=== PATIENT | female | born 1955 | race Caucasian/White ===

== ENCOUNTER 2022-04-02 06:54 | Inpatient (IN) | payer MEDICARE, SELFPAY ==
[2022-04-02] VITALS (10 sets, daily range): BP systolic 119–141; BP diastolic 56–73; PULSE 76–115; RESP 15–28; TEMP 36.6–37.1; O2SAT 92–100; BMI 25.0
--- NOTE | 2022-04-02 | ECG_ITS ---
Test Reason : HYPOXIC Blood Pressure : / mmHG Vent. Rate : 080 BPM Atrial Rate : 080 BPM P-R Int : 128 ms QRS Dur : 080 ms QT Int : 376 ms P-R-T Axes : 066 062 070 degrees QTc Int : 433 ms Normal sinus rhythm ST & T wave abnormality, consider anterior ischemia Abnormal ECG When compared with ECG of 02-APR-2022 07:54, Premature supraventricular complexes are no longer Present Nonspecific T wave abnormality no longer evident in Inferior leads Referred By: Eliza Hendricks Electronically Signed By:LAURA SANDERSON MD
--- NOTE | ~2022-04-02 | CT_ITS ---
EXAMINATION: CT HEAD WITHOUT CONTRAST CLINICAL INFORMATION: Seizures. Altered mental status. COMPARISON: Brain MRI 10/08/2016. CT head 09/15/2012. TECHNIQUE: Contiguous axial imaging was performed from the skull base to vertex without intravenous administration of contrast. This CT examination was performed using dose optimization techniques as appropriate, variously including the following: *Automated exposure control *Adjustment of mA and/or kV according to patient size (this includes techniques or standardized protocols for targeted exams where dose is matched to indication/reason for exam; i.e. extremities or head) *Use of iterative reconstruction technique DLP: 702 mGy-cm FINDINGS: There is no acute intracranial hemorrhage or abnormal extra axial question. No intracranial mass effect or midline shift. Lateral and third ventricles are normal. No hydrocephalus. Jennings-white matter differentiation is grossly preserved and there is no evidence of acute territorial infarct. The calvarium and skull base are intact. Mastoid air cells and middle ear cavities are well aerated. No active paranasal sinus disease. CT/CT head/brain wo IV con IMPRESSION: Unremarkable CT scan of the head. No evidence of acute territorial infarct or hemorrhage. No intracranial mass effect or hydrocephalus.
--- NOTE | ~2022-04-02 | XR_ITS ---
EXAMINATION: XR CHEST CLINICAL INFORMATION: Dyspnea. COMPARISON: 09/15/2012 chest radiographs. TECHNIQUE: Frontal view of the chest was obtained. FINDINGS: No significant abnormality is noted involving the heart, lungs, mediastinum, bony thorax or soft tissues. XR/XR chest 1V IMPRESSION: No acute cardiopulmonary process.
--- NOTE | ~2022-04-02 | US_ITS ---
EXAMINATION: US VENOUS ULTRASOUND WITH DOPPLER LOWER EXTREMITY, BILATERAL CLINICAL INFORMATION: Hypoxia, lower extremity pain. On Eliquis. COMPARISON: None TECHNIQUE: Ultrasound of the deep veins is performed from the hip to the calf with compression sonography and color and pulse Doppler assessment. Spectral analysis with color-flow imaging is performed. FINDINGS: RIGHT: There is normal venous compression and respiratory variation and augmented flow. The visualized common femoral vein, superficial femoral vein, profunda femoral vein, popliteal vein, and the trifurcation region shows no evidence of deep venous thrombosis. There is no significant popliteal fossa cyst. LEFT: There is normal venous compression and respiratory variation and augmented flow. The visualized common femoral vein, superficial femoral vein, profunda femoral vein, popliteal vein, and the trifurcation region shows no evidence of deep venous thrombosis. There is no significant popliteal fossa cyst. If the patient's symptoms persist, followup ultrasound in 5 days 7 days might be of value to exclude proximal propagation from a non-visualized calf vein. US/US venous duplex LE BI IMPRESSION: No evidence for deep venous thrombosis in the visualized veins of the bilateral lower extremities.
--- NOTE | ~2022-04-02 | CT_ITS ---
EXAMINATION: CT ANGIOGRAM OF THE CHEST WITH AND WITHOUT CONTRAST (CT PULMONARY ANGIOGRAM FOR PE) CLINICAL INFORMATION: hypoxia, tachycardia COMPARISON: 10/22/2013 surgery TECHNIQUE: Prior to contrast administration, noncontrast localization images were obtained. Subsequently, multidetector volumetric imaging was performed from the thoracic inlet to below the diaphragms following the administration of 80 mL Omnipaque 350 intravenous contrast. No contrast reaction reported Sagittal, coronal, and MIP oblique sagittal reformatted images were obtained on the CT workstation, uploaded to PACS, and reviewed. This CT examination was performed using dose optimization techniques as appropriate, variously including the following: *Automated exposure control *Adjustment of mA and/or kV according to patient size (this includes techniques or standardized protocols for targeted exams where dose is matched to indication/reason for exam; i.e. extremities or head) *Use of iterative reconstruction technique Total exam dose-length product 290 mGy-cm FINDINGS: QUALITY OF STUDY/CONTRAST BOLUS: Satisfactory. PULMONARY ARTERIES: No central or segmental pulmonary emboli. THORACIC AORTA: No aneurysm or dissection. LUNG: Since the prior study in 2013, there is marked volume loss of the right upper lobe with corresponding hyperinflation of the right lower lobe. There is some degree of volume loss of the right middle lobe though less than what is noted of the right upper lobe. Mild central bronchial wall thickening. PLEURA: No pleural effusion or pneumothorax. MEDIASTINUM: Normal heart size. No pericardial effusion. No hilar or mediastinal lymphadenopathy. No evidence of septal bowing or right heart strain. CHEST WALL/AXILLA: No axillary or internal mammary lymphadenopathy. OSSEOUS STRUCTURES: Multilevel degenerative disc disease of the thoracic spine. No acute or suspicious osseous abnormality. UPPER ABDOMEN: Small to moderate hiatal hernia. No adrenal mass. Prior cholecystectomy. No reflux of contrast into the hepatic veins to suggest elevated right heart pressures. CT/CT angio chest PE protocol IMPRESSION: No pulmonary embolus seen. Since the prior study in 2013, there is marked volume loss of the right upper lobe with corresponding hyperinflation of the right lower lobe. Recommend correlation with history of prior surgery. Consider nonemergent pulmonary consultation for further evaluation including bronchoscopy as clinically indicated to exclude a central obstructing abnormality although no mass or lymphadenopathy is seen. VTE: negative
--- NOTE | 2022-04-02 07:04 | ECG_ITS ---
Test Reason : HYPOXIA Blood Pressure : / mmHG Vent. Rate : 093 BPM Atrial Rate : 093 BPM P-R Int : 136 ms QRS Dur : 074 ms QT Int : 332 ms P-R-T Axes : 072 060 091 degrees QTc Int : 412 ms Sinus rhythm with Premature supraventricular complexes ST & T wave abnormality, consider anterolateral ischemia Abnormal ECG When compared with ECG of 15-SEP-2012 18:42, Premature supraventricular complexes are now Present Inverted T waves have replaced nonspecific T wave abnormality in Anterior leads ST more depressed Inferior leads Referred By: Tiny Loyola Electronically Signed By:LAURA SANDERSON MD
--- NOTE | 2022-04-02 07:09 | ED.SOB ---
HPI - SOB/Dyspnea General Chief Complaint: Upper Respiratory Symptoms Stated Complaint: AMS,4PT REST D/T COMBATIVE PER EMS Source: patient and EMS Mode of arrival: EMS Limitations: altered mental status History of Present Illness HPI Narrative: 66 yo female with hx of afib on verapamil and eliquis, emphysema on 2.5L of home O2, former smoker was recently treated for URI not COVID at [facility] unsure when. Per EMS patient's heard a noise in the room next door and the patient was found thrashing around and altered. EMS notes O2 levels were very low undetectable on their machine patient was agitated and combative. She was put on oxygen and 4P restrains for safety. Once given O2 en route she woke up and improved drastically. MD elicited complaint: shortness of breath (AMS, hypoxia) Pertinent past history: COPD Onset (ago): unknown Context: recent illness Timing: improved Severity: severe Exacerbating factors: coughing Relieving factors: oxygen Known history of: COPD Associated symptoms: cough, wheezing, sputum production, chest congestion and other (AMS) Treatment prior to arrival: oxygen Related Data Allergies Allergy/AdvReac Type Severity Reaction Status Date / Time No Known Allergies Allergy Unverified 02/27/20 15:55 Review of Systems Review of Systems: ROS unable to be obtained due to altered mental status [facility] Past Medical History Attestation statement: The following information was validated with the patient. Medical History Afib Emphysema/COPD HTN (hypertension) Social History Social History (Updated 04/02/22 @ 07:17 by Tiny Loyola DO) Patient Tobacco Use Status: Former Tobacco user Smoked in Last 30 Days: No Use of substances other than those prescribed or required for medical reasons: No Advance Directives: No Physical Exam Vital Signs: Vital Signs: Last Vital Signs Temp 98.7 F 04/02/22 08:56 Pulse 115 H 04/02/22 09:56 Resp 26 H 04/02/22 09:56 BP 140/61 H 04/02/22 08:54 Pulse Ox 94 04/02/22 08:54 O2 Del Method 04/02/22 08:54 O2 Flow Rate 2.5 04/02/22 08:54 Oxygen Flow Rate 2 04/02/22 07:15 BMI result Body Mass Index 25.0 Appearance: Somnolent Oriented X3 - slow to respond. Mild acute distress. Eyes: Pupils equal, round and reactive to light. ENT: Pharynx normal. Atraumatic Neck: Normal inspection. Neck supple. CVS: irregular heart rate and rhythm. Pulses normal. Respiratory: mild respiratory distress - tachypnea/retractions. Breath sounds diminished - coarse cough wheezes throughout Abdomen: Soft and nontender. Skin: Skin warm and dry. Normal skin color. Normal skin turgor. Extremities: No lower extremity edema. No calf ttp Neuro: Oriented X 3. No motor deficit. No sensory deficit. Course Course Course Narrative: improving on neb - alert and oriented x 3. states she felt okay prior to sleep still cannot give history of [place] visit. asking or records 718am Monday went to [facility] just in ED sent home with prednisone x 4 days - no antibiotics. in and out of afib low dose dilt ordered, repeat xopenex ordered [facility] notes from 2019 possible seizure was on lamictal EEG no overt seizure activity episode afib vs seizure has been taking off seizure medications since then. c/o hand pain in both hands - at sites of restraint has some bruising starting, full ROM of hands but is is painful to her, suspect contusions, brisk pulses in both hands any coughing throws patient into bronchospastic fit- tessalon ordered of note patient could have had seizure as well today cannot rule out - GCS 15, alert and oriented. no headaches doubt ICH started dilt gtt for rapid afib converted to NSR off dilt gtt MDM - SOB/Dyspnea MDM Narrative Medical decision making narrative: 66 yo female with hx of afib on verapamil and eliquis, emphysema on 2.5L of home O2, former smoker - at this time presents with agitation/hypoxia at home was combative off of her home o2. Had recent infection but unsure what that means. She is improving since O2 with EMS and neb treatment in ED. At this time suspect hypoxia as cause of her initial AMS given such improvement with supplementation. At this time doubt ICH given improvement with oxygen, lack of headache, no trauma reported. Will need labs, lactic acid, cultures, 7.5mg neb, IV steroids, IV antibiotics. Planned admit given recent treatment and failed outpatient therapy for presumed URI. Lab Data Result diagrams: 04/02/22 07:40 04/02/22 07:40 Labs: Lab Results 04/02/22 04/02/22 04/02/22 Range/Units 07:40 07:40 07:40 WBC 11.2 H (4.8-10.8) X10*3/uL RBC 4.58 (4.20-5.50) X10*6/uL Hgb 13.6 (12.0-16.0) g/dl Hct 41.1 (37.0-47.0) % MCV 89.7 (80.0-98.0) fL MCH 29.7 (27.0-33.0) pg MCHC 33.1 (31.0-35.0) g/dl RDW 13.2 (11.0-16.0) % Plt Count 235 (160-400) X10*3/uL MPV 9.3 L (9.4-12.3) fL Immature Gran % (Auto) 1.2 H (0.0-0.4) % Neut % (Auto) 81.4 H (45-73) % Lymph % (Auto) 12.5 L (20-40) % [place] % (Auto) 4.4 (2-11) % Eos % (Auto) 0.2 (0-4) % Baso % (Auto) 0.3 (0-2) % Lymph # (Auto) 1.4 (1.2-4.9) X10*3/uL [place] # (Auto) 0.5 (0.1-1.2) X10*3/uL Eos # (Auto) 0.0 (0.0-0.4) X10*3/uL Baso # (Auto) 0.0 (0.0-0.2) X10*3/uL Abs Immat Gran (auto) 0.13 H (0.00-0.03) X10*3/uL Absolute Neuts (auto) 9.2 H (2.0-8.3) x10*3/uL Absolute Nucleated RBC 0.000 (0.0-0.012) X10*3/uL Nucleated RBC % (auto) 0.0 (0.0-0.2) /100WBC PT (10.0-13.1) SEC INR (0.9-1.1) VBG pH (7.32-7.43) VBG pCO2 mmHg VBG pO2 mmHg VBG HCO3 (22-26) mmol/L VBG O2 Saturation % VBG Base Excess mmol/L Sodium 144 (135-145) mmol/L Potassium 3.0 L (3.3-5.1) mmol/L Chloride 101 (96-108) mmol/L Carbon Dioxide 29 (22-29) mmol/L Anion Gap 17 (12-20) BUN 14 (9-16) mg/dL Creatinine 0.75 (0.5-1.4) mg/dL Estim Creat Clear Calc 68.1 Estimated GFR > 60 Random Glucose 111 (60-115) mg/dL Lactic Acid (0.5-2.0) mmol/L Calcium 9.3 (8.4-10.2) mg/dL Magnesium 2.0 (1.6-2.6) mg/dL Total Bilirubin 0.4 (0.0-1.0) mg/dL Direct Bilirubin 0.2 (0.0-0.5) mg/dL AST 24 (5-31) U/L ALT 19 (0-31) U/L Alkaline Phosphatase 137 H (39-117) U/L Troponin I High Sens (<3.5-17.0) ng/L B-Natriuretic Peptide 87 (<100) pg/mL Total Protein 7.1 (6.5-8.0) g/dL Albumin 4.5 (3.5-5.0) g/dL Lipase 15 (8-78) U/L Procalcitonin ng/mL COVID-19 ([facility]) (Negative) COVID-19 Clin Com 04/02/22 04/02/22 04/02/22 Range/Units 07:40 07:40 07:40 WBC (4.8-10.8) X10*3/uL RBC (4.20-5.50) X10*6/uL Hgb (12.0-16.0) g/dl Hct (37.0-47.0) % MCV (80.0-98.0) fL MCH (27.0-33.0) pg MCHC (31.0-35.0) g/dl RDW (11.0-16.0) % Plt Count (160-400) X10*3/uL MPV (9.4-12.3) fL Immature Gran % (Auto) (0.0-0.4) % Neut % (Auto) (45-73) % Lymph % (Auto) (20-40) % [place] % (Auto) (2-11) % Eos % (Auto) (0-4) % Baso % (Auto) (0-2) % Lymph # (Auto) (1.2-4.9) X10*3/uL [place] # (Auto) (0.1-1.2) X10*3/uL Eos # (Auto) (0.0-0.4) X10*3/uL Baso # (Auto) (0.0-0.2) X10*3/uL Abs Immat Gran (auto) (0.00-0.03) X10*3/uL Absolute Neuts (auto) (2.0-8.3) x10*3/uL Absolute Nucleated RBC (0.0-0.012) X10*3/uL Nucleated RBC % (auto) (0.0-0.2) /100WBC PT 14.6 H (10.0-13.1) SEC INR 1.3 H (0.9-1.1) VBG pH (7.32-7.43) VBG pCO2 mmHg VBG pO2 mmHg VBG HCO3 (22-26) mmol/L VBG O2 Saturation % VBG Base Excess mmol/L Sodium (135-145) mmol/L Potassium (3.3-5.1) mmol/L Chloride (96-108) mmol/L Carbon Dioxide (22-29) mmol/L Anion Gap (12-20) BUN (9-16) mg/dL Creatinine (0.5-1.4) mg/dL Estim Creat Clear Calc Estimated GFR Random Glucose (60-115) mg/dL Lactic Acid 2.6 H* (0.5-2.0) mmol/L Calcium (8.4-10.2) mg/dL Magnesium (1.6-2.6) mg/dL Total Bilirubin (0.0-1.0) mg/dL Direct Bilirubin (0.0-0.5) mg/dL AST (5-31) U/L ALT (0-31) U/L Alkaline Phosphatase (39-117) U/L Troponin I High Sens (<3.5-17.0) ng/L B-Natriuretic Peptide (<100) pg/mL Total Protein (6.5-8.0) g/dL Albumin (3.5-5.0) g/dL Lipase (8-78) U/L Procalcitonin ng/mL COVID-19 ([facility]) Negative (Negative) COVID-19 Clin Com See Note 04/02/22 04/02/22 04/02/22 Range/Units 07:40 07:40 07:48 WBC (4.8-10.8) X10*3/uL RBC (4.20-5.50) X10*6/uL Hgb (12.0-16.0) g/dl Hct (37.0-47.0) % MCV (80.0-98.0) fL MCH (27.0-33.0) pg MCHC (31.0-35.0) g/dl RDW (11.0-16.0) % Plt Count (160-400) X10*3/uL MPV (9.4-12.3) fL Immature Gran % (Auto) (0.0-0.4) % Neut % (Auto) (45-73) % Lymph % (Auto) (20-40) % [place] % (Auto) (2-11) % Eos % (Auto) (0-4) % Baso % (Auto) (0-2) % Lymph # (Auto) (1.2-4.9) X10*3/uL [place] # (Auto) (0.1-1.2) X10*3/uL Eos # (Auto) (0.0-0.4) X10*3/uL Baso # (Auto) (0.0-0.2) X10*3/uL Abs Immat Gran (auto) (0.00-0.03) X10*3/uL Absolute Neuts (auto) (2.0-8.3) x10*3/uL Absolute Nucleated RBC (0.0-0.012) X10*3/uL Nucleated RBC % (auto) (0.0-0.2) /100WBC PT (10.0-13.1) SEC INR (0.9-1.1) VBG pH 7.35 (7.32-7.43) VBG pCO2 54 mmHg VBG pO2 41 mmHg VBG HCO3 30 H (22-26) mmol/L VBG O2 Saturation 65.0 % VBG Base Excess 4.0 mmol/L Sodium (135-145) mmol/L Potassium (3.3-5.1) mmol/L Chloride (96-108) mmol/L Carbon Dioxide (22-29) mmol/L Anion Gap (12-20) BUN (9-16) mg/dL Creatinine (0.5-1.4) mg/dL Estim Creat Clear Calc Estimated GFR Random Glucose (60-115) mg/dL Lactic Acid (0.5-2.0) mmol/L Calcium (8.4-10.2) mg/dL Magnesium (1.6-2.6) mg/dL Total Bilirubin (0.0-1.0) mg/dL Direct Bilirubin (0.0-0.5) mg/dL AST (5-31) U/L ALT (0-31) U/L Alkaline Phosphatase (39-117) U/L Troponin I High Sens 5.1 (<3.5-17.0) ng/L B-Natriuretic Peptide (<100) pg/mL Total Protein (6.5-8.0) g/dL Albumin (3.5-5.0) g/dL Lipase (8-78) U/L Procalcitonin 0.03 ng/mL COVID-19 ([facility]) (Negative) COVID-19 Clin Com 04/02/22 Range/Units 09:00 WBC (4.8-10.8) X10*3/uL RBC (4.20-5.50) X10*6/uL Hgb (12.0-16.0) g/dl Hct (37.0-47.0) % MCV (80.0-98.0) fL MCH (27.0-33.0) pg MCHC (31.0-35.0) g/dl RDW (11.0-16.0) % Plt Count (160-400) X10*3/uL MPV (9.4-12.3) fL Immature Gran % (Auto) (0.0-0.4) % Neut % (Auto) (45-73) % Lymph % (Auto) (20-40) % [place] % (Auto) (2-11) % Eos % (Auto) (0-4) % Baso % (Auto) (0-2) % Lymph # (Auto) (1.2-4.9) X10*3/uL [place] # (Auto) (0.1-1.2) X10*3/uL Eos # (Auto) (0.0-0.4) X10*3/uL Baso # (Auto) (0.0-0.2) X10*3/uL Abs Immat Gran (auto) (0.00-0.03) X10*3/uL Absolute Neuts (auto) (2.0-8.3) x10*3/uL Absolute Nucleated RBC (0.0-0.012) X10*3/uL Nucleated RBC % (auto) (0.0-0.2) /100WBC PT (10.0-13.1) SEC INR (0.9-1.1) VBG pH (7.32-7.43) VBG pCO2 mmHg VBG pO2 mmHg VBG HCO3 (22-26) mmol/L VBG O2 Saturation % VBG Base Excess mmol/L Sodium (135-145) mmol/L Potassium (3.3-5.1) mmol/L Chloride (96-108) mmol/L Carbon Dioxide (22-29) mmol/L Anion Gap (12-20) BUN (9-16) mg/dL Creatinine (0.5-1.4) mg/dL Estim Creat Clear Calc Estimated GFR Random Glucose (60-115) mg/dL Lactic Acid (0.5-2.0) mmol/L Calcium (8.4-10.2) mg/dL Magnesium (1.6-2.6) mg/dL Total Bilirubin (0.0-1.0) mg/dL Direct Bilirubin (0.0-0.5) mg/dL AST (5-31) U/L ALT (0-31) U/L Alkaline Phosphatase (39-117) U/L Troponin I High Sens 10.2 D (<3.5-17.0) ng/L B-Natriuretic Peptide (<100) pg/mL Total Protein (6.5-8.0) g/dL Albumin (3.5-5.0) g/dL Lipase (8-78) U/L Procalcitonin ng/mL COVID-19 ([facility]) (Negative) COVID-19 Clin Com ECG Data Attestation: I personally reviewed and interpreted this ECG as follows: ECG interpretation date: 04/02/22 ECG interpretation time: 08:03 Interpretation: Rate: 93 Rhythm: NSR with PACs [place]: normal Normal QRS complex. ST T wave : ST depressions slight depressions II, III, aVF, V1-V6 no YVETTE qTC: normal prior studies: none available INITIAL PART OF THE RHYTHM APPEARED AFIB THEN NSR The study has been interpreted contemporaneously by me. EKG#2 Rate: 80 Rhythm: NSR [place]: normal Normal P waves. Normal HEATHER. Normal QRS complex. ST T wave : inverted t waves aVL, V1-V3, nonspecific V4-V6 no YVETTE qTC: normal prior studies: converted to NSR The study has been interpreted contemporaneously by me. . Critical Care Time Critical Care Time Critical Care Time: Yes Total Critical Care Time: 60 Attestation: hour long neb, IV steroids, IV antibiotics, reassessments, dilt gtt, review of outside records I attest to this time spent taking care of the patient Discharge Plan Discharge Clinical Impression: Acute exacerbation of chronic obstructive pulmonary disease, Atrial fibrillation with rapid ventricular response, Acute hypokalemia, Acidosis, lactic Upper respiratory infection Qualifiers: URI type: unspecified URI Qualified Code(s): J06.9 - Acute upper respiratory infection, unspecified Patient Disposition: Admitted As Inpatient
[2022-04-02] MEDS: Albuterol Sulfate 5 MG, Albuterol/Iprat 2.5/0.5MG 3 ML 3 ML INHALE (07:12)
[2022-04-02 07:52] LABS: MANUAL DIFF FLAG NO; Venous Blood Gas Refer to POC result
[2022-04-02 07:53] LABS: Basophils Percent Auto 0.3 % (0-2); Eosinophils Percent Auto 0.2 % (0-4); Hematocrit 41.1 % (37.0-47.0); Hemoglobin 13.6 g/dl (12.0-16.0); Imm Gran Abs Auto 0.13 X10*3/uL (0.00-0.03); Imm Gran Pct Auto 1.2 % (0.0-0.4); Lymphocytes Absolute Auto 1.4 X10*3/uL (1.2-4.9); Lymphocytes Percent Auto 12.5 % (20-40); Mean Corpuscular HGB Conc 33.1 g/dl (31.0-35.0); Mean Corpuscular Hemoglobin 29.7 pg (27.0-33.0); Mean Corpuscular Volume 89.7 fL (80.0-98.0); Mean Platelet Volume 9.3 fL (9.4-12.3); Monocytes Absolute Auto 0.5 X10*3/uL (0.1-1.2); Monocytes Percent Auto 4.4 % (2-11); Neutrophils Absolute Auto 9.2 x10*3/uL (2.0-8.3); Neutrophils Percent Auto 81.4 % (45-73); Platelet Count 235 X10*3/uL (160-400); Red Blood Count 4.58 X10*6/uL (4.20-5.50); Red Cell Distribution Width 13.2 % (11.0-16.0); White Blood Count 11.2 X10*3/uL (4.8-10.8)
[2022-04-02 07:56] LABS: VBG HCO3 30 mmol/L (22-26); VBG pCO2 54 mmHg; VBG pH 7.35 (7.32-7.43); VBG pO2 41 mmHg
[2022-04-02] MEDS: cefTRIAXone sodium 1 GM in 0.9 % Sodium Chloride 50 ML IV (08:04)
[2022-04-02] MEDS: methylPREDNISolone Sod Succ 125 MG/2 ML VIAL IVPUSH (08:05)
[2022-04-02 08:07] LABS: INTERNATIONAL NORM RATIO 1.3 (0.9-1.1); Prothrombin Time 14.6 SEC (10.0-13.1)
[2022-04-02 08:24] LABS: Alanine Aminotransferase 19 U/L (0-31); Albumin Level 4.5 g/dL (3.5-5.0); Alkaline Phosphatase 137 U/L (39-117); Anion Gap 17 (12-20); Aspartate Amino Transferase 24 U/L (5-31); Bilirubin Direct 0.2 mg/dL (0.0-0.5); Bilirubin Total 0.4 mg/dL (0.0-1.0); Blood Urea Nitrogen 14 mg/dL (9-16); Calcium 9.3 mg/dL (8.4-10.2); Carbon Dioxide 29 mmol/L (22-29); Chloride 101 mmol/L (96-108); Creatinine Clr Calc Pharmacy 68.1; Estimated Glomerular Filt Rate > 60; Glucose Random 111 mg/dL (60-115); Lipase 15 U/L (8-78); Sodium 144 mmol/L (135-145); Total Protein 7.1 g/dL (6.5-8.0)
[2022-04-02 08:26] LABS: Troponin-I High Sensitivity 5.1 ng/L (<3.5-17.0)
[2022-04-02 08:30] LABS: B Type Natriuretic Peptide 87 pg/mL (<100)
[2022-04-02 08:31] LABS: COVID-19 Test Negative (Negative); IDNOW Serial# 16C4AD1C
[2022-04-02 08:44] LABS: Procalcitonin 0.03 ng/mL
[2022-04-02 08:45] LABS: Lactic Acid 2.6 mmol/L (0.5-2.0)
[2022-04-02] MEDS: dilTIAZem HCL 50 MG/10 ML VIAL IVPUSH (09:04)
[2022-04-02] MEDS: Azithromycin 500 MG in 0.9 % Sodium Chloride 250 ML 125 MG IV (09:06)
[2022-04-02] MEDS: Potassium Chloride Packet 20 MEQ PACKET 40 MEQ PO (09:06)
[2022-04-02] MEDS: 0.9 % Sodium Chloride 500 ML IV (09:17)
[2022-04-02 09:49] LABS: Reflex Lactate? Lactic Acid Added
[2022-04-02] MEDS: Albuterol Sulfate (0.083%) 2.5 MG/3 ML VIAL.NEB INHALE (09:55)
[2022-04-02] MEDS: Benzonatate 100 MG CAPSULE 200 MG PO (10:12)
--- NOTE | 2022-04-02 10:12 | PC.NURSE ---
pt had moderate amt of stool on bedpan. Feels better after updraft
[2022-04-02 10:45] LABS: Troponin-I High Sensitivity 10.2 ng/L (<3.5-17.0)
[2022-04-02] MEDS: dilTIAZem HCL 125 MG in 0.9 % Sodium Chloride 100 ML IVCONT (11:00)
[2022-04-02] MEDS: Acetaminophen 325 MG TABLET 975 MG PO (11:26)
[2022-04-02 12:21] LABS: ~Lactic Acid-LAB USE ONLY 1.7 mmol/L (0.5-2.0)
--- NOTE | 2022-04-02 12:59 | PHA.MEDREC ---
Pharmacy Consult ? Medication Reconciliation Pharmacy has completed the medication reconciliation. SPOKE WITH PATIENT IN ED WHO KNEW ALL MEDICATIONS. STATES SHE HAS WEANED HERSELF OFF OF LAMICTAL AND PAROXETINE AND HAS NOT TAKEN IN OVER A WEEK.
[2022-04-02 13:10] LABS: D Dimer High Sensitivity 302 NG/ML
--- NOTE | 2022-04-02 13:57 | PM.IMHP ---
History of Present Illness Date of Service: 04/02/22 Attending physician on admission: Ra Woodson Chief Complaint: seizure, hypoxia 66-year-old female with history of emphysema with chronic respiratory failure on 2 L home oxygen at baseline, atrial fibrillation anticoagulated with Eliquis, history of non-small cell lung cancer s/p right lobectomy, former smoker, and history of seizures previously on Lamictal which patient self discontinued presented to the ED this morning via EMS after her found her thrashing and altered. Upon arrival, EMS found the patient combative and placed her in 4 point restraints. She was hypoxic in the 60s and lost consciousness. She improved greatly with the administration of supplemental O2. On arrival patient was tachycardic to 115, tachypneic to 26 with oximetry of 92% on room air. She was replaced on 2 L O2. CXR was negative. EKG showed sinus tachycardia, rate [address]/T-wave abnormality and PVCs. Troponins negative. WBC 11.2. D-dimer 302. Venous duplex bilaterally negative. Initial lactic acid 2.6, repeat lactic acid 1.7. BNP 87. She was noted to be in AFib with RVR on monitoring tech given 5 mg diltiazem push without improvement and started on Cardizem drip. Patient to be admitted for seizure, COPD exacerbation, and AFib with RVR. Currently pt reports feeling fatigued. Does endorse productive cough and wheezing. Review of Systems Review of Systems: General: No fevers, malaise, unintentional weight loss Cardiovascular: No chest pain, palpitations, or leg edema Respiratory: +cough, wheezing. No shortness of breath GI: No abdominal pain, nausea, vomiting, diarrhea, constipation, melena, hematochezia : No dysuria, hematuria, increased urinary frequency Neuro: +seizure, +ams. No headaches, weakness, paresthesias Skin: No rashes or lesions [facility] Medical History (Updated 04/02/22 @ 14:29 by ALEXYS Solares) Afib Emphysema/COPD GERD (gastroesophageal reflux disease) HTN (hypertension) Seizure Family History (Updated 04/02/22 @ 14:13 by ALEXYS Solares) Mother Small cell lung cancer Father Stomach cancer Brother Diabetes Social History (Updated 04/02/22 @ 07:17 by Tiny Milla, DO) Patient Tobacco Use Status: Former Tobacco user Smoked in Last 30 Days: No Use of substances other than those prescribed or required for medical reasons: No Advance Directives: No Meds Allergies Allergy/AdvReac Type Severity Reaction Status Date / Time No Known Allergies Allergy Unverified 02/27/20 15:55 Active Medications: Current Medications Acetaminophen (Acetaminophen 325 Mg Tablet) 650 mg PO Q6H PRN PRN Reason: mild pain, headache Diltiazem HCl 125 mg/ Sodium (Chloride) 125 mls @ 0 mls/hr IVCONT .Q0M [facility]; Protocol Last Titration: 04/02/22 12:15 Dose: 0 mg/hr, 0 mls/hr Ondansetron HCl (Ondansetron Odt 4 Mg Tab.Rapdis) 4 mg TRANSLINGU Q8H PRN PRN Reason: Nausea and Vomiting Pharmacy Consult (Consult Rx Perform Med Rec) 1 each MISCELLANE ONCE PRN PRN Reason: Consult order Sodium Chloride (0.9 % Sodium Chloride Flush 3 Ml Syringe) [facility] Medications Medication Instructions Recorded Confirmed Last Taken Type albuterol sulfate 90 mcg/actuation 2 puff inhalation Q4H PRN 04/02/22 04/02/22 Unknown History aerosol inhaler Shortness Of Breath apixaban 5 mg tablet (Eliquis) 1 tab PO BID 04/02/22 04/02/22 04/01/22 History azithromycin 250 mg tablet 1 tab PO DAILY 04/02/22 04/02/22 04/01/22 History lorazepam 0.5 mg tablet 1 tab PO DAILY PRN anxiety 04/02/22 04/02/22 Unknown History omeprazole 40 mg capsule,delayed 1 cap PO BID@0630,1630 04/02/22 04/02/22 04/01/22 History release prednisone 20 mg tablet 1 tab PO BID 04/02/22 04/02/22 04/01/22 History verapamil 120 mg tablet,extended 1 tab PO BEDTIME 04/02/22 04/02/22 04/01/22 History release verapamil 240 mg tablet,extended 1 tab PO BEDTIME 04/02/22 04/02/22 04/01/22 History release Physical Exam Vital Signs and Narrative: Vital Signs: Last Vital Signs Temp 98.7 F 04/02/22 08:56 Pulse 78 04/02/22 12:16 Resp 15 04/02/22 12:16 BP 119/56 L 04/02/22 12:16 Pulse Ox 97 04/02/22 12:16 O2 Del Method 04/02/22 12:16 O2 Flow Rate 2.5 04/02/22 12:16 Oxygen Flow Rate 2 04/02/22 07:15 BMI result Body Mass Index 25.0 Constitutional - Awake and Alert, No apparent distress Eyes - PERRLA, EOMI Cardiovascular - S1S2, RRR, No edema Respiratory - Diffuse wheezing bilaterally/. Normal lung expansion, Normal respiratory effort, No respiratory distress Gastrointestinal - NT / ND; +BS; No rebound or guarding Extremities - no calf tenderness bilaterally, no swelling Skin - Warm/Dry Neurological - Alert & oriented x3, CN II -XII in tact, 5/5 strength bue and ble Psychological - Appropriate affect Results Labs CBC and Chem 7: 04/02/22 07:40 04/02/22 15:11 Labs: Laboratory Results - last 24 hr 04/02/22 04/02/22 04/02/22 07:40 07:40 07:40 MCV 89.7 MCH 29.7 MCHC 33.1 RDW 13.2 Plt Count 235 MPV 9.3 L Immature Gran % (Auto) 1.2 H Neut % (Auto) 81.4 H Lymph % (Auto) 12.5 L [place] % (Auto) 4.4 Eos % (Auto) 0.2 Baso % (Auto) 0.3 Lymph # (Auto) 1.4 [place] # (Auto) 0.5 Eos # (Auto) 0.0 Baso # (Auto) 0.0 Abs Immat Gran (auto) 0.13 H Absolute Neuts (auto) 9.2 H Absolute Nucleated RBC 0.000 Nucleated RBC % (auto) 0.0 PT INR D-Dimer High Sensitivty VBG pH VBG pCO2 VBG pO2 VBG HCO3 VBG O2 Saturation VBG Base Excess Anion Gap 17 Estim Creat Clear Calc 68.1 Estimated GFR > 60 Random Glucose 111 Lactic Acid Lactic Acid F/U @ 2Hr Calcium 9.3 Magnesium 2.0 Total Bilirubin 0.4 Direct Bilirubin 0.2 AST 24 ALT 19 Alkaline Phosphatase 137 H Troponin I High Sens B-Natriuretic Peptide 87 Total Protein 7.1 Albumin 4.5 Lipase 15 Procalcitonin COVID-19 ([facility]) COVID-19 Clin Com 04/02/22 04/02/22 04/02/22 07:40 07:40 07:40 MCV MCH MCHC RDW Plt Count MPV Immature Gran % (Auto) Neut % (Auto) Lymph % (Auto) [place] % (Auto) Eos % (Auto) Baso % (Auto) Lymph # (Auto) [place] # (Auto) Eos # (Auto) Baso # (Auto) Abs Immat Gran (auto) Absolute Neuts (auto) Absolute Nucleated RBC Nucleated RBC % (auto) PT 14.6 H INR 1.3 H D-Dimer High Sensitivty 302 VBG pH VBG pCO2 VBG pO2 VBG HCO3 VBG O2 Saturation VBG Base Excess Anion Gap Estim Creat Clear Calc Estimated GFR Random Glucose Lactic Acid 2.6 H* Lactic Acid F/U @ 2Hr Calcium Magnesium Total Bilirubin Direct Bilirubin AST ALT Alkaline Phosphatase Troponin I High Sens B-Natriuretic Peptide Total Protein Albumin Lipase Procalcitonin COVID-19 ([facility]) Negative COVID-19 Clin Com See Note 04/02/22 04/02/22 04/02/22 07:40 07:40 07:48 MCV MCH MCHC RDW Plt Count MPV Immature Gran % (Auto) Neut % (Auto) Lymph % (Auto) [place] % (Auto) Eos % (Auto) Baso % (Auto) Lymph # (Auto) [place] # (Auto) Eos # (Auto) Baso # (Auto) Abs Immat Gran (auto) Absolute Neuts (auto) Absolute Nucleated RBC Nucleated RBC % (auto) PT INR D-Dimer High Sensitivty VBG pH 7.35 VBG pCO2 54 VBG pO2 41 VBG HCO3 30 H VBG O2 Saturation 65.0 VBG Base Excess 4.0 Anion Gap Estim Creat Clear Calc Estimated GFR Random Glucose Lactic Acid Lactic Acid F/U @ 2Hr Calcium Magnesium Total Bilirubin Direct Bilirubin AST ALT Alkaline Phosphatase Troponin I High Sens 5.1 B-Natriuretic Peptide Total Protein Albumin Lipase Procalcitonin 0.03 COVID-19 ([facility]) COVID-19 Clin Com 04/02/22 04/02/22 09:00 11:48 MCV MCH MCHC RDW Plt Count MPV Immature Gran % (Auto) Neut % (Auto) Lymph % (Auto) [place] % (Auto) Eos % (Auto) Baso % (Auto) Lymph # (Auto) [place] # (Auto) Eos # (Auto) Baso # (Auto) Abs Immat Gran (auto) Absolute Neuts (auto) Absolute Nucleated RBC Nucleated RBC % (auto) PT INR D-Dimer High Sensitivty VBG pH VBG pCO2 VBG pO2 VBG HCO3 VBG O2 Saturation VBG Base Excess Anion Gap Estim Creat Clear Calc Estimated GFR Random Glucose Lactic Acid Lactic Acid F/U @ 2Hr 1.7 Calcium Magnesium Total Bilirubin Direct Bilirubin AST ALT Alkaline Phosphatase Troponin I High Sens 10.2 D B-Natriuretic Peptide Total Protein Albumin Lipase Procalcitonin COVID-19 ([facility]) COVID-19 Clin Com Imaging Radiologist's Impressions: Impressions Chest X-Ray 04/02/22 07:50 IMPRESSION: No acute cardiopulmonary process. Venous Duplex 04/02/22 13:21 IMPRESSION: No evidence for deep venous thrombosis in the visualized veins of the bilateral lower extremities. Assessment and Plan (1) Seizure: Status: Acute (2) Acute exacerbation of chronic obstructive pulmonary disease: Status: Acute (3) Acute and chronic respiratory failure with hypoxia: Status: Acute (4) Atrial fibrillation with rapid ventricular response: Status: Acute Plan 66-year-old female with history of emphysema with chronic respiratory failure on 2 L home oxygen at baseline, atrial fibrillation anticoagulated with Eliquis, history of non-small cell lung cancer s/p right lobectomy, former smoker, and history of seizures previously on Lamictal which patient self discontinued admitted for seizures with acute on chronic hypoxic respiratory failure and afib with rvr. #Possible seizure- unspecified type -History of seizures pt discontinued lamictal on her own. Found thrashing with AMS, hypoxia, elevated lactic acid 2.6 (repeat 1.7, not severe sepsis), leukocytosis 11 (likely reactive, not sepsis), and post ictal -neurology consulted -head CT ordered -initiate Lamictal 25 mg twice daily -seizure precautions -nursing bedside swallow evaluation -admit to telemetry # acute on chronic hypoxic respiratory failure likely secondary to seizure versus COPD exacerbation -on 2 L home O2. EMS found patient hypoxic with oximetry in the 60s. Currently 2 L O2 with oximetry 97% -continue supplemental O2 to maintain oxygen saturation greater than 92 % # atrial fibrillation with RVR -EKG showing sinus rhythm with AFib with RVR heart rate 115 noted on monitoring tech -given 5 mg diltiazem push with limited improvement in the ER and started on diltiazem drip -converted to sinus rhythm -Dilt drip discontinued. Initiate verapamil which she takes at home 90 mg q.i.d. resume home dose verapamil 360 mg at bedtime tomorrow -continue Eliquis -repeat EKG -cardiology consulted -admit to telemetry # abnormal EKG -sinus rhythm with ST/T-wave abnormalities including new T-wave inversions -denies any chest pain -troponins negative -cardiology consult # acute COPD exacerbation -CXR negative -patient with acute on chronic hypoxic respiratory failure -IV Solu-Medrol -Duonebs q4h while awake -continue supplemental O2. On 2 L O2 at home -azithromycin x3 days # elevated D-dimer 302 -bilaterally anus duplex negative -patient asymptomatic -D-dimer elevation likely secondary to seizure and is covered by Eliquis, PE unlikely -consider additional workup if worsening hypoxia #Hypokalemia -Given 40meq kcl in ed -repeat bmp at 1500 DVT prophylaxis-on Eliquis Full code Patient requires inpatient stay of at least 2 midnights due to acute on chronic hypoxic respiratory failure secondary to COPD exacerbation or seizure as well as atrial fibrillation with RVR requiring diltiazem drip and IV Solu-Medrol and supplemental oxygen support above baseline Quality Stroke Does the patient have a stroke diagnosis?: No VTE Prior VTE?: No VTE Risk Level:: Medical - moderate - high VTE Device Contraindication: Treatment Not Indicated VTE Drug Contraindication: N/A - Med Ordered
[2022-04-02 14:55] LABS: Appearance Urine Clear; Color Urine Yellow; Glucose Urine UA Negative (Negative); Leukocyte Esterase Urine Trace (Negative); Nitrite Urine Negative (Negative); Specific Gravity - Urine 1.015 (1.005-1.025); UMIC TRIGGER UACC YES; Urine Blood Negative (Negative); Urine Ketones Negative (Negative); Urine Protein Trace mg/dL (Neg-Trace)
[2022-04-02 15:04] LABS: Bacteria Urine Trace (None Seen); Hyaline Casts Urine 0-2 /LPF (0-2); RBC Urine 0-2 /HPF (0-2); UACC Culture Trigger YES
[2022-04-02 15:56] LABS: Anion Gap 16 (12-20); Blood Urea Nitrogen 14 mg/dL (9-16); Calcium 8.6 mg/dL (8.4-10.2); Carbon Dioxide 25 mmol/L (22-29); Chloride 106 mmol/L (96-108); Estimated Glomerular Filt Rate > 60; Glucose Random 153 mg/dL (60-115); Potassium 4.1 mmol/L (3.3-5.1); Sodium 143 mmol/L (135-145)
--- NOTE | 2022-04-02 15:56 | P.CNNE_ITS ---
History of Present Illness Data of Consult Service Date: 04/02/22 Primary Care Provider: Giovanna Garcia NP HPI Reason for consult: Seizure, COPD exacerbation This is a 66-year-old female with history of emphysema with chronic respiratory failure on 2 L home oxygen at baseline, atrial fibrillation anticoagulated with Eliquis, non-small cell lung cancer s/p right lobectomy, and history of seizures previously on Lamictal which patient self discontinued. She presented to the ED this morning via EMS after her found her thrashing and altered.? Upon arrival, EMS found the patient combative and placed her in 4 point restraints.? She was hypoxic in the 60s and lost consciousness.? She improved greatly with the administration of supplemental O2.? On arrival patient was tachycardic to 115, tachypneic to 26 with oximetry of 92% on room air.? She was replaced on 2 L O2.? CXR was negative.? EKG showed sinus tachycardia, rate [address]/T-wave abnormality and PVCs.? Troponins negative.? WBC 11.2.? D-dimer 302.? Venous duplex bilaterally negative.? Initial lactic acid 2.6, repeat lactic acid 1.7.? BNP 87.? She was noted to be in AFib with RVR on patient monitor given 5 mg diltiazem push without improvement and started on Cardizem drip.? Patient to be admitted for seizure, COPD exacerbation, and AFib with RVR. Currently pt reports feeling fatigued. CT brain was negative Review of Systems Review of Systems: General: No fevers, malaise, unintentional weight loss Cardiovascular: No chest pain, palpitations, or leg edema Respiratory: +cough, wheezing. No shortness of breath GI: No abdominal pain, nausea, vomiting, diarrhea, constipation, melena, hematochezia : No dysuria, hematuria, increased urinary frequency Neuro: +seizure, +ams. No headaches, weakness, paresthesias Skin: No rashes or lesions PMFSH Past Medical History Medical History (Updated 04/02/22 @ 14:29 by ALEXYS Solares) Afib Emphysema/COPD GERD (gastroesophageal reflux disease) HTN (hypertension) Seizure Family History Family History (Updated 04/02/22 @ 14:13 by ALEXYS Solares) Mother Small cell lung cancer Father Stomach cancer Brother Diabetes Social History Social History (Updated 04/02/22 @ 07:17 by Tiny Loyola DO) Patient Tobacco Use Status: Former Tobacco user Smoked in Last 30 Days: No Use of substances other than those prescribed or required for medical reasons: No Advance Directives: No Meds Allergies Allergy/AdvReac Type Severity Reaction Status Date / Time No Known Allergies Allergy Unverified 02/27/20 15:55 Active Medications: Current Medications Acetaminophen (Acetaminophen 325 Mg Tablet) 650 mg PO Q6H PRN PRN Reason: mild pain, headache Albuterol/Ipratropium (Albuterol/Iprat 2.5/0.5mg 3 Ml Ampul.Neb) 3 ml INHALE RQ4H WHILE AWAKE SHELBI Apixaban (Apixaban 5 Mg Tablet) 5 mg PO BID SHELBI Guaifenesin (Guaifenesin 200 Mg/10 Ml 10 Ml Liquid) 10 ml PO Q6H PRN PRN Reason: Cough Azithromycin 500 mg/ Sodium (Chloride) 250 mls @ 125 mls/hr IV Q24H SHELBI Lamotrigine (Lamotrigine 25 Mg Tablet) 25 mg PO BID SHELBI Lorazepam (Lorazepam 0.5 Mg Tablet) 0.5 mg PO DAILY PRN PRN Reason: anxiety Methylprednisolone Sodium Succinate (Methylprednisolone Sod Succ 40 Mg/Ml Vial) 40 mg IVPUSH Q12H SHELBI Omeprazole (Omeprazole 40 Mg Capsule.Dr) 40 mg PO BID@0630,1630 SHELBI Ondansetron HCl (Ondansetron Odt 4 Mg Tab.Rapdis) 4 mg TRANSLINGU Q8H PRN PRN Reason: Nausea and Vomiting Pharmacy Consult (Consult Rx Perform Med Rec) 1 each MISCELLANE ONCE PRN PRN Reason: Consult order Sodium Chloride (0.9 % Sodium Chloride Flush 3 Ml Syringe) 3 ml IVFLUSH QSHIFT SHELBI Verapamil HCl (Verapamil Hcl 40 Mg Tablet) 90 mg PO QID SHELBI; Protocol Last Admin: 04/02/22 15:19 Dose: Not Given Home Medications Medication Instructions Recorded Confirmed Last Taken Type albuterol sulfate 90 mcg/actuation 2 puff inhalation Q4H PRN 04/02/22 04/02/22 Unknown History aerosol inhaler Shortness Of Breath apixaban 5 mg tablet (Eliquis) 1 tab PO BID 04/02/22 04/02/22 04/01/22 History azithromycin 250 mg tablet 1 tab PO DAILY 04/02/22 04/02/22 04/01/22 History lorazepam 0.5 mg tablet 1 tab PO DAILY PRN anxiety 04/02/22 04/02/22 Unknown History omeprazole 40 mg capsule,delayed 1 cap PO BID@0630,1630 04/02/22 04/02/22 04/01/22 History release prednisone 20 mg tablet 1 tab PO BID 04/02/22 04/02/22 04/01/22 History verapamil 120 mg tablet,extended 1 tab PO BEDTIME 04/02/22 04/02/22 04/01/22 History release verapamil 240 mg tablet,extended 1 tab PO BEDTIME 04/02/22 04/02/22 04/01/22 History release Physical Exam Vital Signs: Vital Signs: Last Vital Signs Temp 98.7 F 04/02/22 08:56 Pulse 76 04/02/22 15:46 Resp 28 H 04/02/22 15:46 BP 125/66 04/02/22 15:46 Pulse Ox 98 04/02/22 15:46 O2 Del Method 04/02/22 15:46 O2 Flow Rate 2.5 04/02/22 15:46 Oxygen Flow Rate 2 04/02/22 07:15 BMI result Body Mass Index 25.0 Neuro: Other: Non focal exam Results Labs CBC & Chem 7: 04/02/22 07:40 04/02/22 07:40 Labs: Short CBC 04/02/22 Range/Units 07:40 WBC 11.2 H (4.8-10.8) X10*3/uL Hgb 13.6 (12.0-16.0) g/dl Hct 41.1 (37.0-47.0) % Plt Count 235 (160-400) X10*3/uL BMP 04/02/22 07:40 Sodium 144 Potassium 3.0 L Chloride 101 Carbon Dioxide 29 BUN 14 Creatinine 0.75 Calcium 9.3 Liver Function 04/02/22 Range/Units 07:40 Total Bilirubin 0.4 (0.0-1.0) mg/dL Direct Bilirubin 0.2 (0.0-0.5) mg/dL AST 24 (5-31) U/L ALT 19 (0-31) U/L Alkaline Phosphatase 137 H (39-117) U/L Albumin 4.5 (3.5-5.0) g/dL Urine 04/02/22 Range/Units 14:48 Urine Color Yellow Urine Appearance Clear Urine pH 6.0 (5.0-9.0) Ur Specific [place] 1.015 (1.005-1.025) Urine Protein Trace (Neg-Trace) mg/dL Urine Glucose (UA) Negative (Negative) mg/dL Assessment and Plan (1) Seizure: Status: Acute PH of seizures, having stopped Lamotrigine on her own with probable breakthrough seizure CT brain negative. Recom. EEG on Monday. Restart Lamotrigine 200mg bid. (2) Acute exacerbation of chronic obstructive pulmonary disease: Status: Acute (3) Acute and chronic respiratory failure with hypoxia: Status: Acute (4) Atrial fibrillation with rapid ventricular response: Status: Acute Contnue Eliquis fro stroke prevention. Plan 66-year-old female with history of emphysema with chronic respiratory failure on 2 L home oxygen at baseline, atrial fibrillation anticoagulated with Eliquis, history of non-small cell lung cancer s/p right lobectomy, former smoker, and history of seizures previously on Lamictal which patient self discontinued admitted for seizures with acute on chronic hypoxic respiratory failure and afib with rvr. #Possible seizure- unspecified type -History of seizures pt discontinued lamictal on her own. Found thrashing with AMS, hypoxia, elevated lactic acid 2.6 (repeat 1.7, not severe sepsis), l eukocytosis 11 (likely reactive, not sepsis), and post ictal -neurology consulted -head CT ordered -initiate Lamictal 25 mg twice daily -seizure precautions -nursing bedside swallow evaluation -admit to telemetry # acute on chronic hypoxic respiratory failure likely secondary to seizure versus COPD exacerbation -on 2 L home O2. EMS found patient hypoxic with oximetry in the 60s. Currently 2 L O2 with oximetry 97% -continue supplemental O2 to maintain oxygen saturation greater than 92 % # atrial fibrillation with RVR -EKG showing sinus rhythm with AFib with RVR heart rate 115 noted on patient monitor -given 5 mg diltiazem push with limited improvement in the ER and started on diltiazem drip -converted to sinus rhythm -Dilt drip discontinued. Initiate verapamil which she takes at home 90 mg q.i.d. resume home dose verapamil 360 mg at bedtime tomorrow -continue Eliquis -repeat EKG -cardiology consulted -admit to telemetry # abnormal EKG -sinus rhythm with ST/T-wave abnormalities including new T-wave inversions -denies any chest pain -troponins negative -cardiology consult # acute COPD exacerbation -CXR negative -patient with acute on chronic hypoxic respiratory failure -IV Solu-Medrol -Duonebs q4h while awake -continue supplemental O2. On 2 L O2 at home -azithromycin x3 days # elevated D-dimer 302 -bilaterally anus duplex negative -patient asymptomatic -D-dimer elevation likely secondary to seizure and is covered by Eliquis, PE unlikely -consider additional workup if worsening hypoxia #Hypokalemia -Given 40meq kcl in ed -repeat bmp at 1500 DVT prophylaxis-on Eliquis Full code Patient requires inpatient stay of at least 2 midnights due to acute on chronic hypoxic respiratory failure secondary to COPD exacerbation or seizure as well as atrial fibrillation with RVR requiring diltiazem drip and IV Solu-Medrol and supplemental oxygen support above baseline Procedures Date of Service Date of Service: 04/02/22
[2022-04-02 16:05] LABS: Thyroid Stimulating Hormone 0.28 uIU/mL (0.32-4.0)
[2022-04-02] MEDS: Albuterol/Iprat 2.5/0.5MG 3 ML AMPUL.NEB INHALE ×2 (16:14→20:43)
--- NOTE | 2022-04-02 17:04 | PM.EVENT ---
Event Note Date of Service: 04/02/22 Event Note: This patient is seen and examined with APC. Patient seen and examined patient seems like was on Lamictal for seizure medication and she said she stopped spontaneously on her own and this morning above found to be having thrashin movements she movements and altered mental status afterwards -as brought to the hospital because of that. Has shortness of breath She denies any chest pain or abdominal pain or fever chills Lab imaging, EKG reviewed. Mild leukocytosis, troponin x2 flat,? EKG -no previous EKG available, EKG here shows some T nonspecific-wave inversions in inferior leads. Venous duplex negative CT head negative Physical exam : As per H&P except chest: Air entry slightly diminished at bases, has bilateral wheezing. assessment and plan coordinated in APCs note, Agree with the plan in addition: Continue nebs, steroids, antibiotics for COPD exacerbation Tachycardia and tachypnea possibly related to COPD exacerbation and nebs. Not septic. Initially was a question of AFib also as per ED physician-as per the patient she is already on Eliquis ekg looks nsr Stop Cardizem drip, start her home verapamil.check tsh levels . Cardio evaluation ? Question of seizure: Stopped her medication on her own May need to add back her Lamictal which was says she taking at home Will add neurology evaluation
[2022-04-02] MEDS: Omeprazole 40 MG CAPSULE.DR PO (18:26)
[2022-04-02] MEDS: 0.9 % Sodium Chloride Flush 3 ML SYRINGE IVFLUSH ×2 (18:27→23:57)
[2022-04-02] MEDS: iohexoL 350 MG/ML 100 ML INFUS..BTL IV (19:39)
[2022-04-02] MEDS: VerapamiL HCL 40 MG TABLET 90 MG PO (19:47)
[2022-04-02] MEDS: guaiFENesin 200 MG/10 ML 10 ML LIQUID PO (22:12)
[2022-04-02] MEDS: Apixaban 5 MG TABLET PO (22:13)
--- NOTE | 2022-04-02 22:46 | PC.NURSE ---
Last dose of Verapamil administered late at 19:47-spoke to Hakan, pharmacist who recommended to skip 21:00 dose tonight.
[2022-04-02] MEDS: lamoTRIgine 25 MG TABLET PO (22:51)
[2022-04-03 01:21] VITALS: BP 138/66; PULSE 72; RESP 20; O2SAT 96
[2022-04-03] MEDS: guaiFENesin 200 MG/10 ML 10 ML LIQUID PO ×2 (04:08→11:02)
--- NOTE | 2022-04-03 04:45 | PC.NURSE ---
CARE ASSUMED 23:15..AWAKE..ALERT..ORIENTED X3...REMAINS NSR..NO ECTOPY..O2 2 L/M CANNULA..NO DISTRESS...COUGH SYRUP X1 OVERNIGHT FOR HARSH COUGH WITH EFFECT...OOB TO COMMODE STEADY GAIT TO VOID..DENIES/OFFERS NO COMPLAINTS
[2022-04-03] MEDS: Omeprazole 40 MG CAPSULE.DR PO ×2 (05:49→15:24)
[2022-04-03] MEDS: Acetaminophen 325 MG TABLET 650 MG PO ×2 (05:52→20:10)
[2022-04-03] MEDS: Albuterol/Iprat 2.5/0.5MG 3 ML AMPUL.NEB INHALE ×3 (08:11→15:37)
[2022-04-03 08:12] VITALS: PULSE 81; RESP 20; O2SAT 99
[2022-04-03] MEDS: lamoTRIgine 25 MG TABLET PO ×2 (08:59→20:10)
[2022-04-03] MEDS: Apixaban 5 MG TABLET PO ×2 (08:59→20:10)
[2022-04-03] MEDS: 0.9 % Sodium Chloride Flush 3 ML SYRINGE IVFLUSH ×2 (08:59→15:24)
[2022-04-03] MEDS: methylPREDNISolone Sod Succ 40 MG/ML VIAL IVPUSH ×2 (09:03→18:00)
[2022-04-03] MEDS: Azithromycin 500 MG in 0.9 % Sodium Chloride 250 ML 125 MG IV (09:05)
[2022-04-03 09:43] LABS: Adenovirus PCR Not Detected (Not Detect.); Bordetella pertussis PCR Not Detected (Not Detect.)
[2022-04-03 09:44] LABS: Bordetella parapertussis PCR Not Detected (Not Detect.); Chlamydia pneumoniae PCR Not Detected (Not Detect.); Coronavirus 229E PCR Not Detected (Not Detect.); Coronavirus HKU1 PCR Not Detected (Not Detect.); Coronavirus NL63 PCR Not Detected (Not Detect.); Coronavirus OC43 PCR Not Detected (Not Detect.); Human metapneumovirus PCR Not Detected (Not Detect.); Influenza A PCR Not Detected (Not Detect.); Influenza B PCR Not Detected (Not Detect.); Mycoplasma pneumoniae PCR Not Detected (Not Detect.); Parainfluenza 1 PCR Not Detected (Not Detect.); Parainfluenza 2 PCR Not Detected (Not Detect.); Parainfluenza 3 PCR Not Detected (Not Detect.); Parainfluenza 4 PCR Not Detected (Not Detect.); RSV PCR Not Detected (Not Detect.); Rhino/Enterovirus PCR Not Detected (Not Detect.); SARS-CoV-2 PCR Not Detected (Not Detect.)
[2022-04-03] MEDS: VerapamiL HCL 40 MG TABLET 90 MG PO (11:12)
[2022-04-03 11:34] VITALS: PULSE 78; RESP 20; O2SAT 100
--- NOTE | 2022-04-03 12:09 | PM.CNCAR ---
History of Present Illness History of Present Illness Date of Service: 04/03/22 Requesting physician: Sachin Dubois Chief complaint: Atrial fibrillation Narrative: 67-year-old female who has history of atrial fibrillation on anticoagulation, history of subtle loss of vision in the right eye with recovery, COPD/ emphysema, lung cancer with previous lobectomy and history of seizures. She previously was on lamotrigine for seizures. She was started on Paxil and apparently had a lot of fatigue and tiredness and decided to stop both the medications. It appears he has not taking her seizure medication for few months. she was laying with her and started having seizure-like activity and then became unresponsive. EMS was call and the patient was brought into the emergency department. There is some report that she had atrial fibrillation in the ER and received Cardizem which reverted to sinus rhythm. There is no tracings or EKGs showing atrial fibrillation. One EKG appears irregular but is actually sinus with premature atrial complexes. She has been short of breath and wheezy and is being treated for COPD exacerbation. She is denying any chest discomfort or any significant breathing issues currently. She follows with [facility]. [facility] Past Medical History Medical History (Updated 04/03/22 @ 12:16 by Sumeet Trevino MD) Afib Emphysema/COPD GERD (gastroesophageal reflux disease) HTN (hypertension) Seizure Family History Family History (Updated 04/02/22 @ 14:13 by ALEXYS Solares) Mother Small cell lung cancer Father Stomach cancer Brother Diabetes Social History Social History (Updated 04/02/22 @ 07:17 by Tiny Loyola DO) Patient Tobacco Use Status: Former Tobacco user Smoked in Last 30 Days: No Use of substances other than those prescribed or required for medical reasons: No Advance Directives: No Meds Allergies Allergy/AdvReac Type Severity Reaction Status Date / Time No Known Allergies Allergy Unverified 02/27/20 15:55 Active Medications: Current Medications Acetaminophen (Acetaminophen 325 Mg Tablet) 650 mg PO Q6H PRN PRN Reason: mild pain, headache Last Admin: 04/03/22 05:52 Dose: 650 mg Albuterol/Ipratropium (Albuterol/Iprat 2.5/0.5mg 3 Ml Ampul.Neb) 3 ml INHALE RQ4H WHILE AWAKE SHELBI Last Admin: 04/03/22 11:34 Dose: 3 ml Apixaban (Apixaban 5 Mg Tablet) 5 mg PO BID [facility] Last Admin: 04/03/22 08:59 Dose: 5 mg Guaifenesin (Guaifenesin 200 Mg/10 Ml 10 Ml Liquid) 10 ml PO Q6H PRN PRN Reason: Cough Last Admin: 04/03/22 11:02 Dose: 10 ml Azithromycin 500 mg/ Sodium (Chloride) 250 mls @ 125 mls/hr IV Q24H [facility] Last Infusion: 04/03/22 12:01 Dose: Infused Lamotrigine (Lamotrigine 25 Mg Tablet) 25 mg PO BID [facility] Last Admin: 04/03/22 08:59 Dose: 25 mg Lorazepam (Lorazepam 0.5 Mg Tablet) 0.5 mg PO DAILY PRN PRN Reason: anxiety Methylprednisolone Sodium Succinate (Methylprednisolone Sod Succ 40 Mg/Ml Vial) 40 mg IVPUSH Q12H [facility] Last Admin: 04/03/22 09:03 Dose: 40 mg Midazolam HCl (Midazolam Hcl/Pf 2 Mg/2 Ml Vial) 2 mg IVPUSH Q2H PRN PRN Reason: Seizures Omeprazole (Omeprazole 40 Mg Capsule.Dr) 40 mg PO BID@0630,1630 [facility] Last Admin: 04/03/22 05:49 Dose: 40 mg Ondansetron HCl (Ondansetron Odt 4 Mg Tab.Rapdis) 4 mg TRANSLINGU Q8H PRN PRN Reason: Nausea and Vomiting Pharmacy Consult (Consult Rx Perform Med Rec) 1 each MISCELLANE ONCE PRN PRN Reason: Consult order Sodium Chloride (0.9 % Sodium Chloride Flush 3 Ml Syringe) 3 ml IVFLUSH QSHIFT [facility] Last Admin: 04/03/22 08:59 Dose: 3 ml Verapamil HCl (Verapamil Hcl 40 Mg Tablet) 80 mg PO QID [facility]; Protocol Home Medications Medication Instructions Recorded Confirmed Last Taken Type albuterol sulfate 90 mcg/actuation 2 puff inhalation Q4H PRN 04/02/22 04/02/22 Unknown History aerosol inhaler Shortness Of Breath apixaban 5 mg tablet (Eliquis) 1 tab PO BID 04/02/22 04/02/22 04/01/22 History azithromycin 250 mg tablet 1 tab PO DAILY 04/02/22 04/02/22 04/01/22 History lorazepam 0.5 mg tablet 1 tab PO DAILY PRN anxiety 04/02/22 04/02/22 Unknown History omeprazole 40 mg capsule,delayed 1 cap PO BID@0630,1630 04/02/22 04/02/22 04/01/22 History release prednisone 20 mg tablet 1 tab PO BID 04/02/22 04/02/22 04/01/22 History verapamil 120 mg tablet,extended 1 tab PO BEDTIME 04/02/22 04/02/22 04/01/22 History release verapamil 240 mg tablet,extended 1 tab PO BEDTIME 04/02/22 04/02/22 04/01/22 History release Physical Exam Vital Signs: Vital Signs: Last Vital Signs Temp 97.8 F 04/02/22 19:40 Pulse 78 04/03/22 11:34 Resp 20 04/03/22 11:34 BP 138/66 04/03/22 01:21 Pulse Ox 96 04/03/22 01:21 O2 Del Method 04/02/22 19:40 O2 Flow Rate 2 04/03/22 01:21 Oxygen Flow Rate 2 04/02/22 07:15 BMI result Body Mass Index 25.0 GENERAL APPEARANCE: in no acute distress, pleasant. NECK: no carotid bruit, no jugular venous distention. SKIN: no suspicious lesions, warm and dry. HEART: no murmurs, regular rate and rhythm. LUNGS: Mild ex between wheezes. ABDOMEN: soft, nontender. EXTREMITIES: no edema. PERIPHERAL PULSES: equal. NEUROLOGIC: No gross deficits, AAO X 3 Objective Labs and Meds Result diagrams: 04/02/22 07:40 04/02/22 15:11 Lab results: Laboratory Results - last 24 hr 04/02/22 04/02/22 04/02/22 07:40 11:48 14:48 D-Dimer High Sensitivty 302 Sodium Potassium Chloride Carbon Dioxide Anion Gap BUN Creatinine Estim Creat Clear Calc Estimated GFR Random Glucose Lactic Acid F/U @ 2Hr 1.7 Calcium TSH Urine Color Yellow Urine Appearance Clear Urine pH 6.0 Ur Specific Kirvin 1.015 Urine Protein Trace Urine Glucose (UA) Negative Urine Ketones Negative Urine Blood Negative Urine Nitrite Negative Ur Leukocyte Esterase Trace H Urine RBC 0-2 Urine WBC 6-10 Ur Squamous Epith Cells 6-10 Urine Bacteria Trace Hyaline Casts 0-2 Respiratory Panel Brennan Adenovirus (Rapid PCR) B.pert (TEM-PCR) B.parapertussis DNA PCR C. pneumoniae DNA (PCR) Coronavirus OC43 (PCR) Coronavirus HKU1 (PCR) Coronavirus 229E (PCR) Coronavirus NL63 (PCR) Human Metapneumovir PCR Influenza A (RT-PCR) Influenza B (RT-PCR) M. pneumoniae (PCR) Parainfluenza 1 (PCR) Parainfluenza 2 (PCR) Parainfluenza 3 (PCR) Parainfluenza 4 (PCR) RSV (PCR) Entero/Rhino (PCR) SARS-CoV-2 RNA (RT-PCR) 04/02/22 04/02/22 15:11 16:40 D-Dimer High Sensitivty Sodium 143 Potassium 4.1 D Chloride 106 Carbon Dioxide 25 Anion Gap 16 BUN 14 Creatinine 0.73 Estim Creat Clear Calc 70.0 Estimated GFR > 60 Random Glucose 153 H Lactic Acid F/U @ 2Hr Calcium 8.6 D TSH 0.28 L Urine Color Urine Appearance Urine pH Ur Specific Kirvin Urine Protein Urine Glucose (UA) Urine Ketones Urine Blood Urine Nitrite Ur Leukocyte Esterase Urine RBC Urine WBC Ur Squamous Epith Cells Urine Bacteria Hyaline Casts Respiratory Panel Brennan See Note Adenovirus (Rapid PCR) Not Detected B.pert (TEM-PCR) Not Detected B.parapertussis DNA PCR Not Detected C. pneumoniae DNA (PCR) Not Detected Coronavirus OC43 (PCR) Not Detected Coronavirus HKU1 (PCR) Not Detected Coronavirus 229E (PCR) Not Detected Coronavirus NL63 (PCR) Not Detected Human Metapneumovir PCR Not Detected Influenza A (RT-PCR) Not Detected Influenza B (RT-PCR) Not Detected M. pneumoniae (PCR) Not Detected Parainfluenza 1 (PCR) Not Detected Parainfluenza 2 (PCR) Not Detected Parainfluenza 3 (PCR) Not Detected Parainfluenza 4 (PCR) Not Detected RSV (PCR) Not Detected Entero/Rhino (PCR) Not Detected SARS-CoV-2 RNA (RT-PCR) Not Detected Imaging Radiologist's impression: Impressions Venous Duplex 04/02/22 13:21 IMPRESSION: No evidence for deep venous thrombosis in the visualized veins of the bilateral lower extremities. Head CT 04/02/22 14:35 IMPRESSION: Unremarkable CT scan of the head. No evidence of acute territorial infarct or hemorrhage. No intracranial mass effect or hydrocephalus. Chest CTA 04/02/22 19:41 IMPRESSION: No pulmonary embolus seen. Since the prior study in 2013, there is marked volume loss of the right upper lobe with corresponding hyperinflation of the right lower lobe. Recommend correlation with history of prior surgery. Consider nonemergent pulmonary consultation for further evaluation including bronchoscopy as clinically indicated to exclude a central obstructing abnormality although no mass or lymphadenopathy is seen. VTE: negative Assessment and Plan (1) Acute and chronic respiratory failure with hypoxia: Status: Acute (2) Seizure: Status: Acute (3) Afib: Status: Acute Plan Pleasant 67-year-old female who is presenting with seizure. She was previously on Lamotrigine but stopped taking it few months ago. At the same time has COPD exacerbation is being treated for that. There is some report that she had atrial fibrillation in the ER. She has known history of AFib has been on Eliquis. On discussing with her she said that she was diagnosed with AFib after her 1st seizure and was started on anticoagulation. She also had a loop recorder placed and has been interrogated since then and has not shown any significant episodes of atrial fibrillation. So far I do not have any obvious evidence for AFib because there are no rhythm strips in the ER that were recorded. EKGs in the system are sinus rhythm with premature atrial complexes. I have explained to her that she should discuss this with her primary food porter and I feel stopping anticoagulation is not the best move right now. She also had sudden vision loss in her right eye which could be related to atrial fibrillation. She does not have any carotid bruits but foot benefit from having carotid ultrasound as outpatient. She has anterior T-wave inversions the EKG. These are not evolving. She does not have any chest pain or significant biomarker rise. Sometimes these changes are related to pulmonary hypertension and RV dysfunction. She does not have pulmonary embolism. Recommend doing echocardiography tomorrow. Thank you for allowing me to participate in the care of your patient. Please feel free to contact me if you have any questions. Procedures Date of Service Date of Service: 04/03/22
--- NOTE | 2022-04-03 12:20 | HO.PM.IMPN ---
Subjective Subjective Date of Service: 04/03/22 Interval History: No significant nursing events overnight. Patient with improvement in dyspnea but continues to have bilateral expiratory wheezes. Is currently normal sinus rhythm Review of Systems All 13 review of systems are negative except as noted in HPI Physical Exam Vital Signs: Vital Signs: Last Vital Signs Temp 97.8 F 04/02/22 19:40 Pulse 78 04/03/22 11:34 Resp 20 04/03/22 11:34 BP 138/66 04/03/22 01:21 Pulse Ox 96 04/03/22 01:21 O2 Del Method 04/02/22 19:40 O2 Flow Rate 2 04/03/22 01:21 Oxygen Flow Rate 2 04/02/22 07:15 BMI result Body Mass Index 25.0 Middle-aged male lying in bed in no distress Neck supple, no JVD Regular rate and rhythm, S1-S2 heard Bilateral expiratory wheezing Abdomen soft nontender, no guarding, no rigidity Patient is awake, alert and oriented to self, place, time and person ; no focal motor deficit Psych: Normal mood No pedal edema Objective Data Active Medications Acetaminophen (Acetaminophen 325 Mg Tablet) 650 mg PO Q6H PRN PRN Reason: mild pain, headache Last Admin: 04/03/22 05:52 Dose: 650 mg Documented By: NICOLE Albuterol/Ipratropium (Albuterol/Iprat 2.5/0.5mg 3 Ml Ampul.Neb) 3 ml INHALE RQ4H WHILE AWAKE [facility] Last Admin: 04/03/22 11:34 Dose: 3 ml Documented By: JAZMINE Apixaban (Apixaban 5 Mg Tablet) 5 mg PO BID [facility] Last Admin: 04/03/22 08:59 Dose: 5 mg Documented By: MARIE Guaifenesin (Guaifenesin 200 Mg/10 Ml 10 Ml Liquid) 10 ml PO Q6H PRN PRN Reason: Cough Last Admin: 04/03/22 11:02 Dose: 10 ml Documented By: NNAMDI-SOFFA Azithromycin 500 mg/ Sodium (Chloride) 250 mls @ 125 mls/hr IV Q24H [facility] Last Infusion: 04/03/22 12:01 Dose: 0 mls/hr Documented By: MARIE Lamotrigine (Lamotrigine 25 Mg Tablet) 25 mg PO BID [facility] Last Admin: 04/03/22 08:59 Dose: 25 mg Documented By: MARIE Lorazepam (Lorazepam 0.5 Mg Tablet) 0.5 mg PO DAILY PRN PRN Reason: anxiety Methylprednisolone Sodium Succinate (Methylprednisolone Sod Succ 40 Mg/Ml Vial) 40 mg IVPUSH Q12H [facility] Last Admin: 04/03/22 09:03 Dose: 40 mg Documented By: MARIE Midazolam HCl (Midazolam Hcl/Pf 2 Mg/2 Ml Vial) 2 mg IVPUSH Q2H PRN PRN Reason: Seizures Omeprazole (Omeprazole 40 Mg Capsule.Dr) 40 mg PO BID@0630,1630 [facility] Last Admin: 04/03/22 05:49 Dose: 40 mg Documented By: NICOLE Ondansetron HCl (Ondansetron Odt 4 Mg Tab.Rapdis) 4 mg TRANSLINGU Q8H PRN PRN Reason: Nausea and Vomiting Pharmacy Consult (Consult Rx Perform Med Rec) 1 each MISCELLANE ONCE PRN PRN Reason: Consult order Sodium Chloride (0.9 % Sodium Chloride Flush 3 Ml Syringe) 3 ml IVFLUSH QSHIFT [facility] Last Admin: 04/03/22 08:59 Dose: 3 ml Documented By: MARIE Verapamil HCl (Verapamil Hcl 40 Mg Tablet) 80 mg PO QID [facility]; Protocol Labs CBC & Chem 7: 04/02/22 07:40 04/02/22 15:11 Labs: Laboratory Results - last 24 hr 04/02/22 04/02/22 04/02/22 07:40 11:48 14:48 D-Dimer High Sensitivty 302 Anion Gap Estim Creat Clear Calc Estimated GFR Random Glucose Lactic Acid F/U @ 2Hr 1.7 Calcium TSH Urine Color Yellow Urine Appearance Clear Urine pH 6.0 Ur Specific [place]ascade 1.015 Urine Protein Trace Urine Glucose (UA) Negative Urine Ketones Negative Urine Blood Negative Urine Nitrite Negative Ur Leukocyte Esterase Trace H Urine RBC 0-2 Urine WBC 6-10 Ur Squamous Epith Cells 6-10 Urine Bacteria Trace Hyaline Casts 0-2 Respiratory Panel Brennan Adenovirus (Rapid PCR) B.pert (TEM-PCR) B.parapertussis DNA PCR C. pneumoniae DNA (PCR) Coronavirus OC43 (PCR) Coronavirus HKU1 (PCR) Coronavirus 229E (PCR) Coronavirus NL63 (PCR) Human Metapneumovir PCR Influenza A (RT-PCR) Influenza B (RT-PCR) M. pneumoniae (PCR) Parainfluenza 1 (PCR) Parainfluenza 2 (PCR) Parainfluenza 3 (PCR) Parainfluenza 4 (PCR) RSV (PCR) Entero/Rhino (PCR) SARS-CoV-2 RNA (RT-PCR) 04/02/22 04/02/22 15:11 16:40 D-Dimer High Sensitivty Anion Gap 16 Estim Creat Clear Calc 70.0 Estimated GFR > 60 Random Glucose 153 H Lactic Acid F/U @ 2Hr Calcium 8.6 D TSH 0.28 L Urine Color Urine Appearance Urine pH Ur Specific Cascade Urine Protein Urine Glucose (UA) Urine Ketones Urine Blood Urine Nitrite Ur Leukocyte Esterase Urine RBC Urine WBC Ur Squamous Epith Cells Urine Bacteria Hyaline Casts Respiratory Panel Brennan See Note Adenovirus (Rapid PCR) Not Detected B.pert (TEM-PCR) Not Detected B.parapertussis DNA PCR Not Detected C. pneumoniae DNA (PCR) Not Detected Coronavirus OC43 (PCR) Not Detected Coronavirus HKU1 (PCR) Not Detected Coronavirus 229E (PCR) Not Detected Coronavirus NL63 (PCR) Not Detected Human Metapneumovir PCR Not Detected Influenza A (RT-PCR) Not Detected Influenza B (RT-PCR) Not Detected M. pneumoniae (PCR) Not Detected Parainfluenza 1 (PCR) Not Detected Parainfluenza 2 (PCR) Not Detected Parainfluenza 3 (PCR) Not Detected Parainfluenza 4 (PCR) Not Detected RSV (PCR) Not Detected Entero/Rhino (PCR) Not Detected SARS-CoV-2 RNA (RT-PCR) Not Detected Microbiology Microbiology Results: Microbiology 04/02/22 07:40 Blood Culture - Preliminary Blood - Venous No growth after 24 hours. 04/02/22 07:40 Blood Culture - Preliminary Blood - Venous No growth after 24 hours. Assessment and Plan (1) Acute exacerbation of chronic obstructive pulmonary disease: Status: Acute (2) Atrial fibrillation with rapid ventricular response: Status: Acute (3) Seizure: Status: Acute Plan 66-year-old female with history of emphysema with chronic respiratory failure on 2 L home oxygen at baseline, atrial fibrillation anticoagulated with Eliquis, history of non-small cell lung cancer s/p right lobectomy, former smoker, and history of seizures previously on Lamictal which patient self discontinued admitted for seizures with acute on chronic hypoxic respiratory failure and afib with rvr. #Seizure, breakthrough -as patient self discontinued lamotrigine. Restarted. EEG pending -head CT without acute findings # Acute on chronic hypoxic respiratory failure secondary to COPD exacerbation -on 2 L home O2 prn.? EMS found patient hypoxic with oximetry in the 60s. -currently maintaining normal oxygen saturation on room air but continues to have wheezing -continue steroids and DuoNebs. Also on azithromycin # Atrial fibrillation with RVR -received IV diltiazem in the ER. Currently normal sinus rhythm -Low TSH. Obtain T4 -continue home verapamil and eliquis # abnormal EKG -sinus rhythm with ST/T-wave abnormalities including new T-wave inversions -denies any chest pain -troponins negative -cardiology consulted who recommends transthoracic echocardiogram for ?pulm HTN vs ?RV issues DVT prophylaxis-on Eliquis Full code Reason for continued hospitalization: Awaiting EEG and echocardiogram in this high-risk patient. Continue management of COPD exacerbation Quality Stroke Does the patient have a stroke diagnosis?: No VTE Prior VTE?: No VTE Risk Level:: Medical - moderate - high VTE Device Contraindication: Treatment Not Indicated VTE Drug Contraindication: N/A - Med Ordered
--- NOTE | 2022-04-03 12:27 | MHC.CM.PN ---
IMM 04/03/22 Female 66 DX SZ AFIB w RVR COPD exacerbation. She lives with family. She uses a cane; but states that she is independent with ADLS. She has been vaccinated 1x. DP home self care. Patients spouse will provide transportation home.
[2022-04-03 13:54] LABS: Free T4 (Free Thyroxine) 1.32 ng/dL (0.71-1.85)
[2022-04-03] MEDS: VerapamiL HCL 40 MG TABLET 80 MG PO ×3 (15:23→20:10)
[2022-04-03 15:31] VITALS: BP 152/74; PULSE 86; RESP 17; TEMP 36.6; O2SAT 98
[2022-04-03 15:37] VITALS: PULSE 86; RESP 18; O2SAT 98
--- NOTE | 2022-04-03 16:50 | PC.NURSE ---
Around 1500 pt experienced a blank stare seizure per daughter at bedside for approx 1min. During post-ictal phase, pt was confused, not able to recall event but was easily reoriented. MD and neurologist were informed. During this event pt desatted to low 80s, 2L n/c placed w/ + effect. Safety, fall and seizures precautions maintained, call paige within reach.
[2022-04-03 21:43] VITALS: BP 144/71; PULSE 79; RESP 18; O2SAT 97
[2022-04-04] VITALS (8 sets, daily range): BP systolic 112–177; BP diastolic 71–89; PULSE 64–93; RESP 12–25; TEMP 36.6–36.8; O2SAT 94–100
--- NOTE | 2022-04-04 | EEG_ITS ---
This is a 16-channel EEG with an EKG lead. The patient is reported awake during the tracing. Background EEG rhythm is 7 to 8 hertz low to medium amplitude with no obvious asymmetry or paroxysmal tendency. Photic stimulation does not produce any significant driving. Hyperventilation is not performed. Cardiac lead does not reveal any significant abnormality. No paroxysmal tendency asymmetry or focal activity is noted. IMPRESSION: Mild generalized slowing with no evidence of seizure disorder. MD JAMAICA Rosa/DAYN / [phone]
[2022-04-04] MEDS: 0.9 % Sodium Chloride Flush 3 ML SYRINGE IVFLUSH ×3 (02:20→17:05)
[2022-04-04] MEDS: traMADoL HCL 50 MG TABLET PO (03:12)
[2022-04-04] MEDS: Omeprazole 40 MG CAPSULE.DR PO ×2 (03:13→17:02)
[2022-04-04 04:47] LABS: Basophils Percent Auto 0.1 % (0-2); Hematocrit 36.3 % (37.0-47.0); Imm Gran Abs Auto 0.19 X10*3/uL (0.00-0.03); Imm Gran Pct Auto 1.3 % (0.0-0.4); Lymphocytes Absolute Auto 0.7 X10*3/uL (1.2-4.9); Lymphocytes Percent Auto 4.5 % (20-40); MANUAL DIFF FLAG SCAN; Mean Corpuscular HGB Conc 33.1 g/dl (31.0-35.0); Mean Corpuscular Hemoglobin 29.6 pg (27.0-33.0); Mean Corpuscular Volume 89.6 fL (80.0-98.0); Mean Platelet Volume 9.3 fL (9.4-12.3); Monocytes Absolute Auto 0.5 X10*3/uL (0.1-1.2); Monocytes Percent Auto 3.3 % (2-11); Neutrophils Absolute Auto 13.2 x10*3/uL (2.0-8.3); Neutrophils Percent Auto 90.8 % (45-73); Platelet Count 244 X10*3/uL (160-400); Red Blood Count 4.05 X10*6/uL (4.20-5.50); Red Cell Distribution Width 13.2 % (11.0-16.0); SCAN SMEAR FLAG 1; White Blood Count 14.6 X10*3/uL (4.8-10.8)
[2022-04-04 04:49] LABS: SLIDE REVIEW VERIFIED
[2022-04-04 05:05] LABS: Anion Gap 16 (12-20); Blood Urea Nitrogen 17 mg/dL (9-16); Calcium 9.2 mg/dL (8.4-10.2); Carbon Dioxide 27 mmol/L (22-29); Chloride 103 mmol/L (96-108); Creatinine Clr Calc Pharmacy 67.2; Estimated Glomerular Filt Rate > 60; Glucose Random 130 mg/dL (60-115); Potassium 4.1 mmol/L (3.3-5.1); Sodium 142 mmol/L (135-145)
--- NOTE | 2022-04-04 07:00 | CA_ITS ---
Transthoracic Echocardiogram Patient (Last, First, Middle): Zaynab Mistry E Gender: Female Date of : 1955 Age: 67 Procedure Date: 04/04/2022 Procedure Type: Transthoracic Echocardiogram Location: ER Height: 167.64 cm Weight: 70.31 kg BSA: 1.79 m2 Heart Rate: bpm BP: 112 / 76 mmHg Accounts Receivable Accountant: ESPERANZA Referring MD: Sachin Dubois MD Shovel Loader Operator: Masoud Kimball MD Symptoms: Pulm HTN? Study Quality: Technically Difficult/contrast ECG Rhythm: Sinus Conclusions: - 1. Normal LV systolic function with impaired relaxation filling pattern 2. Normal cardiac valvular Doppler 3. Normal RV systolic pressure 4. No gross pericardial effusion Findings Procedure Information Contrast agent, definity, is being given per protocol without apparent complications. Left Ventricle Normal left ventricular size, thickness, and systolic function. The visually estimated ejection fraction is between 65-70%. There is no evidence of regional wall motion abnormalities. Spectral Doppler is indicative of an impaired relaxation filling pattern. E/E prime ratio is between 8 and 15 consistent with indeterminate filling pressures. Right Ventricle Normal right ventricular cavity size and systolic function. Atria The left atrium is normal in size. Interatrial shunt cannot be excluded. The right atrium was not well visualized. Aortic Valve The aortic valve was not well visualized. There is no aortic valve stenosis. There is no aortic valve regurgitation. Mitral Valve Likely normal mitral valve structure and function. There is trace mitral valve regurgitation. There is no mitral valve stenosis. Pulmonic Valve The pulmonic valve was not well visualized. Tricuspid Valve Likely normal tricuspid valve structure and function. The right ventricular systolic pressure is 33 mmHg. Mildly elevated right atrial pressure. There is no evidence of pulmonary hypertension. Great Vessels All visible segments of the aorta are normal in size. The pulmonary artery was not well visualized. Venous The inferior vena cava is mildly dilated and collapses less than 50% with inspiration. Pericardium/Pleural There is no evidence of pericardial effusion. Prior Study Comparison No previous study in the last 5 years for comparison Measurements 2D Linear Measurements IVSd: 0.94 0.6-0.9/0.6-1.0 cm LVIDd: 3.79 3.9-5.3/4.2-5.9 cm LVIDd Index: 2.12 2.4-3.2/2.2-3.1 cm/m2 LVIDs: 2.57 2.0-3.6 cm LVPWd: 0.81 0.7-1.1 cm LA Diam: 3.10 2.7-3.8/3.0-4.0 cm LAIDs Index: 1.73 1.5-2.3 cm/m2 LV Mass: 119.64 67-162/88-224 g LV Mass Index: 66.84 43-95/49-115 g/m2 LVOT Diam: 1.80 3.0+(-)1.3 cm 2D Systolic Function EF 4C: 66.20 >55% EF 2C: 68.20 >55% EF BiP: 68.00 >55% Mitral Valve MV Pk E: 0.96 MV PK A: 0.87 MV Decel Time: 222.00 E/A: 1.10 E'Lateral: 9.68 E'Medial: 8.05 E/E' Med: 11.90 E/E' Lat: 9.90 PHT: 65.00 MVA PHT: 3.38 Decel [place]: 4.32 Aortic Valve AoV Pk Rivas: 1.34 AoV Mn Rivas: 1.01 AoV VTI: 0.34 AoV Pk Grad: 7.00 Aov Mn Grad: 4.00 HERMINIO Cont.VTI: 1.90 LVOT LVOT Pk Rivas: 1.10 LVOT Mn Rivas: 0.73 LVOT VTI: 0.25 LVOT Pk Grad: 5.00 LVOT Mn Grad: 2.00 LVOT Diam: 1.80 LVOT Area: 2.54 Diastolic Function MV Pk E: 0.96 MV Pk A: 0.87 E/A: 1.10 E'Medial: 8.05 E/E' Med: 11.90 E' Laterial: 9.68 E/E' Lat: 9.90 Right Ventricle TAPSE (mm): 23.00 TVS' Rivas: 14.80 Tricuspid Valve TR Pk Rivas: 2.49 TR Pk Grad: 25.00 RA Press: 8.00 RVSP: 33.00 Great Vessels Aorta Sinus of Valsalva: 3.19 2.0-3.5 cm Updated in Other Vendor System with Status of Final Masoud Kimball MD electronically signed on 04/04/2022 3:40:14 PM with status of Final
[2022-04-04] MEDS: Albuterol/Iprat 2.5/0.5MG 3 ML AMPUL.NEB INHALE ×3 (07:44→15:13)
[2022-04-04] MEDS: Azithromycin 500 MG in 0.9 % Sodium Chloride 250 ML 125 MG IV (09:15)
[2022-04-04] MEDS: methylPREDNISolone Sod Succ 40 MG/ML VIAL IVPUSH (09:15)
[2022-04-04] MEDS: VerapamiL HCL 40 MG TABLET 80 MG PO ×2 (09:16→13:23)
[2022-04-04] MEDS: lamoTRIgine 25 MG TABLET PO (09:16)
[2022-04-04] MEDS: Apixaban 5 MG TABLET PO (09:16)
--- NOTE | 2022-04-04 09:19 | PM.PNCARD ---
Subjective Subjective Date of Service: 04/04/22 Principal diagnosis: Paroxysmal atrial fibrillation Interval history: Patient overnight has remained in sinus rhythm. Monitor shows occasional PACs. No cardiac symptoms. Complains of chest pain with deep breathing and he has wheezing extensively in the right lung. EKG shows some T-wave inversion in anterior leads. Troponins are flat. Review of Systems Constitutional: Reports no additional constitutional complaints Cardiovascular: Reports no additional cardiovascular complaints Respiratory: Reports pain on inspiration and Reports wheezing Gastrointestinal: Reports no additional gastrointestinal complaints Musculoskeletal: Reports no additional musculoskeletal complaints Reports system reviewed and no additional complaints, except as documented Endocrine: Reports no additional endocrine complaints Allergic/Immunologic: Reports wheezing Physical Exam Vital Signs: Last Vital Signs Temp 98.2 F 04/04/22 08:35 Pulse 93 04/04/22 08:35 Resp 24 H 04/04/22 08:35 BP 158/89 H 04/04/22 08:35 Pulse Ox 96 04/04/22 08:35 O2 Del Method 04/04/22 08:35 O2 Flow Rate 2 04/03/22 21:43 Oxygen Flow Rate 2 04/02/22 07:15 BMI result Body Mass Index 25.0 Const General: cooperative, comfortable, no acute distress, alert and awake Nutritional Appearance: average body habitus Orientation/consciousness: patient oriented x3 Neck Neck: Yes trachea midline, Yes supple and Yes no JVD Resp Effort & Inspection: normal respiratory effort Auscultation: wheezes expiratory wheezes, right lower and right upper Cardio Jugular venous distension: no JVD Palpation: normal PMI Rate: regular rate Rhythm: regular rhythm Heart sounds: S1 normal heart sound present, S2 normal heart sound present, no click, no gallops, no murmurs and no rubs Neuro General: patient oriented x3 and no focal motor deficits Extrem General: Yes no clubbing, cyanosis or edema Objective Labs and Meds Result diagrams: 04/04/22 04:24 04/04/22 04:24 Lab results: Laboratory Results - last 24 hr 04/02/22 04/03/22 04/04/22 16:40 12:54 04:24 WBC 14.6 H RBC 4.05 L Hgb 12.0 Hct 36.3 L MCV 89.6 MCH 29.6 MCHC 33.1 RDW 13.2 Plt Count 244 MPV 9.3 L Immature Gran % (Auto) 1.3 H Neut % (Auto) 90.8 H Lymph % (Auto) 4.5 L [place] % (Auto) 3.3 Eos % (Auto) 0.0 Baso % (Auto) 0.1 Lymph # (Auto) 0.7 L [place] # (Auto) 0.5 Eos # (Auto) 0.0 Baso # (Auto) 0.0 Abs Immat Gran (auto) 0.19 H Absolute Neuts (auto) 13.2 H Absolute Nucleated RBC 0.000 Nucleated RBC % (auto) 0.0 Smear Tech's Comments VERIFIED Sodium Potassium Chloride Carbon Dioxide Anion Gap BUN Creatinine Estim Creat Clear Calc Estimated GFR Random Glucose Calcium Free T4 1.32 Respiratory Panel Brennan See Note Adenovirus (Rapid PCR) Not Detected B.pert (TEM-PCR) Not Detected B.parapertussis DNA PCR Not Detected C. pneumoniae DNA (PCR) Not Detected Coronavirus OC43 (PCR) Not Detected Coronavirus HKU1 (PCR) Not Detected Coronavirus 229E (PCR) Not Detected Coronavirus NL63 (PCR) Not Detected Human Metapneumovir PCR Not Detected Influenza A (RT-PCR) Not Detected Influenza B (RT-PCR) Not Detected M. pneumoniae (PCR) Not Detected Parainfluenza 1 (PCR) Not Detected Parainfluenza 2 (PCR) Not Detected Parainfluenza 3 (PCR) Not Detected Parainfluenza 4 (PCR) Not Detected RSV (PCR) Not Detected Entero/Rhino (PCR) Not Detected SARS-CoV-2 RNA (RT-PCR) Not Detected 04/04/22 04:24 WBC RBC Hgb Hct MCV MCH MCHC RDW Plt Count MPV Immature Gran % (Auto) Neut % (Auto) Lymph % (Auto) [place] % (Auto) Eos % (Auto) Baso % (Auto) Lymph # (Auto) Gilliam # (Auto) Eos # (Auto) Baso # (Auto) Abs Immat Gran (auto) Absolute Neuts (auto) Absolute Nucleated RBC Nucleated RBC % (auto) Smear Tech's Comments Sodium 142 Potassium 4.1 Chloride 103 Carbon Dioxide 27 Anion Gap 16 BUN 17 H Creatinine 0.75 Estim Creat Clear Calc 67.2 Estimated GFR > 60 Random Glucose 130 H Calcium 9.2 D Free T4 Respiratory Panel Brennan Adenovirus (Rapid PCR) B.pert (TEM-PCR) B.parapertussis DNA PCR C. pneumoniae DNA (PCR) Coronavirus OC43 (PCR) Coronavirus HKU1 (PCR) Coronavirus 229E (PCR) Coronavirus NL63 (PCR) Human Metapneumovir PCR Influenza A (RT-PCR) Influenza B (RT-PCR) M. pneumoniae (PCR) Parainfluenza 1 (PCR) Parainfluenza 2 (PCR) Parainfluenza 3 (PCR) Parainfluenza 4 (PCR) RSV (PCR) Entero/Rhino (PCR) SARS-CoV-2 RNA (RT-PCR) Progress Note: A&P Assessment and plan (1) Paroxysmal atrial fibrillation: Status: Acute Assessment and Plan: Paroxysmal atrial fibrillation most likely triggered by acute medical event with seizures with stress hormone release. Currently remaining sinus rhythm with PACs. Continue verapamil therapy. Continue full oral anticoagulation with Eliquis. 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 Consider addition of angiotensin receptor anna/BLAIR inhibitors. (2) Abnormal EKG: Status: Acute Assessment and Plan: Mildly abnormal EKG with anterior T-wave changes could be stress-induced. Could be due to RV strain as well. Will obtain echocardiogram to assess for the same. If there are no significant RV strain and or pulmonary hypertension or suggestion of stress-induced cardiomyopathy outpatient stress testing should be performed to evaluate for coronary artery disease. There is no evidence of acute coronary syndrome at this point in time. If echocardiogram shows is reasonable within normal limits, can be discharged home from cardiac perspective. Continue to manage her acute bronchospastic airway disease. Will sign of the case at this point in time. Thank you for allowing me to partake in the care Time Spent With Patient Time: Total time spent is greater than 50% in coordination of care (as documented) at patient's floor/unit and/or counseling patient: Progress Note: Quality Stroke Does the patient have a stroke diagnosis?: No Procedures Date of Service Date of Service: 04/04/22
[2022-04-04] MEDS: hydroCHLOROthiazide 12.5 MG TABLET PO (10:48)
[2022-04-04] MEDS: traMADoL HCL 50 MG TABLET 25 MG PO (10:48)
[2022-04-04] MEDS: lamoTRIgine 100 MG TABLET PO (13:23)
[2022-04-04] MEDS: VerapamiL HCL 80 MG TABLET PO (17:02)
--- NOTE | 2022-04-04 17:18 | PM.DS ---
DS: Providers Provider Date of Service: 04/04/22 Date of admission: 04/02/22 13:45 Primary care physician: iGovanna Garcia NP Consults: 04/02/22 14:02 Consult to Cardiology Routine Consulting Provider: Sumeet Trevino Reason for consultation: afib with rvr, st abnormality on ekg normal trop 04/02/22 14:16 Consult to Neurology Routine Consulting Provider: [facility] Reason for consultation: seizure DS: Diagnosis Discharge Diagnosis (1) Paroxysmal atrial fibrillation: Status: Acute (2) Abnormal EKG: Status: Acute (3) Seizure: Status: Acute (4) Atrial fibrillation with rapid ventricular response: Status: Acute (5) Acute hypokalemia: Status: Acute (6) Acute and chronic respiratory failure with hypoxia: Status: Acute (7) Upper respiratory infection: Status: Acute (8) Acute exacerbation of chronic obstructive pulmonary disease: Status: Acute (9) Acidosis, lactic: Status: Acute DS: Summary Hospital Course Hospital Course: 66-year-old female with history of emphysema with chronic respiratory failure on 2 L home oxygen at baseline, atrial fibrillation anticoagulated with Eliquis, history of non-small cell lung cancer s/p right lobectomy, former smoker, and history of seizures previously on Lamictal which patient self discontinued presented to the ED this morning via EMS after her found her thrashing and altered.? Upon arrival, EMS found the patient combative and placed her in 4 point restraints.? She was hypoxic in the 60s and lost consciousness.? She improved greatly with the administration of supplemental O2.? On arrival patient was tachycardic to 115, tachypneic to 26 with oximetry of 92% on room air.? She was replaced on 2 L O2.? CXR was negative.? EKG showed sinus tachycardia, rate [address]/T-wave abnormality and PVCs.? Troponins negative.? WBC 11.2.? D-dimer 302.? Venous duplex bilaterally negative.? Initial lactic acid 2.6, repeat lactic acid 1.7.? BNP 87.? She was noted to be in AFib with RVR on teletypesetter monitor given 5 mg diltiazem push without improvement and started on Cardizem drip.? Patient to be admitted for seizure, COPD exacerbation, and AFib with RVR. Currently pt reports feeling fatigued. Does endorse productive cough and wheezing. Hospital course: Patient came to the hospital because of possible breakthrough seizure, also found to have acute hypoxemic respiratory failure secondary to COPD exacerbation started on steroids, nebs, antibiotics seems to be improving, patient was seen by Neurology for seizure: Recommended to start lamotrigine 100 b.i.d. echo seems fine and EEG-will update the EEg results to patient when comes back. Patient is currently asymptomatic,in addition started on lamotrigine discussed with Neurology EEG can be followed outpatient. History of art. fibrillation possible PAF: Seen by cardio EKG changes was thought to be stress related, echo was done seems fine patient is to follow up outpatient with her bacteriology professor for further management. Hypertension: Blood pressure is slightly suboptimal , added hydrochlorothiazide to current blood pressure medication regimen. Monitor blood pressure at home further management outpatient . Above management discussed with the patient in detail length she understand and in agreement with the above plan, time spent 50 minutes and 50% time spent on counseling. Significant findings: As above. Procedures performed: None. Treatment and response: As above. Complications: None. Time Spent with Patient Time attestation: Total time spent providing and/or coordinating discharge services: Discharge coordination time: Greater than 30 minutes Quality: Safe Use of Opioids Does Pt have an Active Cancer Diagnosis on the Problem List?: No Quality: Stroke Does the patient have a stroke diagnosis?: No Physical Exam Vital Signs: Vital Signs: Last Vital Signs Temp 97.9 F 04/04/22 15:40 Pulse 88 04/04/22 15:40 Resp 12 04/04/22 15:40 BP 165/71 H 04/04/22 15:40 Pulse Ox 96 04/04/22 15:40 O2 Del Method 04/04/22 15:40 O2 Flow Rate 2 04/03/22 21:43 Oxygen Flow Rate 2 04/02/22 07:15 BMI result Body Mass Index 25.0 Appearance: Alert.? Oriented X3.? not in distress.? Eyes: Pupils equal, round and reactive to light.? Sclera nonicteric.? ENT: Pharynx normal.? Moist mucous membranes. cvs: rrr, [id number] . res: clear to auscultation ,no rhonchii or wheezing abd: no rebound or guarding ,nt, bs present. ext pulses present , no cyanosis . neuro: axo3 , nonfocal. DS: Data Data Completed and Pending Labs on day of discharge: Laboratory Results - last 24 hr 04/04/22 04/04/22 04:24 04:24 WBC 14.6 H RBC 4.05 L Hgb 12.0 Hct 36.3 L MCV 89.6 MCH 29.6 MCHC 33.1 RDW 13.2 Plt Count 244 MPV 9.3 L Immature Gran % (Auto) 1.3 H Neut % (Auto) 90.8 H Lymph % (Auto) 4.5 L [place] % (Auto) 3.3 Eos % (Auto) 0.0 Baso % (Auto) 0.1 Lymph # (Auto) 0.7 L [place] # (Auto) 0.5 Eos # (Auto) 0.0 Baso # (Auto) 0.0 Abs Immat Gran (auto) 0.19 H Absolute Neuts (auto) 13.2 H Absolute Nucleated RBC 0.000 Nucleated RBC % (auto) 0.0 Smear Tech's Comments VERIFIED Sodium 142 Potassium 4.1 Chloride 103 Carbon Dioxide 27 Anion Gap 16 BUN 17 H Creatinine 0.75 Estim Creat Clear Calc 67.2 Estimated GFR > 60 Random Glucose 130 H Calcium 9.2 D Preliminary micro results at discharge 04/02/22 07:40 Blood Culture - Preliminary Blood - Venous No growth after 48 hours. 04/02/22 07:40 Blood Culture - Preliminary Blood - Venous No growth after [address] scan - chest: Radiologist's impression: ITS Impressions Chest X-Ray 04/02/22 07:50 IMPRESSION: No acute cardiopulmonary process. Venous Duplex 04/02/22 13:21 IMPRESSION: No evidence for deep venous thrombosis in the visualized veins of the bilateral lower extremities. Head CT 04/02/22 14:35 IMPRESSION: Unremarkable CT scan of the head. No evidence of acute territorial infarct or hemorrhage. No intracranial mass effect or hydrocephalus. Chest CTA 04/02/22 19:41 IMPRESSION: No pulmonary embolus seen. Since the prior study in 2013, there is marked volume loss of the right upper lobe with corresponding hyperinflation of the right lower lobe. Recommend correlation with history of prior surgery. Consider nonemergent pulmonary consultation for further evaluation including bronchoscopy as clinically indicated to exclude a central obstructing abnormality although no mass or lymphadenopathy is seen. VTE: negative echo: Conclusions: - 1. Normal LV systolic function with impaired relaxation filling pattern? 2. Normal cardiac valvular Doppler ? 3. Normal RV systolic pressure ? 4. No gross pericardial effusion ? Discharge Plan Discharge Anticipated Discharge Date/Time: 04/04/22 12:53 Patient Disposition: Home, Self-Care Discharge Diagnosis: Acute hypoxemic respiratory failure secondary to COPD exacerbation, AFib, seizure breakthrough. Referrals: Giovanna Garcia NP [Primary Care Provider] - 1 Week Discharge Medications: New lamotrigine 100 mg Tablet 100 mg PO BID Qty: 60 0RF hydrochlorothiazide 12.5 mg Tablet 12.5 mg PO DAILY Qty: 30 0RF Protocol: Hold for SBP< HOLD for SBP < : 90 prednisone 20 mg tablet 40 mg PO DAILY Qty: 6 0RF Continued verapamil 120 mg tablet extended release 1 tab PO BEDTIME Rx Instructions: TDD = 360 MG azithromycin 250 mg tablet 1 tab PO DAILY prednisone 20 mg tablet 1 tab PO BID Rx Instructions: last day of course on 04/02/22 omeprazole 40 mg capsule,delayed release(DR/EC) 1 cap PO BID@0630,1630 lorazepam 0.5 mg tablet 1 tab PO DAILY PRN (Reason: anxiety) verapamil 240 mg tablet extended release 1 tab PO BEDTIME Rx Instructions: TDD = 360 MG albuterol sulfate 90 mcg/actuation HFA aerosol inhaler 2 puff inhalation Q4H PRN (Reason: Shortness Of Breath) Eliquis 5 mg tablet 1 tab PO BID Discharge Orders: Discharge Order (Routine); Ordered 04/04/22 Ordered By: Ra Woodson Diet: Advance to usual diet Activity on Discharge: As tolerated Stand Alone Forms: Patient Portal Discharge page Care Plan Goals: Patient came to the hospital because of possible breakthrough seizure, also found to have acute hypoxemic respiratory failure secondary to COPD exacerbation started on steroids, nebs, antibiotics seems to be improving, patient was seen by Neurology for seizure: Recommended to start lamotrigine 100 b.i.d.. echo seems fine and EEG-will update the EEg results to patient when comes back. Health Concerns: As above. Strongly advised to continue her seizure medications. Follow-up with Cardiology out patiently own bacteriology professor.. Plan of Treatment: As above. Assessment: As above.
[2022-04-05 06:13] LABS: Triiodothyronine T3 Free 2.5 pg/mL (2.3-4.2)
== END 2022-04-04 18:08 | disposition home or self-care (01) | DRG 100 ==
LOC: HO.ED 08:23 → HO.EDOVER 13:50 → HO.IMC 04-04 14:19 → HO.EDOVER 04-04 14:24
PROVIDERS: Student in an Organized Health Care Education/Training Program; Admitting Provider Physician Assistant; Emergency Provider Emergency Medicine; PCP Nurse Practitioner Family; Visit Provider Internal Medicine
DX: G40.909 Epilepsy, unspecified, not intractable, without status epilepticus (principal); J96.21 Acute and chronic respiratory failure with hypoxia; E87.20 Acidosis, unspecified; T42.6X6A Underdosing of other antiepileptic and sedative-hypnotic drugs, initial encounter; J43.9 Emphysema, unspecified; E87.6 Hypokalemia; I49.1 Atrial premature depolarization; I48.0 Paroxysmal atrial fibrillation; K21.9 Gastro-esophageal reflux disease without esophagitis; I10 Essential (primary) hypertension; Z20.822 Contact with and (suspected) exposure to COVID-19; Z90.2 Acquired absence of lung [part of]; Z85.118 Personal history of other malignant neoplasm of bronchus and lung; Z99.81 Dependence on supplemental oxygen; Z87.891 Personal history of nicotine dependence; Z79.01 Long term (current) use of anticoagulants; Z79.899 Other long term (current) drug therapy
CPT/HCPCS: 36415; 70450; 71045; 71275; 80048; 80076; 81001; 82803; 83605; 83690; 83735; 83880; 84145; 84439; 84443; 84481; 84484; 85025; 85379; 85610; 87040; 87086; 87633; 87635; 93005; 93306; 93970; 94640; 95816; 99285; J0456; J0696; J2920; J2930; Q9957; Q9967

== ENCOUNTER 2022-04-20 23:38 | Observation (INO) | payer MEDICARE, SELFPAY ==
--- NOTE | ~2022-04-20 | XR_ITS ---
EXAMINATION: XR CHEST CLINICAL INFORMATION: Shortness of breath COMPARISON: Chest radiograph 04/02/[address] angiogram chest 04/02/2022 TECHNIQUE: Frontal view of the chest was obtained. FINDINGS: Heart and pulmonary vessels appear normal. No CHF. No infiltrates, pleural effusions or lung masses are seen. Right basilar scarring is present. XR/XR chest 1V IMPRESSION: No acute intrathoracic disease.
[2022-04-20 23:48] VITALS: BP 140/70; PULSE 160; O2SAT 99
--- NOTE | 2022-04-20 23:59 | ECG_ITS ---
Test Reason : CHEST PAIN Blood Pressure : / mmHG Vent. Rate : 117 BPM Atrial Rate : 000 BPM P-R Int : 000 ms QRS Dur : 084 ms QT Int : 346 ms P-R-T Axes : 000 058 097 degrees QTc Int : 482 ms Atrial fibrillation with rapid ventricular response ST & T wave abnormality, consider anterolateral ischemia Abnormal ECG When compared with ECG of 02-APR-2022 12:12, Atrial fibrillation has replaced Sinus rhythm ST more depressed Inferior leads Lateral leads Referred By: Noah Carrero Electronically Signed By:LAURA SANDERSON MD
[2022-04-21] VITALS (10 sets, daily range): BP systolic 101–133; BP diastolic 51–84; PULSE 66–92; RESP 16–32; TEMP 36.3–36.9; O2SAT 93–98; BMI 27.2; BMI 25.0
--- NOTE | 2022-04-21 | ECG_ITS ---
Test Reason : CHEST PAIN Blood Pressure : / mmHG Vent. Rate : 097 BPM Atrial Rate : 000 BPM P-R Int : 000 ms QRS Dur : 080 ms QT Int : 352 ms P-R-T Axes : 000 059 047 degrees QTc Int : [address] & T wave abnormality, consider anterior ischemia Abnormal ECG When compared with ECG of 21-APR-2022 00:03, No significant change was found Referred By: Noah Carrero Electronically Signed By:LAURA SANDERSON MD
[2022-04-21] MEDS: dilTIAZem HCL 50 MG/10 ML VIAL 15 MG IVPUSH (00:23)
--- NOTE | 2022-04-21 00:40 | ED_ITS ---
HPI - Chest Pain General Chief Complaint: Chest Pain Stated Complaint: SOB, 99% 2L(2L BASELINE AT NIGHT) Time Seen by Provider: 04/20/22 23:46 Source: patient, EMS and old records reviewed Mode of arrival: EMS Limitations: no limitations History of Present Illness HPI narrative: 67-year-old female with a past medical history of atrial fibrillation, COPD, lung cancer presents to the emergency department today by EMS with palpitations and mild shortness of breath. Patient states started earlier today, noted her heart rate to be in the 170s when checked with her home pulse oximeter. EMS found her rate to be between 90 and 140 enroute to the hospital. The patient did not receive medications pre-hospital. The patient denies any exacerbating or relieving factors. She states she did have something similar in the past, and was hospitalized for several days here. Pertinent past history: other (See above) Onset: during rest Severity: moderate Relieving factors: nothing Exacerbating factors: nothing Risk Factors Thoracic aortic dissection risk factors: none Related Data On Oral Contraceptives: No Home Medications Medication Instructions Recorded Confirmed albuterol sulfate 90 mcg/actuation 2 puff inhalation Q4H PRN 04/02/22 04/02/22 aerosol inhaler Shortness Of Breath apixaban 5 mg tablet (Eliquis) 1 tab PO BID 04/02/22 04/02/22 azithromycin 250 mg tablet 1 tab PO DAILY 04/02/22 04/02/22 lorazepam 0.5 mg tablet 1 tab PO DAILY PRN anxiety 04/02/22 04/02/22 omeprazole 40 mg capsule,delayed 1 cap PO BID@0630,1630 04/02/22 04/02/22 release prednisone 20 mg tablet 1 tab PO BID 04/02/22 04/02/22 verapamil 120 mg tablet,extended 1 tab PO BEDTIME 04/02/22 04/02/22 release verapamil 240 mg tablet,extended 1 tab PO BEDTIME 04/02/22 04/02/22 release Previous Rx's Medication Instructions Recorded hydrochlorothiazide 12.5 mg tablet 12.5 mg PO DAILY #30 tabs 04/04/22 lamotrigine 100 mg tablet 100 mg PO BID #60 tabs 04/04/22 prednisone 20 mg tablet 40 mg PO DAILY #6 tabs 04/04/22 Allergies Allergy/AdvReac Type Severity Reaction Status Date / Time bupropion [From Wellbutrin] Allergy Chest Pain Verified 04/20/22 23:59 ciprofloxacin Allergy Chest Pain Verified 04/20/22 23:59 prednisone Allergy Seizure Verified 04/20/22 23:59 Review of Systems Review of Systems: Yes all other systems are reviewed and are negative Constitutional: Constitutional: Denies chills, Denies fatigue, Denies fever(s) and Denies weakness Eyes: Eyes: Reports no additional eye complaints ENT: Reports system reviewed and no additional complaints, except as documented Cardiovascular: Cardiovascular: Denies syncope, Reports rapid heart rate, Reports irregular heart rhythm, Denies lightheadedness, Denies Loss of Consciousness, Reports palpitations and Denies dyspnea Respiratory: Respiratory: Denies cough and Denies dyspnea Gastrointestinal: Gastrointestinal: Reports no additional gastrointestinal complaints Genitourinary: Genitourinary: Reports no additional female genitourinary complaints Musculoskeletal: Musculoskeletal: Reports no additional musculoskeletal comp laints and Denies tingling Neurologic: Reports Abnormal speech present, Denies syncope, Denies seizure- like activity, Denies Sensory deficit (Neuro), Denies tingling and Denies weakness Endocrine: Endocrine: Denies cold intolerance, Denies fatigue and Reports palpitations [facility] Past Medical History [facility] Narrative: Old records reviewed. The patient was here approximately 2 half to 3 weeks ago with rapid atrial fibrillation, and apparent seizure. Source: old records reviewed and nursing notes reviewed Medical History Afib Emphysema/COPD GERD (gastroesophageal reflux disease) HTN (hypertension) Seizure Upper respiratory infection Family History Family History Mother Small cell lung cancer Father Stomach cancer Brother Diabetes Social History Social History Patient Tobacco Use Status: Former Tobacco user Advance Directives: No service: No Current occupational status: employed Physical Exam Vital Signs: Vital Signs: Last Vital Signs Temp 98.3 F 04/21/22 00:49 Pulse 80 04/21/22 00:49 Resp 16 04/21/22 00:49 BP 122/60 04/21/22 00:49 Pulse Ox 98 04/21/22 00:49 O2 Del Method 04/21/22 00:49 O2 Flow Rate 2 04/21/22 00:49 Oxygen Flow Rate 2 04/21/22 00:04 BMI result Body Mass Index 27.2 Vital signs as recorded normal except respirations 32. Const: General: cooperative, comfortable, alert and awake Nutritional Appearance: average body habitus Orientation/consciousness: patient oriented x3 HEENT: Head: Yes normal to inspection, Yes normocephalic and Yes atraumatic Ears: hearing grossly normal bilaterally and external ears normal General nose exam: Normal external nose present Mouth: Normal oral and palatal mucosa present Eyes: Eyelids: Yes eyelids normal Conjunctivae: conjunctivae normal Sclerae: sclerae normal Pupils: Equal, round and reactive pupils present EOM: EOMs intact bilaterally Neck: Neck: Yes normal visual inspection and Yes full ROM Chest: Chest palpation & inspection: normal inspection of the chest Resp: Effort & Inspection: no cough and respiratory effort not decreased Auscultation: crackles (Scattered mild) Cardio: Rate: tachycardic Rhythm: abnormal rhythm irregularly irregular Heart sounds: no murmurs GI: Inspection: Yes normal to inspection and No Abdominal wall edema Back/Spine/Pelvis: Cervical Spine: normal cervical lordosis and cervical ROM normal Thoracic/Lumbar Spine: thoracic and lumbar spine normal to inspection Skin: General skin exam: no erythema and no jaundice Neuro: General: patient oriented x3 and CN's II-XI intact bilaterally Cranial nerves: Yes CN's II-XII intact bilaterally and Yes Equal, round and reactive pupils present Speech: Abnormal speech present Sensory Exam: No Sensory deficit (Neuro) Extrem: General: No edema and No pedal edema Medications Administered Discontinued Medications Generic Name Dose Route Start Last Admin Trade Name Freq PRN Reason Stop Dose Admin Diltiazem HCl 15 mg 04/20/22 23:58 04/21/22 00:23 Diltiazem Hcl 50 Mg/10 Ml Vial IVPUSH 04/20/22 23:59 15 mg STAT STA Administration MDM - Chest Pain MDM Narrative Medical decision making narrative: 59-year-old female with a past medical history of paroxysmal AFib and COPD presents to the hospital tonight with palpitations. Found to have a elevated heart rate in 130's EN route to the hospital. While in the emergency department. The patient did go as high as 145-150, atrial fibrillation. Laboratory studies were reviewed which revealed a normal troponin, normal CBC and normal electrolytes with the exception of a slightly decreased potassium. The patient did receive a single dose of IV Cardizem, with resultant heart rate in the 70s. The patient is on Eliquis, so does not need anticoagulation. However, because of the nature of the patient's tachycardia with variable rates and requiring IV Cardizem, the patient will be admitted to the hospital for additional management. Repeat troponin and EKG in the morning. Medical Records Data Attestation: I reviewed the patient's medical records. Lab Data Attestation: I reviewed the patient's lab results. Result diagrams: 04/21/22 00:41 04/21/22 00:41 Labs: Lab Results 04/21/22 04/21/22 04/21/22 Range/Units 00:41 00:41 00:41 WBC 7.2 (4.8-10.8) X10*3/uL RBC 4.35 (4.20-5.50) X10*6/uL Hgb 13.0 (12.0-16.0) g/dl Hct 38.8 (37.0-47.0) % MCV 89.2 (80.0-98.0) fL MCH 29.9 (27.0-33.0) pg MCHC 33.5 (31.0-35.0) g/dl RDW 13.2 (11.0-16.0) % Plt Count 276 (160-400) X10*3/uL MPV 9.0 L (9.4-12.3) fL Immature Gran % (Auto) 0.1 (0.0-0.4) % Neut % (Auto) 71.0 (45-73) % Lymph % (Auto) 17.6 L (20-40) % [place] % (Auto) 7.6 (2-11) % Eos % (Auto) 2.9 (0-4) % Baso % (Auto) 0.8 (0-2) % Lymph # (Auto) 1.3 (1.2-4.9) X10*3/uL [place] # (Auto) 0.6 (0.1-1.2) X10*3/uL Eos # (Auto) 0.2 (0.0-0.4) X10*3/uL Baso # (Auto) 0.1 (0.0-0.2) X10*3/uL Abs Immat Gran (auto) 0.01 (0.00-0.03) X10*3/uL Absolute Neuts (auto) 5.1 (2.0-8.3) x10*3/uL Absolute Nucleated RBC 0.000 (0.0-0.012) X10*3/uL Nucleated RBC % (auto) 0.0 (0.0-0.2) /100WBC Sodium 140 (135-145) mmol/L Potassium 3.7 (3.3-5.1) mmol/L Chloride 98 (96-108) mmol/L Carbon Dioxide 29 (22-29) mmol/L Anion Gap 17 (12-20) BUN 17 H (9-16) mg/dL Creatinine 1.00 (0.5-1.4) mg/dL Estim Creat Clear Calc 56.3 Estimated GFR 55 Random Glucose 107 (60-115) mg/dL Calcium 9.0 (8.4-10.2) mg/dL Troponin I High Sens 4.0 D (<3.5-17.0) ng/L CBC and chemistry normal Imaging Data Chest x-ray: Radiologist's impression: Heart and pulmonary vessels appear normal. No CHF. No infiltrates, pleural effusions or lung masses are seen. Right basilar scarring is present. ECG Data ECG #1: ECG interpretation date: 04/21/22 ECG interpretation time: 00:10 Ischemic changes: non-specific ST-T wave changes Interpretation: Atrial fibrillation at a rate of 97. Subtle ST and T-wave changes in V3 V4 and V5, possible ischemic. May be rate related. Comparison to previous EKG from 6 minutes previous shows no significant interval change with the exception of the previous EKG having a ventricular rate of 117.. Critical Care Time Critical Care Time Critical Care Time: Yes Total Critical Care Time: 40 Attestation: The patient arrived to the ED with a critical illness, or critical findings necessitating immediate assessment. Cardiopulmonary monitoring was initiated due to the potential for rapid decompensation of the patient's clinical condition. During the course of the patient?s stay, significant time was spent at the bedside performing serial re-evaluations of the patient's hemodynamic and clinical status because of the recognized potential threat to life or limb in this condition. The patient received IV Cardizem with good effect, HR 75-80. All of the available current laboratory and radiographic studies obtained were reviewed. Any available old records were reviewed, including records from primary care physicians and outside institutions. Additionally, ancillary information available including EMS records were reviewed. The case was discussed with the patient and the hospitalist. Sequential vital signs were obtained. Critical Care time of 40 minutes was performed exclusive of billable procedures Discharge Plan Discharge Clinical Impression: Paroxysmal atrial fibrillation, Abnormal EKG Patient Disposition: Admitted As Inpatient
--- NOTE | 2022-04-21 00:40 | PC.NURSE ---
pt a&ox3, sinus tach/rapid afib on monitor, medicated per provider order w HR reduced to 70-100. XR at bedside.
[2022-04-21 00:45] LABS: MANUAL DIFF FLAG NO
[2022-04-21 00:46] LABS: Basophils Absolute Auto 0.1 X10*3/uL (0.0-0.2); Basophils Percent Auto 0.8 % (0-2); Eosinophils Absolute Auto 0.2 X10*3/uL (0.0-0.4); Eosinophils Percent Auto 2.9 % (0-4); Hematocrit 38.8 % (37.0-47.0); Imm Gran Abs Auto 0.01 X10*3/uL (0.00-0.03); Imm Gran Pct Auto 0.1 % (0.0-0.4); Lymphocytes Absolute Auto 1.3 X10*3/uL (1.2-4.9); Lymphocytes Percent Auto 17.6 % (20-40); Mean Corpuscular HGB Conc 33.5 g/dl (31.0-35.0); Mean Corpuscular Hemoglobin 29.9 pg (27.0-33.0); Mean Corpuscular Volume 89.2 fL (80.0-98.0); Monocytes Absolute Auto 0.6 X10*3/uL (0.1-1.2); Monocytes Percent Auto 7.6 % (2-11); Neutrophils Absolute Auto 5.1 x10*3/uL (2.0-8.3); Platelet Count 276 X10*3/uL (160-400); Red Blood Count 4.35 X10*6/uL (4.20-5.50); Red Cell Distribution Width 13.2 % (11.0-16.0); White Blood Count 7.2 X10*3/uL (4.8-10.8)
[2022-04-21 01:04] LABS: Anion Gap 17 (12-20); Blood Urea Nitrogen 17 mg/dL (9-16); Carbon Dioxide 29 mmol/L (22-29); Chloride 98 mmol/L (96-108); Creatinine Clr Calc Pharmacy 56.3; Estimated Glomerular Filt Rate 55; Glucose Random 107 mg/dL (60-115); Potassium 3.7 mmol/L (3.3-5.1); Sodium 140 mmol/L (135-145)
--- NOTE | 2022-04-21 01:34 | PM.IMHP ---
History of Present Illness Date of Service: 04/21/22 Chief Complaint: Palpitations This is a 67-year-old female with pertinent history of seizure disorder, paroxysmal atrial fibrillation on Eliquis, chronic hypoxemic respiratory failure secondary to COPD, generalized anxiety disorder, essential hypertension presents to the emergency department for evaluation of palpitations and chest discomfort. Patient states she had sudden-onset palpitations at home. She checked her pulse ox meter which showed her heart rate in the 170s. Patient took an Ativan but it did not slow down her heart rate and hence decided to call EMS and present to the ER. Patient states she had associated midsternal chest discomfort, nonradiating, did not relieve with rest and resolved with lowering of heart rate in the ER. Patient denies fever, chills, shortness of breath, abdominal discomfort, changes in urinary or bowel habits. States he is compliant with home medications and took her night dose of prescription medications. In the emergency department, patient was found to be in AFib with RVR. Heart rate was in the 150s and required IV diltiazem push. [facility] Medical History Afib Emphysema/COPD GERD (gastroesophageal reflux disease) HTN (hypertension) Seizure Upper respiratory infection Family History Mother Small cell lung cancer Father Stomach cancer Brother Diabetes Social History Patient Tobacco Use Status: Former Tobacco user Advance Directives: No service: No Current occupational status: employed Meds Allergies Allergy/AdvReac Type Severity Reaction Status Date / Time bupropion [From Wellbutrin] Allergy Chest Pain Verified 04/20/22 23:59 ciprofloxacin Allergy Chest Pain Verified 04/20/22 23:59 prednisone Allergy Seizure Verified 04/20/22 23:59 Active Medications: Current Medications Pharmacy Consult (Consult Rx Perform Med Rec) 1 each MISCELLANE ONCE PRN PRN Reason: Consult order Home Medications Medication Instructions Recorded Confirmed Last Taken Type albuterol sulfate 90 mcg/actuation 2 puff inhalation Q4H PRN 04/02/22 04/02/22 Unknown History aerosol inhaler Shortness Of Breath apixaban 5 mg tablet (Eliquis) 1 tab PO BID 04/02/22 04/02/22 04/01/22 History azithromycin 250 mg tablet 1 tab PO DAILY 04/02/22 04/02/22 04/01/22 History lorazepam 0.5 mg tablet 1 tab PO DAILY PRN anxiety 04/02/22 04/02/22 Unknown History omeprazole 40 mg capsule,delayed 1 cap PO BID@0630,1630 04/02/22 04/02/22 04/01/22 History release prednisone 20 mg tablet 1 tab PO BID 04/02/22 04/02/22 04/01/22 History verapamil 120 mg tablet,extended 1 tab PO BEDTIME 04/02/22 04/02/22 04/01/22 History release verapamil 240 mg tablet,extended 1 tab PO BEDTIME 04/02/22 04/02/22 04/01/22 History release Physical Exam Vital Signs and Narrative: Vital Signs: Last Vital Signs Temp 98.3 F 04/21/22 00:49 Pulse 80 04/21/22 00:49 Resp 16 04/21/22 00:49 BP 122/60 04/21/22 00:49 Pulse Ox 98 04/21/22 00:49 O2 Del Method 04/21/22 00:49 O2 Flow Rate 2 04/21/22 00:49 Oxygen Flow Rate 2 04/21/22 00:04 BMI result Body Mass Index 27.2 Middle-aged female lying in bed in no distress Neck supple, no JVD, no chest wall tenderness Irregularly irregular, S1-S2 heard Regular breath sounds bilaterally, no wheezing or crackles appreciated Abdomen soft nontender, no guarding, no rigidity Patient is awake, alert and oriented to self, place, time and person ; no focal motor deficit Psych: Normal mood No pedal edema Results Labs CBC and Chem 7: 04/21/22 00:41 04/21/22 00:41 Labs: Laboratory Results - last 24 hr 04/21/22 04/21/22 04/21/22 00:41 00:41 00:41 MCV 89.2 MCH 29.9 MCHC 33.5 RDW 13.2 Plt Count 276 MPV 9.0 L Immature Gran % (Auto) 0.1 Neut % (Auto) 71.0 Lymph % (Auto) 17.6 L [place] % (Auto) 7.6 Eos % (Auto) 2.9 Baso % (Auto) 0.8 Lymph # (Auto) 1.3 [place] # (Auto) 0.6 Eos # (Auto) 0.2 Baso # (Auto) 0.1 Abs Immat Gran (auto) 0.01 Absolute Neuts (auto) 5.1 Absolute Nucleated RBC 0.000 Nucleated RBC % (auto) 0.0 Anion Gap 17 Estim Creat Clear Calc 56.3 Estimated GFR 55 Random Glucose 107 Calcium 9.0 Troponin I High Sens 4.0 D Imaging Radiologist's Impressions: Impressions Chest X-Ray 04/21/22 00:30 IMPRESSION: No acute intrathoracic disease. Assessment and Plan (1) Paroxysmal atrial fibrillation: Status: Acute (2) Seizure: Status: Acute (3) HTN (hypertension): Status: Acute (4) Emphysema/COPD: Status: Acute Plan This is a 67-year-old female with pertinent history of seizure disorder, paroxysmal atrial fibrillation on Eliquis, chronic hypoxemic respiratory failure secondary to COPD, generalized anxiety disorder, essential hypertension presents to the emergency department for evaluation of palpitations and chest discomfort. #. Paroxysmal Afib with RVR -received diltiazem IV push in the ER with HR now controlled. Will admit with satellite project site monitor for observation. Consult cardiology for recommendation, may need home medication adjustment. TSH pending. Had an echo during previous admission #. Atypical chest pain -likely due to above. Trend troponins #. Chronic hypoxemic respiratory failure secondary to COPD - on 2 L supplemental oxygen at home at baseline. No concern for exacerbation at admission. #. Essential hypertension Continue home medications #. Seizure disorder -continue lamotrigine #. Anxiey -lorazepam prn Patient took all her night time meds. Med rec pending DVT prophyalxis: Eliquis Cardiac diet Full code Quality Stroke Does the patient have a stroke diagnosis?: No VTE Prior VTE?: No VTE Risk Level:: Medical - moderate - high VTE Device Contraindication: Treatment Not Indicated VTE Drug Contraindication: N/A - Med Ordered
--- NOTE | 2022-04-21 02:31 | PC.NURSE ---
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
[2022-04-21 02:46] LABS: COVID-19 Test Negative (Negative)
--- NOTE | 2022-04-21 03:50 | PC.NURSE ---
assumed care of patient. patient rounding complete. patient is sleeping, chest rise and fall equal and unlabored. will continue to round hourly...
--- NOTE | 2022-04-21 04:06 | PC.NURSE ---
0400 rounding done vs taken pt is awake watching television ,call paige within reach .
--- NOTE | 2022-04-21 06:38 | PC.NURSE ---
patient ambulated to the bathroom with strong steady gait.
[2022-04-21 07:04] LABS: Anion Gap 14 (12-20); Blood Urea Nitrogen 19 mg/dL (9-16); Carbon Dioxide 30 mmol/L (22-29); Chloride 99 mmol/L (96-108); Creatinine Clr Calc Pharmacy 65.5; Estimated Glomerular Filt Rate > 60; Glucose Random 111 mg/dL (60-115); Potassium 3.7 mmol/L (3.3-5.1); Sodium 139 mmol/L (135-145)
[2022-04-21 07:06] LABS: Troponin-I High Sensitivity 5.4 ng/L (<3.5-17.0)
--- NOTE | 2022-04-21 07:08 | PC.NURSE ---
pt asleep, nad noted. hr 74 nsr at this time.
[2022-04-21 07:15] LABS: Thyroid Stimulating Hormone 2.18 uIU/mL (0.32-4.0)
--- NOTE | 2022-04-21 08:07 | PHA.MEDREC ---
Pharmacy Consult ? Medication Reconciliation Pharmacy has completed the medication reconciliation. Patient confirmed all medications. Reported that her lamotrigine was recent increased to 100 mg BID. She reports still actively taking Eliquis. Lucy Sweet, JennyferD
[2022-04-21] MEDS: lamoTRIgine 100 MG TABLET PO ×2 (08:38→20:10)
[2022-04-21] MEDS: Apixaban 5 MG TABLET PO ×2 (08:39→20:10)
--- NOTE | 2022-04-21 12:44 | PM.CNCAR ---
History of Present Illness History of Present Illness Date of Service: 04/21/22 Requesting physician: Tamela Garnica Chief complaint: Palpitations, PAF Narrative: 67-year-old female was seen in March a seizure and paroxysmal atrial fibrillation. She broke out of AFib at that stage. She was on verapamil and Eliquis at home. She is not returning with rapid palpitations and noticed to be in atrial fibrillation with rapid ventricular response. She was given Cardizem in the ER and it appears she broke out of AFib again into sinus rhythm. She has no symptoms now. She said she had some discomfort in her chest when she was going fast at 170 beats per minute. Otherwise does not get any chest discomfort with activities. No bleeding issues with Eliquis. [facility] Past Medical History Medical History Afib Emphysema/COPD GERD (gastroesophageal reflux disease) HTN (hypertension) Seizure Upper respiratory infection Family History Family History Mother Small cell lung cancer Father Stomach cancer Brother Diabetes Social History Social History Patient Tobacco Use Status: Former Tobacco user Advance Directives: Yes Advance Directives on File: Yes Advance Directives Date on File: 04/21/22 service: No Current occupational status: employed Meds Allergies Allergy/AdvReac Type Severity Reaction Status Date / Time bupropion [From Wellbutrin] Allergy Chest Pain Verified 04/20/22 23:59 ciprofloxacin Allergy Chest Pain Verified 04/20/22 23:59 prednisone Allergy Seizure Verified 04/20/22 23:59 Active Medications: Current Medications Acetaminophen (Acetaminophen 325 Mg Tablet) 650 mg PO Q6H PRN PRN Reason: Pain, Mild (Pain Scale 1-3) Albuterol Sulfate (Albuterol Sulfate 90 Mcg 8 Gm Inhaler) 2 puff INHALE Q4H PRN PRN Reason: Shortness Of Breath Albuterol/Ipratropium (Albuterol/Iprat 2.5/0.5mg 3 Ml Ampul.Neb) 3 ml INHALE Q6H PRN PRN Reason: Wheezing Apixaban (Apixaban 5 Mg Tablet) 5 mg PO BID SHELBI Last Admin: 04/21/22 08:39 Dose: 5 mg Fluticasone Propionate (Fluticasone Propionate Nasal 16 Gm Distant) 1 spray NOSTRIL-B BEDTIME [facility] Lamotrigine (Lamotrigine 100 Mg Tablet) 100 mg PO BID [facility] Last Admin: 04/21/22 08:38 Dose: 100 mg Lorazepam (Lorazepam 0.5 Mg Tablet) 0.5 mg PO DAILY PRN PRN Reason: anxiety Melatonin (Melatonin 3 Mg Tablet) 6 mg PO BEDTIME PRN PRN Reason: Insomnia Nitroglycerin (Nitroglycerin 0.4 Mg Tab.Subl) 0.4 mg SUBLINGUAL Q5MX3 PRN PRN Reason: Chest Pain Non-Formulary Medication (Umeclidinium-Vilanterol [Anoro Ellipta]) 1 puff INHALE DAILY [facility] Omeprazole (Omeprazole 40 Mg Capsule.Dr) 40 mg PO BID@0630,1630 [facility] Ondansetron HCl (Ondansetron Hcl 4 Mg/2 Ml Vial) 4 mg IVPUSH Q8H PRN PRN Reason: Nausea and Vomiting Pharmacy Consult (Consult Rx Perform Med Rec) 1 each MISCELLANE ONCE PRN PRN Reason: Consult order Sodium Chloride (0.9 % Sodium Chloride Flush 3 Ml Syringe) 3 ml IVFLUSH QSHIFT [facility] Last Admin: 04/21/22 07:14 Dose: Not Given Home Medications Medication Instructions Recorded Confirmed Last Taken Type albuterol sulfate 90 mcg/actuation 2 puff inhalation Q4H PRN 04/02/22 04/21/22 Unknown History aerosol inhaler Shortness Of Breath apixaban 5 mg tablet (Eliquis) 1 tab PO BID 04/02/22 04/21/22 04/20/22 History azithromycin 250 mg tablet 1 tab PO DAILY 04/02/22 04/21/22 04/20/22 History lorazepam 0.5 mg tablet 1 tab PO DAILY PRN anxiety 04/02/22 04/21/22 Unknown History omeprazole 40 mg capsule,delayed 1 cap PO BID@0630,1630 04/02/22 04/21/22 04/20/22 History release verapamil 120 mg tablet,extended 1 tab PO BEDTIME 04/02/22 04/21/22 04/20/22 History release verapamil 240 mg tablet,extended 1 tab PO BEDTIME 04/02/22 04/21/22 04/20/22 History release fluticasone propionate 50 1 spray intranasal BEDTIME 04/21/22 04/21/22 04/20/22 History mcg/actuation nasal spray,suspension hydrochlorothiazide 12.5 mg tablet 12.5 mg PO BEDTIME 04/21/22 04/21/22 04/20/22 History ipratropium 0.5 mg-albuterol 3 mg 3 ml inhalation Q6H PRN Wheezing 04/21/22 04/21/22 Unknown History (2.5 mg base)/3 mL nebulization soln umeclidinium 62.5 mcg-vilanterol 1 puff inhalation DAILY 04/21/22 04/21/22 04/20/22 History 25 mcg/actuation powdr for inhalation (Anoro Ellipta) Physical Exam Vital Signs: Vital Signs: Last Vital Signs Temp 98.2 F 04/21/22 07:24 Pulse 72 04/21/22 07:24 Resp 18 04/21/22 07:24 BP 133/67 04/21/22 07:24 Pulse Ox 93 04/21/22 07:24 O2 Del Method 04/21/22 07:24 O2 Flow Rate 1 04/21/22 04:00 Oxygen Flow Rate 2 04/21/22 00:04 BMI result Body Mass Index 27.2 GENERAL APPEARANCE: in no acute distress, pleasant. NECK: no carotid bruit, no jugular venous distention. SKIN: no suspicious lesions, warm and dry. HEART: no murmurs, regular rate and rhythm. LUNGS: Clear to auscultation bilateral ABDOMEN: soft, nontender. EXTREMITIES: no edema. PERIPHERAL PULSES: equal. NEUROLOGIC: No gross deficits, AAO X 3 Objective Labs and Meds Result diagrams: 04/21/22 00:41 04/21/22 06:21 Lab results: Laboratory Results - last 24 hr 04/21/22 04/21/22 04/21/22 00:41 00:41 00:41 WBC 7.2 RBC 4.35 Hgb 13.0 Hct 38.8 MCV 89.2 MCH 29.9 MCHC 33.5 RDW 13.2 Plt Count 276 MPV 9.0 L Immature Gran % (Auto) 0.1 Neut % (Auto) 71.0 Lymph % (Auto) 17.6 L Clinch % (Auto) 7.6 Eos % (Auto) 2.9 Baso % (Auto) 0.8 Lymph # (Auto) 1.3 Clinch # (Auto) 0.6 Eos # (Auto) 0.2 Baso # (Auto) 0.1 Abs Immat Gran (auto) 0.01 Absolute Neuts (auto) 5.1 Absolute Nucleated RBC 0.000 Nucleated RBC % (auto) 0.0 Sodium 140 Potassium 3.7 Chloride 98 Carbon Dioxide 29 Anion Gap 17 BUN 17 H Creatinine 1.00 Estim Creat Clear Calc 56.3 Estimated GFR 55 Random Glucose 107 Calcium 9.0 Troponin I High Sens 4.0 D TSH COVID-19 ([facility]) COVID-19 Clin Com 04/21/22 04/21/22 04/21/22 02:27 06:21 06:21 WBC RBC Hgb Hct MCV MCH MCHC RDW Plt Count MPV Immature Gran % (Auto) Neut % (Auto) Lymph % (Auto) Clinch % (Auto) Eos % (Auto) Baso % (Auto) Lymph # (Auto) Clinch # (Auto) Eos # (Auto) Baso # (Auto) Abs Immat Gran (auto) Absolute Neuts (auto) Absolute Nucleated RBC Nucleated RBC % (auto) Sodium 139 Potassium 3.7 Chloride 99 Carbon Dioxide 30 H Anion Gap 14 BUN 19 H Creatinine 0.86 Estim Creat Clear Calc 65.5 Estimated GFR > 60 Random Glucose 111 Calcium 9.0 Troponin I High Sens TSH 2.18 COVID-19 ([facility]) Negative COVID-19 Clin Com See Note 04/21/22 06:21 WBC RBC Hgb Hct MCV MCH MCHC RDW Plt Count MPV Immature Gran % (Auto) Neut % (Auto) Lymph % (Auto) Clinch % (Auto) Eos % (Auto) Baso % (Auto) Lymph # (Auto) Clinch # (Auto) Eos # (Auto) Baso # (Auto) Abs Immat Gran (auto) Absolute Neuts (auto) Absolute Nucleated RBC Nucleated RBC % (auto) Sodium Potassium Chloride Carbon Dioxide Anion Gap BUN Creatinine Estim Creat Clear Calc Estimated GFR Random Glucose Calcium Troponin I High Sens 5.4 TSH COVID-19 ([facility]) COVID-19 Clin Com Imaging Radiologist's impression: Impressions Chest X-Ray 04/21/22 00:30 IMPRESSION: No acute intrathoracic disease. Assessment and Plan (1) Emphysema/COPD: Status: Acute (2) HTN (hypertension): Status: Acute (3) Paroxysmal atrial fibrillation: Status: Acute Plan 67-year-old female who is here for paroxysmal atrial fibrillation. She has symptomatic AFib and gets palpitations and chest discomfort. Previously EKG was abnormal with recorded T-wave inversions. She did not have ACS on last admission and echocardiography did not show any wall motion abnormalities. She is complaining of chest discomfort with atrial fibrillation. I think the likely cause is AFib but given her history of smoking and risk factors for coronary disease I think she should undergo stress testing as outpatient. Currently she is back in sinus rhythm. Adding Multaq 400 mg twice a day. Increase the verapamil to 240 mg once a day. Continue Eliquis as before. If stable tomorrow then can be discharged home. Thank you for allowing me to participate in the care of your patient. Please feel free to contact me if you have any questions. Procedures Date of Service Date of Service: 04/21/22
--- NOTE | 2022-04-21 13:12 | PM.EVENT ---
Event Note Date of Service: 04/21/22 Event Note: Patient admitted this morning due to sudden onset of palpitations at home, patient took Ativan but since her heart rate remained elevated she came to the emergency room where she was noted to be in atrial fibrillation with RVR heart rate was in 150s and was treated with IV diltiazem push Patient with known history of paroxysmal atrial fibrillation on Eliquis and verapamil On examination patient awake alert offers no acute complaints 67-year-old female with pertinent history of seizure disorder,? paroxysmal atrial fibrillation on Eliquis, chronic hypoxemic respiratory failure secondary to COPD, generalized anxiety disorder, essential hypertension presents to the emergency department for evaluation of palpitations and chest discomfort. #. Paroxysmal Afib with RVR Ventricular rate improved case discussed with Dr. Trevino he started patient on Multaq 400 mg by mouth b.i.d. Will reduce dose of verapamil to 240 mg daily Echo from April 04 showed EF 65-70% no wall motion abnormality TSH 5.4 #. Atypical chest pain -likely due to above, troponin flat #. Chronic hypoxemic respiratory failure secondary to COPD no acute exacerbation on 2 L of home O2 #.? Essential hypertension will lower dose of verapamil since started on Multaq continue hydrochlorothiazide #. Seizure disorder -continue lamotrigine #. Anxiey -lorazepam prn DVT prophyalxis: Eliquis
--- NOTE | 2022-04-21 13:24 | PC.NURSE ---
Dromedaron not loaded in ED pyxis, pharmacy called at 1320
[2022-04-21] MEDS: Dronedarone HCl 400 MG TABLET PO ×2 (13:43→20:10)
--- NOTE | 2022-04-21 14:13 | PC.NURSE ---
Pt resting comfortably on bed at this time with family at bedside. HR stable in the 70s, pt is reporting no pain at this time
[2022-04-21] MEDS: Omeprazole 40 MG CAPSULE.DR PO (16:36)
[2022-04-21] MEDS: 0.9 % Sodium Chloride Flush 3 ML SYRINGE IVFLUSH ×2 (16:37→20:11)
[2022-04-21] MEDS: VerapamiL HCL SR 240 MG TABLET.ER PO (20:10)
[2022-04-21] MEDS: Fluticasone Propionate Nasal 16 GM SPRAY 1 SPRAY NOSTRIL-B (21:20)
[2022-04-21] MEDS: Benzonatate 100 MG CAPSULE 200 MG PO (22:35)
[2022-04-22 03:51] VITALS: BP 115/60; PULSE 63; RESP 17; TEMP 36.8; O2SAT 99
[2022-04-22] MEDS: Omeprazole 40 MG CAPSULE.DR PO (05:29)
--- NOTE | 2022-04-22 05:41 | PC.NURSE ---
Pt's admission inquiry was done, pt stated willingness to take the flu shot, As I was completing the admission flu shot checklist, comment says component series completed conflict , pharmacy and Dr. Dubois was notified, Dr. Dubois said to defer med to the morning team, pt was updated. Pt had bouts of persistent coughing later and requested for cough med, Dr. Dubois made aware, Tessalon po given. good effect noted.
[2022-04-22 07:46] VITALS: BP 155/70; PULSE 83; RESP 18; TEMP 36.6; O2SAT 95
[2022-04-22] MEDS: Dronedarone HCl 400 MG TABLET PO (08:50)
[2022-04-22] MEDS: 0.9 % Sodium Chloride Flush 3 ML SYRINGE IVFLUSH (08:50)
[2022-04-22] MEDS: Apixaban 5 MG TABLET PO (08:50)
[2022-04-22] MEDS: lamoTRIgine 100 MG TABLET PO (08:50)
[2022-04-22] MEDS: Benzonatate 100 MG CAPSULE 200 MG PO (08:53)
--- NOTE | 2022-04-22 09:15 | MHC.CM.PN ---
PATIENT LIVES WITH SPOUSE/HCP COPY REQUESTED. SPOUSE IS ON HIS WAY IN TO VISIT AND PATIENT IS HOPING TO DC HOME TODAY SHE RELIES ON HOME O2 @ NIGHT (2-2.5 L) AND HER INHALERS. BOOGIE 04/22 DISCUSSED, SIGNED, AND COPY IN CHART.
--- NOTE | 2022-04-22 11:09 | PM.PNCARD ---
Subjective Subjective Date of Service: 04/22/22 Interval history: Seen and examined at bedside. On Multaq. No further palpitations. Physical Exam Vital Signs: Last Vital Signs Temp 97.9 F 04/22/22 07:46 Pulse 83 04/22/22 07:46 Resp 18 04/22/22 07:46 BP 155/70 H 04/22/22 07:46 Pulse Ox 95 04/22/22 07:46 O2 Del Method 04/22/22 07:46 O2 Flow Rate 2 04/22/22 03:51 Oxygen Flow Rate 2 04/21/22 00:04 BMI result Body Mass Index 25.0 GENERAL APPEARANCE: in no acute distress, pleasant. NECK: no carotid bruit, no jugular venous distention. SKIN: no suspicious lesions, warm and dry. HEART: no murmurs, regular rate and rhythm. LUNGS: clear to auscultation bilaterally. ABDOMEN: soft, nontender. EXTREMITIES: no edema. PERIPHERAL PULSES: equal. NEUROLOGIC: No gross deficits, AAO X 3 Objective Labs and Meds Result diagrams: 04/21/22 00:41 04/21/22 06:21 Progress Note: A&P Assessment and plan (1) Paroxysmal atrial fibrillation: Status: Acute (2) Chest pain: Status: Acute Plan 67-year-old female presenting with paroxysmal atrial fibrillation. She has reverted back to sinus rhythm and has been started on Multaq 40 mg twice a day. She is supposed to be on azithromycin for chronic suppression of lung infections. There is an interaction between Multaq and azithromycin. 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 If this is not a possibility then will stop the Multaq and look for alternative agent. For chest pains we will arrange a stress test for her as outpatient. Thank you for allowing me to participate in the care of your patient. Please feel free to contact me if you have any questions. Time Spent With Patient Time: Total time spent is greater than 50% in coordination of care (as documented) at patient's floor/unit and/or counseling patient: Progress Note: Quality Stroke Does the patient have a stroke diagnosis?: No Procedures Date of Service Date of Service: 04/22/22
[2022-04-22 11:17] VITALS: BP 142/77; PULSE 76; RESP 18; TEMP 36.9; O2SAT 99
--- NOTE | 2022-04-22 12:59 | MHC.CM.PN ---
HOME - SELF CARE RN AWARE OF PLAN.
--- NOTE | 2022-04-22 14:39 | PM.DS ---
DS: Providers Provider Date of Service: 04/22/22 Date of admission: 04/21/22 01:32 Primary care physician: Giovanna Garcia NP Consults: 04/21/22 01:43 Consult to Cardiology Routine Consulting Provider: Sumeet Trevino Reason for consultation: afib with rvr Has provider been notified: No DS: Diagnosis Discharge Diagnosis (1) Paroxysmal atrial fibrillation: Status: Acute (2) Chest pain: Status: Acute DS: Summary Hospital Course Hospital Course: History of presenting illness Date of Service: 04/21/22 Chief Complaint: Palpitations This is a 67-year-old female with pertinent history of seizure disorder,? paroxysmal atrial fibrillation on Eliquis, chronic hypoxemic respiratory failure secondary to COPD, generalized anxiety disorder, essential hypertension presents to the emergency department for evaluation of palpitations and chest discomfort.? Patient states she had sudden-onset palpitations at home. She checked her pulse ox meter which showed her heart rate in the 170s.? Patient took an Ativan but it did not slow down her heart rate and hence decided to call EMS and present to the ER.? Patient states she had associated midsternal chest discomfort, nonradiating, did not relieve with rest and resolved with lowering of heart rate in the ER.? Patient denies fever, chills, shortness of breath, abdominal discomfort, changes in urinary or bowel habits.? States he is compliant with home medications and took her night dose of prescription medications. In the emergency department, patient was found to be in AFib with RVR.? Heart rate was in the 150s and required IV diltiazem push. Hospital course 67-year-old female with pertinent history of seizure disorder,? paroxysmal atrial fibrillation on Eliquis, chronic hypoxemic respiratory failure secondary to COPD, generalized anxiety disorder, essential hypertension presents to the emergency department for evaluation of palpitations and chest discomfort. #. Paroxysmal Afib with RVR patient admitted with rapid ventricular rate treated with 1 dose of IV Cardizem patient heart rate improved subsequently patient seen by Dr. Trevino then started on Multaq 400 mg by mouth Patient converted to normal sinus rhythm heart rate stayed stable she was supposed to be discharged home on Multaq but it is not covered by her insurance therefore Dr. Trevino recommend to discharge patient on home dose of verapamil 360 mg daily and he will follow-up as an outpatient and will consider a flecainide after a stress test ? ? Echo from April 04 showed EF 65-70% no wall motion abnormality, TSH 5.4 #. Atypical chest pain -likely due to above, troponin flat #. Chronic hypoxemic respiratory failure secondary to COPD no acute exacerbation continue 2 L of home oxygen #.? Essential hypertension is stable BP continue verapamil and hydrochlorothiazide #. Seizure disorder no seizure-like activity noted,continue lamotrigine Time Spent with Patient Time attestation: Total time spent providing and/or coordinating discharge services: Discharge coordination time: Greater than 30 minutes Quality: Safe Use of Opioids Does Pt have an Active Cancer Diagnosis on the Problem List?: No Quality: Stroke Does the patient have a stroke diagnosis?: No Physical Exam Vital Signs: Vital Signs: Last Vital Signs Temp 98.4 F 04/22/22 11:17 Pulse 76 04/22/22 11:17 Resp 18 04/22/22 11:17 BP 142/77 H 04/22/22 11:17 Pulse Ox 99 04/22/22 11:17 O2 Del Method 04/22/22 11:17 O2 Flow Rate 2 04/22/22 11:17 Oxygen Flow Rate 2 04/21/22 00:04 BMI result Body Mass Index 25.0 Const: Other: General patient resting comfortably in no acute distress. Neck no JVD. CVS regular rate rhythm, Respiratory lungs clear to auscultation, no respiratory distress, no wheeze, no rhonchi. Gastrointestinal abdomen soft, nontender, bowel sounds audible, no guarding , no rigidity. Extremities no clubbing cyanosis or edema. Neuro nonfocal patient moving all 4 extremity speech clear. Skin no rash Discharge Plan Discharge Anticipated Discharge Date/Time: 04/22/22 10:29 Patient Disposition: Home, Self-Care Discharge Diagnosis: Paroxysmal atrial fibrillation with RVR Atypical chest pain Referrals: Giovanna Garcia NP [Primary Care Provider] - 1 Week Discharge Medications: Continued omeprazole 40 mg capsule,delayed release(DR/EC) 1 cap PO BID@0630,1630 lorazepam 0.5 mg tablet 1 tab PO DAILY PRN (Reason: anxiety) verapamil 240 mg tablet extended release 1 tab PO BEDTIME Rx Instructions: TDD = 360 MG albuterol sulfate 90 mcg/actuation HFA aerosol inhaler 2 puff inhalation Q4H PRN (Reason: Shortness Of Breath) Eliquis 5 mg tablet 1 tab PO BID lamotrigine 100 mg Tablet 100 mg PO BID Qty: 60 0RF ipratropium-albuterol 0.5 mg-3 mg(2.5 mg base)/3 mL solution for nebulization 3 ml inhalation Q6H PRN (Reason: Wheezing) Anoro Ellipta 62.5-25 mcg/actuation blister with device 1 puff INHALATION DAILY fluticasone propionate 50 mcg/actuation [place],Suspension 1 spray INTRANASAL BEDTIME Rx Instructions: administer into each nostril hydrochlorothiazide 12.5 mg tablet 12.5 mg PO BEDTIME Protocol: Hold for SBP< HOLD for SBP < : 90 Discontinued verapamil 120 mg tablet extended release 1 tab PO BEDTIME Rx Instructions: TDD = 360 MG azithromycin 250 mg tablet 1 tab PO DAILY Discharge Orders: Discharge Order (Routine); Ordered 04/22/22 Ordered By: Tamela Garnica Diet: Advance to usual diet Activity on Discharge: As tolerated Stand Alone Forms: Patient Portal Discharge page Care Plan Goals: Please resume home dose of verapamil 360 mg daily, resume azithromycin You are not being discharged on Multaq since not covered by insurance Continue home oxygen as before [address] change in no be Health Concerns: Take all home medications as before Dr. Trevino the office will call you in next 1 week for follow-up Plan of Treatment: Outpatient follow-up with Cardiology call to make an appointment in 1 week Assessment: As above Patient Instructions: Angina (DC)
== END 2022-04-22 14:43 | disposition home or self-care (01) ==
LOC: HO.ED 04-21 01:22 → HO.EDOVER 04-21 01:37 → HO.S3 04-21 15:27
PROVIDERS: Admitting Provider Student in an Organized Health Care Education/Training Program; Emergency Provider Emergency Medicine; PCP Nurse Practitioner Family; Visit Provider Hospitalist
DX: I48.0 Paroxysmal atrial fibrillation (principal); R07.89 Other chest pain; R00.0 Tachycardia, unspecified; J44.9 Chronic obstructive pulmonary disease, unspecified; J96.21 Acute and chronic respiratory failure with hypoxia; Z20.822 Contact with and (suspected) exposure to COVID-19; I10 Essential (primary) hypertension; F41.1 Generalized anxiety disorder; C34.90 Malignant neoplasm of unspecified part of unspecified bronchus or lung; Z87.891 Personal history of nicotine dependence; Z79.01 Long term (current) use of anticoagulants; Z79.899 Other long term (current) drug therapy
CPT/HCPCS: 36415; 71045; 80048; 84443; 84484; 85025; 87635; 93005; 96374; 99218; 99285

== ENCOUNTER → 2022-05-10 10:40 | Outpatient (REF) | payer MEDICARE, SELFPAY ==
--- NOTE | 2022-05-10 10:48 | CA_ITS ---
Acquisition Time: 2022-05-10 11:06:54 Total Exercise Time: 00:02:43 Test Indications: CHEST PAIN Medications: Protocol: JACOB Max HR: 113 BPM 74% of Pred: 152 BPM Max BP: 160/070 mmHG Max Work Load: 4.6 METS Exercise stress test with exercise 2 min 43 Sec of Jacob protocol, with patient report that she can feel her body is going to collapse and she is going down , treadmill stopped, she had gait belt on as precaution and was immediately assisted to a sitting position in recliner. EKGs showed SR, without arrythmia, rate up to 98b/min. BP obtained once sitting was 160/70, sat 97%. She reported feeling sob and was given O2 3 liters. Color remained normal, skin dry. Pt reported feeling better after brief rest period. Echo images had been obtained prior to the start of exercise however not completed post exercise due to the above circumstances. Definity contrast used on rest images. Her condition was stable and back to baseline at test end. Test reviewed with Dr Trevino Referred By: Sumeet Trevino Overread By: JHONATAN DUMONT
== END ==
LOC: HO.CARD 10:40
PROVIDERS: Visit Provider Internal Medicine Cardiovascular Disease
DX: R07.9 Chest pain, unspecified (principal)
CPT/HCPCS: 93350; Q9957

== ENCOUNTER 2022-05-11 14:15 | Outpatient (REF) | payer MEDICARE, SELFPAY ==
--- NOTE | ~2022-05-11 | MR_ITS ---
EXAMINATION: MRI OF THE BRAIN WITHOUT CONTRAST CLINICAL INFORMATION: Seizure disorder. COMPARISON: CT scan of the head 04/02/2022. MRI scan of the brain [facility] 08/23/2021. MRI scan of the brain [facility] 10/08/2016. TECHNIQUE: MRI of the brain was obtained using routine sequences without contrast. FINDINGS: No diffusion abnormalities are identified to suggest an acute or subacute infarct. The study redemonstrates a T2/FLAIR hyperintense area ventral to the medulla on the left with minimal mass effect which measures 1.2 x 0.6 cm, and may demonstrate mild restricted diffusion. It appears smaller compared to prior imaging. No midline shift is seen. There is mild commensurate prominence of the ventricles and sulci consistent with diffuse volume loss. There are scattered areas of hyperintense T2 and FLAIR signal in the periventricular and subcortical white matter, which are most consistent with chronic microvascular ischemic changes. The hippocampi are symmetric in size and signal. No other extra-axial fluid collections or masses are seen. The brainstem and cerebellum are normal. No pathologic magnetic susceptibility artifact is identified on the gradient refocused acquisition. The craniovertebral junction, marrow signal, and midline structures are normal. The major intracranial flow-voids at the level of the [place] are preserved. The dural venous sinus flow-voids are maintained. The mastoid air cells are well-aerated. There are aerosolized secretions in the left sphenoid sinus and there is mucoperiosteal thickening in the bilateral ethmoid sinuses. MR/MR head/brain wo con IMPRESSION: 1. There are no acute bleeds or territorial infarcts. 2. The study redemonstrates an area of hyperintense T2/FLAIR signal ventral to the medulla to the left midline, which appears smaller compared to prior imaging. As previously described, this is nonspecific and may be consistent with a small arachnoid or epidermoid cyst. 3. There are chronic microvascular ischemic changes and there is diffuse volume loss.
== END 2022-05-11 14:16 | disposition home or self-care (01) ==
LOC: HO.MRI 14:15
PROVIDERS: Visit Provider Psychiatry & Neurology Neurology
DX: G40.909 Epilepsy, unspecified, not intractable, without status epilepticus (principal)
CPT/HCPCS: 70551

== ENCOUNTER 2022-05-23 11:05 | Outpatient (REF) | payer MEDICARE, SELFPAY ==
[2022-05-23 11:24] LABS: MANUAL DIFF FLAG NO
[2022-05-23 11:45] LABS: Basophils Absolute Auto 0.1 X10*3/uL (0.0-0.2); Basophils Percent Auto 1.1 % (0-2); Eosinophils Absolute Auto 0.3 X10*3/uL (0.0-0.4); Eosinophils Percent Auto 3.9 % (0-4); Hematocrit 42.8 % (37.0-47.0); Hemoglobin 14.3 g/dl (12.0-16.0); Imm Gran Abs Auto 0.01 X10*3/uL (0.00-0.03); Imm Gran Pct Auto 0.1 % (0.0-0.4); Lymphocytes Percent Auto 13.9 % (20-40); Mean Corpuscular HGB Conc 33.4 g/dl (31.0-35.0); Mean Corpuscular Hemoglobin 29.4 pg (27.0-33.0); Mean Corpuscular Volume 88.1 fL (80.0-98.0); Mean Platelet Volume 9.2 fL (9.4-12.3); Monocytes Absolute Auto 0.5 X10*3/uL (0.1-1.2); Neutrophils Absolute Auto 5.5 x10*3/uL (2.0-8.3); Platelet Count 304 X10*3/uL (160-400); Red Blood Count 4.86 X10*6/uL (4.20-5.50); Red Cell Distribution Width 12.5 % (11.0-16.0); White Blood Count 7.4 X10*3/uL (4.8-10.8)
[2022-05-23 11:48] LABS: INTERNATIONAL NORM RATIO 1.3 (0.9-1.1); Prothrombin Time 15.1 SEC (10.0-13.1)
[2022-05-23 12:09] LABS: Anion Gap 14 (12-20); Blood Urea Nitrogen 17 mg/dL (9-16); Calcium 9.9 mg/dL (8.4-10.2); Carbon Dioxide 31 mmol/L (22-29); Chloride 97 mmol/L (96-108); Estimated Glomerular Filt Rate > 60; Glucose Random 108 mg/dL (60-115); Potassium 4.1 mmol/L (3.3-5.1); Sodium 138 mmol/L (135-145)
== END 2022-05-23 11:06 | disposition home or self-care (01) ==
LOC: HO.LAB 11:05
PROVIDERS: PCP Nurse Practitioner Family; Visit Provider Internal Medicine Cardiovascular Disease
DX: R07.9 Chest pain, unspecified (principal); I48.0 Paroxysmal atrial fibrillation; R94.39 Abnormal result of other cardiovascular function study
CPT/HCPCS: 36415; 80048; 85025; 85610; 99212

== ENCOUNTER → 2022-06-22 15:40 | Outpatient (BNVA) | payer MEDICARE, SELFPAY | PROVIDERS: PCP Nurse Practitioner Family; Visit Provider Internal Medicine Cardiovascular Disease | DX: I48.0 Paroxysmal atrial fibrillation (principal); R07.9 Chest pain, unspecified | CPT/HCPCS: 99212 ==

== ENCOUNTER 2022-08-18 11:52 | Outpatient (REF) | payer MEDICARE, SELFPAY ==
[2022-08-18 15:47] LABS: Alanine Aminotransferase 9 U/L (0-31); Albumin Level 4.2 g/dL (3.5-5.0); Alkaline Phosphatase 106 U/L (39-117); Anion Gap 15 (12-20); Aspartate Amino Transferase 14 U/L (5-31); Bilirubin Direct 0.2 mg/dL (0.0-0.5); Bilirubin Total 0.4 mg/dL (0.0-1.0); Blood Urea Nitrogen 19 mg/dL (9-16); Calcium 9.1 mg/dL (8.4-10.2); Carbon Dioxide 32 mmol/L (22-29); Chloride 98 mmol/L (96-108); Estimated Glomerular Filt Rate > 60; Glucose Fasting 110 mg/dL (60-99); Potassium 3.9 mmol/L (3.3-5.1); Sodium 141 mmol/L (135-145); Total Protein 6.2 g/dL (6.5-8.0)
[2022-08-18 16:05] LABS: TSH reflex Free T4 1.59 uIU/mL (0.32-4.0)
== END 2022-08-18 11:53 | disposition home or self-care (01) ==
LOC: HO.WFDLDS 11:52
PROVIDERS: Visit Provider Hospitalist
DX: Z00.00 Encounter for general adult medical examination without abnormal findings (principal); R53.83 Other fatigue
CPT/HCPCS: 36415; 80053; 80076; 82248; 84443

== ENCOUNTER → 2022-10-20 14:43 | Outpatient (BNVA) | payer MEDICARE, SELFPAY | PROVIDERS: PCP Hospitalist; Referring Provider Hospitalist; Visit Provider Nurse Practitioner Family | DX: I48.0 Paroxysmal atrial fibrillation (principal); I10 Essential (primary) hypertension; R07.9 Chest pain, unspecified; J43.9 Emphysema, unspecified; Z98.890 Other specified postprocedural states; Z90.2 Acquired absence of lung [part of] | CPT/HCPCS: 93005; 99212 ==

== ENCOUNTER 2022-11-10 14:00 | Outpatient (RCR) | payer MEDICARE, SELFPAY | END 2022-12-14 11:57 | disposition home or self-care (01) | LOC: HO.PT 14:00 | PROVIDERS: Visit Provider Surgery | DX: R15.9 Full incontinence of feces (principal) | CPT/HCPCS: 97112; 97140; 97162 ==

== ENCOUNTER 2022-11-14 23:37 | Emergency (ER) | payer MEDICARE, SELFPAY ==
[2022-11-14 23:42] VITALS: BP 141/84; BP 152/48; PULSE 125; PULSE 130; RESP 24; TEMP 36.6; O2SAT 94; O2SAT 98; BMI 25.0
[2022-11-14 23:50] VITALS: BP 141/84; PULSE 131; RESP 23; TEMP 36.6; O2SAT 98
--- NOTE | 2022-11-15 00:09 | ECG_ITS ---
Test Reason : at fib Blood Pressure : / mmHG Vent. Rate : 091 BPM Atrial Rate : 091 BPM P-R Int : 164 ms QRS Dur : 080 ms QT Int : 356 ms P-R-T Axes : 074 072 093 degrees QTc Int : 437 ms Normal sinus rhythm ST & T wave abnormality, consider inferior ischemia ST & T wave abnormality, consider anterolateral ischemia Abnormal ECG When compared with ECG of 15-NOV-2022 00:01, Sinus rhythm has replaced Atrial fibrillation QT has shortened Referred By: Mason Jaime Electronically Signed By:Sumeet Trevino
[2022-11-15 00:10] VITALS: BP 142/76; PULSE 90; RESP 24; O2SAT 98
--- NOTE | 2022-11-15 00:13 | ED_ITS ---
HPI - Arrhythmia/Palpitations General Chief Complaint: Arrhythmia/Palpitations Stated Complaint: Dizziness with Palpitations Time Seen by Provider: 11/14/22 23:42 Source: patient Mode of arrival: ambulatory Limitations: no limitations History of Present Illness HPI narrative: Patient's history of paroxysmal AFib on Eliquis verapamil 240 mg and flecainide 50 mg twice daily had an episode of AFib in 05/03 when she was admitted today at 09:00 she had a episode AFib lasted for 20 minutes and then again at 22:00 today having AFib patient took her regular flecainide at 21:00 and took extra dose of 50 mg of flecainide at 22:15 without any response she feels weak and slightly dizzy heart rate fluctuating between 110-120 no chest pain no fever no chills no shortness of breath Related Data Home Medications Medication Instructions Recorded Confirmed albuterol sulfate 90 mcg/actuation 2 puff inhalation Q4H PRN 04/02/22 10/21/22 aerosol inhaler Shortness Of Breath fluticasone propionate 50 1 spray intranasal BEDTIME 04/21/22 10/21/22 mcg/actuation nasal spray,suspension ipratropium 0.5 mg-albuterol 3 mg 3 ml inhalation Q6H PRN Wheezing 04/21/22 10/21/22 (2.5 mg base)/3 mL nebulization soln umeclidinium 62.5 mcg-vilanterol 1 puff inhalation DAILY 04/21/22 10/21/22 25 mcg/actuation powdr for inhalation (Anoro Ellipta) omeprazole 40 mg capsule,delayed 40 mg PO BID@0630,1630 05/23/22 10/21/22 release flecainide 50 mg tablet 50 mg PO Q12H 06/22/22 10/21/22 tizanidine 4 mg tablet 4 mg PO BID PRN 08/18/22 10/21/22 Previous Rx's Medication Instructions Recorded lamotrigine 100 mg tablet 100 mg PO BID #60 tabs 04/04/22 montelukast 10 mg tablet 10 mg PO BEDTIME #30 tabs 09/12/22 (Singulair) diltiazem HCl 240 mg 240 mg PO DAILY #90 caps 10/21/22 capsule,extended release 24 hr hydrochlorothiazide 12.5 mg tablet 12.5 mg PO BEDTIME #90 tabs 10/27/22 rivaroxaban 20 mg tablet (Xarelto) 20 mg PO DAILY #30 tabs 10/27/22 doxycycline hyclate 100 mg capsule 100 mg PO BID 10 days #20 caps 11/14/22 prednisone 20 mg tablet 20 mg PO DAILY 8 days #12 tabs 11/14/22 Allergies Allergy/AdvReac Type Severity Reaction Status Date / Time bupropion [From Wellbutrin] Allergy Chest Pain Verified 11/14/22 11:43 ciprofloxacin Allergy Chest Pain Verified 11/14/22 11:43 prednisone Allergy Seizure Verified 11/14/22 13:10 Review of Systems Review of Systems: Yes all other systems are reviewed and are negative [facility] Past Medical History Medical History Abnormal EKG Afib Emphysema/COPD GERD (gastroesophageal reflux disease) HTN (hypertension) Seizure Upper respiratory infection Surgical History H/O wrist surgery History of cholecystectomy S/P partial lobectomy of lung Family History Family History Mother Small cell lung cancer Father Stomach cancer Brother Diabetes Social History Social History Household Members: Spouse, Family and None Housing: House Do you presently have visiting nurse or other home services: No Alcohol intake: current Alcohol intake frequency: does not drink Patient Tobacco Use Status: Former Tobacco user Quit Date: 2015 Years Smoked: 30 +/- Smoked in Last 30 Days: No Advance Directives: Yes Advance Directives on File: Yes Advance Directives Date on File: 04/21/22 service: No Current occupational status: retired Cognitive needs: No Hearing needs: No Vision needs: Yes Physical Exam Vital Signs: Vital Signs: Last Vital Signs Temp 97.9 F 11/14/22 23:50 Pulse 90 11/15/22 00:10 Resp 24 H 11/15/22 00:10 BP 142/76 H 11/15/22 00:10 Pulse Ox 98 11/15/22 00:10 O2 Del Method Room Air 11/15/22 00:10 O2 Flow Rate 2 11/15/22 00:10 Oxygen Flow Rate 2.5 11/14/22 23:42 BMI result Body Mass Index 25.0 Appearance: Alert. Oriented X3. No acute distress. Eyes: No pallor or icterus ENT: Pharynx normal. Oral Mucosa moist Neck: Normal inspection. Neck supple. CVS: Irregularly irregular heart rate tachycardic no murmur/rub Pulses normal. Respiratory: No respiratory distress. Equal air entry bilateral, no wheezin g/rales/rhonchi Abdomen: Soft and nontender. Bowel sounds are present, Skin: Skin warm and dry. Normal skin color. Normal skin turgor. Extremities: No lower extremity edema. No calf tenderness Neuro: Oriented X 3. No motor deficit. Medical Decision Making Medical Decision Making [facility] Narrative: Patient paroxysmal AFib on flecainide and verapamil had continues AFib since 22:00 patient took extra flecainide after arrival patient broke into normal sinus rhythm after 2 hours of flecainide. Case discussed with Dr. 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 11/15/22 00:23 11/15/22 00:23 Labs: Lab Results 11/15/22 11/15/22 11/15/22 Range/Units 00:23 00:23 00:23 WBC 6.9 (4.8-10.8) X10*3/uL RBC 4.77 (4.20-5.50) X10*6/uL Hgb 14.0 (12.0-16.0) g/dl Hct 42.4 (37.0-47.0) % MCV 88.9 (80.0-98.0) fL MCH 29.4 (27.0-33.0) pg MCHC 33.0 (31.0-35.0) g/dl RDW 13.4 (11.0-16.0) % Plt Count 236 (160-400) X10*3/uL MPV 9.4 (9.4-12.3) fL Immature Gran % (Auto) 0.4 (0.0-0.4) % Neut % (Auto) 80.6 H (45-73) % Lymph % (Auto) 10.7 L (20-40) % [place] % (Auto) 5.0 (2-11) % Eos % (Auto) 2.6 (0-4) % Baso % (Auto) 0.7 (0-2) % Lymph # (Auto) 0.7 L (1.2-4.9) X10*3/uL [place] # (Auto) 0.3 (0.1-1.2) X10*3/uL Eos # (Auto) 0.2 (0.0-0.4) X10*3/uL Baso # (Auto) 0.1 (0.0-0.2) X10*3/uL Abs Immat Gran (auto) 0.03 (0.00-0.03) X10*3/uL Absolute Neuts (auto) 5.5 (2.0-8.3) x10*3/uL Absolute Nucleated RBC 0.000 (0.0-0.012) X10*3/uL Nucleated RBC % (auto) 0.0 (0.0-0.2) /100WBC PT 12.6 (10.0-13.1) SEC INR 1.1 (0.9-1.1) Sodium 141 (135-145) mmol/L Potassium 3.4 (3.3-5.1) mmol/L Chloride 100 (96-108) mmol/L Carbon Dioxide 28 (22-29) mmol/L Anion Gap 16 (12-20) BUN 19 H (9-16) mg/dL Creatinine 0.87 (0.5-1.4) mg/dL Estim Creat Clear Calc 57.9 Estimated GFR > 60 Random Glucose 142 H (60-115) mg/dL Calcium 9.5 (8.4-10.2) mg/dL Magnesium 2.1 (1.6-2.6) mg/dL Troponin I High Sens (<3.5-17.0) ng/L 11/15/22 Range/Units 00:23 WBC (4.8-10.8) X10*3/uL RBC (4.20-5.50) X10*6/uL Hgb (12.0-16.0) g/dl Hct (37.0-47.0) % MCV (80.0-98.0) fL MCH (27.0-33.0) pg MCHC (31.0-35.0) g/dl RDW (11.0-16.0) % Plt Count (160-400) X10*3/uL MPV (9.4-12.3) fL Immature Gran % (Auto) (0.0-0.4) % Neut % (Auto) (45-73) % Lymph % (Auto) (20-40) % [place] % (Auto) (2-11) % Eos % (Auto) (0-4) % Baso % (Auto) (0-2) % Lymph # (Auto) (1.2-4.9) X10*3/uL [place] # (Auto) (0.1-1.2) X10*3/uL Eos # (Auto) (0.0-0.4) X10*3/uL Baso # (Auto) (0.0-0.2) X10*3/uL Abs Immat Gran (auto) (0.00-0.03) X10*3/uL Absolute Neuts (auto) (2.0-8.3) x10*3/uL Absolute Nucleated RBC (0.0-0.012) X10*3/uL Nucleated RBC % (auto) (0.0-0.2) /100WBC PT (10.0-13.1) SEC INR (0.9-1.1) Sodium (135-145) mmol/L Potassium (3.3-5.1) mmol/L Chloride (96-108) mmol/L Carbon Dioxide (22-29) mmol/L Anion Gap (12-20) BUN (9-16) mg/dL Creatinine (0.5-1.4) mg/dL Estim Creat Clear Calc Estimated GFR Random Glucose (60-115) mg/dL Calcium (8.4-10.2) mg/dL Magnesium (1.6-2.6) mg/dL Troponin I High Sens < 2.7 D (<3.5-17.0) ng/L Independent Interpretation I performed an independent interpretation of an: EKG Interpretation: Atrial fibrillation with ventricular rate of 108 beats per minute nonspecific ST T-wave changes no acute ischemia Discharge Plan Discharge Clinical Impression: PAF (paroxysmal atrial fibrillation) Patient Disposition: Home, Self-Care Instructions: A-fib (Atrial Fibrillation) (ED) Additional Instructions: Increase the dose of flecainide 100 mg twice daily Continue rest of her medication Follow-up with cylinder block hole reliner next week Report to the ER if recurrence of palpitation Prescriptions: No Action diltiazem HCl 240 mg capsule,extended release 24hr 240 mg PO DAILY Qty: 90 3RF hydrochlorothiazide 12.5 mg tablet 12.5 mg PO BEDTIME Qty: 90 3RF Xarelto 20 mg tablet 20 mg PO DAILY Qty: 30 5RF Rx Instructions: must administer with evening meal albuterol sulfate 90 mcg/actuation HFA aerosol inhaler 2 puff inhalation Q4H PRN (Reason: Shortness Of Breath) lamotrigine 100 mg Tablet 100 mg PO BID Qty: 60 0RF omeprazole 40 mg capsule,delayed release(DR/EC) 40 mg PO BID@0630,1630 ipratropium-albuterol 0.5 mg-3 mg(2.5 mg base)/3 mL solution for nebulization 3 ml inhalation Q6H PRN (Reason: Wheezing) Anoro Ellipta 62.5-25 mcg/actuation blister with device 1 puff INHALATION DAILY fluticasone propionate 50 mcg/actuation [place],Suspension 1 spray INTRANASAL BEDTIME Rx Instructions: administer into each nostril tizanidine 4 mg tablet 4 mg PO BID PRN montelukast [Singulair] 10 mg tablet 10 mg PO BEDTIME Qty: 30 2RF prednisone 20 mg tablet 20 mg PO DAILY 8 Days Qty: 12 0RF Rx Instructions: 2 tabs daily x 4 days, then 1 tab daily days 5-8 doxycycline hyclate 100 mg capsule 100 mg PO BID 10 Days Qty: 20 0RF flecainide 50 mg tablet 50 mg PO Q12H Interventions: ED Discharge Assessment Last Done: 11/15/22 01:09 Discharge Date/Time: 11/15/22 01:09
[2022-11-15 00:29] LABS: Basophils Absolute Auto 0.1 X10*3/uL (0.0-0.2); Basophils Percent Auto 0.7 % (0-2); Eosinophils Absolute Auto 0.2 X10*3/uL (0.0-0.4); Eosinophils Percent Auto 2.6 % (0-4); Hematocrit 42.4 % (37.0-47.0); Imm Gran Abs Auto 0.03 X10*3/uL (0.00-0.03); Imm Gran Pct Auto 0.4 % (0.0-0.4); Lymphocytes Absolute Auto 0.7 X10*3/uL (1.2-4.9); Lymphocytes Percent Auto 10.7 % (20-40); MANUAL DIFF FLAG NO; Mean Corpuscular Hemoglobin 29.4 pg (27.0-33.0); Mean Corpuscular Volume 88.9 fL (80.0-98.0); Mean Platelet Volume 9.4 fL (9.4-12.3); Monocytes Absolute Auto 0.3 X10*3/uL (0.1-1.2); Neutrophils Absolute Auto 5.5 x10*3/uL (2.0-8.3); Neutrophils Percent Auto 80.6 % (45-73); Platelet Count 236 X10*3/uL (160-400); Red Blood Count 4.77 X10*6/uL (4.20-5.50); Red Cell Distribution Width 13.4 % (11.0-16.0); White Blood Count 6.9 X10*3/uL (4.8-10.8)
[2022-11-15 00:35] LABS: INTERNATIONAL NORM RATIO 1.1 (0.9-1.1); Prothrombin Time 12.6 SEC (10.0-13.1)
[2022-11-15 00:46] LABS: Anion Gap 16 (12-20); Blood Urea Nitrogen 19 mg/dL (9-16); Calcium 9.5 mg/dL (8.4-10.2); Carbon Dioxide 28 mmol/L (22-29); Chloride 100 mmol/L (96-108); Creatinine Clr Calc Pharmacy 57.9; Estimated Glomerular Filt Rate > 60; Glucose Random 142 mg/dL (60-115); Magnesium 2.1 mg/dL (1.6-2.6); Potassium 3.4 mmol/L (3.3-5.1); Sodium 141 mmol/L (135-145)
[2022-11-15 00:51] LABS: Troponin-I High Sensitivity < 2.7 ng/L (<3.5-17.0)
--- NOTE | 2022-11-15 09:32 | ECG_ITS ---
Test Reason : PALPATATIONS Blood Pressure : / mmHG Vent. Rate : 108 BPM Atrial Rate : 000 BPM P-R Int : 000 ms QRS Dur : 074 ms QT Int : 370 ms P-R-T Axes : 000 062 133 degrees QTc Int : 495 ms Atrial fibrillation with rapid ventricular response ST & T wave abnormality, consider inferior ischemia ST & T wave abnormality, consider anterolateral ischemia Abnormal ECG When compared with ECG of 22-APR-2022 11:56, Significant changes have occurred Referred By: Mason Jaime Electronically Signed By:Sumeet Trevino
== END 2022-11-15 01:09 | disposition home or self-care (01) ==
PROVIDERS: Emergency Provider Internal Medicine; PCP Hospitalist
DX: I48.0 Paroxysmal atrial fibrillation (principal); Z87.891 Personal history of nicotine dependence; Z79.01 Long term (current) use of anticoagulants; Z79.899 Other long term (current) drug therapy
CPT/HCPCS: 36415; 80048; 83735; 84484; 85025; 85610; 93005; 99212; 99283; 99285

== ENCOUNTER 2022-12-19 10:17 | Outpatient (AMB) | payer MEDICARE, SELFPAY ==
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
[2022-12-19 11:29] VITALS: BP 120/76; PULSE 74; TEMP 36.7; O2SAT 97
== END 2022-12-19 12:48 | disposition home or self-care (01) ==
PROVIDERS: PCP Hospitalist; Visit Provider Physician Assistant
DX: R05.1 Acute cough (principal)
CPT/HCPCS: 99214

== ENCOUNTER 2022-12-19 11:56 | Outpatient (REF) | payer MEDICARE, SELFPAY | END 2022-12-19 11:57 | disposition home or self-care (01) | LOC: HO.HMGCX 11:56 | PROVIDERS: PCP Hospitalist; Visit Provider Physician Assistant | DX: R05.9 Cough, unspecified (principal) | CPT/HCPCS: 71046 ==

== ENCOUNTER 2023-02-02 09:13 | Outpatient (REF) | payer MEDICARE, SELFPAY ==
--- NOTE | ~2023-02-02 | CT_ITS ---
EXAMINATION: CT SOFT TISSUE NECK WITH CONTRAST CLINICAL INFORMATION: Left neck mass and dysphagia. COMPARISON: CT scan of the neck 09/27/2013. TECHNIQUE: Following the intravenous administration of 60 mL of Omnipaque 350 intravenous contrast, helical imaging was performed in the axial plane with generation of coronal and sagittal reformatted images. This CT examination was performed using dose optimization techniques as appropriate, variously including the following: *Automated exposure control *Adjustment of mA and/or kV according to patient size (this includes techniques or standardized protocols for targeted exams where dose is matched to indication/reason for exam; i.e. extremities or head) *Use of iterative reconstruction technique DLP: 239 mGy-cm FINDINGS: Noncontrast images with a BB marker in place were also obtained. There is no cervical lymphadenopathy. The parotid glands are homogeneous in attenuation. The submandibular glands are normal. There is effacement of the left piriform sinus without a discrete mass. The laryngeal structures are normal. The parapharyngeal fat is preserved. The carotid sheath vasculature opacifies normally. No extra mucosal soft tissue mass or fluid collection is seen. No retropharyngeal fluid collection is seen. The thyroid gland is normal in size; there are 4-5 mm low-density nodules bilaterally, which are not clinically significant. The superior mediastinum is unremarkable. The lung apices are clear. The mastoid air cells and visualized portions of the paranasal sinuses are well-aerated. The temporomandibular joints are normal. There is a torus palatinus. No periapical disease is identified. There are no acute osseous findings. There is minimal spondylosis and facet arthropathy in the cervical spine. The imaged portions of the brain parenchyma are unremarkable. CT/CT soft tissue neck w IV con IMPRESSION: 1. There is no cervical lymphadenopathy and no masses are demonstrated in the neck. 2. There is effacement of the left piriform sinus without a discrete mass. Correlate clinically.
[2023-02-02] MEDS: iohexoL 350 MG/ML 100 ML INFUS..BTL 60 ML IV (10:32)
[2023-02-02 13:03] LABS: Blood Urea Nitrogen 13 mg/dL (9-16); Estimated Glomerular Filt Rate > 60
[2023-02-03 07:16] LABS: Creatinine POC 0.8 mg/dL (0.5-1.4); GFR POC > 60
== END 2023-02-02 09:14 | disposition home or self-care (01) ==
LOC: HO.CT 09:13
PROVIDERS: PCP Hospitalist; Visit Provider Otolaryngology
DX: R13.10 Dysphagia, unspecified (principal); R22.1 Localized swelling, mass and lump, neck
CPT/HCPCS: 36415; 70491; 82565; 84520; Q9967

== ENCOUNTER 2023-02-09 07:19 | Outpatient (REF) | payer MEDICARE, SELFPAY ==
--- NOTE | ~2023-02-09 | FL_ITS ---
EXAMINATION: XR FLUOROSCOPY BARIUM SWALLOW WITH AIR CLINICAL INFORMATION: Episodic dysphasia hypopharyngeal phase. COMPARISON: 11/26/2015. CT soft tissue neck also reviewed dated 02/02/2023. TECHNIQUE: Standard technique fluoroscopic air contrast barium swallow was performed utilizing thick and thin barium with effervescent granules. Numerous fluoroscopic spot images were obtained. FINDINGS: Lateral cine views during patient's swallowing demonstrates normal oral pharyngeal, and hypopharyngeal phases, with normal epiglottic inversion, and soft palate elevation. No evidence of nasopharyngeal reflux, or laryngeal aspiration. Mild to moderate cricopharyngeal achalasia was evident. The hypopharyngeal structures otherwise appear normal. Minor pooling in the vallecula was noted which cleared upon subsequent swallow. On the second and third swallow, minor laryngeal penetration was evident extending to the false cords, which did not progress to the level of the true cords or subglottic region. Esophagus is mildly patulous. It is otherwise normal in contour. No evidence of stricture, mass, or mucosal lesion. The primary peristaltic wave was mildly attenuated, and followed by multiple and extensive tertiary contractions which were nonpropulsive, consistent with presbyesophagus. A small to moderate-sized type I hiatus hernia is present at the GE junction. Episodic gastroesophageal reflux was identified to the level of the aortic arch. Images of the stomach were somewhat suboptimal as the patient was unable to retain the effervescent granule gas for adequate gastric distention. The gastric folds appear prominent, which could be secondary to underdistention, or conversely represent gastritis. No definite ulceration or mass. There was no delay of contrast passage into the duodenal bulb and sweep. Stomach otherwise appeared normal. Images of the duodenal bulb, duodenal sweep, and proximal jejunum demonstrate no abnormalities. Cholecystectomy clips incidentally noted. FLUOROSCOPY TIME: 4.5 minutes 50 spot images obtained. DOSE AREA PRODUCT: 34.950 uGy-m2 (microgray-meter squared) FL/FL barium swallow with air IMPRESSION: 1. Mild laryngeal penetration on thick barium identified, without extension to the true cords. No subglottic aspiration. 2. Mild to moderate cricopharyngeal achalasia. 3. Episodic gastroesophageal reflux to the level of the aortic arch. 4. Small to moderate sized type I hiatus hernia. 5. Somewhat patulous appearing esophagus without mucosal abnormality, stricture, or mass. Disordered esophageal motility consistent with moderate presbyesophagus. 6. Perceived gastric fold thickening, possibly artifactual due to inability of the patient to retain the effervescent granule gas, or possibly representing gastritis. No ulceration or mass evident. 7. Normal duodenal bulb and sweep.
== END 2023-02-09 07:20 | disposition home or self-care (01) ==
LOC: HO.XRAY 07:19
PROVIDERS: PCP Internal Medicine; Visit Provider Otolaryngology
DX: R13.10 Dysphagia, unspecified (principal)
CPT/HCPCS: 74221

== ENCOUNTER → 2023-02-09 08:00 | Outpatient (BNV) | payer MEDICARE, SELFPAY | PROVIDERS: PCP Internal Medicine; Visit Provider Radiology Diagnostic Radiology | DX: R13.10 Dysphagia, unspecified (principal) | CPT/HCPCS: 74221 ==

== ENCOUNTER 2023-02-21 14:38 | Outpatient (AMB) | payer MEDICARE, SELFPAY ==
[2023-02-21 14:46] VITALS: BP 124/60; PULSE 73; O2SAT 96; BMI 24.9
--- NOTE | 2023-02-21 14:46 | A.OFFVIS_ITS ---
Intake Vital Signs 02/21/23 14:46 Height 5 ft 6 in Weight 154 lb 5.177 oz BMI 24.9 BP 124/60 Blood Pressure Location Rt brachial Position Sitting Pulse 73 Pulse Source Pulse Oximeter Pulse Oximetry (%) 96 Oxygen Delivery Method Room Air Intake Visit Reasons: COPD Allergies bupropion [From Wellbutrin] Allergy (Verified 02/21/23 14:49) Chest Pain ciprofloxacin Allergy (Verified 02/21/23 14:49) Chest Pain prednisone Allergy (Verified 02/21/23 14:49) Seizure HPI HPI Comments History of Present Illness Details The patient is here for pulmonary evaluation the patient is a 67 year woman with a known history of COPD in addition to lung cancer. Apparently she underwent a screening imaging study demonstrating a right upper lobe pulmonary malignant process. She referred to thoracic surgery where she underwent a right upper lobe lobectomy with curative intent. The patient was indeed confirmed to have cancer and she did not need any chemo or radiation. She did have her serial CT scans every 6 months and now moved over to every year. Back in March 2022 she was admitted to the hospital with palpitations cardiac arrhythmia and atrial fibrillation. During the hospitalization she did have a CTA which was personally by me demonstrating the postsurgical changes in addition to all other subcentimeter pulmonary nodules. in addition to this her CT scan demonstrates evidence of mosaic pattern suggesting of air trapping from her obstructive airway disease. Regards of her COPD the patient was placed on azithromycin which she is has been taking. Although, she is also been taking flecainide which is a concern as far as QT prolongation and severe cardiac arrhythmias. Therefore, the patient is okay stopping the medication at this time. She is using Breztri inhaler which has been affecting beneficial. Does not appear to be activating her atrial fibrillation. In addition to this the patient does have a hiatal hernia. She does sleep elevated and does take a PPI. Currently she is asymptomatic. [facility] Medical History (Updated 02/21/23 @ 23:25 by Samuel Redman MD) KRISTEN on CPAP Lung cancer Asthma-COPD overlap syndrome Abnormal EKG Seizure GERD (gastroesophageal reflux disease) Upper respiratory infection Afib Emphysema/COPD HTN (hypertension) Surgical History S/P partial lobectomy of lung H/O wrist surgery History of cholecystectomy Family History Mother Small cell lung cancer Father Stomach cancer Brother Diabetes Social History Household Members: Spouse, Family and None Housing: House Do you presently have visiting nurse or other home services: No Alcohol intake: current Alcohol intake frequency: does not drink Patient Tobacco Use Status: Former Tobacco user Quit Date: 2015 Years Smoked: 30 +/- Advance Directives Date on File: 04/21/22 service: No Current occupational status: retired Cognitive needs: No Hearing needs: No Vision needs: Yes Review of Systems Const Denies chills, Denies fatigue, Denies fever(s), Denies frequent falls, Denies weakness, Denies weight gain and Denies weight loss Eyes Denies change in vision ENT Denies dizziness and Denies throat swelling Card Denies chest pain, Denies leg edema, Denies lightheadedness, Denies palpitations, Denies dyspnea, Denies dyspnea on exertion, Denies orthopnea and Denies other (loss of consciousness) Resp Denies cough, Denies dyspnea and Denies dyspnea on exertion GI Denies hematochezia and Denies change in stool character Musc Denies abnormal gait, Denies muscle weakness, Denies numbness, Denies radiating pain into limb and Denies tingling Neuro Denies abnormal gait, Denies dizziness, Denies frequent falls, Denies numbness, Denies tingling and Denies weakness Endo Denies fatigue and Denies palpitations Aller/Immun Denies seasonal rhinorrhea and Denies throat swelling Physical Exam Vital Signs: Last Vital Signs Pulse 73 02/21/23 14:46 BP 124/60 02/21/23 14:46 Pulse Ox 96 02/21/23 14:46 Oxygen Delivery Method Room Air 02/21/23 14:46 BMI result Body Mass Index 24.9 Const General: cooperative, comfortable and no acute distress Orientation/consciousness: patient oriented x3 Chest Chest palpation & inspection: normal inspection of the chest Resp Effort & Inspection: normal respiratory effort Auscultation: diminished lung sounds Cardio Rate: regular rate Rhythm: regular rhythm Heart sounds: S1 normal heart sound present and S2 normal heart sound present Neuro General: patient oriented x3 Extrem General: Yes no pedal edema Assessment & Plan Assessment & Plan (1) Asthma-COPD overlap syndrome: Code(s): J44.9 - Chronic obstructive pulmonary disease, unspecified (2) Lung cancer: Code(s): C34.90 - Malignant neoplasm of unspecified part of unspecified bronchus or lung (3) KRISTEN on CPAP: Code(s): G47.33 - Obstructive sleep apnea (adult) (pediatric) Plan prednisone for poison ingrid decrease Breztri 1 puff BID GÓMEZ as needed Will request Xopenex for nebulizer medicine PFTs Serial CT chest as per Thoracic surgery sleep elevated discontinue Azithromycin while on Flecanaide reflux diet F/U 2-3 months Orders: Orders PFT pulmonary function test Today J44.9 - Chronic obstructive pulmonary disease, unspecified Medications: New prednisone PO daily; Take 2 tabs daily x 7 days, then 1 tabs daily x 7 days 14 days 21 tabs 0RF levalbuterol HCl 1.25 mg (3 mL) inhalation BID 30 days 180 mL 5RF J44.9 - Chronic obstructive pulmonary disease, unspecified Coding Level of Care Code New Pt Level 4 (60111) Diagnoses Asthma-COPD overlap syndrome J44.9 Lung cancer C34.90 KRISTEN on CPAP G47.33 Time Spent (min) 45
== END 2023-02-21 15:36 | disposition home or self-care (01) ==
PROVIDERS: PCP Hospitalist; Visit Provider Hospitalist
DX: J44.9 Chronic obstructive pulmonary disease, unspecified (principal); C34.90 Malignant neoplasm of unspecified part of unspecified bronchus or lung; G47.33 Obstructive sleep apnea (adult) (pediatric)
CPT/HCPCS: 99204

== ENCOUNTER → 2023-02-21 14:38 | Outpatient (BNVA) | payer MEDICARE, SELFPAY | PROVIDERS: PCP Hospitalist; Visit Provider Hospitalist | DX: J44.9 Chronic obstructive pulmonary disease, unspecified (principal); C34.11 Malignant neoplasm of upper lobe, right bronchus or lung; G47.33 Obstructive sleep apnea (adult) (pediatric); Z99.89 Dependence on other enabling machines and devices | CPT/HCPCS: 99202 ==

== ENCOUNTER 2023-02-22 09:16 | Outpatient (REF) | payer MEDICARE, SELFPAY ==
[2023-02-22 11:07] LABS: Anion Gap 12 (12-20); Blood Urea Nitrogen 14 mg/dL (9-16); Calcium 9.6 mg/dL (8.4-10.2); Carbon Dioxide 34 mmol/L (22-29); Chloride 99 mmol/L (96-108); Estimated Glomerular Filt Rate > 60; Glucose Random 116 mg/dL (60-115); Magnesium 2.3 mg/dL (1.6-2.6); Potassium 3.7 mmol/L (3.3-5.1); Sodium 141 mmol/L (135-145)
== END 2023-02-22 09:17 | disposition home or self-care (01) ==
LOC: HO.LAB 09:16
PROVIDERS: PCP Hospitalist; Referring Provider Hospitalist; Visit Provider Internal Medicine Cardiovascular Disease
DX: R94.31 Abnormal electrocardiogram [ECG] [EKG] (principal); I48.0 Paroxysmal atrial fibrillation
CPT/HCPCS: 36415; 80048; 83735; 93005; 99212

== ENCOUNTER 2023-02-22 09:16 | Outpatient (AMB) | payer MEDICARE, SELFPAY ==
--- NOTE | 2023-02-22 09:44 | A.OFFVIS_ITS ---
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: No Allergies bupropion [From Wellbutrin] Allergy (Verified 02/22/23 09:56) Chest Pain ciprofloxacin Allergy (Verified 02/22/23 09:56) Chest Pain prednisone Allergy (Verified 02/22/23 09:56) Seizure Medication List - Last Reconciled 02/22/23 by Sumeet Trevino MD albuterol sulfate 90 mcg/actuation 2 puffs inhalation Q4H PRN whezohexfb-ukponetl-iyordsttqt 160-9-4.8 mcg/actuation (Breztri Aerosphere) inhalations inhalation diltiazem HCl ER 240 mg PO DAILY flecainide 100 mg PO Q12H fluticasone propionate 50 mcg/actuation 1 spray intranasal BEDTIME hydrochlorothiazide 12.5 mg PO BEDTIME ipratropium-albuterol 0.5 mg-3 mg(2.5 mg base)/3 mL 3 mL inhalation Q6H PRN lamotrigine 100 mg PO BID levalbuterol HCl 1.25 mg (3 mL) inhalation BID 30 days montelukast (Singulair) 10 mg PO BEDTIME nebulizers As directed omeprazole 40 mg PO BID@0630,1630 Oxygen Home Use As directed prednisone PO daily; Take 2 tabs daily x 7 days, then 1 tabs daily x 7 days 14 days rivaroxaban (Xarelto) 20 mg PO DAILY HPI HPI Comments History of Present Illness Details 67-[facility] She has background history of paroxysmal atrial fibrillation. She had chest pains when she had atrial fibrillation. She had precordial T-wave inversions. We tried to a stress test but she collapsed while exercising without any ECG changes and etiology was unclear. After discussion she was taken cardiac catheterization. Cardiac catheterization showed normal filling pressures without any significant coronary disease. After discussion she was started on flecainide. She is returning and denying any palpitations. She is saying she is short of breath and will be seeing her manager call in a week. No fevers or chills. Otherwise stable clinically. 02/22/2023: She returns for follow-up. She is denying any chest discomfort. She has bronchitis and has been coughing. It appears she was receiving azithromycin for suppression of chronic bronchitis. Her recent QT interval was prolonged. She was taken off the azithromycin yesterday. EKG in the office is showing prolonged QT interval of 504 milliseconds. No dizziness or syncope. Otherwise taking medications regularly. [facility] Medical History (Updated 02/22/23 @ 10:11 by Sumeet Trevino MD) KRISTEN on CPAP Lung cancer Asthma-COPD overlap syndrome Abnormal EKG Seizure GERD (gastroesophageal reflux disease) Upper respiratory infection Afib Emphysema/COPD HTN (hypertension) Surgical History S/P partial lobectomy of lung H/O wrist surgery History of cholecystectomy Family History Mother Small cell lung cancer Father Stomach cancer Brother Diabetes Social History Household Members: Spouse, Family and None Housing: House Do you presently have visiting nurse or other home services: No Alcohol intake: current Alcohol intake frequency: does not drink Patient Tobacco Use Status: Former Tobacco user Quit Date: 2015 Years Smoked: 30 +/- Advance Directives Date on File: 04/21/22 service: No Current occupational status: retired Cognitive needs: No Hearing needs: No Vision needs: Yes Review of Systems ENT Reports dizziness Card Denies chest pain, Denies chest pain at rest, Denies chest pain with activity, Denies rapid heart rate, Denies pedal edema, Denies edema, Denies leg edema, Denies lightheadedness, Denies palpitations, Denies dyspnea, Denies dyspnea on exertion and Denies orthopnea Resp Denies cough, Denies dyspnea and Denies dyspnea on exertion GI Denies hematochezia and Denies change in stool character Musc Denies abnormal gait, Reports limited range of motion, Reports muscle cramps, Denies muscle weakness, Denies numbness, Denies radiating pain into limb, Denies stiffness and Denies tingling Neuro Denies abnormal gait, Reports dizziness, Denies numbness and Denies tingling Endo Denies palpitations Physical Exam Vital Signs: Last Vital Signs Pulse 73 02/22/23 09:45 BP 120/60 02/22/23 09:45 BMI result Body Mass Index 24.8 GENERAL APPEARANCE: in no acute distress, pleasant. NECK: no carotid bruit, no jugular venous distention. SKIN: Poison ingrid over the arms and legs. HEART: no murmurs, regular rate and rhythm. LUNGS: clear to auscultation bilaterally. ABDOMEN: soft, nontender. EXTREMITIES: no edema. PERIPHERAL PULSES: equal. NEUROLOGIC: No gross deficits, AAO X 3 Office Procedures EKG Details: Sinus rhythm 73 beats per minute, normal axis, nonspecific T-wave changes, QTC prolonged at 504 milliseconds. [id number], Complete Assessment & Plan Assessment & Plan (1) Prolonged QT interval: Code(s): R94.31 - Abnormal electrocardiogram [ECG] [EKG] (2) PAF (paroxysmal atrial fibrillation): Code(s): I48.0 - Paroxysmal atrial fibrillation (3) Abnormal EKG: Code(s): R94.31 - Abnormal electrocardiogram [ECG] [EKG] Plan Pleasant 67 year female who is here for follow-up. She has background history of paroxysmal atrial fibrillation. She has been on flecainide, diltiazem and rivaroxaban. She apparently was receiving the thrombi seen and probably due to interaction between flecainide and azithromycin she has prolonged QT interval. This should be avoided in the future. She is also should not take any levofloxacin or ciprofloxacin. All medication interaction should be checked before prescribing any medications for her. I think the safest drug for her is doxycycline in case she has bronchitis. Will check labs to rule out any hypokalemia and hypomagnesemia. Overall clinically stable. Thank you for allowing me to participate in the care of your patient. Please f eel free to contact me if you have any questions. Orders: Orders Magnesium Today R94.31 - Abnormal electrocardiogram [ECG] [EKG] Basic Metabolic Panel Today R94.31 - Abnormal electrocardiogram [ECG] [EKG] Coding Level of Care Code Est Pt Level 4 (40684) Diagnoses Prolonged QT interval R94.31 PAF (paroxysmal atrial fibrillation) I48.0 Abnormal EKG R94.31 CPT Codes EKG - CPT: 99161-[id number], Complete ([id number])
[2023-02-22 09:45] VITALS: BP 120/60; PULSE 73; BMI 24.8
== END 2023-02-22 10:10 | disposition home or self-care (01) ==
PROVIDERS: PCP Hospitalist; Referring Provider Hospitalist; Visit Provider Internal Medicine Cardiovascular Disease
DX: R94.31 Abnormal electrocardiogram [ECG] [EKG] (principal); I48.0 Paroxysmal atrial fibrillation
CPT/HCPCS: 93010; 99214

== ENCOUNTER 2023-03-15 09:38 | Outpatient (AMB) | payer MEDICARE, SELFPAY ==
--- NOTE | 2023-03-15 11:03 | MHC.OFFWIV ---
Intake Vital Signs 03/15/23 11:10 Weight 69.853 kg BP 132/72 Blood Pressure Location Rt brachial Position Sitting Pulse 78 Pulse Source Pulse Oximeter Pulse Oximetry (%) 93 Oxygen Delivery Method Room Air Intake Visit Reasons: EP-Shortness of breath Intake Note: Patient here for upper resp issues, SOB and cough which has been present for a couple days now. Patient Tobacco Use Status: Former Tobacco user Quit Date: 2015 Allergies bupropion [From Wellbutrin] Allergy (Verified 03/15/23 11:11) Chest Pain ciprofloxacin Allergy (Verified 03/15/23 11:11) Chest Pain prednisone Allergy (Verified 03/15/23 11:11) Seizure Do you need a note to return to daycare/school/sports/work: No HPI HPI Comments History of Present Illness Details 1129 67 year old female hx of lobectomy, copd, lung ca presents w/ sob, fatigue, malaise, myalgia X few days worsening. Patient reports at home her oxygen saturation is usually in mid 90s, she wears 2 L of nasal cannula at night, she has been saturating in the mid to high 80s particularly with ambulation. Also complaining of productive cough. Patient reports her breathing has been very labored and has left-sided chest pain. Physical exam with significant crackles to bilateral lower lobes, diminished breath sounds, patient is ambulatory saturation at rest 93%, with ambulation she has 86% with labored breathing, patient had to sit down and put on her nasal cannula. Concerns for possible pneumonia versus viral illness versus CHF versus chronic lung disease. [place] [facility] Medical History KRISTEN on CPAP Lung cancer Asthma-COPD overlap syndrome Abnormal EKG Seizure GERD (gastroesophageal reflux disease) Upper respiratory infection Afib Emphysema/COPD HTN (hypertension) Surgical History S/P partial lobectomy of lung H/O wrist surgery History of cholecystectomy Family History Mother Small cell lung cancer Father Stomach cancer Brother Diabetes Social History Household Members: Spouse, Family and None Housing: House Do you presently have visiting nurse or other home services: No Alcohol intake: current Alcohol intake frequency: does not drink Patient Tobacco Use Status: Former Tobacco user Quit Date: 2015 Years Smoked: 30 +/- Advance Directives Date on File: 04/21/22 service: No Current occupational status: retired Cognitive needs: No Hearing needs: No Vision needs: Yes Review of Systems Const Details: Constitutional : No Weight loss, No Fever, No Chills, + Fatigue, + Malaise ENT/Mouth : No sore throat, No Rhinorrhea Eyes: No Eye Pain, No Swelling, No Redness Cardiovascular : + Chest Pain, + SOB, + Dyspnea on Exertion, No Orthopnea, No Edema, No Palpitations Respiratory : No Cough, No Sputum, No Wheezing Gastrointestinal : No Nausea, No Vomiting, No Diarrhea, No Constipation, No abdominal Pain, No Hematochezia, No Melena Genitourinary : No Dysuria, No Urinary Frequency, No Hematuria, Musculoskeletal : No joint pain, No Myalgias, No Joint Swelling Skin : No Skin Lesions, No rash Neuro : No Weakness, No Numbness, No Dizziness, No Headache Psych : No Anxiety/Panic, No Depression All other systems reviewed and are negative All systems reviewed & are unremarkable except as noted in HPI and below Physical Exam Vital Signs: Last Vital Signs Pulse 78 03/15/23 11:10 BP 132/72 03/15/23 11:10 Pulse Ox 93 03/15/23 11:10 Oxygen Delivery Method Room Air 03/15/23 11:10 vss Became hypoxic with ambulation with labored breathing Appearance: Alert.? Oriented X3.? Moderate acute distress.? Head: Normocephalic, atraumatic, no step-offs or deformities Eyes: Pupils equal, round and reactive to light.? ENT: Pharynx normal.? Neck: Normal inspection.? Neck supple.? CVS: Normal heart rate and rhythm.? Pulses normal.? Respiratory: Moderate respiratory distress.? Breath sounds significant crackles to bilateral lower lobes, diminished breath sounds, patient is ambulatory saturation at rest 93%, with ambulation she has 86% with labored breathing, patient had to sit down and put on her nasal cannula..? Abdomen: Soft and nontender.? Skin: Skin warm and dry.? Normal skin color.? Normal skin turgor.? Extremities: No lower extremity edema.? No calf ttp. 5/5 strength to bilateral upper and lower extremities Neuro: Oriented X 3.? No motor deficit.? No sensory deficit. CN 2-12 intact Assessment & Plan Assessment & Plan (1) Hypoxia: Code(s): R09.02 - Hypoxemia (2) Shortness of breath: Code(s): R06.02 - Shortness of breath Plan patient to go via ambulance [place] [facility] Coding Level of Care Code Est Pt Level 3 (66016) Diagnoses Hypoxia R09.02 Shortness of breath R06.02
[2023-03-15 11:10] VITALS: BP 132/72; PULSE 78; O2SAT 93
== END 2023-03-15 12:22 | disposition home or self-care (01) ==
PROVIDERS: PCP Internal Medicine; Visit Provider Physician Assistant
DX: R09.02 Hypoxemia (principal); R06.02 Shortness of breath
CPT/HCPCS: 99213

== ENCOUNTER 2023-03-15 11:58 | Emergency (ER) | payer MEDICARE, SELFPAY ==
--- NOTE | 2023-03-15 | ECG_ITS ---
Test Reason : SOB Blood Pressure : / mmHG Vent. Rate : 076 BPM Atrial Rate : 076 BPM P-R Int : 174 ms QRS Dur : 084 ms QT Int : 394 ms P-R-T Axes : 074 078 075 degrees QTc Int : 443 ms Normal sinus rhythm Nonspecific ST and T wave abnormality Abnormal ECG When compared with ECG of 15-NOV-2022 00:32, T wave inversion no longer evident in Inferior leads T wave inversion less evident in Anterolateral leads Referred By: Generic ED Physician Electronically Signed By:TOÑO JIMENEZ
--- NOTE | ~2023-03-15 | XR_ITS ---
EXAMINATION: XR CHEST CLINICAL INFORMATION: Reason for Exam cough COMPARISON: Chest radiograph 12/19/2022 TECHNIQUE: One view of the chest FINDINGS: Lines and tubes: EKG leads overlie the patient. Clear lungs. No pleural effusion. No pneumothorax. Unchanged cardiomediastinal silhouette. XR/XR chest 1V IMPRESSION: * Clear lungs.
[2023-03-15 12:07] VITALS: BP 148/85; BP 150/69; PULSE 77; PULSE 80; RESP 23; TEMP 36.8; O2SAT 95; O2SAT 99; BMI 26.7
[2023-03-15 12:10] VITALS: RESP 23
[2023-03-15 12:51] LABS: MANUAL DIFF FLAG NO
[2023-03-15 12:55] VITALS: BP 146/70; PULSE 75; RESP 27; O2SAT 96
[2023-03-15 12:58] LABS: Basophils Percent Auto 0.3 % (0-2); Eosinophils Absolute Auto 0.3 X10*3/uL (0.0-0.4); Eosinophils Percent Auto 2.6 % (0-4); Hematocrit 38.8 % (37.0-47.0); Hemoglobin 12.9 g/dl (12.0-16.0); Imm Gran Abs Auto 0.04 X10*3/uL (0.00-0.03); Imm Gran Pct Auto 0.3 % (0.0-0.4); Lymphocytes Percent Auto 8.5 % (20-40); Mean Corpuscular HGB Conc 33.2 g/dl (31.0-35.0); Mean Corpuscular Volume 90.2 fL (80.0-98.0); Mean Platelet Volume 9.1 fL (9.4-12.3); Monocytes Absolute Auto 0.6 X10*3/uL (0.1-1.2); Monocytes Percent Auto 4.9 % (2-11); Neutrophils Absolute Auto 9.6 x10*3/uL (2.0-8.3); Neutrophils Percent Auto 83.4 % (45-73); Platelet Count 282 X10*3/uL (160-400); White Blood Count 11.5 X10*3/uL (4.8-10.8)
[2023-03-15 13:07] LABS: Alanine Aminotransferase 6 U/L (0-31); Albumin Level 4.2 g/dL (3.5-5.0); Alkaline Phosphatase 128 U/L (39-117); Anion Gap 15 (12-20); Aspartate Amino Transferase 12 U/L (5-31); Bilirubin Total 0.6 mg/dL (0.0-1.0); Blood Urea Nitrogen 14 mg/dL (9-16); Calcium 9.9 mg/dL (8.4-10.2); Carbon Dioxide 31 mmol/L (22-29); Chloride 102 mmol/L (96-108); Creatinine Clr Calc Pharmacy 71.4; Estimated Glomerular Filt Rate > 60; Glucose Random 97 mg/dL (60-115); Magnesium 2.2 mg/dL (1.6-2.6); Potassium 3.5 mmol/L (3.3-5.1); Sodium 144 mmol/L (135-145); Total Protein 7.1 g/dL (6.5-8.0)
[2023-03-15 13:10] LABS: INTERNATIONAL NORM RATIO 1.5 (0.9-1.1); Prothrombin Time 18.8 SEC (11.1-13.3)
--- NOTE | 2023-03-15 13:11 | ED_ITS ---
HPI - SOB/Dyspnea General Chief Complaint: Dyspnea Stated Complaint: SOB Time Seen by Provider: 03/15/23 13:06 Source: patient Limitations: no limitations History of Present Illness HPI Narrative: This is a 67 years old female with history of COPD O2 dependent presented emergency department with a chief complaint of shortness of breath cough congestion for about 3 days. Denies any fever chills vomiting and diarrhea.She was referred to [facility] by Urgent Care MD elicited complaint: shortness of breath and cough Pertinent past history: COPD Onset (ago): day(s) (3) Timing: constant Severity: moderate Exacerbating factors: nothing Known history of: COPD Associated symptoms: denies other symptoms Related Data Home oxygen amount: 2 liters Home Medications Medication Instructions Recorded Confirmed albuterol sulfate 90 mcg/actuation 2 puff inhalation Q4H PRN 04/02/22 02/22/23 aerosol inhaler Shortness Of Breath fluticasone propionate 50 1 spray intranasal BEDTIME 04/21/22 02/22/23 mcg/actuation nasal spray,suspension ipratropium 0.5 mg-albuterol 3 mg 3 ml inhalation Q6H PRN Wheezing 04/21/22 02/22/23 (2.5 mg base)/3 mL nebulization soln omeprazole 40 mg capsule,delayed 40 mg PO BID@0630,1630 05/23/22 02/22/23 release Oxygen Home Use 02/21/23 02/22/23 budesonide 160 mcg-glycopyr 9 inh inhalation 02/21/23 02/22/23 mcg-formot 4.8 mcg/actuation HFA inhaler (Breztri Aerosphere) diltiazem HCl 240 mg capsule,24 240 mg PO DAILY 02/21/23 02/22/23 hr,extended release flecainide 100 mg tablet 100 mg PO Q12H 02/21/23 02/22/23 nebulizers 02/21/23 02/22/23 Previous Rx's Medication Instructions Recorded lamotrigine 100 mg tablet 100 mg PO BID #60 tabs 04/04/22 hydrochlorothiazide 12.5 mg tablet 12.5 mg PO BEDTIME #90 tabs 10/27/22 rivaroxaban 20 mg tablet (Xarelto) 20 mg PO DAILY #30 tabs 10/27/22 levalbuterol HCl 1.25 mg/3 mL 1.25 mg (3 mL) inhalation BID 30 02/21/23 solution for nebulization days #180 mL doxycycline monohydrate 100 mg 100 mg PO BID #14 caps 03/15/23 capsule prednisone 20 mg tablet 60 mg (3 x 20 mg) PO DAILY #12 tabs 03/15/23 Allergies Allergy/AdvReac Type Severity Reaction Status Date / Time bupropion [From Wellbutrin] Allergy Chest Pain Verified 03/15/23 12:10 ciprofloxacin Allergy Chest Pain Verified 03/15/23 12:10 prednisone Allergy Seizure Verified 03/15/23 12:10 Review of Systems 2 Constitutional: Constitutional: Reports no additional constitutional complaints ENT: Reports system reviewed and no additional complaints, except as documented Cardiovascular: Cardiovascular: Reports no additional cardiovascular complaints Respiratory: Respiratory: Reports chest congestion [facility] Past Medical History Medical History KRISTEN on CPAP Lung cancer Asthma-COPD overlap syndrome Abnormal EKG Seizure GERD (gastroesophageal reflux disease) Upper respiratory infection Afib Emphysema/COPD HTN (hypertension) Surgical History S/P partial lobectomy of lung H/O wrist surgery History of cholecystectomy Family History Family History Mother Small cell lung cancer Father Stomach cancer Brother Diabetes Social History Social History Household Members: Spouse, Family and None Housing: House Do you presently have visiting nurse or other home services: No Alcohol intake: current Alcohol intake frequency: does not drink Patient Tobacco Use Status: Former Tobacco user Quit Date: 2015 Years Smoked: 30 +/- Smoked in Last 30 Days: No Use of substances other than those prescribed or required for medical reasons: No Advance Directives: Yes Advance Directives on File: Yes Advance Directives Date on File: 04/21/22 service: No Current occupational status: retired Cognitive needs: No Hearing needs: No Vision needs: Yes Physical Exam 2 Vital Signs: Vital Signs: Last Vital Signs Temp 98.2 F 03/15/23 12:07 Pulse 78 03/15/23 13:28 Resp 20 03/15/23 13:28 BP 146/70 H 03/15/23 12:55 Pulse Ox 96 03/15/23 12:55 O2 Del Method Nasal Cannula 03/15/23 12:55 O2 Flow Rate 1 03/15/23 12:55 BMI result Body Mass Index 26.7 Const: General: cooperative Nutritional Appearance: well nourished O rientation/consciousness: patient oriented x3 Limitations: no limitations HEENT: Head: Yes normal to inspection General nose exam: Normal nares present Mouth: Normal oral and palatal mucosa present Teeth and gingiva: d entition normal Throat: Yes posterior oropharynx normal Neck: Neck: Yes normal visual inspection and Yes full ROM Chest: Chest palpation & inspection: normal inspection of the chest Resp: Other: decrease breath sounds Effort & Inspection: able to speak in complete sentences Auscultation: r honchi Cardio: Jugular venous distension: no JVD Rate: regular rate Rhythm: r egular rhythm GI: Inspection: Yes normal to inspection Palpation (GI): Soft to palpation, not firm and nontender Skin: General skin exam: no rashes or lesions noted and elasticity normal L esions: no lesions Rashes: no rashes Neuro: General: patient oriented x3 Extrem: General: Yes full ROM and Yes capillary refill normal Course Reevaluation(s) Reevaluation #1: I re-examined the patient at this time she is doing better chest x-ray was negative she received the albuterol in the emergency department prednisone I think it is reasonable to discharge her home on prednisone and doxycycline she is very comfortable with the plan of care Time: 15:34 Medications Administered Discontinued Medications Generic Name Dose Route Start Last Admin Trade Name Freq PRN Reason Stop Dose Admin Albuterol Sulfate 2.5 mg/ 5 mg 03/15/23 13:24 03/15/23 13:27 Albuterol Sulfate 2.5 mg INHALE 03/15/23 13:25 5 mg ONCE ONE Administration Prednisone 60 mg 03/15/23 13:15 03/15/23 13:23 Prednisone 20 Mg Tablet PO 03/15/23 13:16 60 mg ONCE ONE Administration Medical Decision Making Medical Decision Making [facility] Narrative: presented with SOb will get CXR/labs Differential Diagnosis Differential Diagnoses: The differential diagnosis associated with the presentation includes pneumonia/COPD EX?Bronchitis Admission/Observation Consideration of admission/observation: Escalation of care including admission/observation considered Lab Data [facility] Lab Attestation statement: I reviewed the patient's lab results. 03/15/23 12:45 03/15/23 12:45 Labs: Lab Results 03/15/23 03/15/23 Range/Units 12:45 12:56 WBC 11.5 H (4.8-10.8) X10*3/uL RBC 4.30 (4.20-5.50) X10*6/uL Hgb 12.9 (12.0-16.0) g/dl Hct 38.8 (37.0-47.0) % MCV 90.2 (80.0-98.0) fL MCH 30.0 (27.0-33.0) pg MCHC 33.2 (31.0-35.0) g/dl RDW 13.0 (11.0-16.0) % Plt Count 282 (160-400) X10*3/uL MPV 9.1 L (9.4-12.3) fL Immature Gran % (Auto) 0.3 (0.0-0.4) % Neut % (Auto) 83.4 H (45-73) % Lymph % (Auto) 8.5 L (20-40) % Sunflower % (Auto) 4.9 (2-11) % Eos % (Auto) 2.6 (0-4) % Baso % (Auto) 0.3 (0-2) % Lymph # (Auto) 1.0 L (1.2-4.9) X10*3/uL Sunflower # (Auto) 0.6 (0.1-1.2) X10*3/uL Eos # (Auto) 0.3 (0.0-0.4) X10*3/uL Baso # (Auto) 0.0 (0.0-0.2) X10*3/uL Abs Immat Gran (auto) 0.04 H (0.00-0.03) X10*3/uL Absolute Neuts (auto) 9.6 H (2.0-8.3) x10*3/uL Absolute Nucleated RBC 0.000 (0.0-0.012) X10*3/uL Nucleated RBC % (auto) 0.0 (0.0-0.2) /100WBC PT 18.8 H (11.1-13.3) SEC INR 1.5 H (0.9-1.1) APTT 46.4 H (26.0-36.4) SEC Sodium 144 (135-145) mmol/L Potassium 3.5 (3.3-5.1) mmol/L Chloride 102 (96-108) mmol/L Carbon Dioxide 31 H (22-29) mmol/L Anion Gap 15 (12-20) BUN 14 (9-16) mg/dL Creatinine 0.78 (0.5-1.4) mg/dL Estim Creat Clear Calc 71.4 Estimated GFR > 60 Random Glucose 97 (60-115) mg/dL Calcium 9.9 (8.4-10.2) mg/dL Magnesium 2.2 (1.6-2.6) mg/dL Total Bilirubin 0.6 (0.0-1.0) mg/dL AST 12 (5-31) U/L ALT 6 (0-31) U/L Alkaline Phosphatase 128 H (39-117) U/L Troponin I High Sens < 2.7 (<3.5-17.0) ng/L Total Protein 7.1 (6.5-8.0) g/dL Albumin 4.2 (3.5-5.0) g/dL Urine Color Dark Yellow Urine Appearance Clear Urine pH 5.5 (5.0-9.0) Ur Specific [place] 1.025 (1.005-1.025) Urine Protein Trace (Neg-Trace) mg/dL Urine Glucose (UA) Negative (Negative) mg/dL Urine Ketones Negative (Negative) mg/dL Urine Blood Trace H (Negative) Urine Nitrite Negative (Negative) Ur Leukocyte Esterase Trace H (Negative) Urine RBC 6-10 H (0-2) /HPF Urine WBC 0-5 (0-5) /HPF Ur Squamous Epith Cells 11-20 (0-2) /HPF Urine Bacteria None Seen (None Seen) Hyaline Casts 0-2 (0-2) /LPF Influenza Type A (PCR) NEGATIVE (Negative) Influenza Type B (PCR) NEGATIVE (Negative) RSV RNA Qual (PCR) NEGATIVE (Negative) SARS-CoV-2 RNA (RT-PCR) NEGATIVE (Negative) Independent Interpretation I performed an independent interpretation of an: Plain X-Ray Interpretation: normal Independent Historian Clinical information obtained from an independent historian. History obtained from or confirmed by: Spouse External Record Review External record reviewed: Outpatient record Urgent care visit Today Chronic Conditions Patient?s care impacted by: Other (COPD) Discharge Plan Discharge Clinical Impression: COPD exacerbation Patient Disposition: Home, Self-Care Instructions: COPD (Chronic Obstructive Pulmonary Disease) (DC) Prescriptions: New prednisone 20 mg tablet 60 mg PO DAILY Qty: 12 0RF doxycycline monohydrate 100 mg capsule 100 mg PO BID Qty: 14 0RF No Action hydrochlorothiazide 12.5 mg tablet 12.5 mg PO BEDTIME Qty: 90 3RF Xarelto 20 mg tablet 20 mg PO DAILY Qty: 30 5RF Rx Instructions: must administer with evening meal albuterol sulfate 90 mcg/actuation HFA aerosol inhaler 2 puff inhalation Q4H PRN (Reason: Shortness Of Breath) lamotrigine 100 mg Tablet 100 mg PO BID Qty: 60 0RF omeprazole 40 mg capsule,delayed release(DR/EC) 40 mg PO BID@0630,1630 ipratropium-albuterol 0.5 mg-3 mg(2.5 mg base)/3 mL solution for nebulization 3 ml inhalation Q6H PRN (Reason: Wheezing) fluticasone propionate 50 mcg/actuation Frost,Suspension 1 spray INTRANASAL BEDTIME Rx Instructions: administer into each nostril diltiazem HCl 240 mg capsule,extended release 24 hr 240 mg PO DAILY flecainide 100 mg tablet 100 mg PO Q12H Rx Instructions: New dose. (DME) [place]izers [facility] [place] .Route Rx Instructions: As directed Breztri Aerosphere 160-9-4.8 mcg/actuation HFA aerosol inhaler inhalation (DME) Oxygen Home Use Kit See Rx Instructions .Route Rx Instructions: As directed levalbuterol HCl 1.25 mg/3 mL solution for nebulization 1.25 mg inhalation BID 30 Days Qty: 180 5RF
[2023-03-15 13:12] LABS: Partial Thromboplastin Time 46.4 SEC (26.0-36.4)
[2023-03-15 13:14] LABS: Troponin-I High Sensitivity < 2.7 ng/L (<3.5-17.0)
[2023-03-15 13:17] LABS: Appearance Urine Clear; Color Urine Dark Yellow; Glucose Urine UA Negative (Negative); Leukocyte Esterase Urine Trace (Negative); Nitrite Urine Negative (Negative); PH 5.5 (5.0-9.0); Specific Gravity - Urine 1.025 (1.005-1.025); UMIC TRIGGER UACC YES; Urine Blood Trace (Negative); Urine Ketones Negative (Negative); Urine Protein Trace mg/dL (Neg-Trace)
[2023-03-15 13:23] LABS: Bacteria Urine None Seen (None Seen); Hyaline Casts Urine 0-2 /LPF (0-2); WBC Urine 0-5 /HPF (0-5)
[2023-03-15] MEDS: predniSONE 20 MG TABLET 60 MG PO (13:23)
[2023-03-15] MEDS: Albuterol Sulfate 2.5 MG, Albuterol Sulfate (0.083%) 2.5 MG 5 MG INHALE (13:27)
[2023-03-15 13:28] VITALS: PULSE 78; RESP 20; O2SAT 97
[2023-03-15 13:29] LABS: Influenza A PCR NEGATIVE (Negative); Influenza B PCR NEGATIVE (Negative); Resp Syncy Virus RNA Qual PCR NEGATIVE (Negative); SARS COV2 PCR INHOUSE NEGATIVE (Negative)
== END 2023-03-15 16:45 | disposition home or self-care (01) ==
PROVIDERS: Physician Assistant Medical; Emergency Provider Emergency Medicine
DX: R06.02 Shortness of breath (principal); J44.9 Chronic obstructive pulmonary disease, unspecified; J45.20 Mild intermittent asthma, uncomplicated; R94.31 Abnormal electrocardiogram [ECG] [EKG]; Z20.822 Contact with and (suspected) exposure to COVID-19; Z20.828 Contact with and (suspected) exposure to other viral communicable diseases; Z99.81 Dependence on supplemental oxygen; Z87.891 Personal history of nicotine dependence; Z79.899 Other long term (current) drug therapy
CPT/HCPCS: 0241U; 71045; 80053; 81001; 83735; 84484; 85025; 85610; 85730; 93005; 94640; 99284; 99285

== ENCOUNTER 2023-03-20 09:49 | Outpatient (AMB) | payer MEDICARE, SELFPAY ==
--- NOTE | 2023-03-20 09:52 | A.OFFPC_ITS ---
Vital Signs 03/20/23 09:53 Height 5 ft 6 in Weight 156 lb BMI 25.2 BP 148/60 H Blood Pressure Location Lt brachial Position Sitting Pulse 70 Pulse Source Pulse Oximeter Pulse Oximetry (%) 95 Oxygen Delivery Method Room Air Intake Visit Reasons: Est. Care/ AFIB, Seizures, Lung Cancer/transfer Intake Note: Pt is here today as a New Patient to est care Allergies bupropion [From Wellbutrin] Allergy (Verified 10/26/23 11:20) Chest Pain ciprofloxacin Allergy (Verified 10/26/23 11:20) Chest Pain prednisone Allergy (Verified 10/26/23 11:20) Seizure Medication List - Last Reconciled 03/20/23 by Hayley Ni MD albuterol sulfate 90 mcg/actuation 2 puffs inhalation Q4H PRN [id number] 160-9-4.8 mcg/actuation (Breztri Aerosphere) inhalations inhalation diltiazem HCl ER 240 mg PO DAILY doxycycline monohydrate 100 mg PO BID flecainide 100 mg PO Q12H fluticasone propionate 50 mcg/actuation 1 spray intranasal BEDTIME hydrochlorothiazide 12.5 mg PO BEDTIME ipratropium-albuterol 0.5 mg-3 mg(2.5 mg base)/3 mL 3 mL inhalation Q6H PRN lamotrigine 100 mg PO BID levalbuterol HCl 1.25 mg (3 mL) inhalation BID 30 days magnesium 500 mg PO DAILY nebulizers As directed omeprazole 40 mg PO BID@0630,1630 Oxygen Home Use As directed rivaroxaban (Xarelto) 20 mg PO DAILY Tobacco use date assessed: 03/20/23 Fall risk assessment: No Falls in past year Last assessed Fall Risk: 03/20/23 Dental Screening Dental Screen Date: 03/20/23 Did you have a dental visit in the last 12 months?: Yes Did you have a dental problem in the last 6 months where you did not have access to dental care?: No Was dental information given to patient?: Patient has dentist HPI Est. Care/ AFIB, Seizures, Lung Cancer/transfer HPI Details ?67 year lady, here today to establish care with a new PCP . She has history of COPD, on home O2, on Bretztri, and DuoNeb 4 times a day. She has history of lung cancer s/p right upper lobe lobectomy with curative intent, did not need any chemo or radiation, gets yearly CT scans. She was diagnosed to have atrial fibrillation March 2022, currently on Xarelto and flecainide, followed by cardiology . She also has a hiatal hernia currently on omeprazole 40 mg twice a day. Denies any chest pain, no lightheadedness or shortness of breath ? [facility] Medical History (Updated 10/30/23 @ 02:10 by Hayley Ni MD) History of seizure disorder History of lung cancer Achalasia of esophagus Osteoporosis HTN (hypertension) KRISTEN on CPAP Lung cancer Asthma-COPD overlap syndrome GERD (gastroesophageal reflux disease) Emphysema/COPD Surgical History S/P partial lobectomy of lung H/O wrist surgery History of cholecystectomy Family History Mother Small cell lung cancer Father Stomach cancer Brother Diabetes Social History Household Members: Spouse, Family and None Housing: House Do you presently have visiting nurse or other home services: No Alcohol intake: current Alcohol intake frequency: does not drink Patient Tobacco Use Status: Former Tobacco user Quit Date: 2015 Years Smoked: 30 +/- e-Cigarette/Vaping Use: Never Used Advance Directives Date on File: 04/21/22 service: No Current occupational status: retired Cognitive needs: No Hearing needs: No Vision needs: Yes Questionnaire PHQ-9 Over the last 2 weeks, how often have you been bothered by any of the following problems? 1. Little interest or pleasure in doing things: not at all 2. Feeling down, depressed, or hopeless: not at all 3. Trouble falling or staying asleep, or sleeping too much: not at all 4. Feeling tired or having little energy: more than half the days 5. Poor appetite or overeating: not at all 6. Feeling bad about yourself - or that you are a failure or have let yourself or your family down: not at all 7. Trouble concentrating on things, such as reading the newspaper or watching television: several days 8. Moving or speaking so slowly that other people could have noticed. Or the opposite - being so fidgety or restless that you have been moving around a lot more than usual: nearly every day 9. Thoughts that you would be better off or of hurting yourself in some way: not at all Total score: 6 Depression Screening Interpretation: Negative Depression Screening Done: Yes 29100 - PHQ-9 Billing: Yes Source: Developed by Drs. Noah Elizabeth, Samia Herzog, Salbador Donovan and colleagues, with an educational sonal from [employer]. Thrive Questionnaire Date Thrive assessed: 03/20/23 What is your living situation today?: I have a steady place to live Within the past 12 months, did the food you bought not last and you didn't have the money to get more?: Never true Within the past 12 months, did you worry whether your food would run out before you got money to buy more?: Never true Do you have trouble paying for medicines?: Yes Do you have trouble getting transportation to medical appointments?: No Do you have trouble paying your heating and electricity bill?: No Do you have trouble taking care of your child, family member or friend?: No Do you have trouble with day-to-day activities such as bathing, preparing meals, shopping, managing finances, etc.?: No Are you currently unemployed and looking for a job?: No Are you interested in more education?: No Currently or been in a relationship where the following occur: no concerns reported AUDIT C Alcohol Use Questionnaire (AUDIT-C) 1. How often do you have a drink containing alcohol?: Never 3. How often do you have six or more drinks on one occasion?: Never Total Score: 0 KT-7 AMB Questionnaire KT-7 Date KT - 7 assessed: 03/20/23 Feeling nervous, anxious, or on edge: 1 = Several days Not being able to stop or control worryin = Several days Worrying too much about different things: 1 = Several days Trouble relaxin = Several days Being so restless that it is hard to sit still: 1 = Several days Becoming easily annoyed or irritable: 1 = Several days Feeling afraid as if something awful might happen: 1 = Several days Total KT-7 score (0-4 normal; 5-9 mild; 10-14 moderate; 15-21 severe): 7 Source: Developed by Drs. Noah Elizabeth, Samia Herzog, Salbador Donovan and colleagues, with an educational sonal from [employer]. KT-7 Assessment Billing KT-7 Assessment Tool: KT-7 Assessment 86247 Review of Systems Const Denies chills, Denies fatigue, Denies fever(s) and Denies weakness Eyes Denies change in vision ENT Denies dizziness Card Denies chest pain, Denies leg edema, Denies lightheadedness, Denies palpitations and Denies dyspnea on exertion Resp Denies cough and Denies dyspnea on exertion GI Reports no additional complaints Reports no additional complaints Musc Denies abnormal gait, Denies muscle weakness, Denies numbness and Denies tingling Neuro Denies abnormal gait, Denies dizziness, Denies numbness, Denies tingling and Denies weakness Psych Reports no additional complaints Endo Denies fatigue and Denies palpitations Ga/Lymph Reports no additional complaints Aller/Immun Reports no additional complaints Physical exam (Primary Care) Vital Signs: Last Vital Signs Pulse 70 03/20/23 09:53 BP 148/60 H 03/20/23 09:53 Pulse Ox 95 03/20/23 09:53 Oxygen Delivery Method Room Air 03/20/23 09:53 Care Plan Goal for BP management: bp at targetb BMI result Body Mass Index 25.2 Bmi at target and wieght has been stablep Tobacco/Smoking Status: Tobacco use Status Tobacco use date assessed 03/20/23 03/20/23 09:59 Patient Tobacco Use Status Former Tobacco user 03/20/23 09:59 Tobacco use type 11/16/22 13:35 Praised for not smoking now PHQ-9: PHQ-9 Score PHQ-9: Total score 6 10/30/23 02:06 Depression Screening Interpretation: Negative Thrive Assessment: Date of Thrive Assessment Date Thrive assessed 03/20/23 03/20/23 11:17 Currently or been in a relationship where the following occur: no concerns reported Const General: no acute distress and alert Orientation/consciousness: patient oriented x3 HENMT Ears: external ears normal General nose exam: Normal external nose present and No nasal discharge present Mouth: Normal oral and palatal mucosa present, oropharynx normal and moist mucous membranes Eyes General: appearance normal, both eyes and all related structures Conjunctivae: conjunctivae normal Sclerae: sclerae normal Pupils: Equal, round and reactive pupils present EOM: EOMs intact bilaterally Neck Neck: Yes full ROM, Yes no lymphadenopathy and Yes supple Resp Effort & Inspection: normal respiratory effort and able to speak in complete sentences Auscultation: clear to auscultation bilaterally Cardio Rate: regular rate Rhythm: regular rhythm Heart sounds: S1 normal heart sound present and S2 normal heart sound present GI Palpation (GI): Soft to palpation, nontender and no masses Auscultation: normal bowel sounds Back/Spine/Pelvis Back: No back tenderness Skin General skin exam: no rashes or lesions noted Neuro General: patient oriented x3, gait normal, tone normal, moves all extremities, Normal light touch and pain sensation and no focal motor deficits Cranial nerves: Yes CN's II-XII intact bilaterally and Yes Equal, round and reactive pupils present Cognition (Neuro): normal cognition Extrem General: Yes full ROM, Yes no joint enlargement, Yes no clubbing, cyanosis or edema and Yes no calf tenderness Psych Appearance: grossly normal and well kempt Mental Status: mental status grossly normal Speech and movement: Normal speech and movement present Affect: normal affect Assessment and Plan Assessment & Plan (1) Vitamin D deficiency: Code(s): E55.9 - Vitamin D deficiency, unspecified Plan: Will check vitamin-D level, in the meantime continue taking odzf-dna-dnhejcg vitamin-D 3 at least 2000 units daily (2) PAF (paroxysmal atrial fibrillation): Code(s): I48.0 - Paroxysmal atrial fibrillation Plan: Currently followed by cardiology on flecainide and rivaroxaban (3) Screening for lipid disorders: Code(s): Z13.220 - Encounter for screening for lipoid disorders Plan: Fasting lipid panel (4) Breast cancer screening: Code(s): Z12.39 - Encounter for other screening for malignant neoplasm of breast Qualifiers: Breast cancer screening modality: mammogram Qualified Code(s): Z12.31 - Encounter for screening mammogram for malignant neoplasm of breast Plan: Ordered screening mammogram (5) Screening for osteoporosis: Code(s): Z13.820 - Encounter for screening for osteoporosis Plan: Bone density scan will (6) History of lung cancer: Code(s): Z85.118 - Personal history of other malignant neoplasm of bronchus and lung Plan: Gets yearly CT of lung per thoracic surgery (7) HTN (hypertension): Code(s): I10 - Essential (primary) hypertension Plan: Blood pressure at goal of less than 130/80. Continue with current medication. Reinforced importance of following a low sodium diet, getting regular exercise, and lowering stress levels. (8) Asthma-COPD overlap syndrome: Code(s): J44.9 - Chronic obstructive pulmonary disease, unspecified Plan: Followed by Pulmonary currently on Bretzri and as needed albuterol inhaler (9) History of seizure disorder: Code(s): Z86.69 - Personal history of other diseases of the nervous system and sense organs Plan: Currently on lamotrigine Orders: Orders Lipid Panel 03/20/23 Z13.220 - Encounter for screening for lipoid disorders, E87.6 - Hypokalemia, Z78.0 - Asymptomatic menopausal state, E55.9 - Vitamin D deficiency, unspecified, I48.0 - Paroxysmal atrial fibrillation Vitamin D 25-OH Total 03/20/23 Z13.220 - Encounter for screening for lipoid disorders, E87.6 - Hypokalemia, Z78.0 - Asymptomatic menopausal state, E55.9 - Vitamin D deficiency, unspecified, I48.0 - Paroxysmal atrial fibrillation Vitamin B12 and Folate 03/20/23 Z13.220 - Encounter for screening for lipoid disorders, E87.6 - Hypokalemia, Z78.0 - Asymptomatic menopausal state, E55.9 - Vitamin D deficiency, unspecified, I48.0 - Paroxysmal atrial fibrillation Magnesium 03/20/23 Z13.220 - Encounter for screening for lipoid disorders, E87.6 - Hypokalemia, Z78.0 - Asymptomatic menopausal state, E55.9 - Vitamin D deficiency, unspecified, I48.0 - Paroxysmal atrial fibrillation MM screening mammo BI 03/20/23 Z12.31 - Encounter for screening mammogram for malignant neoplasm of breast, Z13.820 - Encounter for screening for osteoporosis, Z78.0 - Asymptomatic menopausal state XR DEXA axial skeleton 03/20/23 Z12.31 - Encounter for screening mammogram for malignant neoplasm of breast, Z13.820 - Encounter for screening for osteoporosis, Z78.0 - Asymptomatic menopausal state Medications: New magnesium 500 mg PO DAILY Coding Level of Care Code Est Pt Level 4 (97638) Diagnoses Vitamin D deficiency E55.9 PAF (paroxysmal atrial fibrillation) I48.0 Screening for lipid disorders Z13.220 Encounter for screening mammogram for malignant neoplasm of breast Z12.31 Breast cancer screening modality: mammogram Screening for osteoporosis Z13.820 History of lung cancer Z85.118 HTN (hypertension) I10 Asthma-COPD overlap syndrome J44.9 History of seizure disorder Z86.69 Additional Codes KT-7 Assessment Billing - KT-7 Assessment Tool: KT-7 Assessment [id number] ([id number])
[2023-03-20 09:53] VITALS: BP 148/60; PULSE 70; O2SAT 95; BMI 25.2
== END 2023-03-20 11:11 | disposition home or self-care (01) ==
PROVIDERS: PCP Hospitalist; Visit Provider Internal Medicine
DX: E55.9 Vitamin D deficiency, unspecified (principal); I48.0 Paroxysmal atrial fibrillation; Z13.220 Encounter for screening for lipoid disorders; Z12.31 Encounter for screening mammogram for malignant neoplasm of breast; Z13.820 Encounter for screening for osteoporosis; Z85.118 Personal history of other malignant neoplasm of bronchus and lung; I10 Essential (primary) hypertension; J44.9 Chronic obstructive pulmonary disease, unspecified; Z86.69 Personal history of other diseases of the nervous system and sense organs
CPT/HCPCS: 99214

== ENCOUNTER 2023-03-20 11:13 | Outpatient (REF) | payer MEDICARE, SELFPAY | END 2023-03-20 11:14 | disposition home or self-care (01) | LOC: HO.HMGCLDS 11:13 | PROVIDERS: PCP Internal Medicine; Visit Provider Internal Medicine | DX: E87.6 Hypokalemia (principal); E55.9 Vitamin D deficiency, unspecified; I48.0 Paroxysmal atrial fibrillation; Z13.220 Encounter for screening for lipoid disorders; Z78.0 Asymptomatic menopausal state | CPT/HCPCS: 36415; 80061; 82306; 82607; 82746; 83735 ==

== ENCOUNTER 2023-04-11 07:13 | Outpatient (REF) | payer MEDICARE, SELFPAY | END 2023-04-11 07:14 | disposition home or self-care (01) | LOC: HO.RESP 07:13 | PROVIDERS: PCP Internal Medicine; Visit Provider Hospitalist | DX: J44.9 Chronic obstructive pulmonary disease, unspecified (principal) | CPT/HCPCS: 94010; 94727; 94729 ==

== ENCOUNTER → 2023-04-13 07:23 | Outpatient (BNV) | payer MEDICARE, SELFPAY | PROVIDERS: PCP Hospitalist; Visit Provider Internal Medicine Pulmonary Disease | DX: J44.9 Chronic obstructive pulmonary disease, unspecified (principal) | CPT/HCPCS: 94060; 94727; 94729 ==

== ENCOUNTER 2023-04-13 12:57 | Outpatient (REF) | payer MEDICARE, SELFPAY ==
--- NOTE | ~2023-04-13 | MM_ITS ---
EXAMINATION: BONE DENSITOMETRY CLINICAL INDICATION: Asymptomatic menopausal state. COMPARISON: This is the patient's baseline examination. TECHNIQUE: Using a [employer] DXA System (software version: 13.1) manufactured by [employer], dual-energy x-ray absorptiometry was performed of the lumbar spine and left hip. The images are of good technical quality. Summary results are attached. FINDINGS: LEFT FEMUR, NECK: BMD 0.690 g/cm2, Z-score -1.0, T-score -2.5, osteoporosis. LEFT FEMUR, TOTAL: BMD 0.808 g/cm2, Z-score -0.3, T-score -1.6, osteopenia. AP SPINE L1-L4: BMD 1.026 g/cm2, Z-score 0.2, T-score -1.3, osteopenia. IDENTIFIED RISK FACTORS: Early menopause, secondary osteoporosis, history of fracture (adult), low calcium intake, thiazide. HISTORY OF FRACTURE: Spine. MEDICATIONS: None listed. MM/XR DEXA axial skeleton IMPRESSION: 1. DIAGNOSIS: Severe osteoporosis based on the lowest T-score value of -2.5 in the femoral neck and history of fracture applying World Health Organization criteria. 2. 10-YEAR FRACTURE RISK PREDICTION, FRAX: According to the guidelines, FRAX calculation should only be performed on patients in the osteopenia bone density category. Therefore, FRAX was not performed on this patient. 3. Treatment Recommendations: NOF guidelines recommend consideration for treatment in postmenopausal women and men age 50 and older presenting with the following: -A hip or vertebral (clinical or morphometric) fracture. -T-score less than or equal to -2.5 at the femoral neck or spine after appropriate evaluation to exclude secondary causes. -Low bone mass at the hip or spine and a 10-year fracture probability by FRAX of greater than or equal to 3% for hip fracture or greater than or equal to 20% for major osteoporotic fracture based on the [place] adapted WHO algorithm. 4. Other Recommendations: All treatment decisions require clinical judgment and consideration of individual patient factors, including patient preferences, comorbidities, previous drug use, risk factors not captured in the FRAX model (e.g. frailty, falls, vitamin D deficiency, increased bone turnover, interval significant decline in bone density) and possible under or overestimation of fracture risk by FRAX. Additional medical evaluation for secondary cause of low bone mineral density may be appropriate. FUTURE SCAN RECOMMENDATION: People with diagnosed cases of osteoporosis or at high risk for fracture should have regular bone mineral density tests. For patients eligible for Medicare, routine testing is allowed once every 2 years. The testing frequency can be increased to one year for patients who have rapidly progressing disease, those who are receiving or discontinuing medical therapy to restore bone mass, or have additional risk factors.
== END 2023-04-13 12:58 | disposition home or self-care (01) ==
LOC: HO.MAMMO 12:57
PROVIDERS: PCP Internal Medicine; Visit Provider Internal Medicine
DX: Z12.31 Encounter for screening mammogram for malignant neoplasm of breast (principal); Z13.820 Encounter for screening for osteoporosis; Z78.0 Asymptomatic menopausal state
CPT/HCPCS: 77063; 77067; 77080

== ENCOUNTER → 2023-04-13 13:15 | Outpatient (BNV) | payer MEDICARE, SELFPAY | PROVIDERS: PCP Internal Medicine; Visit Provider Radiology Diagnostic Radiology | DX: Z12.31 Encounter for screening mammogram for malignant neoplasm of breast (principal) | CPT/HCPCS: 77063; 77067 ==

== ENCOUNTER 2023-05-25 14:44 | Outpatient (AMB) | payer MEDICARE, SELFPAY ==
[2023-05-25 14:49] VITALS: PULSE 90; O2SAT 92; BMI 24.9
--- NOTE | 2023-05-25 14:49 | A.OFFVIS_ITS ---
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 Apparently she underwent a screening imaging study demonstrating a right upper lobe pulmonary malignant process. She referred to thoracic surgery where she underwent a right upper lobe lobectomy with curative intent. The patient was indeed confirmed to have cancer and she did not need any chemo or radiation. She did have her serial CT scans every 6 months and now moved over to every year. Back in March 2022 she was admitted to the hospital with palpitations cardiac arrhythmia and atrial fibrillation. During the hosp italization she did have a CTA which was personally by me demonstrating the postsurgical changes in addition to all other subcentimeter pulmonary nodules. in addition to this her CT scan demonstrates evidence of mosaic pattern suggesting of air trapping from her obstructive airway disease. Regards of her COPD the patient was placed on azithromycin which she is has been taking. Although, she is also been taking flecainide which is a concern as far as QT prolongation and severe cardiac arrhythmias. Therefore, the patient is okay stopping the medication at this time. She is using Breztri inhaler which has been affecting beneficial. Does not appear to be activating her atrial fibrillation. In addition to this the patient does have a hiatal hernia. She does sleep elevated and does take a PPI. Currently she is asymptomatic. 05/25/2023 the patient is here for a pul monary follow-up visit. The patient now is recovering from COVID-19. She does fairly sick. She yet is 2 weeks out. The patient still having some shortness of breath chest tightness and chest congestion. She also feels fatigued. She did not take packs [place]. She had not taken any medications. She has been using her nebulizer and also her respiratory medicines. She does have a history atrial fibrillation. I will switch her DuoNeb over to Xopenex to minimize in the irritability to the heart. The patient also she underwent pulmonary function studies. It was very hard for her to go them. Consistent with her COPD in addition to diffusion impairment. She does have oxygen available. She will benefit from pulmonary rehabilitation. Will consider this when she improves after having COVID. We did review her CT scan of the chest that she had back in 2021. She does appear to have some irregular airways likely just kinking of the airways postoperatively. Although would not be unreasonable to consider bronchoscopy. We will reassess her in the springtime. If she continues to be symptomatic will consider bronchoscopy otherwise will wait for CT scan that will be done sometime in October. FORMERLY [facility], [facility] Medical History KRISTEN on CPAP Lung cancer Asthma-COPD overlap syndrome Abnormal EKG Seizure GERD (gastroesophageal reflux disease) Upper respiratory infection Afib Emphysema/COPD HTN (hypertension) Surgical History S/P partial lobectomy of lung H/O wrist surgery History of cholecystectomy Family History (Updated 03/20/23 @ 09:57 by Gregoria Amaro MEDICAL OFFICE ASSISTANT) Mother Small cell lung cancer Father Stomach cancer Brother Diabetes Social History Household Members: Spouse, Family and None Housing: House Do you presently have visiting nurse or other home services: No Alcohol intake: current Alcohol intake frequency: does not drink Patient Tobacco Use Status: Former Tobacco user Quit Date: 2015 Years Smoked: 30 +/- Advance Directives Date on File: 04/21/22 service: No Current occupational status: retired Cognitive needs: No Hearing needs: No Vision needs: Yes Review of Systems Const Denies chills, Reports fatigue, Denies fever(s), Denies frequent falls, Denies weakness, Denies weight gain and Denies weight loss Eyes Denies change in vision ENT Denies dizziness and Denies throat swelling Card Denies chest pain, Denies leg edema, Denies lightheadedness, Denies palpitations, Denies dyspnea, Reports dyspnea on exertion, Denies orthopnea and Denies other (loss of consciousness) Resp Reports change in phlegm color, Reports chest congestion, Reports cough, Denies dyspnea, Reports dyspnea on exertion and Reports wheezing GI Denies hematochezia and Denies change in stool character Musc Denies abnormal gait, Denies muscle weakness, Denies numbness, Denies radiating pain into limb and Denies tingling Neuro Denies abnormal gait, Denies dizziness, Denies frequent falls, Denies numbness, Denies tingling and Denies weakness Endo Reports fatigue and Denies palpitations Aller/Immun Denies seasonal rhinorrhea, Denies throat swelling and Reports wheezing Physical Exam Vital Signs: Last Vital Signs Pulse 90 05/25/23 14:49 Pulse Ox 92 05/25/23 14:49 Oxygen Delivery Method Room Air 05/25/23 14:49 BMI result Body Mass Index 24.9 Const General: cooperative, comfortable and no acute distress Orientation/consciousness: patient oriented x3 Chest Chest palpation & inspection: normal inspection of the chest Resp Effort & Inspection: normal respiratory effort and prolonged expiratory phase Auscultation: wheezes and diminished lung sounds Cardio Rate: regular rate Rhythm: regular rhythm Heart sounds: S1 normal heart sound present and S2 normal heart sound present Neuro General: patient oriented x3 Extrem General: Yes no pedal edema Assessment & Plan Assessment & Plan (1) Asthma-COPD overlap syndrome: Code(s): J44.9 - Chronic obstructive pulmonary disease, unspecified (2) Lung cancer: Code(s): C34.90 - Malignant neoplasm of unspecified part of unspecified bronchus or lung Qualifiers: Laterality: unspecified laterality Lung location: unspecified part of lung Qualified Code(s): C34.90 - Malignant neoplasm of unspecified part of unspecified bronchus or lung (3) KRISTEN on CPAP: Code(s): G47.33 - Obstructive sleep apnea (adult) (pediatric) Plan start prednisone taper start Doxycycline sputum cx continue Breztri GÓMEZ as needed Will request Xopenex for nebulizer medicine Serial CT chest as per Thoracic surgery, October 2023 sleep elevated Consider bronchsocopy if no better or if her CT chest is abnormal F/U 3-4 months Orders: Orders Sputum Cult + Gram stain Today J44.9 - Chronic obstructive pulmonary disease, unspecified Medications: New doxycycline hyclate 100 mg PO BID 20 caps 0RF 10 days prednisone PO daily; Take 2 tabs daily x 5 days, then 1 tablet daily x 5 days 15 tabs 0RF 10 days levalbuterol HCl 1.25 mg (3 mL) inhalation BID 180 mL 5RF 30 days J44.9 - Chronic obstructive pulmonary disease, unspecified Coding Level of Care Code Est Pt Level 4 (35600) Diagnoses Asthma-COPD overlap syndrome J44.9 Malignant neoplasm of lung, unspecified laterality, unspecified part of lung C34.90 Laterality: unspecified laterality Lung location: unspecified part of lung KRISTEN on CPAP G47.33 Time Spent (min) 18
== END 2023-05-25 15:17 | disposition home or self-care (01) ==
PROVIDERS: PCP Hospitalist; Visit Provider Hospitalist
DX: J44.9 Chronic obstructive pulmonary disease, unspecified (principal); C34.90 Malignant neoplasm of unspecified part of unspecified bronchus or lung; G47.33 Obstructive sleep apnea (adult) (pediatric)
CPT/HCPCS: 99214

== ENCOUNTER → 2023-05-25 14:44 | Outpatient (BNVA) | payer MEDICARE, SELFPAY | PROVIDERS: PCP Hospitalist; Visit Provider Hospitalist | DX: J44.9 Chronic obstructive pulmonary disease, unspecified (principal); C34.90 Malignant neoplasm of unspecified part of unspecified bronchus or lung; G47.33 Obstructive sleep apnea (adult) (pediatric) | CPT/HCPCS: 99212 ==

== ENCOUNTER 2023-06-27 12:25 | Outpatient (REF) | payer MEDICARE, SELFPAY ==
[2023-06-30 11:33] LABS: Lamotrigine Lamictal 4.7 mcg/mL (2.5-15.0)
== END 2023-06-27 12:26 | disposition home or self-care (01) ==
LOC: HO.LAB 12:25
PROVIDERS: PCP Internal Medicine; Visit Provider Registered Nurse
DX: G40.909 Epilepsy, unspecified, not intractable, without status epilepticus (principal)
CPT/HCPCS: 36415; 80175

== ENCOUNTER 2023-08-30 13:47 | Outpatient (AMB) | payer MEDICARE, SELFPAY ==
--- NOTE | 2023-08-30 14:00 | A.OFFVIS_ITS ---
Intake Vital Signs 08/30/23 14:01 Height 5 ft 6 in Weight 154 lb 5.177 oz BMI 24.9 BP 110/64 Blood Pressure Location Lt brachial Position Sitting Pulse 75 Intake Visit Reasons: 6 month follow up Intake Note: pt states that she its doing fine with some shortness of breath. Device Engineer Required: No Accompanied by: Significant Other Allergies bupropion [From Wellbutrin] Allergy (Verified 05/25/23 14:50) Chest Pain ciprofloxacin Allergy (Verified 05/25/23 14:50) Chest Pain prednisone Allergy (Verified 05/25/23 14:50) Seizure Medication List - Last Reconciled 08/30/23 by Sumeet Trevino MD albuterol sulfate 90 mcg/actuation 2 puffs inhalation Q4H PRN [id number] 160-9-4.8 mcg/actuation (Breztri Aerosphere) inhalations inhalation diltiazem HCl ER 240 mg PO DAILY flecainide 100 mg PO Q12H fluticasone propionate 50 mcg/actuation 1 spray intranasal BEDTIME hydrochlorothiazide 12.5 mg PO BEDTIME lamotrigine 100 mg PO BID levalbuterol HCl 1.25 mg (3 mL) inhalation BID 30 days magnesium 500 mg PO DAILY nebulizers As directed omeprazole 40 mg PO BID@0630,1630 Oxygen Home Use As directed rivaroxaban (Xarelto) 20 mg PO QPM HPI HPI Comments History of Present Illness Details 68-year-old [facility] She has background history of paroxysmal atrial fibrillation. She had chest pains when she had atrial fibrillation. She had precordial T-wave inversions. We tried to a stress test but she collapsed while exercising without any ECG changes and etiology was unclear. After discussion she was taken cardiac catheterization. Cardiac catheterization showed normal filling pressures without any significant coronary disease. After discussion she was started on flecainide. She is returning and denying any palpitations. She is saying she is short of breath and will be seeing her kaiako kura ka[place] maori in a week. No fevers or chills. Otherwise stable clinically. 02/22/2023: She returns for follow-up. She is denying any chest discomfort. She has bronchitis and has been coughing. It appears she was receiving azithromycin for suppression of chronic bronchitis. Her recent QT interval was prolonged. She was taken off the azithromycin yesterday. EKG in the office is showing prolonged QT interval of 504 milliseconds. No dizziness or syncope. Otherwise taking medications regularly. 08/30/2023: She returns for follow-up. She has been doing well. No chest pain or shortness of breath. Her is undergoing aortic valve replacement at . Taking medications regularly and tolerating them well. FORMERLY [facility] Medical History KRISTEN on CPAP Lung cancer Asthma-COPD overlap syndrome Abnormal EKG Seizure GERD (gastroesophageal reflux disease) Upper respiratory infection Afib Emphysema/COPD HTN (hypertension) Surgical History S/P partial lobectomy of lung H/O wrist surgery History of cholecystectomy Family History Mother Small cell lung cancer Father Stomach cancer Brother Diabetes Social History Household Members: Spouse, Family and None Housing: House Do you presently have visiting nurse or other home services: No Alcohol intake: current Alcohol intake frequency: does not drink Patient Tobacco Use Status: Former Tobacco user Quit Date: 2015 Years Smoked: 30 +/- Advance Directives Date on File: 04/21/22 service: No Current occupational status: retired Cognitive needs: No Hearing needs: No Vision needs: Yes Review of Systems Const Denies chills, Denies fatigue, Denies fever(s), Denies frequent falls, Denies weakness, Denies weight gain and Denies weight loss ENT Denies dizziness Card Denies chest pain, Denies leg edema, Denies lightheadedness, Denies palpitations, Denies dyspnea and Denies dyspnea on exertion Resp Denies cough, Denies dyspnea and Denies dyspnea on exertion GI Denies hematochezia Musc Denies abnormal gait, Denies muscle weakness, Denies numbness, Denies radiating pain into limb and Denies tingling Neuro Denies abnormal gait, Denies dizziness, Denies frequent falls, Denies numbness, Denies tingling and Denies weakness Endo Denies fatigue and Denies palpitations Physical Exam Vital Signs: Last Vital Signs Pulse 75 03/20/24 14:01 BP 110/64 08/30/23 14:01 BMI result Body Mass Index 24.9 GENERAL APPEARANCE: in no acute distress, pleasant. NECK: no carotid bruit, no jugular venous distention. SKIN: Poison ingrid over the arms and legs. HEART: no murmurs, regular rate and rhythm. LUNGS: clear to auscultation bilaterally. ABDOMEN: soft, nontender. EXTREMITIES: no edema. PERIPHERAL PULSES: equal. NEUROLOGIC: No gross deficits, AAO X 3 Office Procedures EKG Details: Sinus rhythm 75 beats per minute, normal axis, precordial T-wave changes- nonspecific, QTC 455 milliseconds. [id number], Complete Assessment & Plan Assessment & Plan (1) PAF (paroxysmal atrial fibrillation): Code(s): I48.0 - Paroxysmal atrial fibrillation Plan Pleasant 68 year female who is here for follow-up. She had paroxysmal atrial fibrillation in setting of seizures. She has recurrent episode and eventually was started on flecainide. She has done well with flecainide and diltiazem. Blood pressure is well controlled. No chest pain or shortness of breath. O verall clinically stable. She will see us back in 4 months. Thank you for allowing me to participate in the care of your patient. Please feel free to contact me if you have any questions. Coding Level of Care Code Est Pt Level 4 (27223) Diagnoses PAF (paroxysmal atrial fibrillation) I48.0 CPT Codes EKG - CPT: 91198-[id number], Complete ([id number])
[2023-08-30 14:01] VITALS: BP 110/64; PULSE 75; BMI 24.9
== END 2023-08-30 14:33 | disposition home or self-care (01) ==
PROVIDERS: PCP Hospitalist; Visit Provider Internal Medicine Cardiovascular Disease
DX: I48.0 Paroxysmal atrial fibrillation (principal)
CPT/HCPCS: 93010; 99214

== ENCOUNTER → 2023-08-30 13:47 | Outpatient (BNVA) | payer MEDICARE, SELFPAY | PROVIDERS: PCP Hospitalist; Visit Provider Internal Medicine Cardiovascular Disease | DX: I48.0 Paroxysmal atrial fibrillation (principal); G47.33 Obstructive sleep apnea (adult) (pediatric); Z98.890 Other specified postprocedural states; Z99.81 Dependence on supplemental oxygen; Z99.89 Dependence on other enabling machines and devices | CPT/HCPCS: 93005; 99212 ==

== ENCOUNTER 2023-10-26 10:06 | Outpatient (AMB) | payer MEDICARE, SELFPAY ==
[2023-10-26 10:57] VITALS: BP 138/62; PULSE 76; O2SAT 96; BMI 25.2
--- NOTE | 2023-10-26 10:57 | MHC.PC.OV ---
Vital Signs 10/26/23 10:57 Height 5 ft 6 in Weight 156 lb BMI 25.2 BP 138/62 Blood Pressure Location Lt brachial Position Sitting Pulse 76 Pulse Source Pulse Oximeter Pulse Oximetry (%) 96 Oxygen Delivery Method Room Air Intake Visit Reasons: 6mo. f/u Intake Note: Pt is here today for her 6mo. f/u Allergies bupropion [From Wellbutrin] Allergy (Verified 10/30/23 02:11) Chest Pain ciprofloxacin Allergy (Verified 10/30/23 02:11) Chest Pain prednisone Allergy (Verified 10/30/23 02:11) Seizure Medication List - Last Reconciled 10/26/23 by Hayley Ni MD albuterol sulfate 90 mcg/actuation 2 puffs inhalation Q4H PRN iabqbsmiri-xlwqesta-iwdnudcgao 160-9-4.8 mcg/actuation (Breztri Aerosphere) inhalations inhalation diltiazem HCl ER 240 mg PO DAILY flecainide 100 mg PO Q12H fluticasone propionate 50 mcg/actuation 1 spray intranasal BEDTIME hydrochlorothiazide 12.5 mg PO BEDTIME lamotrigine 100 mg PO BID levalbuterol HCl 1.25 mg (3 mL) inhalation BID 30 days magnesium 500 mg PO DAILY nebulizers As directed omeprazole 40 mg PO BID@0630,1630 Oxygen Home Use As directed rivaroxaban (Xarelto) 20 mg PO QPM Tobacco use date assessed: 10/26/23 Fall risk assessment: 2 + Falls in past year Last assessed Fall Risk: 10/26/23 Dental Screening Dental Screen Date: 10/26/23 Did you have a dental visit in the last 12 months?: Yes Did you have a dental problem in the last 6 months where you did not have access to dental care?: Yes Was dental information given to patient?: Patient has dentist HPI 6mo. f/u HPI Details 68-year-old lady with history of paroxysmal atrial fibrillation currently on Xarelto, has COPD-asthma overlap syndrome, and history of lung cancer, currently followed by Pulmonary and thoracic surgery respectively, gets yearly CT of the lung with recent CT showing negative findings. She has his history of seizure disorder currently on lamotrigine has been seizure-free now for several years. Last bone density scan done April 2023 showed presence of severe osteoporosis in her left femoral neck, no history of fractures. Reviewed swallow ordered by her ENT last year showing presence of glucose pharyngeal achalasia and ssdx-er-pabylixv hiatal hernia. Patient still having difficulty swallowing solids. Blood pressure stable controlled on present treatment. Has been feeling well, with no new complaints at present time. [facility] Medical History History of seizure disorder History of lung cancer Achalasia of esophagus Osteoporosis HTN (hypertension) KRISTEN on CPAP Lung cancer Asthma-COPD overlap syndrome GERD (gastroesophageal reflux disease) Emphysema/COPD Surgical History S/P partial lobectomy of lung H/O wrist surgery History of cholecystectomy Family History Mother Small cell lung cancer Father Stomach cancer Brother Diabetes Social History Household Members: Spouse, Family and None Housing: House Do you presently have visiting nurse or other home services: No Alcohol intake: current Alcohol intake frequency: does not drink Patient Tobacco Use Status: Former Tobacco user Quit Date: 2016 Years Smoked: 30 +/- e-Cigarette/Vaping Use: Never Used Advance Directives Date on File: 04/21/22 service: No Current occupational status: retired Cognitive needs: No Hearing needs: No Vision needs: Yes Questionnaire PHQ-9 Over the last 2 weeks, how often have you been bothered by any of the following problems? 1. Little interest or pleasure in doing things: not at all 2. Feeling down, depressed, or hopeless: not at all 3. Trouble falling or staying asleep, or sleeping too much: not at all 4. Feeling tired or having little energy: not at all 5. Poor appetite or overeating: not at all 6. Feeling bad about yourself - or that you are a failure or have let yourself or your family down: not at all 7. Trouble concentrating on things, such as reading the newspaper or watching television: not at all 8. Moving or speaking so slowly that other people could have noticed. Or the opposite - being so fidgety or restless that you have been moving around a lot more than usual: not at all 9. Thoughts that you would be better off or of hurting yourself in some way: not at all Total score: 0 Depression Screening Interpretation: Negative Depression Screening Done: Yes 32552 - PHQ-9 Billing: Yes Source: Developed by Drs. Noah Elizabeth, Salbador Marquez and colleagues, with an educational sonal from [employer]. Thrive Questionnaire Date Thrive assessed: 10/26/23 I am a: Patient What is your living situation today?: I have a steady place to live Within the past 12 months, did the food you bought not last and you didn't have the money to get more?: Never true Within the past 12 months, did you worry whether your food would run out before you got money to buy more?: Never true Do you have trouble paying for medicines?: No Do you have trouble getting transportation to medical appointments?: No Do you have trouble paying your heating and electricity bill?: No Do you have trouble taking care of your child, family member or friend?: No Do you have trouble with day-to-day activities such as bathing, preparing meals, shopping, managing finances, etc.?: No Are you currently unemployed and looking for a job?: No Are you interested in more education?: No THRIVE Score: 0 AUDIT C Alcohol Use Questionnaire (AUDIT-C) 1. How often do you have a drink containing alcohol?: Never Total Score: 0 KT-7 AMB Questionnaire KT-7 Date KT - 7 assessed: 10/26/23 Feeling nervous, anxious, or on edge: 0 = Not at all Not being able to stop or control worryin = Several days Worrying too much about different things: 1 = Several days Trouble relaxin = Not at all Being so restless that it is hard to sit still: 0 = Not at all Becoming easily annoyed or irritable: 1 = Several days Feeling afraid as if something awful might happen: 1 = Several days Total KT-7 score (0-4 normal; 5-9 mild; 10-14 moderate; 15-21 severe): 4 Source: Developed by Drs. Noah Elizabeth, Samia Herzog, Salbador Donovan and colleagues, with an educational sonal from [employer]. KT-7 Assessment Billing KT-7 Assessment Tool: KT-7 Assessment 54040 Review of Systems Const Reports as per HPI, Denies chills, Denies fatigue, Denies fever(s), Denies frequent falls, Denies weakness, Denies weight gain and Denies weight loss ENT Denies dizziness Card Denies chest pain, Denies leg edema, Denies lightheadedness, Denies palpitations, Denies dyspnea and Denies dyspnea on exertion Resp Denies cough, Denies dyspnea and Denies dyspnea on exertion GI Reports as per HPI and Denies hematochezia Reports no additional complaints Musc Denies abnormal gait, Denies muscle weakness, Denies numbness, Denies radiating pain into limb and Denies tingling Neuro Denies abnormal gait, Denies dizziness, Denies frequent falls, Denies numbness, Denies tingling and Denies weakness Endo Denies fatigue and Denies palpitations Ga/Lymph Denies easy bleeding and Denies easy bruising Aller/Immun Reports no additional complaints Physical exam (Primary Care) Vital Signs: Last Vital Signs Pulse 76 10/26/23 10:57 BP 138/62 10/26/23 10:57 Pulse Ox 96 10/26/23 10:57 Oxygen Delivery Method Room Air 10/26/23 10:57 BMI result Body Mass Index 25.2 Tobacco/Smoking Status: Tobacco use Status Tobacco use date assessed 10/26/23 10/26/23 11:01 Patient Tobacco Use Status Former Tobacco user 10/26/23 11:01 Tobacco use type 11/16/22 13:35 e-Cigarette/Vaping Use Never Used 10/26/23 11:06 PHQ-9: PHQ-9 Score PHQ-9: Total score 0 10/30/23 02:23 Depression Screening Interpretation: Negative Thrive Assessment: Date of Thrive Assessment Date Thrive assessed 10/26/23 10/26/23 11:01 Const General: no acute distress and alert Orientation/consciousness: patient oriented x3 HENMT Ears: external ears normal General nose exam: Normal external nose present and No nasal discharge present Mouth: Normal oral and palatal mucosa present, oropharynx normal and moist mucous membranes Eyes General: appearance normal, both eyes and all related structures Neck Neck: Yes full ROM, Yes no lymphadenopathy and Yes supple Resp Effort & Inspection: normal respiratory effort and able to speak in complete sentences Auscultation: clear to auscultation bilaterally Cardio Rate: regular rate Rhythm: regular rhythm Heart sounds: S1 normal heart sound present and S2 normal heart sound present GI Palpation (GI): Soft to palpation, nontender and no masses Auscultation: normal bowel sounds Back/Spine/Pelvis Back: No back tenderness Skin General skin exam: no rashes or lesions noted Neuro General: patient oriented x3, gait normal, tone normal, moves all extremities, Normal light touch and pain sensation and no focal motor deficits Cranial nerves: Yes CN's II-XII intact bilaterally Cognition (Neuro): normal cognition Extrem General: Yes full ROM, Yes no joint enlargement, Yes no clubbing, cyanosis or edema and Yes no calf tenderness Psych Appearance: grossly normal and well kempt Mental Status: mental status grossly normal Speech and movement: Normal speech and movement present Affect: normal affect Immunizations pneumoc 20-ricardo conj-dip cr(PF) 0.5 mL IM syringe Performing Provider: Hayley Ni MD Performing Location: [facility] Administered by: Gregoria Amaro CMA on 10/26/23 12:24 Dose Route Admin Location Dispensed Lot Number Expiration Date NDC Manager Service Desk 0.5 mL IM Left Deltoid 0.5 mL [id number] 02/09/25 3734-1581-59 [employer] VIS Given Date VIS Provided VIS Publication Date 10/26/23 Single Vaccine 21 Eligibility Eligibility Date Funding Source Not VFC Eligible 10/26/23 Private Assessment and Plan Assessment & Plan (1) PAF (paroxysmal atrial fibrillation): Code(s): I48.0 - Paroxysmal atrial fibrillation Plan: Followed by cardiology currently on Xarelto and flecainide (2) Vitamin D deficiency: Code(s): E55.9 - Vitamin D deficiency, unspecified Plan: Will check vitamin-D level, lab ordered (3) HTN (hypertension): Code(s): I10 - Essential (primary) hypertension Plan: Continue with diltiazem, reinforced importance of following healthy diet and getting regular exercise (4) Asthma-COPD overlap syndrome: Code(s): J44.9 - Chronic obstructive pulmonary disease, unspecified Plan: Followed by pulmonary clinic at [place], currently on home O2, doing well, continue with current treatment (5) Osteoporosis: Comment: Left hip Code(s): M81.0 - Age-related osteoporosis without current pathological fracture Qualifiers: Osteoporosis type: age-related Presence of current pathological fracture: without current pathological fracture Qualified Code(s): M81.0 - Age-related osteoporosis without current pathological fracture Plan: Patient unable to tolerate alendronate as she has difficulty swallowing, still hesitant to start medications for treatment, will refer to endocrine clinic patient prefers female provider, referred to Dr. Orr to discuss other treatment options for her osteoporosis (6) Need for pneumococcal 20-valent conjugate vaccination: Code(s): Z23 - Encounter for immunization Plan: Prevnar 20 given today (7) Achalasia of esophagus: Code(s): K22.0 - Achalasia of cardia Plan: Gastric consult ordered Orders: Orders Aspartate Amino Transferase 10/26/23 E55.9 - Vitamin D deficiency, unspecified, I10 - Essential (primary) hypertension, I48.0 - Paroxysmal atrial fibrillation, J44.9 - Chronic obstructive pulmonary disease, unspecified, R35.0 - Frequency of micturition, Z13.220 - Encounter for screening for lipoid disorders Vitamin D 25-OH Total 10/26/23 E55.9 - Vitamin D deficiency, unspecified, I10 - Essential (primary) hypertension, I48.0 - Paroxysmal atrial fibrillation, J44.9 - Chronic obstructive pulmonary disease, unspecified, R35.0 - Frequency of micturition, Z13.220 - Encounter for screening for lipoid disorders Pneumococcal 20 Immunization 10/26/23 Z23 - Encounter for immunization Lipid Panel 10/26/23 E55.9 - Vitamin D deficiency, unspecified, I10 - Essential (primary) hypertension, I48.0 - Paroxysmal atrial fibrillation, J44.9 - Chronic obstructive pulmonary disease, unspecified, R35.0 - Frequency of micturition, Z13.220 - Encounter for screening for lipoid disorders Alanine Aminotransferase 10/26/23 E55.9 - Vitamin D deficiency, unspecified, I10 - Essential (primary) hypertension, I48.0 - Paroxysmal atrial fibrillation, J44.9 - Chronic obstructive pulmonary disease, unspecified, R35.0 - Frequency of micturition, Z13.220 - Encounter for screening for lipoid disorders Basic Metabolic Panel Fasting 10/26/23 E55.9 - Vitamin D deficiency, unspecified, I10 - Essential (primary) hypertension, I48.0 - Paroxysmal atrial fibrillation, J44.9 - Chronic obstructive pulmonary disease, unspecified, R35.0 - Frequency of micturition, Z13.220 - Encounter for screening for lipoid disorders Complete Blood Count Auto Diff 10/26/23 E55.9 - Vitamin D deficiency, unspecified, I10 - Essential (primary) hypertension, I48.0 - Paroxysmal atrial fibrillation, J44.9 - Chronic obstructive pulmonary disease, unspecified, R35.0 - Frequency of micturition, Z13.220 - Encounter for screening for lipoid disorders UA CC w/rflx Micro + Cult 10/26/23 E55.9 - Vitamin D deficiency, unspecified, I10 - Essential (primary) hypertension, J44.9 - Chronic obstructive pulmonary disease, unspecified, Z13.220 - Encounter for screening for lipoid disorders Referrals Endocrinology Referral M81.0 - Age-related osteoporosis without current pathological fracture Coding Level of Care Code Est Pt Level 4 (32597) Diagnoses PAF (paroxysmal atrial fibrillation) I48.0 Vitamin D deficiency E55.9 HTN (hypertension) I10 Asthma-COPD overlap syndrome J44.9 Age-related osteoporosis without current pathological fracture M81.0 Osteoporosis type: age-related Presence of current pathological fracture: without current pathological fracture Need for pneumococcal 20-valent conjugate vaccination Z23 Achalasia of esophagus K22.0 Additional Codes KT-7 Assessment Billing - KT-7 Assessment Tool: KT-7 Assessment 72985 ([id number])
== END 2023-10-26 12:03 | disposition home or self-care (01) ==
PROVIDERS: PCP Hospitalist; Visit Provider Internal Medicine
DX: Z23 Encounter for immunization (principal)
CPT/HCPCS: 90471; 90677; 99214

== ENCOUNTER 2023-10-26 12:04 | Outpatient (REF) | payer MEDICARE, SELFPAY ==
[2023-10-26 13:05] LABS: MANUAL DIFF FLAG NO
[2023-10-26 13:10] LABS: Basophils Absolute Auto 0.1 X10*3/uL (0.0-0.2); Basophils Percent Auto 0.8 % (0-2); Eosinophils Absolute Auto 0.2 X10*3/uL (0.0-0.4); Eosinophils Percent Auto 2.1 % (0-4); Hemoglobin 14.1 g/dl (12.0-16.0); Imm Gran Abs Auto 0.03 X10*3/uL (0.00-0.03); Imm Gran Pct Auto 0.4 % (0.0-0.4); Lymphocytes Absolute Auto 1.3 X10*3/uL (1.2-4.9); Lymphocytes Percent Auto 17.2 % (20-40); Mean Corpuscular HGB Conc 33.6 g/dl (31.0-35.0); Mean Corpuscular Hemoglobin 29.9 pg (27.0-33.0); Mean Platelet Volume 9.4 fL (9.4-12.3); Monocytes Absolute Auto 0.4 X10*3/uL (0.1-1.2); Monocytes Percent Auto 5.6 % (2-11); Neutrophils Absolute Auto 5.4 x10*3/uL (2.0-8.3); Neutrophils Percent Auto 73.9 % (45-73); Platelet Count 317 X10*3/uL (160-400); Red Blood Count 4.72 X10*6/uL (4.20-5.50); Red Cell Distribution Width 13.2 % (11.0-16.0); White Blood Count 7.3 X10*3/uL (4.8-10.8)
[2023-10-26 13:17] LABS: Appearance Urine Clear; Color Urine Yellow; Glucose Urine UA Negative (Negative); Leukocyte Esterase Urine Small (1+) (Negative); Nitrite Urine Negative (Negative); PH 5.5 (5.0-9.0); Specific Gravity - Urine 1.015 (1.005-1.025); UMIC TRIGGER UACC YES; Urine Blood Negative (Negative); Urine Ketones Negative (Negative); Urine Protein Negative (Neg-Trace)
[2023-10-26 13:22] LABS: Bacteria Urine None Seen (None Seen); Hyaline Casts Urine 0-2 /LPF (0-2); RBC Urine 0-2 /HPF (0-2); UACC Culture Trigger YES
[2023-10-26 14:02] LABS: Alanine Aminotransferase 11 U/L (0-31); Anion Gap 13 (12-20); Aspartate Amino Transferase 15 U/L (5-31); Blood Urea Nitrogen 12 mg/dL (9-16); Calcium 9.8 mg/dL (8.4-10.2); Carbon Dioxide 31 mmol/L (22-29); Chloride 100 mmol/L (96-108); Cholesterol 230 mg/dL (<200); Estimated Glomerular Filt Rate > 60; Glucose Fasting 97 mg/dL (60-99); HDL Cholesterol 64 mg/dL (>40); LDL Cholesterol Calculated 140 mg/dL (<100); Potassium 3.9 mmol/L (3.3-5.1); Sodium 140 mmol/L (135-145); Triglycerides 130 mg/dL (<150); Vitamin D 25-OH Total 23.8 ng/mL (>30)
== END 2023-10-26 12:05 | disposition home or self-care (01) ==
LOC: HO.HMGCLDS 12:04
PROVIDERS: PCP Internal Medicine; Visit Provider Internal Medicine
DX: E55.9 Vitamin D deficiency, unspecified (principal); I48.0 Paroxysmal atrial fibrillation; R35.0 Frequency of micturition; J44.9 Chronic obstructive pulmonary disease, unspecified; Z13.220 Encounter for screening for lipoid disorders; I10 Essential (primary) hypertension
CPT/HCPCS: 36415; 80048; 80061; 81001; 82306; 84450; 84460; 85025; 87086

== ENCOUNTER 2023-11-09 14:10 | Outpatient (AMB) | payer MEDICARE, SELFPAY ==
--- NOTE | 2023-11-09 14:14 | A.OFFVIS_ITS ---
Vital Signs 11/09/23 14:15 Height 5 ft 6 in Weight 155 lb BMI 25.0 Pulse 83 Pulse Source Pulse Oximeter Pulse Oximetry (%) 92 Oxygen Delivery Method Room Air Intake Visit Reasons: COPD Storage Center Manager Required: No Allergies bupropion [From Wellbutrin] Allergy (Verified 11/09/23 14:17) Chest Pain ciprofloxacin Allergy (Verified 11/09/23 14:17) Chest Pain prednisone Allergy (Verified 11/09/23 14:17) Seizure HPI Comments Details: The patient is a 68 year woman with a known history of COPD in addition to lung cancer. Apparently she underwent a screening imaging study demonstrating a right upper lobe pulmonary malignant process. She referred to thoracic surgery where she underwent a right upper lobe lobectomy with curative intent. The patient was indeed confirmed to have cancer and she did not need any chemo or radiation. She did have her serial CT scans every 6 months and now moved over to every year. Back in March 2022 she was admitted to the hospital with palpitations cardiac arrhythmia and atrial fibrillation. During the hospitalization she did have a CTA which was personally by me demonstrating the postsurgical changes in addition to all other subcentimeter pulmonary nodules. in addition to this her CT scan demonstrates evidence of mosaic pattern suggesting of air trapping from her obstructive airway disease. Regards of her COPD the patient was placed on azithromycin which she is has been taking. Although, she is also been taking flecainide which is a concern as far as QT prolongation and severe cardiac arrhythmias. Therefore, the patient is okay stopping the medication at this time. She is using Breztri inhaler which has been affecting beneficial. Does not appear to be activating her atrial fibrillation. In addition to this the patient does have a hiatal hernia. She does sleep elevated and does take a PPI. Currently she is asymptomatic. 05/25/2023 the patient is here for a pulmonary follow-up visit. The patient now is recovering from COVID-19. She does fairly sick. She yet is 2 weeks out. The patient still having some shortness of breath chest tightness and chest congestion. She also feels fatigued. She did not take packs Murphy. She had not taken any medications. She has been using her nebulizer and also her respiratory medicines. She does have a history atrial fibrillation. I will switch her DuoNeb over to Xopenex to minimize in the irritability to the heart. The patient also she underwent pulmonary function studies. It was very hard for her to go them. Consistent with her COPD in addition to diffusion impairment. She does have oxygen available. She will benefit from pulmonary rehabilitation. Will consider this when she improves after having COVID. We did review her CT scan of the chest that she had back in 2021. She does appear to have some irregular airways likely just kinking of the airways postoperatively. Although would not be unreasonable to consider bronchoscopy. We will reassess her in the springtime. If she continues to be symptomatic will consider bronchoscopy otherwise will wait for CT scan that will be done sometime in October. [id number] the patient is here for a pulmonary follow-up visit. The patient overall has been doing okay. She does have a follow-up with thoracic surgery this week to follow-up with her CT scan of the chest. Her CT scan did get the report and is reassuring with postoperative changes and stable pulmonary nodules. She continues to have shortness of breath. Does not seem to respond as well to the respiratory inhaler, Breztri. She would like to try Trelegy instead. I will send to the pharmacy and see flu prior approval. The patient also has a rescue medicine that she can use as needed. She complains of the shortness of breath with activity. Moderate severity even with minimal activity. The patient is likely deconditioned. She needs to start pulmonary rehabilitation. She is agreeable at this time start here. Her last PFTs did demonstrate significant COPD. [facility] Medical History History of seizure disorder History of lung cancer Achalasia of esophagus Osteoporosis HTN (hypertension) KRISTEN on CPAP Lung cancer Asthma-COPD overlap syndrome GERD (gastroesophageal reflux disease) Emphysema/COPD Surgical History S/P partial lobectomy of lung H/O wrist surgery History of cholecystectomy Family History Mother Small cell lung cancer Father Stomach cancer Brother Diabetes Social History Household Members: Spouse, Family and None Housing: House Do you presently have visiting nurse or other home services: No Alcohol intake: current Alcohol intake frequency: does not drink Patient Tobacco Use Status: Former Tobacco user Years Smoked: 30 +/- e-Cigarette/Vaping Use: Never Used Advance Directives Date on File: 04/21/22 service: No Current occupational status: retired Cognitive needs: No Hearing needs: No Vision needs: Yes Review of Systems Const Denies chills, Reports fatigue, Denies fever(s), Denies frequent falls, Denies weakness, Denies weight gain and Denies weight loss Eyes Denies change in vision ENT Denies dizziness and Denies throat swelling Card Denies chest pain, Denies leg edema, Denies lightheadedness, Denies palpitations, Denies dyspnea, Reports dyspnea on exertion, Denies orthopnea and Denies other (loss of consciousness) Resp Reports change in phlegm color, Reports chest congestion, Reports cough, Denies dyspnea, Reports dyspnea on exertion and Reports wheezing GI Denies hematochezia and Denies change in stool character Musc Denies abnormal gait, Denies muscle weakness, Denies numbness, Denies radiating pain into limb and Denies tingling Neuro Denies abnormal gait, Denies dizziness, Denies frequent falls, Denies numbness, Denies tingling and Denies weakness Endo Reports fatigue and Denies palpitations Aller/Immun Denies seasonal rhinorrhea, Denies throat swelling and Reports wheezing Physical Exam Vital Signs: Last Vital Signs Pulse 83 11/09/23 14:15 Pulse Ox 92 11/09/23 14:15 Oxygen Delivery Method Room Air 11/09/23 14:15 BMI result Body Mass Index 25.0 Const General: cooperative, comfortable and no acute distress Orientation/consciousness: patient oriented x3 Chest Chest palpation & inspection: normal inspection of the chest Resp Effort & Inspection: normal respiratory effort and prolonged expiratory phase Auscultation: no wheezes and diminished lung sounds Cardio Rate: regular rate Rhythm: regular rhythm Heart sounds: S1 normal heart sound present and S2 normal heart sound present Neuro General: patient oriented x3 Extrem General: Yes no pedal edema Assessment & Plan Assessment & Plan (1) Asthma-COPD overlap syndrome: Code(s): J44.9 - Chronic obstructive pulmonary disease, unspecified Category: Medical (2) Lung cancer: Code(s): C34.90 - Malignant neoplasm of unspecified part of unspecified bronchus or lung Category: Medical Qualifiers: Laterality: unspecified laterality Lung location: unspecified part of lung Qualified Code(s): C34.90 - Malignant neoplasm of unspecified part of unspecified bronchus or lung (3) KRISTEN on CPAP: Code(s): G47.33 - Obstructive sleep apnea (adult) (pediatric) Category: Medical Plan stop Breztri start Trelegy GÓMEZ as needed continue Xopenex for nebulizer medicine Serial CT chest as per Thoracic surgery, October 2023 was good sleep elevated start pulmonary rehab F/U 6-8 months Orders: Orders Pulmonary Rehab 11/09/23 J44.9 - Chronic obstructive pulmonary disease, unspecified Medications: New vmmmbvaeynv-lpeahuedx-pgkfmipc 200-62.5-25 mcg (Trelegy Ellipta) 1 inh inhalation DAILY 60 ea 12RF 30 days Coding Level of Care Code Est Pt Level 4 (25190) Diagnoses Asthma-COPD overlap syndrome J44.9 Malignant neoplasm of lung, unspecified laterality, unspecified part of lung C34.90 Laterality: unspecified laterality Lung location: unspecified part of lung KRISTEN on CPAP G47.33 Time Spent (min) 17
[2023-11-09 14:15] VITALS: PULSE 83; O2SAT 92; BMI 25.0
== END 2023-11-09 14:41 | disposition home or self-care (01) ==
PROVIDERS: PCP Internal Medicine; Visit Provider Hospitalist
DX: J44.9 Chronic obstructive pulmonary disease, unspecified (principal); C34.90 Malignant neoplasm of unspecified part of unspecified bronchus or lung; G47.33 Obstructive sleep apnea (adult) (pediatric)
CPT/HCPCS: 99214

== ENCOUNTER → 2023-11-09 14:10 | Outpatient (BNVA) | payer MEDICARE, SELFPAY | PROVIDERS: PCP Hospitalist; Visit Provider Hospitalist | DX: J44.9 Chronic obstructive pulmonary disease, unspecified (principal); C34.11 Malignant neoplasm of upper lobe, right bronchus or lung; G47.33 Obstructive sleep apnea (adult) (pediatric); Z90.2 Acquired absence of lung [part of]; Z99.89 Dependence on other enabling machines and devices | CPT/HCPCS: 99212 ==

== ENCOUNTER 2023-11-10 13:47 | Outpatient (REF) | payer MEDICARE, SELFPAY ==
[2023-11-10 16:02] LABS: Urine Cytology See Pathology rpt
[2023-11-10 16:33] LABS: Appearance Urine Clear; Color Urine Yellow; Glucose Urine UA Negative (Negative); Leukocyte Esterase Urine Trace (Negative); Nitrite Urine Negative (Negative); PH 6.5 (5.0-9.0); Specific Gravity - Urine 1.025 (1.005-1.025); UMIC TRIGGER UACC YES; Urine Blood Negative (Negative); Urine Ketones Negative (Negative); Urine Protein Negative (Neg-Trace)
[2023-11-10 17:36] LABS: Bacteria Urine None Seen (None Seen); Hyaline Casts Urine 0-2 /LPF (0-2); WBC Urine 0-5 /HPF (0-5)
== END 2023-11-10 13:48 | disposition home or self-care (01) ==
LOC: HO.HMGCLDS 13:47
PROVIDERS: PCP Internal Medicine; Visit Provider Internal Medicine
DX: R31.29 Other microscopic hematuria (principal)
CPT/HCPCS: 81001; 88112

== ENCOUNTER → 2023-11-13 08:04 | Outpatient (BNVA) | payer MEDICARE, SELFPAY | PROVIDERS: PCP Internal Medicine; Visit Provider Physician Assistant | DX: K22.0 Achalasia of cardia (principal); E55.9 Vitamin D deficiency, unspecified; D12.6 Benign neoplasm of colon, unspecified | CPT/HCPCS: 99202 ==

== ENCOUNTER 2023-11-13 14:51 | Outpatient (AMB) | payer MEDICARE, SELFPAY ==
--- NOTE | 2023-11-13 14:54 | A.OFFVIS_ITS ---
Vital Signs 11/13/23 15:01 BP 138/68 Blood Pressure Location Lt brachial Position Sitting Pulse 81 Intake Visit Reasons: 2nd opinion Intake Note: New consult for Achalasia of cardia/ 2nd opinion Patient cc: N/V on and off, abdominal pain/bloating come and go, acid reflex with some burning sensation, swallowing problem and between diarrhea and constipation, dizziness, tiredness and some fatigue. Relationship Executive Required: No Accompanied by: Family/Other Allergies bupropion [From Wellbutrin] Allergy (Verified 11/13/23 08:25) Chest Pain ciprofloxacin Allergy (Verified 11/13/23 08:25) Chest Pain prednisone Allergy (Verified 11/13/23 08:25) Seizure Medication List - Last Reconciled 11/13/23 by Nayely Lyn MD albuterol sulfate 90 mcg/actuation 2 puffs inhalation Q4H PRN cyslcbbsvj-inlvngje-gqkefznear 160-9-4.8 mcg/actuation (Breztri Aerosphere) inhalations inhalation diltiazem HCl ER 240 mg PO DAILY flecainide 100 mg PO Q12H fluticasone propionate 50 mcg/actuation 1 spray intranasal BEDTIME adbuvtojycz-yervztzfx-tirjdkvf 200-62.5-25 mcg (Trelegy Ellipta) 1 inh inhalation DAILY 30 days hydrochlorothiazide 12.5 mg PO BEDTIME lamotrigine 100 mg PO BID levalbuterol HCl 1.25 mg (3 mL) inhalation BID 30 days magnesium 500 mg PO DAILY nebulizers As directed omeprazole 40 mg PO BID@0630,1630 Oxygen Home Use As directed rivaroxaban (Xarelto) 20 mg PO QPM HPI HPI 2nd opinion: Details: GI clinic visit for this [address] Cook for evaluation of dysphagia and abnormal barium swallow LABS IN [facility] : 10/26/23 Reviewed IMAGING STUDIES: 01/2023 BARIUM SWALLOW SHOWED: 1. Mild laryngeal penetration on thick barium identified, without extension to the true cords. No subglottic aspiration. 2. Mild to moderate cricopharyngeal achalasia. 3. Episodic gastroesophageal reflux to the level of the aortic arch. 4. Small to moderate sized type I hiatus hernia. 5. Somewhat patulous appearing esophagus without mucosal abnormality, stricture, or mass. Disordered esophageal motility consistent with moderate presbyesophagus. 6. Perceived gastric fold thickening, possibly artifactual due to inability of the patient to retain the effervescent granule gas, or possibly representing gastritis. No ulceration or mass evident. 7. Normal duodenal bulb and sweep. ENDOSCOPIC STUDIES: 2014 Colonoscopy was performed by Dr. Hargrove and a small tubular adenoma was removed from the transverse colon TODAY'S VISIT: New consult for a 2nd opinion for dysphagia due to cricopharyngeal achalasia and esophageal motility disorder Patient cc: N/V on and off, abdominal pain/bloating come and go, acid reflex with some burning sensation, swallowing problem and between diarrhea and constipation, dizziness, tiredness and some fatigue. Intermittent dysphagia to solids and liquids for the past year Seen by Dr Maldonado - had a barium study and advised to fu with Dr Hargrove. Hx of heartburn x 30 years and takes Omeprazole 40 mg twice daily Patient denies recent change in appetite or weight. Notes constipation alternating with diarrhea. Has 3-4 episodes of uncontrolled diarrhea every 6 weeks and unable to leave the house - lasts for 3-4 days. Treated with Pelvic floor exercises without improvement in symptoms. Can be constipated with no BM for 3-5 days. Tried taking different medications without relief. Drinks a lot of water and gatorade Patient has asthma, emphysema and is status post removal of for Stage 1 lung cancer in 2020 She is on Home O2 at night and prn during the day On Xarelto for AF Pt denies a hx of sleep apnea - had a sleep study Denies problems with anesthesia in the past. Patient denies known family history of colon polyps, colon cancer. Family hx is positive for esophageal and stomach cancer (Dad, two paternal uncles, Pat GM). Mat Gm had thyroid cancer. Pt worked in a [employer] and has 2 children PAST GI HISTORY BY REVIEW OF MEDICAL RECORDS: Note by ALEXYS Page: 68-year-old female multiple comorbid illness- O2- dependent-SOB referred with achalasia Established with Dr. Hargrove-for many years-seen a couple months ago- referring to Barium- no further recommendations don't worry about it Spoke further with Dr. Hargrove- he declined procedure due to anesthesia risk- She is hypoxic-shewas told unless life threatening no procedures or anesthesia- Barium swallow 01/2023- Follows with ENT- Saw pcp-Dr. Ni-referred for 2nd opinion She has difficulty swallowing- 2020-lung [place]-surgical- Dr. Farooq Espinosa-3 yr scan-no recurrence She was seen previously @ [facility]- pulmonary-Sz- DX-disorder- 2019- Appetite is good- no wt loss Colonoscopy- Dr. Beena Tran-[facility] Sz. disorder- [facility] Medical History History of seizure disorder History of lung cancer Achalasia of esophagus Osteoporosis HTN (hypertension) KRISTEN on CPAP Lung cancer Asthma-COPD overlap syndrome GERD (gastroesophageal reflux disease) Emphysema/COPD Surgical History S/P partial lobectomy of lung H/O wrist surgery History of cholecystectomy Family History Mother Small cell lung cancer Father Stomach cancer Brother Diabetes Throat cancer Social History Household Members: Spouse, Family and None Housing: House Do you presently have visiting nurse or other home services: No Alcohol intake: current Alcohol intake frequency: does not drink Patient Tobacco Use Status: Former Tobacco user Years Smoked: 30 +/- e-Cigarette/Vaping Use: Never Used Advance Directives Date on File: 04/21/22 service: No Current occupational status: retired Cognitive needs: No Hearing needs: No Vision needs: Yes Review of Systems Const Denies chills, Reports fatigue, Denies fever(s), Denies frequent falls, Denies weakness, Denies weight gain and Denies weight loss Eyes Denies change in vision ENT Denies dizziness and Denies throat swelling Card Denies chest pain, Denies leg edema, Denies lightheadedness, Denies palpitations, Denies dyspnea, Reports dyspnea on exertion, Denies orthopnea and Denies other (loss of consciousness) Resp Reports change in phlegm color, Reports chest congestion, Reports cough, Denies dyspnea, Reports dyspnea on exertion and Reports wheezing GI Denies hematochezia and Denies change in stool character Musc Denies abnormal gait, Denies muscle weakness, Denies numbness, Denies radiating pain into limb and Denies tingling Neuro Denies abnormal gait, Denies dizziness, Denies frequent falls, Denies numbness, Denies tingling and Denies weakness Endo Reports fatigue and Denies palpitations Aller/Immun Denies seasonal rhinorrhea, Denies throat swelling and Reports wheezing Physical Exam Vital Signs: Last Vital Signs Pulse 81 11/13/23 15:01 BP 138/68 11/13/23 15:01 Const General: cooperative, comfortable and no acute distress Orientation/consciousness: patient oriented x3 Chest Chest palpation & inspection: normal inspection of the chest and other (scar in right lower chest of past lung surgery) Resp Effort & Inspection: normal respiratory effort and prolonged expiratory phase Auscultation: no wheezes and diminished lung sounds Cardio Rate: regular rate Rhythm: regular rhythm Heart sounds: S1 normal heart sound present and S2 normal heart sound present Neuro General: patient oriented x3 Extrem General: Yes no pedal edema Assessment & Plan Assessment & Plan (1) Tubular adenoma of colon: Comment: 2015- Adenoma- Dr. Hargrove Code(s): D12.6 - Benign neoplasm of colon, unspecified Category: Medical (2) Vitamin D deficiency: Code(s): E55.9 - Vitamin D deficiency, unspecified Category: Medical (3) Cricopharyngeal achalasia: Code(s): K22.0 - Achalasia of cardia Category: Medical Plan 68 YF with intermittent dysphagia to solids and liquids for the past year Dysphagia is likely a combination of esophageal motility disorder and cricopharyngeal achalasia as seen on barium swallow Pt complains of constipated with no BM for 3-5 days and episodes of uncontrolled diarrhea every 6 weeks - she likely has chronic constipation followed by paradoxical diarrhea. Barium swallow results reviewed with the patient. She was advised that further evaluation with EGD can be high risk and not likely to provide prison relief of dysphagia Pt was advised to: 1. Schedule a modified barium swallow with speech pathologist. 2. To take a soft diet, chew her food well and take it with sips of fluids 3. Take Senna 1 tablet or capsule at bedtime for a week and increase to 2 tab/capsules if needed FU in 3 months after modified barium swallow Orders: Orders FL barium swallow modified Today K22.0 - Achalasia of cardia Medications: New sennosides-docusate sodium 8.6-50 mg (Senna Plus) 2 tab-caps (2 x 8.6-50 mg) PO BEDTIME 60 days 120 caps 1RF Coding Level of Care Code New Pt Level 4 (58969) Diagnoses Tubular adenoma of colon D12.6 Vitamin D deficiency E55.9 Cricopharyngeal achalasia K22.0 Time Spent (min) 28
[2023-11-13 15:01] VITALS: BP 138/68; PULSE 81
== END 2023-11-13 16:03 | disposition home or self-care (01) ==
LOC: HO.HGI 14:51
PROVIDERS: PCP Internal Medicine; Visit Provider Internal Medicine Gastroenterology
DX: D12.6 Benign neoplasm of colon, unspecified (principal); E55.9 Vitamin D deficiency, unspecified; K22.0 Achalasia of cardia
CPT/HCPCS: 99204

== ENCOUNTER 2024-01-03 13:29 | Outpatient (AMB) | payer MEDICARE, SELFPAY ==
--- NOTE | 2024-01-03 13:43 | A.OFFVIS_ITS ---
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 Accompanied by: Self / Same As Patient Allergies bupropion [From Wellbutrin] Allergy (Verified 11/13/23 08:25) Chest Pain ciprofloxacin Allergy (Verified 11/13/23 08:25) Chest Pain prednisone Allergy (Verified 11/13/23 08:25) Seizure Medication List - Last Reconciled 01/03/24 by Sumeet Trevino MD albuterol sulfate 90 mcg/actuation 2 puffs inhalation Q4H PRN perhswtedc-wbmgssme-ewwlewaecv 160-9-4.8 mcg/actuation (Breztri Aerosphere) inhalations inhalation diltiazem HCl ER 240 mg PO DAILY flecainide 100 mg PO Q12H fluticasone propionate 50 mcg/actuation 1 spray intranasal BEDTIME hydrochlorothiazide 12.5 mg PO BEDTIME lamotrigine 100 mg PO BID levalbuterol HCl 1.25 mg (3 mL) inhalation BID 30 days magnesium 500 mg PO DAILY nebulizers As directed omeprazole 40 mg PO BID@0630,1630 60 days Oxygen Home Use As directed rivaroxaban (Xarelto) 20 mg PO QPM sennosides-docusate sodium 8.6-50 mg (Senna Plus) 2 tab-caps (2 x 8.6-50 mg) PO BEDTIME 60 days HPI Comments Details: 68-year-old female who is here for follow-up. She has background history of paroxysmal atrial fibrillation. She had chest pains when she had atrial fibrillation. She had precordial T-wave inversions. We tried to a stress test but she collapsed while exercising without any ECG changes and etiology was unclear. After discussion she was taken cardiac catheterization. Cardiac catheterization showed normal filling pressures without any significant coronary disease. After discussion she was started on flecainide. She is returning and denying any palpitations. She is saying she is short of breath and will be seeing her motor driver in a week. No fevers or chills. Otherwise stable clinically. 02/22/2023: She returns for follow-up. She is denying any chest discomfort. She has bronchitis and has been coughing. It appears she was receiving a zithromycin for suppression of chronic bronchitis. Her recent QT interval was prolonged. She was taken off the azithromycin yesterday. EKG in the office is showing prolonged QT interval of 504 milliseconds. No dizziness or syncope. Otherwise taking medications regularly. 08/30/2023: She returns for follow-up. She has been doing well. No chest pain or shortness of breath. Her is undergoing aortic valve replacement at [facility]. Taking medications regularly and tolerating them well. 01/03/24: She is here for f/u. She has been doing good. She has occasional palpitations and overall has been stable. Taking meds regularly. [facility] Medical History History of seizure disorder History of lung cancer Achalasia of esophagus Osteoporosis HTN (hypertension) KRISTEN on CPAP Lung cancer Asthma-COPD overlap syndrome GERD (gastroesophageal reflux disease) Emphysema/COPD Surgical History S/P partial lobectomy of lung H/O wrist surgery History of cholecystectomy Family History Mother Small cell lung cancer Father Stomach cancer Brother Diabetes Throat cancer Social History Household Members: Spouse, Family and None Housing: House Do you presently have visiting nurse or other home services: No Alcohol intake: current Alcohol intake frequency: does not drink Patient Tobacco Use Status: Former Tobacco user Years Smoked: 30 +/- e-Cigarette/Vaping Use: Never Used Advance Directives Date on File: 04/21/22 service: No Current occupational status: retired Cognitive needs: No Hearing needs: No Vision needs: Yes Review of Systems Const Denies chills, Denies fatigue, Denies fever(s), Denies frequent falls, Denies weakness, Denies weight gain and Denies weight loss ENT Denies dizziness Card Denies chest pain, Denies leg edema, Denies lightheadedness, Denies palpitations, Denies dyspnea and Denies dyspnea on exertion Resp Denies cough, Denies dyspnea and Denies dyspnea on exertion GI Denies hematochezia Musc Denies abnormal gait, Denies muscle weakness, Denies numbness, Denies radiating pain into limb and Denies tingling Neuro Denies abnormal gait, Denies dizziness, Denies frequent falls, Denies numbness, Denies tingling and Denies weakness Endo Denies fatigue and Denies palpitations Physical Exam Vital Signs: Last Vital Signs Pulse 74 01/03/24 13:44 BP 130/60 01/03/24 13:44 BMI result Body Mass Index 24.6 GENERAL APPEARANCE: in no acute distress, pleasant. NECK: no carotid bruit, no jugular venous distention. SKIN: Poison ingrid over the arms and legs. HEART: no murmurs, regular rate and rhythm. LUNGS: clear to auscultation bilaterally. ABDOMEN: soft, nontender. EXTREMITIES: no edema. PERIPHERAL PULSES: equal. NEUROLOGIC: No gross deficits, AAO X 3 Office Procedures EKG Details: Sinus rhythm 74 beats per minute, normal axis, nonspecific ST T-wave changes, QTC 445 milliseconds. [id number], Complete Assessment & Plan Assessment & Plan (1) PAF (paroxysmal atrial fibrillation): Code(s): I48.0 - Paroxysmal atrial fibrillation Category: Medical (2) HTN (hypertension): Code(s): I10 - Essential (primary) hypertension Category: Medical Plan Pleasant 68 year female who is here for follow-up. She had paroxysmal atrial fibrillation in setting of seizures. She has recurrent episode and eventually was started on flecainide. She has done well with flecainide and diltiazem. Blood pressure is well controlled. No chest pain or shortness of breath. Overall clinically stable. She will see us back in 6 months. Thank you for allowing me to participate in the care of your patient. Please feel free to contact me if you have any questions. Coding Level of Care Code Est Pt Level 4 (48174) Diagnoses PAF (paroxysmal atrial fibrillation) I48.0 HTN (hypertension) I10 CPT Codes EKG - CPT: 10184-[id number], Complete ([id number])
[2024-01-03 13:44] VITALS: BP 130/60; PULSE 74; BMI 24.6
== END 2024-01-03 14:12 | disposition home or self-care (01) ==
PROVIDERS: PCP Hospitalist; Visit Provider Internal Medicine Cardiovascular Disease
DX: I48.0 Paroxysmal atrial fibrillation (principal); I10 Essential (primary) hypertension
CPT/HCPCS: 93010; 99214

== ENCOUNTER → 2024-01-03 13:29 | Outpatient (BNVA) | payer MEDICARE, SELFPAY | PROVIDERS: PCP Hospitalist; Visit Provider Internal Medicine Cardiovascular Disease | DX: I48.0 Paroxysmal atrial fibrillation (principal); I10 Essential (primary) hypertension | CPT/HCPCS: 93005; 99212 ==

== ENCOUNTER 2024-01-04 08:02 | Outpatient (AMB) | payer MEDICARE, SELFPAY ==
[2024-01-04 08:17] VITALS: BP 122/66; PULSE 78; TEMP 36.6; O2SAT 91; BMI 24.5
--- NOTE | 2024-01-04 08:17 | AM.OFFWIN_ITS ---
Intake Vital Signs 01/04/24 08:17 Height 5 ft 6 in Weight 152 lb BMI 24.5 BP 122/66 Blood Pressure Location Rt brachial Position Sitting Pulse 78 Pulse Source Pulse Oximeter Temp 97.8 F Temp Source Temporal Artery Scan Pulse Oximetry (%) 91 L Oxygen Delivery Method Room Air Intake Visit Reasons: Possible UTI Intake Note: pt is here for possible uti Patient Tobacco Use Status: Former Tobacco user Allergies bupropion [From Wellbutrin] Allergy (Verified 01/04/24 08:17) Chest Pain ciprofloxacin Allergy (Verified 01/04/24 08:17) Chest Pain prednisone Allergy (Verified 01/04/24 08:17) Seizure Do you need a note to return to daycare/school/sports/work: Yes HPI HPI Comments History of Present Illness Details Patient is a 68-year-old female complaining of 2 days of pain with urination, pain in the suprapubic area and low back pain. She denies any blood in her urine or history of kidney stones or fevers. She states she is on a couple of cardiac medications so she needs to run any antibiotics by her machine tester before she takes them but she was here before and got a medication for UTI that worked well that was compatible with her cardiac meds. [facility] Medical History History of seizure disorder History of lung cancer Achalasia of esophagus Osteoporosis HTN (hypertension) KRISTEN on CPAP Lung cancer Asthma-COPD overlap syndrome GERD (gastroesophageal reflux disease) Emphysema/COPD Surgical History S/P partial lobectomy of lung H/O wrist surgery History of cholecystectomy Family History Mother Small cell lung cancer Father Stomach cancer Brother Diabetes Throat cancer Social History Household Members: Spouse, Family and None Housing: House Do you presently have visiting nurse or other home services: No Alcohol intake: current Alcohol intake frequency: does not drink Patient Tobacco Use Status: Former Tobacco user Years Smoked: 30 +/- e-Cigarette/Vaping Use: Never Used Advance Directives Date on File: 04/21/22 service: No Current occupational status: retired Cognitive needs: No Hearing needs: No Vision needs: Yes Review of Systems Const All systems reviewed & are unremarkable except as noted in HPI and below Physical Exam Vital Signs: Last Vital Signs Temp 97.8 F 01/04/24 08:17 Pulse 78 01/04/24 08:17 BP 122/66 01/04/24 08:17 Pulse Ox 91 L 01/04/24 08:17 Oxygen Delivery Method Room Air 01/04/24 08:17 BMI result Body Mass Index 24.5 Const General: cooperative, healthy appearing, comfortable, no acute distress and well developed Orientation/consciousness: patient oriented x3 Limitations: no limitations HEENT Head: Yes normal to inspection Eyes General: appearance normal, both eyes and all related structures Neck Neck: Yes normal visual inspection and Yes full ROM Resp Effort & Inspection: normal respiratory effort and able to speak in complete sentences Skin General skin exam: no rashes or lesions noted Neuro General: patient oriented x3 Extrem General: Yes normal to inspection Results AMB Urinalysis, Automated UA Leukoctes 70 Tonya/uL Last Edit by En Gomes CMA on 01/04/24 08:50 UA Nitrite Positive Last Edit by En Gomes CMA on 01/04/24 08:50 UA Urobilinogen 0.2 mg/dL Last Edit by En Gomes CMA on 01/04/24 08 :50 UA Protein 15 mg/dL Last Edit by En Gomes CMA on 01/04/24 08:50 UA pH 5.5 Last Edit by En Gomes CMA on 01/04/24 08:50 UA Blood 80 Juan Francisco/uL Last Edit by En Gomes CMA on 01/04/24 08:50 UA Specific [place] 1.025 Last Edit by En Gomes CMA on 01/04/24 08:50 UA Ketone Negative Last Edit by En Gomes CMA on 01/04/24 08:50 UA Bilirubin 0 mg/dL Last Edit by En Gomes CMA on 01/04/24 08:50 UA Glucose 0 mg/dL Last Edit by En Gomes CMA on 01/04/24 08:50 Results Reviewed Results Reviewed: Laboratory Last Values Urine pH (Auto) 5.5 01/04/24 08:49 Specific [place] (Auto) 1.025 01/04/24 08:49 Urine Protein (Auto) 15 mg/dL 01/04/24 08:49 Glucose (UA)(Auto) 0 mg/dL 01/04/24 08:49 Urine Ketones (Auto) Negative 01/04/24 08:49 Urine Blood (Auto) 80 Juan Francisco/uL 01/04/24 08:49 Urine Nitrite (Auto) Positive 01/04/24 08:49 Urine Bilirubin (Auto) 0 mg/dL 01/04/24 08:49 Urine Urobilinogen (Auto) 0.2 mg/dL 01/04/24 08:49 Leukocyte Esterase (Auto) 70 Tonya/uL 01/04/24 08:49 Assessment & Plan Assessment & Plan (1) UTI (urinary tract infection): Code(s): N39.0 - Urinary tract infection, site not specified Qualifiers: Hematuria presence: with hematuria Urinary tract infection type: acute cystitis Qualified Code(s): N30.01 - Acute cystitis with hematuria Plan: Send prescription to pharmacy for the same medication that worked well for her and was compatible with her cardiac meds for her last UTI. I recommended if she develops a fever or blood in her urine or increasing low back pain that she go to the emergency department to rule out pyelonephritis or kidney stones. Plan See above Orders: Orders AMB Urinalysis Automated Today Z13.9 - Encounter for screening, unspecified Medications: New cefuroxime axetil 500 mg PO Q12H 10 tabs 0RF Coding Level of Care Code Est Pt Level 3 (20522) Diagnoses Acute cystitis with hematuria N30.01 Hematuria presence: with hematuria Urinary tract infection type: acute cystitis
== END 2024-01-04 09:13 | disposition home or self-care (01) ==
PROVIDERS: PCP Hospitalist; Visit Provider Physician Assistant
DX: N30.01 Acute cystitis with hematuria (principal)
CPT/HCPCS: 81003; 99213

== ENCOUNTER 2024-01-17 13:10 | Outpatient (AMB) | payer MEDICARE, SELFPAY ==
--- NOTE | 2024-01-17 13:23 | MHC.OFFWIV ---
Intake Vital Signs 01/17/24 13:24 Height 5 ft 6 in Weight 153 lb BMI 24.7 BP 132/76 Blood Pressure Location Rt brachial Position Sitting Pulse 70 Pulse Source Pulse Oximeter Temp 98.2 F Temp Source Oral Pulse Oximetry (%) 98 Oxygen Delivery Method Room Air Intake Visit Reasons: EP ?UTI Intake Note: pt c/o urinary frequency, urgency and discomfort, no burning. Started a week ago Patient Tobacco Use Status: Former Tobacco user Allergies bupropion [From Wellbutrin] Allergy (Verified 01/17/24 13:23) Chest Pain ciprofloxacin Allergy (Verified 01/17/24 13:23) Chest Pain prednisone Allergy (Verified 01/17/24 13:23) Seizure Do you need a note to return to daycare/school/sports/work: No HPI HPI Comments History of Present Illness Details Patient is a 68-year-old female complaining of a recurrent urinary tract infection. She states she was here at this clinic on January 03, she was given a prescription for her UTI which she completed in fall and then 2 days after she finished her prescription, the symptoms came back of increase urination, increased frequency and burning with urination. She denies any low back pain or fevers. [facility] Medical History History of seizure disorder History of lung cancer Achalasia of esophagus Osteoporosis HTN (hypertension) KRISTEN on CPAP Lung cancer Asthma-COPD overlap syndrome GERD (gastroesophageal reflux disease) Emphysema/COPD Surgical History S/P partial lobectomy of lung H/O wrist surgery History of cholecystectomy Family History Mother Small cell lung cancer Father Stomach cancer Brother Diabetes Throat cancer Social History Household Members: Spouse, Family and None Housing: House Do you presently have visiting nurse or other home services: No Alcohol intake: current Alcohol intake frequency: does not drink Patient Tobacco Use Status: Former Tobacco user Years Smoked: 30 +/- e-Cigarette/Vaping Use: Never Used Advance Directives Date on File: 04/21/22 service: No Current occupational status: retired Cognitive needs: No Hearing needs: No Vision needs: Yes Review of Systems Const All systems reviewed & are unremarkable except as noted in HPI and below Physical Exam Vital Signs: Last Vital Signs Temp 98.2 F 01/17/24 13:24 Pulse 70 01/17/24 13:24 BP 132/76 01/17/24 13:24 Pulse Ox 98 01/17/24 13:24 Oxygen Delivery Method Room Air 01/17/24 13:24 BMI result Body Mass Index 24.7 Const General: cooperative, healthy appearing, comfortable, no acute distress and well developed Orientation/consciousness: patient oriented x3 Limitations: no limitations HEENT Head: Yes normal to inspection Eyes General: appearance normal, both eyes and all related structures Neck Neck: Yes normal visual inspection and Yes full ROM Resp Effort & Inspection: normal respiratory effort and able to speak in complete sentences Skin General skin exam: no rashes or lesions noted Neuro General: patient oriented x3 Extrem General: Yes normal to inspection Results AMB Urinalysis, Automated UA Leukoctes 0 Tonya/uL Last Edit by Abelardo Love CMA on 01/17/24 13:37 UA Nitrite Negative Last Edit by Abelardo Love CMA on 01/17/24 13:37 UA Urobilinogen 0.2 mg/dL Last Edit by Abelardo Love CMA on 01/17/24 13:37 UA Protein 0 mg/dL Last Edit by Abelardo Love CMA on 01/17/24 13:37 UA pH 6.0 Last Edit by Abelardo Love CMA on 01/17/24 13:37 UA Blood 10 Juan Francisco/uL Last Edit by Abelardo Love CMA on 01/17/24 13:37 UA Specific [place] 1.010 Last Edit by Abelardo Love CMA on 01/17/24 13:37 UA Ketone Negative Last Edit by Abelardo Love CMA on 01/17/24 13:37 UA Bilirubin 0 mg/dL Last Edit by Abelardo Love CMA on 01/17/24 13:37 UA Glucose 0 mg/dL Last Edit by Abelardo Love CMA on 01/17/24 13:37 Assessment & Plan Assessment & Plan (1) Recurrent UTI: Code(s): N39.0 - Urinary tract infection, site not specified Plan: UA negative for infection, positive for blood. As this is a recurrent infection, we will send Bactrim. Did recommend if this does not resolve her symptoms it is imperative she follow-up with her primary care doctor for further workup as she has a hx of adenocarcinoma. Plan see above Orders: Orders AMB Urinalysis Automated Today Merle Delgado NP Z13.9 - Encounter for screening, unspecified Medications: New sulfamethoxazole-trimethoprim 800-160 mg (Bactrim DS) 1 tab PO Q12H 14 tabs 0RF Cecy Renner PA-C Coding Level of Care Code Est Pt Level 3 (53423) Diagnoses Recurrent UTI N39.0
[2024-01-17 13:24] VITALS: BP 132/76; PULSE 70; TEMP 36.8; O2SAT 98; BMI 24.7
== END 2024-01-17 14:16 | disposition home or self-care (01) ==
PROVIDERS: PCP Internal Medicine; Visit Provider Physician Assistant
DX: N39.0 Urinary tract infection, site not specified (principal); R35.0 Frequency of micturition
CPT/HCPCS: 81003; 99213

== ENCOUNTER 2024-01-17 14:50 | Outpatient (REF) | payer MEDICARE, SELFPAY | END 2024-01-17 14:51 | disposition home or self-care (01) | LOC: HO.LAB 14:50 | PROVIDERS: Visit Provider Physician Assistant | DX: N39.0 Urinary tract infection, site not specified (principal) | CPT/HCPCS: 87086 ==

== ENCOUNTER 2024-02-20 09:02 | Outpatient (AMB) | payer MEDICARE, SELFPAY ==
[2024-02-20 09:09] VITALS: BP 124/62; PULSE 80; O2SAT 91; BMI 24.7
--- NOTE | 2024-02-20 09:09 | MHC.OFFWIV ---
Intake Vital Signs 02/20/24 09:09 Height 5 ft 6 in Weight 153 lb BMI 24.7 BP 124/62 Blood Pressure Location Lt brachial Position Sitting Pulse 80 Pulse Source Pulse Oximeter Pulse Oximetry (%) 91 L Oxygen Delivery Method Room Air Intake Visit Reasons: EP ?UTI Patient Tobacco Use Status: Former Tobacco user Allergies bupropion [From Wellbutrin] Allergy (Verified 01/17/24 13:23) Chest Pain ciprofloxacin Allergy (Verified 01/17/24 13:23) Chest Pain prednisone Allergy (Verified 01/17/24 13:23) Seizure Medication List - Last Reconciled 02/20/24 by Mirta Romero MD albuterol sulfate 90 mcg/actuation 2 puffs inhalation Q4H PRN sxmxigtwdq-yhvjfnvl-exxefqocrl 160-9-4.8 mcg/actuation (Breztri Aerosphere) inhalations inhalation diltiazem HCl ER 240 mg PO DAILY flecainide 100 mg PO Q12H fluticasone propionate 50 mcg/actuation 1 spray intranasal BEDTIME hydrochlorothiazide 12.5 mg PO BEDTIME lamotrigine 100 mg PO BID levalbuterol HCl 1.25 mg (3 mL) inhalation BID 30 days magnesium 500 mg PO DAILY nebulizers As directed omeprazole 40 mg PO BID@0630,1630 60 days Oxygen Home Use As directed rivaroxaban (Xarelto) 20 mg PO QPM sennosides-docusate sodium 8.6-50 mg (Senna Plus) 2 tab-caps (2 x 8.6-50 mg) PO BEDTIME 60 days Do you need a note to return to daycare/school/sports/work: No HPI EP ?UTI HPI Details Patient is 68-year-old female came in today to be evaluated for possible urinary tract infection Patient says that she knows when she has 1 Symptoms started last night she could not sleep, was going to bathroom frequently And this morning started having dysuria There is no fever no chills there is no nausea vomiting slight discomfort suprapubic No new back pain UA shows signs of infection along with blood 2+ Macrobid sent to be taken 2 times a day for 5 days Urine will be sent for culture [facility] Medical History History of seizure disorder History of lung cancer Achalasia of esophagus Osteoporosis HTN (hypertension) KRISTEN on CPAP Lung cancer Asthma-COPD overlap syndrome GERD (gastroesophageal reflux disease) Emphysema/COPD Surgical History S/P partial lobectomy of lung H/O wrist surgery History of cholecystectomy Family History Mother Small cell lung cancer Father Stomach cancer Brother Diabetes Throat cancer Social History Household Members: Spouse, Family and None Housing: House Do you presently have visiting nurse or other home services: No Alcohol intake: current Alcohol intake frequency: does not drink Patient Tobacco Use Status: Former Tobacco user Years Smoked: 30 +/- e-Cigarette/Vaping Use: Never Used Advance Directives Date on File: 04/21/22 service: No Current occupational status: retired Cognitive needs: No Hearing needs: No Vision needs: Yes Review of Systems Const All systems reviewed & are unremarkable except as noted in HPI and below Physical Exam Vital Signs: Last Vital Signs Pulse 80 02/20/24 09:09 BP 124/62 02/20/24 09:09 Pulse Ox 91 L 02/20/24 09:09 Oxygen Delivery Method Room Air 02/20/24 09:09 BMI result Body Mass Index 24.7 Const General: no acute distress Orientation/consciousness: patient oriented x3 Eyes General: appearance normal, both eyes and all related structures Resp Effort & Inspection: normal respiratory effort and able to speak in complete sentences GI Other: Mild suprapubic discomfort General: Yes no CVA tenderness Back/Spine/Pelvis Back: no CVA tenderness Neuro General: patient oriented x3 Psych Mental Status: mental status grossly normal Assessment & Plan Assessment & Plan (1) Acute cystitis: Code(s): N30.00 - Acute cystitis without hematuria Qualifiers: Hematuria presence: with hematuria Qualified Code(s): N30.01 - Acute cystitis with hematuria Plan Patient is 68-year-old female came in today to be evaluated for possible urinary tract infection Patient says that she knows when she has 1 Symptoms started last night she could not sleep, was going to bathroom frequently And this morning started having dysuria There is no fever no chills there is no nausea vomiting slight discomfort suprapubic No new back pain UA shows signs of infection along with blood 2+ Macrobid sent to be taken 2 times a day for 5 days Urine will be sent for culture Orders: Orders Urine Culture Today N30.01 - Acute cystitis with hematuria Medications: New nitrofurantoin monohyd/m-cryst 100 mg must administer with a meal/food 100 mg PO Q12H 5 days 10 caps 0RF Urinary infection Coding Level of Care Code Est Pt Level 3 (85615) Diagnoses Acute cystitis with hematuria N30.01 Hematuria presence: with hematuria
== END 2024-02-20 09:36 | disposition home or self-care (01) ==
PROVIDERS: PCP Internal Medicine; Visit Provider Internal Medicine
DX: N30.01 Acute cystitis with hematuria (principal)
CPT/HCPCS: 99213

== ENCOUNTER 2024-02-20 12:54 | Outpatient (REF) | payer MEDICARE, SELFPAY | END 2024-02-20 12:55 | disposition home or self-care (01) | LOC: HO.LNP 12:54 | PROVIDERS: Visit Provider Internal Medicine | DX: N30.00 Acute cystitis without hematuria (principal) | CPT/HCPCS: 87086; 87088; 87186 ==

== ENCOUNTER 2024-03-05 12:24 | Observation (INO) | payer MEDICARE, SELFPAY ==
[2024-03-05] VITALS (11 sets, daily range): BP systolic 124–148; BP diastolic 64–83; PULSE 67–85; RESP 16–18; TEMP 36.4–36.9; O2SAT 89–96; BMI 25.0; BMI 24.0
--- NOTE | ~2024-03-05 | MR_ITS ---
EXAMINATION: MR BRAIN WITHOUT CONTRAST CLINICAL INFORMATION: Left facial numbness. Expressive aphasia. COMPARISON: CT head from 03/05/2024. Brain MRI from 05/11/2022. TECHNIQUE: MRI of the brain was obtained using routine sequences without contrast. FINDINGS: No focal restricted diffusion is demonstrated to suggest acute or subacute cerebral ischemia. No evidence of acute or chronic hemorrhagic products on heme-sensitive imaging. Scattered periventricular and deep white matter T2 FLAIR hyperintensities consistent with mild underlying microangiopathy. The ventricles are normal in morphology and size. Stable lobulated T2 FLAIR hyperintense structure ventral to the medulla potentially representing a small arachnoid cyst. No abnormal mass effect. No midline shift. Normal appearance of the pituitary gland. Normal positioning of the cerebellar tonsils. Normal arterial and venous vascular flow voids are present. Normal, homogeneous marrow signal. Mild mucosal thickening of the paranasal sinuses. Moderate left and mild right mastoid effusions. MR/MR head/brain wo con IMPRESSION: 1. No acute intracranial abnormalities. 2. Mild underlying microangiopathy. Electronically signed by: Jas Prasad DO 03/05/2024 06:25 PM EDT
--- NOTE | ~2024-03-05 | CT_ITS ---
EXAMINATION: CT HEAD WITHOUT CONTRAST CLINICAL INFORMATION: Left facial numbness. COMPARISON: Head CT dated 04/02/2022. TECHNIQUE: Contiguous axial imaging was performed from the skullbase to vertex without intravenous administration of contrast. This CT examination was performed using dose optimization techniques as appropriate, variously including the following: *Automated exposure control *Adjustment of mA and/or kV according to patient size (this includes techniques or standardized protocols for targeted exams where dose is matched to indication/reason for exam; i.e. extremities or head) *Use of iterative reconstruction technique DLP: 637 mGy-cm. FINDINGS: There is no evidence of acute intracranial hemorrhage or territorial infarction. No abnormal mass effect or midline shift is seen. No extra-axial fluid collections are identified. The ventricles are normal in size. Mild generalized brain parenchymal volume loss evident. There is no abnormal attenuation within the brain parenchyma. The osseous structures and soft tissues are normal. The mastoid air cells are well aerated. There are aerosolized mucosal secretions in the left sphenoid sinus and very mild ethmoid sinus mucosal thickening. CT/CT head/brain wo IV con IMPRESSION: No acute intracranial pathology. Nonspecific mild to moderate aerosolized secretions in the left sphenoid sinus. Electronically signed by: Shai To MD 03/05/2024 03:30 PM EDT
--- NOTE | ~2024-03-05 | XR_ITS ---
EXAMINATION: XR CHEST CLINICAL INFORMATION: Shortness of breath COMPARISON: 03/15/23 TECHNIQUE: 2 views of the chest were obtained. FINDINGS: Devices project over the patient. The cardiac silhouette is not enlarged. There is no hilar mass. The central vessels taper promptly. There are large lung volumes. Linear opacity in the medial right upper lung. There are a few prominent markings in the lower lung zones similar to previous. There is some blunting of the right lateral costophrenic sulcus and there is some increased density at the right base posteriorly. No pneumothorax. There are surgical clips in the right upper quadrant XR/XR chest 2V IMPRESSION: No dense focal pneumonia. Hyperinflation. There is some reaction around the right hemidiaphragm which could be chronic. Previous study better demonstrated metallic suture around the right hilum. Electronically signed by: Jaun Linton MD 03/05/2024 04:29 PM EDT
--- NOTE | 2024-03-05 12:34 | ECG_ITS ---
Test Reason : SYNCOPE Blood Pressure : / mmHG Vent. Rate : 074 BPM Atrial Rate : 074 BPM P-R Int : 160 ms QRS Dur : 084 ms QT Int : 394 ms P-R-T Axes : 058 070 071 degrees QTc Int : 437 ms Normal sinus rhythm Nonspecific ST and T wave abnormality Abnormal ECG When compared with ECG of 15-MAR-2023 12:24, Nonspecific T wave abnormality now evident in Inferior leads T wave inversion now evident in Lateral leads Referred By: Generic ED Physician Electronically Signed By:TOÑO JIMENEZ
--- NOTE | 2024-03-05 14:15 | ED_ITS ---
HPI - Syncope General Chief Complaint: Syncope Stated Complaint: confusion Time Seen by Provider: 03/05/24 14:14 Source: patient Mode of arrival: wheelchair Limitations: no limitations History of Present Illness ED Provider: Seth Puckett PA-C HPI narrative: 68-year-old female with history of HTN, asthma/COPD, osteoporosis, paroxysmal AFib on Xarelto, TIA, achalasia, lung cancer s/p resection 10/2020, seizures, KRISTEN on CPAP who presents to the ER from pulmonary rehab for evaluation of dizziness, lightheadedness, shortness of breath and nausea that started when she was exercising today with an arm bike. She states this is her 3rd visit at pulmonary rehab. She was able to perform the leg bike today without issue. While using the arm bike she developed acute onset of worsening shortness of breath, followed by significant nausea where she thought she was going to vomit, dizziness and lightheadedness where she thought she was going to pass out. She reports having word-finding difficulty and not being able to speak well at the time. She states she could not get the words out. She also developed left- sided facial numbness and tingling at the time. She reports history of a TIA in the past with right-sided numbness on her face. She is not on aspirin or Plavix. She denies any weakness or numbness in her arms or hands, legs or feet. No difficulty walking. MD complaint: felt faint Onset (ago): minute(s) Duration of episode: 5 -: minutes(s) Prodromal symptoms: lightheaded, heart racing, shortness of breath and nausea/vomiting Witnessed: Yes - by Bystander Context: during exertion Injuries sustained associated with event: none Current symptoms: other (resolving left sided facial numbness/tightness) History: seizure disorder and other (hx TIA) Treatments prior to arrival: none Related Data Home Medications ?Medication ?Instructions ?Recorded ?Confirmed albuterol sulfate 90 mcg/actuation 2 puff inhalation Q4H PRN 04/02/22 02/20/24 aerosol inhaler Shortness Of Breath fluticasone propionate 50 1 spray intranasal BEDTIME 04/21/22 02/20/24 mcg/actuation nasal spray,suspension Oxygen Home Use 02/21/23 02/20/24 budesonide 160 mcg-glycopyr 9 inh inhalation 02/21/23 02/20/24 mcg-formot 4.8 mcg/actuation HFA inhaler (Breztri Aerosphere) nebulizers 02/21/23 02/20/24 magnesium 250 mg tablet 500 mg PO DAILY 03/20/23 02/20/24 Previous Rx's ?Medication ?Instructions ?Recorded lamotrigine 100 mg tablet 100 mg PO BID #60 tabs 04/04/22 levalbuterol HCl 1.25 mg/3 mL 1.25 mg (3 mL) inhalation BID 30 02/21/23 solution for nebulization days #180 mL rivaroxaban 20 mg tablet (Xarelto) 20 mg PO QPM #30 tabs 06/19/23 flecainide 100 mg tablet 100 mg PO Q12H #180 tabs 09/14/23 sennosides 8.6 mg-docusate sodium 2 tab-cap (2 x 8.6-50 mg) PO 11/13/23 50 mg capsule (Senna Plus) BEDTIME 60 days #120 caps diltiazem HCl 240 mg capsule,24 240 mg PO DAILY #90 caps 12/25/23 hr,extended release hydrochlorothiazide 12.5 mg tablet 12.5 mg PO BEDTIME #90 tabs 12/25/23 omeprazole 40 mg capsule,delayed 40 mg PO BID@0630,1630 60 days 12/25/23 release #120 caps nitrofurantoin 100 mg PO Q12H Urinary infection 5 02/20/24 monohydrate/macrocrystals 100 mg days #10 caps capsule Allergies Allergy/AdvReac Type Severity Reaction Status Date / Time bupropion [From Wellbutrin] Allergy Chest Pain Verified 03/05/24 12:41 ciprofloxacin Allergy Chest Pain Verified 03/05/24 12:41 prednisone Allergy Seizure Verified 03/05/24 12:41 Review of Systems 2 Review of Systems: Yes all other systems are reviewed and are negative PMFSH Past Medical History Medical History History of seizure disorder History of lung cancer Achalasia of esophagus Osteoporosis HTN (hypertension) KRISTEN on CPAP Lung cancer Asthma-COPD overlap syndrome GERD (gastroesophageal reflux disease) Emphysema/COPD Surgical History S/P partial lobectomy of lung H/O wrist surgery History of cholecystectomy Family History Family History Mother Small cell lung cancer Father Stomach cancer Brother Diabetes Throat cancer Social History Social History Household Members: Spouse, Family and None Housing: House Do you presently have visiting nurse or other home services: No Alcohol intake: current Alcohol intake frequency: does not drink Patient Tobacco Use Status: Former Tobacco user Years Smoked: 30 +/- Smoked in Last 30 Days: No e-Cigarette/Vaping Use: Never Used Use of substances other than those prescribed or required for medical reasons: No Advance Directives: Yes Advance Directives on File: Yes Advance Directives Date on File: 04/21/22 Do you have a plan to hurt others: No Plan service: No Current occupational status: retired Cognitive needs: No Hearing needs: No Vision needs: Yes Physical Exam 2 Vital Signs: Vital Signs: Last Vital Signs Temp 98.1 F 03/05/24 14:00 Pulse 78 03/05/24 16:16 Resp 17 03/05/24 14:00 BP 134/65 03/05/24 16:16 Pulse Ox 93 03/05/24 14:00 O2 Del Method Room Air 03/05/24 14:00 BMI result Body Mass Index 25.0 Appearance: Alert. Oriented X3. No acute distress. Head: normocephalic, atraumatic. Eyes: Pupils equal, round and reactive to light. ENT: Pharynx normal. No tonsillar swelling or exudate. Neck: Normal inspection. Neck supple. CVS: Normal heart rate and rhythm. Pulses normal. Respiratory: No respiratory distress. Breath sounds diminished at the bases bilaterally Abdomen: Soft and nontender. +BS x4 Skin: Skin warm and dry. Normal skin color. Normal skin turgor. No rashes. Extremities: No lower extremity edema. No joint swelling. Neuro/psych: Oriented X 3. No motor deficit. Mild sensory deficit involving the left side of the face only. CN II-XII intact. Normal speech and cognition. Steady gait NIH Stroke Scale Internal: Initial- Upon Arrival Level of Consciousness: Alert Level of Consciousness Questions: Answers both questions correctly Level of Consciousness Commands: Performs both tasks correctly Best Gaze: Normal Visual: No visual loss Facial Palsy: Normal Motor Arm (Right): No drift Motor Arm (Left): No drift Motor Leg (Right): No drift Motor Leg (Left): No drift Limb Ataxia: Absent Sensory: Mild to moderate sensory loss Best Language: No aphasia Dysarthia: Normal Extinction and Inattention: No abnormality Score: 1 Medical Decision Making Medical Decision Making MDM Narrative: 68-year-old female with history of HTN, asthma/COPD, osteoporosis, paroxysmal AFib on Xarelto, TIA, achalasia, lung cancer s/p resection 10/2020, seizures, KRISTEN on CPAP who presents to the ER from pulmonary rehab for evaluation of dizziness, lightheadedness, shortness of breath and nausea that started when she was exercising today with an arm bike. Symptoms returned to baseline with rest aside from some mild left-sided facial numbness, tingling/tightness. Her NIH is 1. On re-evaluation the ER this had resolved completely. Her orthostatic vital signs are negative. Troponin is negative. She states she had a TIA 10 years ago and was admitted here. Will plan for admission for further evaluation treatment. She is updated on plan of care and is in agreement Differential Diagnosis Differential Diagnoses: The differential diagnosis associated with the presentation includes TIA, CVA, dissection, anxiety, cardiac arrythmia, hypoxic event, trigeminal neuralgia Admission/Observation Consideration of admission/observation: Escalation of care including admission/observation considered Consult Healthcare Provider Management of the patient was discussed with: Hospitalist Lab Data MDM Lab Attestation statement: I reviewed the patient's lab results. No major metabolic derangement, negative troponin, no anemia 03/05/24 14:16 03/05/24 14:16 Labs: Lab Results 03/05/24 03/05/24 Range/Units 14:16 14:24 WBC 7.5 (4.8-10.8) X10*3/uL RBC 4.47 (4.20-5.50) X10*6/uL Hgb 13.4 (12.0-16.0) g/dl Hct 39.4 (37.0-47.0) % MCV 88.1 (80.0-98.0) fL MCH 30.0 (27.0-33.0) pg MCHC 34.0 (31.0-35.0) g/dl RDW 13.2 (11.0-16.0) % Plt Count 253 (160-400) X10*3/uL MPV 9.3 L (9.4-12.3) fL Immature Gran % (Auto) 0.4 (0.0-0.4) % Neut % (Auto) 78.7 H (45-73) % Lymph % (Auto) 12.7 L (20-40) % Garrett % (Auto) 5.2 (2-11) % Eos % (Auto) 2.3 (0-4) % Baso % (Auto) 0.7 (0-2) % Lymph # (Auto) 1.0 L (1.2-4.9) X10*3/uL Garrett # (Auto) 0.4 (0.1-1.2) X10*3/uL Eos # (Auto) 0.2 (0.0-0.4) X10*3/uL Baso # (Auto) 0.1 (0.0-0.2) X10*3/uL Abs Immat Gran (auto) 0.03 (0.00-0.03) X10*3/uL Absolute Neuts (auto) 5.9 (2.0-8.3) x10*3/uL Absolute Nucleated RBC 0.000 (0.0-0.012) X10*3/uL Nucleated RBC % (auto) 0.0 (0.0-0.2) /100WBC Sodium 141 (135-145) mmol/L Potassium 3.6 (3.3-5.1) mmol/L Chloride 99 (96-108) mmol/L Carbon Dioxide 33 H (22-29) mmol/L Anion Gap 13 (12-20) BUN 19 H (9-16) mg/dL Creatinine 0.78 (0.5-1.4) mg/dL Estim Creat Clear Calc 63.7 Estimated GFR > 60 Random Glucose 94 (60-115) mg/dL Calcium 9.4 (8.4-10.2) mg/dL Magnesium 2.1 (1.6-2.6) mg/dL Troponin I High Sens < 2.7 (<3.5-17.0) ng/L Urine Color Yellow Urine Appearance Cloudy Urine pH 5.5 (5.0-9.0) Ur Specific [place] 1.025 (1.005-1.025) Urine Protein 30 (1+) H (Neg-Trace) mg/dL Urine Glucose (UA) Negative (Negative) mg/dL Urine Ketones Negative (Negative) mg/dL Urine Blood Large (3+) H (Negative) Urine Nitrite Negative (Negative) Ur Leukocyte Esterase Small (1+) H (Negative) Urine RBC >20 H (0-2) /HPF Urine WBC 11-20 H (0-5) /HPF Ur Squamous Epith Cells 6-10 (0-2) /HPF Urine Bacteria None Seen (None Seen) Hyaline Casts 3-5 (0-2) /LPF Independent Interpretation I performed an independent interpretation of an: EKG and CT Scan Interpretation: CT head without acute bleed or edema EKG with normal sinus rhythm, ventricular rate 74 beats per minute, T-wave inversions in the V3 to V6. Radiology Impression Discussion of test interpretation with radiology: I have reviewed the radiologist's reading. Independent Historian Clinical information obtained from an independent historian. History obtained from or confirmed by: Spouse External Record Review External record reviewed: Office record, Outpatient record, Prior outpatient labs and Prior outpatient radiology Prescription Management I considered prescription management with: Pain Medication Chronic Conditions Patient?s care impacted by: Other (Asthma/COPD) Critical Care Time Critical Care Time Critical Care Time: No Discharge Plan Discharge Clinical Impression: Facial numbness, Pre-syncope Patient Disposition: Admitted As Inpatient Interventions: Admission Worksheet (ED) Last Done: 03/05/24 16:36 Print Language: Citizen Of [place]
[2024-03-05 14:20] LABS: MANUAL DIFF FLAG NO
[2024-03-05 14:21] LABS: Basophils Absolute Auto 0.1 X10*3/uL (0.0-0.2); Basophils Percent Auto 0.7 % (0-2); Eosinophils Absolute Auto 0.2 X10*3/uL (0.0-0.4); Eosinophils Percent Auto 2.3 % (0-4); Hematocrit 39.4 % (37.0-47.0); Hemoglobin 13.4 g/dl (12.0-16.0); Imm Gran Abs Auto 0.03 X10*3/uL (0.00-0.03); Imm Gran Pct Auto 0.4 % (0.0-0.4); Lymphocytes Percent Auto 12.7 % (20-40); Mean Corpuscular Volume 88.1 fL (80.0-98.0); Mean Platelet Volume 9.3 fL (9.4-12.3); Monocytes Absolute Auto 0.4 X10*3/uL (0.1-1.2); Monocytes Percent Auto 5.2 % (2-11); Neutrophils Absolute Auto 5.9 x10*3/uL (2.0-8.3); Neutrophils Percent Auto 78.7 % (45-73); Platelet Count 253 X10*3/uL (160-400); Red Blood Count 4.47 X10*6/uL (4.20-5.50); Red Cell Distribution Width 13.2 % (11.0-16.0); White Blood Count 7.5 X10*3/uL (4.8-10.8)
[2024-03-05 14:37] LABS: Appearance Urine Cloudy; Color Urine Yellow; Glucose Urine UA Negative (Negative); Leukocyte Esterase Urine Small (1+) (Negative); Nitrite Urine Negative (Negative); PH 5.5 (5.0-9.0); Specific Gravity - Urine 1.025 (1.005-1.025); UMIC TRIGGER UACC YES; Urine Blood Large (3+) (Negative); Urine Ketones Negative (Negative); Urine Protein 30 (1+) mg/dL (Neg-Trace)
[2024-03-05 14:40] LABS: Bacteria Urine None Seen (None Seen); RBC Urine >20 /HPF (0-2); UACC Culture Trigger YES
[2024-03-05 14:46] LABS: Anion Gap 13 (12-20); Blood Urea Nitrogen 19 mg/dL (9-16); Calcium 9.4 mg/dL (8.4-10.2); Carbon Dioxide 33 mmol/L (22-29); Chloride 99 mmol/L (96-108); Creatinine Clr Calc Pharmacy 63.7; Estimated Glomerular Filt Rate > 60; Glucose Random 94 mg/dL (60-115); Magnesium 2.1 mg/dL (1.6-2.6); Potassium 3.6 mmol/L (3.3-5.1); Sodium 141 mmol/L (135-145)
[2024-03-05 14:49] LABS: Troponin-I High Sensitivity < 2.7 ng/L (<3.5-17.0)
--- NOTE | 2024-03-05 16:44 | PM.IMHP ---
History of Present Illness Date of Service: 03/05/24 Chief Complaint: facial numbness 68F PMH chronic hypoxic respiratory failure due to COPD/moderate persistent asthma, hypertension, history of lung cancer, achalasia, KRISTEN on CPAP, paroxysmal atrial fibrillation, seizure disorder, presented with left facial numbness and expressive aphasia. Patient was at outpatient pulmonary rehab when she suddenly felt lightheaded nauseous sweaty, was having trouble finding words, was sent to the ED. In the ED patient noted left facial numbness. Denies any specific weakness. Symptoms lasted less than [address] head was negative. Review of Systems Review of Systems: Yes all other systems are reviewed and are negative FORMERLY [facility], [facility] Medical History History of seizure disorder History of lung cancer Achalasia of esophagus Osteoporosis HTN (hypertension) KRISTEN on CPAP Lung cancer Asthma-COPD overlap syndrome GERD (gastroesophageal reflux disease) Emphysema/COPD Family History Mother Small cell lung cancer Father Stomach cancer Brother Diabetes Throat cancer Surgical History S/P partial lobectomy of lung H/O wrist surgery History of cholecystectomy Social History Household Members: Spouse, Family and None Housing: House Do you presently have visiting nurse or other home services: No Alcohol intake: current Alcohol intake frequency: does not drink Patient Tobacco Use Status: Former Tobacco user Years Smoked: 30 +/- Smoked in Last 30 Days: No e-Cigarette/Vaping Use: Never Used Use of substances other than those prescribed or required for medical reasons: No Advance Directives: Yes Advance Directives on File: Yes Advance Directives Date on File: 04/21/22 Do you have a plan to hurt others: No Plan service: No Current occupational status: retired Cognitive needs: No Hearing needs: No Vision needs: Yes Meds Allergies Allergy/AdvReac Type Severity Reaction Status Date / Time bupropion [From Wellbutrin] Allergy Chest Pain Verified 03/05/24 12:41 ciprofloxacin Allergy Chest Pain Verified 03/05/24 12:41 prednisone Allergy Seizure Verified 03/05/24 12:41 Home Medications ?Medication ?Instructions ?Recorded ?Confirmed ?Last Taken ?Type albuterol sulfate 90 mcg/actuation 2 puff inhalation Q4H PRN 04/02/22 02/20/24 Unknown History aerosol inhaler Shortness Of Breath fluticasone propionate 50 1 spray intranasal BEDTIME 04/21/22 02/20/24 04/20/22 History mcg/actuation nasal spray,suspension Oxygen Home Use 02/21/23 02/20/24 Unknown History budesonide 160 mcg-glycopyr 9 inh inhalation 02/21/23 02/20/24 Unknown History mcg-formot 4.8 mcg/actuation HFA inhaler (Breztri Aerosphere) nebulizers 02/21/23 02/20/24 Unknown History magnesium 250 mg tablet 500 mg PO DAILY 03/20/23 02/20/24 Unknown History Physical Exam Vital Signs and Narrative: Vital Signs: Last Vital Signs Temp 98.1 F 03/05/24 14:00 Pulse 78 03/05/24 16:16 Resp 17 03/05/24 14:00 BP 134/65 03/05/24 16:16 Pulse Ox 93 03/05/24 14:00 O2 Del Method Room Air 03/05/24 14:00 BMI result Body Mass Index 25.0 General: AO X 3, no acute distress Resp: CTA bilateral, no accessory muscles used CVS: S1,S2,RRR GI: soft, non tender, non distended Neuro: motor grossly intact, alert Psych: appropriate affect, appropriate insight Results Labs 03/05/24 14:16 03/05/24 14:16 Labs: Laboratory Results - last 24 hr 03/05/24 03/05/24 14:16 14:24 MCV 88.1 MCH 30.0 MCHC 34.0 RDW 13.2 Plt Count 253 MPV 9.3 L Immature Gran % (Auto) 0.4 Neut % (Auto) 78.7 H Lymph % (Auto) 12.7 L [place] % (Auto) 5.2 Eos % (Auto) 2.3 Baso % (Auto) 0.7 Lymph # (Auto) 1.0 L [place] # (Auto) 0.4 Eos # (Auto) 0.2 Baso # (Auto) 0.1 Abs Immat Gran (auto) 0.03 Absolute Neuts (auto) 5.9 Absolute Nucleated RBC 0.000 Nucleated RBC % (auto) 0.0 Anion Gap 13 Estim Creat Clear Calc 63.7 Estimated GFR > 60 Random Glucose 94 Calcium 9.4 Magnesium 2.1 Troponin I High Sens < 2.7 Urine Color Yellow Urine Appearance Cloudy Urine pH 5.5 Ur Specific [place] 1.025 Urine Protein 30 (1+) H Urine Glucose (UA) Negative Urine Ketones Negative Urine Blood Large (3+) H Urine Nitrite Negative Ur Leukocyte Esterase Small (1+) H Urine RBC >20 H Urine WBC 11-20 H Ur Squamous Epith Cells 6-10 Urine Bacteria None Seen Hyaline Casts 3-5 Imaging Radiologist's Impressions: Impressions Chest X-Ray 03/05/24 14:25 IMPRESSION: No dense focal pneumonia. Hyperinflation. There is some reaction around the right hemidiaphragm which could be chronic. Previous study better demonstrated metallic suture around the right hilum. Electronically signed by: Jaun Linton MD 03/05/2024 04:29 PM EDT RP Head CT 03/05/24 15:02 IMPRESSION: No acute intracranial pathology. Nonspecific mild to moderate aerosolized secretions in the left sphenoid sinus. Electronically signed by: Shai To MD 03/05/2024 03:30 PM EDT RP Assessment and Plan (1) Pre-syncope: Status: Acute Plan 68F PMH chronic hypoxic respiratory failure due to COPD/moderate persistent asthma, hypertension, history of lung cancer, achalasia, KRISTEN on CPAP, paroxysmal atrial fibrillation, seizure disorder, presented with left facial numbness and expressive aphasia Left facial numbness and expressive aphasia Rule out TIA versus vasovagal Monitor on tele, MRI brain, neuro eval, check lipids Starting atorvastatin, continue Xarelto Patient's symptoms completely resolved, no need for PT or OT or speech Paroxysmal atrial fibrillation Continue diltiazem, flecainide, Xarelto COPD/moderate persistent asthma with chronic hypoxic respiratory failure Stable, continue inhalers Hypertension Continue diltiazem, hydrochlorothiazide Seizure disorder Continue lamotrigine DVT prophylaxis-on Xarelto Full code Quality Stroke Does the patient have a stroke diagnosis?: No VTE Prior VTE?: No VTE Risk Level:: Medical - moderate - high VTE Device Contraindication: Treatment Not Indicated VTE Drug Contraindication: N/A - Med Ordered
--- NOTE | 2024-03-05 17:45 | PC.NURSE ---
patient taken to MRI
--- NOTE | 2024-03-05 19:02 | PHA.MEDREC ---
Pharmacy Consult ? Medication Reconciliation Pharmacy has completed the medication reconciliation. Spoke to patient and confirmed medication list. Patient said she is using Breztri 1 puff daily, levalbuterol 1.25 mg once a day in the morning. Last dose of medications was yesterday 03/04/24.
--- NOTE | 2024-03-05 20:40 | MHC.EDTECH ---
at this time this tech checked on the pt due to her o2 monitor showing a pleth of 88-89% on RA. Upon entering the room the pt was sitting up in bed, I asked if she was feeling short of breath in whioch she stated that she was and that she, 'Usually go on 2.5 Liters of oxygen at this time at home . I placed the pt on a nasal cannula and started her on 1L of o2 and she is now currently stating at 95%. RN made aware.
[2024-03-05] MEDS: Rivaroxaban 20 MG TABLET PO (22:11)
[2024-03-05] MEDS: lamoTRIgine 100 MG TABLET PO (22:11)
[2024-03-05] MEDS: Flecainide Acetate 50 MG TABLET 100 MG PO (23:04)
[2024-03-05] MEDS: ondansetron HCL 4 MG/2 ML VIAL IVPUSH (23:04)
[2024-03-06 03:54] VITALS: BP 134/68; PULSE 70; RESP 18; TEMP 36.3; O2SAT 98
[2024-03-06 07:21] LABS: Hematocrit 37.8 % (37.0-47.0); Hemoglobin 12.8 g/dl (12.0-16.0); Mean Corpuscular HGB Conc 33.9 g/dl (31.0-35.0); Mean Corpuscular Volume 88.7 fL (80.0-98.0); Mean Platelet Volume 9.3 fL (9.4-12.3); Platelet Count 250 X10*3/uL (160-400); Red Blood Count 4.26 X10*6/uL (4.20-5.50); Red Cell Distribution Width 13.3 % (11.0-16.0); White Blood Count 5.8 X10*3/uL (4.8-10.8)
[2024-03-06 07:33] LABS: Anion Gap 13 (12-20); Blood Urea Nitrogen 17 mg/dL (9-16); Calcium 9.7 mg/dL (8.4-10.2); Carbon Dioxide 35 mmol/L (22-29); Chloride 99 mmol/L (96-108); Cholesterol 225 mg/dL (<200); Creatinine Clr Calc Pharmacy 57.1; Estimated Glomerular Filt Rate > 60; Glucose Fasting 99 mg/dL (60-99); HDL Cholesterol 50 mg/dL (>40); LDL Cholesterol Calculated 150 mg/dL (<100); Magnesium 2.1 mg/dL (1.6-2.6); Potassium 3.8 mmol/L (3.3-5.1); Sodium 143 mmol/L (135-145); Triglycerides 127 mg/dL (<150)
[2024-03-06 07:47] VITALS: BP 125/66; PULSE 63; RESP 17; TEMP 36.7; O2SAT 99
[2024-03-06] MEDS: Acetaminophen 325 MG TABLET 650 MG PO (08:38)
[2024-03-06] MEDS: lamoTRIgine 100 MG TABLET PO (08:39)
[2024-03-06] MEDS: Flecainide Acetate 50 MG TABLET 100 MG PO (08:39)
[2024-03-06] MEDS: 0.9 % Sodium Chloride Flush 3 ML SYRINGE IVFLUSH (09:10)
--- NOTE | 2024-03-06 09:13 | MHC.CM.PN ---
KE[place] 03/06/24, PT W/TIA, CM MET W/PT WHO REPORTS SHE LIVES W/, DTR, SU AND 3 GKIDS, PT IS INDEPENDENT W/CARE, HAS A NEBULIZER AND HOME O2 W/[place] AND NO HOME SERVICES, PT'S GOAL FOR DC IS HOME NO SERVICES. PCP/HCP ON FILE VERIFIED.
--- NOTE | 2024-03-06 09:26 | P.PNIM_ITS ---
Subjective Subjective Date of Service: 03/06/24 Interval History: back to normal Physical Exam 2 Vital Signs: Vital Signs: Last Vital Signs Temp 98.0 F 03/06/24 07:47 Pulse 63 03/06/24 07:47 Resp 17 03/06/24 07:47 BP 125/66 03/06/24 07:47 Pulse Ox 99 03/06/24 07:47 O2 Del Method Nasal Cannula 03/06/24 07:47 O2 Flow Rate 1 03/06/24 07:47 BMI result Body Mass Index 24.0 General: AO X 3, no acute distress Resp: CTA bilateral, no accessory muscles used CVS: S1,S2,RRR GI: soft, non tender, non distended Neuro: motor grossly intact, alert Psych: appropriate affect, appropriate insight Objective Data Active Medications Acetaminophen (Acetaminophen 325 Mg Tablet) 650 mg PO Q6H PRN PRN Reason: Pain, Mild (Pain Scale 1-3), fever or headache Last Admin: 03/06/24 08:38 Dose: 650 mg Documented By: IZZY Atorvastatin Calcium (Atorvastatin Calcium 40 Mg Tablet) 40 mg PO BEDTIME [facility] Last Admin: 03/05/24 22:12 Dose: Not Given Documented By: CHIVO Non-Admin Reason: pt reports doesn't take at home; refused Calcium Carbonate (Calcium Carbonate 750 Mg Tab.Chew) 750 mg PO Q4H PRN PRN Reason: Heartburn Flecainide Acetate (Flecainide Acetate 50 Mg Tablet) 100 mg PO BID [facility] Last Admin: 03/06/24 08:39 Dose: 100 mg Documented By: IZZY Lamotrigine (Lamotrigine 100 Mg Tablet) 100 mg PO BID [facility] Last Admin: 03/06/24 08:39 Dose: 100 mg Documented By: IZZY Magnesium Hydroxide (Milk Of Magnesia 30 Ml Oral.Susp) 30 ml PO DAILY PRN PRN Reason: Constipation Melatonin (Melatonin 3 Mg Tablet) 6 mg PO BEDTIME PRN PRN Reason: Insomnia Ondansetron HCl (Ondansetron Hcl 4 Mg/2 Ml Vial) 4 mg IVPUSH Q8H PRN PRN Reason: Nausea and Vomiting Last Admin: 03/05/24 23:04 Dose: 4 mg Documented By: LAFLAMGregory Rivaroxaban (Rivaroxaban 20 Mg Tablet) 20 mg PO DAILY@1700 [facility] Last Admin: 03/05/24 22:11 Dose: 20 mg Documented By: CHIVO Sodium Chloride (0.9 % Sodium Chloride Flush 3 Ml Syringe) 3 ml IVFLUSH QSHIFT [facility] Last Admin: 03/06/24 09:10 Dose: 3 ml Documented By: SISAC Labs 03/06/24 06:54 03/06/24 06:54 Labs: Laboratory Results - last 24 hr 03/05/24 03/05/24 03/06/24 14:16 14:24 06:54 MCV 88.1 88.7 MCH 30.0 30.0 MCHC 34.0 33.9 RDW 13.2 13.3 Plt Count 253 250 MPV 9.3 L 9.3 L Immature Gran % (Auto) 0.4 Neut % (Auto) 78.7 H Lymph % (Auto) 12.7 L [place] % (Auto) 5.2 Eos % (Auto) 2.3 Baso % (Auto) 0.7 Lymph # (Auto) 1.0 L [place] # (Auto) 0.4 Eos # (Auto) 0.2 Baso # (Auto) 0.1 Abs Immat Gran (auto) 0.03 Absolute Neuts (auto) 5.9 Absolute Nucleated RBC 0.000 0.000 Nucleated RBC % (auto) 0.0 0.0 Anion Gap 13 13 Estim Creat Clear Calc 63.7 57.1 Estimated GFR > 60 > 60 Random Glucose 94 Fasting Glucose 99 Calcium 9.4 9.7 Magnesium 2.1 2.1 Troponin I High Sens < 2.7 Triglycerides 127 Cholesterol 225 H LDL Cholesterol, Calc 150 H HDL Cholesterol 50 Urine Color Yellow Urine Appearance Cloudy Urine pH 5.5 Ur Specific [place] 1.025 Urine Protein 30 (1+) H Urine Glucose (UA) Negative Urine Ketones Negative Urine Blood Large (3+) H Urine Nitrite Negative Ur Leukocyte Esterase Small (1+) H Urine RBC >20 H Urine WBC 11-20 H Ur Squamous Epith Cells 6-10 Urine Bacteria None Seen Hyaline Casts 3-5 Assessment and Plan (1) Facial numbness: Status: Acute Plan 68F PMH chronic hypoxic respiratory failure due to COPD/moderate persistent asthma, hypertension, history of lung cancer, achalasia, KRISTEN on CPAP, paroxysmal atrial fibrillation, seizure disorder, presented with left facial numbness and expressive aphasia Left facial numbness and expressive aphasia resolved mri negative TIA vs vasavagal follow up neuro continue xarelto, lipitor Patient's symptoms completely resolved, no need for PT or OT or speech Paroxysmal atrial fibrillation Continue diltiazem, flecainide, Xarelto COPD/moderate persistent asthma with chronic hypoxic respiratory failure Stable, continue inhalers Hypertension Continue diltiazem, hydrochlorothiazide Seizure disorder Continue lamotrigine DVT prophylaxis-on Xarelto Full code reason for continued hospitalization:neuro eval Quality Stroke Does the patient have a stroke diagnosis?: No VTE Prior VTE?: No VTE Risk Level:: Medical - moderate - high VTE Device Contraindication: Treatment Not Indicated VTE Drug Contraindication: N/A - Med Ordered
--- NOTE | 2024-03-06 09:32 | PM.DS ---
DS: Providers Provider Date of Service: 03/06/24 Date of admission: 03/05/24 16:42 Date of discharge: 03/06/24 Primary care physician: Hayley Ni MD Consults: 03/05/24 16:42 Consult to Neurology Routine Consulting Provider: [facility] Reason for consultation: left facial numbness, expressive aphasia DS: Diagnosis Discharge Diagnosis (1) Facial numbness: Status: Acute DS: Summary Hospital Course Hospital Course: from initial hpi: 68F PMH chronic hypoxic respiratory failure due to COPD/moderate persistent asthma, hypertension, history of lung cancer, achalasia, KRISTEN on CPAP, paroxysmal atrial fibrillation, seizure disorder, presented with left facial numbness and expressive aphasia. Patient was at outpatient pulmonary rehab when she suddenly felt lightheaded nauseous sweaty, was having trouble finding words, was sent to the ED. In the ED patient noted left facial numbness. Denies any specific weakness. Symptoms lasted less than [address] head was negative. hospital course: Patient was monitored for left facial numbness expressive aphasia. MRI was negative for CVA. was seen by neuro who felt this was likely TIA, was started on statin. For paroxysmal atrial fibrillation Patient was continued on Xarelto, flecainide, diltiazem. For COPD with moderate persistent asthma with chronic hypoxic respiratory failure she remained stable. For hypertension was continued on diltiazem and hydrochlorothiazide. For seizure disorder was continued on lamotrigine. Patient's symptoms have completely resolved and will be discharged home. Time Attestation Discharge Coordination Time (in mins): 32 Quality: Safe Use of Opioids Does Pt have an Active Cancer Diagnosis on the Problem List?: No Quality: Stroke Does the patient have a stroke diagnosis?: Yes Reason for No Anti-thrombotic at DC: Drug treatment not indicated Reason for No Anticoagulant at DC: N/A - Med Ordered Reason Not Initiating IV-Tpa: Drug treatment not indicated Reason for No Anti-thrombotic by Day Two: Drug treatment not indicated Reason for No Statin at DC: N/A - Med Ordered Physical Exam Vital Signs: Vital Signs: Last Vital Signs Temp 98.0 F 03/06/24 07:47 Pulse 63 03/06/24 07:47 Resp 17 03/06/24 07:47 BP 125/66 03/06/24 07:47 Pulse Ox 99 03/06/24 07:47 O2 Del Method Nasal Cannula 03/06/24 07:47 O2 Flow Rate 1 03/06/24 07:47 BMI result Body Mass Index 24.0 General: AO X 3, no acute distress Resp: CTA bilateral, no accessory muscles used CVS: S1,S2,RRR GI: soft, non tender, non distended Neuro: motor grossly intact, alert Psych: appropriate affect, appropriate insight DS: Data Data Completed and Pending Labs on day of discharge: Laboratory Results - last 24 hr 03/05/24 03/05/24 03/06/24 14:16 14:24 06:54 WBC 7.5 5.8 RBC 4.47 4.26 Hgb 13.4 12.8 Hct 39.4 37.8 MCV 88.1 88.7 MCH 30.0 30.0 MCHC 34.0 33.9 RDW 13.2 13.3 Plt Count 253 250 MPV 9.3 L 9.3 L Immature Gran % (Auto) 0.4 Neut % (Auto) 78.7 H Lymph % (Auto) 12.7 L [place] % (Auto) 5.2 Eos % (Auto) 2.3 Baso % (Auto) 0.7 Lymph # (Auto) 1.0 L [place] # (Auto) 0.4 Eos # (Auto) 0.2 Baso # (Auto) 0.1 Abs Immat Gran (auto) 0.03 Absolute Neuts (auto) 5.9 Absolute Nucleated RBC 0.000 0.000 Nucleated RBC % (auto) 0.0 0.0 Sodium 141 143 Potassium 3.6 3.8 Chloride 99 99 Carbon Dioxide 33 H 35 H Anion Gap 13 13 BUN 19 H 17 H Creatinine 0.78 0.87 Estim Creat Clear Calc 63.7 57.1 Estimated GFR > 60 > 60 Random Glucose 94 Fasting Glucose 99 Calcium 9.4 9.7 Magnesium 2.1 2.1 Troponin I High Sens < 2.7 Triglycerides 127 Cholesterol 225 H LDL Cholesterol, Calc 150 H HDL Cholesterol 50 Urine Color Yellow Urine Appearance Cloudy Urine pH 5.5 Ur Specific [place] 1.025 Urine Protein 30 (1+) H Urine Glucose (UA) Negative Urine Ketones Negative Urine Blood Large (3+) H Urine Nitrite Negative Ur Leukocyte Esterase Small (1+) H Urine RBC >20 H Urine WBC 11-20 H Ur Squamous Epith Cells 6-10 Urine Bacteria None Seen Hyaline Casts 3-5 Discharge Plan Discharge Anticipated Discharge Date/Time: 03/06/24 09:30 Patient Disposition: Home, Self-Care Discharge Diagnosis: tia Referrals: Hayley Ni MD [Primary Care Provider] - 1 Week Discharge Medications: New atorvastatin 40 mg Tablet 40 mg PO BEDTIME Qty: 90 0RF Continued Xarelto 20 mg tablet 20 mg PO QPM Qty: 30 10RF flecainide 100 mg tablet 100 mg PO Q12H Qty: 180 3RF hydrochlorothiazide 12.5 mg tablet 12.5 mg PO BEDTIME Qty: 90 3RF omeprazole 40 mg capsule,delayed release(DR/EC) 40 mg PO BID@0630,1630 60 Days Qty: 120 3RF diltiazem HCl 240 mg capsule,extended release 24 hr 240 mg PO DAILY Qty: 90 3RF albuterol sulfate 90 mcg/actuation HFA aerosol inhaler 2 puff inhalation Q4H PRN (Reason: Shortness Of Breath) lamotrigine 100 mg Tablet 100 mg PO BID Qty: 60 0RF levalbuterol HCl 1.25 mg/3 mL solution for nebulization 1.25 mg inhalation DAILY magnesium 250 mg tablet 250 mg PO DAILY (DME) nebulizers Misc See Rx Instructions .Route Rx Instructions: As directed Breztri Aerosphere 160-9-4.8 mcg/actuation HFA aerosol inhaler 1 inh inhalation DAILY (DME) Oxygen Home Use Kit See Rx Instructions .Route Rx Instructions: As directed Discharge Orders: Discharge Order (Routine); Ordered 03/06/24 Ordered By: Rio Chu Diet: Advance to usual diet Activity on Discharge: As tolerated Stand Alone Forms: Patient Portal Discharge page, Work/School Release Print Language: Dutch Care Plan Goals: prevent further tia/cva Health Concerns: tia Plan of Treatment: continue pulm rehab, continue xarelto, starting lipitor Assessment: see above
--- NOTE | 2024-03-06 09:55 | P.CNNE_ITS ---
History of Present Illness Data of Consult Service Date: 03/06/24 Primary Care Provider: Hayley Ni MD HPI Reason for consult: ?TIA This is a 68yr female with h/o chronic hypoxic respiratory failure due to COPD/moderate persistent asthma, hypertension, history of lung cancer, achalasia, KRISTEN on CPAP, paroxysmal atrial fibrillation, seizure disorder, presented with left facial numbness and expressive aphasia that lasted <1 hour . Patient was at outpatient pulmonary rehab when she suddenly felt lightheaded nauseous sweaty, was having trouble finding words, was sent to the ED. She is on Xarelto 20mg . Denies any specific weakness. CT head was negative. MRI shows no acute infarct. Mild chronic white matter microvacsular changes PMFSH Past Medical History Medical History History of seizure disorder History of lung cancer Achalasia of esophagus Osteoporosis HTN (hypertension) KRISTEN on CPAP Lung cancer Asthma-COPD overlap syndrome GERD (gastroesophageal reflux disease) Emphysema/COPD Family History Family History Mother Small cell lung cancer Father Stomach cancer Brother Diabetes Throat cancer Surgical History Surgical History S/P partial lobectomy of lung H/O wrist surgery History of cholecystectomy Social History Social History Household Members: Spouse and Children Housing: House Do you presently have visiting nurse or other home services: No Alcohol intake: current Alcohol intake frequency: does not drink Patient Tobacco Use Status: Former Tobacco user Years Smoked: 30 +/- e-Cigarette/Vaping Use: Never Used Advance Directives Date on File: 04/21/22 service: No Current occupational status: retired Cognitive needs: No Hearing needs: No Vision needs: Yes Meds Allergies Allergy/AdvReac Type Severity Reaction Status Date / Time bupropion [From Wellbutrin] Allergy Chest Pain Verified 03/05/24 12:41 ciprofloxacin Allergy Chest Pain Verified 03/05/24 12:41 prednisone Allergy Seizure Verified 03/05/24 12:41 Active Medications: Current Medications Acetaminophen (Acetaminophen 325 Mg Tablet) 650 mg PO Q6H PRN PRN Reason: Pain, Mild (Pain Scale 1-3), fever or headache Last Admin: 03/06/24 08:38 Dose: 650 mg Albuterol Sulfate (Albuterol Sulfate 90 Mcg 8 Gm Inhaler) 2 puff INHALE Q4H PRN PRN Reason: Shortness Of Breath Atorvastatin Calcium (Atorvastatin Calcium 40 Mg Tablet) 40 mg PO BEDTIME [facility] Last Admin: 03/05/24 22:12 Dose: Not Given Calcium Carbonate (Calcium Carbonate 750 Mg Tab.Chew) 750 mg PO Q4H PRN PRN Reason: Heartburn Diltiazem HCl (Diltiazem Hcl Cd 240 Mg Cap.Er.Deg) 240 mg PO DAILY [facility]; Protocol Flecainide Acetate (Flecainide Acetate 50 Mg Tablet) 100 mg PO BID [facility] Last Admin: 03/06/24 08:39 Dose: 100 mg Hydrochlorothiazide (Hydrochlorothiazide 12.5 Mg Tablet) 12.5 mg PO BEDTIME [facility]; Protocol Lamotrigine (Lamotrigine 100 Mg Tablet) 100 mg PO BID [facility] Last Admin: 03/06/24 08:39 Dose: 100 mg Levalbuterol HCl (Levalbuterol Hcl 1.25 Mg/3 Ml Vial.Neb) 1.25 mg INHALE RDAILY [facility] Magnesium Hydroxide (Milk Of Magnesia 30 Ml Oral.Susp) 30 ml PO DAILY PRN PRN Reason: Constipation Melatonin (Melatonin 3 Mg Tablet) 6 mg PO BEDTIME PRN PRN Reason: Insomnia Non-Formulary Medication (Tcrjhdbgyf-Spnlbewr-Bpeiurweit [Breztri Aerosphere]) 1 inhalation INHALE DAILY [facility] Omeprazole (Omeprazole 40 Mg Capsule.Dr) 40 mg PO BID@0630,1630 [facility] Ondansetron HCl (Ondansetron Hcl 4 Mg/2 Ml Vial) 4 mg IVPUSH Q8H PRN PRN Reason: Nausea and Vomiting Last Admin: 03/05/24 23:04 Dose: 4 mg Rivaroxaban (Rivaroxaban 20 Mg Tablet) 20 mg PO DAILY@1700 [facility] Last Admin: 03/05/24 22:11 Dose: 20 mg Sodium Chloride (0.9 % Sodium Chloride Flush 3 Ml Syringe) 3 ml IVFLUSH QSHIFT [facility] Last Admin: 03/06/24 09:10 Dose: 3 ml Home Medications ?Medication ?Instructions ?Recorded ?Confirmed ?Last Taken ?Type albuterol sulfate 90 mcg/actuation 2 puff inhalation Q4H PRN 04/02/22 03/05/24 Unknown History aerosol inhaler Shortness Of Breath Oxygen Home Use 02/21/23 02/20/24 Unknown History budesonide 160 mcg-glycopyr 9 1 inh inhalation DAILY 02/21/23 03/05/24 03/04/24 History mcg-formot 4.8 mcg/actuation HFA inhaler (Breztri Aerosphere) nebulizers 02/21/23 02/20/24 Unknown History magnesium 250 mg tablet 250 mg PO DAILY 03/20/23 03/05/24 03/04/24 History levalbuterol HCl 1.25 mg/3 mL 1.25 mg inhalation DAILY 03/05/24 03/05/24 03/04/24 History solution for nebulization Physical Exam 2 Vital Signs: Vital Signs: Last Vital Signs Temp 98.0 F 03/06/24 07:47 Pulse 63 03/06/24 07:47 Resp 17 03/06/24 07:47 BP 125/66 03/06/24 07:47 Pulse Ox 99 03/06/24 07:47 O2 Del Method Nasal Cannula 03/06/24 07:47 O2 Flow Rate 1 03/06/24 07:47 BMI result Body Mass Index 24.0 Neuro: Other: Normal nonfocal neurological examination Results Labs 03/06/24 06:54 03/06/24 06:54 Labs: Short CBC 03/05/24 03/06/24 Range/Units 14:16 06:54 WBC 7.5 5.8 (4.8-10.8) X10*3/uL Hgb 13.4 12.8 (12.0-16.0) g/dl Hct 39.4 37.8 (37.0-47.0) % Plt Count 253 250 (160-400) X10*3/uL BMP 03/05/24 03/06/24 14:16 06:54 Sodium 141 143 Potassium 3.6 3.8 Chloride 99 99 Carbon Dioxide 33 H 35 H BUN 19 H 17 H Creatinine 0.78 0.87 Calcium 9.4 9.7 Urine 03/05/24 Range/Units 14:24 Urine Color Yellow Urine Appearance Cloudy Urine pH 5.5 (5.0-9.0) Ur Specific [place] 1.025 (1.005-1.025) Urine Protein 30 (1+) H (Neg-Trace) mg/dL Urine Glucose (UA) Negative (Negative) mg/dL Assessment and Plan (1) Facial numbness: Status: Acute Left facial numbness with transient speech disturbance with getting the wrong words out, lasting a few minutes consistent with a TIA. Workup was negative. No evidence of acute stroke Recommendation: Continue Xarelto, aspirin 81 mg a day Procedures Date of Service Date of Service: 03/06/24
[2024-03-06] MEDS: dilTIAZem HCL CD 240 MG CAP.ER.DEG PO (10:18)
[2024-03-06 11:36] VITALS: BP 149/70; PULSE 69; RESP 17; TEMP 36.6; O2SAT 94
== END 2024-03-06 13:56 | disposition home or self-care (01) ==
LOC: HO.ED 16:36 → HO.EDOVER 16:48 → HO.IMC 19:32
PROVIDERS: Admitting Provider Internal Medicine; Emergency Provider Emergency Medicine; PCP Internal Medicine; Visit Provider Internal Medicine
DX: G45.9 Transient cerebral ischemic attack, unspecified (principal); R47.01 Aphasia; R20.0 Anesthesia of skin; K22.0 Achalasia of cardia; I10 Essential (primary) hypertension; J44.89 Other specified chronic obstructive pulmonary disease; R55 Syncope and collapse; J45.40 Moderate persistent asthma, uncomplicated; J96.11 Chronic respiratory failure with hypoxia; K21.9 Gastro-esophageal reflux disease without esophagitis; I48.0 Paroxysmal atrial fibrillation; R61 Generalized hyperhidrosis; G40.909 Epilepsy, unspecified, not intractable, without status epilepticus; G47.33 Obstructive sleep apnea (adult) (pediatric); Z99.89 Dependence on other enabling machines and devices; Z85.118 Personal history of other malignant neoplasm of bronchus and lung; Z79.01 Long term (current) use of anticoagulants
CPT/HCPCS: 36415; 70450; 70551; 71046; 80048; 80061; 81001; 83735; 84484; 85025; 85027; 87086; 93005; 96374; 99222; 99285; J2405

== ENCOUNTER → 2024-03-05 16:42 | Outpatient (BNV) | payer MEDICARE, SELFPAY | PROVIDERS: Admitting Provider Internal Medicine; Emergency Provider Emergency Medicine; PCP Internal Medicine; Visit Provider Internal Medicine | DX: R20.0 Anesthesia of skin (principal) | CPT/HCPCS: 99223; 99239; 99499 ==

== ENCOUNTER → 2024-03-05 16:42 | Outpatient (BNV) | payer MEDICARE, SELFPAY | PROVIDERS: Admitting Provider Internal Medicine; Emergency Provider Emergency Medicine; PCP Internal Medicine; Visit Provider Psychiatry & Neurology Neurology | DX: R20.0 Anesthesia of skin (principal) | CPT/HCPCS: 99222 ==

== ENCOUNTER 2024-03-11 14:19 | Outpatient (REF) | payer MEDICARE, SELFPAY ==
--- NOTE | ~2024-03-11 | FL_ITS ---
EXAMINATION: MODIFIED BARIUM SWALLOW CLINICAL INFORMATION: Dysphagia COMPARISON: None TECHNIQUE: Modified barium swallow was performed under lateral fluoroscopy with patient in standing position. Barium mixed with solids and liquids of different consistencies was administered by the speech pathologist. Examination was recorded in the fluoroscopy suite. FINDINGS: There is trace laryngeal penetration with thin barium. No subglottic aspiration was observed. There is moderate cricopharyngeal achalasia present. FLUOROSCOPY TIME: 50 seconds Number of Spot Images: DOSE AREA PRODUCT: 179.4 uGy-m2 (microgray-meter squared) FL/FL Modified Barium Swallow IMPRESSION: 1. Trace laryngeal penetration with thin barium. No subglottic aspiration was observed. 2. Moderate cricopharyngeal achalasia. Refer to the speech therapy report for further clarification This procedure was performed by Anson Goodman PA-C, and supervised by Dr. White Electronically signed by: Red White MD 03/13/2024 02:38 PM EDT
--- NOTE | 2024-03-12 14:15 | MHC.SL.IMP ---
Date of Plan of Treatment: 03/11/24 Onset of Symptoms/Illness: 03/11/23 Date Treatment Started: 03/11/24 Admitting Diagnosis: K22.0 Achalasia of cardia Primary Speech & Language Diagnosis: R13.12 Oropharyngeal Phase Dysphagia Reason for Today's Visit: 04407 Modified Barium Swallow Study Pre-evaluation Dietary Consistencies: Regular Pre-evaluation Liquid Consistency: Thin Pre-evaluation Medication Administration: Whole with Liquid Medical History: Modified Barium Swallow Study Fluoroscopic Evaluation of Swallowing Function CPT Code 91164 Evaluation Year: 2023 Reason for Study: Difficulty swallowing Referring Physician: Nayely Lyn MD Evaluating Clinician: Lakeisha Lopes MA, CCC-BRIM GREASER OPERATOR Study Number: 1 Patient Name: Zaynab Mistry Status: Outpatient, Ambulatory Age: 68 Gender: Female Medical History Medical History History of seizure disorder History of lung cancer Achalasia of esophagus Osteoporosis HTN (hypertension) KRISTEN on CPAP Lung cancer Asthma-COPD overlap syndrome GERD (gastroesophageal reflux disease) Emphysema/COPD Surgical History S/P partial lobectomy of lung H/O wrist surgery History of cholecystectomy Current (pre-evaluation) Intake/Diet: Route: PO Diet Grade: Regular Liquid Consistencies: Thin Pre-Study Functional Oral Intake Scale (FOIS): 7- Total oral intake with no restrictions Pain: None reported at time of study SUBJECTIVE: Patient is a 68 year old female referred for a modified barium swallow study by Nayely Lyn MD of [place] [facility]. Patient?s history includes seizure disorder, history of lung cancer, achalasia of the esophagus, osteoporosis, hypertension, KRISTEN on CPAP, asthma-COPD overlap syndrome, GERD, and emphysema/COPD. Patient reports difficulty swallowing for the past year with complaints of globus sensation and nausea. Patient denies odynophagia, states she ?just feels like something is in the way.? When asked to locate this sensation she indicated the general area of the larynx. She also denies choking, but says that the sensation of something sticking in her throat makes her cough. Patient says some days it is worse than others, but it is rare that she would not feel it. She has history of GERD and takes omeprazole twice daily. She did have a Barium Swallow X-ray done on 02/09/23 which showed, ?Mild laryngeal penetration on thick barium identified, without extension to the true cords. No subglottic aspiration; Mild to moderate cricopharyngeal achalasia; Episodic gastroesophageal reflux to the level of the aortic arch; Small to moderate sized type I hiatus hernia; Disordered esophageal motility consistent with moderate presbyesophagus.? She also had a Soft Tissue Neck CT on 02/02/23 showing, ?Effacement of the left piriform sinus without a discrete mass.? Patient was recently hospitalized 03/05/24-03/06/24 with left facial numbness and expressive aphasia. Her symptoms resolved completely with negative head CT and brain MRI showing no acute infarct. Mild chronic white matter microvascular changes were noted. Her neuro workup was essentially negative with no evidence of acute stroke and she was discharged from the hospital with instructions to follow up with her primary care provider. Oral Motor Exam Facial Symmetry: Symmetrical Mouth Occlusion: Normal Oral-Facial Teeth Characteristics: Intact/Normal Oral-Facial Lip Pucker Description: Normal Oral-Facial Smile (Lips) Description: Normal Oral-Facial Puff Cheeks Description: Normal Tongue Size: Normal Tongue Excursion Description: Normal Tongue Range of Movement Description: Normal Tongue Speed of Movement Description: Normal Tongue Strength of Movement (against opposing pressure): Normal Tongue Movement Characteristics: Normal/Absent Food and Liquid Trials: Oral Impairment: Lip Closure: Did not test Oral Impairment: Tongue Control During Bolus Hold: 0=Cohesive bolus between tongue to palatal seal Oral Impairment: Bolus Preparation/Mastication: 0=Timely and efficient chewing and mashing Oral Impairment: Bolus Transport/Lingual Motion: 2=Slowed tongue motion Oral Impairment: Oral Residue: 1=Trace residue lining oral structures Oral Impairment:Initiation of Pharyngeal Swallow: 1=Bolus head in valleculae Pharyngeal Impairment: Soft Palate Elevation: 0=No bolus between soft palate (SP)/pharyngeal wall (PW) Pharyngeal Impairment: Laryngeal Elevation: 1=Partial thyroid cartilage/arytenoids to epiglottic petiole movement Pharyngeal Impairment: Anterior Hyoid Excursion: 1=Partial anterior movement Pharyngeal Impairment: Epiglottic Movement: 1=Partial inversion Pharyngeal Impairment: Laryngeal Vestibular Closure:: 0=Complete: no air/contrast in laryngeal vestibule Pharyngeal Impairment: Pharyngeal Stripping Wave: 0=Present: complete Pharyngeal Impairment: Pharyngeal Contraction: Did not test Pharyngeal Impairment: Pharyngoesophageal Segment Openin=Partial distention/partial duration: partial obstruction of flow Pharyngeal Impairment: Tongue Base (TB) Retraction: 1=Trace column of contrast/air between TB and posterior PW Pharyngeal Impairment: Pharyngeal Residue: 1=Trace residue within or on pharyngeal structures Pharyngeal Impairment: Esophageal Clearance Upright Position: Did not test Impressions and Recommendations Clinical Observations: OBJECTIVE: Time-out: performed at 14:45 Evaluation Start: 14:30; Stop: 14:35 Patient Positioning: Standing Viewing Planes: LATERAL ONLY Contrast: MBSImP? Standardized Protocol using commercially prepared, standardized Barium viscosities, including: Varibar? THIN LIQUID (40% w/v, <15 cps) , 1/2 Shortbread Cookie (1 x1 x.25 ) MBSImP ID: [id number] MBSImP Results: Lip closure for intraoral bolus containment could not be assessed due to logistical reasons not related to physiologic impairment. Tongue control during bolus hold maintained a cohesive bolus held between tongue to palate seal. Bolus preparation and mastication resulted in timely and efficient chewing and mashing. Bolus transport/lingual motion was with slowed tongue motion. Oral residue was a trace, lining oral structures. Initiation of the pharyngeal swallow occurred when the bolus head was in the valleculae. Soft palate elevation resulted in no bolus between the soft palate and the pharyngeal wall. Laryngeal elevation was decreased, with partial superior movement of the thyroid cartilage/partial approximation of the arytenoids to the epiglottic petiole. Anterior hyoid excursion demonstrated partial anterior movement. Epiglottic movement resulted in partial inversion. Laryngeal vestibular closure was complete, as indicated by no air or contrast within the laryngeal vestibule at the height of the swallow. Pharyngeal stripping wave was present and complete. Pharyngeal contraction could not be determined due to logistical reasons not related to physiologic impairment. Pharyngoesophageal segment opening demonstrated partial distension/partial duration, with partial obstruction of bolus flow. Tongue base retraction allowed a trace column of contrast or air between the retracted tongue base and the posterior pharyngeal wall. Pharyngeal residue was a trace within or on pharyngeal structures. Esophageal clearance in the upright position could not be assessed due to logistical reasons not related to physiologic impairment. Oral Impairment Score: 3 (absence of score, component 1) Pharyngeal Impairment Score: 4 (absence of score, component 13) Esophageal Impairment Score: --- (absence of score, component 17) Laryngeal Penetration and Aspiration: Neither penetration nor aspiration was observed in today's study with Cookie, Puree, Thin. ASSESSMENT: This exam was conducted by the radiologist and the speech pathologist. Patient was standing for lateral view and was able to self-feed without difficulty. She trialed thin (via individual and rapid straw sips), puree, and regular solid consistencies. Note good tongue control with no premature posterior spilling. Mastication was timely and efficient. Mildly slowed posterior lingual motion. Trace lingual residue cleared with a dry swallow. Pharyngeal swallow trigger initiated as the bolus head reached the valleculae. No evidence of nasopharyngeal reflux. Partial laryngeal elevation with partial epiglottic inversion. Complete laryngeal vestibular closure with no evidence of aspiration or penetration during this exam. Partial distention and partial obstruction of flow through the pharyngoesophageal segment (PES) opening with some retrograde flow in the pharynx. Observed cricopharyngeal bar. Trace residue on the tongue base and the posterior pharyngeal wall cleared with dry swallows. Liquid Intake Recommendation: Thin Liquid Intake Strategies: Small Sips Dietary Recommendations: Regular Medication Administration: Whole with Liquid Please contact the pharmacy regarding appropriate crushable or liquid drug formulations that are available whenever modified delivery is recommended. Compensatory Strategies Recommended: Sitting Upright (90 deg), Double Swallow, Small Bites and Sips, Alternate Liquids/Solids, Rate of Ingestion Change Supervision during eating and or drinking: None Needed Recommendation for Speech Therapy: NA:Typical Evaluation Text Comment: Intake Recommendations: Route: PO Diet Grade: Regular Liquid Consistencies: Thin Post-Study Functional Oral Intake Scale (FOIS): 7- Total oral intake with no restrictions Oral phase was overall unremarkable, with good lingual control, intact rotary chew, and adequate oral clearance. Noted cricopharyngeal achalasia and partial distention through the PES which may be contributing to patient?s symptoms of globus sensation. No evidence of aspiration or penetration during this exam. Patient was able to clear trace residue in the pharynx with dry swallows. Suggested Referrals: The patient might benefit from a referral to: Gastroenterology Indication for Referral: cricopharyngeal achalasia Therapy Recommendations: Speech therapy is not indicated at this time. Recommend patient continue on a regular texture diet with thin liquids. Discussed behavioral strategies with patient to promote clearance: Take small bites, chew food well, alternate with sips of liquid, dry swallows between bites, maintain upright position while eating/drinking and for at least 30 minutes afterwards. Patient verbalized understanding and denied having any questions at this time. Advised patient to continue monitoring her dysphagia. If there are any changes or worsening of symptoms, she may benefit from a repeat-assessment. Prognosis for Improvement: The prognosis for the patient to meet nutritional needs by mouth is good based on degree of impairment. Clinician - Supplemental, Miscellaneous Communication: It is important to note MBSS objective studies are snapshots in time and Patient function might vary with factors such as time of day or concomitant medical conditions. For this reason, the final treatment plan for this patient should rest with their medical care team. Additional recommendations should be considered with the totality of the Patient in mind. Thank for the opportunity to participate in the care of this patient. If you have any questions about the content of this report, please contact the [facility] at [facility]. Education: Education regarding findings from today's study and plans for therapy were provided to Patient only through Verbal Instruction. Understanding was expressed by the Patient only. Yacht Hand Clinician/Clinical Fellow: No Supervisory Statement: N/A Speech Language Pathologist: Lakeisha Lopes M.A., CCC-BRIM GREASER OPERATOR
== END 2024-03-11 14:20 | disposition home or self-care (01) ==
LOC: HO.XRAY 14:19
PROVIDERS: PCP Internal Medicine; Visit Provider Internal Medicine Gastroenterology
DX: N39.0 Urinary tract infection, site not specified (principal); K22.0 Achalasia of cardia
CPT/HCPCS: 74230; 81003; 92611; 99212

== ENCOUNTER → 2024-03-11 14:30 | Outpatient (BNV) | payer MEDICARE, SELFPAY | PROVIDERS: PCP Internal Medicine; Visit Provider Radiology Diagnostic Radiology | DX: R13.10 Dysphagia, unspecified (principal) | CPT/HCPCS: 74230 ==

== ENCOUNTER 2024-03-11 15:07 | Outpatient (AMB) | payer MEDICARE, SELFPAY ==
--- NOTE | 2024-03-11 15:42 | AM.OFFWIN_ITS ---
Intake Vital Signs 03/11/24 15:43 Height 5 ft 6 in BP 130/76 Blood Pressure Location Rt brachial Position Sitting Pulse 78 Pulse Source Pulse Oximeter Temp 98.1 F Temp Source Oral Pulse Oximetry (%) 97 Oxygen Delivery Method Room Air Intake Visit Reasons: EP UTI? Intake Note: Patient is today for sick visit complaint of possible uti. 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 She states this is this 3rd UTI she has had in the past 3 months. She states that she does feel better in between the UTIs. She tells me that she never had UTIs her entire life. She states she feels the increased urgency and burning with urination but denies fevers or low back pain. She was last treated for a UTI on 02/19 with macrobid. On 03/05, she was in the ED for another issue and a UA was positive for leukocyte esterase only, she did not receive any treatment for it. She also tells me she had an adenocarcinoma of the lung which she had removed in October 2020. [facility] Medical History History of seizure disorder History of lung cancer Achalasia of esophagus Osteoporosis HTN (hypertension) KRISTEN on CPAP Lung cancer Asthma-COPD overlap syndrome GERD (gastroesophageal reflux disease) Emphysema/COPD Surgical History S/P partial lobectomy of lung H/O wrist surgery History of cholecystectomy Family History Mother Small cell lung cancer Father Stomach cancer Brother Diabetes Throat cancer Social History Household Members: Spouse and Children Housing: House Do you presently have visiting nurse or other home services: No Alcohol intake: current Alcohol intake frequency: does not drink Patient Tobacco Use Status: Former Tobacco user Years Smoked: 30 +/- e-Cigarette/Vaping Use: Never Used Advance Directives Date on File: 04/21/22 service: No Current occupational status: retired Cognitive needs: No Hearing needs: No Vision needs: Yes Review of Systems Const All systems reviewed & are unremarkable except as noted in HPI and below Physical Exam Vital Signs: Last Vital Signs Temp 98.1 F 03/11/24 15:43 Pulse 78 03/11/24 15:43 BP 130/76 03/11/24 15:43 Pulse Ox 97 03/11/24 15:43 Oxygen Delivery Method Room Air 03/11/24 15:43 Const General: cooperative, healthy appearing, comfortable and no acute distress Orientation/consciousness: patient oriented x3 HEENT Head: Yes normal to inspection Ears: hearing grossly normal bilaterally General nose exam: Normal external nose present Face and sinus: Yes normal facial exam Neck Neck: Yes normal visual inspection, Yes trachea midline and Yes supple Resp Effort & Inspection: normal respiratory effort and able to speak in complete sentences Skin General skin exam: no rashes or lesions noted Neuro General: patient oriented x3 Psych Appearance: grossly normal Speech and movement: Normal speech and movement present Attitude: cooperative Thought process: Normal thought process present Insight: Good insight present (Psych) Judgement: Good judgement present (Psych) Results AMB Urinalysis, Automated UA Leukoctes 500 Tonya/uL Last Edit by En Gomes CMA on 03/11/24 15:5 3 UA Nitrite Positive Last Edit by En Gomes CMA on 03/11/24 15:53 UA Urobilinogen 8 mg/dL Last Edit by En Gomes CMA on 03/11/24 15:5 3 UA Protein 30 mg/dL Last Edit by En Gomes CMA on 03/11/24 15:53 UA pH 5.0 Last Edit by En Gomes CMA on 03/11/24 15:53 UA Blood 25 Juan Francisco/uL Last Edit by En Gomes CMA on 03/11/24 15:53 UA Specific [place] 1.020 Last Edit by En Gomes CMA on 03/11/24 1 5 :53 UA Ketone Positive Last Edit by En Gomes CMA on 03/11/24 15:53 UA Bilirubin 4 mg/dL Last Edit by En Gomes CMA on 03/11/24 15:53 UA Glucose 100 mg/dL Last Edit by En Gomes CMA on 03/11/24 15:53 Results Reviewed Results Reviewed: Laboratory Last Values Urine pH (Auto) 5.0 03/11/24 15:52 Specific [place] (Auto) 1.020 03/11/24 15:52 Urine Protein (Auto) 30 mg/dL 03/11/24 15:52 Glucose (UA)(Auto) 100 mg/dL 03/11/24 15:52 Urine Ketones (Auto) Positive 03/11/24 15:52 Urine Blood (Auto) 25 Juan Francisco/uL 03/11/24 15:52 Urine Nitrite (Auto) Positive 03/11/24 15:52 Urine Bilirubin (Auto) 4 mg/dL 03/11/24 15:52 Urine Urobilinogen (Auto) 8 mg/dL 03/11/24 15:52 Leukocyte Esterase (Auto) 500 Tonya/uL 03/11/24 15:52 Assessment & Plan Assessment & Plan (1) Recurrent UTI: Code(s): N39.0 - Urinary tract infection, site not specified Plan: Vital signs are stable and patient is well-appearing, she has had persistent hematuria in her UA's so we did discuss this with her adenocarcinoma of the lung in October of 2020, advised patient speak with her PCP he at her next appointment on March for further workup. I will also send her PCP a note in case she want to start ordering anything before that March 25 appointment. Sent antibiotic to pharmacy Plan see above Orders: Orders Urine Culture Today N39.0 - Urinary tract infection, site not specified AMB Urinalysis Automated Today Z13.9 - Encounter for screening, unspecified Medications: New cefuroxime axetil 500 mg PO Q12H 14 tabs 0RF Coding Level of Care Code Est Pt Level 4 (29389) Diagnoses Recurrent UTI N39.0
[2024-03-11 15:43] VITALS: BP 130/76; PULSE 78; TEMP 36.7; O2SAT 97
== END 2024-03-11 16:16 | disposition home or self-care (01) ==
PROVIDERS: PCP Internal Medicine; Visit Provider Physician Assistant
DX: N39.0 Urinary tract infection, site not specified (principal); Z13.9 Encounter for screening, unspecified

== ENCOUNTER 2024-03-11 16:10 | Outpatient (REF) | payer MEDICARE, SELFPAY | END 2024-03-11 16:11 | disposition home or self-care (01) | LOC: HO.LAB 16:10 | PROVIDERS: Visit Provider Physician Assistant | DX: Z13.89 Encounter for screening for other disorder (principal) ==

== ENCOUNTER 2024-03-18 09:59 | Outpatient (REF) | payer MEDICARE, SELFPAY ==
[2024-03-18 13:18] LABS: Urine Cytology See Pathology rpt
== END 2024-03-18 10:00 | disposition home or self-care (01) ==
LOC: HO.HMGCLDS 09:59
PROVIDERS: PCP Internal Medicine; Visit Provider Internal Medicine
DX: N39.0 Urinary tract infection, site not specified (principal); R31.29 Other microscopic hematuria; R39.0 Extravasation of urine
CPT/HCPCS: 87086; 88112

== ENCOUNTER 2024-03-20 10:19 | Outpatient (REF) | payer MEDICARE, SELFPAY ==
--- NOTE | ~2024-03-20 | US_ITS ---
EXAMINATION: US RETROPERITONEAL LIMITED (RENAL ONLY) CLINICAL INFORMATION: Urinary tract infection, site not specified. Microscopic hematuria. COMPARISON: None available. TECHNIQUE: Real-time imaging of the kidneys. FINDINGS: RIGHT KIDNEY: 12.2 x 4.4 x 5.7 cm (SAG x AP x TRV). The kidney is normal in size, contour, and echogenicity. Renal cortical thickness is normal. No calculi or focal parenchymal lesions. No hydronephrosis. LEFT KIDNEY: 12.0 x 4.6 x 4.8 cm (SAG x AP x TRV). The kidney is normal in size, contour, and echogenicity. Renal cortical thickness is normal. No calculi or focal parenchymal lesions. No hydronephrosis. US/US renal BI IMPRESSION: Normal-appearing kidneys Electronically signed by: Rickey Gonsalez MD 03/31/2024 09:26 AM EDT
== END 2024-03-20 10:20 | disposition home or self-care (01) ==
LOC: HO.HMGCX 10:19
PROVIDERS: PCP Internal Medicine; Visit Provider Internal Medicine
DX: N39.0 Urinary tract infection, site not specified (principal); R31.29 Other microscopic hematuria
CPT/HCPCS: 76775

== ENCOUNTER 2024-03-25 09:24 | Outpatient (AMB) | payer MEDICARE, SELFPAY ==
[2024-03-25 10:04] VITALS: BP 132/80; PULSE 69; O2SAT 94; BMI 23.7
--- NOTE | 2024-03-25 10:04 | A.OFFPC_ITS ---
Vital Signs 03/25/24 10:04 Height 5 ft 6 in Weight 147 lb BMI 23.7 BP 132/80 Blood Pressure Location Lt brachial Position Sitting Pulse 69 Pulse Source Pulse Oximeter Pulse Oximetry (%) 94 Oxygen Delivery Method Room Air Intake Visit Reasons: [facility] [place] Intake Note: Pt is here today for her HDF [facility] [place] Allergies bupropion [From Wellbutrin] Allergy (Verified 03/25/24 10:23) Chest Pain ciprofloxacin Allergy (Verified 03/25/24 10:23) Chest Pain prednisone Allergy (Verified 03/25/24 10:23) Seizure Medication List - Last Reconciled 03/25/24 by Hayley Ni MD albuterol sulfate 90 mcg/actuation 2 puffs inhalation Q4H PRN atorvastatin 40 mg PO BEDTIME ipmlfrastt-zrkukjue-bnzipddqaj 160-9-4.8 mcg/actuation (Breztri Aerosphere) 1 inh inhalation DAILY diltiazem HCl ER 240 mg PO DAILY flecainide 100 mg PO Q12H hydrochlorothiazide 12.5 mg PO BEDTIME lamotrigine 100 mg PO BID levalbuterol HCl 1.25 mg inhalation DAILY nebulizers As directed omeprazole 40 mg PO BID@0630,1630 60 days Oxygen Home Use As directed rivaroxaban (Xarelto) 20 mg PO QPM Tobacco use date assessed: 03/25/24 Fall risk assessment: 2 + Falls in past year Last assessed Fall Risk: 03/25/24 Dental Screening Dental Screen Date: 03/25/24 Did you have a dental visit in the last 12 months?: Yes Did you have a dental problem in the last 6 months where you did not have access to dental care?: Yes Was dental information given to patient?: Patient has dentist HPI [facility] [place] HPI Details 68 year old lady with PMH of chronic hyp oxic respiratory failure due to COPD/moderate persistent asthma, hypertension, history of lung cancer, achalasia, KRISTEN on CPAP, paroxysmal atrial fibrillation, seizure disorder, presented with left facial numbness and expressive aphasia, here today for a hospital discharhe follow-up . She was at outpatient pulmonary rehab when she suddenly felt lightheaded nauseous sweaty, was having trouble finding words, was sent to the ED. In the ED patient noted left facial numbness. Denies any specific weakness. Symptoms lasted less than [address] head was negative. MRI was negative for CVA. She was evaluated by neurology who felt this was likely TIA, was started on atorvastatin at 40 mg QD. She was continued on Xarelto, flecainide, diltiazem for her Paroxysmal atrial fibrillation , and on HCTZ and diltiazem for Hypertension . She also was continued on Lamotrigine for her seizure disorder, and on Bretztri, albuterol inhaler, and has Home O2 for control of her asthma-COPD overlap syndrome . Patient's symptoms have completely resolved upon her discharge , and has been feeling well, with no complaints at present time . [facility], [facility] Medical History (Updated 03/28/24 @ 03:28 by Hayley Ni MD) Dyslipidemia History of adenomatous polyp of colon Hx of TIA (transient ischemic attack) and stroke History of seizure disorder History of lung cancer Achalasia of esophagus Osteoporosis HTN (hypertension) KRISTEN on CPAP Asthma-COPD overlap syndrome GERD (gastroesophageal reflux disease) Surgical History S/P cardiac catheterization S/P partial lobectomy of lung H/O wrist surgery History of cholecystectomy Family History Mother Small cell lung cancer Father Stomach cancer Brother Diabetes Throat cancer Social History Household Members: Spouse and Children Housing: House Do you presently have visiting nurse or other home services: No Alcohol intake: current Alcohol intake frequency: does not drink Patient Tobacco Use Status: Former Tobacco user Years Smoked: 30 +/- e-Cigarette/Vaping Use: Never Used Advance Directives Date on File: 04/21/22 service: No Current occupational status: retired Cognitive needs: No Hearing needs: No Vision needs: Yes Questionnaire PHQ-9 Over the last 2 weeks, how often have you been bothered by any of the following problems? Depression Screening Interpretation: Negative Depression Screening Done: Yes Source: Developed by Drs. Noah Elizabeth, Samia Herzog, Salbador Donovan and colleagues, with an educational sonal from [employer]. Thrive Questionnaire Date Thrive assessed: 03/06/24 AUDIT C Alcohol Use Questionnaire (AUDIT-C) 2. How many drinks containing alcohol do you have on a typical day when you are drinking?: 1 or 2 3. How often do you have six or more drinks on one occasion?: Never Total Score: 0 KT-7 AMB Questionnaire KT-7 Date KT - 7 assessed: 10/26/23 Source: Developed by Drs. Noah Elizabeth, Samia Herzog, Salbador Donovan and colleagues, with an educational sonal from [employer]. Review of Systems Const Denies chills, Denies fatigue, Denies fever(s), Denies frequent falls and Denies weakness Eyes Denies change in vision ENT Reports no additional complaints Card Denies chest pain, Denies leg edema, Denies lightheadedness, Denies palpitations and Denies dyspnea on exertion Resp Denies cough and Denies dyspnea on exertion GI Reports no additional complaints and Denies hematochezia Reports no additional complaints Musc Denies abnormal gait, Denies muscle weakness, Denies numbness and Denies tingling Skin/Breast Denies lesions, Denies rash and Denies unusual bruising Neuro Denies abnormal gait, Denies frequent falls, Denies numbness, Denies tingling and Denies weakness Psych Reports no additional complaints Endo Denies fatigue and Denies palpitations Ga/Lymph Reports no additional complaints Aller/Immun Reports no additional complaints Physical exam (Primary Care) Vital Signs: Last Vital Signs Pulse 69 03/25/24 10:04 BP 132/80 03/25/24 10:04 Pulse Ox 94 03/25/24 10:04 Oxygen Delivery Method Room Air 03/25/24 10:04 BMI result Body Mass Index 23.7 Tobacco/Smoking Status: Tobacco use Status Tobacco use date assessed 03/25/24 03/25/24 10:07 Patient Tobacco Use Status Former Tobacco user 03/25/24 10:07 Tobacco use type 02/19/24 10:39 e-Cigarette/Vaping Use Never Used 03/25/24 10:07 Depression Screening Interpretation: Negative Thrive Assessment: Date of Thrive Assessment Date Thrive assessed 03/06/24 03/25/24 10:07 Const General: no acute distress and alert Orientation/consciousness: patient oriented x3 HENMT Ears: external ears normal General nose exam: Normal external nose present and No nasal discharge present Mouth: Normal oral and palatal mucosa present, oropharynx normal and moist mucous membranes Eyes General: appearance normal, both eyes and all related structures Neck Neck: Yes full ROM, Yes no lymphadenopathy and Yes supple Resp Effort & Inspection: normal respiratory effort and able to speak in complete sentences Auscultation: clear to auscultation bilaterally Cardio Rate: regular rate Rhythm: regular rhythm Heart sounds: S1 normal heart sound present and S2 normal heart sound present GI Palpation (GI): Soft to palpation, nontender and no masses Auscultation: normal bowel sounds Back/Spine/Pelvis Back: No back tenderness Skin General skin exam: no rashes or lesions noted Neuro General: patient oriented x3, gait normal, tone normal, moves all extremities, Normal light touch and pain sensation and no focal motor deficits Cranial nerves: Yes CN's II-XII intact bilaterally Cognition (Neuro): normal cognition Extrem General: Yes full ROM, Yes no joint enlargement, Yes no clubbing, cyanosis or edema and Yes no calf tenderness Psych Appearance: grossly normal and well kempt Mental Status: mental status grossly normal Speech and movement: Normal speech and movement present Affect: normal affect Results Reviewed Results Reviewed: Name: Zaynab Mistry Age/Sex: 68/F : 1955 Unit#: [id number] Attend Dr: Rio Chu MD Re03/05/24 Status: DIS PATRICIO Location: [facility] 4761 Disch: 03/06/24 SPEC : [id number] VIRY: 03/06/24 STATUS: COMP REQ : [id number] RECD: 03/06/[address]: Rio Chu MD COMP: 03/06/24 ENTERED: 03/06/[address]: Hayley Ni MD ORDERED: CBC No Diff Test Result Flag Reference WBC 5.8 4.8-10.8 X10*3/uL RBC 4.26 4.20-5.50 X10*6/uL HGB 12.8 12.0-16.0 g/dl HCT 37.8 37.0-47.0 % MCV 88.7 80.0-98.0 fL MCH 30.0 27.0-33.0 pg MCHC 33.9 31.0-35.0 g/dl RDW 13.3 11.0-16.0 % PLT 250 160-400 X10*3/uL MPV 9.3 L 9.4-12.3 fL NRBC Pct Auto 0.0 0.0-0.2 /100WBC NRBC Abs Auto 0.000 0.0-0.012 X10*3/uL Name: Zaynab Mistry Age/Sex: 68/F : 1955 Unit#: [id number] Attend Dr: Rio Chu MD Re03/05/24 Status: DIS PATRICIO Location: [facility] 471 Disch: 03/06/24 SPEC : [id number] VIRY: 03/06/24 STATUS: COMP REQ : [id number] RECD: 03/06/[address]: Rio Chu MD COMP: 03/06/24 ENTERED: 03/06/[address]: Hayley Ni MD ORDERED: Met Prof Fast, MG, Lipid Panel Test Result Flag Reference Sodium 143 135-145 mmol/L Potassium 3.8 3.3-5.1 mmol/L CL 99 96-108 mmol/L CO2 35 H 22-29 mmol/L Gap 13 12-20 BUN 17 H 9-16 mg/dL Creat 0.87 0.5-1.4 mg/dL Estimated CrCl 57.1 Provided height and weight: 167.64 cm, 67.5 kg. eGFR (calculated from the MDRD study equation) and eCrCl (calculated from the Cockcroft-Gault equation) are based on different parameters and may not yield comparable results. If eCrCl result is absurd, please check patient's height/weight. EGFR > 60 NOTE: For -[place] individuals, multiply the result by 1.210. Chronic Kidney Disease: Estimated GFR < 60 mL/min/1.73m2 Severe Kidney Disease: Estimated GFR < 15 mL/min/1.73m2 FBS 99 60-99 mg/dL CA 9.7 8.4-10.2 mg/dL Magnesium 2.1 1.6-2.6 mg/dL Triglyceride 127 <150 mg/dL Desirable Triglyceride: less than 150 mg/dL Borderline High Triglyceride 150-199 mg/dL High Triglyceride: 200-499 mg/dL Very High Triglyceride: greater than or equal to 5OO mg/dL Cholesterol 225 H <200 mg/dL Desirable Cholesterol: less than 200 mg/dL Borderline High Cholesterol: 200-239 mg/dL High Cholesterol: greater than 239 mg/dL LDL Calculated 150 H <100 mg/dL Desirable LDL: less than 100 mg/dL Near Optimal/Above Optimal LDL: 110-129 mg/dL Borderline High LDL: 130-159 mg/dL High LDL: 160-189 mg/dL Very High LDL: greater than or equal to 190 mg/dL HDL 50 >40 mg/dL Desirable HDL: greater than 40 mg/dL Note: This HDL assay may give artificially low results in patients with liver disease. Coding Level of Care Code Est Pt Level 4 (95879) Complex EM visit Add On G2211 Diagnoses Hx of TIA (transient ischemic attack) and stroke Z86.73 Primary hypertension I10 Hypertension type: primary hypertension History of seizure disorder Z86.69 Achalasia of esophagus K22.0 Asthma-COPD overlap syndrome J44.9 PAF (paroxysmal atrial fibrillation) I48.0 Dyslipidemia E78.5 Age-related osteoporosis without current pathological fracture M81.0 Osteoporosis type: age-related Presence of current pathological fracture: without current pathological fracture Assessment & Plan Assessment & Plan (1) Hx of TIA (transient ischemic attack) and stroke: Code(s): Z86.73 - Personal history of transient ischemic attack (TIA), and cerebral infarction without residual deficits Category: Medical Plan: Continue on Xarelto, reinforced importance of getting blood pressure, cholesterol levels, stress levels, glucose levels controlled. lifestyle changes needs to be implemented to include eating a healthier diet, exercising regularly (2) HTN (hypertension): Code(s): I10 - Essential (primary) hypertension Category: Medical Qualifiers: Hypertension type: primary hypertension Qualified Code(s): I10 - Essential (primary) hypertension Plan: Goal blood pressure less than 130/80, will continue on diltiazem, hydrochlorothiazide and reinforced importance of following a low-salt diet, getting regular exercise,and managing stress levels (3) History of seizure disorder: Code(s): Z86.69 - Personal history of other diseases of the nervous system and sense organs Category: Medical Plan: Currently seizure-free, on lamotrigine (4) Achalasia of esophagus: Comment: Established Dr. Hargrove- Code(s): K22.0 - Achalasia of cardia Category: Medical Plan: Followed by GI clinic, currently on omeprazole 40 mg 1 capsule twice a day (5) Asthma-COPD overlap syndrome: Code(s): J44.9 - Chronic obstructive pulmonary disease, unspecified Category: Medical Plan: On Breztri aerosphere and albuterol inhaler as well as levalbuterol via nebulizer. Recommended to get updated COVID booster and yearly flu shot, but patient declined, she is up-to-date however on her pneumococcal vaccination (6) PAF (paroxysmal atrial fibrillation): Code(s): I48.0 - Paroxysmal atrial fibrillation Category: Medical Plan: Currently on Xarelto, diltiazem and flecainide, followed by cardiology (7) Dyslipidemia: Code(s): E78.5 - Hyperlipidemia, unspecified Category: Medical Plan: Latest fasting lipids showed elevated total cholesterol and LDL cholesterol refilled prescription for atorvastatin 40 mg daily, will repeat another fasting lipid panel , liver enzymes in 05/2024 (8) Osteoporosis: Comment: Left hip Code(s): M81.0 - Age-related osteoporosis without current pathological fracture Category: Medical Qualifiers: Osteoporosis type: age-related Presence of current pathological fracture: without current pathological fracture Qualified Code(s): M81.0 - Age- related osteoporosis without current pathological fracture Plan: Baseline bone density scan done 05/01/2023 showed presence of osteoporosis in left femoral neck and osteopenia in left femur and AP spine. A referral was ordered for her to see Dr. Emily ambriz for further evaluation management last 10/2023, no consult report received yet, will follow-up. Advised to start taking ziom-wio-hodkrvx vitamin-D 3 supplements at least 2000 units daily, regular weight-bearing exercise take adequate calcium from dietary sources. Orders: Orders Lipid Panel 05/12/24 E55.9 - Vitamin D deficiency, unspecified, I10 - Essential (primary) hypertension, M81.0 - Age-related osteoporosis without current pathological fracture, Z86.73 - Personal history of transient ischemic attack (TIA), and cerebral infarction without residual deficits Alanine Aminotransferase 05/12/24 E55.9 - Vitamin D deficiency, unspecified, I10 - Essential (primary) hypertension, M81.0 - Age-related osteoporosis without current pathological fracture, Z86.73 - Personal history of transient ischemic attack (TIA), and cerebral infarction without residual deficits Vitamin D 25-OH Total 05/12/24 E55.9 - Vitamin D deficiency, unspecified, M81.0 - Age-related osteoporosis without current pathological fracture Aspartate Amino Transferase 05/12/24 E55.9 - Vitamin D deficiency, unspecified, I10 - Essential (primary) hypertension, M81.0 - Age-related osteoporosis without current pathological fracture, Z86.73 - Personal history of transient ischemic attack (TIA), and cerebral infarction without residual deficits Medications: Refilled atorvastatin 40 mg PO BEDTIME 90 tabs 0RF
== END 2024-03-25 10:46 | disposition home or self-care (01) ==
PROVIDERS: PCP Internal Medicine; Visit Provider Internal Medicine
DX: J44.9 Chronic obstructive pulmonary disease, unspecified (principal); I48.0 Paroxysmal atrial fibrillation; Z86.73 Personal history of transient ischemic attack (TIA), and cerebral infarction without residual deficits; I10 Essential (primary) hypertension; Z86.69 Personal history of other diseases of the nervous system and sense organs; K22.0 Achalasia of cardia; E78.5 Hyperlipidemia, unspecified; M81.0 Age-related osteoporosis without current pathological fracture

== ENCOUNTER → 2024-03-25 09:24 | Outpatient (BNVA) | payer MEDICARE, SELFPAY | PROVIDERS: PCP Internal Medicine; Visit Provider Internal Medicine | DX: I10 Essential (primary) hypertension (principal); K22.0 Achalasia of cardia; J44.9 Chronic obstructive pulmonary disease, unspecified; I48.0 Paroxysmal atrial fibrillation; E78.5 Hyperlipidemia, unspecified; M81.0 Age-related osteoporosis without current pathological fracture; Z86.69 Personal history of other diseases of the nervous system and sense organs; Z86.73 Personal history of transient ischemic attack (TIA), and cerebral infarction without residual deficits | CPT/HCPCS: 99212 ==

== ENCOUNTER 2024-03-28 12:52 | Outpatient (AMB) | payer MEDICARE, SELFPAY ==
--- NOTE | 2024-03-28 12:59 | A.OFFVIS_ITS ---
Vital Signs 03/28/24 13:16 Pulse 74 Intake Visit Reasons: BS results Intake Note: Patient follow up for Cricopharyngeal achalasia and Barium swallow results. Patient cc: Nauseas, abdominal discomfort, between diarrhea and constipation. Denies any other G issues. 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 Accompanied by: Self / Same As Patient Allergies bupropion [From Wellbutrin] Allergy (Verified 03/28/24 13:15) Chest Pain ciprofloxacin Allergy (Verified 03/28/24 13:15) Chest Pain prednisone Allergy (Verified 03/28/24 13:15) Seizure Medication List - Last Reconciled 03/28/24 by Nayely Lyn MD albuterol sulfate 90 mcg/actuation 2 puffs inhalation Q4H PRN atorvastatin 40 mg PO BEDTIME [id number] 160-9-4.8 mcg/actuation (Breztri Aerosphere) 1 inh inhalation DAILY diltiazem HCl ER 240 mg PO DAILY flecainide 100 mg PO Q12H hydrochlorothiazide 12.5 mg PO BEDTIME lamotrigine 100 mg PO BID levalbuterol HCl 1.25 mg inhalation DAILY nebulizers As directed omeprazole 40 mg PO BID@0630,1630 60 days Oxygen Home Use As directed rivaroxaban (Xarelto) 20 mg PO QPM HPI HPI BS results: Details: GI clinic visit for this 68 YF for FU of dysphagia and abnormal barium swallow TODAY'S VISIT: Patient cc: Nauseas, abdominal discomfort, between diarrhea and constipation. MBS results and speech pathologist recommendations were reviewed with the patient and her Denies any change in dysphagia Notes post nasal drip which aggravates her symptoms at night, Having trouble with the lower stomach. Nausea all day long - not keeping her from eating Constant lower abdominal pressure Denies improvement in abd pressure after she has a BM Has a BM daily and then no BM x 2 days. Takes Senna 1 pill every night and has a BM the following day. PAST VISITS New consult for a 2nd opinion for dysphagia due to cricopharyngeal achalasia and esophageal motility disorder Patient cc: N/V on and off, abdominal pain/bloating come and go, acid reflex with some burning sensation, swallowing problem and between diarrhea and constipation, dizziness, tiredness and some fatigue. Intermittent dysphagia to solids and liquids for the past year Seen by Dr Maldonado - had a barium study and advised to fu with Dr Hargrove. Hx of heartburn x 30 years and takes Omeprazole 40 mg twice daily Patient denies recent change in appetite or weight. Notes constipation alternating with diarrhea. Has 3-4 episodes of uncontrolled diarrhea every 6 weeks and unable to leave the house - lasts for 3-4 days. Treated with Pelvic floor exercises without improvement in symptoms. Can be constipated with no BM for 3-5 days. Tried taking different medications without relief. Drinks a lot of water and gatorade Patient has asthma, emphysema and is status post removal of for Stage 1 lung cancer in 2020 She is on Home O2 at night and prn during the day On Xarelto for AF Pt denies a hx of sleep apnea - had a sleep study Denies problems with anesthesia in the past. Patient denies known family history of colon polyps, colon cancer. Family hx is positive for esophageal and stomach cancer (Dad, two paternal uncles, Pat GM). Mat Gm had thyroid cancer. Pt worked in a [employer] and has 2 children LABS IN Framed Data : 10/26/23 Reviewed IMAGING STUDIES: 03/11/24 MODIFIED BARIUM SWALLOW SHOWED: 1. Trace laryngeal penetration with thin barium. No subglottic aspiration was observed. 2. Moderate cricopharyngeal achalasia. SPEECH THERAPY ASSESSMENT: This exam was conducted by the radiologist and the speech pathologist. Patient was standing for lateral view and was able to self-feed without difficulty. She trialed thin (via individual and rapid straw sips), puree, and regular solid consistencies. Note good tongue control with no premature posterior spilling. Mastication was timely and efficient. Mildly slowed posterior lingual motion. Trace lingual residue cleared with a dry swallow. Pharyngeal swallow trigger initiated as the bolus head reached the valleculae. No evidence of nasopharyngeal reflux. Partial laryngeal elevation with partial epiglottic inversion. Complete laryngeal vestibular closure with no evidence of aspiration or penetration during this exam. Partial distention and partial obstruction of flow through the pharyngoesophageal segment (PES) opening with some retrograde flow in the pharynx. Observed cricopharyngeal bar. Trace residue on the tongue base and the posterior pharyngeal wall cleared with dry swallows. Liquid Intake Recommendation: Thin Liquid Intake Strategies: Small Sips Dietary Recommendations: Regular Medication Administration: Whole with Liquid Please contact the pharmacy regarding appropriate crushable or liquid drug formulations that are available whenever modified delivery is recommended. Compensatory Strategies Recommended: Sitting Upright (90 deg), Double Swallow, Small Bites and Sips, Alternate Liquids/Solids, Rate of Ingestion Change Supervision during eating and or drinking: None Needed Recommendation for Speech Therapy: NA:Typical EvaluationText Comment: Intake Recommendations: Route: PO Diet Grade: Regular Liquid Consistencies: Thin Post-Study Functional Oral Intake Scale (FOIS): 7- Total oral intake with no restrictions Oral phase was overall unremarkable, with good lingual control, intact rotary chew, and adequate oral clearance. Noted cricopharyngeal achalasia and partial distention through the PES which may be contributing to patient?s symptoms of globus sensation. No evidence of aspiration or penetration during this exam. Patient was able to clear trace residue in the pharynx with dry swallows. Suggested Referrals: The patient might benefit from a referral to: Gastroenterology Indication for Referral: cricopharyngeal achalasia Therapy Recommendations: Speech therapy is not indicated at this time. Recommend patient continue on a regular texture diet with thin liquids. Discussed behavioral strategies with patient to promote clearance: Take small bites, chew food well, alternate with sips of liquid, dry swallows between bites, maintain upright position while eating/drinking and for at least 30 minutes afterwards. Patient verbalized understanding and denied having any questions at this time. Advised patient to continue monitoring her dysphagia. If there are any changes or worsening of symptoms, she may benefit from a repeat-assessment. Prognosis for Improvement: The prognosis for the patient to meet nutritional n eeds by mouth is good based on degree of impairment. Clinician - Supplemental, Miscellaneous Communication: It is important to note MBSS objective studies are snapshots in time and Patient function might vary with factors such as time of day or concomitant medical conditions. For this reason, the final treatment plan for this patient should rest with their medical care team. Additional recommendations should be considered with the totality of the Patient in mind. 01/2023 BARIUM SWALLOW SHOWED: 1. Mild laryngeal penetration on thick barium identified, without extension to the true cords. No subglottic aspiration. 2. Mild to moderate cricopharyngeal achalasia. 3. Episodic gastroesophageal reflux to the level of the aortic arch. 4. Small to moderate sized type I hiatus hernia. 5. Somewhat patulous appearing esophagus without mucosal abnormality, stricture, or mass. Disordered esophageal motility consistent with moderate presbyesophagus. 6. Perceived gastric fold thickening, possibly artifactual due to inability of the patient to retain the effervescent granule gas, or possibly representing gastritis. No ulceration or mass evident. 7. Normal duodenal bulb and sweep. ENDOSCOPIC STUDIES: 2014 Colonoscopy was performed by Dr. Hargrove and a small tubular adenoma was removed from the transverse colon Had a stool Cologuard within the past 3 year - negative per patient. PAST GI HISTORY BY REVIEW OF MEDICAL RECORDS: Note by ALEXYS Page: 68-year-old female multiple comorbid illness- O2- dependent-SOB referred with achalasia Established with Dr. Hargrove-for many years-seen a couple months ago- referring to Barium- no further recommendations don't worry about it Spoke further with Dr. Hargrove- he declined procedure due to anesthesia risk- She is hypoxic-shewas told unless life threatening no procedures or anesthesia- Barium swallow 01/2023- Follows with ENT- Saw pcp-Dr. Ni-referred for 2nd opinion She has difficulty swallowing- 2020-lung CA-surgical- Dr. Farooq Espinosa-3 yr scan-no recurrence She was seen previously @ [facility]- pulmonary-Sz- DX-disorder- 2019- Appetite is good- no wt loss Colonoscopy- Dr. Hargrove Xarelto-AFIB Sz. disorder [facility] Medical History (Updated 03/29/24 @ 16:59 by Nayely yLn MD) Dyslipidemia History of adenomatous polyp of colon Hx of TIA (transient ischemic attack) and stroke History of seizure disorder History of lung cancer Achalasia of esophagus Osteoporosis HTN (hypertension) KRISTEN on CPAP Asthma-COPD overlap syndrome GERD (gastroesophageal reflux disease) Surgical History S/P cardiac catheterization S/P partial lobectomy of lung H/O wrist surgery History of cholecystectomy Family History Mother Small cell lung cancer Father Stomach cancer Brother Diabetes Throat cancer Social History Household Members: Spouse and Children Housing: House Do you presently have visiting nurse or other home services: No Alcohol intake: current Alcohol intake frequency: does not drink Patient Tobacco Use Status: Former Tobacco user Years Smoked: 30 +/- e-Cigarette/Vaping Use: Never Used Advance Directives Date on File: 04/21/22 service: No Current occupational status: retired Cognitive needs: No Hearing needs: No Vision needs: Yes Review of Systems Const All systems reviewed & are unremarkable except as noted in HPI and below Physical Exam Vital Signs: Last Vital Signs Pulse 74 03/28/24 13:16 Const General: no acute distress Nutritional Appearance: average body habitus Orientation/consciousness: patient oriented x3 Limitations: no limitations HEENT Head: Yes normal to inspection Ears: hearing grossly normal bilaterally Eyes Sclerae: sclerae normal Pupils: Equal, round and reactive pupils present Neck Neck: Yes normal visual inspection Chest Chest palpation & inspection: normal inspection of the chest Resp Effort & Inspection: normal respiratory effort Auscultation: clear to auscultation bilaterally Cardio Palpation: normal PMI Rate: regular rate Rhythm: regular rhythm Heart sounds: S1 normal heart sound present, S2 normal heart sound present and no murmurs GI Palpation (GI): Soft to palpation, Tenderness to palpation present (GI) (mild diffuse abdominal tenderness) and No hepatosplenomegaly present Auscultation: normal bowel sounds Rectal Exam - Female: deferred Skin General skin exam: no rashes or lesions noted Neuro General: patient oriented x3, gait normal and moves all extremities Cranial nerves: Yes Equal, round and reactive pupils present Psych Appearance: grossly normal Mental Status: mental status grossly normal Assessment & Plan Assessment & Plan (1) Vitamin D deficiency: Code(s): E55.9 - Vitamin D deficiency, unspecified Category: Medical (2) Achalasia of esophagus: Comment: Established Dr. Hargrove- Code(s): K22.0 - Achalasia of cardia Category: Medical (3) Hiatal hernia: Code(s): K44.9 - Diaphragmatic hernia without obstruction or gangrene Category: Medical (4) Cricopharyngeal achalasia: Code(s): K22.0 - Achalasia of cardia Category: Medical (5) Diffuse abdominal pain: Code(s): R10.84 - Generalized abdominal pain Category: Medical (6) History of colon polyps: Comment: 2014 Colonoscopy was performed by Dr. Hargrove and a small tubular adenoma was removed from the transverse colon Had a stool Cologuard within the past 3 year - negative per patient. Pt considered high risk for anesthesia due to asthma-COPD overlap syndrome Code(s): Z86.0100 - Personal history of colon polyps, unspecified Category: Medical Plan 68 YF with intermittent dysphagia to solids and liquids for the past year Dysphagia is likely a combination of esophageal motility disorder and cricopharyngeal achalasia as seen on barium swallow Pt complains of constipation with no BM for 3-5 days and episodes of uncontrolled diarrhea every 6 weeks - she likely has chronic constipation followed by paradoxical diarrhea. Barium swallow results reviewed with the patient. 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 Schedule a modified barium swallow with speech pathologist. 2. To take a soft diet, chew her food well and take it with sips of fluids 3. Take Senna 1 tablet or capsule at bedtime for a week and increase to 2 tab/capsules if needed 03/28/24 Having trouble with the lower stomach. Nausea all day long - not keeping her from eating Constant lower abdominal pressure Denies improvement in abd pressure after she has a BM Has a BM daily and then no BM x 2 days. Takes Senna 1 pill every night and has a BM the following day. ADDENDUM: KUB SHOWED: Nonobstructive bowel gas pattern. Moderate stool burden. Possible trace right pleural effusion. Pt called and KUB results reviewed. Advised to increase Senna to two tab at bedtime Take Miralax once a day every morning. Advised to call if no improvement in symptoms in 1-2 weeks. FU in 4 - 6 weeks Orders: Orders XR KUB 03/28/24 R10.84 - Generalized abdominal pain Medications: New polyethylene glycol 3350 (Miralax) 17 grams PO DAILY 30 days 510 grams 1RF K59.09 - Other constipation Coding Level of Care Code Est Pt Level 4 (71036) Diagnoses Vitamin D deficiency E55.9 Achalasia of esophagus K22.0 Hiatal hernia K44.9 Cricopharyngeal achalasia K22.0 Diffuse abdominal pain R10.84 History of colon polyps Z86.0100 Time Spent (min) 23
[2024-03-28 13:16] VITALS: PULSE 74
== END 2024-03-28 14:03 | disposition home or self-care (01) ==
PROVIDERS: PCP Internal Medicine; Visit Provider Internal Medicine Gastroenterology
DX: E55.9 Vitamin D deficiency, unspecified (principal); K22.0 Achalasia of cardia; K44.9 Diaphragmatic hernia without obstruction or gangrene; R10.84 Generalized abdominal pain; Z86.0100 Personal history of colon polyps, unspecified
CPT/HCPCS: 99214

== ENCOUNTER 2024-03-28 12:52 | Outpatient (REF) | payer MEDICARE, SELFPAY ==
--- NOTE | ~2024-03-28 | XR_ITS ---
EXAMINATION: XR ABDOMEN KUB CLINICAL INDICATION: Generalized abdominal pain. COMPARISON: None available. TECHNIQUE: 2 views of the abdomen. FINDINGS: Possible trace right pleural effusion. Surgical clips project over the right upper quadrant. No abnormally dilated loops of small and large bowel are appreciated. There is moderate gas and stool throughout the colon. XR/XR KUB IMPRESSION: Nonobstructive bowel gas pattern. Moderate stool burden. Possible trace right pleural effusion. Electronically signed by: Haroon Lizama MD 03/28/2024 04:34 PM EDT
== END 2024-03-28 12:53 | disposition home or self-care (01) ==
LOC: HO.XRAY 12:52
PROVIDERS: PCP Internal Medicine; Visit Provider Internal Medicine Gastroenterology
DX: R10.84 Generalized abdominal pain (principal); E55.9 Vitamin D deficiency, unspecified; K22.0 Achalasia of cardia; K44.9 Diaphragmatic hernia without obstruction or gangrene; Z86.0100 Personal history of colon polyps, unspecified
CPT/HCPCS: 74018; 99212

== ENCOUNTER 2024-05-02 07:44 | Outpatient (AMB) | payer MEDICARE, SELFPAY ==
--- NOTE | 2024-05-02 07:53 | MHC.OFFVIS ---
Vital Signs 05/02/24 08:06 Height 5 ft 6 in Weight 143 lb BMI 23.1 BP 141/64 H Blood Pressure Location Lt brachial Position Sitting Pulse 79 Intake Visit Reasons: follow up Intake Note: Patient follow up for Achalasia of esophagus and KUB results Patient cc: abdominal discomfort, difficulty swallowing pill, between diarrhea and constipation. 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: No Accompanied by: Self / Same As Patient Allergies bupropion [From Wellbutrin] Allergy (Verified 05/02/24 07:52) Chest Pain ciprofloxacin Allergy (Verified 05/02/24 07:52) Chest Pain prednisone Allergy (Verified 05/02/24 07:52) Seizure Medication List - Last Reconciled 05/02/24 by Nayely Lyn MD albuterol sulfate 90 mcg/actuation 2 puffs inhalation Q4H PRN atorvastatin 40 mg PO BEDTIME zbzkeommqm-xxehfsct-wnsfdjwhgk 160-9-4.8 mcg/actuation (Breztri Aerosphere) 1 inh inhalation DAILY diltiazem HCl ER 240 mg PO DAILY flecainide 100 mg PO Q12H hydrochlorothiazide 12.5 mg PO BEDTIME lamotrigine 100 mg PO BID levalbuterol HCl 1.25 mg inhalation DAILY linaclotide (Linzess) 145 mcg PO DAILY 30 days nebulizers As directed omeprazole 40 mg PO BID@0630,1630 60 days Oxygen Home Use As directed polyethylene glycol 3350 (Miralax) 17 grams PO DAILY 30 days rivaroxaban (Xarelto) 20 mg PO QPM sodium chloride 0.65% ([place] Saline) 2 drps intranasal QID PRN 30 days HPI HPI follow up: Details: GI clinic visit for this 69 YF for FU of dysphagia and abnormal barium swallow TODAY'S VISIT: Pt is accompanied by her Patient cc: abdominal discomfort, difficulty swallowing pill, between diarrhea and constipation. Notes more trouble with swallowing pills than food and advised to take the pills with apple sauce. She was taking Zyrtec for PND at night and nothing during the day - advised to take non-drowsy formula during the day. She has no BM x 5 days, 6th day has 4-6 PAST VISITS MBS results and speech pathologist recommendations were reviewed with the patient and her Denies any change in dysphagia Notes post nasal drip which aggravates her symptoms at night, Having trouble with the lower stomach. Nausea all day long - not keeping her from eating Constant lower abdominal pressure Denies improvement in abd pressure after she has a BM Has a BM daily and then no BM x 2 days. Takes Senna 1 pill every night and has a BM the following day. 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 Intermittent dysphagia to solids and liquids for the past year Seen by Dr Maldonado - had a barium study and advised to fu with Dr Hargrove. Hx of heartburn x 30 years and takes Omeprazole 40 mg twice daily Patient denies recent change in appetite or weight. Notes constipation alternating with diarrhea. Has 3-4 episodes of uncontrolled diarrhea every 6 weeks and unable to leave the house - lasts for 3-4 days. Treated with Pelvic floor exercises without improvement in symptoms. Can be constipated with no BM for 3-5 days. Tried taking different medications without relief. Drinks a lot of water and gatorade Patient has asthma, emphysema and is status post removal of for Stage 1 lung cancer in 2020 She is on Home O2 at night and prn during the day On Xarelto for AF Pt denies a hx of sleep apnea - had a sleep study Denies problems with anesthesia in the past. Patient denies known family history of colon polyps, colon cancer. Family hx is positive for esophageal and stomach cancer (Dad, two paternal uncles, Pat GM). Mat Gm had thyroid cancer. 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 Trace laryngeal penetration with thin barium. No subglottic aspiration was observed. 2. Moderate cricopharyngeal achalasia. SPEECH THERAPY ASSESSMENT: This exam was conducted by the radiologist and the speech pathologist. Patient was standing for lateral view and was able to self-feed without difficulty. She trialed thin (via individual and rapid straw sips), puree, and regular solid consistencies. Note good tongue control with no premature posterior spilling. Mastication was timely and efficient. Mildly slowed posterior lingual motion. Trace lingual residue cleared with a dry swallow. Pharyngeal swallow trigger initiated as the bolus head reached the valleculae. No evidence of nasopharyngeal reflux. Partial laryngeal elevation with partial epiglottic inversion. Complete laryngeal vestibular closure with no evidence of aspiration or penetration during this exam. Partial distention and partial obstruction of flow through the pharyngoesophageal segment (PES) opening with some retrograde flow in the pharynx. Observed cricopharyngeal bar. Trace residue on the tongue base and the posterior pharyngeal wall cleared with dry swallows. Liquid Intake Recommendation: Thin Liquid Intake Strategies: Small Sips Dietary Recommendations: Regular Medication Administration: Whole with Liquid Please contact the pharmacy regarding appropriate crushable or liquid drug formulations that are available whenever modified delivery is recommended. Compensatory Strategies Recommended: Sitting Upright (90 deg), Double Swallow, Small Bites and Sips, Alternate Liquids/Solids, Rate of Ingestion Change Supervision during eating and or drinking: None Needed Recommendation for Speech Therapy: NA:Typical EvaluationText Comment: Intake Recommendations: Route: PO Diet Grade: Regular Liquid Consistencies: Thin Post-Study Functional Oral Intake Scale (FOIS): 7- Total oral intake with no restrictions Oral phase was overall unremarkable, with good lingual control, intact rotary chew, and adequate oral clearance. Noted cricopharyngeal achalasia and partial distention through the PES which may be contributing to patient?s symptoms of globus sensation. No evidence of aspiration or penetration during this exam. Patient was able to clear trace residue in the pharynx with dry swallows. Suggested Referrals: The patient might benefit from a referral to: Gastroenterology Indication for Referral: cricopharyngeal achalasia Therapy Recommendations: Speech therapy is not indicated at this time. Recommend patient continue on a regular texture diet with thin liquids. Discussed behavioral strategies with patient to promote clearance: Take small bites, chew food well, alternate with sips of liquid, dry swallows between bites, maintain upright position while eating/drinking and for at least 30 minutes afterwards. Patient verbalized understanding and denied having any questions at this time. Advised patient to continue monitoring her dysphagia. If there are any changes or worsening of symptoms, she may benefit from a repeat-assessment. Prognosis for Improvement: The prognosis for the patient to meet nutritional needs by mouth is good based on degree of impairment. Clinician - Supplemental, Miscellaneous Communication: It is important to note MBSS objective studies are snapshots in time and Patient function might vary with factors such as time of day or concomitant medical conditions. For this reason, the final treatment plan for this patient should rest with their medical care team. Additional recommendations should be considered with the totality of the Patient in mind. 01/2023 BARIUM SWALLOW SHOWED: 1. Mild laryngeal penetration on thick barium identified, without extension to the true cords. No subglottic aspiration. 2. Mild to moderate cricopharyngeal achalasia. 3. Episodic gastroesophageal reflux to the level of the aortic arch. 4. Small to moderate sized type I hiatus hernia. 5. Somewhat patulous appearing esophagus without mucosal abnormality, stricture, or mass. Disordered esophageal motility consistent with moderate presbyesophagus. 6. Perceived gastric fold thickening, possibly artifactual due to inability of the patient to retain the effervescent granule gas, or possibly representing gastritis. No ulceration or mass evident. 7. Normal duodenal bulb and sweep. ENDOSCOPIC STUDIES: 2014 Colonoscopy was performed by Dr. Hargrove and a small tubular adenoma was removed from the transverse colon Had a stool Cologuard within the past 3 year - negative per patient. PAST GI HISTORY BY REVIEW OF MEDICAL RECORDS: Note by ALEXYS Page: 68-year-old female multiple comorbid illness- O2- dependent-SOB referred with achalasia Established with Dr. Hargrove-for many years-seen a couple months ago- referring to Barium- no further recommendations don't worry about it Spoke further with Dr. Hargrove- he declined procedure due to anesthesia risk- She is hypoxic-shewas told unless life threatening no procedures or anesthesia- Barium swallow 01/2023- Follows with ENT- Saw pcp-Dr. Ni-referred for 2nd opinion She has difficulty swallowing- 2020-lung CA-surgical- Dr. Farooq Espinosa-3 yr scan-no recurrence She was seen previously @ [facility]- pulmonary-Sz- DX-disorder- 2019- Appetite is good- no wt loss Colonoscopy- Dr. Hargrove [facility] Sz. disorder [facility] Medical History (Updated 05/02/24 @ 08:35 by Nayely Lyn MD) Dyslipidemia History of adenomatous polyp of colon Hx of TIA (transient ischemic attack) and stroke History of seizure disorder History of lung cancer Achalasia of esophagus Osteoporosis HTN (hypertension) KRISTEN on CPAP Asthma-COPD overlap syndrome GERD (gastroesophageal reflux disease) Surgical History S/P cardiac catheterization S/P partial lobectomy of lung H/O wrist surgery History of cholecystectomy Family History Mother Small cell lung cancer Father Stomach cancer Brother Diabetes Throat cancer Social History Household Members: Spouse and Children Housing: House Do you presently have visiting nurse or other home services: No Alcohol intake: current Alcohol intake frequency: does not drink Patient Tobacco Use Status: Former Tobacco user Years Smoked: 30 +/- e-Cigarette/Vaping Use: Never Used Advance Directives Date on File: 04/21/22 service: No Current occupational status: retired Cognitive needs: No Hearing needs: No Vision needs: Yes Review of Systems Const All systems reviewed & are unremarkable except as noted in HPI and below Physical Exam Vital Signs: Last Vital Signs Pulse 79 05/02/24 08:06 BP 141/64 H 05/02/24 08:06 BMI result Body Mass Index 23.1 Const General: no acute distress Nutritional Appearance: average body habitus Orientation/consciousness: patient oriented x3 Limitations: no limitations HEENT Head: Yes normal to inspection Ears: hearing grossly normal bilaterally Eyes Sclerae: sclerae normal Pupils: Equal, round and reactive pupils present Neck Neck: Yes normal visual inspection Chest Chest palpation & inspection: normal inspection of the chest Resp Effort & Inspection: normal respiratory effort Auscultation: clear to auscultation bilaterally Cardio Palpation: normal PMI Rate: regular rate Rhythm: regular rhythm Heart sounds: S1 normal heart sound present, S2 normal heart sound present and no murmurs GI Palpation (GI): Soft to palpation, Tenderness to palpation present (GI) (mild diffuse abdominal tenderness) and No hepatosplenomegaly present Auscultation: normal bowel sounds Rectal Exam - Female: deferred Skin General skin exam: no rashes or lesions noted Neuro General: patient oriented x3, gait normal and moves all extremities Cranial nerves: Yes Equal, round and reactive pupils present Psych Appearance: grossly normal Mental Status: mental status grossly normal Assessment & Plan Assessment & Plan (1) Hiatal hernia: Code(s): K44.9 - Diaphragmatic hernia without obstruction or gangrene Category: Medical (2) Cricopharyngeal achalasia: Code(s): K22.0 - Achalasia of cardia Category: Medical (3) Diffuse abdominal pain: Code(s): R10.84 - Generalized abdominal pain Category: Medical (4) History of colon polyps: Comment: 2014 Colonoscopy was performed by Dr. Hargrove and a small tubular adenoma was removed from the transverse colon Had a stool Cologuard within the past 3 year - negative per patient. Pt considered high risk for anesthesia due to asthma-COPD overlap syndrome Code(s): Z86.0100 - Personal history of colon polyps, unspecified Category: Medical (5) Post-nasal drip: Code(s): R09.82 - Postnasal drip Category: Medical Plan 69 YF with intermittent dysphagia to solids and liquids for the past year Dysphagia is likely a combination of esophageal motility disorder and crico-pharyngeal achalasia as seen on barium swallow Pt complains of constipation with no BM for 3-5 days and episodes of uncontrolled diarrhea every 6 weeks - she likely has chronic constipation followed by paradoxical diarrhea. Barium swallow results reviewed with the patient. She was advised that further evaluation with EGD can be high risk and not likely to provide residential relief of dysphagia Pt was advised to: 1. Schedule a modified barium swallow with speech pathologist. 2. To take a soft diet, chew her food well and take it with sips of fluids 3. Take Senna 1 tablet or capsule at bedtime for a week and increase to 2 tab/capsules if needed 03/28/24 Having trouble with the lower stomach. Nausea all day long - not keeping her from eating Constant lower abdominal pressure Denies improvement in abd pressure after she has a BM Has a BM daily and then no BM x 2 days. Takes Senna 1 pill every night and has a BM the following day. ADDENDUM: KUB SHOWED: Nonobstructive bowel gas pattern. Moderate stool burden. Possible trace right pleural effusion. Pt called and KUB results reviewed. Advised to increase Senna to two tab at bedtime Take Miralax once a day every morning. Advised to call if no improvement in symptoms in 1-2 weeks. 05/02/24 Notes more trouble with swallowing pills than food and advised to take the pills with apple sauce. She was taking Zyrtec for PND at night and nothing during the day - advised to take non-drowsy formula during the day and nasal saline drops prn. Pt advised to increase senna to 2 pills twice a day. If she continues to have constipation she can start taking Linzess 145 mcg daily and discontinue the senna FU in 3 weeks Medications: New sodium chloride 0.65% ([place] Saline) 2 drps intranasal QID PRN 50 mL 3RF dry nasal passages 30 days R09.82 - Postnasal drip linaclotide (Linzess) 145 mcg PO DAILY 30 caps 0RF 30 days Coding Level of Care Code Est Pt Level 4 (96364) Diagnoses Hiatal hernia K44.9 Cricopharyngeal achalasia K22.0 Diffuse abdominal pain R10.84 History of colon polyps Z86.0100 Post-nasal drip R09.82 Time Spent (min) 23
[2024-05-02 08:06] VITALS: BP 141/64; PULSE 79; BMI 23.1
== END 2024-05-02 08:51 | disposition home or self-care (01) ==
PROVIDERS: PCP Internal Medicine; Visit Provider Internal Medicine Gastroenterology
DX: K44.9 Diaphragmatic hernia without obstruction or gangrene (principal); K22.0 Achalasia of cardia; R10.84 Generalized abdominal pain; Z86.0100 Personal history of colon polyps, unspecified; R09.82 Postnasal drip
CPT/HCPCS: 99214

== ENCOUNTER → 2024-05-02 07:44 | Outpatient (BNVA) | payer MEDICARE, SELFPAY | PROVIDERS: PCP Internal Medicine; Visit Provider Internal Medicine Gastroenterology | DX: K44.9 Diaphragmatic hernia without obstruction or gangrene (principal); K22.0 Achalasia of cardia; R10.84 Generalized abdominal pain; R09.82 Postnasal drip; Z86.0100 Personal history of colon polyps, unspecified | CPT/HCPCS: 99212 ==

== ENCOUNTER 2024-05-03 09:13 | Outpatient (REF) | payer MEDICARE, SELFPAY | END 2024-05-03 09:14 | disposition home or self-care (01) | LOC: HO.LAB 09:13 | PROVIDERS: PCP Internal Medicine; Visit Provider Internal Medicine | DX: N30.01 Acute cystitis with hematuria (principal); B96.20 Unspecified Escherichia coli [E. coli] as the cause of diseases classified elsewhere | CPT/HCPCS: 81003; 87086; 87088; 87186; 99212 ==

== ENCOUNTER 2024-05-03 09:13 | Outpatient (AMB) | payer MEDICARE, SELFPAY ==
[2024-05-03 09:40] VITALS: BP 128/64; PULSE 73; O2SAT 92; BMI 23.2
--- NOTE | 2024-05-03 09:40 | MHC.OFFWIV ---
Intake Vital Signs 05/03/24 09:40 Height 5 ft 6 in Weight 144 lb BMI 23.2 BP 128/64 Blood Pressure Location Rt brachial Position Sitting Pulse 73 Pulse Source Pulse Oximeter Pulse Oximetry (%) 92 Oxygen Delivery Method Room Air Intake Visit Reasons: EP ? UTI Patient Tobacco Use Status: Former Tobacco user Allergies bupropion [From Wellbutrin] Allergy (Verified 05/03/24 09:41) Chest Pain ciprofloxacin Allergy (Verified 05/03/24 09:41) Chest Pain prednisone Allergy (Verified 05/03/24 09:41) Seizure Medication List - Last Reconciled 05/03/24 by Mirta Romero MD albuterol sulfate 90 mcg/actuation 2 puffs inhalation Q4H PRN atorvastatin 40 mg PO BEDTIME cicfteunil-uxpwniyk-ncaltyowvo 160-9-4.8 mcg/actuation (Breztri Aerosphere) 1 inh inhalation DAILY diltiazem HCl ER 240 mg PO DAILY flecainide 100 mg PO Q12H hydrochlorothiazide 12.5 mg PO BEDTIME lamotrigine 100 mg PO BID levalbuterol HCl 1.25 mg inhalation DAILY linaclotide (Linzess) 145 mcg PO DAILY 30 days nebulizers As directed omeprazole 40 mg PO BID@0630,1630 60 days Oxygen Home Use As directed polyethylene glycol 3350 (Miralax) 17 grams PO DAILY 30 days rivaroxaban (Xarelto) 20 mg PO QPM sodium chloride 0.65% ([place] Saline) 2 drps intranasal QID PRN 30 days Do you need a note to return to daycare/school/sports/work: No HPI EP ? UTI HPI Details Patient is 69-year-old female came in today to be evaluated for possible UTI Symptoms started last night She is having dysuria and frequency and has noticed some blood in the urine There is no fever no chills She has COPD and have chronic cough as well UA shows signs of infection with 3+ leuk esterase and 3+ blood I am treating her with Macrobid b.i.d. for 5 days We will send urine for culture as well. Review system are negative for any fever chills headache there is mild nausea but no vomiting no diarrhea No new back pains PFSH Medical History Dyslipidemia History of adenomatous polyp of colon Hx of TIA (transient ischemic attack) and stroke History of seizure disorder History of lung cancer Achalasia of esophagus Osteoporosis HTN (hypertension) KRISTEN on CPAP Asthma-COPD overlap syndrome GERD (gastroesophageal reflux disease) Surgical History S/P cardiac catheterization S/P partial lobectomy of lung H/O wrist surgery History of cholecystectomy Family History Mother Small cell lung cancer Father Stomach cancer Brother Diabetes Throat cancer Social History Household Members: Spouse and Children Housing: House Do you presently have visiting nurse or other home services: No Alcohol intake: current Alcohol intake frequency: does not drink Patient Tobacco Use Status: Former Tobacco user Years Smoked: 30 +/- e-Cigarette/Vaping Use: Never Used Advance Directives Date on File: 04/21/22 service: No Current occupational status: retired Cognitive needs: No Hearing needs: No Vision needs: Yes Review of Systems Const All systems reviewed & are unremarkable except as noted in HPI and below Physical Exam Vital Signs: Last Vital Signs Pulse 73 05/03/24 09:40 BP 128/64 05/03/24 09:40 Pulse Ox 92 05/03/24 09:40 Oxygen Delivery Method Room Air 05/03/24 09:40 BMI result Body Mass Index 23.2 Const General: no acute distress Orientation/consciousness: patient oriented x3 Eyes General: appearance normal, both eyes and all related structures Resp Effort & Inspection: normal respiratory effort and able to speak in complete sentences GI Other: Mild suprapubic discomfort with pressure General: Yes no CVA tenderness Back/Spine/Pelvis Back: no CVA tenderness Neuro General: patient oriented x3 Psych Mental Status: mental status grossly normal Results AMB Urinalysis, Automated UA Leukoctes 500 Tonya/uL Last Edit by En Gomes CMA on 05/03/24 09:43 UA Nitrite Positive Last Edit by En Gomes CMA on 05/03/24 09:43 UA Urobilinogen 0.2 mg/dL Last Edit by En Gomes CMA on 05/03/24 09:43 UA Protein 30 mg/dL Last Edit by En Gomes CMA on 05/03/24 09:43 UA pH 6.0 Last Edit by En Gomes CMA on 05/03/24 09:43 UA Blood 200 [place]/uL Last Edit by En Gomes CMA on 05/03/24 09:43 UA Specific [place] 1.030 Last Edit by En Gomes CMA on 05/03/24 09:43 UA Ketone Negative Last Edit by En Gomes CMA on 05/03/24 09:43 UA Bilirubin 0 mg/dL Last Edit by En Gomes CMA on 05/03/24 09:43 UA Glucose 0 mg/dL Last Edit by En Gomes CMA on 05/03/24 09:43 Results Reviewed Results Reviewed: Laboratory Last Values Urine pH (Auto) 6.0 05/03/24 09:42 Specific [place] (Auto) 1.030 05/03/24 09:42 Urine Protein (Auto) 30 mg/dL 05/03/24 09:42 Glucose (UA)(Auto) 0 mg/dL 05/03/24 09:42 Urine Ketones (Auto) Negative 05/03/24 09:42 Urine Blood (Auto) 200 [place]/uL 05/03/24 09:42 Urine Nitrite (Auto) Positive 05/03/24 09:42 Urine Bilirubin (Auto) 0 mg/dL 05/03/24 09:42 Urine Urobilinogen (Auto) 0.2 mg/dL 05/03/24 09:42 Leukocyte Esterase (Auto) 500 Tonya/uL 05/03/24 09:42 Assessment & Plan Assessment & Plan (1) Acute cystitis with hematuria: Code(s): N30.01 - Acute cystitis with hematuria Plan Patient is 69-year-old female came in today to be evaluated for possible UTI Symptoms started last night She is having dysuria and frequency and has noticed some blood in the urine There is no fever no chills She has COPD and have chronic cough as well UA shows signs of infection with 3+ leuk esterase and 3+ blood I am treating her with Macrobid b.i.d. for 5 days We will send urine for culture as well. Review system are negative for any fever chills headache there is mild nausea but no vomiting no diarrhea No new back pains Orders: Orders Urine Culture Today N30.01 - Acute cystitis with hematuria AMB Urinalysis Automated Today Z13.9 - Encounter for screening, unspecified Medications: New nitrofurantoin monohyd/m-cryst 100 mg (Macrobid) must administer with a meal/food 100 mg PO Q12H 5 days 10 caps 0RF Coding Level of Care Code Est Pt Level 3 (88226) Diagnoses Acute cystitis with hematuria N30.01
== END 2024-05-03 09:48 | disposition home or self-care (01) ==
PROVIDERS: PCP Internal Medicine; Visit Provider Internal Medicine
DX: Z13.9 Encounter for screening, unspecified (principal); N30.01 Acute cystitis with hematuria

== ENCOUNTER 2024-05-06 14:00 | Outpatient (AMB) | payer MEDICARE, SELFPAY ==
[2024-05-06 14:03] VITALS: BP 142/60; PULSE 90; O2SAT 90; BMI 22.9
--- NOTE | 2024-05-06 14:03 | A.OFFVIS_ITS ---
Vital Signs 05/06/24 14:03 Height 5 ft 6 in Weight 142 lb 3.17 oz BMI 22.9 BP 142/60 H Blood Pressure Location Lt brachial Position Sitting Pulse 90 Pulse Source Pulse Oximeter Pulse Oximetry (%) 90 L Oxygen Delivery Method Room Air Intake Visit Reasons: COPD [employer] Required: No Allergies bupropion [From Wellbutrin] Allergy (Verified 05/06/24 14:08) Chest Pain ciprofloxacin Allergy (Verified 05/06/24 14:08) Chest Pain prednisone Allergy (Verified 05/06/24 14:08) Seizure HPI Comments Details: The patient is a 69 year woman with a known history of COPD in addition to lung cancer. Apparently she underwent a screening imaging study demonstrating a right upper lobe pulmonary malignant process. She referred to thoracic surgery where she underwent a right upper lobe lobectomy with curative intent. The patient was indeed confirmed to have cancer and she did not need any chemo or ra diation. She did have her serial CT scans every 6 months and now moved over to every year. Back in March 2022 she was admitted to the hospital with palpitations cardiac arrhythmia and atrial fibrillation. During the hospitalization she did have a CTA which was personally by me demonstrating the postsurgical changes in addition to all other subcentimeter pulmonary nodules. in addition to this her CT scan demonstrates evidence of mosaic pattern suggesting of air trapping from her obstructive airway disease. Regards of her COPD the patient was placed on azithromycin which she is has been taking. Although, she is also been taking flecainide which is a concern as far as QT prolongation and severe cardiac arrhythmias. Therefore, the patient is okay stopping the medication at this time. She is using Breztri inhaler which has been affecting beneficial. Does not appear to be activating her atrial fibrillation. In addition to this the patient does have a hiatal hernia. She does sleep elevated and does take a PPI. Currently she is asymptomatic. 05/25/2023 the patient is here for a pulmonary follow-up visit. The patient now is recovering from COVID-19. She does fairly sick. She yet is 2 weeks out. The patient still having some shortness of breath chest tightness and chest congestion. She also feels fatigued. She did not take packs [place]. She had not taken any medications. She has been using her nebulizer and also her respiratory medicines. She does have a history atrial fibrillation. I will switch her DuoNeb over to Xopenex to minimize in the irritability to the heart. The patient also she underwent pulmonary function studies. It was very hard for her to go them. Consistent with her COPD in addition to diffusion impairment. She does have oxygen available. She will benefit from pulmonary rehabilitation. Will consider this when she improves after having COVID. We did review her CT scan of the chest that she had back in 2021. She does appear to have some irregular airways likely just kinking of the airways postoperatively. Although would not be unreasonable to consider bronchoscopy. We will reassess her in the springtime. If she continues to be symptomatic will consider bronchoscopy otherwise will wait for CT scan that will be done sometime in October. [id number] the patient is here for a pulmonary follow-up visit. The patient overall has been doing okay. She does have a follow-up with thoracic surgery this week to follow-up with her CT scan of the chest. Her CT scan did get the report and is reassuring with postoperative changes and stable pulmonary nodules. She continues to have shortness of breath. Does not seem to respond as well to the respiratory inhaler, Breztri. She would like to try Trelegy instead. I will send to the pharmacy and see flu prior approval. The patient also has a rescue medicine that she can use as needed. She complains of the shortness of breath with activity. Moderate severity even with minimal activity. The patient is likely deconditioned. She needs to start pulmonary rehabilitation. She is agreeable at this time start here. Her last PFTs did demonstrate significant COPD. 01/04/2024 the patient is here for a pulmonary follow-up visit. She is having hard time with the breathing. Having chest congestion cough shortness of breath. She has been using her nebulizer with partial improvement. She has been noticing increasing breathlessness moderate severity. The patient denies any fevers or chills. She did recently was placed on Macrobid for UTI and she is also dealing with dental issues. Feels that she has not dental infection. She started to cough more as well and has been having more chest congestion. Her CT scans at now yearly based on her stability of her lung cancer history this is followed by thoracic surgery at [facility]. In addition to that the patient needs additional respiratory medications. Inhalers have not effective. Therefore which is switch over to nebulized therapy. She continues on the Xopenex that she continue continue twice a day. Will go ahead and add a long- acting muscarinic antagonist and also add a inhaled corticosteroid via nebulizer. The patient follow-up in 3 4 months. If the patient is no better she will call for further evaluation. [facility] [place] Medical History (Updated 05/06/24 @ 20:28 by Samuel Redman MD) COPD (chronic obstructive pulmonary disease) Dyslipidemia History of adenomatous polyp of colon Hx of TIA (transient ischemic attack) and stroke History of seizure disorder History of lung cancer Achalasia of esophagus Osteoporosis HTN (hypertension) KRISTEN on CPAP Asthma-COPD overlap syndrome GERD (gastroesophageal reflux disease) Surgical History S/P cardiac catheterization S/P partial lobectomy of lung H/O wrist surgery History of cholecystectomy Family History Mother Small cell lung cancer Father Stomach cancer Brother Diabetes Throat cancer Social History Household Members: Spouse and Children Housing: House Do you presently have visiting nurse or other home services: No Alcohol intake: current Alcohol intake frequency: does not drink Patient Tobacco Use Status: Former Tobacco user Years Smoked: 30 +/- e-Cigarette/Vaping Use: Never Used Advance Directives Date on File: 04/21/22 service: No Current occupational status: retired Cognitive needs: No Hearing needs: No Vision needs: Yes Review of Systems Const Denies chills, Reports fatigue, Denies fever(s), Denies frequent falls, Denies weakness, Denies weight gain and Denies weight loss Eyes Denies change in vision ENT Denies dizziness and Denies throat swelling Card Denies chest pain, Denies leg edema, Denies lightheadedness, Denies palpitations, Denies dyspnea, Reports dyspnea on exertion, Denies orthopnea and Denies other (loss of consciousness) Resp Reports change in phlegm color, Reports chest congestion, Reports cough, Denies dyspnea, Reports dyspnea on exertion and Reports wheezing GI Denies hematochezia and Denies change in stool character Musc Denies abnormal gait, Denies muscle weakness, Denies numbness, Denies radiating pain into limb and Denies tingling Neuro Denies abnormal gait, Denies dizziness, Denies frequent falls, Denies numbness, Denies tingling and Denies weakness Endo Reports fatigue and Denies palpitations Aller/Immun Denies seasonal rhinorrhea, Denies throat swelling and Reports wheezing Physical Exam Vital Signs: Last Vital Signs Pulse 90 05/06/24 14:03 BP 142/60 H 05/06/24 14:03 Pulse Ox 90 L 05/06/24 14:03 Oxygen Delivery Method Room Air 05/06/24 14:03 BMI result Body Mass Index 22.9 Const General: cooperative, comfortable and no acute distress Orientation/consciousness: patient oriented x3 Chest Chest palpation & inspection: normal inspection of the chest Resp Effort & Inspection: normal respiratory effort and prolonged expiratory phase Auscultation: no wheezes and diminished lung sounds Cardio Rate: regular rate Rhythm: regular rhythm Heart sounds: S1 normal heart sound present and S2 normal heart sound present Neuro General: patient oriented x3 Extrem General: Yes no pedal edema Assessment & Plan Assessment & Plan (1) Asthma-COPD overlap syndrome: Code(s): J44.9 - Chronic obstructive pulmonary disease, unspecified Category: Medical (2) Lung cancer: Code(s): C34.90 - Malignant neoplasm of unspecified part of unspecified bronchus or lung Category: Medical Qualifiers: Laterality: unspecified laterality Lung location: unspecified part of lung Qualified Code(s): C34.90 - Malignant neoplasm of unspecified part of unspecified bronchus or lung (3) KRISTEN on CPAP: Code(s): G47.33 - Obstructive sleep apnea (adult) (pediatric) Category: Medical (4) COPD (chronic obstructive pulmonary disease): Code(s): J44.9 - Chronic obstructive pulmonary disease, unspecified Category: Medical Qualifiers: COPD type: COPD with acute exacerbation Qualified Code(s): J44.1 - Chronic obstructive pulmonary disease with (acute) exacerbation Plan start Augmentin start Prednisone if no better stop Breztri start BUdesonide daily start Yupelri daily GÓMEZ as needed continue Xopenex for nebulizer medicine Serial CT chest as per Thoracic surgery, October 2023 was good, yearly 2024 sleep elevated pulmonary rehab F/U 6-8 months Medications: New budesonide 0.5 mg (2 mL) inhalation DAILY 60 mL 11RF 30 days J44.9 - Chronic obstructive pulmonary disease, unspecified revefenacin (Yupelri) 175 mcg (3 mL) inhalation DAILY 90 mL 11RF J44.9 - Chronic obstructive pulmonary disease, unspecified amoxicillin-pot clavulanate 875-125 mg 1 tab PO BID 20 tabs 0RF 10 days prednisone PO daily; Take 2 tabs daily x 5 days, then 1 tablet daily x 5 days 15 tabs 0RF 10 days levalbuterol HCl 1.25 mg (3 mL) inhalation BID 180 mL 0RF 30 days J44.9 - Chronic obstructive pulmonary disease, unspecified Coding Level of Care Code Est Pt Level 4 (86257) Complex EM visit Add On G2211 Diagnoses Asthma-COPD overlap syndrome J44.9 Malignant neoplasm of lung, unspecified laterality, unspecified part of lung C34.90 Laterality: unspecified laterality Lung location: unspecified part of lung KRISTEN on CPAP G47.33 Chronic obstructive pulmonary disease with acute exacerbation J44.1 COPD type: COPD with acute exacerbation Time Spent (min) 17
== END 2024-05-06 14:30 | disposition home or self-care (01) ==
PROVIDERS: PCP Internal Medicine; Visit Provider Hospitalist
DX: J44.9 Chronic obstructive pulmonary disease, unspecified (principal); C34.90 Malignant neoplasm of unspecified part of unspecified bronchus or lung; G47.33 Obstructive sleep apnea (adult) (pediatric); J44.1 Chronic obstructive pulmonary disease with (acute) exacerbation
CPT/HCPCS: 99214; G2211

== ENCOUNTER → 2024-05-06 14:00 | Outpatient (BNVA) | payer MEDICARE, SELFPAY | PROVIDERS: PCP Internal Medicine; Visit Provider Hospitalist | DX: J44.1 Chronic obstructive pulmonary disease with (acute) exacerbation (principal); C34.90 Malignant neoplasm of unspecified part of unspecified bronchus or lung; G47.33 Obstructive sleep apnea (adult) (pediatric); Z87.891 Personal history of nicotine dependence | CPT/HCPCS: 99212 ==

== ENCOUNTER 2024-05-21 09:33 | Outpatient (AMB) | payer MEDICARE, SELFPAY ==
[2024-05-21 10:46] VITALS: BP 130/66; PULSE 68; O2SAT 94; BMI 23.2
--- NOTE | 2024-05-21 10:46 | MHC.PC.OV ---
Vital Signs 05/21/24 10:46 Height 5 ft 6 in Weight 144 lb BMI 23.2 BP 130/66 Blood Pressure Location Lt brachial Position Sitting Pulse 68 Pulse Source Pulse Oximeter Pulse Oximetry (%) 94 Oxygen Delivery Method Room Air Intake Visit Reasons: Rt breast nodule Intake Note: Pt is here today c/o nodule Rt breast Allergies bupropion [From Wellbutrin] Allergy (Verified 05/21/24 10:52) Chest Pain ciprofloxacin Allergy (Verified 05/21/24 10:52) Chest Pain prednisone Allergy (Verified 05/21/24 10:52) Seizure Medication List - Last Reconciled 05/21/24 by Hayley Ni MD albuterol sulfate 90 mcg/actuation 2 puffs inhalation Q4H PRN atorvastatin 40 mg PO BEDTIME budesonide 0.5 mg (2 mL) inhalation DAILY 30 days diltiazem HCl ER 240 mg PO DAILY flecainide 100 mg PO Q12H hydrochlorothiazide 12.5 mg PO BEDTIME lamotrigine 100 mg PO BID levalbuterol HCl 1.25 mg (3 mL) inhalation BID 30 days nebulizers As directed omeprazole 40 mg PO BID@0630,1630 60 days Oxygen Home Use As directed polyethylene glycol 3350 (Miralax) 17 grams PO DAILY 30 days revefenacin (Yupelri) 175 mcg (3 mL) inhalation DAILY rivaroxaban (Xarelto) 20 mg PO QPM sodium chloride 0.65% ([place] Saline) 2 drps intranasal QID PRN 30 days Tobacco use date assessed: 05/21/24 Fall risk assessment: 2 + Falls in past year Last assessed Fall Risk: 05/21/24 Dental Screening Dental Screen Date: 05/21/24 Did you have a dental visit in the last 12 months?: Yes Did you have a dental problem in the last 6 months where you did not have access to dental care?: No Was dental information given to patient?: Patient has dentist HPI Rt breast nodule HPI Details - The patient is a 69-year-old female presenting with a palpable nodule in the right breast. - The patient noted the nodule within the last week while in bed. - The nodule is located at the 10-11 o'clock position in the right breast, just below the armpit, and is described as mobile. - There is no associated nipple discharge or significant discomfort. - No significant family history of breast cancer is reported. - The patient underwent a mammogram last year, which was normal. - The patient has a history of lung cancer, treated with a right upper and partial middle lobectomy without chemotherapy, approximately two years ago in 2020. - No breast implants present, no known history of breast issues, and the patient is scheduled for a diagnostic mammogram. [facility] Medical History (Updated 05/27/24 @ 00:17 by Hayley Ni MD) History of lung cancer Breast mass, right COPD (chronic obstructive pulmonary disease) Dyslipidemia History of adenomatous polyp of colon Hx of TIA (transient ischemic attack) and stroke History of seizure disorder Achalasia of esophagus Osteoporosis HTN (hypertension) KRISTEN on CPAP Asthma-COPD overlap syndrome GERD (gastroesophageal reflux disease) Surgical History S/P cardiac catheterization S/P partial lobectomy of lung H/O wrist surgery History of cholecystectomy Family History Mother Small cell lung cancer Father Stomach cancer Brother Diabetes Throat cancer Social History Household Members: Spouse and Children Housing: House Do you presently have visiting nurse or other home services: No Alcohol intake: current Alcohol intake frequency: does not drink Patient Tobacco Use Status: Former Tobacco user Years Smoked: 30 +/- e-Cigarette/Vaping Use: Never Used Advance Directives Date on File: 04/21/22 service: No Current occupational status: retired Cognitive needs: No Hearing needs: No Vision needs: Yes Questionnaire PHQ-9 Over the last 2 weeks, how often have you been bothered by any of the following problems? 54320 - PHQ-9 Billing: Yes Source: Developed by Drs. Noah Elizabeth, Samia Herzog, Salbador Donovan and colleagues, with an educational sonal from [employer]. Thrive Questionnaire Date Thrive assessed: 05/18/24 I am a: Patient What is your living situation today?: I have a steady place to live Within the past 12 months, did the food you bought not last and you didn't have the money to get more?: Never true Within the past 12 months, did you worry whether your food would run out before you got money to buy more?: Never true Do you have trouble paying for medicines?: No Do you have trouble getting transportation to medical appointments?: No Do you have trouble paying your heating and electricity bill?: No Do you have trouble taking care of your child, family member or friend?: No Do you have trouble with day-to-day activities such as bathing, preparing meals, shopping, managing finances, etc.?: No Are you currently unemployed and looking for a job?: No Are you interested in more education?: No Please select the resources that you would like help with: None Currently or been in a relationship where the following occur: No concerns reported THRIVE Score: 0 AUDIT C Alcohol Use Questionnaire (AUDIT-C) 1. How often do you have a drink containing alcohol?: Never Total Score: 0 KT-7 AMB Questionnaire KT-7 Date KT - 7 assessed: 10/26/23 Feeling nervous, anxious, or on edge: 0 = Not at all Not being able to stop or control worryin = Not at all Worrying too much about different things: 0 = Not at all Trouble relaxin = Not at all Being so restless that it is hard to sit still: 0 = Not at all Becoming easily annoyed or irritable: 0 = Not at all Feeling afraid as if something awful might happen: 0 = Not at all Total KT-7 score (0-4 normal; 5-9 mild; 10-14 moderate; 15-21 severe): 0 Source: Developed by Drs. Noah Elizabeth, Samia Herzog, Salbador Donovan and colleagues, with an educational sonal from [employer]. Review of Systems Const All systems reviewed & are unremarkable except as noted in HPI and below Physical exam (Primary Care) Vital Signs: Last Vital Signs Pulse 68 05/21/24 10:46 BP 130/66 05/21/24 10:46 Pulse Ox 94 05/21/24 10:46 Oxygen Delivery Method Room Air 05/21/24 10:46 BMI result Body Mass Index 23.2 Tobacco/Smoking Status: Tobacco use Status Tobacco use date assessed 05/21/24 05/21/24 10:51 Patient Tobacco Use Status Former Tobacco user 05/21/24 10:51 Tobacco use type 04/01/24 14:36 e-Cigarette/Vaping Use Never Used 05/21/24 10:51 PHQ-9: PHQ-9 Score PHQ-9: Total score 0 05/21/24 10:52 Thrive Assessment: Date of Thrive Assessment Date Thrive assessed 05/18/24 05/21/24 10:51 Currently or been in a relationship where the following occur: No concerns reported Const General: comfortable, no acute distress and alert Orientation/consciousness: patient oriented x3 Neck Neck: Yes full ROM, Yes no lymphadenopathy and Yes supple Chest Other: nontender nodule at 10:30 position right breast Resp Auscultation: clear to auscultation bilaterally Cardio Rate: regular rate Rhythm: regular rhythm Heart sounds: S2 normal heart sound present Skin General skin exam: no rashes or lesions noted Neuro General: patient oriented x3 Coding Level of Care Code Est Pt Level 3 (85465) Diagnoses Mass of upper outer quadrant of right breast N63.11 Breast mass location: upper outer quadrant History of lung cancer Z85.118 Additional Codes PHQ-9 - 62434 - PHQ-9 Billing: Yes ([id number]) Assessment & Plan Assessment & Plan (1) Breast mass, right: Code(s): N63.10 - Unspecified lump in the right breast, unspecified quadrant Category: Medical Qualifiers: Breast mass location: upper outer quadrant Qualified Code(s): N63.11 - Unspecified lump in the right breast, upper outer quadrant (2) History of lung cancer: Code(s): Z85.118 - Personal history of other malignant neoplasm of bronchus and lung Category: Medical Plan Patient was informed and verbally consented to the use of an ambient scribe for clinic note documentation during this visit. I discussed the presence of a non-tender, mobile nodule in the patient's right breast. I have ordered a STAT bilateral diagnostic mammogram and reviewed the possibility of requiring an ultrasound based on mammogram findings. I explained the importance of early detection and the need for a thorough evaluation to the patient. I assured the patient that a detailed assessment is crucial and encouraged prompt follow-up upon completion of the diagnostic imaging. I also noted that the nodules' mobility is a reassuring sign, though it must still be carefully examined. I relayed that results or further instructions would be quickly communicated once available. Patient was informed and verbally consented to the use of an ambient scribe for clinic note documentation during this visit. Orders: Orders MM tomosynthesis diagnostic BI 05/24/24 N63.10 - Unspecified lump in the right breast, unspecified quadrant, Z85.118 - Personal history of other malignant neoplasm of bronchus and lung
== END 2024-05-21 13:00 | disposition home or self-care (01) ==
PROVIDERS: PCP Internal Medicine; Visit Provider Internal Medicine
DX: N63.11 Unspecified lump in the right breast, upper outer quadrant (principal); Z85.118 Personal history of other malignant neoplasm of bronchus and lung

== ENCOUNTER → 2024-05-21 09:33 | Outpatient (BNVA) | payer MEDICARE, SELFPAY | PROVIDERS: PCP Internal Medicine; Visit Provider Internal Medicine | DX: N63.11 Unspecified lump in the right breast, upper outer quadrant (principal); Z85.118 Personal history of other malignant neoplasm of bronchus and lung | CPT/HCPCS: 96127; 99212 ==

== ENCOUNTER 2024-05-24 11:42 | Outpatient (REF) | payer MEDICARE, SELFPAY ==
--- NOTE | ~2024-05-24 | MM_ITS ---
EXAMINATION: MM DIAGNOSTIC DIGITAL BREAST TOMOSYNTHESIS, BILATERAL Limited right breast ultrasound. CLINICAL INFORMATION: Right upper outer quadrant palpable lump. COMPARISON: Mammography: Comparison is made with relevant prior exams. TECHNIQUE: Digital breast mammography with tomosynthesis is performed in both the craniocaudal and mediolateral oblique views along with computer-aided detection (CAD). Limited right breast ultrasound. FINDINGS: There are scattered areas of fibroglandular density (ACR BI-RADS breast composition Category b). Left: There are no significant masses, abnormal calcifications, or other abnormalities. Right: Palpable BB marker in the upper outer quadrant other underlying abnormality. No suspicious calcifications masses or other abnormal findings. Targeted color Doppler ultrasound scanning in the upper outer quadrant in the area the patient's palpable lump demonstrates normal fibroglandular breast tissue. There is no sonographic abnormality. Results are provided to the patient at time of visit by the technologist. MM/MM tomosynthesis diagnostic BI IMPRESSION: Left: Negative. Right: No mammographic or sonographic abnormality to account for the patient's right palpable lump in the upper outer quadrant. Recommend clinical evaluation and follow-up. Patient was advised that if the palpable area increased in size or changed at all to return to her doctor who could then schedule a diagnostic examination. ASSESSMENT: BI-RADS BI-RADS 1 - Negative RECOMMENDATION: 1 year F/U This patient's information was entered into a reminder system with a target due date for their next mammogram. Electronically signed by: Merly Shaw DO 05/24/2024 12:32 PM DAMIAN
== END 2024-05-24 11:43 | disposition home or self-care (01) ==
LOC: HO.MAMMO 11:42
PROVIDERS: PCP Internal Medicine; Visit Provider Internal Medicine
DX: N63.11 Unspecified lump in the right breast, upper outer quadrant (principal); Z85.118 Personal history of other malignant neoplasm of bronchus and lung
CPT/HCPCS: 76642; 77062; 77066

== ENCOUNTER → 2024-05-24 11:45 | Outpatient (BNV) | payer MEDICARE, SELFPAY | PROVIDERS: PCP Internal Medicine; Visit Provider Internal Medicine | DX: N63.11 Unspecified lump in the right breast, upper outer quadrant (principal); R92.323 Mammographic fibroglandular density, bilateral breasts | CPT/HCPCS: 76642; 77066; G0279 ==

== ENCOUNTER 2024-06-03 08:07 | Outpatient (AMB) | payer MEDICARE, SELFPAY ==
--- NOTE | 2024-06-03 08:51 | AM.OFFWIN_ITS ---
Intake Vital Signs 06/03/24 08:58 Weight 142 lb BP 120/78 Blood Pressure Location Rt brachial Position Sitting Pulse 60 Pulse Source Pulse Oximeter Temp 97.4 F Temp Source Oral Pulse Oximetry (%) 94 Oxygen Delivery Method Room Air Intake Visit Reasons: EP UTI? Intake Note: Patient here for lower back ache, burning when urinating, frequent urination which started last night. Patient Tobacco Use Status: Former Tobacco user Allergies bupropion [From Wellbutrin] Allergy (Verified 06/03/24 08:59) Chest Pain ciprofloxacin Allergy (Verified 06/03/24 08:59) Chest Pain prednisone Allergy (Verified 06/03/24 08:59) Seizure Do you need a note to return to daycare/school/sports/work: No HPI EP UTI? HPI Details This note is constructed using voice recognition software. While every effort has been made to ensure accuracy, sharepoint net developer errors may have been included. The patient is a 69 year old female who presents to the clinic today with urinary frequency, urgency, and burning, with low back pain for the past couple of days. She notes that she has had multiple urinary tract infections over the past several months. She denies fever, chills. FORMERLY [facility], [facility] Medical History (Updated 05/27/24 @ 00:17 by Hayley Ni MD) History of lung cancer Breast mass, right COPD (chronic obstructive pulmonary disease) Dyslipidemia History of adenomatous polyp of colon Hx of TIA (transient ischemic attack) and stroke History of seizure disorder Achalasia of esophagus Osteoporosis HTN (hypertension) KRISTEN on CPAP Asthma-COPD overlap syndrome GERD (gastroesophageal reflux disease) Surgical History S/P cardiac catheterization S/P partial lobectomy of lung H/O wrist surgery History of cholecystectomy Family History Mother Small cell lung cancer Father Stomach cancer Brother Diabetes Throat cancer Social History Household Members: Spouse and Children Housing: House Do you presently have visiting nurse or other home services: No Alcohol intake: current Alcohol intake frequency: does not drink Patient Tobacco Use Status: Former Tobacco user Years Smoked: 30 +/- e-Cigarette/Vaping Use: Never Used Advance Directives Date on File: 04/21/22 service: No Current occupational status: retired Cognitive needs: No Hearing needs: No Vision needs: Yes Review of Systems Const All systems reviewed & are unremarkable except as noted in HPI and below Physical Exam Vital Signs: Last Vital Signs Temp 97.4 F 06/03/24 08:58 Pulse 60 06/03/24 08:58 BP 120/78 06/03/24 08:58 Pulse Ox 94 06/03/24 08:58 Oxygen Delivery Method Room Air 06/03/24 08:58 Const General: cooperative, healthy appearing, comfortable, no acute distress and alert Orientation/consciousness: patient oriented x3 Limitations: no limitations Resp Effort & Inspection: normal respiratory effort and able to speak in complete sentences Other: Deferred General: Yes no CVA tenderness Back/Spine/Pelvis Back: no CVA tenderness Skin General skin exam: no rashes or lesions noted, elasticity normal and turgor normal Neuro General: patient oriented x3 Psych Appearance: grossly normal Mental Status: mental status grossly normal Speech and movement: Normal speech and movement present Affect: normal affect Assessment & Plan Assessment & Plan (1) UTI (urinary tract infection): Code(s): N39.0 - Urinary tract infection, site not specified Qualifiers: Urinary tract infection type: acute cystitis Hematuria presence: with out hematuria Qualified Code(s): N30.00 - Acute cystitis without hematuria Plan: Supportive measures encouraged and reviewed. Antibiotic sent to requested pharmacy, advised patient to take antibiotics until completed and not to stop if feeling better, unless the patient has side effects. Urine culture sent to confirm, we will adjust antimicrobials based on results. Advised patient to follow up with primary care provider with worsening or failure to resolve. Plan See above for full details and plan. Orders: Orders Urine Culture Today R30.0 - Dysuria Medications: New nitrofurantoin monohyd/m-cryst 100 mg (Macrobid) must administer with a meal/food 100 mg PO Q12H 5 days 10 caps 0RF Coding Level of Care Code Est Pt Level 3 (48000) Diagnoses Acute cystitis without hematuria N30.00 Urinary tract infection type: acute cystitis Hematuria presence: without hematuria
[2024-06-03 08:58] VITALS: BP 120/78; PULSE 60; TEMP 36.3; O2SAT 94
== END 2024-06-03 09:24 | disposition home or self-care (01) ==
PROVIDERS: PCP Internal Medicine; Visit Provider Registered Nurse
DX: N30.00 Acute cystitis without hematuria (principal); Z13.9 Encounter for screening, unspecified

== ENCOUNTER 2024-06-03 08:07 | Outpatient (REF) | payer MEDICARE, SELFPAY | END 2024-06-03 08:08 | disposition home or self-care (01) | LOC: HO.LAB 08:07 | PROVIDERS: PCP Internal Medicine | DX: N30.00 Acute cystitis without hematuria (principal); R30.0 Dysuria | CPT/HCPCS: 81003; 87086; 87088; 87186; 99212 ==

== ENCOUNTER 2024-06-17 12:50 | Outpatient (AMB) | payer MEDICARE, SELFPAY ==
[2024-06-17 13:06] VITALS: BP 110/60; PULSE 73; BMI 22.8
--- NOTE | 2024-06-17 13:06 | MHC.OFFVIS ---
Vital Signs 06/17/24 13:06 Height 5 ft 6 in Weight 141 lb 1.533 oz BMI 22.8 BP 110/60 Blood Pressure Location Lt brachial Position Sitting Pulse 73 Pulse Source Monitor Intake Visit Reasons: 6 mth f/up Intake Note: 6 mth f/up/ pt state that a few nights ago she had some palpitation with chest pain and tingling of the right arm, and pt is having chest pain today. Information Security Engineer Required: No Accompanied by: Significant Other Allergies bupropion [From Wellbutrin] Allergy (Verified 06/03/24 08:59) Chest Pain ciprofloxacin Allergy (Verified 06/03/24 08:59) Chest Pain prednisone Allergy (Verified 06/03/24 08:59) Seizure Medication List - Last Reconciled 06/17/24 by Sumeet Trevino MD albuterol sulfate 90 mcg/actuation 2 puffs inhalation Q4H PRN atorvastatin 40 mg PO BEDTIME budesonide 0.5 mg (2 mL) inhalation DAILY 30 days diltiazem HCl ER 240 mg PO DAILY flecainide 100 mg PO Q12H hydrochlorothiazide 12.5 mg PO BEDTIME lamotrigine 100 mg PO BID levalbuterol HCl 1.25 mg (3 mL) inhalation BID 30 days nebulizers As directed nitrofurantoin monohyd/m-cryst 100 mg (Macrobid) 100 mg PO Q12H 5 days omeprazole 40 mg PO BID@0630,1630 60 days Oxygen Home Use As directed polyethylene glycol 3350 (Miralax) 17 grams PO DAILY 30 days revefenacin (Yupelri) 175 mcg (3 mL) inhalation DAILY rivaroxaban (Xarelto) 20 mg PO QPM sodium chloride 0.65% (Shields Saline) 2 drps intranasal QID PRN 30 days HPI Comments Details: 69-year-old female who is here for follow-up. She has background history of paroxysmal atrial fibrillation. She had chest pains when she had atrial fibrillation. She had precordial T-wave inversions. We tried to a stress test but she collapsed while exercising without any ECG changes and etiology was unclear. After discussion she was taken cardiac catheterization. Cardiac catheterization showed normal filling pressures without any significant coronary disease. After discussion she was started on flecainide. She is returning and denying any palpitations. She is saying she is short of breath and will be seeing her slackman in a week. No fevers or chills. Otherwise stable clinically. 02/22/2023: She returns for follow-up. She is denying any chest discomfort. She has bronchitis and has been coughing. It appears she was receiving azithromycin for suppression of chronic bronchitis. Her recent QT interval was prolonged. She was taken off the azithromycin yesterday. EKG in the office is showing prolonged QT interval of 504 milliseconds. No dizziness or syncope. Otherwise taking medications regularly. 08/30/2023: She returns for follow-up. She has been doing well. No chest pain or shortness of breath. Her is undergoing aortic valve replacement at [facility]. Taking medications regularly and tolerating them well. 01/03/24: She is here for f/u. She has been doing good. She has occasional palpitations and overall has been stable. Taking meds regularly. 06/17/2024: She returns for follow-up. No palpitations and continues to be in sinus rhythm. She has been experiencing some dizziness and lightheadedness. Blood pressure is borderline and I have advised her to stop the hydrochlorothiazide. She experienced central chest pain lasting for 35 minutes few days ago at nighttime. This was self-limiting. Today she had similar central pain on a small area just behind the xiphoid. She said this was at rest. She did not have any exertional symptoms. Her ECG has been abnormal previously and continues to show nonspecific ST-T changes. [facility] Medical History (Updated 06/17/24 @ 13:36 by Sumeet Trevino MD) History of lung cancer Breast mass, right COPD (chronic obstructive pulmonary disease) Dyslipidemia History of adenomatous polyp of colon Hx of TIA (transient ischemic attack) and stroke History of seizure disorder Achalasia of esophagus Osteoporosis HTN (hypertension) KRISTEN on CPAP Asthma-COPD overlap syndrome GERD (gastroesophageal reflux disease) Surgical History S/P cardiac catheterization S/P partial lobectomy of lung H/O wrist surgery History of cholecystectomy Family History Mother Small cell lung cancer Father Stomach cancer Brother Diabetes Throat cancer Social History (Reviewed 01/06/25 @ 13:10 by Abi Amaro [facility] [address]) Household Members: Spouse and Children Housing: House Do you presently have visiting nurse or other home services: No Alcohol intake: current Alcohol intake frequency: does not drink Patient Tobacco Use Status: Former Tobacco user Years Smoked: 30 +/- e-Cigarette/Vaping Use: Never Used Advance Directives Date on File: 04/21/22 service: No Current occupational status: retired Cognitive needs: No Hearing needs: No Vision needs: Yes Review of Systems Const Denies chills, Denies fatigue, Denies fever(s), Denies frequent falls, Denies weakness, Denies weight gain and Denies weight loss ENT Denies dizziness Card Reports chest pain, Reports chest pain at rest, Denies leg edema, Denies lightheadedness, Denies palpitations, Denies dyspnea and Denies dyspnea on exertion Resp Denies cough, Denies dyspnea and Denies dyspnea on exertion GI Denies hematochezia Musc Denies abnormal gait, Denies muscle weakness, Denies numbness, Denies radiating pain into limb and Reports tingling Neuro Denies abnormal gait, Denies dizziness, Denies frequent falls, Denies numbness, Reports tingling and Denies weakness Endo Denies fatigue and Denies palpitations Physical Exam Vital Signs: Last Vital Signs Pulse 73 06/17/24 13:06 BP 110/60 06/17/24 13:06 BMI result Body Mass Index 22.8 GENERAL APPEARANCE: in no acute distress, pleasant. NECK: no carotid bruit, no jugular venous distention. SKIN: Poison ingrid over the arms and legs. HEART: no murmurs, regular rate and rhythm. LUNGS: clear to auscultation bilaterally. ABDOMEN: soft, nontender. EXTREMITIES: no edema. PERIPHERAL PULSES: equal. NEUROLOGIC: No gross deficits, AAO X 3 Office Procedures EKG Details: Sinus rhythm 73 beats per minute, normal axis, ST-T wave changes consider inferior lateral ischemia, QTC 407 milliseconds. [id number], Complete Assessment & Plan Assessment & Plan (1) Chest pain: Code(s): R07.9 - Chest pain, unspecified Category: Medical (2) Chest pain: Code(s): R07.9 - Chest pain, unspecified Category: Medical (3) PAF (paroxysmal atrial fibrillation): Code(s): I48.0 - Paroxysmal atrial fibrillation Category: Medical (4) HTN (hypertension): Code(s): I10 - Essential (primary) hypertension Category: Medical Qualifiers: Hypertension type: primary hypertension Qualified Code(s): I10 - Essential (primary) hypertension Plan Pleasant 69 year female who is here for follow-up. She has background of paroxysmal atrial fibrillation. She is in sinus rhythm and is currently on diltiazem flecainide and Xarelto. She previously had cardiac catheterization which did not show any significant coronary disease. She is complaining of chest pain starting couple of days ago which lasted for 35 minutes in happened again today. I will arrange stress echo for her. She has background of lung cancer and I have advised her to discuss with her cancer specialist also. Thank you for allowing me to participate in the care of your patient. Please feel free to contact me if you have any questions. Orders: Orders CA echo stress exercise Today R07.9 - Chest pain, unspecified Medications: Refilled rivaroxaban (Xarelto) 20 mg PO QPM 90 tabs 4RF R07.9 - Chest pain, unspecified Discontinued hydrochlorothiazide Discontinued Reason: Doctor's Order 12.5 mg PO BEDTIME 90 tabs 3RF Coding Level of Care Code Est Pt Level 4 (02742) Diagnoses Chest pain R07.9 PAF (paroxysmal atrial fibrillation) I48.0 Primary hypertension I10 Hypertension type: primary hypertension CPT Codes EKG - CPT: [id number], Complete ([id number])
== END 2024-06-17 13:39 | disposition home or self-care (01) ==
PROVIDERS: PCP Hospitalist; Visit Provider Internal Medicine Cardiovascular Disease
DX: R07.9 Chest pain, unspecified (principal); I48.0 Paroxysmal atrial fibrillation; I10 Essential (primary) hypertension
CPT/HCPCS: 93010; 99214

== ENCOUNTER → 2024-06-17 12:50 | Outpatient (BNVA) | payer MEDICARE, SELFPAY | PROVIDERS: PCP Hospitalist; Visit Provider Internal Medicine Cardiovascular Disease | DX: I48.0 Paroxysmal atrial fibrillation (principal); I10 Essential (primary) hypertension; R07.9 Chest pain, unspecified; R94.31 Abnormal electrocardiogram [ECG] [EKG] | CPT/HCPCS: 93005; 99212 ==

== ENCOUNTER → 2024-07-08 10:42 | Outpatient (REF) | payer MEDICARE, SELFPAY ==
--- NOTE | 2024-07-08 10:45 | CA_ITS ---
Acquisition Time: 2024-07-08 11:08:21 Total Exercise Time: 00:06:00 Test Indications: CP AFIB Medications: SEE H&P Protocol: MOD JACOB Max HR: 131 BPM 87% of Pred: 150 BPM Max BP: 158/68 mmHG Max Work Load: 3.4 METS Exercise Stress Test with exercise 6 mins of Modified Jacob Protocol, achieving 64% MPHR, with reports of 3/10 mid chest dullache at baseline, resolved during exercise, reports moderate SOB and fatigue requesting to stop, without any arrythmias, with normotensive response to exercise. Without EKG changes at the achieved workload meeting criteria for ischemia. In recovery, breathing returned to baseline. Echo images obtained by tech at rest and post peak exercise. Definity contrast utilized. Test reviewed with Dr. Girard. Referred By: Sumeet Trevino Electronically Signed By: Ryan Albright
--- OUTSIDE RECORDS SUMMARY | 2024-07-08 15:27 | XMS_ITS | Clinical Summary ---
Author Organization [facility] it Address [address] [place] [address] Care Team Providers Care Painter Foreman Name Role Phone Hayley Ni MD Primary Care Provider [phone] Surgical History Surgery Date Site/Laterality Comments OTHER SURGICAL HISTORY PROCEDURE: ME THORACOSCOPY W/LOBECTOMY SINGLE LOBE; COMMENT: right upper lobectomy October 2020 Medical History Medical History Date Comments Tobacco abuse 07/05/2012 DX:Tobacco abuse Unspecified transient cerebr al ischemia 07/05/2012 DX:Unspecified transient cer ebral ischemia Cancer of upper lobe of righ t lung (CMS/HCC) DX:Cancer of upper lobe of r ight lung (HCC) A-fib (CMS/HCC) DX:A-fib (HCC) Respiratory failure (CMS/HCC) 04/02/2022 DX :Respiratory failure (HCC); COMMENT: back to back grand mals Family History Medical History Relation Name Comments Other: throat and neck cancer Brother Parkinson's Disease Father Other: small cell lung Mother Relation Name Status Comments Brother Father Mother Social History Tobacco Use Types Packs/Day Years Used Date Smoking Tobacco: Former Cigarettes Q uit: 06/12/2015 Sex and Gender Information Value Date Recorded Sex Assigned at Not on file Gender Identity Not on file Sexual Orientation Not on file Obstetrics History Last Filed Vital Signs Vital Sign Reading Time Taken Comments Blood Pressure 155/81 11/10/2023 1:01 PM EDT Sit ting L Arm Pulse 72 11/10/2023 1:01 PM EDT Temperature - - Respiratory Rate - - Oxygen Saturation - - Inhaled Oxygen Concentration - - Weight 69.4 kg (153 lb) 11/10/2023 1:01 PM EDT Height 165.1 cm (5' 5 ) 11/10/2023 1:01 PM EDT Body Mass Index 25.46 11/10/2023 1:01 PM EDT Plan of Treatment Health Maintenance Due Date Last Done Comments Breast Cancer Screening 1954 DTaP,Tdap,and Td Vaccines (1 - Tdap) 1973 Zoster Vaccines (1 of 2) 2004 RSV Immunization Patients 60 + Years Old (1 - Risk 60-74 years 1-dose series) 2014 Pneumococcal Vaccine: 65+ Ye ars (1 of 1 - PCV) 2019 Cholesterol Screening (Lipid Panel) 05/15/2022 Colorectal Cancer Screening: Colonoscopy 05/15/2022 Depression Screening 05/15/2022 Falls Risk Assessment 05/15/2022 Hepatitis C Screening 05/15/2022 Osteoporosis Screening (Bone Density Screening) 05/15/2022 Social Influencers of Health Screening 05/15/2022 Hypertension/CHF/CAD Annual BMP Blood Test 05/19/2022 COVID-19 Vaccine (1 - 2023-2 5 season) 2024 Influenza Vaccine (#1) 2024 HIB Vaccines Aged Out No longer eligi ble based on patient's age to complete this topic HPV Vaccines Aged Out No longer eligi ble based on patient's age to complete this topic Hepatitis A Vaccines Aged Out No long er eligible based on patient's age to complete this topic Hepatitis B Vaccines Aged Out No long er eligible based on patient's age to complete this topic IPV Vaccines Aged Out No longer eligi ble based on patient's age to complete this topic MMR Vaccines Aged Out No longer eligi ble based on patient's age to complete this topic Meningococcal ACWY Vaccine Aged Out N o longer eligible based on patient's age to complete this topic RSV Immunization Patients Un phu 20 months Aged Out No longer eligible b ased on patient's age to complete this topic Varicella Vaccines Aged Out No longer eligible based on patient's age to complete this topic Care Teams Painter Foreman Relationship Specialty Start Date End Date Hayley Ni MD [address] [place] [address] PCP - General 11/10/23
--- OUTSIDE RECORDS SUMMARY | 2024-07-08 15:27 | XMS_ITS | Patient Health Record ---
Author Organization [facility] Address [address] [place] [id number] Care Team Providers Care Cabin Service Agent Name Role Phone Abigail Em MD Primary Care Provider Noah Hummel [phone] ALLERGIES Allergen (clinical drug ingredient) Drug/Non Drug Allergy documented on EMR Reaction Allergy Type Onset Date Status Wellbutrin Unknown Drug Allergy Active Ciprofloxacin Unknown Drug Allergy Act ashley seasonal (uncoded) Unknown Allergy A ctive REASON FOR REFERRAL No Information MEDICATIONS Medication SIG (Take, Route, Frequency, Duration) Notes Start Date End Date Status ProAir HFA Active nexium Unknown lamoTRIgine 100 MG 1 tablet Orally twic e a day Active hydroCHLOROthiazide 12.5 MG TAKE 1 TABLE T BY MOUTH DAILY AT BEDTIME Oral for 90 Active Breztri Aerosphere 160-9-4.8 MCG/ACT Inhalation for 30 Active Flecainide Acetate 100 MG Oral for 90 Active Xarelto 20 MG Oral for 30 Acti ve Nebulizer - as directed 12/15/2022 Activ e Montelukast Sodium 10 MG TAKE 1 TABLET B Y MOUTH EVERY DAY AT BEDTIME Oral for 30 Active Omeprazole 40 MG 1 Oral BID Ac tive IMMUNIZATIONS Vaccine Route Administration Date Status Comme nts Influenza Unknown 03/12/2019 Administered Influenza Unknown 03/12/2021 Administered Influenza Unknown 03/01/2022 Administered SOCIAL HISTORY Tobacco Use: Social History Observation Description Date Details (start date - stop date) Former Smoker NA - NA Sex Assigned At : Social History Observation Description Sex Assigned At Unknown Tobacco Use/Smoking Question Answer Notes Patient is a former smoker When did you stop smoking? 4 years ago How long has it been since you last smoked? 1-5 years Alcohol Screen Question Answer Notes Did you have a drink containing alcohol in the p ast year? No Points 0 Interpretation Negative PROBLEMS Problem Type ICD Code Onset Dates Problem Status W/U Status Risk SNOMED Code Notes Problem Encounter for screening for malignant neoplasm of colon (Z12.11) Active confirmed 982259681 Problem History of adenomatous polyp of colon (Z86.010) Active confirmed 442334222 Problem Nausea with vomiting, unspecified (R11.2) Active confirmed Nausea a nd vomiting (09903899) Problem Gastroesophageal reflux disease without esophagitis (K21.9) Active confirmed 273257695 Problem Dysphagia, unspecified type (R13.10) Active confirmed 91184768 Problem Acute diarrhea (R19.7) Active confirmed Acute diarrhea (095032079) PLAN OF TREATMENT Pending Test Test Name Order Date CELIAC PANEL #10 04/20/2012 ENDOMYSIAL IGA 04/20/2012 TRANSGLUTAMINASE AB IGA 04/20/2012 TRANSGLUTAMINASE AB IGG 04/20/2012 XR BARIUM SWALLOW-ESOPHAGUS 11/19/2015 US ABD 04/20/2012 Future Test Test Name Order Date COLONOSCOPY 10/01/2014 Insurance Providers Payer Name Payer Address Payer Phone Subscriber Number Group Number Insured Name Patient Relationship to Insured Coverage Start Date Coverage End Date MEDICARE OF [place] [address] [place] [address] [phone] [id number] Self - patient is the insured MEDEX ATTN CLAIMS [address] [place] [address] [id number] Self - patient is the insured MEDICAL (GENERAL) HISTORY Medical History History ICD Code GERD-EGD in 2011 was neg for sig. esophagitis nor Uribe's--small to moderate-sized HH Right sided weakness tempora ry-in 08/2011-JOSEPHINE was negative by her report, and the remainder of her neurologic workup was also negative by her description.-recently had more sx. raising a ? of MS or migraines Screening colonoscopy 005 was negative; tubular adenoma removed in 12/2014--noted to have some sigmoid diverticulosis and internal hemorrhoids Denies DE,CVA,DM,renal disease Hyperlipidemia Anxiety since 08/2011 IBS-EGD with normal duodenal biopsies in 2012 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 during the day; going for a sleep study as of the 11/2019 OV to check for sleep apnea Pneumonia in 09/2015--at [facility] Hypertension Grand mal seizure 02/2020 at [facility] Atrial fibrillation with a l oop recorder since 2019--still in as of the 11/2021 OV Right Lung cancer with surgery as below- Adenocarcinoma--no XRT/chemo Surgical History Surgery Date(Month/Year) Cosmetic surgery- neck lift Ganglion cyst removed from left wrist [facility] 2017 Resection of upper 1/2 of right lung for cancer-Dr. Correia 10/21/2020 Hospitalization History Reason Date(Month/Year) COPD 07/2019
--- OUTSIDE RECORDS SUMMARY | 2024-07-08 15:28 | XMS_ITS ---
Author Organization [facility] Address [address] [place] [address] Care Team Providers Care Instructor Pilot Name Role Phone Abigail Em MD Primary Care Provider Noah Hummel [phone] ALLERGIES Allergen (clinical drug ingredient) Drug/Non Drug Allergy documented on EMR Reaction Allergy Type Onset Date Status Wellbutrin Unknown Drug Allergy Active Ciprofloxacin Unknown Drug Allergy Act ashley seasonal (uncoded) Unknown Allergy A ctive REASON FOR VISIT Patient presents today for dysphagia MEDICATIONS Medication SIG (Take, Route, Frequency, Duration) Notes Start Date End Date Status hydroCHLOROthiazide 12.5 MG TAKE 1 TABLE T BY MOUTH DAILY AT BEDTIME Oral for 90 Active Flecainide Acetate 100 MG Oral for 90 Active Xarelto 20 MG Oral for 30 Acti ve Nebulizer - as directed 12/15/2022 Activ e Montelukast Sodium 10 MG TAKE 1 TABLET B Y MOUTH EVERY DAY AT BEDTIME Oral for 30 Active ProAir HFA Active nexium Unknown lamoTRIgine 100 MG 1 tablet Orally twic e a day Active Breztri Aerosphere 160-9-4.8 MCG/ACT Inhalation for 30 Active Omeprazole 40 MG 1 Oral BID Ac tive SOCIAL HISTORY Tobacco Use: Social History Observation [...] ast year? No Points 0 Interpretation Negative VITAL SIGNS BMI 25.34 kg/m2 03/07/2023 Blood pressure systolic 000 mm Hg 03/07/20 23 Blood pressure diastolic 00 mm Hg 023 Height 66 in 03/07/2023 Temperature 97.1 degrees Fahrenheit 03/07/20 23 Weight 157 lbs 03/07/2023 Encounters Encounter Location Date Provider Diagnosis [facility] [address] [place] [address] 03/07/2023 Noah Hargrove Dysphagia, unspecifi ed type R13.10 and Gastroesophageal reflux disease without esophagitis K21.9 ASSESSMENTS Encounter Date Diagnosis Assessment Notes Treatment Notes Treatment Clinical Notes 03/07/2023 Dysphagia, unspecifi ed type (ICD-10 - R13.10) Continue the omeprazole and eat slowly. 03/07/2023 Gastroesophageal ref lux disease without esophagitis (ICD-10 - K21.9) PLAN OF TREATMENT Treatment Notes Assessment Notes Dysphagia, unspecified type Continue the omeprazole and eat slowly. Next Appt Details Follow Up: prn, Reason: Progress Notes * Examination Category Sub-Category Detail Notes General Examination GENERAL APPEARANCE: pleasant , well nourished, well developed, in no acute distress EYES: sclera non-icteric NECK/THYROID: no cervical lymphade nopathy, neck supple HEART: S1, S2 normal LUNGS: clear to auscultatio n bilaterally ABDOMEN: normal bowel sounds, no guarding or rigidity, no hepatosplenomegaly, no masses palpable, soft, nontender, nondistended. NEUROLOGIC: alert and oriented SKIN: nonjaundiced, no spi phu angiomata. EXTREMITIES: no edema ORAL CAVITY: mucosa moist
== END ==
LOC: HO.CARD 10:42
PROVIDERS: PCP Internal Medicine; Visit Provider Internal Medicine Cardiovascular Disease
DX: R07.9 Chest pain, unspecified (principal)
CPT/HCPCS: 93350; Q9957

== ENCOUNTER 2024-07-22 14:32 | Outpatient (REF) | payer MEDICARE, SELFPAY ==
--- OUTSIDE RECORDS SUMMARY | 2024-07-22 16:32 | XMS_ITS | Clinical Summary ---
Author Organization [facility] it Address [address] [place] [address] Care Team Providers Care Housing Counselor Name Role Phone Hayley Ni MD Primary Care Provider Surgical History Surgery Date Site/Laterality Comments OTHER SURGICAL HISTORY PROCEDURE: [place] THORACOSCOPY W/LOBECTOMY SINGLE LOBE; COMMENT: right upper lobectomy October 2020 Medical History Medical History Date Comments Tobacco abuse 07/05/2012 DX:Tobacco abuse Unspecified transient cerebr al ischemia 07/05/2012 DX:Unspecified transient cer ebral ischemia Cancer of upper lobe of righ t lung (CMS/HCC) DX:Cancer of upper lobe of r ight lung ([facility]) A-fib (CMS/HCC) DX:A-fib (HCC) Respiratory failure (CMS/HCC) 04/02/2022 DX :Respiratory failure ([facility]); COMMENT: back to back grand mals Family History Medical History Relation Name Comments Other: throat and neck cancer Brother Parkinson's Disease Father Other: small cell lung Mother Relation Name Status Comments Brother Father Mother Social History Tobacco Use Types Packs/Day Years Used Date Smoking Tobacco: Former Cigarettes Q uit: 06/12/2015 Comments Unknown Sex and Gender Information Value Date Recorded Sex Assigned at Not on file Legal Sex Female 3:06 AM EST Gender Identity Not on file Sexual Orientation [...] 1954 DTaP,Tdap,and Td Vaccines (1 - Tdap) 1961 Pneumococcal Vaccine: 50+ Ye ars (1 of 1 - PCV) 2004 Zoster Vaccines (1 of 2) 2004 RSV Immunization Patients 60 + Years Old (1 - Risk 60-74 years 1-dose series) 2014 Cholesterol Screening (Lipid Panel) 05/15/2022 Colorectal Cancer [...] patient's age to complete this topic Meningococcal B Vacine Aged Out No lo nger eligible based on patient's age to complete this topic RSV Immunization Patients Un phu 20 months Aged Out No longer eligible b ased on patient's age to complete this topic Varicella Vaccines Aged Out No longer eligible based on patient's age to complete this topic Care Teams Housing Counselor Relationship Specialty Start Date End Date Hayley Ni MD [address] [place] [address] PCP - General 11/10/23
[2024-07-23 13:07] LABS: Adenovirus PCR Not Detected (Not Detect.); Bordetella parapertussis PCR Not Detected (Not Detect.); Bordetella pertussis PCR Not Detected (Not Detect.); Chlamydia pneumoniae PCR Not Detected (Not Detect.); Coronavirus 229E PCR Not Detected (Not Detect.); Coronavirus HKU1 PCR Not Detected (Not Detect.); Coronavirus NL63 PCR Not Detected (Not Detect.); Coronavirus OC43 PCR Not Detected (Not Detect.); Human metapneumovirus PCR Not Detected (Not Detect.); Influenza A PCR Not Detected (Not Detect.); Influenza B PCR Not Detected (Not Detect.); Mycoplasma pneumoniae PCR Not Detected (Not Detect.); Parainfluenza 1 PCR Detected (Not Detect.); Parainfluenza 2 PCR Not Detected (Not Detect.); Parainfluenza 3 PCR Not Detected (Not Detect.); Parainfluenza 4 PCR Not Detected (Not Detect.); RSV PCR Not Detected (Not Detect.); Rhino/Enterovirus PCR Not Detected (Not Detect.)
[2024-07-23 13:32] LABS: SARS-CoV-2 PCR Not Detected (Not Detect.)
== END 2024-07-22 14:33 | disposition home or self-care (01) ==
LOC: HO.LAB 14:32
PROVIDERS: PCP Internal Medicine; Visit Provider Physician Assistant
DX: J06.9 Acute upper respiratory infection, unspecified (principal)
CPT/HCPCS: 87633; 99212

== ENCOUNTER 2024-07-22 14:32 | Outpatient (AMB) | payer MEDICARE, SELFPAY ==
--- NOTE | 2024-07-22 15:29 | MHC.OFFWIV ---
Intake Vital Signs 07/22/24 15:39 Weight 143 lb BP 130/80 Blood Pressure Location Lt brachial Pulse 88 Pulse Source Pulse Oximeter Temp 98.1 F Temp Source Oral Pulse Oximetry (%) 98 Oxygen Delivery Method Nasal Cannula Oxygen Flow Rate 2.5 Intake Visit Reasons: EP Upper respiratory [phone] (car) Intake Note: Patient here for difficulty breathing and cought that has been present for about 4-5 days she usually uses Oxygen at night but has been having to use it 24/ Patient Tobacco Use Status: Former Tobacco user Allergies bupropion [From Wellbutrin] Allergy (Verified 07/22/24 15:30) Chest Pain ciprofloxacin Allergy (Verified 07/22/24 15:30) Chest Pain prednisone Allergy (Verified 07/22/24 15:30) Seizure Do you need a note to return to daycare/school/sports/work: No HPI HPI Comments History of Present Illness Details History - The patient is a 69-year-old female with pmhx of COPD on 2.5L oxygen at night presenting with recent respiratory symptoms and increased reliance on supplemental oxygen, now using it 02/01. - She has a history of emphysema and requires oxygen continuously now, whereas previously, it was used only at night. - The patient complains of wheezing and has been using her nebulizer and albuterol inhaler more than usual. - Her daughter, recently treated for pneumonia, had negative tests for COVID-19 and RSV, though the patient had potential exposure. - Despite no reported fever, she has been experiencing wheezing, worse at night. She recently used a steroid taper as advised during a previous consultation. - Her tub tender gave her a steroid taper to have on hand at home, she started taking it 2 days ago. Physical Exam General: Cooperative, healthy appearing, comfortable and no acute distress Orientation/consciousness: Patient oriented x3 Limitations: No limitations Head: Normal to inspection Ears: Hearing grossly normal bilaterally, external ears normal and TM's normal bilaterally Nose: Normal external nose present, Normal nares present and No nasal discharge present Face and sinus: NC in place. Normal facial exam and Yes sinuses nontender Mouth: Normal oral and palatal mucosa present and moist mucous membranes Throat: Yes tonsils normal, Yes uvula midline. Posterior oropharynx erythema Eyes: Appearance normal, both eyes and all related structures Neck: Normal visual inspection Respiratory: Clear but dim to auscultation bilaterally. Normal respiratory effort, able to speak in complete sentences, Actively coughing, no respiratory distress, not tachypneic, no tripod positioning and no use of accessory muscles. Cardiovascular: Regular rate and rhythm. Normal S1 and S2 Skin: No rashes or lesions noted Neuro: Patient oriented x3 Extremities: Normal to inspection and Yes no clubbing, cyanosis or edema PFSH Medical History (Updated 07/22/24 @ 15:52 by Cecy Renner PA-C) History of lung cancer Breast mass, right COPD (chronic obstructive pulmonary disease) Dyslipidemia History of adenomatous polyp of colon Hx of TIA (transient ischemic attack) and stroke History of seizure disorder Achalasia of esophagus Osteoporosis HTN (hypertension) KRISTEN on CPAP Asthma-COPD overlap syndrome GERD (gastroesophageal reflux disease) Surgical History S/P cardiac catheterization S/P partial lobectomy of lung H/O wrist surgery History of cholecystectomy Family History Mother Small cell lung cancer Father Stomach cancer Brother Diabetes Throat cancer Social History Household Members: Spouse and Children Housing: House Do you presently have visiting nurse or other home services: No Alcohol intake: current Alcohol intake frequency: does not drink Patient Tobacco Use Status: Former Tobacco user Years Smoked: 30 +/- e-Cigarette/Vaping Use: Never Used Advance Directives Date on File: 04/21/22 service: No Current occupational status: retired Cognitive needs: No Hearing needs: No Vision needs: Yes Review of Systems Const All systems reviewed & are unremarkable except as noted in HPI and below Physical Exam Vital Signs: Last Vital Signs Temp 98.1 F 07/22/24 15:39 Pulse 88 07/22/24 15:39 BP 130/80 07/22/24 15:39 Pulse Ox 98 07/22/24 15:39 Oxygen Delivery Method Nasal Cannula 07/22/24 15:39 Assessment & Plan Assessment & Plan (1) Lower respiratory infection (e.g., bronchitis, pneumonia, pneumonitis, pulmonitis): Code(s): J22 - Unspecified acute lower respiratory infection Plan: Expanded viral testing, including panel for COVID-19, influenza, RSV, and Mycoplasma pneumonia, is being conducted to assess the current respiratory symptoms. The patient is instructed to continue the nebulizer treatments and increase the usage to include proactive nebulizer sessions TID. She is to maintain the use of an albuterol inhaler for symptom management. A round of oral steroids was commenced by the patient as recommended by her tub tender, and Tessalon Perles with Benadryl is prescribed to alleviate nighttime coughing/mucus. Continuous monitoring of oxygen saturation is important, and adjustments to treatment will follow based on further testing results. Patient was informed and verbally consented to the use of an ambient scribe for clinic note documentation during this visit Orders: Orders Resp Pathogen Panel - [facility] Today J06.9 - Acute upper respiratory infection, unspecified Medications: New benzonatate 200 mg PO TID PRN 14 caps 0RF cough Coding Level of Care Code Est Pt Level 3 (22343) Diagnoses Lower respiratory infection (e.g., bronchitis, pneumonia, pneumonitis, pulmonitis) J22
[2024-07-22 15:39] VITALS: BP 130/80; PULSE 88; TEMP 36.7; O2SAT 98
== END 2024-07-22 16:09 | disposition home or self-care (01) ==
PROVIDERS: PCP Internal Medicine; Visit Provider Physician Assistant
DX: J22 Unspecified acute lower respiratory infection (principal)

== ENCOUNTER 2024-07-27 09:44 | Emergency (ER) | payer MEDICARE, SELFPAY ==
--- NOTE | ~2024-07-27 | XR_ITS ---
CLINICAL HISTORY: cough 2 view chest x-ray. Comparison: 03/05/2024 Findings: The lungs are adequately expanded. Chronic scarring and/or atelectasis of the left base. No focal consolidation. No effusion or pneumothorax. Chronic blunting of the right costophrenic margin. Cardiac and mediastinal contours are within normal limits. No acute osseous abnormality Impression: No acute process. Chronic changes as detailed. This document has been electronically signed by: Armin Tinsley MD on 07/27/2024 11:38:46
[2024-07-27 10:03] VITALS: BP 135/88; PULSE 82; RESP 18; TEMP 36.6; O2SAT 98; BMI 23.1
[2024-07-27 10:29] LABS: MANUAL DIFF FLAG NO
[2024-07-27 10:32] LABS: Basophils Percent Auto 0.1 % (0-2); Eosinophils Percent Auto 0.2 % (0-4); Hematocrit 39.1 % (37.0-47.0); Hemoglobin 13.1 g/dl (12.0-16.0); Imm Gran Abs Auto 0.04 X10*3/uL (0.00-0.03); Imm Gran Pct Auto 0.4 % (0.0-0.4); Lymphocytes Absolute Auto 1.1 X10*3/uL (1.2-4.9); Lymphocytes Percent Auto 12.4 % (20-40); Mean Corpuscular HGB Conc 33.5 g/dl (31.0-35.0); Mean Corpuscular Volume 89.7 fL (80.0-98.0); Mean Platelet Volume 9.5 fL (9.4-12.3); Monocytes Absolute Auto 0.6 X10*3/uL (0.1-1.2); Monocytes Percent Auto 6.2 % (2-11); Neutrophils Absolute Auto 7.3 x10*3/uL (2.0-8.3); Neutrophils Percent Auto 80.7 % (45-73); Platelet Count 246 X10*3/uL (160-400); Red Blood Count 4.36 X10*6/uL (4.20-5.50); Red Cell Distribution Width 12.8 % (11.0-16.0)
[2024-07-27 10:33] LABS: Venous Blood Gas Refer to POC result
[2024-07-27 10:33] LABS: VBG Base Excess 13.6 mmol/L; VBG HCO3 40 mmol/L (22-26); VBG pCO2 58 mmHg; VBG pH 7.44 (7.32-7.43); VBG pO2 40 mmHg
[2024-07-27 10:36] LABS: Appearance Urine Clear; Color Urine Dark Yellow; Glucose Urine UA Negative (Negative); Leukocyte Esterase Urine Trace (Negative); Nitrite Urine Negative (Negative); Specific Gravity - Urine 1.025 (1.005-1.025); UMIC TRIGGER UACC YES; Urine Blood Negative (Negative); Urine Ketones Trace mg/dL (Negative); Urine Protein 30 (1+) mg/dL (Neg-Trace)
[2024-07-27 10:43] LABS: Alanine Aminotransferase 12 U/L (0-31); Albumin Level 3.8 g/dL (3.5-5.0); Alkaline Phosphatase 141 U/L (39-117); Anion Gap 14 (12-20); Aspartate Amino Transferase 15 U/L (5-31); Bilirubin Total 0.5 mg/dL (0.0-1.0); Blood Urea Nitrogen 13 mg/dL (9-16); Calcium 9.5 mg/dL (8.4-10.2); Carbon Dioxide 32 mmol/L (22-29); Chloride 101 mmol/L (96-108); Creatinine Clr Calc Pharmacy 76.5; Estimated Glomerular Filt Rate > 60; Glucose Random 92 mg/dL (60-115); Magnesium 1.9 mg/dL (1.6-2.6); Potassium 3.6 mmol/L (3.3-5.1); Sodium 143 mmol/L (135-145); Total Protein 7.3 g/dL (6.5-8.0)
[2024-07-27 10:51] LABS: Bacteria Urine None Seen (None Seen); Hyaline Casts Urine 0-2 /LPF (0-2); RBC Urine 0-2 /HPF (0-2); WBC Urine 0-5 /HPF (0-5)
[2024-07-27 11:21] LABS: Influenza A PCR NEGATIVE (Negative); Influenza B PCR NEGATIVE (Negative); Resp Syncy Virus RNA Qual PCR NEGATIVE (Negative); SARS COV2 PCR INHOUSE NEGATIVE (Negative)
[2024-07-27 11:24] VITALS: O2SAT 98
--- NOTE | 2024-07-27 11:24 | PC.NURSE ---
PT 98 % on 2.5 NC as needed and night pt's baseline.
[2024-07-27 11:26] VITALS: BP 143/91; PULSE 88; RESP 16; TEMP 36.4; O2SAT 99
--- NOTE | 2024-07-27 11:34 | ECG_ITS ---
Test Reason : DYSPNEA Blood Pressure : */* mmHG Vent. Rate : 77 BPM Atrial Rate : 77 BPM P-R Int : 142 ms QRS Dur : 80 ms QT Int : 356 ms P-R-T Axes : 80 72 64 degrees QTcB Int : 402 ms Normal sinus rhythm ST & T wave abnormality, consider inferior ischemia ST & T wave abnormality, consider anterolateral ischemia Abnormal ECG When compared with ECG of 05-Mar-2024 12:40, No significant change was found Referred By: Tiny Loyola Electronically Signed By: FREDERIC SPRINGER MD
--- OUTSIDE RECORDS SUMMARY | 2024-07-27 11:41 | XMS_ITS ---
Author Organization [facility] Address [address] [place] [address] Care Team Providers Care Joss House Keeper Name Role Phone Abigail Em MD Primary Care Provider Noah Hummel [phone] ALLERGIES Allergen (clinical drug ingredient) Drug/Non Drug [...] 03/07/2023 Encounters Encounter Location Date Provider Diagnosis [facility] [address] [place] [address] 03/07/2023 Noah Hargrove Dysphagia, unspecifi ed type [...]
--- OUTSIDE RECORDS SUMMARY | 2024-07-27 11:41 | XMS_ITS | Clinical Summary ---
Author Organization [facility] it Address [address] [place] [address] Care Team Providers Care Senior Business Intelligence Analyst Name Role Phone Hayley Ni MD Primary Care Provider Surgical History Surgery Date Site/Laterality Comments OTHER SURGICAL HISTORY PROCEDURE: [place] THORACOSCOPY W/LOBECTOMY SINGLE LOBE; COMMENT: right upper lobectomy October 2020 Medical History Medical History Date Comments Tobacco abuse 07/05/2012 DX:Tobacco abuse Unspecified transient cerebr al ischemia 07/05/2012 DX:Unspecified transient cer ebral ischemia Cancer of upper lobe of righ t lung (CMS/HCC) DX:Cancer of upper lobe of r ight lung ([facility]) A-fib (CMS/HCC) DX:A-fib (HCC) Respiratory failure (CMS/HCC) 04/02/2022 DX :Respiratory failure ([facility]); COMMENT: back to back grand mals Family [...] DTaP,Tdap,and Td Vaccines (1 - Tdap) 1973 Pneumococcal Vaccine: 50+ Ye ars (1 of [...] age to complete this topic Care Teams Senior Business Intelligence Analyst Relationship Specialty Start Date End Date Hayley Ni MD [address] [place] [address] PCP - General 11/10/23
--- OUTSIDE RECORDS SUMMARY | 2024-07-27 11:41 | XMS_ITS | Patient Health Record ---
Author Organization [facility] Address [address] [place] [address] Care Team Providers Care Saw Filer Name Role Phone Abigail Em MD Primary Care Provider Noah Hummel [phone] ALLERGIES Allergen (clinical drug ingredient) Drug/Non Drug [...] malignant neoplasm of colon (Z12.11) Active confirmed 905029323 Problem History of adenomatous polyp of colon (Z86.010) Active confirmed 374985477 Problem Nausea with vomiting, unspecified (R11.2) Active confirmed Nausea a nd vomiting (03673859) Problem Gastroesophageal reflux disease without esophagitis (K21.9) Active confirmed [id number] Problem Dysphagia, unspecified type (R13.10) Active confirmed 27132245 Problem Acute diarrhea (R19.7) Active confirmed Acute diarrhea (281310311) PLAN OF TREATMENT Pending Test Test Name [...] Date MEDICARE OF [place] [address] [place] [address] [phone] [id number] VJ MCGUIRE Self - patient is the insured [employer] CLAIMS [address] [place] [address] [id number] VJ MCGUIRE Self - patient is [...] some sigmoid diverticulosis and internal hemorrhoids Denies [place],CVA,DM,renal disease Hyperlipidemia Anxiety since 08/2011 IBS-EGD with normal duodenal biopsies in 2012 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 during the day; going for a sleep study as of the 11/2019 OV to check for sleep apnea Pneumonia in 09/2015--at [facility] Hypertension Grand mal seizure 02/2020 at [facility] Atrial fibrillation with a l oop recorder [...]
--- NOTE | 2024-07-27 11:45 | ED.URI ---
HPI - URI/Sore Throat General Chief Complaint: Upper Respiratory Symptoms Stated Complaint: +Flu Time Seen by Provider: 07/27/24 11:21 Source: patient, family and old records reviewed Mode of arrival: ambulatory Limitations: no limitations History of Present Illness ED Provider: MILTON MAI Narrative: 69 yo female with PMH of COPD O2 at night only 2.5L, asthma, HTN, lung cancer, KRISTEN on CPAP, PAF on xarelto, seizure disorder compliant with her medicationsm, HLD here with c/o being sick since Monday then was diagnosed with Flu A on Monday. She was out of the window for tamiflu. She comes in as she is now needing her O2 all the time. She has only been taking tessalon. She notes she is now running 85% on RA during the day and has to use her O2 all the time. She has been able to keep her sats to 95% with the O2. She doesn't feel well. She has significant sputum. She is taking nebs without relief. MD elicited complaint: other (viral syndrome, dyspnea) Pertinent past history: COPD and asthma Onset (ago): week(s) (1) Consistency: progressively worsening Severity: moderate Description of mucous: yellow Able to tolerate fluids by mouth: Yes Exacerbating factors: exertion Relieving factors: nothing Context: sick contacts Associated symptoms: chills, myalgias, cough and shortness of breath Treatments prior to arrival: other Related Data Home Medications ?Medication ?Instructions ?Recorded ?Confirmed albuterol sulfate 90 mcg/actuation 2 puff inhalation Q4H PRN 04/02/22 06/17/24 aerosol inhaler Shortness Of Breath Oxygen Home Use 02/21/23 06/17/24 nebulizers 02/21/23 06/17/24 Previous Rx's ?Medication ?Instructions ?Recorded lamotrigine 100 mg tablet 100 mg PO BID #60 tabs 04/04/22 flecainide 100 mg tablet 100 mg PO Q12H #180 tabs 09/14/23 diltiazem HCl 240 mg capsule,24 240 mg PO DAILY #90 caps 12/25/23 hr,extended release atorvastatin 40 mg tablet 40 mg PO BEDTIME #90 tabs 03/25/24 budesonide 0.5 mg/2 mL suspension 0.5 mg (2 mL) inhalation DAILY 30 11/25/24 for nebulization days #60 mL levalbuterol HCl 1.25 mg/3 mL 1.25 mg (3 mL) inhalation BID 30 05/06/24 solution for nebulization days #180 mL omeprazole 40 mg capsule,delayed 40 mg PO BID@0630,1630 60 days 06/24/24 release #120 caps rivaroxaban 20 mg tablet (Xarelto) 20 mg PO QPM #90 tabs 06/27/24 benzonatate 200 mg capsule 200 mg PO TID PRN cough #14 caps 07/22/24 doxycycline hyclate 100 mg capsule 100 mg PO BID 7 days #14 caps 07/27/24 prednisone 20 mg tablet 40 mg (2 x 20 mg) PO DAILY 5 days 07/27/24 #10 tabs Allergies Allergy/AdvReac Type Severity Reaction Status Date / Time bupropion [From Wellbutrin] Allergy Chest Pain Verified 07/27/24 10:09 ciprofloxacin Allergy Chest Pain Verified 07/27/24 10:09 IV/IM prednisone Allergy Seizure Uncoded 07/27/24 10:10 Review of Systems Review of Systems: Constitutional : No Fever, pos Chills ENT/Mouth : No Hoarseness, No sore throat, No Rhinorrhea Eyes: No Redness, No Discharge, No Vision Changes Cardiovascular : No Chest Pain, positive SOB, positive Dyspnea on Exertion, No Edema Respiratory : positive Cough, pos Sputum, positive Wheezing, Gastrointestinal : No Nausea, No Vomiting, No Diarrhea, No abdominal Pain Genitourinary : No Dysuria, No Hematuria Musculoskeletal : No joint pain, No Myalgias Skin : No rash Neuro : No Weakness, No Numbness, No Headache All other systems reviewed and are negative PMFSH Past Medical History Attestation statement: The following information was validated with the patient. Source: old records reviewed Medical History History of lung cancer Breast mass, right COPD (chronic obstructive pulmonary disease) Dyslipidemia History of adenomatous polyp of colon Hx of TIA (transient ischemic attack) and stroke History of seizure disorder Achalasia of esophagus Osteoporosis HTN (hypertension) KRISTEN on CPAP Asthma-COPD overlap syndrome GERD (gastroesophageal reflux disease) Surgical History S/P cardiac catheterization S/P partial lobectomy of lung H/O wrist surgery History of cholecystectomy Family History Family History Mother Small cell lung cancer Father Stomach cancer Brother Diabetes Throat cancer Social History Social History Household Members: Spouse and Children Housing: House Do you presently have visiting nurse or other home services: No Alcohol intake: current Alcohol intake frequency: does not drink Patient Tobacco Use Status: Former Tobacco user Years Smoked: 30 +/- Smoked in Last 30 Days: No e-Cigarette/Vaping Use: Never Used Use of substances other than those prescribed or required for medical reasons: Yes Substance Use Type: Marijuana Substance Use Type Other:: Prescribed Advance Directives: Yes Advance Directives on File: Yes Advance Directives Date on File: 04/21/22 Do you have a plan to hurt others: No Plan service: No Current occupational status: retired Cognitive needs: No Hearing needs: No Vision needs: Yes Physical Exam Vital Signs: Vital Signs: Last Vital Signs Temp 97.5 F 07/27/24 11:26 Pulse 83 07/27/24 12:06 Resp 24 H 07/27/24 12:06 BP 143/91 H 07/27/24 11:26 Pulse Ox 99 07/27/24 11:26 O2 Del Method Room Air 07/27/24 11:26 O2 Flow Rate 2.5 07/27/24 11:26 Oxygen Flow Rate 2 07/27/24 11:24 BMI result Body Mass Index 23.1 Appearance: Alert. Oriented X3. No acute distress. Eyes: Pupils equal, round and reactive to light. ENT: Pharynx normal. Neck: Normal inspection. Neck supple. CVS: Normal heart rate and rhythm. Pulses normal. Respiratory: No respiratory distress. Breath sounds coarse and diminished with mild exp wheezes Abdomen: Soft and non-tender. Skin: Skin warm and dry. Normal skin color. Extremities: No lower extremity edema. Neuro: Oriented X 3. No motor deficit. No sensory deficit. CN2-12 intact Medications Administered Discontinued Medications Generic Name Dose Route Start Last Admin Trade Name Freq PRN Reason Stop Dose Admin Ceftriaxone Sodium 1 gm 07/27/24 11:34 07/27/24 12:26 Ceftriaxone Sodium 1 Gm Vial IVPUSH 07/27/24 11:35 1 gm ONCE ONE Administration Albuterol Sulfate 2.5 mg/ 0 mg 07/27/24 12:06 07/27/24 12:10 Albuterol/Ipratropium 3 ml INHALE 07/27/24 12:07 5 dose ONCE ONE Administration Methylprednisolone Sodium Succinate 60 mg 07/27/24 11:34 07/27/24 12:05 Methylprednisolone Sod Succ 125 Mg/2 Ml Vial IVPUSH 07/27/24 11:35 60 mg ONCE ONE Administration Medical Decision Making Medical Decision Making MDM Narrative: 69 yo female with PMH of COPD O2 at night only 2.5L, asthma, HTN, lung cancer, KRISTEN on CPAP, PAF on xarelto, seizure disorder here with c/o URI, cough, wheezing, sputum production increased O2 from baseline - at this time will obtain labs, start on ceftriaxone/solumedrol, neb therapy. She is not labored or in resp distress. Possible COPD exacerbation after viral illness Differential Diagnosis Differential Diagnoses: The differential diagnosis associated with the presentation includes COPD exacerbation, FLU, viral pneumonia, hypoxia Admission/Observation Consideration of admission/observation: Escalation of care including admission/observation considered looks better and feels better, tolerating PO, 100% on 2L she is suitable for outpatient management and she has O2 at home she is able to take prednisone at home I will start her on steroids and doxycylcine for COPD Lab Data [facility] Lab Attestation statement: I reviewed the patient's lab results. 07/27/24 10:25 07/27/24 10:25 Labs: Lab Results 07/27/24 07/27/24 07/27/24 Range/Units 10:25 10:27 10:30 WBC 9.0 (4.8-10.8) X10*3/uL RBC 4.36 (4.20-5.50) X10*6/uL Hgb 13.1 (12.0-16.0) g/dl Hct 39.1 (37.0-47.0) % MCV 89.7 (80.0-98.0) fL MCH 30.0 (27.0-33.0) pg MCHC 33.5 (31.0-35.0) g/dl RDW 12.8 (11.0-16.0) % Plt Count 246 (160-400) X10*3/uL MPV 9.5 (9.4-12.3) fL Immature Gran % (Auto) 0.4 (0.0-0.4) % Neut % (Auto) 80.7 H (45-73) % Lymph % (Auto) 12.4 L (20-40) % [place] % (Auto) 6.2 (2-11) % Eos % (Auto) 0.2 (0-4) % Baso % (Auto) 0.1 (0-2) % Lymph # (Auto) 1.1 L (1.2-4.9) X10*3/uL [place] # (Auto) 0.6 (0.1-1.2) X10*3/uL Eos # (Auto) 0.0 (0.0-0.4) X10*3/uL Baso # (Auto) 0.0 (0.0-0.2) X10*3/uL Abs Immat Gran (auto) 0.04 H (0.00-0.03) X10*3/uL Absolute Neuts (auto) 7.3 (2.0-8.3) x10*3/uL Absolute Nucleated RBC 0.000 (0.0-0.012) X10*3/uL Nucleated RBC % (auto) 0.0 (0.0-0.2) /100WBC VBG pH 7.44 H (7.32-7.43) VBG pCO2 58 mmHg VBG pO2 40 mmHg VBG HCO3 40 H (22-26) mmol/L VBG O2 Saturation 66.0 % VBG Base Excess 13.6 mmol/L Sodium 143 (135-145) mmol/L Potassium 3.6 (3.3-5.1) mmol/L Chloride 101 (96-108) mmol/L Carbon Dioxide 32 H (22-29) mmol/L Anion Gap 14 (12-20) BUN 13 (9-16) mg/dL Creatinine 0.64 (0.5-1.4) mg/dL Estim Creat Clear Calc 76.5 Estimated GFR > 60 Random Glucose 92 (60-115) mg/dL Lactic Acid (0.5-2.0) mmol/L Calcium 9.5 (8.4-10.2) mg/dL Magnesium 1.9 (1.6-2.6) mg/dL Total Bilirubin 0.5 (0.0-1.0) mg/dL AST 15 (5-31) U/L ALT 12 (0-31) U/L Alkaline Phosphatase 141 H (39-117) U/L Troponin I High Sens 2.7 (<3.5-17.0) ng/L B-Natriuretic Peptide 22 (<100) pg/mL Total Protein 7.3 (6.5-8.0) g/dL Albumin 3.8 (3.5-5.0) g/dL Urine Color Dark Yellow Urine Appearance Clear Urine pH 6.0 (5.0-9.0) Ur Specific [place] 1.025 (1.005-1.025) Urine Protein 30 (1+) H (Neg-Trace) mg/dL Urine Glucose (UA) Negative (Negative) mg/dL Urine Ketones Trace (Negative) mg/dL Urine Blood Negative (Negative) Urine Nitrite Negative (Negative) Ur Leukocyte Esterase Trace H (Negative) Urine RBC 0-2 (0-2) /HPF Urine WBC 0-5 (0-5) /HPF Ur Squamous Epith Cells 3-5 (0-2) /HPF Urine Bacteria None Seen (None Seen) Hyaline Casts 0-2 (0-2) /LPF Influenza Type A (PCR) NEGATIVE (Negative) Influenza Type B (PCR) NEGATIVE (Negative) RSV RNA Qual (PCR) NEGATIVE (Negative) SARS-CoV-2 RNA (RT-PCR) NEGATIVE (Negative) 07/27/24 Range/Units 11:58 WBC (4.8-10.8) X10*3/uL RBC (4.20-5.50) X10*6/uL Hgb (12.0-16.0) g/dl Hct (37.0-47.0) % MCV (80.0-98.0) fL MCH (27.0-33.0) pg MCHC (31.0-35.0) g/dl RDW (11.0-16.0) % Plt Count (160-400) X10*3/uL MPV (9.4-12.3) fL Immature Gran % (Auto) (0.0-0.4) % Neut % (Auto) (45-73) % Lymph % (Auto) (20-40) % [place] % (Auto) (2-11) % Eos % (Auto) (0-4) % Baso % (Auto) (0-2) % Lymph # (Auto) (1.2-4.9) X10*3/uL [place] # (Auto) (0.1-1.2) X10*3/uL Eos # (Auto) (0.0-0.4) X10*3/uL Baso # (Auto) (0.0-0.2) X10*3/uL Abs Immat Gran (auto) (0.00-0.03) X10*3/uL Absolute Neuts (auto) (2.0-8.3) x10*3/uL Absolute Nucleated RBC (0.0-0.012) X10*3/uL Nucleated RBC % (auto) (0.0-0.2) /100WBC VBG pH (7.32-7.43) VBG pCO2 mmHg VBG pO2 mmHg VBG HCO3 (22-26) mmol/L VBG O2 Saturation % VBG Base Excess mmol/L Sodium (135-145) mmol/L Potassium (3.3-5.1) mmol/L Chloride (96-108) mmol/L Carbon Dioxide (22-29) mmol/L Anion Gap (12-20) BUN (9-16) mg/dL Creatinine (0.5-1.4) mg/dL Estim Creat Clear Calc Estimated GFR Random Glucose (60-115) mg/dL Lactic Acid 0.7 (0.5-2.0) mmol/L Calcium (8.4-10.2) mg/dL Magnesium (1.6-2.6) mg/dL Total Bilirubin (0.0-1.0) mg/dL AST (5-31) U/L ALT (0-31) U/L Alkaline Phosphatase (39-117) U/L Troponin I High Sens (<3.5-17.0) ng/L B-Natriuretic Peptide (<100) pg/mL Total Protein (6.5-8.0) g/dL Albumin (3.5-5.0) g/dL Urine Color Urine Appearance Urine pH (5.0-9.0) Ur Specific [place] (1.005-1.025) Urine Protein (Neg-Trace) mg/dL Urine Glucose (UA) (Negative) mg/dL Urine Ketones (Negative) mg/dL Urine Blood (Negative) Urine Nitrite (Negative) Ur Leukocyte Esterase (Negative) Urine RBC (0-2) /HPF Urine WBC (0-5) /HPF Ur Squamous Epith Cells (0-2) /HPF Urine Bacteria (None Seen) Hyaline Casts (0-2) /LPF Influenza Type A (PCR) (Negative) Influenza Type B (PCR) (Negative) RSV RNA Qual (PCR) (Negative) SARS-CoV-2 RNA (RT-PCR) (Negative) Independent Interpretation I performed an independent interpretation of an: EKG and Plain X-Ray (no consolidation) Interpretation: Rate: 77 Rhythm: NSR [place]: normal Normal P waves. Normal HEATHER. Normal QRS complex. ST T wave : no YVETTE, nonspecific ST T wave changes and depressions/inversions V3-V6, nonspecific ST T wave changes inf leads qTC: 402 prior studies: no change from 2022 The study has been interpreted contemporaneously by me. . Radiology Impression Discussion of test interpretation with radiology: I have reviewed the radiologist's reading. Independent Historian Clinical information obtained from an independent historian. History obtained from or confirmed by: Spouse External Record Review External record reviewed: Inpatient record and Outpatient record Prescription Management I considered prescription management with: Antibiotic and Other Discharge Plan Discharge Clinical Impression: Acute exacerbation of chronic obstructive pulmonary disease Patient Disposition: Home, Self-Care Instructions: COPD (Chronic Obstructive Pulmonary Disease) (ED) Additional Instructions: labs negative viral panel for FLU, RSV, COVID normal chest xray no acute findings will start you on prednisone and doxycylcine please take with food do not take on empty stomach - separate the dose by 1 hour (prednisone/doxycycline) NEXT DOSE OF PREDNISONE IS TOMORROW MORNING On doxycycline, do not take pills immediately before going to bed and swallow pills with plenty of water. Avoid direct sunlight, iron, antacids, and Pepto Bismol. Call your provider if you develop new ringing in your ears, new problems hearing, dizziness, difficulty swallowing, rash, abdominal discomfort, nausea, or diarrhea.? CLINICAL HISTORY: cough 2 view chest x-ray. Comparison: 03/05/2024 Findings: The lungs are adequately expanded. Chronic scarring and/or atelectasis of the left base. No focal consolidation. No effusion or pneumothorax. Chronic blunting of the right costophrenic margin. Cardiac and mediastinal contours are within normal limits. No acute osseous abnormality Impression: No acute process. Chronic changes as detailed. This document has been electronically signed by: Armin Tinsley MD on 07/27/2024 11:38:46 Prescriptions: New doxycycline hyclate 100 mg capsule 100 mg PO BID 7 Days Qty: 14 0RF prednisone 20 mg tablet 40 mg PO DAILY 5 Days Qty: 10 0RF No Action flecainide 100 mg tablet 100 mg PO Q12H Qty: 180 3RF diltiazem HCl 240 mg capsule,extended release 24 hr 240 mg PO DAILY Qty: 90 3RF omeprazole 40 mg capsule,delayed release(DR/EC) 40 mg PO BID@0630,1630 60 Days Qty: 120 3RF Xarelto 20 mg tablet 20 mg PO QPM Qty: 90 4RF albuterol sulfate 90 mcg/actuation HFA aerosol inhaler 2 puff inhalation Q4H PRN (Reason: Shortness Of Breath) lamotrigine 100 mg Tablet 100 mg PO BID Qty: 60 0RF (DME) nebulizers Misc See Rx Instructions .Route Rx Instructions: As directed (DME) Oxygen Home Use Kit See Rx Instructions .Route Rx Instructions: As directed budesonide 0.5 mg/2 mL suspension for nebulization 0.5 mg inhalation DAILY 30 Days Qty: 60 11RF levalbuterol HCl 1.25 mg/3 mL solution for nebulization 1.25 mg inhalation BID 30 Days Qty: 180 0RF atorvastatin 40 mg tablet 40 mg PO BEDTIME Qty: 90 0RF benzonatate 200 mg capsule 200 mg PO TID PRN (Reason: cough) Qty: 14 0RF Print Language: Italian
[2024-07-27] MEDS: methylPREDNISolone Sod Succ 125 MG/2 ML VIAL 60 MG IVPUSH (12:05)
[2024-07-27 12:06] VITALS: PULSE 83; RESP 24; O2SAT 99
[2024-07-27] MEDS: Albuterol Sulfate 2.5 MG, Albuterol/Iprat 2.5/0.5MG 3 ML 3 ML INHALE (12:10)
[2024-07-27 12:11] LABS: Troponin-I High Sensitivity 2.7 ng/L (<3.5-17.0)
[2024-07-27 12:17] LABS: B Type Natriuretic Peptide 22 pg/mL (<100)
[2024-07-27 12:17] LABS: Lactic Acid 0.7 mmol/L (0.5-2.0)
[2024-07-27] MEDS: cefTRIAXone sodium 1 GM VIAL IVPUSH (12:26)
[2024-07-27 14:32] VITALS: BP 149/58; PULSE 83; RESP 16; TEMP 37.1; O2SAT 95
[2024-07-27 14:36] VITALS: BP 149/58; PULSE 83; RESP 16; TEMP 37.1; O2SAT 95
== END 2024-07-27 14:36 | disposition home or self-care (01) ==
PROVIDERS: Emergency Provider Emergency Medicine; PCP Internal Medicine
DX: J44.1 Chronic obstructive pulmonary disease with (acute) exacerbation (principal); R94.31 Abnormal electrocardiogram [ECG] [EKG]; R06.02 Shortness of breath; Z03.818 Encounter for observation for suspected exposure to other biological agents ruled out; Z79.899 Other long term (current) drug therapy; Z87.891 Personal history of nicotine dependence
CPT/HCPCS: 0241U; 36415; 71046; 80053; 81001; 82803; 83605; 83735; 83880; 84484; 85025; 87040; 93005; 94640; 96374; 96375; 99284; 99285; J0696; J2919

== ENCOUNTER → 2024-07-27 10:11 | Outpatient (BNV) | payer MEDICARE, SELFPAY | PROVIDERS: Emergency Provider Emergency Medicine; PCP Internal Medicine; Visit Provider Radiology Vascular & Interventional Radiology | DX: J94.8 Other specified pleural conditions (principal) | CPT/HCPCS: 71046 ==

== ENCOUNTER → 2024-07-27 11:34 | Outpatient (BNV) | payer MEDICARE, SELFPAY | PROVIDERS: Emergency Provider Emergency Medicine; PCP Internal Medicine; Visit Provider Internal Medicine Cardiovascular Disease | DX: R94.31 Abnormal electrocardiogram [ECG] [EKG] (principal); R06.00 Dyspnea, unspecified | CPT/HCPCS: 93010 ==

== ENCOUNTER 2024-08-15 10:48 | Outpatient (AMB) | payer MEDICARE, SELFPAY ==
--- NOTE | 2024-08-15 10:54 | A.OFFVIS_ITS ---
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 Director Home Required: No Accompanied by: Spouse Allergies bupropion (From Wellbutrin) Allergy (Verified 10/16/25 12:50) Chest Pain ciprofloxacin Allergy (Verified 10/16/25 12:50) Chest Pain IV/IM prednisone Allergy (Uncoded 10/16/25 12:50) Seizure Medication List - Last Reconciled 08/15/24 by Nayely Lyn MD albuterol sulfate 90 mcg/actuation 2 puffs inhalation Q4H PRN benzonatate 200 mg PO TID PRN benzonatate 200 mg PO TID PRN budesonide 0.5 mg (2 mL) inhalation DAILY 30 days diltiazem HCl ER 240 mg PO DAILY flecainide 100 mg PO Q12H lamotrigine 100 mg PO BID levalbuterol HCl 1.25 mg (3 mL) inhalation BID 30 days nebulizers As directed omeprazole 40 mg PO BID@0630,1630 60 days Oxygen Home Use As directed rivaroxaban (Xarelto) 20 mg PO QPM HPI HPI 3 mnth follow up: Details: GI clinic visit for this 69 YF for FU of dysphagia and abnormal barium swallow TODAY'S VISIT: Patient reports nauseas, abdominal pain with bloating, Pt is accompanied by her Having a bad day today Lower abdominal and lower back is bothering her - feels like menstrual cramps x 3 days. Took prednisone and antibiotics (doxycycline) 2 weeks ago for a lung infection Denies any vaginal discharge. Has had multiple UTIs recently - does not think she has a UTI Denies fever or chills and getting episodes of sweating Has been careful with chewing. Had an episode of choking when she woke up Then she was able to clear her throat. Notes more trouble with swallowing pills than food and advised to take the pills with apple sauce. She was taking Zyrtec for PND at night and nothing during the day - advised to take non-drowsy formula during the day. She has no BM x 5 days, 6th day has 4-6 PAST VISITS Patient cc: abdominal discomfort, difficulty swallowing pill, between diarrhea and constipation. MBS results and speech pathologist recommendations were reviewed with the patient and her Denies any change in dysphagia Notes post nasal drip which aggravates her symptoms at night, Having trouble with the lower stomach. Nausea all day long - not keeping her from eating Constant lower abdominal pressure Denies improvement in abd pressure after she has a BM Has a BM daily and then no BM x 2 days. Takes Senna 1 pill every night and has a BM the following day. 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 Intermittent dysphagia to solids and liquids for the past year Seen by Dr Maldonado - had a barium study and advised to fu with Dr Hargrove. Hx of heartburn x 30 years and takes Omeprazole 40 mg twice daily Patient denies recent change in appetite or weight. Notes constipation alternating with diarrhea. Has 3-4 episodes of uncontrolled diarrhea every 6 weeks and unable to leave the house - lasts for 3-4 days. Treated with Pelvic floor exercises without improvement in symptoms. Can be constipated with no BM for 3-5 days. Tried taking different medications without relief. Drinks a lot of water and gatorade Patient has asthma, emphysema and is status post removal of for Stage 1 lung cancer in 2020 She is on Home O2 at night and prn during the day On Xarelto for AF Pt denies a hx of sleep apnea - had a sleep study Denies problems with anesthesia in the past. Patient denies known family history of colon polyps, colon cancer. Family hx is positive for esophageal and stomach cancer (Dad, two paternal uncles, Pat GM). Mat Gm had thyroid cancer. Pt worked in a [employer] and has 2 children LABS IN [facility] : 10/26/23 Reviewed IMAGING STUDIES: 03/11/24 MODIFIED BARIUM SWALLOW SHOWED: 1. Trace laryngeal penetration with thin barium. No subglottic aspiration was observed. 2. Moderate cricopharyngeal achalasia. SPEECH THERAPY ASSESSMENT: This exam was conducted by the radiologist and the speech pathologist. Patient was standing for lateral view and was able to self-feed without difficulty. She trialed thin (via individual and rapid straw sips), puree, and regular solid consistencies. Note good tongue control with no premature posterior spilling. Mastication was timely and efficient. Mildly slowed posterior lingual motion. Trace lingual residue cleared with a dry swallow. Pharyngeal swallow trigger initiated as the bolus head reached the valleculae. No evidence of nasopharyngeal reflux. Partial laryngeal elevation with partial epiglottic inversion. Complete laryngeal vestibular closure with no evidence of aspiration or penetration during this exam. Partial distention and partial obstruction of flow through the pharyngoesophageal segment (PES) opening with some retrograde flow in the pharynx. Observed cricopharyngeal bar. Trace residue on the tongue base and the posterior pharyngeal wall cleared with dry swallows. Liquid Intake Recommendation: Thin Liquid Intake Strategies: Small Sips Dietary Recommendations: Regular Medication Administration: Whole with Liquid Please contact the pharmacy regarding appropriate crushable or liquid drug formulations that are available whenever modified delivery is recommended. Compensatory Strategies Recommended: Sitting Upright (90 deg), Double Swallow, Small Bites and Sips, Alternate Liquids/Solids, Rate of Ingestion Change Supervision during eating and or drinking: None Needed Recommendation for Speech Therapy: NA:Typical EvaluationText Comment: Intake Recommendations: Route: PO Diet Grade: Regular Liquid Consistencies: Thin Post-Study Functional Oral Intake Scale (FOIS): 7- Total oral intake with no restrictions Oral phase was overall unremarkable, with good lingual control, intact rotary chew, and adequate oral clearance. Noted cricopharyngeal achalasia and partial distention through the PES which may be contributing to patient?s symptoms of globus sensation. No evidence of aspiration or penetration during this exam. Patient was able to clear trace residue in the pharynx with dry swallows. Suggested Referrals: The patient might benefit from a referral to: Gastroenterology Indication for Referral: cricopharyngeal achalasia Therapy Recommendations: Speech therapy is not indicated at this time. Recommend patient continue on a regular texture diet with thin liquids. Discussed behavioral strategies with patient to promote clearance: Take small bites, chew food well, alternate with sips of liquid, dry swallows between bites, maintain upright position while eating/drinking and for at least 30 minutes afterwards. Patient verbalized understanding and denied having any questions at this time. Advised patient to continue monitoring her dysphagia. If there are any changes or worsening of symptoms, she may benefit from a repeat-assessment. Prognosis for Improvement: The prognosis for the patient to meet nutritional needs by mouth is good based on degree of impairment. Clinician - Supplemental, Miscellaneous Communication: It is important to note MBSS objective studies are snapshots in time and Patient function might vary with factors such as time of day or concomitant medical conditions. For this reason, the final treatment plan for this patient should rest with their medical care team. Additional recommendations should be considered with the totality of the Patient in mind. 01/2023 BARIUM SWALLOW SHOWED: 1. Mild laryngeal penetration on thick barium identified, without extension to the true cords. No subglottic aspiration. 2. Mild to moderate cricopharyngeal achalasia. 3. Episodic gastroesophageal reflux to the level of the aortic arch. 4. Small to moderate sized type I hiatus hernia. 5. Somewhat patulous appearing esophagus without mucosal abnormality, stricture, or mass. Disordered esophageal motility consistent with moderate presbyesophagus. 6. Perceived gastric fold thickening, possibly artifactual due to inability of the patient to retain the effervescent granule gas, or possibly representing gastritis. No ulceration or mass evident. 7. Normal duodenal bulb and sweep. ENDOSCOPIC STUDIES: 2014 Colonoscopy was performed by Dr. Hargrove and a small tubular adenoma was removed from the transverse colon Had a stool Cologuard within the past 3 year - negative per patient. PAST GI HISTORY BY REVIEW OF MEDICAL RECORDS: Note by ALEXYS Pgae: 68-year-old female multiple comorbid illness- O2- dependent-SOB referred with ac halasia Established with Dr. Hargrove-for many years-seen a couple months ago- referring to Barium- no further recommendations don't worry about it Spoke further with Dr. Hargrove- he declined procedure due to anesthesia risk- She is hypoxic-shewas told unless life threatening no procedures or anesthesia- Barium swallow 01/2023- Follows with ENT- Saw pcp-Dr. Ni-referred for 2nd opinion She has difficulty swallowing- 2020-lung CA-surgical- Dr. Farooq Espinosa-3 yr scan-no recurrence She was seen previously @ [facility]- pulmonary-Sz- DX-disorder- 2019- Appetite is good- no wt loss Colonoscopy- Dr. Beena Tran-JAS Sz. disorder PFSH Medical History Recurrent urinary tract infection History of adenomatous polyp of colon GERD (gastroesophageal reflux disease) Surgical History S/P cardiac catheterization S/P partial lobectomy of lung H/O wrist surgery History of cholecystectomy Family History Mother Small cell lung cancer Father Stomach cancer Brother Diabetes Throat cancer Social History Household Members: Spouse and Children Housing: House Do you presently have visiting nurse or other home services: No Alcohol intake: current Alcohol intake frequency: does not drink Patient Tobacco Use Status: Former Tobacco user Years Smoked: 30 +/- e-Cigarette/Vaping Use: Never Used Substance Use Type: Marijuana Advance Directives Date on File: 04/21/22 service: No Current occupational status: retired Cognitive needs: No Hearing needs: No Vision needs: Yes Review of Systems Const All systems reviewed & are unremarkable except as noted in HPI and below Physical Exam Vital Signs: Last Vital Signs Pulse 83 08/15/24 11:06 BP 132/63 08/15/24 11:06 Pulse Ox 95 08/15/24 11:06 Oxygen Delivery Method Room Air 08/15/24 11:06 BMI result Body Mass Index 21.9 Const General: no acute distress and ill appearing chronically Nutritional Appearance: average body habitus Orientation/consciousness: patient oriented x3 Limitations: no limitations HEENT Head: Yes normal to inspection Ears: hearing grossly normal bilaterally Eyes Sclerae: sclerae normal Pupils: Equal, round and reactive pupils present Neck Neck: Yes normal visual inspection Chest Chest palpation & inspection: normal inspection of the chest Resp Effort & Inspection: normal respiratory effort Auscultation: clear to auscultation bilaterally Cardio Palpation: normal PMI Rate: regular rate Rhythm: regular rhythm Heart sounds: S1 normal heart sound present, S2 normal heart sound present and no murmurs GI Palpation (GI): Soft to palpation, nontender and No hepatosplenomegaly present Auscultation: normal bowel sounds Rectal Exam - Female: deferred Skin General skin exam: no rashes or lesions noted Neuro General: patient oriented x3, gait normal and moves all extremities Cranial nerves: Yes Equal, round and reactive pupils present Psych Appearance: grossly normal Mental Status: mental status grossly normal Assessment & Plan Assessment & Plan (1) Achalasia of esophagus: Comment: Established Dr. Hargrove- Code(s): K22.0 - Achalasia of cardia Category: Medical (2) Hiatal hernia: Code(s): K44.9 - Diaphragmatic hernia without obstruction or gangrene Category: Medical (3) Cricopharyngeal achalasia: Code(s): K22.0 - Achalasia of cardia Category: Medical (4) Diffuse abdominal pain: Code(s): R10.84 - Generalized abdominal pain Category: Medical (5) History of colon polyps: Comment: 2014 Colonoscopy was performed by Dr. Hargrove and a small tubular adenoma was removed from the transverse colon Had a stool Cologuard within the past 3 year - negative per patient. Pt considered high risk for anesthesia due to asthma-COPD overlap syndrome Code(s): Z86.0100 - Personal history of colon polyps, unspecified Category: Medical (6) Acute abdominal pain in left lower quadrant: Code(s): R10.32 - Left lower quadrant pain Category: Medical (7) Rectal bleeding: Code(s): K62.5 - Hemorrhage of anus and rectum Category: Medical Plan 69 YF with intermittent dysphagia to solids and liquids for the past year Dysphagia is likely a combination of esophageal motility disorder and crico- pharyngeal achalasia as seen on barium swallow Pt complains of constipation with no BM for 3-5 days and episodes of uncontrolled diarrhea every 6 weeks - she likely has chronic constipation followed by paradoxical diarrhea. Barium swallow results reviewed with the patient. She was advised that further evaluation with EGD can be high risk and not likely to provide [facility] relief of dysphagia Pt was advised to: 1. Schedule a modified barium swallow with speech pathologist. 2. To take a soft diet, chew her food well and take it with sips of fluids 3. Take Senna 1 tablet or capsule at bedtime for a week and increase to 2 tab/capsules if needed 10/17/24 Having trouble with the lower stomach. Nausea all day long - not keeping her from eating Constant lower abdominal pressure Denies improvement in abd pressure after she has a BM Has a BM daily and then no BM x 2 days. Takes Senna 1 pill every night and has a BM the following day. ADDENDUM: KUB SHOWED: Nonobstructive bowel gas pattern. Moderate stool burden. Possible trace right pleural effusion. Pt called and KUB results reviewed. Advised to increase Senna to two tab at bedtime Take Miralax once a day every morning. Advised to call if no improvement in symptoms in 1-2 weeks. 05/02/24 Notes more trouble with swallowing pills than food and advised to take the pills with apple sauce. She was taking Zyrtec for PND at night and nothing during the day - advised to take non-drowsy formula during the day and nasal saline drops prn. Pt advised to increase senna to 2 pills twice a day. If she continues to have constipation she can start taking Linzess 145 mcg daily and discontinue the senna 08/15/24 Has been careful with chewing. Had an episode of choking when she woke up Then she was able to clear her throat. Notes more trouble with swallowing pills than food and advised to take the pills with apple sauce. She was taking Zyrtec for PND at night and nothing during the day - advised to take non-drowsy formula during the day. Patient was advised to use hydrocortisone cream for hemorrhoids and schedule an abdominal CT scan. ABD CT SCAN SHOWED: 1. Large amount of stool throughout the colon. Sigmoid diverticulosis without evidence of diverticulitis. 2. Small hiatal hernia. FU in 4 weeks Orders: Orders CT abdomen pelvis w IV con 08/15/24 R10.32 - Left lower quadrant pain Medications: New hydrocortisone 2.5% 1 appl [place] BID-QID PRN 30 grams 3RF hemorrhoids 10 days K62.5 - Hemorrhage of anus and rectum Refilled benzonatate 200 mg PO TID PRN 14 caps 0RF cough Coding Level of Care Code Est Pt Level 4 (43516) Diagnoses Achalasia of esophagus K22.0 Hiatal hernia K44.9 Cricopharyngeal achalasia K22.0 Diffuse abdominal pain R10.84 History of colon polyps Z86.0100 Acute abdominal pain in left lower quadrant R10.32 Rectal bleeding K62.5 Time Spent (min) 21
[2024-08-15 11:05] VITALS: BP 132/63; PULSE 83; O2SAT 95; BMI 21.9
[2024-08-15 11:06] VITALS: BP 132/63; PULSE 83; O2SAT 95; BMI 21.9
--- OUTSIDE RECORDS SUMMARY | 2024-08-15 13:04 | XMS_ITS | Clinical Summary ---
Author Organization [facility] Address [address] [place] [address] Phone Care Team Providers Care Intelligence Senior Sergeant Name Role Phone Hayley Ni MD Primary Care Provider Surgical History Surgery Date Site/Laterality Comments OTHER SURGICAL HISTORY PROCEDURE: [place] THORACOSCOPY W/LOBECTOMY SINGLE LOBE; COMMENT: right upper lobectomy October 2020 Medical History Medical History Date Comments Tobacco abuse 07/05/2012 DX:Tobacco abuse Unspecified transient cerebr al ischemia 07/05/2012 DX:Unspecified transient cer ebral ischemia Cancer of upper lobe of righ t lung ([facility]/HCC) DX:Cancer of upper lobe of r ight lung ([facility]) A-fib ([facility]/HCC) DX:A-fib (HCC) Respiratory failure ([facility]/HCC) 04/02/2022 DX :Respiratory failure ([facility]); COMMENT: back to back grand mals Family [...] 11/10/2023 1:01 PM EDT Plan of Treatment Upcoming Encounters Date Type Department Care Team (Late st Contact Info) Description 10/10/2024 3:00 PM EDT Appointment [facility] CT Scan [address] [place] [address] Health Maintenance Due Date Last Done Comments Breast Cancer Screening 1955 COVID-19 Vaccine (#1) 1959 DTaP,Tdap,and Td Vaccines (1 - Tdap) 1973 [...] 05/15/2022 Hypertension/CHF/CAD Annual BMP Blood Test 05/19/2022 Influenza Vaccine (#1) 2024 HIB Vaccines Aged [...] on patient's age to complete this topic Insurance MEDICARE [facility] Care Teams Intelligence Senior Sergeant Relationship Specialty Start Date End Date Hayley Ni MD [address] [place] [address] PCP - General 11/10/23
--- OUTSIDE RECORDS SUMMARY | 2024-08-15 13:04 | XMS_ITS | Patient Health Record ---
Author Organization [facility] Address [address] [place] [id number] Care Team Providers Care Shift Supervisor Film Processing Name Role Phone Abigail Em MD Primary Care Provider Noah Hummel [phone] Allergies Allergen (clinical drug ingredient) Drug/Non Drug Allergy documented on EMR Reaction Allergy Type Onset Date Status Wellbutrin Unknown Drug Allergy Active Ciprofloxacin Unknown Drug Allergy Act ashley seasonal (uncoded) Unknown Allergy A ctive Reason For Referral No Information Medications Medication SIG (Take, Route, Frequency, Duration) Notes [...] 40 MG 1 Oral BID Ac tive Immunizations Vaccine Route Administration Date Status Comme nts Influenza Unknown 03/12/2019 Administered Influenza Unknown 03/12/2021 Administered Influenza Unknown 03/01/2022 Administered Social History Tobacco Use: Social History Observation Description Date Details (start date - stop date) Former Smoker NA - NA Tobacco Use/Smoking Question Answer Notes Patient is a former smoker When did you stop smoking? 4 years ago How long has it been since you last smoked? 1-5 years Alcohol Screen Question Answer Notes Did you have a drink containing alcohol in the p ast year? No Points 0 Interpretation Negative Section Notes: Smoker; no alcohol Smoker; no alcohol Smoker- 6 cigarettes/day; no alcohol Smoker- 6 cigarettes/day; no alcohol Nonsmoker since 08/2015; no a lcohol Nonsmoker since 08/2015; no a lcohol Nonsmoker since 08/2015; no a lcohol Nonsmoker since 08/2015; no a lcohol Nonsmoker since 08/2015; no a lcohol Problems Problem Type SNOMED Code ICD Code Onset Dates Problem Status W/U Status Risk Notes Problem [id number] Encounter for screening for malignant neoplasm of colon (Z12.11) Active confirmed Problem 911536207 History of adenomatous polyp of colon (Z86.010) Active confirmed Problem Nausea and vomiting (91887488) Nausea with vomiting, unspecified (R11.2) Active confirmed Problem 555263527 Gastroesophageal reflux disease without esophagitis (K21.9) Active confirmed Problem 71959651 Dysphagia, unspecified type (R13.10) Active confirmed Problem Acute diarrhea (360350634) Acute diarrhea (R19.7) Active confirmed Plan Of Treatment Pending Test Test Name Order Date CELIAC [...] Date MEDICARE OF [place] [address] [facility] [address] [phone] [id number] VJ MCGUIRE Self - patient is the insured [employer] ATT[employer] CLAIMS [address] [place] [address] [id number] VJ MCGUIRE Self - patient is the insured Medical (General) History Medical History History ICD Code GERD-EGD in [...] some sigmoid diverticulosis and internal hemorrhoids Denies TN,CVA,DM,renal disease Hyperlipidemia Anxiety since 08/2011 IBS-EGD with normal duodenal biopsies in 2012 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 during the day; going for a sleep study as of the 11/2019 OV to check for sleep apnea Pneumonia in 09/2015--at [facility] Hypertension Grand mal seizure 02/2020 at [facility] Atrial fibrillation with a l oop [...]
--- OUTSIDE RECORDS SUMMARY | 2024-08-15 13:05 | XMS_ITS ---
Author Organization [facility] Address [address] [place] [address] Care Team Providers Care Genetic Technologist Name Role Phone Abigail Em MD Primary Care Provider Noah Hummel Unavailable [phone] Allergies Allergen (clinical drug ingredient) Drug/Non Drug Allergy documented on EMR Reaction Allergy Type Onset Date Status Wellbutrin Unknown Drug Allergy Active Ciprofloxacin Unknown Drug Allergy Act ashley seasonal (uncoded) Unknown Allergy A ctive REASON FOR VISIT Patient presents today for dysphagia Medications Medication SIG (Take, Route, Frequency, Duration) [...] 40 MG 1 Oral BID Ac tive Social History Tobacco Use: Social History Observation [...] No Points 0 Interpretation Negative Section Notes: Nonsmoker since 08/2015; no a lcohol Vital Signs Temperature 97.1 degrees Fahrenheit 03/07/20 23 Blood pressure systolic 000 mm Hg 03/07/20 23 Blood pressure diastolic 00 mm Hg 023 Height 66 in 03/07/2023 Weight 157 lbs 03/07/2023 BMI 25.34 kg/m2 03/07/2023 Encounters Encounter Location Date Provider Diagnosis [facility] [address] [place] [address] 03/07/2023 Noah Hargrove Dysphagia, unspecifi ed type R13.10 and Gastroesophageal reflux disease without esophagitis K21.9 Assessments Encounter Date Diagnosis (ICD Code) Assessment Notes Treatment Notes Treatment Clinical Notes Section Notes 03/07/2023 Dysphagia, unspecified type (ICD-10 - R13.10) Continue the omeprazole and eat slowly. Overall, Zaynab appears well both from a GI standpoint and in general, particularly given her underlying lung disease. We did review her current symptomatology of the dysphagia and the completely negative workup in regard to any significant findings, including the ENT exam, barium swallow, and CT scan. Her symptoms do not seem to be clinically problematic nor worrisome at this time. Given her clinical appearance and negative workup, as well as her significant pulmonary disease with some oxygen dependence, I recommended that we hold off on an upper endoscopy at this time since I think the yield on that would be low and the risk with anesthesia could be relatively high. I advised her that she may very well have a component of esophageal dysmotility contributing to her symptoms, as well as some component of oropharyngeal dysphagia with some pooling of contents in the oropharynx before swallowing as described on the barium swallow. I did advise her to continue the omeprazole b.i.d. for maximal control of her reflux and to hopefully diminish any esophageal spasm. I did advise her to eat slowly and carefully as well. If things remain well I will see her in about one year for a followup office visit. I advised her to contact me sooner should she have any problems or questions I can be of assistance with. Zaynab and her were comfortable with this plan. Thank you again for allowing me to participate in Zaynab's care. I shall continue to keep you advised of her progress as needed. 03/07/2023 Gastroesophageal reflux disease without esophagitis (ICD-10 - K21.9) Overall, Zaynab appears well both from a GI standpoint and in general, particularly given her underlying lung disease. We did review her current symptomatology of the dysphagia and the completely negative workup in regard to any significant findings, including the ENT exam, barium swallow, and CT scan. Her symptoms do not seem to be clinically problematic nor worrisome at this time. Given her clinical appearance and negative workup, as well as her significant pulmonary disease with some oxygen dependence, I recommended that we hold off on an upper endoscopy at this time since I think the yield on that would be low and the risk with anesthesia could be relatively high. I advised her that she may very well have a component of esophageal dysmotility contributing to her symptoms, as well as some component of oropharyngeal dysphagia with some pooling of contents in the oropharynx before swallowing as described on the barium swallow. I did advise her to continue the omeprazole b.i.d. for maximal control of her reflux and to hopefully diminish any esophageal spasm. I did advise her to eat slowly and carefully as well. If things remain well I will see her in about one year for a followup office visit. I advised her to contact me sooner should she have any problems or questions I can be of assistance with. Zaynab and her were comfortable with this plan. Thank you again for allowing me to participate in Zaynab's care. I shall continue to keep you advised of her progress as needed. Plan Of Treatment Treatment Notes Assessment Notes Dysphagia, unspecified type Continue the omeprazole and eat slowly. Next Appt Details Follow Up: prn, Reason: Progress Notes * ZAYNAB MCGUIRE EDOB:[birth year] (68 yo F)Acc No.[id number]:03/07/2023 Progress Notes Patient:?ZAYNAB MCGUIRE Provider:?Noah Hargrove MD :1955???Age:67 Y???Sex:Female D ate:03/07/2023 Address:[address] [place], [place] [id number] Pcp:Abigail Em MD Subjective: * Chief Complaints: * ???Patient presents today fo r dysphagia * HPI: ???incontinence:? I saw Zaynab in the office today for evaluation of some sense of dysphagia and her chronic reflux. She was accompanied by her . ?I last saw Zaynab in December when she had come in for an office visit for followup. At that time she was having no particular GI issues. She has remained on omeprazole b.i.d. with good relief of her reflux symptoms other than occasional heartburn. Her bowel movements have remained fairly regular and without any signs of bleeding. Since I saw her in December she describes the onset of some sense of dysphagia with an occasional sense of food sticking along the left side of her neck, as well as some coughing with her meals. She is able to eat her food fairly normally and has not lost any weight since she was here in December. She denies any symptoms of esophageal obstruction. ?She was evaluated by Dr. Maldonado with an office exam, barium swallow, and CT scan of the neck. All her workup was basically nonrevealing. The barium swallow does describe some general esophageal dysmotility and some laryngeal penetration of barium but without any aspiration. The report also describes some component of cricopharyngeal achalasia, hiatal hernia, and her known reflux. The CT scan describes no sign of any lymphadenopathy nor masses. ?In general she feels fairly well. She still uses oxygen at night when she is sleeping. She is now seeing Dr. Redman for pulmonary as her previous solutions consultant has apparently retired. * ROS:?General/Constitutional:?Change in appetite?denies.?Chills?denies.?Fatigue?denies.?Ophthalmologic:?Patient denies? Negative..?ENT:?Patient denies?Negative..?Respiratory:?Patient denies?No coughing/hemoptysis..?Cardiovascular:?Patient denies? No chest pain/orthopnea..?Gastrointestinal:?Comments?See HPI for details.?Genitourinary:?Patient denies? No dysuria/hematuria..?Musculoskeletal:?Patient denies? No specific arthralgias/myalgias..?Comments?Neck pain.?Skin:?Patient denies?No rash/pruritus..?Neurologic:?Patient denies? No headaches/seizures..?Psychiatric:?Patient denies?Negative..? * Medical History:? * Surgical History:?Cosmetic s urgery- neck lift Ganglion cyst removed from left wrist [facility] 2018Resection of upper 1/2 of right lung for cancer-Dr. Correia 10/21/2020 * Hospitalization/Major Diagno stic Procedure:? * Family History:?Father: dece ased, stomach.?Mother: .? Patient reports gastric cancer in her father, and paternal grandmother and uncle. No colorectal cancer. * Social History:?Tobacco Use:?Tobacco Use/Smoking?Patient is a?former smoker,?When did you stop smoking??4 years ago,?How long has it been since you last smoked??1-5 years.?Drugs/Alcohol:?Alcohol Screen?Did you have a drink containing alcohol in the past year??No,?Points?0,?Interpretation?Negative.?Miscellaneous:?Caffeine: 1-2 cups per day. Marital status: . Occupation: retired. ???Nonsmoker since 08/2015; no alcohol. * Medications:?TakingProAir HF A lamoTRIgine 100 MG Tablet 1 tablet Orally twice a dayBreztri Aerosphere 160-9-4.8 MCG/ACT Aerosol Inhalation hydroCHLOROthiazide 12.5 MG Tablet TAKE 1 TABLET BY MOUTH DAILY AT BEDTIME Oral Xarelto 20 MG Tablet Oral Flecainide Acetate 100 MG Tablet Oral Montelukast Sodium 10 MG Tablet TAKE 1 TABLET BY MOUTH EVERY DAY AT BEDTIME Oral Nebulizer - Miscellaneous as directed Omeprazole 40 MG Capsule Delayed Release 1 Oral BIDTaking ProAir HFA Taking lamoTRIgine 100 MG Tablet 1 tablet Orally twice a dayTaking Breztri Aerosphere 160-9-4.8 MCG/ACT Aerosol Inhalation Taking hydroCHLOROthiazide 12.5 MG Tablet TAKE 1 TABLET BY MOUTH DAILY AT BEDTIME Oral Taking Xarelto 20 MG Tablet Oral Taking Flecainide Acetate 100 MG Tablet Oral Taking Montelukast Sodium 10 MG Tablet TAKE 1 TABLET BY MOUTH EVERY DAY AT BEDTIME Oral Taking Nebulizer - Miscellaneous as directed Taking Omeprazole 40 MG Capsule Delayed Release 1 Oral BIDDiscontinuedAzithromycin 250 MG Tablet Oral Discontinued Azithromycin 250 MG Tablet Oral Unknownnexium Medication List reviewed and reconciled with the patientUnknown nexium Medication List reviewed and reconciled with the patient * Allergies:?seasonalWellbutri nCiprofloxacinyes[Allergies Verified] Objective: * Vitals:?Wt: 157 lbs, Ht: 66 in, BMI:25.34 Index, BP: 000/00 mm Hg, Temp: 97.1. * Examination: ???General Examination: ?GENERAL APPEARANCE:?pleasant, well nourished, well developed, in no acute distress.?EYES:?sclera non-icteric.?ORAL CAVITY:?mucosa moist.?NECK/THYROID:?no cervical lymphadenopathy, neck supple.?SKIN:?nonjaundiced, no spider angiomata..?HEART:?S1, S2 normal.?LUNGS:?clear to auscultation bilaterally.?ABDOMEN:?normal bowel sounds, no guarding or rigidity, no hepatosplenomegaly, no masses palpable, soft, nontender, nondistended..?EXTREMITIES:?no edema.?NEUROLOGIC:?alert and oriented.? Assessment: * Assessment: 1.?Gastroesophageal reflux d isease without esophagitis - K21.9 (Primary)?2.?Dysphagia, unspecified type - R13.10? Overall, Zaynab appears w ell both from a GI standpoint and in general, particularly given her underlying lung disease. We did review her current symptomatology of the dysphagia and the completely negative workup in regard to any significant findings, including the ENT exam, barium swallow, and CT scan. Her symptoms do not seem to be clinically problematic nor worrisome at this time. Given her clinical appearance and negative workup, as well as her significant pulmonary disease with some oxygen dependence, I recommended that we hold off on an upper endoscopy at this time since I think the yield on that would be low and the risk with anesthesia could be relatively high. I advised her that she may very well have a component of esophageal dysmotility contributing to her symptoms, as well as some component of oropharyngeal dysphagia with some pooling of contents in the oropharynx before swallowing as described on the barium swallow. I did advise her to continue the omeprazole b.i.d. for maximal control of her reflux and to hopefully diminish any esophageal spasm. I did advise her to eat slowly and carefully as well. If things remain well I will see her in about one year for a followup office visit. I advised her to contact me sooner should she have any problems or questions I can be of assistance with. Zaynab and her were comfortable with this plan. Thank you again for allowing me to participate in Zaynab's care. I shall continue to keep you advised of her progress as needed. Plan: * Treatment: * Procedure Codes:?3017F COLOR ECTAL CA SCREEN DOC [id number] TOBACCO [id number] BP SCR NOT PRFRM REC REASON NOS * Preventive Medicine:? ??Counseling:?Care goal follow-up plan:?Above Normal BMI Follow-up?Giving encouragement to exercise,?BMI management provided?Yes.? ??Urinary Incontinence:?Urinary Incontinence?Assessment:?Absent,?Plan of care documented:?No, reason not specified.? * Follow Up:?prn * * Sign off status: Completed true * Provider:?Noah Hargrove MD Date:? 023 Generated for Constantino collier/Lia/[place] on:?08/15/2024 01:04 PM EST History and Physical Notes * HPI (History of Present Illness) Category Sub-Category Detail Notes Category Not es incontinence I saw Zaynab in the office today for evaluation of some sense of dysphagia and her chronic reflux. She was accompanied by her . I last saw Zaynab in December when she had come in for an office visit for followup. At that time she was having no particular GI issues. She has remained on omeprazole b.i.d. with good relief of her reflux symptoms other than occasional heartburn. Her bowel movements have remained fairly regular and without any signs of bleeding. Since I saw her in December she describes the onset of some sense of dysphagia with an occasional sense of food sticking along the left side of her neck, as well as some coughing with her meals. She is able to eat her food fairly normally and has not lost any weight since she was here in December. She denies any symptoms of esophageal obstruction. She was evaluated by Dr. Maldonado with an office exam, barium swallow, and CT scan of the neck. All her workup was basically nonrevealing. The barium swallow does describe some general esophageal dysmotility and some laryngeal penetration of barium but without any aspiration. The report also describes some component of cricopharyngeal achalasia, hiatal hernia, and her known reflux. The CT scan describes no sign of any lymphadenopathy nor masses. In general she feels fairly well. She still uses oxygen at night when she is sleeping. She is now seeing Dr. Redman for pulmonary as her previous solutions consultant has apparently retired. Examination Category Sub-Category Detail Notes Category Not es General Examination GENERAL APPEARANCE: pleasant , well [...]
== END 2024-08-15 12:27 | disposition home or self-care (01) ==
PROVIDERS: PCP Internal Medicine; Visit Provider Internal Medicine Gastroenterology
DX: K22.0 Achalasia of cardia (principal); K44.9 Diaphragmatic hernia without obstruction or gangrene; R10.84 Generalized abdominal pain; Z86.0100 Personal history of colon polyps, unspecified; R10.32 Left lower quadrant pain; K62.5 Hemorrhage of anus and rectum
CPT/HCPCS: 99214

== ENCOUNTER 2024-08-28 11:12 | Outpatient (REF) | payer MEDICARE, SELFPAY ==
--- NOTE | ~2024-08-28 | CT_ITS ---
EXAMINATION: CT ABDOMEN PELVIS WITH IV CONTRAST HISTORY: R10.32 - Left lower quadrant pain COMPARISON: There are no prior studies for comparison. TECHNIQUE: CT scan of the abdomen and pelvis was performed following administration of 85 mL Omnipaque 350 using standard departmental protocol. Coronal and sagittal reformatted images were generated and reviewed. The patient received oral contrast material. This CT exam was performed with one or more of the following dose reduction techniques: automated exposure control, adjustment of the mA and/or kV according to patient size, use of iterative reconstruction technique. DLP: 422 mGy-cm FINDINGS: LOWER CHEST: The visualized lung bases are clear. There is no pleural effusion. CARDIOVASCULATURE: The heart is normal in size. There is no pericardial effusion. LIVER: The liver is normal in size and contour. No liver mass is identified. The hepatic and portal veins are patent. GALLBLADDER / BILE DUCTS: The gallbladder is surgically absent. There is no intra or extrahepatic biliary ductal dilatation. SPLEEN: The spleen is normal in size. No focal splenic lesion is identified. PANCREAS: The pancreas is unremarkable in appearance. ADRENAL GLANDS: Within normal limits. KIDNEYS/RETROPERITONEUM: The kidneys are mildly lobulated which may represent scarring. No renal calculi are identified. There is no hydronephrosis. No renal masses are identified. LYMPH NODES: No abdominal or pelvic lymphadenopathy. VASCULATURE: The abdominal aorta demonstrates atherosclerotic calcification, but is normal in caliber. MESENTERY/PERITONEUM: No free fluid. No masses. There is no free intraperitoneal gas. STOMACH: There is a small hiatal hernia. The remainder of the stomach is collapsed. SMALL BOWEL: The small bowel is normal in caliber. COLON: There is a large amount of stool throughout the colon. There is diverticulosis of the sigmoid colon, without evidence of diverticulitis. APPENDIX: Normal. URINARY BLADDER/PELVIC ORGANS: The urinary bladder is unremarkable. The uterus and ovaries are unremarkable. BONES / SOFT TISSUES: There is degenerative disc disease of the spine. CT/CT abdomen pelvis w IV con IMPRESSION: 1. Large amount of stool throughout the colon. Sigmoid diverticulosis without evidence of diverticulitis. 2. Small hiatal hernia. Electronically signed by: Noah Uribe MD 08/28/2024 02:45 PM EDT RP
--- OUTSIDE RECORDS SUMMARY | 2024-08-28 13:38 | XMS_ITS | Clinical Summary ---
Author Organization [facility] Address [address] [place] [address] Phone Care Team Providers Care Print Buyer Name Role Phone Hayley Ni MD Primary Care Provider [phone] Surgical History Surgery Date Site/Laterality Comments OTHER SURGICAL HISTORY PROCEDURE: ME THORACOSCOPY W/LOBECTOMY SINGLE LOBE; COMMENT: right upper lobectomy October 2020 Medical History Medical History Date Comments Tobacco abuse 07/05/2012 DX:Tobacco abuse Unspecified transient cerebr al ischemia 07/05/2012 DX:Unspecified transient cer ebral ischemia Cancer of upper lobe of righ t lung ([facility]/HCC) DX:Cancer of upper lobe of r ight lung ([facility]) A-fib ([facility]/HCC) DX:A-fib (HCC) Respiratory failure ([facility]/HCC) 04/02/2022 DX :Respiratory failure (HCC); COMMENT: back [...] Upcoming Encounters Date Type Department Care Team ([facility] st Contact Info) Description 10/10/2024 3:00 PM EDT Appointment [facility] CT Scan [address] [place] [id number] 10/17/2024 11:00 AM EDT Office Visit Thoracic Surgery - [place] [address] [place] [address] Rebekah Herman PA [address] [place] [address] Health Maintenance Due Date Last Done Comments [...] Risk Assessment 05/15/2022 Hepatitis C Screening 05/15/2022 Medicare Annual Wellness Visit 05/15/2022 Osteoporosis Screening (Bone Density Screening) 05/15/2022 [...] age to complete this topic Insurance MEDICARE [facility] Care Teams Print Buyer Relationship Specialty Start Date End Date Hayley Ni MD [address] [place] [address] PCP - General 11/10/23
--- OUTSIDE RECORDS SUMMARY | 2024-08-28 13:39 | XMS_ITS | Patient Health Record ---
Author Organization [facility] Address [address] [place] [address] Care Team Providers Care Academic Director Name Role Phone Abigail Em MD Primary Care Provider Noah Hummel [phone] Allergies Allergen (clinical drug ingredient) Drug/Non Drug [...] Problem Status W/U Status Risk Notes Problem 077460711 Encounter for screening for malignant neoplasm of colon (Z12.11) Active confirmed Problem 135560072 History of adenomatous polyp of colon (Z86.010) Active confirmed Problem Nausea and vomiting (77088623) Nausea with vomiting, unspecified (R11.2) Active confirmed Problem 407152214 Gastroesophageal reflux disease without esophagitis (K21.9) Active confirmed Problem 32665056 Dysphagia, unspecified type (R13.10) Active confirmed Problem Acute diarrhea (055807504) Acute diarrhea (R19.7) Active confirmed Plan Of [...] Date MEDICARE OF [place] [address] [facility] [id number] [id number] VJ MCGUIRE Self - patient is the insured [employer] ATT[employer] CLAIMS [address] [place] [address] [phone] [id number] 2 VJ MCGUIRE Self - patient is [...] some sigmoid diverticulosis and internal hemorrhoids Denies WI,CVA,DM,renal disease Hyperlipidemia Anxiety since 08/2011 IBS-EGD with normal duodenal biopsies in 2012 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 during the day; going for a sleep study as of the 11/2019 OV to check for sleep apnea Pneumonia in 09/2015--at [facility] Hypertension Grand mal seizure 02/2020 at [facility] Atrial fibrillation with a l oop recorder [...]
--- OUTSIDE RECORDS SUMMARY | 2024-08-28 13:39 | XMS_ITS ---
Author Organization [facility] Address [address] [place] [address] Care Team Providers Care Mask Former Name Role Phone Abigail Em MD Primary Care Provider Noah Hummel Unavailable [phone] Allergies Allergen (clinical drug ingredient) Drug/Non Drug [...] 03/07/2023 Encounters Encounter Location Date Provider Diagnosis [facility] [address] [place] [address] 03/07/2023 Noah Hargrove Dysphagia, unspecifi ed type [...] * ZAYNAB MCGUIRE EDOB:[birth year] (68 yo F)Acc No.[id number]:03/07/2023 Progress Notes Patient:?ZAYNAB MCGUIRE Provider:?Noah Hargrove MD :1955???Age:67 Y???Sex:Female D ate:03/07/2023 Address:[address] [place], [place] [id number] Pcp:Abigail Em MD Subjective: * Chief Complaints: [...] Dr. Redman for pulmonary as her previous lofter has apparently retired. * ROS:?General/Constitutional:?Change in appetite?denies.?Chills?denies.?Fatigue?denies.?Ophthalmologic:?Patient [...] Procedure Codes:?3017F COLOR ECTAL CA SCREEN DOC [id number] TOBACCO NON-[id number] BP SCR NOT PRFRM REC REASON NOS * Preventive Medicine:? ??Counseling:?Care goal follow-up plan:?Above Normal BMI Follow-up?Giving encouragement to exercise,?BMI management provided?Yes.? ??Urinary Incontinence:?Urinary Incontinence?Assessment:?Absent,?Plan of care documented:?No, reason not specified.? * Follow Up:?prn * * Sign off status: Completed true * Provider:?Noah Hargrove MD Date:? 023 Generated for Constantino collier/Lia/[place] on:?08/28/2024 01:38 PM EDT History and Physical Notes * HPI (History [...] Dr. Redman for pulmonary as her previous lofter has apparently retired. Examination Category Sub-Category Detail [...]
[2024-08-28] MEDS: Barium Sulfate Oral (Berry) 450 ML ORAL.SUSP 900 ML PO (14:10)
[2024-08-28] MEDS: iohexoL 350 MG/ML 100 ML INFUS..BTL IV (14:10)
[2024-08-29 14:00] LABS: Creatinine POC 1.1 mg/dL (0.5-1.4); GFR POC 55
== END 2024-08-28 11:13 | disposition home or self-care (01) ==
LOC: HO.CT 11:12
PROVIDERS: PCP Internal Medicine; Visit Provider Internal Medicine Gastroenterology
DX: R10.32 Left lower quadrant pain (principal)
CPT/HCPCS: 74177; 82565; Q9967

== ENCOUNTER → 2024-08-28 11:14 | Outpatient (BNV) | payer MEDICARE, SELFPAY | PROVIDERS: PCP Internal Medicine; Visit Provider Radiology Diagnostic Radiology | DX: K57.30 Diverticulosis of large intestine without perforation or abscess without bleeding (principal); K44.9 Diaphragmatic hernia without obstruction or gangrene | CPT/HCPCS: 74177 ==

== ENCOUNTER 2024-09-03 13:58 | Outpatient (AMB) | payer MEDICARE, SELFPAY ==
[2024-09-03 14:11] VITALS: BP 138/70; PULSE 77; O2SAT 95; BMI 22.2
--- NOTE | 2024-09-03 14:11 | A.OFFVIS_ITS ---
Vital Signs 09/03/24 14:11 Height 5 ft 6 in Weight 137 lb 12.623 oz BMI 22.2 BP 138/70 Blood Pressure Location Rt brachial Position Sitting Pulse 77 Pulse Source Pulse Oximeter Pulse Oximetry (%) 95 Oxygen Delivery Method Room Air Intake Visit Reasons: COPD Allergies bupropion [From Wellbutrin] Allergy (Verified 09/03/24 14:14) Chest Pain ciprofloxacin Allergy (Verified 09/03/24 14:14) Chest Pain IV/IM prednisone Allergy (Uncoded 09/03/24 14:14) Seizure HPI Comments Details: The patient is a 69 year woman with a known history of COPD in addition to lung cancer. Apparently she underwent a screening imaging study demonstrating a right upper lobe pulmonary malignant process. She referred to thoracic surgery where she underwent a right upper lobe lobectomy with curative intent. The patient was indeed confirmed to have cancer and she did not need any chemo or radiation. She did have her serial CT scans every 6 months and now moved over to every year. Back in March 2022 she was admitted to the hospital with palpitations cardiac arrhythmia and atrial fibrillation. During the hospitalization she did have a CTA which was personally by me demonstrating the postsurgical changes in addition to all other subcentimeter pulmonary nodules. in addition to this her CT scan demonstrates evidence of mosaic pattern suggesting of air trapping from her obstructive airway disease. Regards of her COPD the patient was placed on azithromycin which she is has been taking. Although, she is also been taking flecainide which is a concern as far as QT prolongation and severe cardiac arrhythmias. Therefore, the patient is okay stopping the medication at this time. She is using Breztri inhaler which has been affecting beneficial. Does not appear to be activating her atrial fibrillation. In addition to this the patient does have a hiatal hernia. She does sleep elevated and does take a PPI. Currently she is asymptomatic. 05/25/2023 the patient is here for a pulmonary follow-up visit. The patient now is recovering from COVID-19. She does fairly sick. She yet is 2 weeks out. The patient still having some shortness of breath chest tightness and chest congestion. She also feels fatigued. She did not take packs [place]. She had not taken any medications. She has been using her nebulizer and also her respiratory medicines. She does have a history atrial fibrillation. I will switch her DuoNeb over to Xopenex to minimize in the irritability to the heart. The patient also she underwent pulmonary function studies. It was very hard for her to go them. Consistent with her COPD in addition to diffusion impairment. She does have oxygen available. She will benefit from pulmonary rehabilitation. Will consider this when she improves after having COVID. We did review her CT scan of the chest that she had back in 2021. She does appear to have some irregular airways likely just kinking of the airways postoperatively. Although would not be unreasonable to consider bronchoscopy. We will reassess her in the springtime. If she continues to be symptomatic will consider bronchoscopy o therwise will wait for CT scan that will be done sometime in October. [id number] the patient is here for a pulmonary follow-up visit. The patient overall has been doing okay. She does have a follow-up with thoracic surgery this week to follow-up with her CT scan of the chest. Her CT scan did get the report and is reassuring with postoperative changes and stable pulmonary nodules. She continues to have shortness of breath. Does not seem to respond as well to the respiratory inhaler, Breztri. She would like to try Trelegy instead. I will send to the pharmacy and see flu prior approval. The patient also has a rescue medicine that she can use as needed. She complains of the shortness of breath with activity. Moderate severity even with minimal activity. The patient is likely deconditioned. She needs to start pulmonary rehabilitation. She is agreeable at this time start here. Her last PFTs did demonstrate significant COPD. 01/04/2024 the patient is here for a pulmonary follow-up visit. She is having hard time with the breathing. Having chest congestion cough shortness of breath. She has been using her nebulizer with partial improvement. She has been noticing increasing breathlessness moderate severity. The patient denies any fevers or chills. She did recently was placed on Macrobid for UTI and she is also dealing with dental issues. Feels that she has not dental infection. She started to cough more as well and has been having more chest congestion. Her CT scans at now yearly based on her stability of her lung cancer history this is followed by thoracic surgery at [facility]. In addition to that the patient needs additional respiratory medications. Inhalers have not effective. Therefore which is switch over to nebulized therapy. She continues on the Xopenex that she continue continue twice a day. Will go ahead and add a long- acting muscarinic antagonist and also add a inhaled corticosteroid via nebulizer. The patient follow-up in 3 4 months. If the patient is no better she will call for further evaluation. 09/03/2024 the patient is here for pulmonary follow-up visit. Overall the patient has been doing okay now. She did have significant bout of bronchitis in the COPD exacerbation. She did go to the ER where she was diagnosed with parainfluenza. She also developed a COPD exacerbation. The patient was given antibiotics and prednisone. She is slowly recovering. She has been using the nebulized therapy. Her insurance now change in therefore she rather take inhalers. I will go ahead and send her Trelegy instead. She can use the Xopenex as needed. The patient also does have chronic bronchitis. She responded well to the azithromycin in the past. She can try for 2-3 months. In the meantime she did have a CT scan of the abdomen because of abdominal discomfort. She does have some underlying pulmonary nodules subcentimeter in size in the right lower lobe. She is scheduled to have a repeat CT scan of the chest in the coming months [place]. [facility] Medical History History of lung cancer Breast mass, right COPD (chronic obstructive pulmonary disease) Dyslipidemia History of adenomatous polyp of colon Hx of TIA (transient ischemic attack) and stroke History of seizure disorder Achalasia of esophagus Osteoporosis HTN (hypertension) KRISTEN on CPAP Asthma-COPD overlap syndrome GERD (gastroesophageal reflux disease) Surgical History S/P cardiac catheterization S/P partial lobectomy of lung H/O wrist surgery History of cholecystectomy Family History Mother Small cell lung cancer Father Stomach cancer Brother Diabetes Throat cancer Social History Household Members: Spouse and Children Housing: House Do you presently have visiting nurse or other home services: No Alcohol intake: current Alcohol intake frequency: does not drink Patient Tobacco Use Status: Former Tobacco user Years Smoked: 30 +/- e-Cigarette/Vaping Use: Never Used Substance Use Type: Marijuana Advance Directives Date on File: 04/21/22 service: No Current occupational status: retired Cognitive needs: No Hearing needs: No Vision needs: Yes Review of Systems Const Denies chills, Reports fatigue, Denies fever(s), Denies frequent falls, Denies weakness, Denies weight gain and Denies weight loss Eyes Denies change in vision ENT Denies dizziness and Denies throat swelling Card Denies chest pain, Denies leg edema, Denies lightheadedness, Denies palpitations, Denies dyspnea, Reports dyspnea on exertion, Denies orthopnea and Denies other (loss of consciousness) Resp Reports change in phlegm color, Reports chest congestion, Reports cough, Denies dyspnea, Reports dyspnea on exertion and Reports wheezing GI Denies hematochezia and Denies change in stool character Musc Denies abnormal gait, Denies muscle weakness, Denies numbness, Denies radiating pain into limb and Denies tingling Neuro Denies abnormal gait, Denies dizziness, Denies frequent falls, Denies numbness, Denies tingling and Denies weakness Endo Reports fatigue and Denies palpitations Aller/Immun Denies seasonal rhinorrhea, Denies throat swelling and Reports wheezing Physical Exam Vital Signs: Last Vital Signs Pulse 77 09/03/24 14:11 BP 138/70 09/03/24 14:11 Pulse Ox 95 09/03/24 14:11 Oxygen Delivery Method Room Air 09/03/24 14:11 BMI result Body Mass Index 22.2 Const General: cooperative, comfortable and no acute distress Orientation/consciousness: patient oriented x3 Chest Chest palpation & inspection: normal inspection of the chest Resp Effort & Inspection: normal respiratory effort and prolonged expiratory phase Auscultation: no wheezes and diminished lung sounds Cardio Rate: regular rate Rhythm: regular rhythm Heart sounds: S1 normal heart sound present and S2 normal heart sound present Neuro General: patient oriented x3 Extrem General: Yes no pedal edema Assessment & Plan Assessment & Plan (1) Asthma-COPD overlap syndrome: Code(s): J44.9 - Chronic obstructive pulmonary disease, unspecified Category: Medical (2) Lung cancer: Code(s): C34.90 - Malignant neoplasm of unspecified part of unspecified bronchus or lung Category: Medical Qualifiers: Laterality: unspecified laterality Lung location: unspecified part of lung Qualified Code(s): C34.90 - Malignant neoplasm of unspecified part of unspecified bronchus or lung (3) KRISTEN on CPAP: Code(s): G47.33 - Obstructive sleep apnea (adult) (pediatric) Category: Medical (4) COPD (chronic obstructive pulmonary disease): Code(s): J44.9 - Chronic obstructive pulmonary disease, unspecified Category: Medical Qualifiers: COPD type: COPD with acute exacerbation Qualified Code(s): J44.1 - Chronic obstructive pulmonary disease with (acute) exacerbation (5) Lower respiratory infection (e.g., bronchitis, pneumonia, pneumonitis, pulmonitis): Code(s): J22 - Unspecified acute lower respiratory infection Category: Medical Plan stop BUdesonide daily start Trelegy GÓMEZ as needed continue Xopenex for nebulizer medicine Serial CT chest as per Thoracic surgery, October 2023 was good, Awaiting October 2024 at [facility] sleep elevated pulmonary rehab completed Bloodwork F/U 6-8 months Orders: Orders Erythrocyte Sedimentation Rate Today J22 - Unspecified acute lower respiratory infection CRP High Sensitivity Today J22 - Unspecified acute lower respiratory infection Immunoglobulin E Today J22 - Unspecified acute lower respiratory infection Immunoglobulins,IgG IgA IgM Today J22 - Unspecified acute lower respiratory infection Complete Blood Count Auto Diff Today J22 - Unspecified acute lower respiratory infection Medications: New tmkosltvcnt-vmhjvabxq-maqwydsz 200-62.5-25 mcg (Trelegy Ellipta) 1 inh inhalation DAILY 60 ea 12RF 30 days Coding Level of Care Code Est Pt Level 4 (65762) Complex EM visit Add On G2211 Diagnoses Asthma-COPD overlap syndrome J44.9 Malignant neoplasm of lung, unspecified laterality, unspecified part of lung C34.90 Laterality: unspecified laterality Lung location: unspecified part of lung KRISTEN on CPAP G47.33 Chronic obstructive pulmonary disease with acute exacerbation J44.1 COPD type: COPD with acute exacerbation Lower respiratory infection (e.g., bronchitis, pneumonia, pneumonitis, pulmonitis) J22 Time Spent (min) 17
--- OUTSIDE RECORDS SUMMARY | 2024-09-03 17:27 | XMS_ITS ---
Author Organization [facility] Address [address] [place] [address] Care Team Providers Care Drawbridge Tender Name Role Phone Abigail Em MD Primary Care Provider Noah Hummel Unavailable [phone] Allergies Allergen (clinical drug ingredient) Drug/Non Drug [...] 03/07/2023 Encounters Encounter Location Date Provider Diagnosis [facility] [address] [place] [address] 03/07/2023 Noah Hargrove Dysphagia, unspecifi ed type [...] * ZAYNAB MCGUIRE EDOB:[birth year] (68 yo F)Acc No.[id number]:03/07/2023 Progress Notes Patient:?ZAYNAB MCGUIRE Provider:?Noah Hargrove MD :[id number]???Age:67 Y???Sex:Female D ate:03/07/2023 Address:[address] [place], [place] [id number] Pcp:Abigail Em MD Subjective: * Chief Complaints: [...] 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 * ROS:?General/Constitutional:?Change in appetite?denies.?Chills?denies.?Fatigue?denies.?Ophthalmologic:?Patient [...] Procedure Codes:?3017F COLOR ECTAL CA SCREEN DOC [id number] TOBACCO [id number] BP SCR NOT PRFRM REC REASON NOS * Preventive Medicine:? ??Counseling:?Care goal follow-up plan:?Above Normal BMI Follow-up?Giving encouragement to exercise,?BMI management provided?Yes.? ??Urinary Incontinence:?Urinary Incontinence?Assessment:?Absent,?Plan of care documented:?No, reason not specified.? * Follow Up:?prn * * Sign off status: Completed true * Provider:?Noah Hargrove MD Date:? 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 Examination Category Sub-Category Detail [...]
--- OUTSIDE RECORDS SUMMARY | 2024-09-03 17:27 | XMS_ITS | Patient Health Record ---
Author Organization [facility] Address [address] [place] [address] Care Team Providers Care Brusher Machine Name Role Phone Abigail Em MD Primary Care Provider Noah Hummel [phone] Allergies Allergen (clinical drug ingredient) Drug/Non Drug [...] Problem Status W/U Status Risk Notes Problem [id number] Encounter for screening for malignant neoplasm of colon (Z12.11) Active confirmed Problem 346262627 History of adenomatous polyp of colon (Z86.010) Active confirmed Problem Nausea and vomiting (21658702) Nausea with vomiting, unspecified (R11.2) Active confirmed Problem 872268767 Gastroesophageal reflux disease without esophagitis (K21.9) Active confirmed Problem 93176681 Dysphagia, unspecified type (R13.10) Active confirmed Problem Acute diarrhea (428385932) Acute diarrhea (R19.7) Active confirmed Plan Of [...] Date MEDICARE OF [place] [address] [facility] [id number] VJ MCGUIRE Self - patient is the insured [employer] ATT[employer] CLAIMS [address] [place] [address] [id number] 2 VJ MCGUIRE Self - patient is [...] some sigmoid diverticulosis and internal hemorrhoids Denies [place],CVA,DM,renal disease Hyperlipidemia Anxiety since 08/2011 IBS-EGD with normal duodenal biopsies in 2012 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 during the day; going for a sleep study as of the 11/2019 OV to check for sleep apnea Pneumonia in 09/2015--at [facility] Hypertension Grand mal seizure 02/2020 at [facility] Atrial fibrillation with a l oop recorder [...]
--- OUTSIDE RECORDS SUMMARY | 2024-09-03 17:27 | XMS_ITS | Clinical Summary ---
Author Organization [facility] Address [address] [place] [address] Phone Care Team Providers Care Esl Instructional Assistant Name Role Phone Hayley Ni MD Primary Care Provider Surgical History Surgery Date Site/Laterality Comments OTHER SURGICAL HISTORY PROCEDURE: [place] THORACOSCOPY W/LOBECTOMY SINGLE LOBE; COMMENT: right upper lobectomy October 2020 Medical History Medical History Date Comments Tobacco abuse 07/05/2012 DX:Tobacco abuse Unspecified transient cerebr al ischemia 07/05/2012 DX:Unspecified transient cer ebral ischemia Cancer of upper lobe of righ t lung (CMS/HCC) DX:Cancer of upper lobe of r ight lung (HCC) A-fib ([facility]/HCC) DX:A-fib (HCC) Respiratory failure 04/02/2022 DX:Respirato ry failure ([facility]); COMMENT: back to [...] Upcoming Encounters Date Type Department Care Team ([facility] st Contact Info) Description 10/10/2024 3:00 PM EDT Appointment [facility] CT Scan [address] [place] [phone] 10/17/2024 11:00 AM EDT Office Visit Thoracic Surgery - [place] [address] [place] [address] Rebekah Herman PA [address] [facility] [address] [place] [address] Health Maintenance Due Date Last Done Comments [...] age to complete this topic Insurance MEDICARE [facility] Care Teams Esl Instructional Assistant Relationship Specialty Start Date End Date Hayley Ni MD [address] [place] [address] PCP - General 11/10/23
== END 2024-09-03 14:48 | disposition home or self-care (01) ==
LOC: HO.HPS 13:59
PROVIDERS: PCP Internal Medicine; Visit Provider Hospitalist
DX: J44.9 Chronic obstructive pulmonary disease, unspecified (principal); C34.90 Malignant neoplasm of unspecified part of unspecified bronchus or lung; G47.33 Obstructive sleep apnea (adult) (pediatric); J44.1 Chronic obstructive pulmonary disease with (acute) exacerbation; J22 Unspecified acute lower respiratory infection
CPT/HCPCS: 99214; G2211

== ENCOUNTER → 2024-09-03 13:58 | Outpatient (BNVA) | payer MEDICARE, SELFPAY | PROVIDERS: PCP Internal Medicine; Visit Provider Hospitalist | DX: J44.1 Chronic obstructive pulmonary disease with (acute) exacerbation (principal); J22 Unspecified acute lower respiratory infection; C34.90 Malignant neoplasm of unspecified part of unspecified bronchus or lung; Z87.891 Personal history of nicotine dependence | CPT/HCPCS: 99212 ==

== ENCOUNTER 2024-09-09 12:11 | Outpatient (REF) | payer MEDICARE, SELFPAY ==
[2024-09-09 13:51] LABS: MANUAL DIFF FLAG NO
--- OUTSIDE RECORDS SUMMARY | 2024-09-09 13:52 | XMS_ITS | Clinical Summary ---
Author Organization [facility] Address [address] [place] [address] Phone Care Team Providers Care Cutting Table Operator Name Role Phone Hayley Ni MD Primary Care Provider Surgical History Surgery Date Site/Laterality Comments OTHER SURGICAL HISTORY PROCEDURE: [place] THORACOSCOPY W/LOBECTOMY SINGLE LOBE; COMMENT: right upper lobectomy October 2020 Medical History Medical History Date Comments Tobacco abuse 07/05/2012 DX:Tobacco abuse Unspecified transient cerebr al ischemia 07/05/2012 DX:Unspecified transient cer ebral ischemia Cancer of upper lobe of righ t lung (CMS/HCC) DX:Cancer of upper lobe of r ight lung (HCC) A-fib ([facility]/HCC) DX:A-fib (HCC) Respiratory failure 04/02/2022 DX:Respirato ry failure ([facility]); COMMENT: back to back grand mals [...] Upcoming Encounters Date Type Department Care Team ([facility] st Contact Info) Description 10/10/2024 3:[address] [facility] CT Scan [address] [place] [phone] 10/17/2024 11:00 AM EDT Office Visit Thoracic Surgery - [place] [address] [facility] [address] [place] [address] Rebekah Herman PA [address] [facility], [address] [place] [address] Health Maintenance Due Date Last Done Comments [...] age to complete this topic Insurance MEDICARE [facility] Care Teams Cutting Table Operator Relationship Specialty Start Date End Date Hayley Ni MD [address] [place] [address] PCP - General 11/10/23
--- OUTSIDE RECORDS SUMMARY | 2024-09-09 13:53 | XMS_ITS | Patient Health Record ---
Author Organization [facility] Address [address] [place] [address] Care Team Providers Care Sheet Metal Technician Name Role Phone Abigail Em MD Primary Care Provider Noah Hummel [phone] Allergies Allergen (clinical drug ingredient) Drug/Non Drug [...] Problem Status W/U Status Risk Notes Problem [id number] Encounter for screening for malignant neoplasm of colon (Z12.11) Active confirmed Problem 948465489 History of adenomatous polyp of colon (Z86.010) Active confirmed Problem Nausea and vomiting (36841050) Nausea with vomiting, unspecified (R11.2) Active confirmed Problem 165348513 Gastroesophageal reflux disease without esophagitis (K21.9) Active confirmed Problem 27090605 Dysphagia, unspecified type (R13.10) Active confirmed Problem Acute diarrhea (074656897) Acute diarrhea (R19.7) Active confirmed Plan Of [...] Date MEDICARE OF [place] [address] [facility] [id number] [id number] VJ MCGUIRE Self - patient is the insured [employer] ATTN CLAIMS [address] [place] [address] [phone] [id number] VJ MCGUIRE Self - patient is [...] some sigmoid diverticulosis and internal hemorrhoids Denies [place],CVA,DM,renal disease Hyperlipidemia Anxiety since 08/2011 IBS-EGD with normal duodenal biopsies in 2012 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 during the day; going for a sleep study as of the 11/2019 OV to check for sleep apnea Pneumonia in 09/2015--at [facility] Hypertension Grand mal seizure 02/2020 at [facility] Atrial fibrillation with a l oop [...]
[2024-09-09 13:54] LABS: Basophils Percent Auto 0.6 % (0-2); Eosinophils Absolute Auto 0.2 X10*3/uL (0.0-0.4); Eosinophils Percent Auto 2.2 % (0-4); Hematocrit 37.1 % (37.0-47.0); Hemoglobin 12.1 g/dl (12.0-16.0); Imm Gran Abs Auto 0.03 X10*3/uL (0.00-0.03); Imm Gran Pct Auto 0.4 % (0.0-0.4); Lymphocytes Absolute Auto 0.7 X10*3/uL (1.2-4.9); Lymphocytes Percent Auto 10.9 % (20-40); Mean Corpuscular HGB Conc 32.6 g/dl (31.0-35.0); Mean Corpuscular Hemoglobin 29.5 pg (27.0-33.0); Mean Corpuscular Volume 90.5 fL (80.0-98.0); Mean Platelet Volume 9.7 fL (9.4-12.3); Monocytes Absolute Auto 0.5 X10*3/uL (0.1-1.2); Monocytes Percent Auto 6.9 % (2-11); Neutrophils Absolute Auto 5.4 x10*3/uL (2.0-8.3); Platelet Count 259 X10*3/uL (160-400); Red Cell Distribution Width 13.6 % (11.0-16.0); White Blood Count 6.8 X10*3/uL (4.8-10.8)
[2024-09-09 14:31] LABS: Erythrocyte Sedimentation Rate 19 MM/HR (0-20)
[2024-09-10 19:13] LABS: IgA 239 mg/dL (70-320); IgG 788 mg/dL (600-1540); IgM 75 mg/dL (50-300)
[2024-09-10 20:59] LABS: CRP High Sensitivity 6.7 mg/L
[2024-09-23 12:03] LABS: Immunoglobulin E 10 kU/L (<OR=114)
== END 2024-09-09 12:12 | disposition home or self-care (01) ==
LOC: HO.HMGCLDS 12:11
PROVIDERS: PCP Internal Medicine; Visit Provider Hospitalist
DX: J22 Unspecified acute lower respiratory infection (principal)
CPT/HCPCS: 36415; 82784; 82785; 85025; 85652; 86141

== ENCOUNTER 2024-09-11 13:51 | Outpatient (REF) | payer MEDICARE, SELFPAY ==
--- OUTSIDE RECORDS SUMMARY | 2024-09-11 17:32 | XMS_ITS | Clinical Summary ---
Author Organization [facility] Address [address] [place] [address] Phone Care Team Providers Care Campground Caretaker Name Role Phone Hayley Ni MD Primary Care Provider Surgical History Surgery Date Site/Laterality Comments OTHER SURGICAL HISTORY PROCEDURE: [place] THORACOSCOPY W/LOBECTOMY SINGLE LOBE; COMMENT: right upper lobectomy October 2020 Medical History Medical History Date Comments Tobacco abuse 07/05/2012 DX:Tobacco abuse Unspecified transient cerebr al ischemia 07/05/2012 DX:Unspecified transient cer ebral ischemia Cancer of upper lobe of righ t lung (CMS/HCC) DX:Cancer of upper lobe of r ight lung (HCC) A-fib ([facility]/HCC) DX:A-fib (HCC) Respiratory failure 04/02/2022 DX:Respirato ry failure ([facility]); COMMENT: back to back grand [...] Upcoming Encounters Date Type Department Care Team ([facility] st Contact Info) Description 10/10/2024 3:00 PM EDT Appointment [facility] CT Scan [address] [place] [phone] 10/17/2024 11:00 AM EDT Office Visit Thoracic Surgery - [place] [address] [facility] [address] [place] [address] Rebekah Herman PA [address] [facility], [address] [place] [address] Health Maintenance Due Date Last Done Comments [...] to complete this topic Insurance MEDICARE [facility] Care Teams Campground Caretaker Relationship Specialty Start Date End Date Hayley Ni MD [address] [place] [address] PCP - General 11/10/23
[2024-09-11 21:22] LABS: Influenza A PCR NEGATIVE (Negative); Influenza B PCR NEGATIVE (Negative); Resp Syncy Virus RNA Qual PCR NEGATIVE (Negative); SARS COV2 PCR INHOUSE NEGATIVE (Negative)
== END 2024-09-11 13:52 | disposition home or self-care (01) ==
LOC: HO.LAB 13:51
PROVIDERS: Physician Assistant; PCP Internal Medicine
DX: J22 Unspecified acute lower respiratory infection (principal); R09.89 Other specified symptoms and signs involving the circulatory and respiratory systems
CPT/HCPCS: 0241U; 99212

== ENCOUNTER 2024-09-11 13:51 | Outpatient (AMB) | payer MEDICARE, SELFPAY ==
--- NOTE | 2024-09-11 14:18 | AM.OFFWIN_ITS ---
Intake Vital Signs 09/11/24 14:28 Weight 142 lb BP 136/80 Blood Pressure Location Lt brachial Position Sitting Pulse 66 Pulse Source Pulse Oximeter Temp 97.9 F Temp Source Oral Pulse Oximetry (%) 93 Oxygen Delivery Method Room Air Intake Visit Reasons: EP upper respiratory Intake Note: Patient here for cough and chest pain that has been present since over the weekend. Patient Tobacco Use Status: Former Tobacco user Allergies bupropion [From Wellbutrin] Allergy (Verified 09/11/24 14:29) Chest Pain ciprofloxacin Allergy (Verified 09/11/24 14:29) Chest Pain IV/IM prednisone Allergy (Uncoded 09/11/24 14:29) Seizure Do you need a note to return to daycare/school/sports/work: No HPI HPI Comments History of Present Illness Details History - The patient is a 69-year-old female wi th past med hx of COPD on 2.5L at home presenting with shortness of breath and a significant history of respiratory issues. - The onset of cough and shortness of br eath began approximately four days ago and is possibly associated with a new respiratory infection, considering the multiple family history of atypical pneumonia. - She experienced a significant drop in oxygen saturation despite utilizing supplemental oxygen at home, which improved slowly with bronchodilator use but it took 40mins for pt's oxygen sat to go from 80% to 90%. - The patient reports intermittent blood tinged sputum, headaches and some neck pain but no fevers. - Sees [facility] Physical Exam General: Cooperative, healthy appearing, comfortable and no acute distress Orientation/consciousness: Patient oriented x3 Limitations: No limitations Head: Normal to inspection Ears: Hearing grossly normal bilaterally, external ears normal and TM's normal bilaterally Nose: Normal external nose present, Normal nares present and No nasal discharge present Face and sinus: Normal facial exam and Yes sinuses nontender Mouth: Normal oral and palatal mucosa present and moist mucous membranes Throat: Yes tonsils normal, Yes uvula midline. Posterior oropharynx erythema Eyes: Appearance normal, both eyes and all related structures Neck: Sore neck, possibly due to glands Respiratory: Clear but dim to auscultation bilaterally, very slight exp wheeze. Normal respiratory effort, able to speak in complete sentences, Actively coughing, no respiratory distress, not tachypneic, no tripod positioning and no use of accessory muscles. Cardiovascular: Regular rate and rhythm. Normal S1 and S2 Skin: No rashes or lesions noted Neuro: Patient oriented x3 Extremities: Normal to inspection and Yes no clubbing, cyanosis or edema PFSH Medical History History of lung cancer Breast mass, right COPD (chronic obstructive pulmonary disease) Dyslipidemia History of adenomatous polyp of colon Hx of TIA (transient ischemic attack) and stroke History of seizure disorder Achalasia of esophagus Osteoporosis HTN (hypertension) KRISTEN on CPAP Asthma-COPD overlap syndrome GERD (gastroesophageal reflux disease) Surgical History S/P cardiac catheterization S/P partial lobectomy of lung H/O wrist surgery History of cholecystectomy Family History Mother Small cell lung cancer Father Stomach cancer Brother Diabetes Throat cancer Social History Household Members: Spouse and Children Housing: House Do you presently have visiting nurse or other home services: No Alcohol intake: current Alcohol intake frequency: does not drink Patient Tobacco Use Status: Former Tobacco user Years Smoked: 30 +/- e-Cigarette/Vaping Use: Never Used Substance Use Type: Marijuana Advance Directives Date on File: 04/21/22 service: No Current occupational status: retired Cognitive needs: No Hearing needs: No Vision needs: Yes Review of Systems Const All systems reviewed & are unremarkable except as noted in HPI and below Physical Exam Vital Signs: Last Vital Signs Temp 97.9 F 09/11/24 14:28 Pulse 66 09/11/24 14:28 BP 136/80 09/11/24 14:28 Pulse Ox 93 09/11/24 14:28 Oxygen Delivery Method Room Air 09/11/24 14:28 Assessment & Plan Assessment & Plan (1) Lower respiratory infection (e.g., bronchitis, pneumonia, pneumonitis, pulmonitis): Code(s): J22 - Unspecified acute lower respiratory infection Plan: O2 sat 93% on RA, pt well appearing and lungs dim on exam. The management plan for today's visit focuses on addressing the acute respiratory exacerbation of the patient's COPD and the suspected pneumonia-like symptoms. Prednisone 50 mg x 5d has been prescribed due to its potent anti-inflammatory effects to aid in symptomatic improvement of the airflow. Doxy was prescribed however pt was educated that if viral testing comes back positive, to hold off on taking it. Additionally, Tessalon Perles are recommended to suppress the severe cough she has been experiencing. The nebulizer is to be utilized two or three times a day to enhance airway patency and stabilize oxygenation levels, reducing further exacerbation findings. Follow-up instructions were discussed based on potential diagnostic confirmation and monitoring if symptoms worsen or fail to resolve with the treatment administered. Patient was informed and verbally consented to the use of an ambient scribe for clinic note documentation during this visit Orders: Orders SARS-CoV2/FLU/RSV Today R09.89 - Other specified symptoms and signs involving the circulatory and respiratory systems Medications: New prednisone 50 mg PO QAM 5 tabs 0RF benzonatate 200 mg PO BEDTIME PRN 10 caps 0RF cough doxycycline hyclate 100 mg PO BID 14 tabs 0RF Coding Level of Care Code Est Pt Level 3 (47521) Diagnoses Lower respiratory infection (e.g., bronchitis, pneumonia, pneumonitis, pulmonitis) J22
[2024-09-11 14:28] VITALS: BP 136/80; PULSE 66; TEMP 36.6; O2SAT 93
--- OUTSIDE RECORDS SUMMARY | 2024-09-11 16:34 | XMS_ITS | Clinical Summary ---
Author Organization [facility] Address [address] [place] [address] Phone Care Team Providers Care Entry Level Account Manager Name Role Phone Hayley Ni MD Primary Care Provider Surgical History Surgery Date Site/Laterality Comments OTHER SURGICAL HISTORY PROCEDURE: IN THORACOSCOPY W/LOBECTOMY SINGLE LOBE; COMMENT: right upper lobectomy October 2020 Medical History Medical History Date Comments Tobacco abuse 07/05/2012 DX:Tobacco abuse Unspecified transient cerebr al ischemia 07/05/2012 DX:Unspecified transient cer ebral ischemia Cancer of upper lobe of righ t lung (CMS/HCC) DX:Cancer of upper lobe of r ight lung (HCC) A-fib ([facility]/HCC) DX:A-fib (HCC) Respiratory failure 04/02/2022 DX:Respirato ry failure ([facility]); COMMENT: back to back grand mals Family [...] Upcoming Encounters Date Type Department Care Team ([facility] st Contact Info) Description 10/10/2024 3:00 PM EDT Appointment [facility] CT Scan [address] [place] [id number] 10/17/2024 11:00 AM EDT Office Visit Thoracic Surgery - [place] [address] [facility] [address] [place] [address] Rebekah Herman PA [address] [facility], [address] [place] [address] Health Maintenance Due Date Last Done Comments Breast Cancer Screening 1955 COVID-19 Vaccine (#1) 1959 DTaP,Tdap,and Td Vaccines (1 - Tdap) 1973 Pneumococcal Vaccine: 50+ Ye ars (1 of 1 - PCV) 2004 Zoster Vaccines (1 of 2) 2004 RSV Immunization Adult Patie nts (1 - Risk 60-74 years 1-dose series) [...] to complete this topic Insurance MEDICARE [facility] Care Teams Entry Level Account Manager Relationship Specialty Start Date End Date Hayley Ni MD [address] [place] [address] PCP - General 11/10/23
--- OUTSIDE RECORDS SUMMARY | 2024-09-11 16:34 | XMS_ITS | Patient Health Record ---
Author Organization [facility] Address [address] [place] [address] Care Team Providers Care Executive Chairman Name Role Phone Abigail Em MD Primary Care Provider Noah Hummel [phone] Allergies Allergen (clinical drug ingredient) Drug/Non Drug [...] Problem Status W/U Status Risk Notes Problem 846705402 Encounter for screening for malignant neoplasm of colon (Z12.11) Active confirmed Problem 946466427 History of adenomatous polyp of colon (Z86.010) Active confirmed Problem Nausea and vomiting (58463207) Nausea with vomiting, unspecified (R11.2) Active confirmed Problem 514313162 Gastroesophageal reflux disease without esophagitis (K21.9) Active confirmed Problem 13488090 Dysphagia, unspecified type (R13.10) Active confirmed Problem Acute diarrhea (465190096) Acute diarrhea (R19.7) Active confirmed Plan Of [...] Date MEDICARE OF [place] [address] [facility] [id number] MCGUIRE Self - patient is the insured [employer] ATT[employer] CLAIMS [address] [place] [address] [id number] VJ MCGUIRE Self - patient is [...] some sigmoid diverticulosis and internal hemorrhoids Denies [place],CVA,DM,renal disease Hyperlipidemia Anxiety since 08/2011 IBS-EGD with normal duodenal biopsies in 2012 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 during the day; going for a sleep study as of the 11/2019 OV to check for sleep apnea Pneumonia in 09/2015--at [facility] Hypertension Grand mal seizure 02/2020 at [facility] Atrial fibrillation with a l [...]
== END 2024-09-11 15:34 | disposition home or self-care (01) ==
PROVIDERS: PCP Internal Medicine; Visit Provider Physician Assistant
DX: J22 Unspecified acute lower respiratory infection (principal)

== ENCOUNTER 2024-09-19 08:46 | Outpatient (AMB) | payer MEDICARE, SELFPAY ==
--- NOTE | 2024-09-19 08:50 | MHC.OFFVIS ---
Vital Signs 09/19/24 08:52 Height 5 ft 6 in Weight 139 lb BMI 22.4 BP 135/57 L Blood Pressure Location Lt brachial Position Sitting Pulse 77 Pulse Oximetry (%) 97 Oxygen Delivery Method Room Air Intake Visit Reasons: follow up Cricopharyngeal achalasia Intake Note: Patient follow up for Achalasia of esophagus and CT scan result. Patient cc: nauseas, abdominal bloating, swallowing discomfort and constipation. 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 Accompanied by: Self / Same As Patient Allergies bupropion [From Wellbutrin] Allergy (Verified 09/19/24 08:50) Chest Pain ciprofloxacin Allergy (Verified 09/19/24 08:50) Chest Pain IV/IM prednisone Allergy (Uncoded 09/11/24 14:29) Seizure Medication List - Last Reconciled 09/19/24 by Nayely Lyn MD albuterol sulfate 90 mcg/actuation 2 puffs inhalation Q4H PRN benzonatate 200 mg PO BEDTIME PRN budesonide 0.5 mg (2 mL) inhalation DAILY 30 days diltiazem HCl ER 240 mg PO DAILY flecainide 100 mg PO Q12H smfwjsuzsok-fbfvlfrsr-xlbudmfs 200-62.5-25 mcg (Trelegy Ellipta) 1 inh inhalation DAILY 30 days hydrocortisone 2.5% 1 appl VT BID-QID PRN 10 days lamotrigine 100 mg PO BID levalbuterol HCl 1.25 mg (3 mL) inhalation BID 30 days nebulizers As directed omeprazole 40 mg PO BID@0630,1630 60 days Oxygen Home Use As directed prednisone 50 mg PO QAM rivaroxaban (Xarelto) 20 mg PO QPM HPI HPI follow up Cricopharyngeal achalasia: Details: GI clinic visit for this 69 YF for FU of dysphagia and abnormal barium swallow TODAY'S VISIT: Patient follow up for Achalasia of esophagus and CT scan result. Patient cc: nauseas, abdominal bloating, swallowing discomfort and constipation. Pt is accompanied by her Feels everything is pressing on her neck when she lays on her side. Managing dysphagia symptoms with chewing her food Taking pills slowly and drinks a lot of water in between. When she took the contrast for CT scan it flushed her out. Had a BM after [address] scan Cris was not working and has been Dulcolax 2 chewable tablet every day. Has a BM after a few days. Having a bad day today Lower abdominal and lower back is bothering her - feels like menstrual cramps x 3 days. Took prednisone and antibiotics (doxycycline) 2 weeks ago for a lung infection Denies any vaginal discharge. Has had multiple UTIs recently - does not think she has a UTI Denies fever or chills and getting episodes of sweating Has been careful with chewing. Had an episode of choking when she woke up Then she was able to clear her throat. Notes more trouble with swallowing pills than food and advised to take the pills with apple sauce. She was taking Zyrtec for PND at night and nothing during the day - advised to take non-drowsy formula during the day. She has no BM x 5 days, 6th day has 4-6 PAST VISITS Patient cc: abdominal discomfort, difficulty swallowing pill, between diarrhea and constipation. MBS results and speech pathologist recommendations were reviewed with the patient and her Denies any change in dysphagia Notes post nasal drip which aggravates her symptoms at night, Having trouble with the lower stomach. Nausea all day long - not keeping her from eating Constant lower abdominal pressure Denies improvement in abd pressure after she has a BM Has a BM daily and then no BM x 2 days. Takes Senna 1 pill every night and has a BM the following day. 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 Intermittent dysphagia to solids and liquids for the past year Seen by Dr Maldonado - had a barium study and advised to fu with Dr Hargrove. Hx of heartburn x 30 years and takes Omeprazole 40 mg twice daily Patient denies recent change in appetite or weight. Notes constipation alternating with diarrhea. Has 3-4 episodes of uncontrolled diarrhea every 6 weeks and unable to leave the house - lasts for 3-4 days. Treated with Pelvic floor exercises without improvement in symptoms. Can be constipated with no BM for 3-5 days. Tried taking different medications without relief. Drinks a lot of water and gatorade Patient has asthma, emphysema and is status post removal of for Stage 1 lung cancer in 2020 She is on Home O2 at night and prn during the day On Xarelto for AF Pt denies a hx of sleep apnea - had a sleep study Denies problems with anesthesia in the past. Patient denies known family history of colon polyps, colon cancer. Family hx is positive for esophageal and stomach cancer (Dad, two paternal uncles, Pat LIU). Mat Liu had thyroid cancer. 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 Trace laryngeal penetration with thin barium. No subglottic aspiration was observed. 2. Moderate cricopharyngeal achalasia. SPEECH THERAPY ASSESSMENT: This exam was conducted by the radiologist and the speech pathologist. Patient was standing for lateral view and was able to self-feed without difficulty. She trialed thin (via individual and rapid straw sips), puree, and regular solid consistencies. Note good tongue control with no premature posterior spilling. Mastication was timely and efficient. Mildly slowed posterior lingual motion. Trace lingual residue cleared with a dry swallow. Pharyngeal swallow trigger initiated as the bolus head reached the valleculae. No evidence of nasopharyngeal reflux. Partial laryngeal elevation with partial epiglottic inversion. Complete laryngeal vestibular closure with no evidence of aspiration or penetration during this exam. Partial distention and partial obstruction of flow through the pharyngoesophageal segment (PES) opening with some retrograde flow in the pharynx. Observed cricopharyngeal bar. Trace residue on the tongue base and the posterior pharyngeal wall cleared with dry swallows. Liquid Intake Recommendation: Thin Liquid Intake Strategies: Small Sips Dietary Recommendations: Regular Medication Administration: Whole with Liquid Please contact the pharmacy regarding appropriate crushable or liquid drug formulations that are available whenever modified delivery is recommended. Compensatory Strategies Recommended: Sitting Upright (90 deg), Double Swallow, Small Bites and Sips, Alternate Liquids/Solids, Rate of Ingestion Change Supervision during eating and or drinking: None Needed Recommendation for Speech Therapy: NA:Typical EvaluationText Comment: Intake Recommendations: Route: PO Diet Grade: Regular Liquid Consistencies: Thin Post-Study Functional Oral Intake Scale (FOIS): 7- Total oral intake with no restrictions Oral phase was overall unremarkable, with good lingual control, intact rotary chew, and adequate oral clearance. Noted cricopharyngeal achalasia and partial distention through the PES which may be contributing to patient?s symptoms of globus sensation. No evidence of aspiration or penetration during this exam. Patient was able to clear trace residue in the pharynx with dry swallows. Suggested Referrals: The patient might benefit from a referral to: Gastroenterology Indication for Referral: cricopharyngeal achalasia Therapy Recommendations: Speech therapy is not indicated at this time. Recommend patient continue on a regular texture diet with thin liquids. Discussed behavioral strategies with patient to promote clearance: Take small bites, chew food well, alternate with sips of liquid, dry swallows between bites, maintain upright position while eating/drinking and for at least 30 minutes afterwards. Patient verbalized understanding and denied having any questions at this time. Advised patient to continue monitoring her dysphagia. If there are any changes or worsening of symptoms, she may benefit from a repeat-assessment. Prognosis for Improvement: The prognosis for the patient to meet nutritional needs by mouth is good based on degree of impairment. Clinician - Supplemental, Miscellaneous Communication: It is important to note MBSS objective studies are snapshots in time and Patient function might vary with factors such as time of day or concomitant medical conditions. For this reason, the final treatment plan for this patient should rest with their medical care team. Additional recommendations should be considered with the totality of the Patient in mind. 01/2023 BARIUM SWALLOW SHOWED: 1. Mild laryngeal penetration on thick barium identified, without extension to the true cords. No subglottic aspiration. 2. Mild to moderate cricopharyngeal achalasia. 3. Episodic gastroesophageal reflux to the level of the aortic arch. 4. Small to moderate sized type I hiatus hernia. 5. Somewhat patulous appearing esophagus without mucosal abnormality, stricture, or mass. Disordered esophageal motility consistent with moderate presbyesophagus. 6. Perceived gastric fold thickening, possibly artifactual due to inability of the patient to retain the effervescent granule gas, or possibly representing gastritis. No ulceration or mass evident. 7. Normal duodenal bulb and sweep. ENDOSCOPIC STUDIES: 2014 Colonoscopy was performed by Dr. Hargrove and a small tubular adenoma was removed from the transverse colon Had a stool Cologuard within the past 3 year - negative per patient. PAST GI HISTORY BY REVIEW OF MEDICAL RECORDS: Note by ALEXYS Page: 68-year-old female multiple comorbid illness- O2- dependent-SOB referred with achalasia Established with Dr. Hargrove-for many years-seen a couple months ago- referring to Barium- no further recommendations don't worry about it Spoke further with Dr. Hargrove- he declined procedure due to anesthesia risk- She is hypoxic-shewas told unless life threatening no procedures or anesthesia- Barium swallow 01/2023- Follows with ENT- Saw pcp-Dr. Ni-referred for 2nd opinion She has difficulty swallowing- 2020-lung CA-surgical- Dr. Farooq Espinosa-3 yr scan-no recurrence She was seen previously @ [facility]- pulmonary-Sz- DX-disorder- 2019- Appetite is good- no wt loss Colonoscopy- Dr. Hargrove Xarelto-AFIB Sz. disorder PFSH Medical History History of lung cancer Breast mass, right COPD (chronic obstructive pulmonary disease) Dyslipidemia History of adenomatous polyp of colon Hx of TIA (transient ischemic attack) and stroke History of seizure disorder Achalasia of esophagus Osteoporosis HTN (hypertension) KRISTEN on CPAP Asthma-COPD overlap syndrome GERD (gastroesophageal reflux disease) Surgical History S/P cardiac catheterization S/P partial lobectomy of lung H/O wrist surgery History of cholecystectomy Family History Mother Small cell lung cancer Father Stomach cancer Brother Diabetes Throat cancer Social History Household Members: Spouse and Children Housing: House Do you presently have visiting nurse or other home services: No Alcohol intake: current Alcohol intake frequency: does not drink Patient Tobacco Use Status: Former Tobacco user Years Smoked: 30 +/- e-Cigarette/Vaping Use: Never Used Substance Use Type: Marijuana Advance Directives Date on File: 04/21/22 service: No Current occupational status: retired Cognitive needs: No Hearing needs: No Vision needs: Yes Review of Systems Const All systems reviewed & are unremarkable except as noted in HPI and below Physical Exam Vital Signs: Oxygen Delivery Method Room Air 09/19/24 08:52 BMI result Body Mass Index 22.4 Const General: cooperative, comfortable and no acute distress Orientation/consciousness: patient oriented x3 Chest Chest palpation & inspection: normal inspection of the chest Resp Effort & Inspection: normal respiratory effort and prolonged expiratory phase Auscultation: no wheezes and diminished lung sounds Cardio Rate: regular rate Rhythm: regular rhythm Heart sounds: S1 normal heart sound present and S2 normal heart sound present GI Inspection: Yes normal to inspection Palpation (GI): Soft to palpation, nontender and No hepatosplenomegaly present Auscultation: normal bowel sounds Neuro General: patient oriented x3 Extrem General: Yes no pedal edema Assessment & Plan Assessment & Plan (1) Hiatal hernia: Code(s): K44.9 - Diaphragmatic hernia without obstruction or gangrene Category: Medical (2) Cricopharyngeal achalasia: Code(s): K22.0 - Achalasia of cardia Category: Medical (3) History of colon polyps: Comment: 2014 Colonoscopy was performed by Dr. Hargrove and a small tubular adenoma was removed from the transverse colon Had a stool Cologuard within the past 3 year - negative per patient. Pt considered high risk for anesthesia due to asthma-COPD overlap syndrome Code(s): Z86.0100 - Personal history of colon polyps, unspecified Category: Medical (4) Rectal bleeding: Code(s): K62.5 - Hemorrhage of anus and rectum Category: Medical Plan 69 YF with intermittent dysphagia to solids and liquids for the past year Dysphagia is likely a combination of esophageal motility disorder and crico-pharyngeal achalasia as seen on barium swallow Pt complains of constipation with no BM for 3-5 days and episodes of uncontrolled diarrhea every 6 weeks - she likely has chronic constipation followed by paradoxical diarrhea. Barium swallow results reviewed with the patient. She was advised that further evaluation with EGD can be high risk and not likely to provide longterm relief of dysphagia Pt was advised to: 1. Schedule a modified barium swallow with speech pathologist. 2. To take a soft diet, chew her food well and take it with sips of fluids 3. Take Senna 1 tablet or capsule at bedtime for a week and increase to 2 tab/capsules if needed 03/28/24 Having trouble with the lower stomach. Nausea all day long - not keeping her from eating Constant lower abdominal pressure Denies improvement in abd pressure after she has a BM Has a BM daily and then no BM x 2 days. Takes Senna 1 pill every night and has a BM the following day. ADDENDUM: KUB SHOWED: Nonobstructive bowel gas pattern. Moderate stool burden. Possible trace right pleural effusion. Pt called and KUB results reviewed. Advised to increase Senna to two tab at bedtime Take Miralax once a day every morning. Advised to call if no improvement in symptoms in 1-2 weeks. 05/02/24 Notes more trouble with swallowing pills than food and advised to take the pills with apple sauce. She was taking Zyrtec for PND at night and nothing during the day - advised to take non-drowsy formula during the day and nasal saline drops prn. Pt advised to increase senna to 2 pills twice a day. If she continues to have constipation she can start taking Linzess 145 mcg daily and discontinue the senna 08/28/[address] SCAN SHOWED: 1. Large amount of stool throughout the colon. Sigmoid diverticulosis without evidence of diverticulitis. 2. Small hiatal hernia. 09/19/[address] results reviewed. Pt advised to take probiotics and Lubiprostone 8 mcg twice daily Pt started taking apple cider vinegar daily To send me an email update via pt's portal 1-2 weeks after starting lubiprostone FU in 3 months Medications: New lubiprostone (Amitiza) 8 mcg PO BID 30 days 60 caps 3RF K59.09 - Other constipation Coding Level of Care Code Est Pt Level 4 (40771) Diagnoses Hiatal hernia K44.9 Cricopharyngeal achalasia K22.0 History of colon polyps Z86.0100 Rectal bleeding K62.5 Time Spent (min) 21
[2024-09-19 08:52] VITALS: BP 135/57; PULSE 77; O2SAT 97; BMI 22.4
--- OUTSIDE RECORDS SUMMARY | 2024-09-19 09:11 | XMS_ITS | Patient Health Record ---
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 Role Phone Abigail Em MD Primary Care Provider Noah Hummel [phone] Allergies Allergen (clinical drug ingredient) Drug/Non Drug [...] Problem Status W/U Status Risk Notes Problem [id number] Encounter for screening for malignant neoplasm of colon (Z12.11) Active confirmed Problem 983639791 History of adenomatous polyp of colon (Z86.010) Active confirmed Problem Nausea and vomiting (60886502) Nausea with vomiting, unspecified (R11.2) Active confirmed Problem 020575717 Gastroesophageal reflux disease without esophagitis (K21.9) Active confirmed Problem 24340068 Dysphagia, unspecified type (R13.10) Active confirmed Problem Acute diarrhea (256821436) Acute diarrhea (R19.7) Active confirmed Plan Of [...] Date MEDICARE OF [place] [address] [facility] [id number] [id number] VJ MCGUIRE Self - patient is the insured [employer] ATT[employer] CLAIMS [address] [place] [address] [id number] VJ MCGUIRE Self - patient is [...] some sigmoid diverticulosis and internal hemorrhoids Denies CO,CVA,DM,renal disease Hyperlipidemia Anxiety since 08/2011 IBS-EGD with normal duodenal biopsies in 2012 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 during the day; going for a sleep study as of the 11/2019 OV to check for sleep apnea Pneumonia in 09/2015--at [facility] Hypertension Grand mal seizure 02/2020 at [facility] Atrial fibrillation with a l [...]
--- OUTSIDE RECORDS SUMMARY | 2024-09-19 09:11 | XMS_ITS | Clinical Summary ---
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 Role Phone Hayley Ni MD Primary Care Provider [phone] Surgical History Surgery Date Site/Laterality Comments OTHER SURGICAL HISTORY PROCEDURE: [place] THORACOSCOPY W/LOBECTOMY SINGLE LOBE; COMMENT: right upper lobectomy October 2020 Medical History Medical History Date Comments Tobacco abuse 07/05/2012 DX:Tobacco abuse Unspecified transient cerebr al ischemia 07/05/2012 DX:Unspecified transient cer ebral ischemia Cancer of upper lobe of righ t lung (CMS/HCC V24, CMS/HCC V28) DX:Cancer of upper lobe of right lung (HCC) A-fib (CMS/HCC V24, CMS/HCC V28) DX:A-fib (HCC) Respiratory failure (CMS/HCC V24, CMS/HCC V28) 04/02/2022 DX:Respiratory failure (HCC) ; COMMENT: back to back grand mals Family [...] Info) Description 10/10/2024 3:00 PM EDT Appointment [facility] Scan [address] [place] [id number] 10/17/2024 11:00 AM EDT Office Visit Thoracic Surgery - [place] [address] [facility] [address] [place] [id number] Rebekah Herman PA [address] [facility], [address] [place] [address] Health Maintenance Due Date Last Done Comments [...] age to complete this topic Meningococcal B Vaccine Aged Out No l onger eligible based on patient's age to complete this topic RSV Immunization Patients Un phu 20 months Aged Out No longer eligible b ased on patient's age to complete this topic Varicella Vaccines Aged Out No longer eligible based on patient's age to complete this topic Insurance MEDICARE [facility] Care Teams Coffee Shop Manager Relationship Specialty Start Date End Date Hayley Ni MD [address] [place] [address] PCP - General 11/10/23
== END 2024-09-19 09:30 | disposition home or self-care (01) ==
LOC: HO.HGI 08:47
PROVIDERS: PCP Internal Medicine; Visit Provider Internal Medicine Gastroenterology
DX: K44.9 Diaphragmatic hernia without obstruction or gangrene (principal); K22.0 Achalasia of cardia; Z86.0100 Personal history of colon polyps, unspecified; K62.5 Hemorrhage of anus and rectum
CPT/HCPCS: 99214

== ENCOUNTER → 2024-09-19 08:46 | Outpatient (BNVA) | payer MEDICARE, SELFPAY | PROVIDERS: PCP Internal Medicine; Visit Provider Internal Medicine Gastroenterology | DX: K44.9 Diaphragmatic hernia without obstruction or gangrene (principal); K22.0 Achalasia of cardia; K62.5 Hemorrhage of anus and rectum; K59.09 Other constipation; Z86.0100 Personal history of colon polyps, unspecified | CPT/HCPCS: 99212 ==

== ENCOUNTER 2024-09-25 13:17 | Outpatient (AMB) | payer MEDICARE, SELFPAY ==
--- NOTE | 2024-09-25 13:32 | MHC.OFFVIS ---
Vital Signs 09/25/24 13:34 Height 5 ft 6 in Weight 147 lb 4.301 oz BMI 23.8 BP 110/52 L Blood Pressure Location Lt brachial Position Sitting Pulse 71 Pulse Source Monitor Intake Visit Reasons: 3 mth fu after stress echo (rs) Intake Note: 3 mth f/up after stress echo Pan Shover Required: No Accompanied by: Significant Other Allergies bupropion [From Wellbutrin] Allergy (Verified 09/19/24 08:50) Chest Pain ciprofloxacin Allergy (Verified 09/19/24 08:50) Chest Pain IV/IM prednisone Allergy (Uncoded 09/11/24 14:29) Seizure Medication List - Last Reconciled 09/25/24 by Sumeet Trevino MD albuterol sulfate 90 mcg/actuation 2 puffs inhalation Q4H PRN benzonatate 200 mg PO BEDTIME PRN budesonide 0.5 mg (2 mL) inhalation DAILY 30 days diltiazem HCl ER 240 mg PO DAILY flecainide 100 mg PO Q12H hiftvyshoxd-hxumiuxry-eqqvsqjp 200-62.5-25 mcg (Trelegy Ellipta) 1 inh inhalation DAILY 30 days hydrocortisone 2.5% 1 appl WI BID-QID PRN 10 days lamotrigine 100 mg PO BID levalbuterol HCl 1.25 mg (3 mL) inhalation BID 30 days lubiprostone (Amitiza) 8 mcg PO BID 30 days nebulizers As directed omeprazole 40 mg PO BID@0630,1630 60 days Oxygen Home Use As directed prednisone 50 mg PO QAM rivaroxaban (Xarelto) 20 mg PO QPM HPI Comments Details: 69-year-old female who is here for follow-up. She has background history of paroxysmal atrial fibrillation. She had chest pains when she had atrial fibrillation. She had precordial T-wave inversions. We tried to a stress test but she collapsed while exercising without any ECG changes and etiology was unclear. After discussion she was taken cardiac catheterization. Cardiac catheterization showed normal filling pressures without any significant coronary disease. After discussion she was started on flecainide. She is returning and denying any palpitations. She is saying she is short of breath and will be seeing her public relations specialist in a week. No fevers or chills. Otherwise stable clinically. 02/22/2023: She returns for follow-up. She is denying any chest discomfort. She has bronchitis and has been coughing. It appears she was receiving azithromycin for suppression of chronic bronchitis. Her recent QT interval was prolonged. She was taken off the azithromycin yesterday. EKG in the office is showing prolonged QT interval of 504 milliseconds. No dizziness or syncope. Otherwise taking medications regularly. 08/30/2023: She returns for follow-up. She has been doing well. No chest pain or shortness of breath. Her is undergoing aortic valve replacement at [facility]. Taking medications regularly and tolerating them well. 01/03/24: She is here for f/u. She has been doing good. She has occasional palpitations and overall has been stable. Taking meds regularly. 06/17/2024: She returns for follow-up. No palpitations and continues to be in sinus rhythm. She has been experiencing some dizziness and lightheadedness. Blood pressure is borderline and I have advised her to stop the hydrochlorothiazide. She experienced central chest pain lasting for 35 minutes few days ago at nighttime. This was self-limiting. Today she had similar central pain on a small area just behind the xiphoid. She said this was at rest. She did not have any exertional symptoms. Her ECG has been abnormal previously and continues to show nonspecific ST-T changes. 09/25/2024: Here for follow-up. She underwent stress testing and was able to exercise for 6 minutes on treadmill. Overall the stress echocardiogram was negative for ischemia at achieved workload. She returns and has been doing well. She has some palpitations off and on which lasts for few sec. She is saying these happen every day but these are fleeting and do not last long. Taking medications otherwise regularly. [facility] Medical History History of lung cancer Breast mass, right COPD (chronic obstructive pulmonary disease) Dyslipidemia History of adenomatous polyp of colon Hx of TIA (transient ischemic attack) and stroke History of seizure disorder Achalasia of esophagus Osteoporosis HTN (hypertension) KRISTEN on CPAP Asthma-COPD overlap syndrome GERD (gastroesophageal reflux disease) Surgical History S/P cardiac catheterization S/P partial lobectomy of lung H/O wrist surgery History of cholecystectomy Family History Mother Small cell lung cancer Father Stomach cancer Brother Diabetes Throat cancer Social History Household Members: Spouse and Children Housing: House Do you presently have visiting nurse or other home services: No Alcohol intake: current Alcohol intake frequency: does not drink Patient Tobacco Use Status: Former Tobacco user Years Smoked: 30 +/- e-Cigarette/Vaping Use: Never Used Substance Use Type: Marijuana Advance Directives Date on File: 04/21/22 service: No Current occupational status: retired Cognitive needs: No Hearing needs: No Vision needs: Yes Review of Systems Const Denies chills, Denies fatigue, Denies fever(s), Denies frequent falls, Denies weakness, Denies weight gain and Denies weight loss ENT Denies dizziness Card Denies chest pain, Denies leg edema, Denies lightheadedness, Denies palpitations, Denies dyspnea and Denies dyspnea on exertion Resp Denies cough, Denies dyspnea and Denies dyspnea on exertion GI Denies hematochezia Musc Denies abnormal gait, Denies muscle weakness, Denies numbness, Denies radiating pain into limb and Denies tingling Neuro Denies abnormal gait, Denies dizziness, Denies frequent falls, Denies numbness, Denies tingling and Denies weakness Endo Denies fatigue and Denies palpitations Physical Exam Vital Signs: Last Vital Signs Pulse 71 09/25/24 13:34 BP 110/52 L 09/25/24 13:34 BMI result Body Mass Index 23.8 GENERAL APPEARANCE: in no acute distress, pleasant. NECK: no carotid bruit, no jugular venous distention. SKIN: Poison ingrid over the arms and legs. HEART: no murmurs, regular rate and rhythm. LUNGS: clear to auscultation bilaterally. ABDOMEN: soft, nontender. EXTREMITIES: no edema. PERIPHERAL PULSES: equal. NEUROLOGIC: No gross deficits, AAO X 3 Office Procedures EKG Details: Sinus rhythm 71 beats per minute, normal axis, nonspecific STT wave changes, QTC 423 milliseconds. [id number], Complete Assessment & Plan Assessment & Plan (1) PAF (paroxysmal atrial fibrillation): Code(s): I48.0 - Paroxysmal atrial fibrillation Category: Medical (2) HTN (hypertension): Code(s): I10 - Essential (primary) hypertension Category: Medical Qualifiers: Hypertension type: primary hypertension Qualified Code(s): I10 - Essential (primary) hypertension Plan Pleasant 69 year female who is here for follow-up. Blood pressure is well controlled currently she will continue same medications for now. She has paroxysmal atrial fibrillation. This is well controlled with flecainide. When she had atrial fibrillation she had no symptoms. She has chronic history of palpitations which from her description lasts for few sec and improve on their own. These happen more frequently when she is under stress which she is under currently. We discussed about potential further testing in case she has change in frequency or duration of palpitations. She agrees with this plan and she will follow up with us in 6 months. In the meantime she will continue same medications. Thank you for allowing me to participate in the care of your patient. Please feel free to contact me if you have any questions. Coding Level of Care Code Est Pt Level 4 (45902) Diagnoses PAF (paroxysmal atrial fibrillation) I48.0 Primary hypertension I10 Hypertension type: primary hypertension CPT Codes EKG - CPT: 93749-Jpxyrulimsuqfollh, Complete ([id number])
[2024-09-25 13:34] VITALS: BP 110/52; PULSE 71; BMI 23.8
--- OUTSIDE RECORDS SUMMARY | 2024-09-25 15:46 | XMS_ITS | Clinical Summary ---
Author Organization [facility] Address [address] [place] [address] Phone Care Team Providers Care Surgical Dressing Maker Name Role Phone Hayley Ni MD Primary Care Provider Surgical History Surgery Date Site/Laterality Comments OTHER SURGICAL HISTORY PROCEDURE: CT THORACOSCOPY W/LOBECTOMY SINGLE LOBE; COMMENT: right upper [...] Info) Description 10/10/2024 3:00 PM EDT Appointment [facility] CT Scan [address] [place] [id number] 10/17/2024 11:00 AM EDT Office Visit Thoracic Surgery - [place] [address] [facility] [address] [place] [id number] Rebekah Herman PA [address] [facility], [address] [place] [address] Health Maintenance Due Date Last Done Comments [...] Annual BMP Blood Test 05/19/2022 Influenza Vaccine (Season Ended) 2025 HIB Vaccines Aged Out No longer eligi [...] age to complete this topic Insurance MEDICARE [facility] Care Teams Surgical Dressing Maker Relationship Specialty Start Date End Date Hayley Ni MD [address] [place] [address] PCP - General 11/10/23
--- OUTSIDE RECORDS SUMMARY | 2024-09-25 15:46 | XMS_ITS | Patient Health Record ---
Author Organization [facility] Address [address] [place] [address] Care Team Providers Care Water Quality Tester Name Role Phone Abigail Em MD Primary Care Provider Noah Hummel [phone] Allergies Allergen (clinical drug ingredient) Drug/Non Drug [...] Problem Status W/U Status Risk Notes Problem 508875814 Encounter for screening for malignant neoplasm of colon (Z12.11) Active confirmed Problem 509034193 History of adenomatous polyp of colon (Z86.010) Active confirmed Problem Nausea and vomiting (82964530) Nausea with vomiting, unspecified (R11.2) Active confirmed Problem 384932976 Gastroesophageal reflux disease without esophagitis (K21.9) Active confirmed Problem 96125807 Dysphagia, unspecified type (R13.10) Active confirmed Problem Acute diarrhea (052906696) Acute diarrhea (R19.7) Active confirmed Plan Of [...] Date MEDICARE OF [place] [address] [facility] [id number] [id number] VJ MCGUIRE Self - patient is the insured [employer] ATT[employer] CLAIMS [address] [place] [address] [phone] [id number] VJ MCGUIRE Self - patient is [...] some sigmoid diverticulosis and internal hemorrhoids Denies LA,CVA,DM,renal disease Hyperlipidemia Anxiety since 08/2011 IBS-EGD with normal duodenal biopsies in 2012 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 during the day; going for a sleep study as of the 11/2019 OV to check for sleep apnea Pneumonia in 09/2015--at [facility] Hypertension Grand mal seizure 02/2020 at [facility] Atrial fibrillation with a l oop [...]
== END 2024-09-25 13:52 | disposition home or self-care (01) ==
LOC: HO.HCS 13:18
PROVIDERS: PCP Internal Medicine; Visit Provider Internal Medicine Cardiovascular Disease
DX: I48.0 Paroxysmal atrial fibrillation (principal); I10 Essential (primary) hypertension
CPT/HCPCS: 93010; 99214

== ENCOUNTER → 2024-09-25 13:17 | Outpatient (BNVA) | payer MEDICARE, SELFPAY | PROVIDERS: PCP Internal Medicine; Visit Provider Internal Medicine Cardiovascular Disease | DX: I48.0 Paroxysmal atrial fibrillation (principal); I10 Essential (primary) hypertension; R94.31 Abnormal electrocardiogram [ECG] [EKG] | CPT/HCPCS: 93005; 99212 ==

== ENCOUNTER 2024-10-10 09:08 | Outpatient (REF) | payer MEDICARE, SELFPAY ==
--- NOTE | ~2024-10-10 | XR_ITS ---
EXAMINATION: XR CHEST 2 VIEWS HISTORY: R05.9 - Cough, unspecified COMPARISON: Comparison is made with the prior examination dated 07/27/2024. FINDINGS: PA and lateral views of the chest are submitted. The lungs are hyperinflated, consistent with COPD. There is chronic scarring bilaterally. No new focal airspace opacity is identified. There is no pleural effusion, pneumothorax, or pulmonary vascular congestion. The heart is normal in size. There is degenerative disc disease of the spine. XR/XR chest 2V IMPRESSION: COPD. No acute cardiopulmonary abnormality. Electronically signed by: Noah Uribe MD 10/10/2024 10:15 AM EDT
--- OUTSIDE RECORDS SUMMARY | 2024-10-10 10:50 | XMS_ITS | Clinical Summary ---
Author Organization [facility] Address [address] [place] [address] Phone Care Team Providers Care Setter Out Name Role Phone Hayley Ni MD Primary Care Provider Surgical History Surgery Date Site/Laterality Comments OTHER SURGICAL HISTORY PROCEDURE: [facility] THORACOS[facility] W/LOBECTOMY SINGLE LOBE; COMMENT: right upper [...] Info) Description 10/10/2024 3:00 PM EDT Appointment [facility] CT Scan [address] [place] [phone] 10/17/2024 11:00 AM EDT Office Visit Thoracic Surgery - [place] [address] [facility] [address] [place] [address] Rebekah Hreman PA [address] [facility], [address] [place] [address] Health Maintenance Due Date Last Done Comments [...] age to complete this topic Insurance MEDICARE [facility] Care Teams Setter Out Relationship Specialty Start Date End Date Hayley Ni MD [address] [place] [address] PCP - General 11/10/23
[2024-10-10 15:02] LABS: Adenovirus PCR Not Detected (Not Detect.); Bordetella parapertussis PCR Not Detected (Not Detect.); Bordetella pertussis PCR Not Detected (Not Detect.); Chlamydia pneumoniae PCR Not Detected (Not Detect.); Coronavirus 229E PCR Not Detected (Not Detect.); Coronavirus HKU1 PCR Not Detected (Not Detect.); Coronavirus NL63 PCR Not Detected (Not Detect.); Coronavirus OC43 PCR Not Detected (Not Detect.); Human metapneumovirus PCR Not Detected (Not Detect.); Influenza A PCR Not Detected (Not Detect.); Influenza B PCR Not Detected (Not Detect.); Mycoplasma pneumoniae PCR Not Detected (Not Detect.); Parainfluenza 1 PCR Not Detected (Not Detect.); Parainfluenza 2 PCR Not Detected (Not Detect.); Parainfluenza 3 PCR Not Detected (Not Detect.); Parainfluenza 4 PCR Not Detected (Not Detect.); RSV PCR Not Detected (Not Detect.); Rhino/Enterovirus PCR Not Detected (Not Detect.)
[2024-10-10 15:25] LABS: Influenza A H1 PCR Not Detected (Not Detect.); Influenza A H1-2009 PCR Not Detected (Not Detect.); Influenza A H3 PCR Not Detected (Not Detect.); SARS-CoV-2 PCR Not Detected (Not Detect.)
== END 2024-10-10 09:09 | disposition home or self-care (01) ==
LOC: HO.LAB 09:08
PROVIDERS: PCP Internal Medicine; Visit Provider Physician Assistant
DX: J06.9 Acute upper respiratory infection, unspecified (principal); R05.9 Cough, unspecified; N30.01 Acute cystitis with hematuria
CPT/HCPCS: 71046; 81003; 87633; 99212

== ENCOUNTER 2024-10-10 09:08 | Outpatient (AMB) | payer MEDICARE, SELFPAY ==
--- NOTE | 2024-10-10 09:17 | AM.OFFWIN_ITS ---
Intake Vital Signs 10/10/24 09:24 Weight 148 lb BP 128/70 Blood Pressure Location Lt brachial Position Sitting Pulse 84 Pulse Source Pulse Oximeter Temp 98.1 F Temp Source Oral Pulse Oximetry (%) 93 Oxygen Delivery Method Room Air Intake Visit Reasons: EP Upper respiratory/UTI Intake Note: patient here for frequent urination, burning sensation and bladder pressure that started Monday night. She also started yesterday with congestion, cough and chest and back soreness. Patient Tobacco Use Status: Former Tobacco user Allergies bupropion [From Wellbutrin] Allergy (Verified 10/10/24 09:25) Chest Pain ciprofloxacin Allergy (Verified 10/10/24 09:25) Chest Pain IV/IM prednisone Allergy (Uncoded 10/10/24 09:25) Seizure Do you need a note to return to daycare/school/sports/work: No HPI HPI Comments History of Present Illness Details History - The patient is a 69-year-old female pr esenting with symptoms attributable to an upper respiratory infection and urinary tract infection, experiencing a worsening course of persistent cough and congestion. - The respiratory complaint originated a pproximately two weeks prior, with acute worsening, exacerbating her baseline asthma and necessitating oxygen supplementation adjustments. - Urinary symptoms consistent with an in fection are characterized by dysuria and urinary frequency, managed partially with phenazopyridine (Azo), though without notable hematuria or back pain. - Existing medical conditions include br onchial asthma, managed with nebulizers previously, and significant deficiency in Vitamin D, necessitating high-dose supplementation after endocrinology evaluation. - She reports continual sinus congestion , suggesting potential allergy undertones, with no new ear or notable sinus infection indicators. Physical Exam General: Cooperative, healthy appearing, comfortable and no acute distress Orientation/consciousness: Patient oriented x3 Limitations: No limitations Head: Normal to inspection Ears: Hearing grossly normal bilaterally, external ears normal and TM's normal bilaterally Nose: Normal external nose present, Normal nares present and No nasal discharge present Face and sinus: Normal facial exam and Yes sinuses nontender Mouth: Normal oral and palatal mucosa present and moist mucous membranes Throat: Yes tonsils normal, Yes uvula midline. Posterior oropharynx erythema with cobblestoning Eyes: Appearance normal, both eyes and all related structures Neck: Normal visual inspection Respiratory: Clear but dim to auscultation bilaterally. Normal respiratory effort, able to speak in complete sentences, Actively coughing, no respiratory distress, not tachypneic, no tripod positioning and no use of accessory muscles. Cardiovascular: Regular rate and rhythm. Normal S1 and S2 Skin: No rashes or lesions noted Neuro: Patient oriented x3 Extremities: Normal to inspection and Yes no clubbing, cyanosis or edema PFSH Medical History History of lung cancer Breast mass, right COPD (chronic obstructive pulmonary disease) Dyslipidemia History of adenomatous polyp of colon Hx of TIA (transient ischemic attack) and stroke History of seizure disorder Achalasia of esophagus Osteoporosis HTN (hypertension) KRISTEN on CPAP Asthma-COPD overlap syndrome GERD (gastroesophageal reflux disease) Surgical History S/P cardiac catheterization S/P partial lobectomy of lung H/O wrist surgery History of cholecystectomy Family History Mother Small cell lung cancer Father Stomach cancer Brother Diabetes Throat cancer Social History Household Members: Spouse and Children Housing: House Do you presently have visiting nurse or other home services: No Alcohol intake: current Alcohol intake frequency: does not drink Patient Tobacco Use Status: Former Tobacco user Years Smoked: 30 +/- e-Cigarette/Vaping Use: Never Used Substance Use Type: Marijuana Advance Directives Date on File: 04/21/22 service: No Current occupational status: retired Cognitive needs: No Hearing needs: No Vision needs: Yes Review of Systems Const All systems reviewed & are unremarkable except as noted in HPI and below Physical Exam Vital Signs: Last Vital Signs Temp 98.1 F 10/10/24 09:24 Pulse 84 10/10/24 09:24 BP 128/70 10/10/24 09:24 Pulse Ox 93 10/10/24 09:24 Oxygen Delivery Method Room Air 10/10/24 09:24 Results AMB Urinalysis, Automated UA Leukoctes 500 Tonya/uL Last Edit by DELMA Plaza on 10/10/24 09: 34 UA Nitrite Positive Last Edit by [facility]MA [facility] on 10/10/24 09:34 UA Urobilinogen 8 mg/dL Last Edit by Oscar Raymond [facility] on 10/10/24 09: 34 UA Protein 30 mg/dL Last Edit by Oscar Raymond [facility] on 10/10/24 09:34 UA pH 5.0 [facility] on 10/10/24 09:34 UA Blood 80 Juan Francisco/uL Last Edit by Oscar Raymond [facility] on 10/10/24 09:34 UA Specific Iva 1.030 Last Edit by [facility] on 10/10/24 09:34 UA Ketone Positive Last Edit by LadanPaul Raymond [facility] on 10/10/24 09:34 UA Bilirubin 4 mg/dL Last Edit by LadanPaul Raymond [facility] on 10/10/24 09:34 UA Glucose 250 mg/dL Last Edit by LadanPaul Raymond [facility] on 10/10/24 09:34 Took AZO Results Reviewed Results Reviewed: Laboratory Last Values Urine pH (Auto) 5.0 10/10/24 09:31 Specific Iva (Auto) 1.030 10/10/24 09:31 Urine Protein (Auto) 30 mg/dL 10/10/24 09:31 Glucose (UA)(Auto) 250 mg/dL 10/10/24 09:31 Urine Ketones (Auto) Positive 10/10/24 09:31 Urine Blood (Auto) 80 Juan Francisco/uL 10/10/24 09:31 Urine Nitrite (Auto) Positive 10/10/24 09:31 Urine Bilirubin (Auto) 4 mg/dL 10/10/24 09:31 Urine Urobilinogen (Auto) 8 mg/dL 10/10/24 09:31 Leukocyte Esterase (Auto) 500 Tonya/uL 10/10/24 09:31 Assessment & Plan Assessment & Plan (1) UTI (urinary tract infection): Code(s): N39.0 - Urinary tract infection, site not specified Qualifiers: Hematuria presence: with hematuria Urinary tract infection type: acute cystitis Qualified Code(s): N30.01 - Acute cystitis with hematuria Plan: UA is difficult to interpret a patient took I azo which interferes with accurate results. We will send urine culture. The patient will commence Cefuroxime treatment for her urinary tract infection, which may additionally aid in treating any bacterial elements of her upper respiratory infection. Despite its interaction with omeprazole, temporary cessation is recommended with the potential alternative of calcium carbonate for gastric symptoms. Patient was informed and verbally consented to the use of an ambient scribe for clinic note documentation during this visit (2) URI, acute: Code(s): J06.9 - Acute upper respiratory infection, unspecified Plan: Vital signs are stable, patient well-appearing and lung sounds are dim but clear. To address the patient's respiratory symptoms, a chest x-ray will be obtained to rule out pneumonia. Recognizing a potential relationship between her symptoms and seasonal allergies, she will implement allergy management strategies. CXR showed no acute process, pending final read 3 Orders: Orders AMB Urinalysis Automated Today Z13.9 - Encounter for screening, unspecified Urine Culture Today N39.0 - Urinary tract infection, site not specified Resp Pathogen Panel - [facility] Today J06.9 - Acute upper respiratory infection, unspecified XR chest 2V Today R05.9 - Cough, unspecified Medications: New cefuroxime axetil 500 mg PO Q12H 10 tabs 0RF Discontinued omeprazole Discontinued Reason: Doctor's Order 40 mg PO BID@0630,1630 60 days 120 caps 3RF K22.0 - Achalasia of cardia Coding Level of Care Code Est Pt Level 4 (07527) Diagnoses Acute cystitis with hematuria N30.01 Hematuria presence: with hematuria Urinary tract infection type: acute cystitis URI, acute J06.9
[2024-10-10 09:24] VITALS: BP 128/70; PULSE 84; TEMP 36.7; O2SAT 93
--- OUTSIDE RECORDS SUMMARY | 2024-10-10 09:50 | XMS_ITS | Clinical Summary ---
Author Organization [facility] Address [address] [place] [address] Phone Care Team Providers Care Electronics Detail Draftsperson Name Role Phone Hayley Ni MD Primary Care Provider [phone] Surgical History Surgery Date Site/Laterality Comments OTHER [...] Info) Description 10/10/2024 3:00 PM EDT Appointment [facility] CT Scan [address] [place] [phone] 10/17/2024 11:00 AM EDT Office Visit Thoracic Surgery - [place] [address] [facility] [address] [place] [address] Rebekah Herman PA [address] [facility], [address] [place] [address] Health Maintenance Due Date Last Done Comments [...] age to complete this topic Insurance MEDICARE Member Subscriber Plan / Payer (Ef fective 2019-Present) Name:Zaynab Mistry Member ID:[id number] Relation to Subscriber:Self Name:Zaynab Mistry Subscriber ID:[id number] Payer ID:Not on file Group ID:Not on file Type:Medicare Address: [facility] [address] [place] [phone] [facility] Care Teams Electronics Detail Draftsperson Relationship Specialty Start Date End Date Hayley Ni MD [address] [place] [address] PCP - General 11/10/23
== END 2024-10-10 10:30 | disposition home or self-care (01) ==
PROVIDERS: PCP Internal Medicine; Visit Provider Physician Assistant
DX: N30.01 Acute cystitis with hematuria (principal); J06.9 Acute upper respiratory infection, unspecified; Z13.9 Encounter for screening, unspecified

== ENCOUNTER → 2024-10-10 10:00 | Outpatient (BNV) | payer MEDICARE, SELFPAY | PROVIDERS: PCP Internal Medicine; Visit Provider Radiology Diagnostic Radiology | DX: J44.9 Chronic obstructive pulmonary disease, unspecified (principal) | CPT/HCPCS: 71046 ==

== ENCOUNTER 2024-10-26 09:03 | Outpatient (REF) | payer MEDICARE, SELFPAY | END 2024-10-26 09:04 | disposition home or self-care (01) | LOC: HO.LAB 09:03 | PROVIDERS: PCP Internal Medicine | DX: N30.01 Acute cystitis with hematuria (principal) | CPT/HCPCS: 81003; 87086; 87088; 87186; 99212 ==

== ENCOUNTER 2024-10-26 09:03 | Outpatient (AMB) | payer MEDICARE, SELFPAY ==
--- OUTSIDE RECORDS SUMMARY | 2024-10-26 09:06 | XMS_ITS | Clinical Summary ---
Author Organization [facility] Address [address] [place] [address] Phone Care Team Providers Care Center Mgr Name Role Phone Hayley Ni MD Primary Care Provider Allergies No known active allergies Medications ipratropium-alb uteroL (DUONEB) 0.5-2.5 mg/3 mL nebulizer solution Inhale 1 capsule by mouth. Active albuterol HFA (PROAIR HFA ; PROVENTIL HFA ; VENTOLIN HFA) 90 mcg/actuation inhaler TAKE 2 PUFFS INTO THE LUNGS EVERY 4 HOURS NEEDED 3 Active dilTIAZem (TIAZAC) 240 mg 24 hr capsule 5 Active flecainide (TAMBOCOR) 100 mg tablet Take 1 tablet (100 mg total) by mouth every 12 (twelve) hours. 5 Active fluticasone-ume clidinium-vilan terol (Trelegy Ellipta) 100-62.5-25 mcg inhaler Inhale 1 puff (100 mcg total) by mouth daily. Active lamoTRIgine (LaMICtal) 100 mg tablet Take 1 tablet (100 mg total) by mouth daily. Active Xarelto 20 mg tablet Take 1 tablet (20 mg total) by mouth daily. 3 Active [place] Saline 0.65 % nasal spray 2 DRP INTRANASALLY 4 TIMES A DAY NEEDED FOR DRY NASAL PASSAGES FOR 30 DAYS 4 Active Active Problems Problem Noted Date Diagnosed Date History of lung cancer 10/18/2024 Assessment & Plan (10/18/2024 1:42 PM EDT): Ms. Mistry is a 69-year-old female who had a right upper lobectomy in October 2020 for stage Ia large cell carcinoma. The patient's most recent surveillance chest CT scan done in September 2024 shows no new or worsening pulmonary nodule or thoracic adenopathy to suggest recurrence or new disease. He does have stable scattered subcentimeter pulmonary nodules bilaterally up to 4 mm in size. We will continue with routine chest CT surveillance next of which will be in 1 year, September 2025. The patient will have a follow-up visit in the office after the scan. The patient is told to call the office should she have any questions or concerns prior to that next visit. Multiple pulmonary nodules 10/18/2024 Encounters Date Type Department Care Team Description 10/17/2024 11:00 AM EDT Office Visit Thoracic Surgery - [place] [address] [place] [phone] Rebekah Herman PA History of lung cancer (Primary Dx); Multiple pulmonary nodules 10/10/2024 2:42 PM EDT - 10/10/2024 11:59 PM EDT Hospital Encounter [facility] CT Scan [address] [place] [phone] History of lung cancer Discharge Disposition: Home or Self Care from Last 3 Months Surgical History Surgery Date Site/Laterality Comments OTHER SURGICAL HISTORY PROCEDURE: NE THORACOSCOPY W/LOBECTOMY SINGLE LOBE; COMMENT: right upper [...] Smoking Tobacco: Former Cigarettes Q uit: 06/12/2015 Tobacco Cessation:Counseling Given: Not Answered Comments Unknown Sex and Gender Information Value Date Recorded Sex Assigned at Not on file Legal Sex Female 3:06 AM EST Gender Identity Not on file Sexual Orientation Not on file Obstetrics History Last Filed Vital Signs Vital Sign Reading Time Taken Comments Blood Pressure 168/94 10/17/2024 10:49 AM EDT Pulse 79 10/17/2024 10:49 AM EDT Temperature 36.8 ??C (98.2 ??F) 10/17/2024 10:49 AM E DT Respiratory Rate 16 10/17/2024 10:49 AM EDT Oxygen Saturation 95% 10/17/2024 10:49 AM EDT Inhaled Oxygen Concentration - - Weight 65.9 kg (145 lb 4.8 oz) 10/17/2024 10:49 AM EDT Height 165.1 cm (5' 5 ) 10/17/2024 10:49 AM EDT Body Mass Index 24.18 10/17/2024 10:49 AM EDT Plan of Treatment Health Maintenance Due Date Last Done Comments Zoster Vaccines (1 of 2) 1973 RSV Immunization Adult Patients (1 - Risk 60-74 years 1-dose series) 2014 Breast Cancer Screening 05/28/2021 05/28/2019 COVID-19 Vaccine (2 - Pfizer risk series) 07/06/2021 06/15/2021 Depression Screening 05/15/2022 Falls Risk Assessment 05/15/2022 Lung Cancer Screening (Low Dose CT) 05/15/2022 Medicare Annual Wellness Visit 05/15/2022 Social Influencers of Health Screening 05/15/2022 Influenza Vaccine (Season Ended) 2025 04/28/2022, 03/01/2022, 05/31/2021, Additional history exists Colorectal Cancer Screening: FIT-DNA (Cologuard) 02/16/2025 02/16/2022 Cholesterol Screening (Lipid Panel) 06/16/2025 06/16/2020 Hypertension/CHF/CAD Annual BMP Blood Test 06/17/2025 06/17/2024, 11/10/2021, 02/26/2021, Additional history exists Osteoporosis Screening (Bone Density Screening) 05/28/2029 05/28/2019 DTaP,Tdap,and Td Vaccines (2 - Td or Tdap) 08/21/2029 08/22/2019 Hepatitis C Screening Completed 12/11/2018 Pneumococcal Vaccine: 50+ Years Completed 10/26/2023, 03/26/2020, 03/20/2019, Additional history exists HIB Vaccines Aged Out No longer eligi [...] to complete this topic RSV Immunization Patients Under 20 months Aged Out No longer eligible based on patient's age to complete this topic Varicella Vaccines Aged Out No longer eligible based on patient's age to complete this topic Procedures Procedure Name Priority Date/Time Associated Diagnosis Comments CT CHEST WO CONTRAST Routine 10/10/2024 2:55 PM EDT History of lung cancer from Last 3 Months Results * CT Chest wo Contrast (10/10/2024 2:55 PM EDT) Anatomical Region Laterality Modality Body Computed Tomogra phy 10/10/2024 3:04 PM EDT Impressions 10/10/2024 3:22 PM EDT Evidence of right upper lobectomy without evidence of recurrent disease. There are scattered nodules bilaterally. These appear unchanged and could be postinflammatory. ?? -------- FINAL REPORT -------- Dictated By: Jaun Linton Dictated Date: 10/10/2024 15:04 ET Assigned Physician: Jaun Linton Reviewed and Electronically Signed By: Jaun Linton Signed Date: 10/10/2024 15:22 ET Workstation ID: [id number] Transcribed By: Self Edit Transcribed Date: 10/10/2024 15:04 ET Narrative 10/10/2024 3:22 PM EDT EXAMINATION: CT CHEST WITHOUT CONTRAST CLINICAL INFORMATION: Personal history of lung cancer. ??Post right upper lobectomy. Surveillance COMPARISON: Portions of previous 10/26/23 ?? TECHNIQUE: Multidetector CT. Examination of the chest. Examination of the chest without IV contrast. Reformatting in the coronal and sagittal planes. DLP: 201 mGy-cm Dose optimization was performed including the use of low-dose iterative reconstruction technique with automatic exposure control based on patient size. Type of contrast: None Volume of IV contrast: None Volume of contrast discarded: 0 mL FINDINGS: LUNG: There is no suspicious abnormality of the trachea. There is no suspicious mass at the right upper lobectomy stump. Slightly worsened volume loss in the medial right middle lobe. There are stable micronodules in the right lower lobe. Bag Liner example; Oval nodule central aspect right lower lobe 10/10/24-0.4 cm (3/122) 10/26/23-0.4 cm (3/126) 10/22/21-0.4 cm (3/134) Pleural associated nodule lateral right lower lobe 10/10/24-0.4 cm (3/149) 10/26/23-0.4 cm (3/155) 10/22/21-0.4 cm (3/161) There are several small solid nodules some which appear to be associated with the inferior pulmonary ligament posterior right lower lobe (3/157), these appear stable. ?? MEDIASTINUM: ??There are no enlarged mediastinal or hilar lymph nodes. No suspicious abnormality of the esophagus. Small hiatal hernia. CARDIAC: The heart is not enlarged. No pericardial fluid or thickening ?? CORONARY CALCIFICATION: ??There are moderate coronary calcifications. VASCULAR: There is no thoracic aortic aneurysm. The central pulmonary arteries are prominent. ?? PLEURA: There is no pleural fluid or pneumothorax ?? AXILLA/CHEST WALL: There are no enlarged axillary lymph nodes. No chest wall mass demonstrated ?? VISUALIZED UPPER ABDOMEN: ??No suspicious abnormality on limited assessment of the visualized upper abdomen MUSCULOSKELETAL: No suspicious focal bony lesion. ?? Procedure Note Jaun Linton MD - 10/10/2024 EXAMINATION: CT CHEST WITHOUT CONTRAST CLINICAL INFORMATION: Personal history of lung cancer. Post right upper lobectomy.Surveillance COMPARISON: Portions of previous 10/26/23 TECHNIQUE: Multidetector CT. Examination of the chest. Examination of the chest without IV contrast. Reformatting in the coronal and sagittal planes. DLP: 201 mGy-cm Dose optimization was performed including the use of low-dose iterativereconstruction technique with automatic exposure control based on patientsize. Type of contrast: None Volume of IV contrast: None Volume of contrast discarded: 0 mL FINDINGS: LUNG: There is no suspicious abnormality of the trachea. There is nosuspicious mass at the right upper lobectomy stump. Slightly worsened volume loss in the medial right middle lobe. There are stable micronodules in the right lower lobe. Bag Liner example; Oval nodule central aspect right lower lobe 10/10/24-0.4 cm (3/122) 10/26/23-0.4 cm (3/126) 10/22/21-0.4 cm (3/134) Pleural associated nodule lateral right lower lobe 10/10/24-0.4 cm (3/149) 10/26/23-0.4 cm (3/155) 10/22/21-0.4 cm (3/161) There are several small solid nodules some which appear to be associatedwith the inferior pulmonary ligament posterior right lower lobe (3/157),these appear stable. MEDIASTINUM: There are no enlarged mediastinal or hilar lymph nodes. Nosuspicious abnormality of the esophagus. Small hiatal hernia. CARDIAC: The heart is not enlarged. No pericardial fluid or thickening CORONARY CALCIFICATION: There are moderate coronary calcifications. VASCULAR: There is no thoracic aortic aneurysm. The central pulmonaryarteries are prominent. PLEURA: There is no pleural fluid or pneumothorax AXILLA/CHEST WALL: There are no enlarged axillary lymph nodes. No chestwall mass demonstrated VISUALIZED UPPER ABDOMEN: No suspicious abnormality on limited assessmentof the visualized upper abdomen MUSCULOSKELETAL: No suspicious focal bony lesion. IMPRESSION: Evidence of right upper lobectomy without evidence of recurrent disease. There are scattered nodules bilaterally. These appear unchanged and couldbe postinflammatory. -------- FINAL REPORT -------- Dictated By: Jaun Linton Dictated Date: 10/10/2024 15:04 ET Assigned Physician: Jaun Linton Reviewed and Electronically Signed By: Jaun Linton Signed Date: 10/10/2024 15:22 ET Workstation ID: [id number] Transcribed By: Self Edit Transcribed Date: 10/10/2024 15:04 ET us Rebekah REARDON IMG CT PROCEDURES Final Resul t from Last 3 Months Insurance MEDICARE [facility] Care Teams Center Mgr Relationship Specialty Start Date End Date Hayley Ni MD [address] [place] [address] PCP - General 11/10/23
--- OUTSIDE RECORDS SUMMARY | 2024-10-26 09:06 | XMS_ITS | Patient Health Record ---
Author Organization [facility] Address [address] [place] [address] Care Team Providers Care [employer] Factory Worker Name Role Phone Abigail Em MD Primary Care Provider Noah Hummel [phone] Allergies Allergen (clinical drug ingredient) Drug/Non Drug [...] Problem Status W/U Status Risk Notes Problem 693325462 Encounter for screening for malignant neoplasm of colon (Z12.11) Active confirmed Problem 193284364 History of adenomatous polyp of colon (Z86.010) Active confirmed Problem Nausea and vomiting (49912532) Nausea with vomiting, unspecified (R11.2) Active confirmed Problem 548425404 Gastroesophageal reflux disease without esophagitis (K21.9) Active confirmed Problem 29635175 Dysphagia, unspecified type (R13.10) Active confirmed Problem Acute diarrhea (312219562) Acute diarrhea (R19.7) Active confirmed Plan Of [...] Date MEDICARE OF [place] [address] [facility] [place] [address] [phone] [id number] VJ MCGUIRE Self - patient is the insured [employer] ATT[employer] CLAIMS [address] [place] [address] [id number] 2 VJ MCGUIRE Self - patient is [...] some sigmoid diverticulosis and internal hemorrhoids Denies [place],CVA,DM,renal disease Hyperlipidemia Anxiety since 08/2011 IBS-EGD with normal duodenal biopsies in 2012 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 during the day; going for a sleep study as of the 11/2019 OV to check for sleep apnea Pneumonia in 09/2015--at [facility] Hypertension Grand mal seizure 02/2020 at [facility] Atrial fibrillation with a l oop [...]
[2024-10-26 09:08] VITALS: BP 142/60; PULSE 77; RESP 16; TEMP 36.7; O2SAT 94; BMI 23.7
--- NOTE | 2024-10-26 09:08 | AM.OFFWIN_ITS ---
Intake Vital Signs 10/26/24 09:08 Height 5 ft 6 in Weight 147 lb BMI 23.7 BP 142/60 H Blood Pressure Location Rt brachial Position Sitting Respiration 16 Pulse 77 Pulse Source Pulse Oximeter Temp 98.1 F Temp Source Oral Pulse Oximetry (%) 94 Intake Visit Reasons: EP-uti Intake Note: Pt is here today c/o ?UTI sx's recurrent Patient Tobacco Use Status: Former Tobacco user Allergies bupropion [From Wellbutrin] Allergy (Verified 10/26/24 09:08) Chest Pain ciprofloxacin Allergy (Verified 10/26/24 09:08) Chest Pain IV/IM prednisone Allergy (Uncoded 10/26/24 09:08) Seizure HPI HPI Comments History of Present Illness Details History of Present Illness - The patient is a 69-year-old female pr esenting with recurrent urinary tract infections. - She describes the onset of her current symptoms, including urinary pressure and frequent urination, beginning the morning of the visit. - The patient states she has experienced nine incidents of urinary tract infections over the past year, with two instances this month. - Treated successfully with Cefuroxime i n the past - The current episode lacks fever or obv ious hematuria but includes persistent back pain. Physical Exam General: Cooperative, healthy appearing, comfortable, no acute distress and well developed Orientation: Patient oriented x3 Limitations: No limitations Head: Normal to inspection Ears: Hearing grossly normal bilaterally Nose: Normal External nose present Face and sinus: Normal facial exam Eyes: Appearance normal, both eyes and all related structures Neck: Normal visual inspection and Yes full ROM Respiratory: Normal respiratory effort and able to speak in complete sentences. Skin: No rashes or lesions noted Neuro: Patient oriented x3, reports tingling in both hands Extremities: Normal to inspection, reports tingling in both hands [facility] Medical History History of lung cancer Breast mass, right COPD (chronic obstructive pulmonary disease) Dyslipidemia History of adenomatous polyp of colon Hx of TIA (transient ischemic attack) and stroke History of seizure disorder Achalasia of esophagus Osteoporosis HTN (hypertension) KRISTEN on CPAP Asthma-COPD overlap syndrome GERD (gastroesophageal reflux disease) Surgical History S/P cardiac catheterization S/P partial lobectomy of lung H/O wrist surgery History of cholecystectomy Family History Mother Small cell lung cancer Father Stomach cancer Brother Diabetes Throat cancer Social History Household Members: Spouse and Children Housing: House Do you presently have visiting nurse or other home services: No Alcohol intake: current Alcohol intake frequency: does not drink Patient Tobacco Use Status: Former Tobacco user Years Smoked: 30 +/- e-Cigarette/Vaping Use: Never Used Substance Use Type: Marijuana Advance Directives Date on File: 04/21/22 service: No Current occupational status: retired Cognitive needs: No Hearing needs: No Vision needs: Yes Review of Systems Const All systems reviewed & are unremarkable except as noted in HPI and below Physical Exam Vital Signs: Last Vital Signs Temp 98.1 F 10/26/24 09:08 Pulse 77 10/26/24 09:08 Resp 16 10/26/24 09:08 BP 142/60 H 10/26/24 09:08 Pulse Ox 94 10/26/24 09:08 BMI result Body Mass Index 23.7 Results AMB Urinalysis, Automated UA Leukoctes 500 Tonya/uL Last Edit by Gregoria Amaro CMA on 10/26/24 09:18 UA Nitrite Positive Last Edit by Gregoria Amaro CMA on 10/26/24 09:18 UA Urobilinogen 0.2 mg/dL Last Edit by Gregoria Amaro CMA on 10/26/24 09:18 UA Protein 15 mg/dL Last Edit by Gregoria Amaro CMA on 10/26/24 09:18 UA pH 6.0 Last Edit by Gregoria Amaro CMA on 10/26/24 09:18 UA Blood 200 Juan Francisco/uL Last Edit by Gregoria Amaro CMA on 10/26/24 09:18 UA Specific Mozelle 1.015 Last Edit by Gregoria Amaro CMA on 10/26/24 09:18 UA Ketone Negative Last Edit by Gregoria Amaro CMA on 10/26/24 09:18 UA Bilirubin 0 mg/dL Last Edit by Gregoria Amaro CMA on 10/26/24 09:18 UA Glucose 0 mg/dL Last Edit by Gregoria Amaro CMA on 10/26/24 09:18 Results Reviewed Results Reviewed: Laboratory Last Values Urine pH (Auto) 6.0 10/26/24 09:16 Specific Mozelle (Auto) 1.015 10/26/24 09:16 Urine Protein (Auto) 15 mg/dL 10/26/24 09:16 Glucose (UA)(Auto) 0 mg/dL 10/26/24 09:16 Urine Ketones (Auto) Negative 10/26/24 09:16 Urine Blood (Auto) 200 Juan Francisco/uL 10/26/24 09:16 Urine Nitrite (Auto) Positive 10/26/24 09:16 Urine Bilirubin (Auto) 0 mg/dL 10/26/24 09:16 Urine Urobilinogen (Auto) 0.2 mg/dL 10/26/24 09:16 Leukocyte Esterase (Auto) 500 Tonya/uL 10/26/24 09:16 Assessment & Plan Assessment & Plan (1) UTI (urinary tract infection): Code(s): N39.0 - Urinary tract infection, site not specified Qualifiers: Urinary tract infection type: acute cystitis Hematuria presence: with hematuria Qualified Code(s): N30.01 - Acute cystitis with hematuria Plan: UA 3+ leuks, pos nitrites, 3+ blood. The therapeutic approach involves administering cefuroxime to effectively manage the urinary tract infection. The urinalysis confirmed the presence of nitrites, supporting this treatment choice. Concurrently, symptomatic measures, including the use of jlgy-dim-sthgdwr analgesics like Azo for relief and increasing fluid intake, were advised. It was important to delay certain dcgz-wly-kjzcoai medication until after urinalysis testing to avoid result interference. Pt has an appt with her primary care provider this coming week to discuss recurrent UTI's. Patient was informed and verbally consented to the use of an ambient scribe for clinic note documentation during this visit. Orders: Orders AMB Urinalysis Automated Today Z13.9 - Encounter for screening, unspecified Urine Culture Today N39.0 - Urinary tract infection, site not specified Medications: New cefuroxime axetil 500 mg PO Q12H 10 tabs 0RF Coding Level of Care Code Est Pt Level 3 (67696) Diagnoses Acute cystitis with hematuria N30.01 Urinary tract infection type: acute cystitis Hematuria presence: with hematuria
== END 2024-10-26 10:46 | disposition home or self-care (01) ==
PROVIDERS: PCP Internal Medicine; Visit Provider Physician Assistant
DX: Z13.9 Encounter for screening, unspecified (principal); N30.01 Acute cystitis with hematuria

== ENCOUNTER 2024-10-29 08:19 | Outpatient (AMB) | payer MEDICARE, SELFPAY ==
--- OUTSIDE RECORDS SUMMARY | 2024-10-29 08:25 | XMS_ITS | Clinical Summary ---
Author Organization [facility] Address [address] [place] [address] Phone Care Team Providers Care Inspector And Sorter Name Role Phone Hayley Ni MD Primary [...] mg total) by mouth daily. 3 Active [place] Saline 0.65 % nasal spray 2 DRP [...] AM EDT Office Visit Thoracic Surgery - [place] [address] [facility] [address] [place] [phone] Rebekah Herman PA History of lung cancer (Primary Dx); Multiple pulmonary nodules 10/10/2024 2:42 PM EDT - 10/10/2024 11:59 PM EDT Hospital Encounter [facility] CT Scan [address] [place] [phone] History of lung cancer Discharge Disposition: Home [...] Signed Date: 10/10/2024 15:22 ET Workstation ID: [id number] Transcribed By: Self Edit Transcribed Date: 10/10/2024 [...] stable micronodules in the right lower lobe. 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 Regional Sales Leader example; Oval nodule central aspect right lower [...] Signed Date: 10/10/2024 15:22 ET Workstation ID: [id number] Transcribed By: Self Edit Transcribed Date: 10/10/2024 15:04 ET us Rebekah REARDON IMG CT PROCEDURES Final Resul t from Last 3 Months Insurance MEDICARE [facility] Care Teams Inspector And Sorter Relationship Specialty Start Date End Date Hayley Ni MD [address] [place] [address] PCP - General 11/10/23
--- OUTSIDE RECORDS SUMMARY | 2024-10-29 08:26 | XMS_ITS | Patient Health Record ---
Author Organization [facility] Address [address] [place] [address] Care Team Providers Care Estimate Clerk Name Role Phone Abigail Em MD Primary Care Provider Noah Hummel [phone] Allergies Allergen (clinical drug ingredient) Drug/Non Drug [...] Problem Status W/U Status Risk Notes Problem [id number] Encounter for screening for malignant neoplasm of colon (Z12.11) Active confirmed Problem 434489883 History of adenomatous polyp of colon (Z86.010) Active confirmed Problem Nausea and vomiting (94560140) Nausea with vomiting, unspecified (R11.2) Active confirmed Problem 964673255 Gastroesophageal reflux disease without esophagitis (K21.9) Active confirmed Problem 08251198 Dysphagia, unspecified type (R13.10) Active confirmed Problem Acute diarrhea (742113874) Acute diarrhea (R19.7) Active confirmed Plan Of [...] MEDICARE OF [place] [address] [facility] [place] [address] [id number] VJ MCGUIRE Self - patient is the insured [employer] ATTN CLAIMS [address] [place] [address] [id number] VJ MCGUIRE Self - patient is [...] some sigmoid diverticulosis and internal hemorrhoids Denies [place],CVA,DM,renal disease Hyperlipidemia Anxiety since 08/2011 IBS-EGD with normal duodenal biopsies in 2012 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 during the day; going for a sleep study as of the 11/2019 OV to check for sleep apnea Pneumonia in 09/2015--at [facility] Hypertension Grand mal seizure 02/2020 at [facility] Atrial fibrillation with a [...]
[2024-10-29 08:28] VITALS: BP 130/60; PULSE 72; RESP 18; TEMP 36.6; O2SAT 93; BMI 23.7
--- NOTE | 2024-10-29 08:28 | AM.OFFVISMDC ---
Intake Vital Signs 10/29/24 08:28 Height 5 ft 6 in Weight 147 lb BMI 23.7 BP 130/60 Blood Pressure Location Lt brachial Position Sitting Respiration 18 Pulse 72 Pulse Source Pulse Oximeter Temp 97.9 F Temp Source Oral Pulse Oximetry (%) 93 Oxygen Delivery Method Room Air Intake Visit Reasons: AWV Intake Note: Pt is here today for her AWV: Last mammogram 05/24/24, bone density scan 04/13/23 Allergies bupropion [From Wellbutrin] Allergy (Verified 10/29/24 08:30) Chest Pain ciprofloxacin Allergy (Verified 10/29/24 08:30) Chest Pain IV/IM prednisone Allergy (Uncoded 10/29/24 08:30) Seizure Medication List - Last Reconciled 10/29/24 by Hayley Ni MD albuterol sulfate 90 mcg/actuation 2 puffs inhalation Q4H PRN budesonide 0.5 mg (2 mL) inhalation DAILY 30 days calcium carbonate-vitamin D3 600 mg-20 mcg (800 unit) (Caltrate with Vitamin D3) 1 tab PO DAILY cefuroxime axetil 500 mg PO Q12H cholecalciferol (vitamin D3) 1,250 mcg PO QWEEK diltiazem HCl ER 240 mg PO DAILY flecainide 100 mg PO Q12H eyyxrxgxkpk-eyrbhjolj-gahfqlxk 200-62.5-25 mcg (Trelegy Ellipta) 1 inh inhalation DAILY 30 days hydrocortisone 2.5% 1 appl RI BID-QID PRN 10 days lamotrigine 100 mg PO BID levalbuterol HCl 1.25 mg (3 mL) inhalation BID 30 days nebulizers As directed omeprazole 40 mg PO BID Oxygen Home Use As directed rivaroxaban (Xarelto) 20 mg PO QPM HPI AWV HPI Details AWV ? 69-year-old lady with history of stage IA large cell CA right upper lobe status post right upper lobe lobectomy in October 2020, has asthma COPD overlap syndrome on home O2 followed by Dr. Redman, paroxysmal atrial fibrillation currently on Xarelto followed by Cardiology, has history of TIA and seizure disorder, followed by , has obstructive sleep apnea on CPAP, has achalasia of esophagus, followed by Dr. Lyn, already presents for her ? Annual Wellness Visit, initial visit.? She is up-to-date with her screening mammogram, done 05/24/2024 with negative findings, had a bone density scan done 04/13/2023 which showed osteoporosis in her left femoral neck and osteopenia in left femur and lumbar spine. No history of fracture. She had colonoscopy done in in the past, stay patient states that she had a tubular adenoma removed by Dr. Hargrove. Patient states that he would not repeat another colonoscopy due to her compromised lung function . She is now currently being seen by Dr. Lyn. She is up-to-date with her pneumonia vaccination and Tdap, gets yearly flu shot but missed last year's vaccine. Has not yet had her shingles vaccine or her RSV vaccination and does not want to get any further COVID booster vaccination. ? Medical / Social History Reviewed? Past Medical History ?Yes . ? [place] of Care / Care Team list updated ?Yes . ? Surgical/Hospitalization History ?Yes . ? Current Medications (including OTC and supplements) ?Yes . ? Family History ?Yes . ? Tobacco Control form ?Yes . ? AUDIT-C (Alcohol use) form ?Yes . ? Illicit drug use in Social History ?Yes . ? Current diagnosis of depression? ?No ? Appropriate PHQ2/PHQ9 completed ?Yes . ? Data entered by ?[employer] and reviewed by provider ? Fall Risk ? Fall History? Have you had any falls with injury in the past year? ?No . ? Have you had two or more falls in the past year? ?No . ? Fall Risk Assessment: ?No falls in the past year . ? HRA filled out by the patient, reviewed by Provider and scanned. ? AWV ? Balance? Romberg ?negative. ? Tandem walk ?Yes . ? Walk and Turn ?Yes . ? Rise from sit to stand ?Yes . ?Vision? Corrective lens ?Yes ? Vision screen ? Up-to-date, sees Dr. Priest at [facility] ?Hearing? Whisper test ?pass . ?Written Plan?Completed. See Patient Documents.? HPI Comments History of Present Illness Details 69-year-old lady here today complaining also of recurrent urinary tract infection . Recently seen at the walk-in clinic and was again treated for urinary tract infection which was her 2nd time this month. Has been having frequent UTI since January of this year. Does complain of stress urinary incontinence, use a panty liner regularly [facility] Medical History (Updated 10/29/24 @ 12:05 by Hayley Ni MD) Recurrent urinary tract infection History of lung cancer Dyslipidemia History of adenomatous polyp of colon Hx of TIA (transient ischemic attack) and stroke History of seizure disorder Achalasia of esophagus Osteoporosis HTN (hypertension) KRISTEN on CPAP Asthma-COPD overlap syndrome GERD (gastroesophageal reflux disease) Surgical History S/P cardiac catheterization S/P partial lobectomy of lung H/O wrist surgery History of cholecystectomy Family History Mother Small cell lung cancer Father Stomach cancer Brother Diabetes Throat cancer Social History Household Members: Spouse and Children Housing: House Do you presently have visiting nurse or other home services: No Alcohol intake: current Alcohol intake frequency: does not drink Patient Tobacco Use Status: Former Tobacco user Years Smoked: 30 +/- e-Cigarette/Vaping Use: Never Used Substance Use Type: Marijuana Advance Directives Date on File: 04/21/22 service: No Current occupational status: retired Cognitive needs: No Hearing needs: No Vision needs: Yes Questionnaire Medicare Wellness Checkup [age] What gender do you identify with?: female During the past 4 weeks, how much have you been bothered by emotional problems such as feeling anxious, depressed, irritable, sad or downhearted, and blue?: moderately During the past 4 weeks, has your physical & emotional health limited your social activities with family, friends, neighbors, or groups?: moderately During the past 4 weeks, how much bodily pain have you generally had?: moderate pain During the past 4 weeks, was someone available to help you if you needed & wanted help?: yes, as much as I wanted During the past 4 weeks, what was the hardest physical activity you could do for at least 2 minutes?: moderate Can you get to places out of walking distance without help? (For eg., can you travel alone on buses, taxis or drive your car?): No Can you go shopping for groceries or clothes without someone's help?: No Can you prepare your own meals?: Yes Can you do your housework without help?: No Because of any health problems, do you need the help of another person with your personal care needs such as eating, bathing, dressing or getting around the house?: No Can you handle your own money without help?: Yes During the past 4 weeks, how would you rate your health in general?: fair During the past 4 weeks how have things been going for you?: good & bad parts about equal Are you having difficulties driving your car?: not applicable, I don't use a car Do you always fasten your seat belt when you are in a car?: yes, usually During past 4 weeks, have you been bothered by the following: never: Sexual problems?, Trouble eating well?, Teeth or denture problems? and Problems using the telephone?, sometimes: Falling or dizzy when standing up and often: Tiredness or fatigue? Have you fallen 2 or more times in the past year?: Yes Are you afraid of falling?: Yes Are you a smoker?: no Do you exercise for about 20 minutes 3 or more times a week?: no, I usually do not exercise this much Have you been given information to help with the following?: no: Hazards in your house that might hurt you? and no: Keeping track of your medications? How often do you have trouble taking medicines the way you have been told to take them?: I always take medicine as prescribed How confident are you that you can control & manage most of your health problems?: somewhat confident What is your race?: White Mini Mental State Exam (MMSE) Orientation What is the (year) (season) (date) (day) (month)?: year (2024), season (Spring), date (10/29/2024), day (Monday) and month (October) Where are we (state) (county) (town or city) (hospital) (floor)?: state ([place]), county ([place]), town or city ([place]) and hospital/clinic ([facility]) Score Score: 9 Activity of Daily Living Bathing - sponge bath, tub bath or shower: receives no assistance (gets in/out by self, if usual bathing means Dressing - getting clothes from closets & drawers, including inner/outer garments & fasteners.: gets clothes & gets dressed without help, except for help tying shoes Toileting - going to the 'toilet room' for urine/bowel elimination & cleaning self/arranging clothes: goes to toilet room, cleans self, arranges clothes without help Transfer: moves in & out of bed and chair without help (may use support object) Continence: has occasional 'accidents' Feeding: feeds self without help Total Score: 0 Information obtained from: patient Using telephone: independent Traveling: independent Shopping: independent Preparing meals: independent Housework: independent Taking medicine: independent Managing money: independent PHQ-9 Over the last 2 weeks, how often have you been bothered by any of the following problems? 1. Little interest or pleasure in doing things: not at all 2. Feeling down, depressed, or hopeless: not at all 3. Trouble falling or staying asleep, or sleeping too much: several days 4. Feeling tired or having little energy: more than half the days 5. Poor appetite or overeating: not at all 6. Feeling bad about yourself - or that you are a failure or have let yourself or your family down: not at all 7. Trouble concentrating on things, such as reading the newspaper or watching television: more than half the days 8. Moving or speaking so slowly that other people could have noticed. Or the opposite - being so fidgety or restless that you have been moving around a lot more than usual: more than half the days 9. Thoughts that you would be better off or of hurting yourself in some way: not at all Total score: 7 Depression Screening Interpretation: Negative Depression Screening Done: Yes 87527 - PHQ-9 Billing: Yes Source: Developed by Drs. Noah Elizabeth, Samia Herzog, Salbador Donovan and colleagues, with an educational sonal from [employer]. Review of Systems Const All systems reviewed & are unremarkable except as noted in HPI and below Physical Exam Vital Signs: Last Vital Signs Temp 97.9 F 10/29/24 08:28 Pulse 72 10/29/24 08:28 Resp 18 10/29/24 08:28 BP 130/60 10/29/24 08:28 Pulse Ox 93 10/29/24 08:28 Oxygen Delivery Method Room Air 10/29/24 08:28 BMI result Body Mass Index 23.7 Const Other: Alert oriented x3, no acute distress noted ambulatory normal gait GI Inspection: Yes normal to inspection Palpation (GI): Soft to palpation, nontender and no guarding General: Yes no CVA tenderness Back/Spine/Pelvis Back: no CVA tenderness Assessment & Plan Assessment & Plan (1) Encounter for initial annual wellness visit (AWV) in Medicare patient: Code(s): Z00.00 - Encounter for general adult medical examination without abnormal findings Plan: Medical wellness checklist reviewed, discussed with patient and updated. (2) Recurrent urinary tract infection: Code(s): N39.0 - Urinary tract infection, site not specified Plan: Referred to urology for further evaluation management, has had approximately 6 urinary tract infections in the last 6 months (3) COPD (chronic obstructive pulmonary disease): Code(s): J44.9 - Chronic obstructive pulmonary disease, unspecified Qualifiers: COPD type: COPD with acute exacerbation Qualified Code(s): J44.1 - Chronic obstructive pulmonary disease with (acute) exacerbation Plan: Continue with Trelegy daily and albuterol inhaler as needed (4) Dyslipidemia: Code(s): E78.5 - Hyperlipidemia, unspecified Plan: Reinforced importance of following a low-cholesterol diet and getting regular exercise. (5) Hx of TIA (transient ischemic attack) and stroke: Code(s): Z86.73 - Personal history of transient ischemic attack (TIA), and cerebral infarction without residual deficits Plan: Currently on Xarelto 20 mg daily (6) Cricopharyngeal achalasia: Code(s): K22.0 - Achalasia of cardia Plan: Followed by GI clinic continue with omeprazole 80 mg twice a day.. Recommend patient continue on a regular texture diet with thin liquids. Discussed behavioral strategies with patient to promote clearance: Take small bites, chew food well, alternate with sips of liquid, dry swallows between bites, maintain upright position while eating/drinking and for at least 30 minutes afterwards. (7) Osteoporosis: Comment: Left hip Code(s): M81.0 - Age-related osteoporosis without current pathological fracture Qualifiers: Osteoporosis type: age-related Presence of current pathological fracture: without current pathological fracture Qualified Code(s): M81.0 - Age-related osteoporosis without current pathological fracture Plan: Declined treatment at present time, in the meantime advised to continue taking calcium and vitamin-D 3 supplements. No history of fractures (8) HTN (hypertension): Code(s): I10 - Essential (primary) hypertension Qualifiers: Hypertension type: primary hypertension Qualified Code(s): I10 - Essential (primary) hypertension Plan: Continue diltiazem 240 mg once a day (9) KRISTEN on CPAP: Code(s): G47.33 - Obstructive sleep apnea (adult) (pediatric) Plan: Continue with CPAP (10) Asthma-COPD overlap syndrome: Code(s): J44.9 - Chronic obstructive pulmonary disease, unspecified Plan: Currently on Trelegy Ellipta 1 inhalation daily and levalbuterol via nebulizer treatment as needed (11) PAF (paroxysmal atrial fibrillation): Code(s): I48.0 - Paroxysmal atrial fibrillation Plan: Currently on Xarelto 20 mg daily and Orders: Referrals Urology Referral N39.0 - Urinary tract infection, site not specified Quality Reporting (2019) Depression/Bipolar (159/160/161/177) PHQ-9: Total score: 7 Coding Level of Care Code Medicare First (G0438) Est Pt Level 3 (52824) Diagnoses Encounter for initial annual wellness visit (AWV) in Medicare patient Z00.00 Recurrent urinary tract infection N39.0 Chronic obstructive pulmonary disease with acute exacerbation J44.1 COPD type: COPD with acute exacerbation Dyslipidemia E78.5 Hx of TIA (transient ischemic attack) and stroke Z86.73 Cricopharyngeal achalasia K22.0 Age-related osteoporosis without current pathological fracture M81.0 Osteoporosis type: age-related Presence of current pathological fracture: without current pathological fracture Primary hypertension I10 Hypertension type: primary hypertension KRISTEN on CPAP G47.33 Asthma-COPD overlap syndrome J44.9 PAF (paroxysmal atrial fibrillation) I48.0 CPT Codes Advance Care Planning - Advance Care Planning discussion: On file, no changes ([id number]) Advance Care Planning - Time spent: 1-15 minutes, on File ([id number]) Additional Codes PHQ-9 - 27790 - PHQ-9 Billing: Yes ([id number]) Advance Care Planning Advance Care Planning discussion: On file, no changes Date of discussion: 10/29/24 Who was present: Patient and spouse Forms completed: Health Care Proxy and MOLST (Form given to patient, wants to take home and discussed with healthcare proxy) Time spent: 1-15 minutes, on File Actual minutes spent: 1
== END 2024-10-29 09:31 | disposition home or self-care (01) ==
LOC: HO.HMCC 08:20
PROVIDERS: PCP Internal Medicine; Visit Provider Internal Medicine
DX: Z00.00 Encounter for general adult medical examination without abnormal findings (principal); N39.0 Urinary tract infection, site not specified; J44.1 Chronic obstructive pulmonary disease with (acute) exacerbation; J44.9 Chronic obstructive pulmonary disease, unspecified; I48.0 Paroxysmal atrial fibrillation; E78.5 Hyperlipidemia, unspecified; Z86.73 Personal history of transient ischemic attack (TIA), and cerebral infarction without residual deficits; K22.0 Achalasia of cardia; M81.0 Age-related osteoporosis without current pathological fracture; I10 Essential (primary) hypertension; G47.33 Obstructive sleep apnea (adult) (pediatric)

== ENCOUNTER → 2024-10-29 08:19 | Outpatient (BNVA) | payer MEDICARE, SELFPAY | PROVIDERS: PCP Internal Medicine; Visit Provider Internal Medicine | DX: Z00.01 Encounter for general adult medical examination with abnormal findings (principal); N39.0 Urinary tract infection, site not specified; J44.1 Chronic obstructive pulmonary disease with (acute) exacerbation; E78.5 Hyperlipidemia, unspecified; K22.0 Achalasia of cardia; M81.0 Age-related osteoporosis without current pathological fracture; I10 Essential (primary) hypertension; G47.33 Obstructive sleep apnea (adult) (pediatric); J44.9 Chronic obstructive pulmonary disease, unspecified; I48.0 Paroxysmal atrial fibrillation; Z86.73 Personal history of transient ischemic attack (TIA), and cerebral infarction without residual deficits | CPT/HCPCS: 96127; 99212 ==

== ENCOUNTER 2024-11-08 08:21 | Outpatient (REF) | payer MEDICARE, SELFPAY ==
--- OUTSIDE RECORDS SUMMARY | 2024-11-08 08:24 | XMS_ITS | Clinical Summary ---
Author Organization [facility] Address [address] [place] [address] Phone Care Team Providers Care Operating Systems Programmer Name Role Phone Hayley Ni MD Primary [...] mg total) by mouth daily. 3 Active [place] Saline 0.65 % nasal spray 2 DRP [...] AM EDT Office Visit Thoracic Surgery - [place] [address] [place] [phone] Rebekah Herman PA History of lung cancer (Primary Dx); Multiple pulmonary nodules 10/10/2024 2:42 PM EDT - 10/10/2024 11:59 PM EDT Hospital Encounter [facility] CT Scan [address] [place] [phone] History of lung cancer Discharge Disposition: Home or Self Care from Last 3 Months Surgical History Surgery Date Site/Laterality Comments OTHER SURGICAL HISTORY PROCEDURE: [place] THORACOSCOPY W/LOBECTOMY SINGLE LOBE; COMMENT: right upper [...] Signed Date: 10/10/2024 15:22 ET Workstation ID: [id number] Transcribed By: Self Edit Transcribed Date: 10/10/2024 [...] stable micronodules in the right lower lobe. Team Guide example; Oval nodule central aspect right lower [...] stable micronodules in the right lower lobe. Team Guide example; Oval nodule central aspect right lower [...] Signed Date: 10/10/2024 15:22 ET Workstation ID: [id number] Transcribed By: Self Edit Transcribed Date: 10/10/2024 15:04 ET us Rebekah REARDON IMG CT PROCEDURES Final Resul t from Last 3 Months Insurance MEDICARE [facility] Care Teams Operating Systems Programmer Relationship Specialty Start Date End Date Hayley Ni MD [address] [place] [address] PCP - General 11/10/23
[2024-11-08 10:50] LABS: Alanine Aminotransferase 10 U/L (0-31); Aspartate Amino Transferase 19 U/L (5-31); Cholesterol 229 mg/dL (<200); HDL Cholesterol 62 mg/dL (>40); LDL Cholesterol Calculated 151 mg/dL (<100); Triglycerides 82 mg/dL (<150)
[2024-11-08 11:17] LABS: Appearance Urine Clear; Color Urine Yellow; Glucose Urine UA Negative (Negative); Leukocyte Esterase Urine Small (1+) (Negative); Nitrite Urine Negative (Negative); Specific Gravity - Urine 1.025 (1.005-1.025); UMIC TRIGGER UACC YES; Urine Blood Negative (Negative); Urine Ketones Trace mg/dL (Negative); Urine Protein Negative (Neg-Trace)
[2024-11-08 12:05] LABS: Bacteria Urine 4+ (None Seen); Hyaline Casts Urine 0-2 /LPF (0-2); RBC Urine 0-2 /HPF (0-2); Squamous Epithelial Cell Urine 0-2 /HPF (0-2); UACC Culture Trigger YES
== END 2024-11-08 08:22 | disposition home or self-care (01) ==
LOC: HO.HMGCLDS 08:21
PROVIDERS: PCP Internal Medicine; Referring Provider Physician Assistant; Visit Provider Internal Medicine
DX: I10 Essential (primary) hypertension (principal); Z86.73 Personal history of transient ischemic attack (TIA), and cerebral infarction without residual deficits; E55.9 Vitamin D deficiency, unspecified; M81.0 Age-related osteoporosis without current pathological fracture
CPT/HCPCS: 36415; 80061; 81001; 81003; 82306; 84450; 84460; 87086; 87088; 87186

== ENCOUNTER 2024-11-25 09:43 | Outpatient (REF) | payer MEDICARE, SELFPAY | END 2024-11-25 09:44 | disposition home or self-care (01) | LOC: HO.LAB 09:43 | PROVIDERS: PCP Internal Medicine | DX: N39.0 Urinary tract infection, site not specified (principal) | CPT/HCPCS: 81003; 87086; 87088; 87186; 99212 ==

== ENCOUNTER 2024-11-25 09:43 | Outpatient (AMB) | payer MEDICARE, SELFPAY ==
[2024-11-25 09:46] VITALS: BP 122/88; PULSE 82; TEMP 36.6; O2SAT 92; BMI 23.1
--- NOTE | 2024-11-25 09:46 | MHC.OFFWIV ---
Intake Vital Signs 11/25/24 09:46 Height 5 ft 6 in Weight 143 lb BMI 23.1 BP 122/88 Blood Pressure Location Lt brachial Position Sitting Pulse 82 Pulse Source Pulse Oximeter Temp 97.8 F Temp Source Oral Pulse Oximetry (%) 92 Oxygen Delivery Method Room Air Intake Visit Reasons: EP UTI? Intake Note: Pt presents to the office today for c/o UTI symptoms since yesterday. Pt states she just finished antibiotics for a UTI 2 days ago. Pt states she has an appt with Dr. Littlejohn in urology on 12/05/24. Patient Tobacco Use Status: Former Tobacco user Allergies bupropion [From Wellbutrin] Allergy (Verified 11/25/24 09:46) Chest Pain ciprofloxacin Allergy (Verified 11/25/24 09:46) Chest Pain IV/IM prednisone Allergy (Uncoded 11/25/24 09:46) Seizure HPI HPI Comments History of Present Illness Details History - The patient is a 69-year-old female presenting with symptoms of a persistent urinary tract infection. - She reports recurrent urinary tract infections with symptoms of increased frequency and pressure. - Treated with Cefuroxime on October 26 for an E. coli infection, which was sensitive to the antibiotic prescribed, Cefuroxime. - On November 08, Enterococcus was identified, not sensitive to Cefuroxime, leading to Nitrofurantoin prescription. - Experienced side effects from Nitrofurantoin, including itching and poor sleep. - Completed a 10-day course of Nitrofurantoin on November 21, but symptoms persisted. - Reports low-grade fever and lower back discomfort associated with the urinary tract infection. - Experiences tingling and pain in both hands, described as severe and spasmodic concurrent with the burning with urination. - History of back pain, at baseline. Physical Exam General: Cooperative, healthy appearing, comfortable, no acute distress and well developed Orientation: Patient oriented x3 Limitations: No limitations Head: Normal to inspection Ears: Hearing grossly normal bilaterally Face and sinus: Normal facial exam Neck: Normal visual inspection and Yes full ROM Respiratory: Normal respiratory effort and able to speak in complete sentences. Skin: no lesions or rashes noted Neuro: Patient oriented x3 [facility] Medical History Recurrent urinary tract infection History of lung cancer Dyslipidemia History of adenomatous polyp of colon Hx of TIA (transient ischemic attack) and stroke History of seizure disorder Achalasia of esophagus Osteoporosis HTN (hypertension) KRISTEN on CPAP Asthma-COPD overlap syndrome GERD (gastroesophageal reflux disease) Surgical History S/P cardiac catheterization S/P partial lobectomy of lung H/O wrist surgery History of cholecystectomy Family History Mother Small cell lung cancer Father Stomach cancer Brother Diabetes Throat cancer Social History Household Members: Spouse and Children Housing: House Do you presently have visiting nurse or other home services: No Alcohol intake: current Alcohol intake frequency: does not drink Patient Tobacco Use Status: Former Tobacco user Years Smoked: 30 +/- e-Cigarette/Vaping Use: Never Used Substance Use Type: Marijuana Advance Directives Date on File: 04/21/22 service: No Current occupational status: retired Cognitive needs: No Hearing needs: No Vision needs: Yes Review of Systems Const All systems reviewed & are unremarkable except as noted in HPI and below Physical Exam Vital Signs: Last Vital Signs Temp 97.8 F 11/25/24 09:46 Pulse 82 11/25/24 09:46 BP 122/88 11/25/24 09:46 Pulse Ox 92 11/25/24 09:46 Oxygen Delivery Method Room Air 11/25/24 09:46 BMI result Body Mass Index 23.1 Results AMB Urinalysis, Automated UA Leukoctes 500 Tonya/uL Last Edit by Maddie Fish CMA on 11/25/24 09:58 UA Nitrite Positive Last Edit by Maddie Fish CMA on 11/25/24 09:58 UA Urobilinogen 8 mg/dL Last Edit by Maddie Fish CMA on 11/25/24 09:58 UA Protein 30 mg/dL Last Edit by Maddie Fish CMA on 11/25/24 09:58 UA pH 5.0 Last Edit by Maddie Fish CMA on 11/25/24 09:58 UA Blood 200 Juan Francisco/uL Last Edit by Maddie Fish CMA on 11/25/24 09:58 UA Specific [place] 1.030 Last Edit by Maddie Fish CMA on 11/25/24 09:58 UA Ketone Positive Last Edit by Maddie Fish CMA on 11/25/24 09:58 UA Bilirubin 4 mg/dL Last Edit by Maddie Fish CMA on 11/25/24 09:58 UA Glucose 100 mg/dL Last Edit by Maddie Fish CMA on 11/25/24 09:58 Results Reviewed Results Reviewed: Laboratory Last Values Urine pH (Auto) 5.0 11/25/24 09:55 Specific [place] (Auto) 1.030 11/25/24 09:55 Urine Protein (Auto) 30 mg/dL 11/25/24 09:55 Glucose (UA)(Auto) 100 mg/dL 11/25/24 09:55 Urine Ketones (Auto) Positive 11/25/24 09:55 Urine Blood (Auto) 200 [place] Francisco/uL 11/25/24 09:55 Urine Nitrite (Auto) Positive 11/25/24 09:55 Urine Bilirubin (Auto) 4 mg/dL 11/25/24 09:55 Urine Urobilinogen (Auto) 8 mg/dL 11/25/24 09:55 Leukocyte Esterase (Auto) 500 Tonya/uL 11/25/24 09:55 Assessment & Plan Assessment & Plan (1) Recurrent urinary tract infection: Code(s): N39.0 - Urinary tract infection, site not specified Plan: 1. Urinary Tract Infection - Start Cefuroxime and monitor response. - Urine culture sent - Consider Levaquin if urine culture results in Enterococcus, we did discuss caution for tendon rupture risk. - Increase fluid intake to aid urinary tract flushing. - Avoid omeprazole with Cefuroxime; use Tums instead. Patient was informed and verbally consented to the use of an ambient scribe for clinic note documentation during this visit. Orders: Orders AMB Urinalysis Automated Today Z13.9 - Encounter for screening, unspecified Urine Culture Today N39.0 - Urinary tract infection, site not specified Medications: New cefuroxime axetil 500 mg PO Q12H 10 tabs 0RF Coding Level of Care Code Est Pt Level 3 (14296) Diagnoses Recurrent urinary tract infection N39.0
--- OUTSIDE RECORDS SUMMARY | 2024-11-25 10:37 | XMS_ITS | Clinical Summary ---
Author Organization [facility] Address [address] [place] [address] Phone Care Team Providers Care Pocket Setter Lockstitch Name Role Phone Hayley Ni MD Primary [...] mg total) by mouth daily. 3 Active [place] Saline 0.65 % nasal spray 2 DRP [...] AM EDT Office Visit Thoracic Surgery - [place] [address] [place] [phone] Rebekah Herman PA History of lung cancer (Primary Dx); Multiple pulmonary nodules 10/10/2024 2:42 PM EDT - 10/10/2024 11:59 PM EDT Hospital Encounter CT Scan [address] [place] [phone] History of lung cancer Discharge Disposition: Home or Self Care from Last 3 Months Surgical History Surgery Date Site/Laterality Comments OTHER SURGICAL HISTORY PROCEDURE: [place] THORACOSCOPY W/LOBECTOMY SINGLE LOBE; COMMENT: right upper [...] Signed Date: 10/10/2024 15:22 ET Workstation ID: [id number] Transcribed By: Self Edit Transcribed Date: 10/10/2024 [...] stable micronodules in the right lower lobe. Locomotive Inspector example; Oval nodule central aspect right lower [...] stable micronodules in the right lower lobe. Locomotive Inspector example; Oval nodule central aspect right lower [...] Signed Date: 10/10/2024 15:22 ET Workstation ID: [id number] Transcribed By: Self Edit Transcribed Date: 10/10/2024 15:04 ET us Rebekah REARDON IMG CT PROCEDURES Final Resul t from Last 3 Months Insurance MEDICARE [facility] Care Teams Pocket Setter Lockstitch Relationship Specialty Start Date End Date Hayley Ni MD [address] [place] [address] PCP - General 11/10/23
== END 2024-11-25 10:20 | disposition home or self-care (01) ==
PROVIDERS: PCP Internal Medicine; Visit Provider Physician Assistant
DX: Z13.9 Encounter for screening, unspecified (principal); N39.0 Urinary tract infection, site not specified

== ENCOUNTER 2024-12-05 10:45 | Outpatient (REF) | payer MEDICARE, SELFPAY | END 2024-12-05 10:46 | disposition home or self-care (01) | LOC: HO.LNP 10:45 | PROVIDERS: PCP Internal Medicine; Visit Provider Urology | DX: Z87.440 Personal history of urinary (tract) infections (principal); R82.90 Unspecified abnormal findings in urine | CPT/HCPCS: 87086; 87088; 87186; 99202 ==

== ENCOUNTER 2024-12-05 10:45 | Outpatient (AMB) | payer MEDICARE, SELFPAY ==
--- NOTE | 2024-12-05 10:52 | MHC.OFFVIS ---
Intake Visit Reasons: Frequent UTIs Intake Note: New patient presents today for initial visit for frequent UTI's Urology Medication:None Blood Thinner:Xarelto Antibiotic Allergies:Ciprofloxacin PVR:44ml Allergies bupropion (From Wellbutrin) Allergy (Verified 01/31/25 14:20) Chest Pain ciprofloxacin Allergy (Verified 01/31/25 14:20) Chest Pain IV/IM prednisone Allergy (Uncoded 11/25/24 09:46) Seizure Medication List - Last Reconciled 12/05/24 by Nilson Solomon MD albuterol sulfate 90 mcg/actuation 2 puffs inhalation Q4H PRN calcium carbonate-vitamin D3 600 mg-20 mcg (800 unit) (Caltrate with Vitamin D3) 1 tab PO DAILY cefuroxime axetil 500 mg PO Q12H cholecalciferol (vitamin D3) 1,250 mcg PO QWEEK diltiazem HCl ER 240 mg PO DAILY flecainide 100 mg PO Q12H qalusezqdcx-ujzyufpua-euiplcjh 200-62.5-25 mcg (Trelegy Ellipta) 1 inh inhalation DAILY 30 days lamotrigine 100 mg PO BID levalbuterol HCl 1.25 mg (3 mL) inhalation BID 30 days nebulizers As directed nitrofurantoin monohyd/m-cryst 100 mg (Macrobid) 100 mg PO DAILY omeprazole 40 mg PO BID Oxygen Home Use As directed phenazopyridine (Azo Urinary Pain Relief) 95 mg PO TID PRN rivaroxaban (Xarelto) 20 mg PO QPM HPI Comments Details: 12/05/24-- History of Present Illness - The patient is a 69-year-old female presenting with recurrent urinary tract infections. - The patient has been experiencing frequent urinary tract infections since January of the previous year, confirmed by positive urine cultures. - The most recent culture on November 25, 2024, showed E. coli, with previous cultures showing Enterococcus and E. paralae with varying antibiotic resistance. - The patient reports symptoms such as pain and urinary urgency, with episodes occurring as frequently as three times a month. - She has been on various antibiotics, including Cefuroxime and Nitrofurantoin, with varying effectiveness. - A CT scan of the abdomen and pelvis in August 2024 showed no renal stones or masses but noted a large amount of stool throughout the colon. - The patient has been experiencing tailbone and lower back pain for the last few months, which she associates with her urinary symptoms. - Discussed constipation with dietary changes, including the use of probiotics and apple cider vinegar, to improve bowel regularity and reduce UTI risk. Results - Labs: Urine cultures positive for E. coli on 11/25/24, Enterococcus on 11/08/24, and E. paralae on 10/26/24. - Imaging: CT scan of the abdomen and pelvis on 08/28/24 showed no renal stones or masses but a large amount of stool throughout the colon. [facility] Medical History Recurrent urinary tract infection History of lung cancer Dyslipidemia History of adenomatous polyp of colon Hx of TIA (transient ischemic attack) and stroke History of seizure disorder Achalasia of esophagus Osteoporosis HTN (hypertension) KRISTEN on CPAP Asthma-COPD overlap syndrome GERD (gastroesophageal reflux disease) Surgical History S/P cardiac catheterization S/P partial lobectomy of lung H/O wrist surgery History of cholecystectomy Family History Mother Small cell lung cancer Father Stomach cancer Brother Diabetes Throat cancer Social History Household Members: Spouse and Children Housing: House Do you presently have visiting nurse or other home services: No Alcohol intake: current Alcohol intake frequency: does not drink Patient Tobacco Use Status: Former Tobacco user Years Smoked: 30 +/- e-Cigarette/Vaping Use: Never Used Substance Use Type: Marijuana Advance Directives Date on File: 04/21/22 service: No Current occupational status: retired Cognitive needs: No Hearing needs: No Vision needs: Yes Review of Systems Const All systems reviewed & are unremarkable except as noted in HPI and below Reports no additional complaints Eyes Reports no additional complaints ENT Reports no additional complaints Card Reports no additional complaints Resp Reports no additional complaints GI Reports no additional complaints Reports as per HPI Musc Reports no additional complaints Skin/Breast Reports system reviewed and no additional complaints, except as documented Neuro Reports no additional complaints Psych Reports no additional complaints Endo Reports no additional complaints Ga/Lymph Reports no additional complaints Aller/Immun Reports no additional complaints Physical Exam Const General: cooperative, healthy appearing and no acute distress Orientation/consciousness: patient oriented x3 HEENT Head: Yes normal to inspection, Yes normocephalic and Yes atraumatic Eyes Conjunctivae: conjunctivae normal Neck Neck: Yes normal visual inspection and Yes trachea midline Chest Chest palpation & inspection: normal inspection of the chest Resp Effort & Inspection: normal respiratory effort GI Inspection: Yes normal to inspection Neuro General: patient oriented x3 Psych Appearance: grossly normal Results Reviewed Results Reviewed: Date of Service: 08/28/24 EXAMINATION: CT ABDOMEN PELVIS WITH IV CONTRAST HISTORY: R10.32 - Left lower quadrant pain COMPARISON: There are no prior studies for comparison. TECHNIQUE: CT scan of the abdomen and pelvis was performed following administration of 85 mL Omnipaque 350 using standard departmental protocol. Coronal and sagittal reformatted images were generated and reviewed. The patient received oral contrast material. This CT exam was performed with one or more of the following dose reduction techniques: automated exposure control, adjustment of the mA and/or kV according to patient size, use of iterative reconstruction technique. DLP: 422 mGy-cm FINDINGS: LOWER CHEST: The visualized lung bases are clear. There is no pleural effusion. CARDIOVASCULATURE: The heart is normal in size. There is no pericardial effusion. LIVER: The liver is normal in size and contour. No liver mass is identified. The hepatic and portal veins are patent. GALLBLADDER / BILE DUCTS: The gallbladder is surgically absent. There is no intra or extrahepatic biliary ductal dilatation. SPLEEN: The spleen is normal in size. No focal splenic lesion is identified. PANCREAS: The pancreas is unremarkable in appearance. ADRENAL GLANDS: Within normal limits. KIDNEYS/RETROPERITONEUM: The kidneys are mildly lobulated which may represent scarring. No renal calculi are identified. There is no hydronephrosis. No renal masses are identified. LYMPH NODES: No abdominal or pelvic lymphadenopathy. VASCULATURE: The abdominal aorta demonstrates atherosclerotic calcification, but is normal in caliber. MESENTERY/PERITONEUM: No free fluid. No masses. There is no free intraperitoneal gas. STOMACH: There is a small hiatal hernia. The remainder of the stomach is collapsed. SMALL BOWEL: The small bowel is normal in caliber. COLON: There is a large amount of stool throughout the colon. There is diverticulosis of the sigmoid colon, without evidence of diverticulitis. APPENDIX: Normal. URINARY BLADDER/PELVIC ORGANS: The urinary bladder is unremarkable. The uterus and ovaries are unremarkable. BONES / SOFT TISSUES: There is degenerative disc disease of the spine. IMPRESSION: 1. Large amount of stool throughout the colon. Sigmoid diverticulosis without evidence of diverticulitis. 2. Small hiatal hernia. Assessment & Plan Assessment & Plan (1) Recurrent UTI: Code(s): N39.0 - Urinary tract infection, site not specified Category: Medical (2) Chronic cystitis: Code(s): N30.20 - Other chronic cystitis without hematuria Category: Medical Plan Plan - Continue low-dose daily antibiotic therapy to prevent recurrence of urinary tract infections. - Schedule a cystoscopy to evaluate the bladder and urethra for any underlying issues contributing to recurrent infections. - Encourage increased water intake to improve hydration and potentially reduce UTI recurrence. - Monitor symptoms closely and contact the office if symptoms worsen or do not improve, with the option to visit urgent care if necessary. Orders: Orders Urine Culture 12/05/24 Z87.440 - Personal history of urinary (tract) infections Medications: New nitrofurantoin monohyd/m-cryst 100 mg (Macrobid) 100 mg PO DAILY 60 caps 0RF recurent UTI, bacteuria Patient Instructions: The patient had an opportunity to ask questions regarding treatment plan. The patient expressed understanding and agreement with the above treatment plan. The patient is aware they should contact our office by phone for worsening of their current condition or the appearance of new symptoms. Compliance is encouraged with any medications and followup testing that is ordered. It is a privilege to be allowed the opportunity to participate in the urologic care of your patient. If you have any questions or concerns regarding treatment for the above conditions please do not hesitate to contact me. The office telephone contact is [phone]. This note is constructed in part using voice recognition software. While every effort has been made to ensure accuracy client care specialist errors may have been included. Yours sincerely, Nilson Solomon MD Scribe Plan - Not visible on output: Patient was informed and verbally consented to the use of an ambient scribe for clinic note documentation during this visit. Coding Level of Care Code New Pt Level 4 (07475) Diagnoses Recurrent UTI N39.0 Chronic cystitis N30.20
--- OUTSIDE RECORDS SUMMARY | 2024-12-05 12:37 | XMS_ITS | Clinical Summary ---
Author Organization [facility] Address [address] [place] [address] Phone Care Team Providers Care Lead Designer Name Role Phone Hayley Ni MD Primary [...] mg total) by mouth daily. 3 Active [place] Saline 0.65 % nasal spray 2 DRP [...] AM EDT Office Visit Thoracic Surgery - [place] [address] [place] [phone] Rebekah Herman PA History of lung cancer (Primary Dx); Multiple pulmonary nodules 10/10/2024 2:42 PM EDT - 10/10/2024 11:59 PM EDT Hospital Encounter [facility] CT Scan [address] [place] [phone] History of lung cancer Discharge Disposition: Home [...] 79 10/17/2024 10:49 AM EDT Temperature 36.8 C (98.2 F) 10/17/2024 10:49 AM EDT Respiratory Rate 16 10/17/2024 10:49 AM EDT [...] These appear unchanged and could be postinflammatory. -------- FINAL REPORT -------- Dictated By: Jaun Linton Dictated Date: 10/10/2024 15:04 ET Assigned Physician: Jaun Linton Reviewed and Electronically Signed By: Jaun Linton Signed Date: 10/10/2024 15:22 ET Workstation ID: [id number] Transcribed By: Self Edit Transcribed Date: 10/10/2024 15:04 ET Narrative 10/10/2024 3:22 PM EDT EXAMINATION: CT CHEST WITHOUT CONTRAST CLINICAL INFORMATION: Personal history of lung cancer. Post right upper lobectomy. Surveillance COMPARISON: Portions of previous 10/26/23 TECHNIQUE: Multidetector [...] stable micronodules in the right lower lobe. Forest Pathologist example; Oval nodule central aspect right lower lobe 10/10/24-0.4 cm (3/122) 10/26/23-0.4 cm (3/126) 10/22/21-0.4 cm (3/134) Pleural associated nodule lateral right lower lobe 10/10/24-0.4 cm (3/149) 10/26/23-0.4 cm (3/155) 10/22/21-0.4 cm (3/161) There are several small solid nodules some which appear to be associated with the inferior pulmonary ligament posterior right lower lobe (3/157), these appear stable. MEDIASTINUM: There are no enlarged mediastinal or hilar lymph nodes. No suspicious abnormality of the esophagus. Small hiatal hernia. CARDIAC: The heart is not enlarged. No pericardial fluid or thickening CORONARY CALCIFICATION: There are moderate coronary calcifications. VASCULAR: There is no thoracic aortic aneurysm. The central pulmonary arteries are prominent. PLEURA: There is no pleural fluid or pneumothorax AXILLA/CHEST WALL: There are no enlarged axillary lymph nodes. No chest wall mass demonstrated VISUALIZED UPPER ABDOMEN: No suspicious abnormality on limited assessment of the visualized upper abdomen MUSCULOSKELETAL: No suspicious focal bony lesion. Procedure Note Jaun Linton MD - 10/10/2024 [...] stable micronodules in the right lower lobe. Forest Pathologist example; Oval nodule central aspect right lower [...] Signed Date: 10/10/2024 15:22 ET Workstation ID: [id number] Transcribed By: Self Edit Transcribed Date: 10/10/2024 15:04 ET Rebekah REARDON IMG CT PROCEDURES Final Resul t from Last 3 Months Insurance MEDICARE [facility] Care Teams Lead Designer Relationship Specialty Start Date End Date Hayley Ni MD [address] [place] [address] PCP - General 11/10/23
== END 2024-12-05 11:52 | disposition home or self-care (01) ==
LOC: HO.HUSH 10:45
PROVIDERS: PCP Internal Medicine; Visit Provider Urology
DX: N39.0 Urinary tract infection, site not specified (principal); N30.20 Other chronic cystitis without hematuria
CPT/HCPCS: 99204

== ENCOUNTER 2024-12-26 07:52 | Outpatient (REF) | payer MEDICARE, SELFPAY ==
--- OUTSIDE RECORDS SUMMARY | 2024-12-26 07:55 | XMS_ITS | Clinical Summary ---
Author Organization [facility] Address [address] [place] [address] Phone Care Team Providers Care Build Technician Name Role Phone Hayley Ni MD Primary Care Provider [phone] Allergies No known active allergies Medications ipratropium-alb [...] mg total) by mouth daily. 3 Active [place] Saline 0.65 % nasal spray 2 DRP [...] AM EDT Office Visit Thoracic Surgery - [place] [address] [place] [phone] Rebekah Herman PA History of lung cancer (Primary Dx); Multiple pulmonary nodules 10/10/2024 2:42 PM EDT - 10/10/2024 11:59 PM EDT Hospital Encounter [facility] CT Scan [address] [place] [phone] History of lung cancer Discharge Disposition: Home or Self Care from Last 3 Months Surgical History Surgery Date Site/Laterality Comments OTHER SURGICAL HISTORY PROCEDURE: [place] THORACOSCOPY W/LOBECTOMY SINGLE LOBE; COMMENT: right upper [...] Influencers of Health Screening 05/15/2022 Influenza Vaccine (#1) 2025 2, 03/01/2022, 05/31/2021, Additional history exists Colorectal Cancer [...] Signed Date: 10/10/2024 15:22 ET Workstation ID: [id number] Transcribed By: Self Edit Transcribed Date: 10/10/2024 [...] stable micronodules in the right lower lobe. Shipyard Painter Apprentice example; Oval nodule central aspect right lower [...] stable micronodules in the right lower lobe. Shipyard Painter Apprentice example; Oval nodule central aspect right lower [...] Signed Date: 10/10/2024 15:22 ET Workstation ID: [id number] Transcribed By: Self Edit Transcribed Date: 10/10/2024 15:04 ET Rebekah REARDON IMG CT PROCEDURES Final Resul t from Last 3 Months Insurance MEDICARE [facility] Care Teams Build Technician Relationship Specialty Start Date End Date Hayley Ni MD [address] [place] [address] PCP - General 11/10/23
--- OUTSIDE RECORDS SUMMARY | 2024-12-26 07:55 | XMS_ITS | Patient Health Record ---
Author Organization [facility] Address [address] [place] [phone] Care Team Providers Care Rubber And Plastics Worker Name Role Phone Abigail Em MD Primary Care Provider Noah Hummel [phone] Allergies Allergen (clinical drug ingredient) Drug/Non Drug [...] Problem Status W/U Status Risk Notes Problem [id number] Encounter for screening for malignant neoplasm of colon (Z12.11) Active confirmed Problem 451668672 History of adenomatous polyp of colon (Z86.010) Active confirmed Problem Nausea and vomiting (65987666) Nausea with vomiting, unspecified (R11.2) Active confirmed Problem 303755668 Gastroesophageal reflux disease without esophagitis (K21.9) Active confirmed Problem 70757041 Dysphagia, unspecified type (R13.10) Active confirmed Problem Acute diarrhea (988975308) Acute diarrhea (R19.7) Active confirmed Plan Of [...] Date MEDICARE OF [place] [address] [facility] [id number] [id number] VJ MCGUIRE Self - patient is the insured MEDEX ATTN CLAIMS [address] [place] [address] [id number] 2 VJ MCGUIRE Self - patient is [...] check for sleep apnea Pneumonia in [facility]/2015--[facility] Hypertension Grand mal seizure 02/2020 at [facility] Atrial fibrillation with a l oop [...]
[2024-12-26 10:53] LABS: Appearance Urine Cloudy; Glucose Urine UA Negative (Negative); PH 5.5 (5.0-9.0); Specific Gravity - Urine 1.020 (1.005-1.025); UMIC TRIGGER UA YES
== END 2024-12-26 07:53 | disposition home or self-care (01) ==
LOC: HO.HMGCLDS 07:52
PROVIDERS: PCP Internal Medicine; Visit Provider Urology
DX: N39.0 Urinary tract infection, site not specified (principal)
CPT/HCPCS: 81001; 87086; 87088; 87186

== ENCOUNTER 2025-01-16 13:01 | Outpatient (AMB) | payer MEDICARE, SELFPAY ==
--- OUTSIDE RECORDS SUMMARY | 2025-01-16 13:05 | XMS_ITS | Encounter Summary ---
Author Organization [facility] Address [address] [place] [phone] Phone Care Team Providers Care Auto Club Safety Program Coordinator Name Role Phone Giovanna Garcia NP Primary Care Provider [phone] Geronimo Beltran MD Unavailable [phone] Emely Barnes RN Unavailable [phone] Unknown, Unknown Primary Care Provider Hayley Couch MD Primary Care Provider Encounter Details Date Type Department Care Team (Late Contact Info) Description 03/20/2020 Procedure Pass [facility] [address] [place] [address] Social History Tobacco Use Types Packs/Day Years Used Date Smoking Tobacco: Former Cigarettes 1 45 0 09/06/1970 - 09/07/2015 Smokeless Tobacco: Never Alcohol Use Standard Drinks/Week Comments Never 0 (1 standard drink = 0.6 oz pur e alcohol) not even once a year Comments No Sex and Gender Information Value [...] fi le documented as of this encounter Plan of Treatment Upcoming Encounters Date Type Department Care Team (Late Contact Info) Description 07/10/2025 1:40 PM EST Office Visit [facility] [address] [place] [address] Efrain Melgar DO [address] [place] [address] [email or web address] documented as of this encounter Visit Diagnoses Not on filedocumented in this encounter Additional Health Concerns Infection Onset Date Last Indicated Resolved Time CoV-Exposed Comment:Recent close contact 05/15/2020 05/15/2020 05/29/2020 1:24 AM EST CoV-Risk 03/09/2021 03/09/2021 03/19/2021 1:25 AM EDT CoV-Risk Comment:Per Ambulatory Triage Form 05/17/2021 05/19/202105/29 1:24 AM EST CoV-Risk Comment:Per Ambulatory Triage Form 07/01/2021 07/01/202107/01 4:31 PM EST COVID-19 07/01/2021 07/01/2021 07/22/2021 1:21 AM EST CoV-Risk 03/29/2022 03/29/2022 04/09/2022 1:22 AM EDT Assessment Noted Time PHQ-2 Depression Total Score: 0 07/25/19 2:25 PM EST documented as of this encounter Care Teams Auto Club Safety Program Coordinator Relationship Specialty Start Date End Date Giovanna Garcia NP [email or web address] PCP - General Family Medicine 11/15/17 08/22/23 Unknown, Unknown, MD PCP - General 08/23/23 03/07/24 Hayley Ni MD [address] [place] [address] PCP - General Internal Medicine 03/08/24 Geronimo Beltran MD [address] [place] [id number] [email or web address] Insurance Assigned Provider 09/19/20 06/17/23 Emely Barnes, RN [address] [place] [id number] [email or web address] [employer] Manufacturing Planner 07/27/21 08/10/21 documented as of this encounter Additional Source Comments The information contained in this document represents components of the legal health record. It is not the complete legal health record.[facility]
--- OUTSIDE RECORDS SUMMARY | 2025-01-16 13:06 | XMS_ITS | Clinical Summary ---
Author Organization [facility] Address [address] [place] [address] Phone Care Team Providers Care Farm Planner Name Role Phone Hayley Ni MD Primary [...] mg total) by mouth daily. 3 Active Brilliant Saline 0.65 % nasal spray 2 DRP [...] AM EDT Office Visit Thoracic Surgery - [address] [place] [phone] Rebekah Herman PA History of lung cancer (Primary Dx); Multiple pulmonary nodules from Last 3 Months Surgical History Surgery Date Site/Laterality Comments OTHER SURGICAL HISTORY PROCEDURE: [place] THORACOSCOPY W/LOBECTOMY SINGLE LOBE; COMMENT: right upper [...] (2 - Pfizer risk series) 07/06/2021 06/15/2021 Falls Risk Assessment 05/15/2022 Lung Cancer Screening (Low Dose CT) 05/15/2022 Medicare Annual Wellness Visit 05/15/2022 Social Influencers of Health Screening 05/15/2022 Depression Screening 06/12/2024 Influenza Vaccine (#1) 2025 , 03/01/2022, 05/31/2021, Additional history exists Colorectal Cancer [...] age to complete this topic Insurance MEDICARE [facility] Care Teams Farm Planner Relationship Specialty Start Date End Date Hayley Ni MD [address] [place] [address] PCP - General 11/10/23
--- OUTSIDE RECORDS SUMMARY | 2025-01-16 13:06 | XMS_ITS | Patient Health Record ---
Author Organization [facility] Address [address] [place] [phone] Care Team Providers Care United [place] Marshal Name Role Phone Abigail Em MD Primary Care Provider Noah Hummel [phone] Allergies Allergen (clinical drug ingredient) Drug/Non Drug [...] Problem Status W/U Status Risk Notes Problem [id number] Encounter for screening for malignant neoplasm of colon (Z12.11) Active confirmed Problem 459102716 History of adenomatous polyp of colon (Z86.010) Active confirmed Problem Nausea and vomiting (32603833) Nausea with vomiting, unspecified (R11.2) Active confirmed Problem 941011787 Gastroesophageal reflux disease without esophagitis (K21.9) Active confirmed Problem 91910755 Dysphagia, unspecified type (R13.10) Active confirmed Problem Acute diarrhea (965080571) Acute diarrhea (R19.7) Active confirmed Plan Of [...] MEDICARE OF [place] [address] [facility] [address] [id number] VJ MCGUIRE Self - patient is the insured [employer] ATTN CLAIMS [address] [place] [address] [id number] 2 VJ MCGUIRE Self - patient is [...] some sigmoid diverticulosis and internal hemorrhoids Denies [place],CVA,DM,renal disease Hyperlipidemia Anxiety since 08/2011 IBS-EGD with normal duodenal biopsies in 2012 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 during the day; going for a sleep study as of the 11/2019 OV to check for sleep apnea Pneumonia in 09/2015--at [facility] Hypertension Grand mal seizure 02/[address] [facility] Atrial fibrillation with a l oop recorder [...]
[2025-01-16 13:28] VITALS: BP 132/60; PULSE 73; TEMP 36.7; O2SAT 94; BMI 23.6
--- NOTE | 2025-01-16 13:28 | AM.OFFWIN_ITS ---
Intake Vital Signs 01/16/25 13:28 Height 5 ft 6 in Weight 146 lb BMI 23.6 BP 132/60 Blood Pressure Location Lt brachial Position Sitting Pulse 73 Pulse Source Pulse Oximeter Temp 98.1 F Temp Source Oral Pulse Oximetry (%) 94 Oxygen Delivery Method Room Air Intake Visit Reasons: Urinary tract infection Intake Note: presents with urine frequency, pressure, burning , low back and lower abdominal pain and tingly hands Patient Tobacco Use Status: Former Tobacco user Allergies bupropion (From Wellbutrin) Allergy (Verified 01/16/25 13:36) Chest Pain ciprofloxacin Allergy (Verified 01/16/25 13:36) Chest Pain IV/IM prednisone Allergy (Uncoded 11/25/24 09:46) Seizure Do you need a note to return to daycare/school/sports/work: No HPI HPI Comments History of Present Illness Details History - The patient is a 69-year-old female pr esenting with recurrent urinary tract infections. - She experiences urinary tract infectio ns multiple times each month, with a history of treatment using various antibiotics, including Bactrim. - Despite a 10-day course of Bactrim, in fections recur shortly after treatment ends. - A cystogram is planned to explore pote ntial underlying causes. - The patient reports persistent gastroi ntestinal issues, including diarrhea and constipation. - Scans have shown significant bulk in t he colon, suggesting possible bowel obstruction or motility issues. - She practices strict hygiene to preven t infections, reflecting her concern about health. - She denies fever, chills, abd pain, n/ v/d, vaginal discharge, or bleeding. Physical Exam General: Cooperative, healthy appearing, comfortable, no acute distress and well developed Cardiac: Normal S1 and S2. RRR, no M/R/G noted. Respiratory: Normal respiratory effort and able to speak in complete sentences. Clear to auscultation bilaterally. No w/r/r noted. Skin: No rashes or lesions noted. GI: Normal inspection. Normal BS noted. Soft, non-tender, non-distended. No TTP of all 4 quadrants. No guarding or rebound tenderness noted. Back: Negative CVA bilaterally Patient was informed and verbally consented to the use of an ambient scribe for clinic note documentation during this visit. [facility] Medical History Recurrent urinary tract infection History of lung cancer Dyslipidemia History of adenomatous polyp of colon Hx of TIA (transient ischemic attack) and stroke History of seizure disorder Achalasia of esophagus Osteoporosis HTN (hypertension) KRISTEN on CPAP Asthma-COPD overlap syndrome GERD (gastroesophageal reflux disease) Surgical History S/P cardiac catheterization S/P partial lobectomy of lung H/O wrist surgery History of cholecystectomy Family History Mother Small cell lung cancer Father Stomach cancer Brother Diabetes Throat cancer Social History Household Members: Spouse and Children Housing: House Do you presently have visiting nurse or other home services: No Alcohol intake: current Alcohol intake frequency: does not drink Patient Tobacco Use Status: Former Tobacco user Years Smoked: 30 +/- e-Cigarette/Vaping Use: Never Used Substance Use Type: Marijuana Advance Directives Date on File: 04/21/22 service: No Current occupational status: retired Cognitive needs: No Hearing needs: No Vision needs: Yes Review of Systems Const All systems reviewed & are unremarkable except as noted in HPI and below Physical Exam Vital Signs: Last Vital Signs Temp 98.1 F 01/16/25 13:28 Pulse 73 01/16/25 13:28 BP 132/60 01/16/25 13:28 Pulse Ox 94 01/16/25 13:28 Oxygen Delivery Method Room Air 01/16/25 13:28 BMI result Body Mass Index 23.6 Assessment & Plan Assessment & Plan (1) Dysuria: Code(s): R30.0 - Dysuria Plan UA in the office shows 2+leuko plan 1. Urinary Tract Infection (Uti) - Continue Bactrim until the cystogram is performed next month. - A urine culture will be sent to ensure appropriate antibiotic coverage. - drink fluids - take pyridium as prescribed - follow up with the urologist Orders: Orders AMB Urinalysis Automated Today Z13.9 - Encounter for screening, unspecified Urine Culture Today N39.0 - Urinary tract infection, site not specified Coding Level of Care Code Est Pt Level 3 (43287) Diagnoses Dysuria R30.0
== END 2025-01-16 14:54 | disposition home or self-care (01) ==
PROVIDERS: PCP Internal Medicine; Visit Provider Physician Assistant Medical
DX: R30.0 Dysuria (principal); Z13.9 Encounter for screening, unspecified

== ENCOUNTER 2025-01-16 13:01 | Outpatient (REF) | payer MEDICARE, SELFPAY | END 2025-01-16 13:02 | disposition home or self-care (01) | LOC: HO.LNP 13:01 | PROVIDERS: PCP Internal Medicine; Visit Provider Physician Assistant Medical | DX: N39.0 Urinary tract infection, site not specified (principal); R30.0 Dysuria; Z13.89 Encounter for screening for other disorder | CPT/HCPCS: 81003; 87086; 87088; 87186; 99212 ==

== ENCOUNTER 2025-01-31 13:41 | Outpatient (AMB) | payer MEDICARE, SELFPAY ==
--- OUTSIDE RECORDS SUMMARY | 2025-01-31 13:43 | XMS_ITS | Clinical Summary ---
Author Organization [facility] Address [address] [place] [address] Phone Care Team Providers Care Operations Support Analyst Name Role Phone Hayley Ni MD [...] mg total) by mouth daily. 3 Active [place] Saline 0.65 % nasal spray 2 DRP [...] that next visit. Multiple pulmonary nodules 10/18/2024 Surgical History Surgery Date Site/Laterality Comments OTHER SURGICAL HISTORY PROCEDURE: CO THORACOSCOPY W/LOBECTOMY SINGLE LOBE; COMMENT: right upper [...] MEDICARE [facility] Care Teams Operations Support Analyst Relationship Specialty Start Date End Date Hayley Ni MD [address] [place] [address] PCP - General 11/10/23
--- OUTSIDE RECORDS SUMMARY | 2025-01-31 13:43 | XMS_ITS | Patient Health Record ---
Author Organization [facility] Address [address] [place] [address] Care Team Providers Care Court Supervisor Name Role Phone Abigail Em MD Primary Care Provider Noah Hummel [phone] Allergies Allergen (clinical drug ingredient) Drug/Non Drug [...] Problem Status W/U Status Risk Notes Problem [id number] Encounter for screening for malignant neoplasm of colon (Z12.11) Active confirmed Problem 877735542 History of adenomatous polyp of colon (Z86.010) Active confirmed Problem Nausea and vomiting (42490850) Nausea with vomiting, unspecified (R11.2) Active confirmed Problem 194777710 Gastroesophageal reflux disease without esophagitis (K21.9) Active confirmed Problem 75335861 Dysphagia, unspecified type (R13.10) Active confirmed Problem Acute diarrhea (656169589) Acute diarrhea (R19.7) Active confirmed Plan Of [...] MEDICARE OF [place] [address] [facility] [phone] [id number] VJ MCGUIRE Self - patient is the insured [employer] ATT[employer] CLAIMS [address] [place] [address] [phone] [id number] 2 VJ MCGUIRE Self - patient is [...] some sigmoid diverticulosis and internal hemorrhoids Denies HI,CVA,DM,renal disease Hyperlipidemia Anxiety since 08/2011 IBS-EGD with normal duodenal biopsies in 2012 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 during the day; going for a sleep study as of the 11/2019 OV to check for sleep apnea Pneumonia in 09/2015--at [facility] Hypertension Grand mal seizure 02/2020 at [facility] Atrial fibrillation with a l oop [...]
--- OUTSIDE RECORDS SUMMARY | 2025-01-31 13:43 | XMS_ITS | Encounter Summary ---
Author Organization [facility] Address [address] [place] [address] Phone Care Team Providers Care Tying Machine Operator Lumber Name Role Phone Giovanna Garcia NP Primary Care Provider [phone] Geronimo Beltran MD Unavailable [phone] Emely Barnes RN Unavailable [phone] Unknown, Unknown Primary Care Provider Hayley Couch MD Primary Care Provider Encounter Details Date Type Department Care Team (Late Contact Info) Description 03/20/2020 Procedure Pass [facility] Cardiovascular And Interventional Radiology [address] [place] [phone] Social History Tobacco Use Types Packs/Day Years [...] Upcoming Encounters Date Type Department Care Team (Special Care [facility] Contact Info) Description 02/06/2025 1:30 PM EDT Infusion [facility] [address] [place] [address] Efrain Melgar DO [address] [place] [address] 07/10/2025 1:40 PM EST Office Visit [facility] [address] [place] [address] Efrain Melgar [address] [place] [address] documented as of this encounter Visit Diagnoses [...] documented as of this encounter Care Teams Tying Machine Operator Lumber Relationship Specialty Start Date End Date Giovanna Garcia HOLD WORKER PCP - General Family Medicine 11/15/17 08/22/23 Unknown, Daxa, PCP - General 08/23/23 03/07/24 Hayley Ni MD [facility] [place] [address] PCP - General Internal Medicine 03/08/24 Geornimo Beltran MD [address] [place] [address] [email or web address] Insurance Assigned Provider 09/19/20 06/17/23 Emely Barnes, RN [address] [place] [address] [email or web address] iCMP Beekeeper 07/27/21 08/10/21 documented as of this encounter Additional Source Comments The information contained in this document represents components of the legal health record. It is not the complete legal health record.[facility]
[2025-01-31 14:08] VITALS: BP 162/58; PULSE 63; TEMP 36.6; O2SAT 95; BMI 23.7
--- NOTE | 2025-01-31 14:08 | MHC.OFFWIV ---
Intake Vital Signs 01/31/25 14:08 Height 5 ft 6 in Weight 147 lb BMI 23.7 BP 162/58 H Blood Pressure Location Lt brachial Position Sitting Pulse 63 Pulse Source Pulse Oximeter Temp 97.8 F Temp Source Oral Pulse Oximetry (%) 95 Oxygen Delivery Method Room Air Intake Visit Reasons: ep uti Intake Note: pt presents with concern for recurrent UTI Patient Tobacco Use Status: Former Tobacco user Allergies bupropion (From Wellbutrin) Allergy (Verified 01/31/25 14:20) Chest Pain ciprofloxacin Allergy (Verified 01/31/25 14:20) Chest Pain IV/IM prednisone Allergy (Uncoded 11/25/24 09:46) Seizure Do you need a note to return to daycare/school/sports/work: No HPI ep uti HPI Details - The patient is a 69-year-old female presenting with recurrent urinary tract infections. - She experiences urinary tract infections multiple times each month, with a history of treatment using various antibiotics, including Bactrim. - She was recently seen here and started on Bactrim. Urine culture indicated sensitivity to this. About 1 week following completion of the antibiotics, she started to have recurrent symptoms. - Reports urinary frequency and urgency which started yesterday - A cystogram is planned to explore potential underlying causes - seeing urology on 02/20 - The patient reports persistent gastrointestinal issues, including diarrhea and constipation. - Scans have shown significant bulk in the colon, suggesting possible bowel obstruction or motility issues. - She denies fever, chills, abd pain, n/v/d, vaginal discharge, or bleeding. [facility] Medical History Recurrent urinary tract infection History of lung cancer Dyslipidemia History of adenomatous polyp of colon Hx of TIA (transient ischemic attack) and stroke History of seizure disorder Achalasia of esophagus Osteoporosis HTN (hypertension) KRISTEN on CPAP Asthma-COPD overlap syndrome GERD (gastroesophageal reflux disease) Surgical History S/P cardiac catheterization S/P partial lobectomy of lung H/O wrist surgery History of cholecystectomy Family History Mother Small cell lung cancer Father Stomach cancer Brother Diabetes Throat cancer Social History Household Members: Spouse and Children Housing: House Do you presently have visiting nurse or other home services: No Alcohol intake: current Alcohol intake frequency: does not drink Patient Tobacco Use Status: Former Tobacco user Years Smoked: 30 +/- e-Cigarette/Vaping Use: Never Used Substance Use Type: Marijuana Advance Directives Date on File: 04/21/22 service: No Current occupational status: retired Cognitive needs: No Hearing needs: No Vision needs: Yes Review of Systems Const All systems reviewed & are unremarkable except as noted in HPI and below Physical Exam Vital Signs: Last Vital Signs Temp 97.8 F 01/31/25 14:08 Pulse 63 01/31/25 14:08 BP 162/58 H 01/31/25 14:08 Pulse Ox 95 01/31/25 14:08 Oxygen Delivery Method Room Air 01/31/25 14:08 BMI result Body Mass Index 23.7 Const General: cooperative, healthy appearing and comfortable Resp Effort & Inspection: normal respiratory effort General: Yes bladder normal to palpation and Yes no CVA tenderness Bimanual exam- vagina & uterus: bladder normal to palpation Back/Spine/Pelvis Back: no CVA tenderness Skin General skin exam: no rashes or lesions noted Extrem General: Yes no clubbing, cyanosis or edema Psych Appearance: grossly normal Mental Status: mental status grossly normal Speech and movement: Normal speech and movement present Assessment & Plan Assessment & Plan (1) Recurrent urinary tract infection: Code(s): N39.0 - Urinary tract infection, site not specified Plan: Recurrent UTI. She will be seeing urology and having cystoscopy on 02/20. Last urine cx showed sensitivity to nitrofurantoin. Will send this. Discussed with patient and reviewed use. She can return to the clinic as needed if symptoms recur prior to her appointment with urology. All questions were answered and patient verbalizes understanding and agrees to plan. Orders: Orders Urine Culture Today R30.0 - Dysuria Coding Level of Care Code Est Pt Level 4 (87575) Diagnoses Recurrent urinary tract infection N39.0
== END 2025-01-31 15:03 | disposition home or self-care (01) ==
PROVIDERS: PCP Internal Medicine; Visit Provider Nurse Practitioner Family
DX: N39.0 Urinary tract infection, site not specified (principal); Z13.9 Encounter for screening, unspecified

== ENCOUNTER 2025-01-31 13:41 | Outpatient (REF) | payer MEDICARE, SELFPAY | END 2025-01-31 13:42 | disposition home or self-care (01) | LOC: HO.LAB 13:41 | PROVIDERS: PCP Internal Medicine | DX: N39.0 Urinary tract infection, site not specified (principal); R30.0 Dysuria | CPT/HCPCS: 81003; 87086; 87088; 87186; 99212 ==

== ENCOUNTER 2025-02-14 08:02 | Outpatient (REF) | payer MEDICARE, SELFPAY ==
--- OUTSIDE RECORDS SUMMARY | 2010-03-01 | XMS_ITS | Encounter Summary ---
Author Organization [facility] Address [address] [place] [address] Phone Care Team Providers Care Planner Intern Name Role Phone Unavailable Primary Care Provider Unavailabl e Encounter Details Date Type Department Care Team (Late st Contact Info) Description 03/01/2010 Hospital Encounter [facility],Outside Imaging 30 [place], [place] [phone] System, Provider Not In, [facility] [address] [address] Social History Tobacco Use Types Packs/Day Years [...] 1:41 PM EDT Vivi Thomas RN * [place] Suicide Severity Rating Scale (Screener/Recent Self-Report) Question [...] PM EST Office Visit [facility] [address] [place] [address] Efrain Melgar DO 22 [place] [address] [email or web address] documented as of this encounter Procedures Procedure [...] It is not the complete legal health record.[facility]
--- OUTSIDE RECORDS SUMMARY | 2012-01-30 | XMS_ITS | Encounter Summary ---
Author Organization [facility] Address [address] [place] [address] Phone Care Team Providers Care Director Of Hotel Operations Name Role Phone Unavailable Primary Care Provider Unavailabl e Encounter Details Date Type Department Care Team (Late st Contact Info) Description 01/30/2012 Hospital Encounter [facility],Outside Imaging 30 [place], [place] [phone] System, Provider Not In, [facility] [address] [address] Social History Tobacco Use Types Packs/Day Years [...] 1:41 PM EDT Vivi Thomas RN * [place] Suicide Severity Rating Scale (Screener/Recent Self-Report) Question [...] PM EST Office Visit [facility] [address] [place] [address] Efrain Melgar DO 22 [place] [address] [email or web address] documented as [...] It is not the complete legal health record.[facility]
[2025-02-14 10:46] LABS: Appearance Urine Cloudy; Glucose Urine UA Negative (Negative); PH 6.5 (5.0-9.0); Specific Gravity - Urine 1.015 (1.005-1.025); UMIC TRIGGER UACC YES
--- OUTSIDE RECORDS SUMMARY | 2025-02-14 10:47 | XMS_ITS | Encounter Summary ---
Author Organization [facility] Address [address] [place] [address] Phone Care Team Providers Care Pbx Mechanic Name Role Phone Giovanna Garcia NP Primary Care Provider [phone] Geronimo Beltran MD Unavailable [phone] Emely Barnes RN Unavailable [phone] Unknown, Unknown Primary Care Provider Hayley Couch MD Primary Care Provider Encounter Details Date Type Department Care Team (Late Contact Info) Description 03/20/2020 Procedure Pass [facility] [address] [place] [address] Social History Tobacco Use Types Packs/Day Years [...] PM EST Office Visit [facility] [address] [place] [address] Efrain Melgar DO [address] [place] [address] [email or web address] documented as of [...] documented as of this encounter Care Teams Pbx Mechanic Relationship Specialty Start Date End Date Giovanna Garcia NP [email or web address] PCP - General Family Medicine 11/15/17 08/22/23 Unknown, Unknown, MD PCP - General 08/23/23 03/07/24 Hayley Ni MD [address] [place] [address] PCP - General Internal Medicine 03/08/24 Geronimo Beltran MD [address] [place] [phone] [email or web address] Insurance Assigned Provider 09/19/20 06/17/23 Emely Barnes, RN [address] [place] [phone] [email or web address] [email or web address] Broadcast Field Supervisor 07/27/21 08/10/21 documented as of this encounter Additional Source Comments The information contained in this document represents components of the legal health record. It is not the complete legal health record.[facility]
--- OUTSIDE RECORDS SUMMARY | 2025-02-14 10:47 | XMS_ITS | Encounter Summary ---
Author Organization [facility] Address [address] [place] [address] Phone Care Team Providers Care Reinforcing Iron Worker Helper Name Role Phone Giovanna Garcia AUTOMOTIVE DESIGN DRAFTER Primary Care Provider Geronimo Beltran MD Unavailable [phone] Emely Barnes RN Unavailable [phone] Unknown, Unknown Primary Care Provider Hayley Couch MD Primary Care Provider Encounter Details Date Type Department Care Team (Latest Contact Info) Description 03/18/2020 Prep for Surgery [facility] [address] [place] [address] [address] Floor, [address] [place] [address] Radu Somers MD [address] [place] [address] [email or web address] Syncope and collapse (Primary Dx) Social History Tobacco Use Types Packs/Day Years [...] 1:40 PM EST Office Visit [facility] [address] [place] [address] [place] [address] Efrain Melgar DO [address] [place] [address] [email or web address] documented as of this encounter Visit Diagnoses Diagnosis Syncope and collapse- Primary documented in this encounter Additional Health Concerns Infection Onset Date Last Indicated Resolved Time CoV-Risk 03/05/2020 03/10/2020 03/19/2020 2:56 PM EDT [...] documented as of this encounter Care Teams Reinforcing Iron Worker Helper Relationship Specialty Start Date End Date Giovanna Garcia NP [email or web address] PCP - General Family Medicine 11/15/17 08/22/23 Unknown, Daax, PCP - General 08/23/23 03/07/24 Hayley Ni MD [facility] [place] [address] PCP - General Internal Medicine 03/08/24 Geronimo Beltran MD [address] [place] [phone] [email or web address] Insurance Assigned Provider 09/19/20 06/17/23 Emely Barnes, ABE [address] [place] [phone] [email or web address] iCMP Hot Room Attendant 07/27/21 08/10/21 documented as of this encounter Additional Source Comments The information contained in this document represents components of the legal health record. It is not the complete legal health record.[facility]
--- OUTSIDE RECORDS SUMMARY | 2025-02-14 10:47 | XMS_ITS | Encounter Summary ---
Author Organization [facility] Address [address] [place] [address] Phone Care Team Providers Care Instrumentation And Control Technician Name Role Phone Giovanna Garcia NP Primary Care Provider [phone] Geronimo Beltran MD Unavailable [phone] Unknown, Unknown Primary Care Provider Hayley Couch MD Primary Care Provider Encounter Details Date Type Department Care Team (Late st Contact Info) Description 02/09/2022 Transcribe Orders [facility] Laboratory [facility] [address] Jacky Little MD [address] [address] [email or web address] Social History Tobacco Use Types Packs/Day Years Used Date Smoking Tobacco: Former Cigarettes 1 45 0 09/06/1970 - 09/07/2015 Smokeless Tobacco: Never Alcohol Use Standard Drinks/Week Comments Never 0 (1 standard drink = 0.6 oz pur e alcohol) not even once a year Child or Family Care Answer Date Record ed Do you have problems with on e of the following making it difficult for you to work, study, or receive health care? No 08/10/2021 Education Answer Date Recorded Are you interested in help w ith more adult education (for example, completing high school, GED, job training, learning the Belarusian language, technical skills, or developing parenting skills)? No 08/10/2021 Food Answer Date Recorded Within the past [...] basis, and looking for work? No 08/10/2021 Comments No Sex and Gender Information Value [...] 1:40 PM EST Office Visit [facility] [address] [place] [address] [place] [address] Efrain Melgar, DO [address] [place] [address] documented as of this encounter Visit Diagnoses Not on filedocumented in this encounter Additional Health Concerns Infection Onset Date Last Indicated Resolved Time CoV-Risk 03/29/2022 03/29/2022 04/09/2022 1:22 AM EDT Assessment Noted Time PHQ-2 Depression Total Score: 2 08/11/19 9:20 AM EST documented as of this encounter Care Teams Instrumentation And Control Technician Relationship Specialty Start Date End Date Giovanna Garcia NP [email or web address] PCP - General Family Medicine 11/15/17 08/22/23 Unknown, Unknown, MD PCP - General 08/23/23 03/07/24 Hayley Ni MD [facility] [place] [address] PCP - General Internal Medicine 03/08/24 Geronimo Beltran MD [address] [place] [address] [email or web address] Insurance Assigned Provider 09/19/20 06/17/23 documented as of this encounter Additional Source Comments The information contained in this document represents components of the legal health record. It is not the complete legal health record.[facility]
--- OUTSIDE RECORDS SUMMARY | 2025-02-14 10:47 | XMS_ITS | Encounter Summary ---
Author Organization [facility] Address [address] [facility] [address] [place] [address] Phone Care Team Providers Care Band Shover Name Role Phone Giovanna Garcia NP Primary Care Provider [phone] Geronimo Beltran MD Unavailable [phone] Emely Barnes RN Unavailable [phone] Unknown, Unknown Primary Care Provider Hayley Couch MD Primary Care Provider Encounter Details Date Type Department Care Team (Late Contact Info) Description 03/20/2020 Procedure Pass [facility] [address] [place] [address] Social History Tobacco Use Types Packs/Day Years [...] PM EST Office Visit [facility] [address] [place] [address] Efrain Melgar DO 22 [place] [address] [email or web address] documented as of this encounter Visit Diagnoses [...] documented as of this encounter Care Teams Band Shover Relationship Specialty Start Date End Date Giovanna Garcia NP [email or web address] PCP - General Family Medicine 11/15/17 08/22/23 Unknown, Unknown, MD PCP - General 08/23/23 03/07/24 Hayley Ni MD [address] [place] [address] PCP - General Internal Medicine 03/08/24 Geronimo Beltran MD [address] [place] [address] [email or web address] Insurance Assigned Provider 09/19/20 06/17/23 Emely Barnes, RN [address] [place] [address] [email or web address] iCMP Pharm Tech 07/27/21 08/10/21 documented as of this encounter Additional Source Comments The information contained in this document represents components of the legal health record. It is not the complete legal health record.[facility]
--- OUTSIDE RECORDS SUMMARY | 2025-02-14 10:48 | XMS_ITS | Encounter Summary ---
Author Organization [facility] Address [address] [facility] [address] [place] [address] Phone Care Team Providers Care Biomass Power Plant Manager Name Role Phone Giovanna Garcia NP Primary Care Provider [phone] Geronimo Beltran MD Unavailable [phone] Emely Barnes RN Unavailable [phone] Unknown, Unknown Primary Care Provider Hayley Couch MD Primary Care Provider Encounter Details Date Type Department Care Team (Late st Contact Info) Description 03/17/2020 Procedure Pass [facility], [address] [address] Social History Tobacco Use Types Packs/Day Years [...] 1:40 PM EST Office Visit [facility] [address] Efrain Melgar DO [address] [place] [address] [email or web address] documented as of this encounter Visit Diagnoses [...] documented as of this encounter Care Teams Biomass Power Plant Manager Relationship Specialty Start Date End Date Giovanna Garcia NP [email or web address] PCP - General Family Medicine 11/15/17 08/22/23 Unknown, Unknown, MD PCP - General 08/23/23 03/07/24 Hayley Ni MD [facility] [place] [address] PCP - General Internal Medicine 03/08/24 Geronimo Beltran MD [address] [place] [address] [email or web address] Insurance Assigned Provider 09/19/20 06/17/23 Emely Barnes, ABE [address] [place] [address] [email or web address] iCMP Hot Head Machine Operator 07/27/21 08/10/21 documented as of this encounter Additional Source Comments The information contained in this document represents components of the legal health record. It is not the complete legal health record.[facility]
--- OUTSIDE RECORDS SUMMARY | 2025-02-14 10:48 | XMS_ITS | Encounter Summary ---
Author Organization [facility] Address [address] [facility] [facility] [address] [place] [address] Phone Care Team Providers Care Chief Console Operator Name Role Phone Giovanna Garcia SCIENCE SPECIALIST Primary Care Provider [phone] Geronimo Beltran MD Unavailable [phone] Emely Barnes RN Unavailable [phone] Unknown, Unknown Primary Care Provider Hayley Couch MD Primary Care Provider Encounter Details Date Type Department Care Team (Late st Contact Info) Description 04/21/2020 Transcribe Orders [facility]FT Lab 30 [place] [address] Ian Anderson MD, [place] [address] [id number] [email or web address] Social History Tobacco Use Types Packs/Day Years [...] PM EST Office Visit [facility] [address] [place] [address] Efrain Melgar DO 22 [place] [address] [email or web address] documented as of this encounter [...] documented as of this encounter Care Teams Chief Console Operator Relationship Specialty Start Date End Date Giovanna Garcia NP PCP - General Family Medicine 11/15/17 08/22/23 Unknown, Daxa, MD PCP - General 08/23/23 03/07/24 Hayley Ni MD [address] [facility] [place] [address] PCP - General Internal Medicine 03/08/24 Geronimo Beltran MD [address] [place] [address] [email or web address] Insurance Assigned Provider 09/19/20 06/17/23 Emely Barnes, RN [address] [place] [address] [email or web address] iCMP Metal Numerical Control Programmer 07/27/21 08/10/21 documented as of this encounter Additional Source Comments The information contained in this document represents components of the legal health record. It is not the complete legal health record.[facility]
--- OUTSIDE RECORDS SUMMARY | 2025-02-14 10:48 | XMS_ITS | Encounter Summary ---
Author Organization [facility] Address [address] [place] [address] Phone Care Team Providers Care Superintendent Logging Name Role Phone Giovanna Garcia NP Primary Care Provider [phone] Geronimo Beltran MD Unavailable Emely Barnes RN Unavailable [phone] Unknown, Unknown Primary Care Provider Hayley Couch MD Primary Care Provider Encounter Details Date Type Department Care Team (Late st Contact Info) Description 06/02/2020 Procedure Pass [facility], Ct Scan - [address] [address] Social History Tobacco Use Types Packs/Day Years [...] Date of Assessment Author No Risk Indicated 06/02/2020 3:39 PM EST Justino España RN * Bacon Suicide Severity Rating Scale (Screener/Recent Self-Report) Question Answer Date of Assessment Author 1. Wish to be (Past 1 Month) No 020 3:39 PM Justino Crawley RN 2. Non-Specific Active Suici jose Thoughts (Past 1 Month) No 06/02/2020 3:39 PM Justino Crawley RN 6. Suicidal Behavior (Lifetime) No 0 3:39 PM EST Justino España RN documented as of this encounter Plan of Treatment Upcoming Encounters Date Type Department Care Team (Late st Contact Info) Description 07/10/2025 1:40 PM EST Office Visit [facility] [address] [place] [address] Efrain Melgar DO [address] [place] [address] documented as of this encounter Visit Diagnoses Not on filedocumented in this encounter Additional Health Concerns Infection Onset Date Last Indicated Resolved Time CoV-Risk 03/09/2021 03/09/2021 03/19/2021 1:25 AM EDT CoV-Risk Comment:Per Ambulatory Triage Form 05/17/2021 05/19/202105/29 1:24 AM EST CoV-Risk Comment:Per Ambulatory Triage Form 07/01/2021 07/01/202107/01 4:31 PM EST COVID-19 07/01/2021 07/01/2021 07/22/2021 1:21 AM EST CoV-Risk 03/29/2022 03/29/2022 04/09/2022 1:22 AM EDT Assessment Noted Time PHQ-2 Depression Total Score: 0 07/25/19 2:25 PM EST documented as of this encounter Care Teams Superintendent Logging Relationship Specialty Start Date End Date Giovanna Garcia BREAKER MECHANIC PCP - General Family Medicine 11/15/17 08/22/23 Unknown, Unknown, MD PCP - General 08/23/23 03/07/24 Hayley Ni MD [address] [place] [address] [place] [address] PCP - General Internal Medicine 03/08/24 Geronimo Beltran MD [address] [place] [address] [email or web address] Insurance Assigned Provider 09/19/20 06/17/23 Emely Barnes, RN [address] [place] [address] [email or web address] iCMP Strategic Marketing Manager 07/27/21 08/10/21 documented as of this encounter Additional Source Comments The information contained in this document represents components of the legal health record. It is not the complete legal health record.[facility]
--- OUTSIDE RECORDS SUMMARY | 2025-02-14 10:48 | XMS_ITS | Encounter Summary ---
Author Organization [facility] Address [address] [facility] [address] [place] [address] Phone Care Team Providers Care Ranch Hand Name Role Phone Giovanna Garcia NP Primary Care Provider [phone] Geronimo Beltran MD Unavailable [phone] Emely Barnes RN Unavailable [phone] Unknown, Unknown Primary Care Provider Hayley Couch MD Primary Care Provider Encounter Details Date Type Department Care Team (Late st Contact Info) Description 09/27/2018 Procedure Pass [facility], [address] [address] Social History Tobacco Use Types Packs/Day Years Used Date Smoking Tobacco: Former Cigarettes 1 45 0 09/06/1970 - 09/07/2015 Smokeless Tobacco: Never Alcohol Use Standard Drinks/Week Comments Yes 0 (1 standard drink = 0.6 oz pur e alcohol) 4 drinks a year Comments No Sex and Gender [...] 1:40 PM EST Office Visit [facility] [address] [place] [address] Efrain Melgar DO [address] [place] [address] [email or web address] documented as of this encounter Visit Diagnoses [...] Noted Time PHQ-2 Depression Total Score: 0 09/20/19 10:43 AM EDT documented as of this encounter Care Teams Ranch Hand Relationship Specialty Start Date End Date Giovanna Garcia CUSTOM DRESSMAKER [email or web address] PCP - General Family Medicine 11/15/17 08/22/23 Unknown, Daxa, MD PCP - General 08/23/23 03/07/24 Hayley Ni MD [facility] [place] [address] PCP - General Internal Medicine 03/08/24 Geronimo Beltran MD [address] [place] [address] [email or web address] Insurance Assigned Provider 09/19/20 06/17/23 Emely Barnes, RN [address] [place] [address] [email or web address] iCMP Mva Reactor Operator Head 07/27/21 08/10/21 documented as of this encounter Additional Source Comments The information contained in this document represents components of the legal health record. It is not the complete legal health record.[facility]
--- OUTSIDE RECORDS SUMMARY | 2025-02-14 10:48 | XMS_ITS | Encounter Summary ---
Author Organization [facility] Address [address] [place] [address] Phone Care Team Providers Care Investor Relations Specialist Name Role Phone Giovanna Garcia NP Primary Care Provider [phone] Geronimo Beltran MD Unavailable [phone] Unknown, Unknown Primary Care Provider Hayley Couch MD Primary Care Provider Encounter Details Date Type Department Care Team (Late st Contact Info) Description 02/25/2022 Procedure Pass [facility] Interventional [facility]iology 30 [place] [address] Social History Tobacco Use Types Packs/Day Years [...] high school, GED, job training, learning the [place]eless language, technical skills, or developing parenting skills)? [...] 1:40 PM EST Office Visit [facility] [address] [place] [address] Efrain Melgar DO [address] [place] [address] documented as of this encounter Visit Diagnoses Not on filedocumented in this encounter Additional Health Concerns Infection Onset Date Last Indicated Resolved Time CoV-Risk 03/29/2022 03/29/2022 04/09/2022 1:22 AM EDT Assessment Noted Time PHQ-2 Depression Total Score: 2 08/11/19 9:20 AM EST documented as of this encounter Care Teams Investor Relations Specialist Relationship Specialty Start Date End Date Giovanna Garcia, LUGGAGE MAKER PCP - General Family Medicine 11/15/17 08/22/23 Unknown, Unknown, MD PCP - General 08/23/23 03/07/24 Hayley Ni MD [address] [place] [address] [place] [address] PCP - General Internal Medicine 03/08/24 Geronimo Beltran MD [address] [place] [address] [email or web address] Insurance Assigned Provider 09/19/20 06/17/23 documented as of this encounter Additional Source Comments The information contained in this document represents components of the legal health record. It is not the complete legal health record.[facility]
--- OUTSIDE RECORDS SUMMARY | 2025-02-14 10:48 | XMS_ITS | Encounter Summary ---
Author Organization [facility] Address [address] [place] [address] Phone Care Team Providers Care Sales Force Administrator Name Role Phone Giovanna Garcia NP Primary Care Provider [phone] Geronimo Beltran MD Unavailable [phone] Unknown, Unknown Primary Care Provider Hayley Couch MD Primary Care Provider Encounter Details Date Type Department Care Team (Late st Contact Info) Description 02/24/2022 Procedure Pass [facility] 30 [place] [address] Social History Tobacco Use Types Packs/Day Years [...] high school, GED, job training, learning the [place]ian language, technical skills, or developing parenting skills)? [...] 1:40 PM EST Office Visit [facility] [address] [place] [address] Efrain Melgar DO [address] [place] [address] documented as of this encounter Visit Diagnoses Not on filedocumented in this encounter Additional Health Concerns Infection Onset Date Last Indicated Resolved Time CoV-Risk 03/29/2022 03/29/2022 04/09/2022 1:22 AM EDT Assessment Noted Time PHQ-2 Depression Total Score: 2 08/11/19 9:20 AM EST documented as of this encounter Care Teams Sales Force Administrator Relationship Specialty Start Date End Date Giovanna Garcia, TWIST PACKER PCP - General Family Medicine 11/15/17 08/22/23 Unknown, Unknown, MD PCP - General 08/23/23 03/07/24 Hayley Ni MD [address] [place] [address] [place] [address] PCP - General Internal Medicine 03/08/24 Geronimo Beltran MD [address] [place] [address] [email or web address] Insurance Assigned Provider 09/19/20 06/17/23 documented as of this encounter Additional Source Comments The information contained in this document represents components of the legal health record. It is not the complete legal health record.[facility]
--- OUTSIDE RECORDS SUMMARY | 2025-02-14 10:48 | XMS_ITS | Encounter Summary ---
Author Organization [facility] Address [address] [facility] [address] [place] [address] Phone Care Team Providers Care Metal Control Worker Name Role Phone Giovanna Garcia NP Primary Care Provider [phone] Geronimo Beltran MD Unavailable [phone] Emely Barnes RN Unavailable [phone] Unknown, Unknown Primary Care Provider Hayley Couch MD Primary Care Provider Encounter Details Date Type Department Care Team (Late st Contact Info) Description 02/01/2021 Procedure Pass [facility], [address] [address] Social History Tobacco Use Types Packs/Day Years [...] 1:40 PM EST Office Visit [facility] [place] [address] Efrain Melgar DO 22 [place] [address] [email or web address] documented as of [...] documented as of this encounter Care Teams Metal Control Worker Relationship Specialty Start Date End Date Giovanna Garcia NP [email or web address] PCP - General Family Medicine 11/15/17 08/22/23 Unknown, Unknown, PCP - General 08/23/23 03/07/24 Hayley Ni MD [facility] [place] [address] PCP - General Internal Medicine 03/08/24 Geronimo Beltran MD [address] [place] [address] [email or web address] Insurance Assigned Provider 09/19/20 06/17/23 Emely Barnes, RN [address] [place] [address] iCMP Roll Contour Grinder 07/27/21 08/10/21 documented as of this encounter Additional Source Comments The information contained in this document represents components of the legal health record. It is not the complete legal health record.[facility]
--- OUTSIDE RECORDS SUMMARY | 2025-02-14 10:48 | XMS_ITS | Encounter Summary ---
Author Organization [facility] Address [address] [place] [address] Phone Care Team Providers Care Paper Bag Machine Operator Name Role Phone Giovanna Garcia NP Primary Care Provider [phone] Geronimo Beltran MD Unavailable [phone] Emely Barnes RN Unavailable [phone] Unknown, Unknown Primary Care Provider Hayley Couch MD Primary Care Provider Reason for Referral * MRI/CAT Scan - Closed Specialty Diagnoses / Procedures Referred By Braulio t Referred To Contact Procedures CT Neck Outside (No Interpretation) System, Provider Not In, PhD [address] [address] Referral ID Status Reason Start Date Expiration Date Visits Re quested Visits Authorized [id number] Closed 10/04/2018 10/04/2019 1 1 Encounter Details Date Type Department Care Team (Late st Contact Info) Description 10/04/2018 Ancillary Orders [facility],Outside Imaging [address] [place], [place] [phone] System, Provider Not In, PhD [facility] [employer] [address] Social History Tobacco Use Types Packs/Day Years [...] 1:40 PM EST Office Visit [facility] [address] [place] [address] Efrain Melgar DO [address] [place] [address] [email or web address] documented as of this encounter Results * CT Neck Outside (No Interpretation) (09/27/2013 12:00 AM EDT) Narrative SYSTEMGENERATED, DOCUMENTATION - 10/04/2018 1:28 PM EDT This study is for PACS [...] documented as of this encounter Care Teams Paper Bag Machine Operator Relationship Specialty Start Date End Date Giovanna Garcia NP [email or web address] PCP - General Family Medicine 11/15/17 08/22/23 Unknown, Unknown, MD PCP - General 08/23/23 03/07/24 Hayley Ni MD [address] [place] [address] [place] [address] PCP - General Internal Medicine 03/08/24 Geronimo Beltran MD [address] [place] [address] [email or web address] Insurance Assigned Provider 09/19/20 06/17/23 Emely Barnes, RN [address] [place] [address] [email or web address] iCMP Automotive Window Tinter 07/27/21 08/10/21 documented as of this encounter Additional Source Comments The information contained in this document represents components of the legal health record. It is not the complete legal health record.[facility]
--- OUTSIDE RECORDS SUMMARY | 2025-02-14 10:48 | XMS_ITS | Encounter Summary ---
Author Organization [facility] Address [address] [facility] [address] [place] [address] Phone Care Team Providers Care Traffic Director Name Role Phone Geronimo Beltran MD Primary Care Provider [phone] Giovanna Garcia NP Primary Care Provider [phone] Geronimo Beltran MD Unavailable [phone] Emely Barnes RN Unavailable [phone] Unknown, Unknown Primary Care Provider Hayley Couch MD Primary Care Provider Encounter Details Date Type Department Care Team (Late Contact Info) Description 10/12/2017 Procedure Pass [facility], Ct Scan - [address] [address] Social History Tobacco Use Types Packs/Day Years [...] PM EST Office Visit [facility] [address] [place] [address] Efrain Melgar DO 22 [place] [address] documented as of this encounter Visit Diagnoses [...] documented as of this encounter Care Teams Traffic Director Relationship Specialty Start Date End Date Geronimo Beltran MD [address] [place] [address] [email or web address] PCP - General Internal Medicine 09/08/17 11/14/17 Giovanna Garcia NP [address] [place] [address] [email or web address] PCP - General Family Medicine 11/15/17 08/22/23 Unknown, Daxa, PCP - General 08/23/23 03/07/24 Hayley Ni MD [address] [place] [address] [place] [address] PCP - General Internal Medicine 03/08/24 Geronimo Beltran MD [address] [place] [address] [email or web address] Insurance Assigned Provider 09/19/20 06/17/23 Emely Barnes, RN [address] [place] [address] [email or web address] iCMP Homebound Teacher 07/27/21 08/10/21 documented as of this encounter Additional Source Comments The information contained in this document represents components of the legal health record. It is not the complete legal health record.[facility]
--- OUTSIDE RECORDS SUMMARY | 2025-02-14 10:48 | XMS_ITS | Encounter Summary ---
Author Organization [facility] Address [address] [facility] [address] [place] [address] Phone Care Team Providers Care Senior Medical Technologist Name Role Phone Giovanna Garcia NP Primary Care Provider [phone] Geronimo Beltran MD Unavailable [phone] Emely Barnes RN Unavailable [phone] Unknown, Unknown Primary Care Provider Hayley Couch MD Primary Care Provider Encounter Details Date Type Department Care Team (Late Contact Info) Description 09/30/2020 Procedure Pass [facility] [address] [place] [address] Social History Tobacco Use Types Packs/Day Years [...] PM EST Office Visit [facility] [address] [place] [address] [place] [address] [email or web address] documented as of this encounter Visit Diagnoses [...] documented as of this encounter Care Teams Senior Medical Technologist Relationship Specialty Start Date End Date Giovanna Garcia NP [email or web address] PCP - General Family Medicine 11/15/17 08/22/23 Unknown, Daxa, PCP - General 08/23/23 03/07/24 Hayley Ni MD [facility] [place] [address] PCP - General Internal Medicine 03/08/24 Geronimo Beltran MD [address] [place] [address] [email or web address] Insurance Assigned Provider 09/19/20 06/17/23 Emely Barnes, ABE [address] [place] [address] iCMP Combination Operator 07/27/21 08/10/21 documented as of this encounter Additional Source Comments The information contained in this document represents components of the legal health record. It is not the complete legal health record.[facility]
--- OUTSIDE RECORDS SUMMARY | 2025-02-14 10:48 | XMS_ITS | Encounter Summary ---
Author Organization [facility] Address [address] [facility] [address] [place] [address] Phone Care Team Providers Care Engineering Drafter Name Role Phone Giovanna Garcia NP Primary Care Provider [phone] Geronimo Beltran MD Unavailable [phone] Emely Barnes RN Unavailable [phone] Unknown, Unknown Primary Care Provider Hayley Couch MD Primary Care Provider Encounter Details Date Type Department Care Team (Late st Contact Info) Description 09/10/2018 Procedure Pass [facility], [address] [address] Social History Tobacco Use Types Packs/Day Years [...] 1:40 PM EST Office Visit [facility] [address] [place] [address] Efrain Melgar DO [address] [place] [address] [email or web address] documented as of this encounter Visit Diagnoses [...] documented as of this encounter Care Teams Engineering Drafter Relationship Specialty Start Date End Date Giovanna Garcia CLERK OF COURT [email or web address] PCP - General Family Medicine 11/15/17 08/22/23 Unknown, Daxa, MD PCP - General 08/23/23 03/07/24 Hayley Ni MD [facility] [place] [address] PCP - General Internal Medicine 03/08/24 Geronimo Beltran MD [address] [place] [address] [email or web address] Insurance Assigned Provider 09/19/20 06/17/23 Emely Barnes, RN [address] [place] [address] [email or web address] iCMP Legal Executive Assistant 07/27/21 08/10/21 documented as of this encounter Additional Source Comments The information contained in this document represents components of the legal health record. It is not the complete legal health record.[facility]
--- OUTSIDE RECORDS SUMMARY | 2025-02-14 10:48 | XMS_ITS | Encounter Summary ---
Author Organization [facility] Address [address] [place] [address] Phone Care Team Providers Care Mva Reactor Operator Head Name Role Phone Giovanna Garcia NP Primary Care Provider [phone] Geronimo Beltran MD Unavailable [phone] Unknown, Unknown Primary Care Provider Hayley Couch MD Primary Care Provider Encounter Details Date Type Department Care Team (Late st Contact Info) Description 11/02/2021 Procedure Pass Non-Invasive Cardiology [address] [place] [id number] Social History Tobacco Use Types Packs/Day Years [...] high school, GED, job training, learning the [place] language, technical skills, or developing parenting skills)? [...] PM EST Office Visit [facility] [address] [place] [address] Efrain Melgar DO 22 [place] [address] documented as of this encounter Visit Diagnoses Not on filedocumented in this encounter Additional Health Concerns Infection Onset Date Last Indicated Resolved Time CoV-Risk 03/29/2022 03/29/2022 04/09/2022 1:22 AM EDT Assessment Noted Time PHQ-2 Depression Total Score: 2 08/11/19 22 9:20 AM EST documented as of this encounter Care Teams Mva Reactor Operator Head Relationship Specialty Start Date End Date Giovanna Garcia, DINING SERVER PCP - General Family Medicine 11/15/17 08/22/23 Unknown, Unknown, MD PCP - General 08/23/23 03/07/24 Hayley Ni MD [facility] [place] [address] PCP - General Internal Medicine 03/08/24 Geronimo Beltran MD [address] [place] [address] [email or web address] Insurance Assigned Provider 09/19/20 06/17/23 documented as of this encounter Additional Source Comments The information contained in this document represents components of the legal health record. It is not the complete legal health record.[facility]
--- OUTSIDE RECORDS SUMMARY | 2025-02-14 10:48 | XMS_ITS | Encounter Summary ---
Author Organization [facility] Address [address] [facility] [address] [place] [address] Phone Care Team Providers Care Marketing Representative Name Role Phone Giovanna Garcia NP Primary Care Provider [phone] Geronimo Beltran MD Unavailable [phone] Emely Barnes RN Unavailable [phone] Unknown, Unknown Primary Care Provider Hayley Couch MD Primary Care Provider Encounter Details Date Type Department Care Team (Late st Contact Info) Description 04/07/2020 Procedure Pass Non-Invasive Cardiology [address] [place] [address] Social History Tobacco Use Types Packs/Day Years [...] PM EST Office Visit [facility] [address] [place] [address] Efrain Melgar DO 22 [place] [address] [email or web address] documented as of this encounter Visit Diagnoses [...] documented as of this encounter Care Teams Marketing Representative Relationship Specialty Start Date End Date Giovanna Garcia NP [email or web address] PCP - General Family Medicine 11/15/17 08/22/23 Unknown, Unknown, PCP - General 08/23/23 03/07/24 Hayley Ni MD [facility] [place] [address] PCP - General Internal Medicine 03/08/24 Geronimo Beltran MD [address] [place] [address] Insurance Assigned Provider 09/19/20 06/17/23 Emely Barnes, RN [address] [place] [address] [facility] Aqu[facility] Specialist 07/27/21 08/10/21 documented as of this encounter Additional Source Comments The information contained in this document represents components of the legal health record. It is not the complete legal health record.[facility]
--- OUTSIDE RECORDS SUMMARY | 2025-02-14 10:48 | XMS_ITS | Encounter Summary ---
Author Organization [facility] Address [address] [facility] [address] [place] [address] Phone Care Team Providers Care Business Strategist Name Role Phone Giovanna Garcia NP Primary Care Provider [phone] Geronimo Beltran MD Unavailable [phone] Emely Barnes RN Unavailable [phone] Unknown, Unknown Primary Care Provider Hayley Couch MD Primary Care Provider Encounter Details Date Type Department Care Team (Late st Contact Info) Description 03/27/2020 Procedure Pass [facility], [address] [address] Social History Tobacco Use Types Packs/Day Years [...] 1:40 PM EST Office Visit [facility] [address] Efrain Melgar DO 22 [place] [address] [email or web address] documented as of this encounter Visit Diagnoses [...] documented as of this encounter Care Teams Business Strategist Relationship Specialty Start Date End Date Giovanna Garcia NP [email or web address] PCP - General Family Medicine 11/15/17 08/22/23 Unknown, Unknown, PCP - General 08/23/23 03/07/24 Hayley Ni MD [address] [facility] [address] PCP - General Internal Medicine 03/08/24 Geronimo Beltran MD [address] [place] [address] [email or web address] Insurance Assigned Provider 09/19/20 06/17/23 Emely Barnes, RN [address] [place] [address] [email or web address] iCMP Maintenance [employer] 07/27/21 08/10/21 documented as of this encounter Additional Source Comments The information contained in this document represents components of the legal health record. It is not the complete legal health record.[facility]
--- OUTSIDE RECORDS SUMMARY | 2025-02-14 10:48 | XMS_ITS | Encounter Summary ---
Author Organization [facility] Address [address] [facility] [address] [place] [address] Phone Care Team Providers Care Scientific Process Operator Name Role Phone Giovanna Garcia NP Primary Care Provider [phone] Geronimo Beltran MD Unavailable [phone] Emely Barnes RN Unavailable [phone] Unknown, Unknown Primary Care Provider Hayley Couch MD Primary Care Provider Encounter Details Date Type Department Care Team (Late Contact Info) Description 09/24/2020 Procedure Pass [facility] 30 [place] [address] Social History Tobacco Use Types Packs/Day Years [...] PM EST Office Visit [facility] [address] [place] [address] [place] [address] [email or web address] documented as of this encounter Visit Diagnoses [...] documented as of this encounter Care Teams Scientific Process Operator Relationship Specialty Start Date End Date Giovanna Garcia NP [email or web address] PCP - General Family Medicine 11/15/17 08/22/23 Unknown, Daxa, PCP - General 08/23/23 03/07/24 Hayley Ni MD [facility] [place] [address] PCP - General Internal Medicine 03/08/24 Geronimo Beltran MD [address] [place] [address] [email or web address] Insurance Assigned Provider 09/19/20 06/17/23 Emely Barnes, ABE [address] [place] [address] iCMP College Tutor 07/27/21 08/10/21 documented as of this encounter Additional Source Comments The information contained in this document represents components of the legal health record. It is not the complete legal health record.[facility]
--- OUTSIDE RECORDS SUMMARY | 2025-02-14 10:48 | XMS_ITS | Encounter Summary ---
Author Organization [facility] Address [address] [facility] [address] [place] [address] Phone Care Team Providers Care Business Ethics Professor Name Role Phone Giovanna Garcia NP Primary Care Provider [phone] Geronimo Beltran MD Unavailable [phone] Emely Barnes RN Unavailable [phone] Unknown, Unknown Primary Care Provider Hayley Couch MD Primary Care Provider Encounter Details Date Type Department Care Team (Late st Contact Info) Description 04/01/2020 Procedure Pass Non-Invasive Cardiology [address] [place] [address] Social History Tobacco Use Types Packs/Day Years [...] PM EST Office Visit [facility] [address] [place] [address] Efrain Melgar DO 22 [place] [address] [email or web address] documented as of this encounter Visit Diagnoses [...] as of this encounter Care Teams Business Ethics Professor Relationship Specialty Start Date End Date Giovanna Garcia NP [email or web address] PCP - General Family Medicine 11/15/17 08/22/23 Unknown, Unknown, PCP - General 08/23/23 03/07/24 Hayley Ni MD [facility] [place] [address] PCP - General Internal Medicine 03/08/24 Geronimo Beltran MD [address] [place] [address] Insurance Assigned Provider 09/19/20 06/17/23 Emely Barnes, RN [address] [place] [address] [facility] 07/27/21 08/10/21 documented as of this encounter Additional Source Comments The information contained in this document represents components of the legal health record. It is not the complete legal health record.[facility]
--- OUTSIDE RECORDS SUMMARY | 2025-02-14 10:48 | XMS_ITS | Encounter Summary ---
Author Organization [facility] Address [address] [facility] [address] [place] [address] Phone Care Team Providers Care Bridge Opener Name Role Phone Giovanna Garcia EPIC KALEIDOSCOPE ANALYST Primary Care Provider [phone] Geronimo Beltran MD Primary Care Provider [phone] Giovanna Garcia EPIC KALEIDOSCOPE ANALYST Primary Care Provider [phone] Geronimo Beltran MD Unavailable [phone] Emely Barnes RN Unavailable [phone] Unknown, Unknown Primary Care Provider Hayley Couch MD Primary Care Provider Encounter Details Date Type Department Care Team (Late st Contact Info) Description 09/05/2017 Procedure Pass [place] Admitting Dept - Virtual Department [address] [place] [address] Social History Tobacco Use Types Packs/Day Years Used Date Smoking Tobacco: Former Cigarettes 1 45 0 09/06/1970 - 09/07/2015 Smokeless Tobacco: Never Alcohol Use Standard Drinks/Week Comments No 0 (1 standard drink = 0.6 oz pur e alcohol) Comments Unknown Sex and Gender Information Value [...] PM EST Office Visit [facility] 22 [place] [address] Efrain Melgar DO 22 [place] [address] [email or web address] documented as of this encounter Visit Diagnoses [...] documented as of this encounter Care Teams Bridge Opener Relationship Specialty Start Date End Date Giovanna Garcia NP [email or web address] PCP - General Family Medicine 08/18/17 09/07/17 Geronimo Beltran MD 40 [place] [address] [email or web address] PCP - General Internal Medicine 09/08/17 11/14/17 Giovanna Garcia NP PCP - General Family Medicine 11/15/17 08/22/23 Unknown, Daxa, PCP - General 08/23/23 03/07/24 Hayley Ni MD [facility] [place] [address] PCP - General Internal Medicine 03/08/24 Geronimo Beltran MD [address] [place] [address] [email or web address] Insurance Assigned Provider 09/19/20 06/17/23 Emely Barnes, RN [address] [place] [address] [email or web address] iCMP Data Specialist 07/27/21 08/10/21 documented as of this encounter Additional Source Comments The information contained in this document represents components of the legal health record. It is not the complete legal health record.[facility]
--- OUTSIDE RECORDS SUMMARY | 2025-02-14 10:49 | XMS_ITS | Encounter Summary ---
Author Organization [facility] Address [address] [place] [address] Phone Care Team Providers Care Industrial Furnace Fabricator Name Role Phone Giovanna Garcia NP Primary Care Provider [phone] Geronimo Beltran MD Unavailable [phone] Unknown, Unknown Primary Care Provider Hayley Couch MD Primary Care Provider Encounter Details Date Type Department Care Team (Late st Contact Info) Description 11/02/2021 Ancillary Orders [facility] [address] Floor, [address] [place] [address] Patrice Quintero MD [address] [place] [phone] [email or web address] Social History Tobacco Use Types Packs/Day Years [...] high school, GED, job training, learning the [place]cuad[place] language, technical skills, or developing parenting skills)? [...] PM EST Office Visit [facility] 22 [place] [address] Efrain Melgar DO 22 [place] [address] documented as of this encounter Visit Diagnoses Not on filedocumented in this encounter Additional Health Concerns Infection Onset Date Last Indicated Resolved Time CoV-Risk 03/29/2022 03/29/2022 04/09/2022 1:22 AM EDT Assessment Noted Time PHQ-2 Depression Total Score: 2 08/11/19 22 9:20 AM EST documented as of this encounter Care Teams Industrial Furnace Fabricator Relationship Specialty Start Date End Date Giovanna Garcia NP [email or web address] PCP - General Family Medicine 11/15/17 08/22/23 Unknown, Unknown, MD PCP - General 08/23/23 03/07/24 Hayley Ni MD [facility] [place] [address] PCP - General Internal Medicine 03/08/24 Geronimo Beltran MD [address] [place] [address] [email or web address] Insurance Assigned Provider 09/19/20 06/17/23 documented as of this encounter Additional Source Comments The information contained in this document represents components of the legal health record. It is not the complete legal health record.[facility]
--- OUTSIDE RECORDS SUMMARY | 2025-02-14 10:49 | XMS_ITS | Encounter Summary ---
Author Organization [facility] Address [address] [place] [address] Phone Care Team Providers Care Drawing Tender Name Role Phone Giovanna Garcia PRECISION ASSEMBLER Primary Care Provider [phone] Geronimo Beltran MD Unavailable [phone] Emely Barnes RN Unavailable [phone] Unknown, Unknown Primary Care Provider Hayley Couch MD Primary Care Provider Encounter Details Date Type Department Care Team (Late st Contact Info) Description 11/16/2020 Ancillary Orders [facility] [address] [facility] 3rd Floor, [address] [place] [address] Patrice Quintero MD [address] [place] [phone] [email or web address] Social History Tobacco Use Types Packs/Day Years [...] PM EST Office Visit [facility] [address] [place] [address] [place] [address] [email or web address] documented as of this encounter Visit Diagnoses [...] documented as of this encounter Care Teams Drawing Tender Relationship Specialty Start Date End Date Giovanna Garcia NP PCP - General Family Medicine 11/15/17 08/22/23 Unknown, Unknown, MD PCP - General 08/23/23 03/07/24 Hayley Ni MD [facility] [address] [place] PCP - General Internal Medicine 03/08/24 Geronimo Beltran MD [address] [place] [address] [email or web address] Insurance Assigned Provider 09/19/20 06/17/23 Emely Barnes, RN [address] [place] [address] [email or web address] iCMP Wireless Sales Representative 07/27/21 08/10/21 documented as of this encounter Additional Source Comments The information contained in this document represents components of the legal health record. It is not the complete legal health record.[facility]
--- OUTSIDE RECORDS SUMMARY | 2025-02-14 10:49 | XMS_ITS | Encounter Summary ---
Author Organization [facility] Address [address] [place] [address] Phone Care Team Providers Care Economic Historian Name Role Phone Giovanna Garcia NP Primary Care Provider [phone] Geronimo Beltran MD Unavailable [phone] Unknown, Unknown Primary Care Provider Hayley Couch MD Primary Care Provider Encounter Details Date Type Department Care Team (Latest Contact Info) Description 11/02/2021 Ancillary Orders Non-Invasive Cardiology [address] [place] [address] Patrice Quintero MD [address] [place] [address] [email or web address] Syncope and collapse; Paroxysmal atrial fibrillation Social History Tobacco Use Types Packs/Day Years [...] high school, GED, job training, learning the Tajik language, technical skills, or developing parenting skills)? [...] 1:40 PM EST Office Visit [facility] [address] [place] [address] Efrain Melgar DO [address] [place] [address] documented as of this encounter Results * DEVICE CHECK: ILR IN-HOME INTERROGATION (02/02/2022 12:23 PM EDT) Narrative Radu Denise DO - 02/08/2022 9:50 AM EDT Remote interrogation of implantable loop recorder. Reason for implant: Syncope Box Blank Machine Operator: [employer] Symptoms: 0 Pauses: 0 Bradycardia: 0 Tachycardia: 0 AT/AF: 0 Battery status: OK Additional comments: Device functioning appropriately. On Eliquis Normal device function. Patient to follow-up for continued monitoring every 1 month. Report prepared by Lisa Nelson RN us Patrice Quintero MD CV CARDIAC SERVICES ORDER LEILA Final Result documented in this encounter Visit Diagnoses Diagnosis Syncope and collapse Paroxysmal atrial fibrillation Atrial fibrillation Paroxysmal atrial fibrillation Atrial fibrillation documented in this encounter Additional Health Concerns Infection Onset Date Last Indicated Resolved Time CoV-Risk 03/29/2022 03/29/2022 04/09/2022 1:22 AM EDT Assessment Noted Time PHQ-2 Depression Total Score: 2 08/11/19 22 9:20 AM EST documented as of this encounter Care Teams Economic Historian Relationship Specialty Start Date End Date Giovanna Garcia NP PCP - General Family Medicine 11/15/17 08/22/23 Unknown, Unknown, MD PCP - General 08/23/23 03/07/24 Hayley Ni MD [address] [place] [address] [place] [address] PCP - General Internal Medicine 03/08/24 Geronimo Beltran MD [address] [place] [address] [email or web address] Insurance Assigned Provider 09/19/20 06/17/23 documented as of this encounter Additional Source Comments The information contained in this document represents components of the legal health record. It is not the complete legal health record.[facility]
--- OUTSIDE RECORDS SUMMARY | 2025-02-14 10:49 | XMS_ITS | Encounter Summary ---
Author Organization [facility] Address [address] [place] [address] Phone Care Team Providers Care Partnership Manager Name Role Phone Giovanna Garcia NP Primary Care Provider [phone] Geronimo Beltran MD Unavailable [phone] Emely Barnes RN Unavailable [phone] Unknown, Unknown Primary Care Provider Hayley Couch MD Primary Care Provider Encounter Details Date Type Department Care Team (Late st Contact Info) Description 08/10/2021 Procedure Pass [address] [place] [address] Social History Tobacco Use Types Packs/Day Years [...] high school, GED, job training, learning the Turkmen language, technical skills, or developing parenting skills)? [...] your housing situation today? I have young alvarez 08/10/2021 How many times have you move [...] 1:40 PM EST Office Visit [facility] [address] [place] [address] Efrain Melgar DO [address] [place] [address] documented as of this encounter Visit Diagnoses Not on filedocumented in this encounter Additional Health Concerns Infection Onset Date Last Indicated Resolved Time CoV-Risk 03/29/2022 03/29/2022 04/09/2022 1:22 AM EDT Assessment Noted Time PHQ-2 Depression Total Score: 2 08/11/19 22 9:20 AM EST documented as of this encounter Care Teams Partnership Manager Relationship Specialty Start Date End Date Giovanna Garcia, VALVE MAKER [email or web address] PCP - General Family Medicine 11/15/17 08/22/23 Unknown, Daxa, MD PCP - General 08/23/23 03/07/24 Hayley Ni MD [address] [place] [address] [place] [address] PCP - General Internal Medicine 03/08/24 Geronimo Beltran MD [address] [place] [address] [email or web address] Insurance Assigned Provider 09/19/20 06/17/23 Emely Barnes, RN [address] [place] [address] [email or web address] iCMP Campus President 07/27/21 08/10/21 documented as of this encounter Additional Source Comments The information contained in this document represents components of the legal health record. It is not the complete legal health record.[facility]
--- OUTSIDE RECORDS SUMMARY | 2025-02-14 10:49 | XMS_ITS | Encounter Summary ---
Author Organization [facility] Address [address] [place] [address] Phone Care Team Providers Care Light Rail Operator Name Role Phone Giovanna Garcia NP Primary Care Provider [phone] Geronimo Beltran MD Unavailable [phone] Emely Barnes RN Unavailable [phone] Unknown, Unknown Primary Care Provider Hayley Couch MD Primary Care Provider Encounter Details Date Type Department Care Team (Late st Contact Info) Description 12/26/2019 Ancillary [facility] [address] Floor, [address] [place] [address] Diana Hopkins, STRUCTURAL WORKER [address] [place] [address] [email or web address] Palpitations Social History Tobacco Use Types Packs/Day Years [...] 1:40 PM EST Office Visit [facility] [address] [place] [address] Efrain Melgar DO 22 [place] [address] [email or web address] Backoffice Scheduled Orders Name Type Priority Associated Diagnoses Orde r Schedule MCT (Mobile Cardiac Telemetry) Cardiac Monitors Routine Palpitations Expected: 12/19/2019, Expires: 03/20/2020 documented as of this encounter Visit Diagnoses Diagnosis Palpitations documented in this encounter Additional Health Concerns Infection Onset Date Last Indicated Resolved Time CoV-Risk 12/30/2019 12/30/2019 01/13/2020 1:24 AM EDT [...] documented as of this encounter Care Teams Light Rail Operator Relationship Specialty Start Date End Date Giovanna Garcia, COMMERCIAL ROOFER PCP - General Family Medicine 11/15/17 08/22/23 Unknown, Unknown, MD PCP - General 08/23/23 03/07/24 Hayley Ni MD [address] [place] [address] [place] [address] PCP - General Internal Medicine 03/08/24 Geronimo Beltran MD [address] [place] [address] [email or web address] Insurance Assigned Provider 09/19/20 06/17/23 Emely Barnes, RN [address] [place] [address] [email or web address] iCMP Re Examiner 07/27/21 08/10/21 documented as of this encounter Additional Source Comments The information contained in this document represents components of the legal health record. It is not the complete legal health record.[facility]
--- OUTSIDE RECORDS SUMMARY | 2025-02-14 10:49 | XMS_ITS | Encounter Summary ---
Author Organization [facility] Address [address] [facility] [address] [place] [address] Phone Care Team Providers Care Damper Worker Name Role Phone Hayley Ni MD Primary Care Provider Reason for Visit * Reason Comments Medication Refill Encounter Details Date Type Department Care Team (Late st Contact Info) Description 12/20/2024 Refill [facility] [address] [place] [address] Efrain Melgar, DO [address] [place] [address] [email or web address] Medication Refill Social History Tobacco Use Types Packs/Day Years [...] fi le documented as of this encounter Progress Notes * Isabell Cortez MA - 12/20/2024 8:16 AM EDT Rx Care Gap Status - Instructions for Clinical Staff (prescriber discretion applies): n/a Visit Info Last visit: 09/23/2024 Efrain Melgar DO - Endocrinology [facility] > Requested f/u: Return in about 3 months (around 12/23/2024) for Osteoporosis. Upcoming visit: 01/09/2025 Efrain Melgar DO - Endocrinology [facility] ACTIONS TAKEN BY Isabell Cortez MA - Refill protocol passed: no action needed. Vitamins, Minerals, Supplements, OTCs Rx Protocol - ergocalciferol (vitamin D2) Criteria met; renew for up to 12 months. Visit in the past 24 months: Yes documented in this encounter Plan of Treatment Upcoming Encounters Date Type Department Care Team (Late st Contact Info) Description 07/10/2025 1:40 PM EST Office Visit [facility] [address] [place] [address] [place] [address] Efrain Melgar DO [address] [place] [address] [email or web address] documented as of this encounter Visit Diagnoses Diagnosis Vitamin D deficiency documented in this encounter Additional Health Concerns Assessment Noted Time PHQ-2 Depression Total Score: 2 08/11/19 9:20 AM EST documented as of this encounter Care Teams Damper Worker Relationship Specialty Start Date End Date Hayley Ni MD [address] [place] [address] [place] [address] PCP - General Internal Medicine 03/08/24 documented as of this encounter Additional Source Comments The information contained in this document represents components of the legal health record. It is not the complete legal health record.[facility]
--- OUTSIDE RECORDS SUMMARY | 2025-02-14 10:49 | XMS_ITS | Encounter Summary ---
Author Organization [facility] Address [address] [place] [address] Phone Care Team Providers Care Hide Inspector Name Role Phone Geronimo Beltran MD Primary Care Provider [phone] Giovanna Garcia NP Primary Care Provider [phone] Geronimo Beltran MD Unavailable [phone] Emely Barnes RN Unavailable [phone] Unknown, Unknown Primary Care Provider Hayley Couch MD Primary Care Provider Encounter Details Date Type Department Care Team (Late st Contact Info) Description 09/08/2017 Procedure Pass [facility], Ct Scan - [address] [address] Social History Tobacco Use Types Packs/Day Years [...] 1:40 PM EST Office Visit [facility] [address] [place] [address] Efrain Melgar DO [address] [place] [address] [email or web address] documented as of this encounter Visit Diagnoses [...] documented as of this encounter Care Teams Hide Inspector Relationship Specialty Start Date End Date Geronimo Beltran MD [address] [place] [address] [email or web address] PCP - General Internal Medicine 09/08/17 11/14/17 Giovanna Garcia, SKIVER SOCK LININGS [address] [place] [address] [email or web address] PCP - General Family Medicine 11/15/17 08/22/23 Unknown, Daxa, MD PCP - General 08/23/23 03/07/24 Hayley Ni MD [address] [place] [address] [place] [address] PCP - General Internal Medicine 03/08/24 Geronimo Beltran MD [address] [place] [address] [email or web address] Insurance Assigned Provider 09/19/20 06/17/23 Emely Barnes, RN [address] [place] [address] [email or web address] iCMP Paper Bag Press Operator 07/27/21 08/10/21 documented as of this encounter Additional Source Comments The information contained in this document represents components of the legal health record. It is not the complete legal health record.[facility]
--- OUTSIDE RECORDS SUMMARY | 2025-02-14 10:49 | XMS_ITS | Encounter Summary ---
Author Organization [facility] Address [address] [place] [address] Phone Care Team Providers Care A P Mechanic Name Role Phone Giovanna Garcia NP Primary Care Provider Geronimo Beltran MD Unavailable [phone] Emely Barnes RN Unavailable [phone] Unknown, Unknown Primary Care Provider Hayley Couch MD Primary Care Provider Encounter Details Date Type Department Care Team (Late st Contact Info) Description 08/10/2021 Procedure Pass [address] [place] [address] Social History Tobacco Use Types Packs/Day Years [...] high school, GED, job training, learning the [place] language, technical skills, or developing parenting skills)? [...] 1:40 PM EST Office Visit [facility] [address] [place] [address] Efrain Melgar DO [address] [place] [address] documented as of this encounter Visit Diagnoses Not on filedocumented in this encounter Additional Health Concerns Infection Onset Date Last Indicated Resolved Time CoV-Risk 03/29/2022 03/29/2022 04/09/2022 1:22 AM EDT Assessment Noted Time PHQ-2 Depression Total Score: 2 08/11/19 22 9:20 AM EST documented as of this encounter Care Teams A P Mechanic Relationship Specialty Start Date End Date Giovanna Garcia, DERRICK BOAT RUNNER [email or web address] PCP - General Family Medicine 11/15/17 08/22/23 Unknown, Daxa, MD PCP - General 08/23/23 03/07/24 Hayley Ni MD [address] [place] [address] [place] [address] PCP - General Internal Medicine 03/08/24 Geronimo Beltran MD [address] [place] [address] [email or web address] Insurance Assigned Provider 09/19/20 06/17/23 Emely Barnes, RN [address] [place] [address] [email or web address] iCMP Fire Extinguisher Charger 07/27/21 08/10/21 documented as of this encounter Additional Source Comments The information contained in this document represents components of the legal health record. It is not the complete legal health record.[facility]
--- OUTSIDE RECORDS SUMMARY | 2025-02-14 10:49 | XMS_ITS | Encounter Summary ---
Author Organization [facility] Address [address] [facility] [address] [place] [address] Phone Care Team Providers Care Engineer Rf Deployment Name Role Phone Giovanna Garcia NP Primary Care Provider [phone] Geronimo Beltran MD Unavailable [phone] Emely Barnes RN Unavailable [phone] Unknown, Unknown Primary Care Provider Hayley Couch MD Primary Care Provider Encounter Details Date Type Department Care Team (Late st Contact Info) Description 09/30/2020 Procedure Pass [facility], Ct Scan - [address] [address] Social History Tobacco Use Types Packs/Day Years [...] 1:40 PM EST Office Visit [facility] [place] [address] [place] [address] [email or web address] documented as of this encounter [...] documented as of this encounter Care Teams Engineer Rf Deployment Relationship Specialty Start Date End Date Giovanna Garcia NP [email or web address] PCP - General Family Medicine 11/15/17 08/22/23 Unknown, Unknown, PCP - General 08/23/23 03/07/24 Hayley Ni MD [facility] [place] [address] PCP - General Internal Medicine 03/08/24 Geronimo Beltran MD [address] [place] [address] [email or web address] Insurance Assigned Provider 09/19/20 06/17/23 Emely Banres, RN [address] [place] [address] iCMP Miniature Set Constructor 07/27/21 08/10/21 documented as of this encounter Additional Source Comments The information contained in this document represents components of the legal health record. It is not the complete legal health record.[facility]
--- OUTSIDE RECORDS SUMMARY | 2025-02-14 10:50 | XMS_ITS | Encounter Summary ---
Author Organization [facility] Address [address] [place] [address] Phone Care Team Providers Care Production Broacher Name Role Phone Giovanna Garcia NP Primary Care Provider [phone] Geronimo Beltran MD Unavailable [phone] Unknown, Unknown Primary Care Provider Hayley Couch MD Primary Care Provider Encounter Details Date Type Department Care Team (Late st Contact Info) Description 11/10/2021 Procedure Pass [facility], Ct Scan - [address] [id number] Social History Tobacco Use Types Packs/Day Years [...] high school, GED, job training, learning the [place] language, technical skills, or developing parenting skills)? [...] on file Not on file Not on le documented as of this encounter Plan of Treatment Upcoming Encounters Date Type Department Care Team (Late st Contact Info) Description 07/10/2025 1:40 PM EST Office Visit [facility] [address] [place] [address] Efrain Melgar DO [address] [place] [address] documented as of this encounter Visit Diagnoses Not on filedocumented in this encounter Additional Health Concerns Infection Onset Date Last Indicated Resolved Time CoV-Risk 03/29/2022 03/29/2022 04/09/2022 1:22 AM EDT Assessment Noted Time PHQ-2 Depression Total Score: 2 08/11/19 9:20 AM EST documented as of this encounter Care Teams Production Broacher Relationship Specialty Start Date End Date Giovanna Garcia NP [email or web address] PCP - General Family Medicine 11/15/17 08/22/23 Unknown, Unknown, PCP - General 08/23/23 03/07/24 Hayley Ni MD [address] [place] [address] [place] [address] PCP - General Internal Medicine 03/08/24 Geronimo Beltran MD [address] [place] [address] [email or web address] Insurance Assigned Provider 09/19/20 06/17/23 documented as of this encounter Additional Source Comments The information contained in this document represents components of the legal health record. It is not the complete legal health record.[facility]
--- OUTSIDE RECORDS SUMMARY | 2025-02-14 10:50 | XMS_ITS | Encounter Summary ---
Author Organization [facility] Address [address] [facility] [facility] [address] [place] [address] Phone Care Team Providers Care Groundwater Consultant Name Role Phone Giovanna Garcia GRAPPLE OPERATOR Primary Care Provider [phone] Geronimo Beltran MD Unavailable [phone] Emely Barnes RN Unavailable [phone] Unknown, Unknown Primary Care Provider Hayley Couch MD Primary Care Provider Encounter Details Date Type Department Care Team (Late st Contact Info) Description 11/16/2020 Ancillary Orders Non-Invasive Cardiology [address] [place] [address] Patrice Quintero MD [address] [place] [address] [email or web address] Syncope and collapse Social History Tobacco Use Types Packs/Day Years [...] 1:40 PM EST Office Visit [facility] [address] [place] [address] RamónEfrain, DO 22 [place] [address] [email or web address] documented as of this encounter Results * (ABNORMAL) DEVICE CHECK: ILR IN-HOME INTERROGATION (11/16/2020 10:16 AM EDT) Narrative Patrice Quintero MD - 11/23/2020 1:10 PM EDT Remote interrogation of implantable loop recorder. Reason for implant: Syncope Outer Diameter Grinder: [employer] Symptoms: 0 Pauses: 0 Bradycardia: 0 Tachycardia: 1 brief SVT 10/26 AT/AF: 0 Battery status: OK Additional comments: Device functioning appropriately. Normal device function. Patient to follow-up for continued monitoring every 1 month. Report prepared by Lisa Nelson RN Patrice Quintero MD CV CARDIAC SERVICES ORDER LEILA Final Result documented in this encounter Visit Diagnoses Diagnosis Syncope and collapse Syncope and collapse documented in this encounter Additional Health Concerns [...] documented as of this encounter Care Teams Groundwater Consultant Relationship Specialty Start Date End Date Giovanna Garcia NP [email or web address] PCP - General Family Medicine 11/15/17 08/22/23 Unknown, Unknown, MD PCP - General 08/23/23 03/07/24 Hayley Ni MD [facility] [place] [address] PCP - General Internal Medicine 03/08/24 Geronimo Beltran MD [address] [place] [address] [email or web address] Insurance Assigned Provider 09/19/20 06/17/23 Emely Barnes, RN [address] [place] [address] [email or web address] iCMP Core Machine Tender 07/27/21 08/10/21 documented as of this encounter Additional Source Comments The information contained in this document represents components of the legal health record. It is not the complete legal health record.[facility]
--- OUTSIDE RECORDS SUMMARY | 2025-02-14 10:50 | XMS_ITS | Encounter Summary ---
Author Organization [facility] Address [address] [place] [address] Phone Care Team Providers Care Surgical Elastic Knitter Hand Frame Name Role Phone Giovanna Garcia GLOBAL VP CREATIVE + CONTENT MARKETING Primary Care Provider [phone] Geronimo Beltran MD Unavailable [phone] Emely Barnes RN Unavailable [phone] Unknown, Unknown Primary Care Provider Hayley Couch MD Primary Care Provider Encounter Details Date Type Department Care Team (Late st Contact Info) Description 02/16/2021 Ancillary Orders [facility] [address] [facility] 3rd Floor, [address] [place] [address] Patrice Quintero MD [address] [place] [phone] [email or web address] Social History Tobacco Use Types Packs/Day [...] PM EST Office Visit [facility] [address] [place] [address] [place] [address] [email or web address] documented as of this encounter Visit Diagnoses [...] documented as of this encounter Care Teams Surgical Elastic Knitter Hand Frame Relationship Specialty Start Date End Date Giovanna Garcia NP PCP - General Family Medicine 11/15/17 08/22/23 Unknown, Unknown, MD PCP - General 08/23/23 03/07/24 Hayley Ni MD [facility] [place] PCP - General Internal Medicine 03/08/24 Geronimo Beltran MD [address] [place] [address] [email or web address] Insurance Assigned Provider 09/19/20 06/17/23 Emely Barnes, RN [address] [place] [address] [email or web address] iCMP Controlled Atmospheric Furnace Brazer 07/27/21 08/10/21 documented as of this encounter Additional Source Comments The information contained in this document represents components of the legal health record. It is not the complete legal health record.[facility]
--- OUTSIDE RECORDS SUMMARY | 2025-02-14 10:50 | XMS_ITS | Encounter Summary ---
Author Organization [facility] Address [address] [facility] [address] [facility] [address] [place] [phone] Phone Care Team Providers Care Warp Bleaching Vat Tender Name Role Phone Giovanna Garcia NP Primary Care Provider [phone] Geronimo Beltran MD Unavailable Emely Barnes RN Unavailable [phone] Unknown, Unknown Primary Care Provider Hayley Couch MD Primary Care Provider Reason for Referral * MRI/CAT Scan - Closed Specialty Diagnoses / Procedures Referred By Braulio sheehan Referred To Contact Radiology Diagnoses Memory loss Hx of cancer of lung Procedures MRI Brain Efrain Elliott MD Phone: tel: fax: [email or web address] Referral ID Status Reason Start Date Expiration Date Visits Re quested Visits Authorized [id number] Closed 02/01/2021 02/01/2022 1 1 Encounter Details Date Type Department Care Team (Latest Contact Info) Description 02/01/2021 Transcribe Orders Virtual Department [address] [place] [phone] Efrain Elliott MD [address] [place] [address], [address] [place], [place] [phone] [email or web address] Memory loss (Primary Dx); Hx of cancer of lung Social History Tobacco Use Types Packs/Day Years [...] 1:40 PM EST Office Visit [facility] [address] [place] [phone] Efrain Melgar DO [address] [place] [phone] documented as of this encounter Results * MRI BRAIN WITH AND WITHOUT CONTRAST (03/22/2021 7:41 AM EDT) Anatomical Region Laterality Modality Head Magnetic Resonan ce 03/22/2021 7:48 AM EDT Impressions 03/22/2021 7:55 AM EDT Stable white matter disease. Narrative 03/22/2021 7:55 AM EDT COMPARISON: 04/08/2020. TECHNIQUE: Exam performed on a 1.5 Julita high-field MRI scanner. Axial T1, GRE, T2, FLAIR and diffusion-weighted with ADC map, sagittal T1, followed by post-gadolinium axial, sagittal and coronal T1 sequences were obtained. MRI BRAIN FINDINGS: Brain: No cerebellar tonsil herniation. Pituitary gland is not enlarged. No restricted diffusion to indicate acute or subacute ischemia. No intraparenchymal susceptibility artifact to indicate hemorrhage. Stable multiple subcentimeter T2 hyperintense subcortical and deep white matter lesions. No new lesions or enhancement. No mass, mass effect, midline shift or extra-axial fluid collections. Ventricles: No hydrocephalus. Vasculature: Normal vascular flow-voids. Orbits: Normal. Mastoids/Middle Ear/Paranasal Sinuses: Chronic mild nasal septal deviation and ethmoid sinus mucosal thickening. Soft Tissues: Unremarkable. Bone Marrow: Unremarkable. Procedure Note Krishan Montez MD - 03/22/2021 COMPARISON: 04/08/2020. TECHNIQUE: Exam performed on a 1.5 Julita high-field MRI scanner. AxialT1, GRE, T2, FLAIR and diffusion-weighted with ADC map, sagittal T1,followed by post- gadolinium axial, sagittal and coronal T1 sequences wereobtained. MRI BRAIN FINDINGS: Brain: No cerebellar tonsil herniation. Pituitary gland is not enlarged.No restricted diffusion to indicate acute or subacute ischemia. Nointraparenchymal susceptibility artifact to indicate hemorrhage. Stablemultiple subcentimeter T2 hyperintense subcortical and deep white matterlesions. No new lesions or enhancement. No mass, mass effect, midlineshift or extra-axial fluid collections. Ventricles: No hydrocephalus. Vasculature: Normal vascular flow-voids. Orbits: Normal. Mastoids/Middle Ear/Paranasal Sinuses: Chronic mild nasal septaldeviation and ethmoid sinus mucosal thickening. Soft Tissues: Unremarkable. Bone Marrow: Unremarkable. IMPRESSION: Stable white matter disease. Efrain Elliott MD IMG MR HEAD/NECK Final Resul t documented in this encounter Visit Diagnoses Diagnosis Memory loss- Primary Hx of cancer of lung Memory loss Hx of cancer of lung documented in this encounter Additional Health Concerns [...] documented as of this encounter Care Teams Warp Bleaching Vat Tender Relationship Specialty Start Date End Date Giovanna Garcia NP [email or web address] PCP - General Family Medicine 11/15/17 08/22/23 Unknown, Unknown, MD PCP - General 08/23/23 03/07/24 Hayley Ni MD [facility] [place] [address] PCP - General Internal Medicine 03/08/24 Geronimo Beltran MD [address] [place] [phone] [email or web address] Insurance Assigned Provider 09/19/20 06/17/23 Emely Barnes, RN [address] [place] [phone] [email or web address] 07/27/21 08/10/21 documented as of this encounter Additional Source Comments The information contained in this document represents components of the legal health record. It is not the complete legal health record.[facility]
--- OUTSIDE RECORDS SUMMARY | 2025-02-14 10:50 | XMS_ITS | Clinical Summary ---
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 Indications: [employer] - 2L with exertion and 2LPM every night Active ipratropium-albu teroL (DUONEB) 0.5-3 mg (2.5 mg base)/3 mL nebulizer solutionIndicati ons:Centrilobula r emphysema INHALE 3ML VIA NEBULIZER EVERY 6 HOURS FOR BRONCHI SPASM RESULTING FROM COPD 270 mL 1 04/07/20 22 Active lamoTRIgine (LAMICTAL) 100 MG IMMEDIATE release tablet Take 100 mg by mouth daily. 1 tab twice daily for seizures Active hydroCHLOROthiaz vianney (HYDRODIURIL) 12.5 MG tabletIndication s:Essential hypertension TAKE 1 TABLET BY MOUTH EVERY DAY 30 tablet 5 05/09/20 22 Active Additional Information Patient not taking.Reported on 02/06/2025 omeprazole (PRILOSEC) 40 MG capsuleIndicatio ns:Gastroesophag eal reflux disease without esophagitis TAKE 1 CAPSULE BY MOUTH TWICE A DAY 180 capsule 3 06/10/20 22 Active flecainide (TAMBOCOR) 50 MG tablet Take 100 mg by mouth 2 (two) times a day. 06/03/20 22 Active ipratropium (ATROVENT) 42 mcg (0.06 %) nasal spray 2 sprays by Nasal route 3 (three) times a day. 15 mL 11 06/29/19 23 Active traZODone (DESYREL) 50 MG tablet TAKE 1/2-1 TABLET BY MOUTH AT BEDTIME NEEDED 30 tablet 5 08/08/19 23 Active tiZANidine (ZANAFLEX) 4 MG tablet TAKE 1 TABLET BY MOUTH 2 TIMES A DAY NEEDED. 15 tablet 1 10/07/19 23 Active dilTIAZem (CARDIZEM CD) 240 MG 24 hr capsule Not started yet 10/22/19 23 Active XARELTO 20 mg Tab Take 20 mg by mouth daily. 01/03/20 23 Active albuterol 90 mcg/actuation inhalerIndicatio ns:Chronic obstructive pulmonary disease, unspecified COPD type TAKE 2 PUFFS INTO THE LUNGS EVERY 4 HOURS NEEDED 18 g 11 03/09/20 23 Active budesonide-glyco pyr-formoterol (BREZTRI AEROSPHERE) 160-9-4.8 mcg/actuation inhaler take 2 puffs by mouth twice a day 32.1 g 01/30/20 24 Active atorvastatin (LIPITOR) 40 MG tablet Take 40 mg by mouth once. 06/02/20 24 Active lubiprostone (AMITIZA) 8 MCG capsule Take 8 mcg by mouth 2 (two) times a day with meals. 09/20/19 25 Active fluticasone-umec lidin-vilanter (TRELEGY ELLIPTA) 100-62.5-25 mcg inhalation powder Inhale 1 puff into the lungs daily. Active ergocalciferol (DRISDOL) 50,000 unit capsuleIndicatio ns:Vitamin D deficiency Take 1 capsule (50,000 Units total) by mouth once a week. 12 capsule 09/24/19 25 Active doxycycline hyclate (DORYX) 100 MG tablet Take 1 tablet by mouth 2 (two) times a day. 10/12/19 25 Active cefuroxime (CEFTIN) 500 MG tablet Take 1 tablet by mouth 2 (two) times a day. 11/26/19 25 Active Active Problems Problem Noted Date Diagnosed Date Elevated cortisol level 09/23/2024 Assessment & Plan (01/09/2025 3:13 PM EDT): She was found to have elevated cortisol dexamethasone suppression test suppressed her cortisol appropriately so she is not cushingoid no further workup needs to be done. Assessment & Plan (09/23/2024 3:24 PM EDT): Will do dexamethasone suppression test. She will have to take dexamethasone at bedtime around 11 PM and then the following morning get a blood test fasting cortisol and dexamethasone level. This has to be done soon after waking up at a [facility] facility. Vitamin D deficiency 09/23/2024 Assessment & Plan (01/09/2025 3:13 PM EDT): She completed ergocalciferol 50,000 units weekly and is now on vitamin D 2000 units but unfortunately we do not have the vitamin D level and I told her to get it done and continue 2000 units daily. Assessment & Plan (09/23/2024 3:27 PM EDT): She is vitamin D deficient will prescribe ergocalciferol 50,000 units weekly. She is presently taking vitamin D 2000 units infection can continue taking this in addition to the ergocalciferol 50,000 units weekly which she will do for 12 weeks. Age-related osteoporosis wit hout current pathological fracture 06/14/2024 Assessment & Plan (01/09/2025 3:15 PM EDT): Other than vitamin D deficiency I did not find any secondary causes for osteoporosis. Repeat 24-hour urine calcium output was in the reference range. Furthermore she is now taking Caltrate. She completed 12 weeks of ergocalciferol and is now on maintenance therapy with 2000 units daily. Her FRAX score for osteoporosis fracture is 16% for major sporadic fracture and 2.6% for hip fracture which is not high. Although she still is at risk of fracture because she does have osteoporosis and she will benefit from antiresorptive medications. I review antiresorptive medications with her. She decided to use alendronic acid infusion. We reviewed that adverse effects include headaches and flulike symptoms and she can take Tylenol for this. I also gave a information to read about osteoporosis management which include exercise activity. Assessment & Plan (09/23/2024 3:33 PM EDT): And additions to the risk factors indicated in the HPI she was found to be vitamin D deficient also does not get adequate calcium intake calcium output in the urine is low. Furthermore she has elevated cortisol level and we will have to do dexamethasone suppression test to rule out Sary syndrome. She will benefit from antiresorptive medications because she is at high risk of fracture. However the antiresorptive medications will not work because she is not getting any calcium or enough calcium and she does not have enough vitamin D supplements so we need to correct this first. I will give her information on osteoporosis so that she can review the medications. But prescribing medications at this point for osteoporosis is pointless if we do not fix the vitamin D and the calcium intake. I asked her to buy Citracal [id number] she should take 2 tablets daily preferably with food. She will repeat 24-hour urine calcium study before the next visit but she should remember not to take the calcium pills during the 24-hour urine collection. Assessment & Plan (06/14/2024 12:21 PM EST): This patient was diagnosed with osteopenia on 05/28/2019 but in reality she was osteoporotic but unfortunately the right femoral neck T-score was not documented. It does not appear that she received any therapy for osteopenia. Most recently on 04/13/2023 and she was found to have osteoporosis of the left femoral neck. Her risk factors for osteoporosis include age, early menopause, remote tobacco use, use of prednisone, antiepileptic medications and proton pump inhibitors. She had T9 vertebral fracture possibly from grand mal seizure. She lost 1.5 inches in height. She presently does not take any calcium and vitamin D supplements at least on a consistent manner. She has not use antiresorptive medications. At this point I will do biochemical workup for evaluation of secondary causes of osteoporosis. I am not going to give the patient any supplements because first we need to evaluate for secondary causes but I we will give her information regarding osteoporosis management that she can read as indicated below. The antiresorptive medications are the bisphosphonates and rank ligand antagonists. The bisphosphonates come in oral form and IV form. The oral form is alendronate, this is a 70 mg tablet that is taken once a week with water on an empty stomach. The patient must not eat for 30 minutes and remain upright in a sitting or standing position. This medication may be associated with reflux. This medication can be used up to 5 years and at that point we reevaluate. If the bone density has not improved we can switch to another medication or continue the same medications for another 5 years. If there is improvement in bone mineral density then we can do a drug holiday. The IV form is called zoledronic acid/ Reclast. This is administered in the hospital as a yearly infusion. This medication can be used up to 3 years. Again this medication also can be repeated for another 3 years if there is insufficient bone mineral density or the medication could be switch for something else. If good bone improvement then we can consider a drug holiday. It is associated with flulike symptoms such as muscle aches, headaches, etc. The other antiresorptive medication is rank ligand antagonist such as Prolia/ denosumab. This medication is administered subcutaneously in the office every 6 months. With this medication you have to have adequate calcium intake otherwise hypocalcemia may develop. Furthermore the medication must not be missed there is a 2-week window in which the patient must have the injection. If the patient misses the injection then there will be rapid decrease in bone mineral density. Furthermore if the patient wants to stop the medication that we will have to take alendronate for period of 1 year. If the patient does not take any medications at all after stopping Prolia then they will return to their original bone mineral density within 12 months. All of these medications are associated with atypical femur fracture and jaw necrosis after prolonged use. Prolonged use is considered to be approximately 5 years. The risk of atypical femur fracture approximately 0.8% and for jaw necrosis is approximately 0.1%. This can translate to up to 5 people out of 10,000. There are other medications such as anabolic hormones. These include Forteo and Tymlos which are basically the same medication but different brands. These medications are injected by the patient on a daily basis at nighttime right before going to bed. This medication is good for period of 2 years. It is administered in the evening because it could be associated with dizziness. The last medication is Evenity which is administered in the office on a monthly basis for period of 1 year. This medication cannot be used if the patient had a myocardial infarction within the last 6 months. The anabolic hormones are very expensive and normally for a patient who has not use any of these medications they usually get one of the antiresorptive medications such as alendronate, zoledronic acid or Prolia. Adjustment disorder with anxiety 06/02/2022 History of lung cancer 02/08/2022 History of loop recorder 07/29/2021 History of COVID-19 07/03/2021 Status post lobectomy of lung 10/29/2020 Lung cancer 06/12/2020 Overview (10/26/2022): large cell stage 1 Cervicalgia 05/15/2020 Assessment & Plan (05/15/2020 5:32 PM EST): It is hard to say whether this is strictly neck or right-sided impingement of the C4. Spurling maneuver was negative. In any case it be reasonable for her to go back to chiropractic with active x-rays and go to physical therapy which was helpful about 10 years ago. We have no sentinel event here though she thinks maybe her grand mall seizure back in February is contributing to the symptoms. Nocturnal hypoxemia 05/01/2020 Assessment & Plan (05/01/2020 12:33 PM EST): Continue to use supplemental oxygen as prescribed. Follow-up with Dr. Russell re results of your sleep study. Centrilobular emphysema 05/01/2020 Assessment & Plan (05/01/2020 12:34 PM EST): Will check A1AT phenotype. Former smoker 05/01/2020 Assessment & Plan (05/01/2020 12:35 PM EST): Consider lung cancer screening chest CT, which we could order at her next visit here when, hopefully, they will again be available at [facility]. Syncope 03/10/2020 Assessment & Plan (07/06/2020 1:37 PM EST): No recurrence of any syncope, near syncope, or seizure symptoms recently. We will continue to check her loop recorder routinely. Assessment & Plan (03/11/2020 5:49 PM EDT): Question brought on by atrial fibrillation, versus seizure --Continue director orange. Implantable loop recorder being planned for Monday --Await EEG Multifocal atrial tachycardia 02/19/2020 Assessment & Plan (07/06/2020 1:36 PM EST): She has a history of multifocal atrial tachycardia in the setting of severe COPD. She did have one brief episode of MAT and she was symptomatic. Dr. Somers has been made aware of this episode. We will continue to monitor. Chronic hypoxemic respiratory failure 12/25/2019 Assessment & Plan (12/25/2019 9:38 AM EDT): Continue to use supplemental oxygen as prescribed. 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 She is on anticoagulation but is unfortunately not taking it properly. She is only taking her Eliquis once daily. I have counseled her on the importance of taking her anticoagulant and let her know that she is not protected from stroke at this dosing. She does plan to resume normal dosing. She does have an ILR and there has not been a recurrence of atrial fibrillation. She will follow up with Dr. Quintero for continued management of her atrial fibrillation. (Of note, in reviewing her medical record, Diana has noted that the patient had an episode of atrial fibrillation during one of her hospitalizations in 2016). Assessment & Plan (12/19/2019 9:59 AM EDT): Several episodes of feeling of gandhi in my body concurrently with episodes of palpitations and hypoxia with O2 sat reading down to 83%. She does have a history of multifocal atrial tachycardia and remote history of paroxysmal atrial fibrillation during hospitalization in 2016. She is in the process of getting sleep medicine study to rule out KRISTEN. I strongly recommend 30 Day Loop monitor to rule out recurrence of atrial fibrillation. If she has presence of atrial fibrillation she should be anticoagulated as she has elevated risk of stroke her [id number] score of 3 with 3.2% adjusted stroke rate per year. Currently on verapamil 240 mg daily. Assessment & Plan (07/22/2019 4:14 PM EST): Patient has missed a couple appointments cardiology. It sounds like this might be MAT. Thus far they have been able to catch A. fib for her. Her insurance company will not pay for 30-day event monitor. Anticoagulation was not recommended. Needs to follow-up with Dr. Somers Seizure disorder 07/22/2019 Assessment & Plan (07/06/2020 1:37 PM EST): She will continue to follow with Dr. Elliott regarding her seizure history. She reports a significant improvement in her neurologic symptoms since starting the Lamictal. Assessment & Plan (03/11/2020 5:49 PM EDT): She carries a history of seizures. This could have precipitated her unresponsiveness. CT imaging unremarkable. No recurrence of symptoms --Neurology recommendations from the ED were reviewed. Awaiting EEG Assessment & Plan (07/22/2019 4:15 PM EST): Patient is following up with Dr. Seo from neurology. So far they are not certain that which he is experiencing is in fact seizure activity. Awaiting an outpatient EEG. Very severe chronic obstructive pulmonary diseas e 07/09/2019 Assessment & Plan (05/01/2020 12:34 PM EST): PFT are suggestive of asthma-COPD. She is adequately controlled on triple therapy; we will continue Spiriva Handihaler and high-dose Symbicort. We will repeat PFT next April at an annual interval. She is up to date with the influenza vaccine this season. Assessment & Plan (03/11/2020 5:50 PM EDT): She has advanced COPD with O2 dependence --Continue prednisone, doxycycline, Combivent and Spiriva as scheduled. COVID screen negative Assessment & Plan (12/25/2019 9:38 AM EDT): Continue triple therapy with Spiriva HandiHaler and high-dose Symbicort given recurrent exacerbations. She has been doing well on this. Technique reviewed over the phone today. We will repeat PFT in April at an annual interval. We will reconvene thereafter. Assessment & Plan (07/22/2019 4:13 PM EST): As per above. Patient has been paying out of pocket for DuoNeb. Needed Rx on discharge with an ICD 10 code to help get that paid for, J44.1 Should work. Assessment & Plan (07/09/2019 2:10 PM EST): Postnasal drip possibly furthering the patient's COPD exacerbation. Re-boost prednisone with 60 mg x 2 days 50 mg x 2 days and so forth. No need to go to ER but if fever and then short of breath please call office immediately. If after hours go to ER. Anxiety 08/03/2017 Assessment & Plan (07/23/2019 4:08 PM EST): May be driving some of her concern about going home Assessment & Plan (04/27/2019 12:28 PM EST): Continue Lorazepam 0.5mg three times daily PRN for anxiety. No apparent respiratory effect Assessment & Plan (09/05/2017 2:53 PM EDT): Stable Plan: -Continue Celexa, Effexor, and prn Ativan Essential hypertension 08/03/2017 Assessment & Plan (07/06/2020 1:36 PM EST): Blood pressure goal is less than 130/90. Blood pressure today in the office is normal. Continue verapamil. Assessment & Plan (12/19/2019 5:19 PM EDT): BP goal of less then 130/90. Elevated BP reading today, currently Verapamil 240 mg for MAT. We discussed DASH and hidden salt sources. I asked her to implement those and call us if BP still above goal. Assessment & Plan (07/21/2019 6:30 PM EST): Continue Verapamil Assessment & Plan (04/26/2019 8:35 PM EST): Continue Verapamil 240mg daily Assessment & Plan (09/05/2017 2:20 PM EDT): BP controlled here Plan: -Continue to monitor -Continue Verapamil Gastroesophageal reflux disease without esophagi tis 08/03/2017 Assessment & Plan (05/01/2020 12:34 PM EST): Continue PPI. Adequate control of reflux symptoms is important in the setting of underlying obstructive lung disease. Assessment & Plan (12/25/2019 9:38 AM EDT): Continue PPI. Adequate control of reflux symptoms is important in the setting of underlying obstructive lung disease. Assessment & Plan (07/21/2019 6:31 PM EST): Pt is on prilosec at home but non-formulary. Will place on protonix during hospital stay Assessment & Plan (04/26/2019 8:56 PM EST): Continue PPI Assessment & Plan (11/02/2018 12:35 PM EDT): Continue PPI. Adequate control of reflux symptoms as important in the setting of underlying obstructive lung disease. Assessment & Plan (10/12/2017 10:33 AM EDT): Adequate control of reflux symptoms as important in the setting of underlying obstructive lung disease. Given persistent symptoms, advised that she follow up with her PCP and consider referral to GI. Assessment & Plan (09/08/2017 8:29 AM EDT): Adequate control of reflux symptoms as important in the setting of underlying obstructive lung disease. Assessment & Plan (09/05/2017 2:54 PM EDT): Continue Nexium Resolved Problems Problem Noted Date Diagnosed Date Resolved Date Shortness of breath 10/08/2019 12/25/19 20 Assessment & Plan (10/08/2019 5:29 PM EDT): Could be covid infection vs COPD exacerbation. Given onset of symptoms with diarrhea I have a moderately high pretest suspicion for COVID. I did not start prednisone for this reason. If pt screens negative then would put her on a prednisone burst for COPD exacerbation. She understands and agrees. Acute on chronic respiratory failure with hypoxia 07/21/2019 07/24/2019 Assessment & Plan (07/23/2019 4:07 PM EST): Improving significantly. Does not quite feel back to baseline. 1 more day to assure continued improvement Abdominal distention 04/07/2018 018 Assessment & Plan (04/07/2018 7:00 PM EDT): This could add to her difficulty breathing if she has ascites. Plan CT abdomen pelvis rule out hepatosplenomegaly, cirrhosis with ascites, ovarian cancer, or other cause of abdominal fluid. COPD with acute exacerbation 04/05/2018 11/02/2018 Assessment & Plan (04/07/2018 7:00 PM EDT): Agree that the COPD exacerbation is mainly bronchitis. Today with added stridor will obtain a CT of the neck to rule out tracheomalacia or stricture. Abnormal ECG 04/05/2018 04/08/2018 Assessment & Plan (04/06/2018 1:24 PM EDT): Tropes are negative third 1 has been requested. A brief episode of right-sided chest pain this morning that resolved spontaneously. An EKG was done at the time and it is unchanged. She has some lateral ST depression and T inversions. The only other EKG I have is back from 2012 and they look essentially similar. She has seen Dr. Somers in the past for burst of A. fib. He did not feel that that was the arrhythmia. She had outpatient echocardiograms and a JOSEPHINE in the past but all going back many years. No history of stress test. Her mobility has been decreasing overall she is been aging. She thinks it is worse over about the last year. Certainly noted acute dyspnea on exertion of late. Her COPD keeps her quite limited and she does not exercise. I do not think we need to do any further workup at this time unless there is more objective evidence of. This is probably related to the lungs. I will repeat an echocardiogram as it is been many years and with the dyspnea on exertion it is reasonable to check. Bronchospasm 09/05/2017 09/06/2017 Assessment & Plan (09/05/2017 2:53 PM EDT): Post-Op, now seems to have improved s/p 2 updrafts Plan: -Monitor overnight -Continue DuoNebs QID with prn Albuterol Polyp of gallbladder 08/25/2017 018 Assessment & Plan (09/05/2017 2:20 PM EDT): POD #0 s/p lap dennis today with Dr. Interiano Plan: -Continue per surgery Assessment & Plan (08/25/2017 1:12 PM EDT): We discussed that the recommendation is for laparoscopic cholecystectomy with gallbladder polyps greater than 1 cm. We discussed that it is likely cholesterol polyp, but could be a malignant polyp. We discussed if malignancy were to be discovered, based on the stage, she may require further surgery. I scott a picture of right upper quadrant anatomy and explained the pathophysiology of gallbladder disease and gallstone formation. We reviewed the steps of laparoscopic cholecystectomy and discussed the expected postoperative course with need for activity restriction. We discussed risks of bleeding, infection, injury to adjacent structures including the common bile duct, failure to relieve pain, need for further endoscopic or surgical intervention, missed stone, bile leak, and chronic diarrhea. I will reach out to Dr. Anderson regarding her COPD status and any necessary preoperative workup. The patient would like to look at her schedule at work and call us to with a date. Diffusion capacity of lung (dl), decreased 08/03/2017 11/02/2018 Tobacco abuse 07/05/2012 08/21/2018 Encounters Date Type Department Care Team Description 02/06/2025 1:30 PM EDT Infusion [facility] [address] [place] [address] Efrain Melgar DO Age-related osteoporosis without current pathological fracture (Primary Dx) 01/10/2025 8:18 AM EDT - 01/10/2025 11:59 PM EDT Hospital Encounter [facility] Laboratory [address] [place] [address] Efrain Melgar DO Discharge Disposition: Home or Self Care 01/09/2025 3:00 PM EDT Office Visit [facility] [address] [place] [address] Efrain Melgar DO Age-related osteoporosis without current pathological fracture (Primary Dx); Elevated cortisol level; Vitamin D deficiency 12/23/2024 8:54 AM EDT - 12/23/2024 11:59 PM EDT Hospital Encounter [facility] Laboratory [address] [place] [address] Efrain Melgar DO Discharge Disposition: Home or Self Care 12/20/2024 Refill [facility] [address] [place] [address] Efrain Melgar DO Medication Refill from Last 3 Months Immunizations Immunization Administration Dates Next Due INFLUENZA, SPLIT VIRUS, TRIVALENT PF 03/04/2016, 06/03/2015 INFLUENZA, SPLIT VIRUS, TRIV ALENT W/ PRESERVATIVE IM 03/12/2021,03/12/2019,01/31/2017,03/27,02/16/2011 Influenza High-Dose Quadriva lent Preservative Free IM 04/28/2022,05/31/2021,03/26/2020,03/12(Deferred: Not Available From [employer]) Influenza Quadrivalent Prese rvative Free IM 03/20/2019,03/20/2018 Influenza trivalent preserva tive free intradermal 02/06/2013 Influenza, Unspecified Formulation 02/12/2010 Pneumococcal conjugate PCV13 03/20/2019 Pneumococcal polysaccharide PPSV23 03/26/2020, Tdap 08/22/2019 Family History Medical History Relation Comments Coronary artery disease Father Heart failure Father Esophageal cancer Maternal Grandmother Lung cancer Maternal Uncle Lung cancer Mother small cell Stomach cancer Paternal Grandmother Stomach cancer Paternal Uncle Relation Status Comments Father Maternal Grandmother Maternal Uncle Mother Paternal Grandmother Paternal Uncle Social History Tobacco Use Types Packs/Day Years Used Date Smoking Tobacco: Former Cigarettes 1 45 0 09/06/1970 - 09/07/2015 Smokeless Tobacco: Never Tobacco Cessation:Counseling Given: Not Answered Alcohol Use Standard Drinks/Week Comments Yes 2 [...] Not on file Not on fi le Last Filed Vital Signs Vital Sign Reading Time Taken Comments Blood Pressure 132/77 02/06/2025 1:10 PM EDT Pulse 66 02/06/2025 1:10 PM EDT Temperature 36.4 C (97.6 F) 02/06/2025 1:10 PM EDT Respiratory Rate 18 02/06/2025 1:10 PM EDT Oxygen Saturation 95% 02/06/2025 1:10 PM EDT Inhaled Oxygen Concentration 29% 07/24/2019 7 :39 AM EST Weight 63 kg (139 lb) 01/09/2025 2:54 PM EDT Height 165.1 cm (5' 5 ) 01/09/2025 2:54 PM EDT Body Mass Index 23.13 01/09/2025 2:54 PM EDT Plan of Treatment Upcoming Encounters Date Type Department Care Team (Late st Contact Info) Description 07/10/2025 1:40 PM EST Office Visit [facility] [address] [place] [phone] Efrain Melgar DO [address] [place] [phone] [email or web address] Health Maintenance Due Date Last Done Comments ZOSTER VACCINES (1 of 2) 1973 FIT TEST 1999 FOBT 1999 SIGMOIDOSCOPY 1999 VIRTUAL COLONOSCOPY 1999 RSV VACCINE (1 - Risk 60-74 years 1-dose series) 2014 MAMMOGRAM 05/28/2021 05/28/2019, 06/06/2016, 09/29/2016, Additional history exists DEPRESSION SCREENING 08/10/2022 08/10/2021 COLONOSCOPY 12/10/2024 12/10/2014 PAP SMEAR 12/23/2024 12/24/2019, 12/10, 05/18/2017, Additional history exists INFLUENZA VACCINE (#1) 2025 , 04/28/2022, 05/31/2021, Additional history exists COVID-19 VACCINE ( season) 2025 06/15/2021 COLOGUARD 02/16/2025 02/16/2022 COLORECTAL CANCER SCREENING 02/16/2025 POTASSIUM LEVEL 06/17/2025 06/17/2024, 04/12, 03/29/2022, Additional history exists BLOOD PRESSURE 08/09/2025 02/06/2025 CREATININE LEVEL 12/23/2025 12/23/2024, 11/2024, 06/17/2024, Additional history exists FOLLOW UP BONE DENSITY TESTING 01/09/2027 01/09/2025, 05/28/2019, 02/07/2019, Additional history exists LIPID PANEL 03/20/2028 03/20/2023, 100 02/2023, 06/16/2020, Additional history exists Adult Td,Tdap Booster 08/21/2029 08/22/2019 HEPATITIS C SCREENING Completed 12/11/2018, 012 PNEUMOCOCCAL VACCINES (50+ years) Completed 10/26/2023, 03/26/2020, 03/20/2019, Additional history exists OSTEOPOROSIS SCREENING INITIAL (ONE-TIME) Completed 01/09/2025, 05/28/2019, 02/07/2019, Additional history exists HEPATITIS A VACCINES Aged Out No long er eligible based on patient's age to complete this topic HIB VACCINES Aged Out No longer eligi ble based on patient's age to complete this topic MENINGOCOCCAL VACCINES (ACWY) Aged Out No longer eligible based on patient's age to complete this topic MENINGOCOCCAL VACCINES (B) Aged Out N o longer eligible based on patient's age to complete this topic Medical Devices Implanted Type Area Technician [employer] Device Identifier Shelf Expiration Date Model / Serial / Lot Monitor Cardiac Implantable And Patient Home Monitor [employer] - [id number] Implanted:Qty: 1 on 03/20/2020 by Radu Somers MD at [facility] Implantable Monitor [employer] 11/23/2020 [employer] / [id number] / Procedures Procedure Name Priority Date/Time Associated Diagnosis Comments 25-OH VITAMIN D Routine 01/10/2025 8:19 AM EDT Vitamin D deficiency BD DXA MONITORING Routine 01/09/2025 3:0 6 PM EDT Age-related osteoporosis without current pathological fracture TIMED URINE DATA Routine 12/23/2024 8:30 AM EDT CALCIUM, 24 HOUR URINE Routine 12/23/2024 8:30 AM EDT Age-related osteoporosis without current pathological fracture CREATININE, 24 HR URINE Routine 12/23/2024 8:30 AM EDT Age-related osteoporosis without current pathological fracture COMPREHENSIVE METABOLIC PANEL Routine 06/17/2024 8:43 AM EST Age-related osteoporosis without current pathological fracture LIPID PANEL Routine 06/16/2020 10:50 AM EST PAF (paroxysmal atrial fibrillation) Mixed hyperlipidemia PAP TEST Routine 12/24/2019 12:00 AM EDT BI MAMMOGRAM SCREENING WITH TOMOSYNTHESIS WITH CAD (BILATERAL) Routine 05/28/2019 10:16 AM EST Routine general medical examination at a health care facility HEPATITIS C ANTIBODY, QUALITATIVE Routine 12/11/2018 3:41 PM EDT RUQ pain COLONOSCOPY FOR RESULT ENTRY ONLY Routine 12/10/2014 from Last 3 Months or Most Recently Relevant to Health Maintenance Results * 25-OH vitamin D (01/10/2025 8:19 AM EDT) 25 OH VIT D (TOTAL) 44 30 - 60 ng/mL [facility] Blood 01/10/2025 8:19 AM EDT 01/10/2025 8:20 AM EDT us Efrain Melgar DO LAB BLOOD ORDERABLES Final Resul t Performing Organization Address City/[facility]/ZIP Co de Phone Number [address] [address] * Timed urine data (12/23/2024 8:30 AM EDT) COLLECTION DATA 24 [facility] TOTAL VOLUME 900 mL [facility] 12/23/2024 8:30 AM EDT 12/23/2024 8:59 AM EDT us Efrain Melgar DO URINE ORDERABLES Final Result Performing Organization Address [facility] Co de Phone Number [address] [address] * Calcium, 24 hour urine (12/23/2024 8:30 AM EDT) URINE CALCIUM 11.8 mg/dL [facility] CALCIUM OUTPUT 106 100 - 300 mg/total output [facility] Urine (Urine) 12/23/2024 8:3 0 AM EDT 12/23/2024 8:59 AM EDT us Efrain Melgar DO URINE ORDERABLES Final Result Performing Organization Address [facility]/ZIP Co de Phone Number [address] [address] * Creatinine, 24 hr urine (12/23/2024 8:30 AM EDT) URINE CREATININE 80 mg/dL [facility] CREATININE OUTPUT 720 600 - 1,800 mg/total output [facility] Urine (Urine) 12/23/2024 8:3 0 AM EDT 12/23/2024 8:59 AM EDT us Efrain Melgar DO URINE ORDERABLES Final Result Performing Organization Address City/[facility]/ZIP Co de Phone Number [address] [address] * (ABNORMAL) Comprehensive metabolic panel (06/17/2024 8:43 AM EST) SODIUM 139 133 - 146 mmol/L [facility] POTASSIUM 3.4 3.3 - 5.1 mmol/L [facility] CHLORIDE 94(L) 96 - 108 mmol/L [facility] CO2 32 21 - 35 mmol/L [facility] BUN 19 6 - 19 mg/dL [facility] CREATININE 0.70 0.5 - 1.5 mg/dL [facility] GLUCOSE 112(H) 70 - 99 mg/dL [facility] ALBUMIN 4.6 3.9 - 4.8 g/dL [facility] TOTAL PROTEIN 8.0 6.5 - 8.0 g/dL [facility] CALCIUM 10.0 8.4 - 10.3 mg/dL [facility] ALKALINE PHOSPHATASE 132(H) 39 - 117 U/L [facility] TOTAL BILIRUBIN 0.3 0.0 - 1.2 mg/dL [facility] AST 19 0 - 37 U/L [facility] ALT 12 0 - 40 U/L [facility] GLOBULIN 3.4 1 - 4.8 g/dL [facility] EGFR 93 >59 mL/min/1.7 3m2 [facility] Comment:Estimated glomerular filtration rate calculated using the CKD-EPI refit equation. ANION GAP 16 10 - 20 mmol/L [facility] Blood 06/17/2024 8:43 AM EST 06/17/2024 8:50 AM EST Efrain Melgar DO LAB BLOOD ORDERABLES Final Resul t [facility] [address] [place] [address] * (ABNORMAL) Lipid panel (06/16/2020 10:50 AM EST) HDL 62 mg/dL [facility] Comment: Interpretation <40 mg/dL: Low HDL cholesterol (major risk factor for CHD) Greater than or equal to 60 mg/dL: High HDL cholesterol ( negative risk factor for CHD) HDL - cholesterol is affected by a number of factors, e.g. smoking, excerise, hormones, sex and age. CHOLESTEROL 250(H) 0 - 240 mg/dL [facility] TRIGLYCERIDES 145 30 - 160 mg/dL [facility] LDL 159(H) 50 - 129 mg/dL [facility] Comment: LDL levels in terms of risk for coronary heart disease: <100 mg/dL: Optimal 100-129 mg/dL: Near or above optimal 130-159 mg/dL: Borderline high 160-189 mg/dL: High >190 mg/dL: Very High CARDIAC RISK RATIO 4.0 3.3 - 4.4 [facility] Blood 06/16/2020 10:5 0 AM EST 06/16/2020 10:58 AM EST us Giovanna Garcia NP LAB BLOOD ORDERABLES Final Resu lt [address] [address] * Pap Smear (12/24/2019 12:00 AM EDT) 12/24/2019 12/26/2019 3:0 7 PM EDT Narrative SEE NARRATIVE - 01/03/2020 2:55 PM EDT [address] [address] Photogrammetrist: Erna Brown MD GRADUATE RESEARCH ASSISTANT Cytology Report FINAL DIAGNOSIS A. PAP SMEAR (SUREPATH) CE: SPECIMEN ADEQUACY: Satisfactory for evaluation; transformation zone present. INTERPRETATION: NEGATIVE FOR INTRAEPITHELIAL LESION OR MALIGNANCY. Electronically Signed Out By: Cornelius Saldana MD By his/her signature above, the pathologist listed as making the Final Diagnosis certifies that he/she has personally reviewed this case and confirmed or corrected the diagnosis. The Pap test is a screening test primarily for squamous cancers and precursors and has associated false-negative and false-positive results. New technologies such as liquid-based preparations may decrease but will not eliminate all false-negative results. Regular sampling and follow-up of unexplained clinical signs and symptoms are recommended to minimize false negative results. PROCEDURES/ADDENDA HPV Testing (Requested) Ordered Date: 12/26/2019 A. PAP SMEAR (SUREPATH) CE: Human Papilloma Virus Test Negative for high-risk human papillomavirus types 16, 18, 45 and the Other high risk probe set (Includes 31, 33, 35, 39, 51, 52, 56, 58, 59, 66, 68) by [employer] On[employer] HR-HPV analysis. Clinical correlation is advised. This HPV test was performed at [facility], [address] [place] [address]. This test has been FDA approved for SurePath cervical cytology specimens. The accuracy and precision of this test for all other specimen sources has been verified in the Cytopathology Laboratory of the [facility] and has not been cleared or approved by the U.S. Food and Drug Administration. Clinical correlation is advised. CLINICAL HISTORY Date of Last Menstrual Period: Not Provided Menstrual History: Post Menopausal Other Clinical Conditions: Screening Pap SPECIMEN SOURCE A: PAP SMEAR (SUREPATH) CE Patient Name: ZAYNAB MCGUIRE : 1955 (Age: 64) Sex: F Institution: [facility] Location: [facility] Date of Collection: 12/24/2019 Date of Reported: 01/03/2020 14:55 Results to: Connie Woodruff MD Connie Woodruff MD CYTOLOGY ORDERABLES Final Result SEE NARRATIVE * BI MAMMOGRAM SCREENING WITH TOMOSYNTHESIS WITH CAD (BILATERAL) (05/28/2019 10:16 AM EST) Anatomical Region Laterality Modality Breast Left, Breast Right, Breast Bilateral Bila teral Mammography 05/28/2019 11:1 8 AM EST Impressions 05/28/2019 11:21 AM EST No mammographic evidence of malignancy. Routine annual screening mammography recommended. BI-RADS CATEGORY: 1 - Negative. DENSITY: There are scattered fibroglandular densities. POS - CDHMAMA Narrative 05/28/2019 11:21 AM EST Standard digital full-field 2-D C view and two-plane tomographic imaging was performed and compared with the prior outside study of 11/30/2016 and outside MLO but not craniocaudal views of an outside study dated 08/14/2013, with utilization of computer-aided detection. The breasts are composed of scattered fibroglandular densities. The stromal markings are essentially unchanged in overall appearance and distribution. No dominant spiculated mass, suspicious clustered microcalcifications, or focal zone of pathologic skin thickening or retraction are noted to have arisen in the interim. Procedure Note Max Burroughs MD - 05/28/2019 Standard digital full-field 2-D C view and two-plane tomographic imagingwas performed and compared with the prior outside study of 11/30/2016 andoutside MLO but not craniocaudal views of an outside study dated08/14/2013, with utilization of computer-aided detection. The breasts are composed of scattered fibroglandular densities. Thestromal markings are essentially unchanged in overall appearance anddistribution. No dominant spiculated mass, suspicious clusteredmicrocalcifications, or focal zone of pathologic skin thickening orretraction are noted to have arisen in the interim. IMPRESSION: No mammographic evidence of malignancy. Routine annual screeningmammography recommended. BI-RADS CATEGORY: 1 - Negative. DENSITY: There are scattered fibroglandular densities. POS - CDHMAMA Giovanna Garcia NP IMG MG EXAMS Final Result * BD DXA AXIAL (SPINE) WITH HIP (05/28/2019 9:51 AM EST) Anatomical Region Laterality Modality Bone Density Bone Density 05/28/2019 10:0 4 AM EST Impressions 05/28/2019 10:05 AM EST Findings consistent with osteopenia. POS -[id number] Narrative 05/28/2019 10:05 AM EST This is a 64-year-old postmenopausal female presenting for baseline screening exam. Evaluation of the lumbar spine and both hips is obtained and appears technically adequate. The lumbar spine from L1 through L4 discloses a total bone mineral density of 0.925 g/cm2 with a T-score of -1.1. Z score 0.7. This is in the osteopenia range. The right hip has a total bone mineral density of 0.762 g/cm2 with a T-score of -1.5. Z score -0.2. This is in the osteopenia range. The left hip has a total bone mineral density of 0.774 g/cm2 for a T-score of - 1.4. Z score -0.1. This is in the osteopenia range. Lateral instant vertebral imaging is not performed. Procedure Note Fernando Perez MD - 05/28/2019 This is a 64-year-old postmenopausal female presenting for baselinescreening exam. Evaluation of the lumbar spine and both hips is obtained and appearstechnically adequate. The lumbar spine from L1 through L4 discloses a total bone mineral densityof 0.925 g/cm2 with a T-score of -1.1. Z score 0.7. This is in theosteopenia range. The right hip has a total bone mineral density of 0.762 g/cm2 with aT-score of - 1.5. Z score -0.2. This is in the osteopenia range. The left hip has a total bone mineral density of 0.774 g/cm2 for a T-scoreof - 1.4. Z score -0.1. This is in the osteopenia range. Lateral instant vertebral imaging is not performed. IMPRESSION: Findings consistent with osteopenia. POS -[id number] Giovanna Garcia NP IMG BD BONE DENSITY DEXA Final Result * Hepatitis C antibody, qualitative (12/11/2018 3:41 PM EDT) HCV Negative Negative [facility] Comment: This is a screening test and should be confirmed with molecular testing Blood 12/11/2018 3:41 PM EDT 12/11/2018 3:48 PM EDT Giovanna Garcia NP LAB BLOOD ORDERABLES Final Resu lt [address] [address] * COLONOSCOPY FOR RESULT ENTRY ONLY (12/10/2014) Colonoscopy . us Historical Provider MD HEALTH MAINTENANCE Final Result from Last 3 Months or Most Recently Relevant to Health Maintenance Insurance MEDICARE PART A & B Member Subscriber Plan / Payer (Ef fective 2019-Present) Name:Zaynab Mcguire Member ID:[id number] Relation to Subscriber:Self Name:Zaynab Mcguire Subscriber ID:[id number] Payer ID:[id number] Group ID:Not on file Type:Medicare Address: [facility]script [facility] [address] [place] [address] [employer] MEDEX SUPPLEMENT MEDICARE PART A & B [employer] MEDEX SUPPLEMENT [employer] MEDEX SUPPLEMENT MEDICARE PART A & B [employer] MEDEX SUPPLEMENT MEDICARE PART A & B [employer] MEDEX SUPPLEMENT MEDICARE PART A & B [employer] MEDEX SUPPLEMENT MEDICARE PART A & B [employer] MEDEX SUPPLEMENT MEDICARE PART A & B [facility] MEDEX SUPPLEMENT MEDICARE PART A & B [employer] MEDEX SUPPLEMENT Advance Directives For more information, please contact: [phone] (9AM - 5PM [facility], Monday-Monday) Documents on File Type Date Recorded Patient 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 Marker Expl anation Healthcare Proxy 04/30/2019 9:07 AM * Full Code (Latest Code Status on File) Date Activated Date Inactivated Comments 03/10/2020 10:08 PM 03/20/2020 7:26 AM Question Answer Comments Code Status Confirmed With: Patient * Full Code (Confirmed) Date Activated Date Inactivated Comments 07/21/2019 5:10 PM 07/24/2019 4:47 PM Question Answer Comments Code Status Confirmed With: Patient * Full Code (Confirmed) Date Activated Date Inactivated Comments 04/26/2019 8:04 PM 04/29/2019 4:42 PM Question Answer Comments Code Status Confirmed With: Patient * Full Code (Confirmed) Date Activated Date Inactivated Comments 04/06/2018 12:49 AM 04/08/2018 6:56 PM Question Answer Comments Code Status Confirmed With: Patient Code Status Communicated To: Inpatient Attending * Full Code (Confirmed) Date Activated Date Inactivated Comments 09/05/2017 2:51 PM 09/06/2017 4:43 PM Question Answer Comments Code Discussion Comments: Patient Care Teams Ink Printer Relationship Specialty Start Date End Date Hayley Ni MD [address] [place] [address] PCP - General Internal Medicine 03/08/24 Additional Source Comments The information contained in this document represents components of the legal health record. It is not the complete legal health record.[facility]
--- OUTSIDE RECORDS SUMMARY | 2025-02-14 10:50 | XMS_ITS | Encounter Summary ---
Author Organization [facility] Address [address] [facility] [address] [place] [address] Phone Care Team Providers Care Paddock Judge Name Role Phone Giovanna Garcia AGENCY SALES DEVELOPMENT ASSOCIATE Primary Care Provider [phone] Geronimo Beltran MD Unavailable [phone] Emely Barnes RN Unavailable [phone] Unknown, Unknown Primary Care Provider Hayley Couch MD Primary Care Provider Encounter Details Date Type Department Care Team (Late st Contact Info) Description 02/16/2021 Ancillary Orders Non-Invasive Cardiology [address] [place] [address] Patrice Quintero MD [address] [place] [address] [email or web address] Syncope and collapse Social History Tobacco Use [...] 1:40 PM EST Office Visit [facility] [address] [place] [address] RamónEfrain, [address] [place] [address] [email or web address] documented as of this encounter Results * DEVICE CHECK: ILR IN-HOME INTERROGATION (02/16/2021 9:45 AM EDT) Narrative Patrice Quintero MD - 02/21/2021 2:58 PM EDT Remote interrogation of implantable loop recorder. 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: [employer] Symptoms: 0 Pauses: 0 Bradycardia: 0 Tachycardia: [...] documented as of this encounter Care Teams Paddock Judge Relationship Specialty Start Date End Date Giovanna Garcia NP [email or web address] PCP - General Family Medicine 11/15/17 08/22/23 Unknown, Daxa, PCP - General 08/23/23 03/07/24 Hayley Ni MD [address] [place] [address] [place] [address] PCP - General Internal Medicine 03/08/24 Geronimo Beltran MD [address] [place] [address] [email or web address] Insurance Assigned Provider 09/19/20 06/17/23 Emely Barnes, RN [address] [place] [address] [email or web address] Smoking Pipe Coater 07/27/21 08/10/21 documented as of this encounter Additional Source Comments The information contained in this document represents components of the legal health record. It is not the complete legal health record.[facility]
--- OUTSIDE RECORDS SUMMARY | 2025-02-14 10:50 | XMS_ITS | Encounter Summary ---
Author Organization [facility] Address [address] [facility] [address] [place] [address] Phone Care Team Providers Care In School Suspension Aide Name Role Phone Giovanna Garcia NP Primary Care Provider [phone] Geronimo Beltran MD Unavailable [phone] Emely Barnes RN Unavailable [phone] Unknown, Unknown Primary Care Provider Hayley Couch MD Primary Care Provider Encounter Details Date Type Department Care Team (Late st Contact Info) Description 11/16/2020 Procedure Pass Non-Invasive Cardiology [address] [place] [address] Social History Tobacco Use Types Packs/Day Years [...] PM EST Office Visit [facility] [address] [place] [address] Efrain Melgar DO [address] [place] [address] [email or web address] documented as of this encounter Visit Diagnoses [...] documented as of this encounter Care Teams In School Suspension Aide Relationship Specialty Start Date End Date Giovanna Garcia NP [email or web address] PCP - General Family Medicine 11/15/17 08/22/23 Unknown, Unknown, PCP - General 08/23/23 03/07/24 Hayley Ni MD [facility] [address] PCP - General Internal Medicine 03/08/24 Geronimo Beltran MD [address] [place] [address] [email or web address] Insurance Assigned Provider 09/19/20 06/17/23 Emely Barnes, ABE [address] [place] [phone] [employer] Soap Press Feeder 07/27/21 08/10/21 documented as of this encounter Additional Source Comments The information contained in this document represents components of the legal health record. It is not the complete legal health record.[facility]
--- OUTSIDE RECORDS SUMMARY | 2025-02-14 10:50 | XMS_ITS | Encounter Summary ---
Author Organization [facility] Address [address] [facility] [address] [place] [address] Phone Care Team Providers Care Fire Manager Name Role Phone Giovanna Garcia NP Primary Care Provider [phone] Geronimo Beltran MD Unavailable [phone] Emely Barnes RN Unavailable [phone] Unknown, Unknown Primary Care Provider Hayley Couch MD Primary Care Provider Reason for Referral * MRI/CAT Scan - Closed Specialty Diagnoses / Procedures Referred By Braulio sheehan Referred To Contact Radiology Diagnoses White matter disease, unspecified Numbness Procedures MRI Thoracic Spine Efrain Elliott MD Phone: tel: fax: mailto:[email or web address] Referral ID Status Reason Start Date Expiration Date Visits Re quested Visits Authorized [id number] Closed 03/17/2020 03/17/2021 1 1 Encounter Details Date Type Department Care Team (Latest Contact Info) Description 03/17/2020 Transcribe Orders Virtual Department [address] [place] [address] Efrain Elliott MD [address] [place] [address], [address] [place], [place] [id number] [email or web address] White matter disease, unspecified (Primary Dx); Numbness Social History Tobacco Use Types Packs/Day Years [...] 1:40 PM EST Office Visit [facility] [address] [place] [address] Efrain Melgar DO [address] [place] [address] [email or web address] documented as of this encounter Results * MRI THORACIC SPINE (NEURO) WITH AND WITHOUT CONTRAST (03/25/2020 10:31 PM EDT) Anatomical Region Laterality Modality T-spine Magnetic Resonan ce 03/26/2020 9:37 AM EDT Impressions 03/26/2020 9:49 AM EDT 1. No evidence of demyelinating disease within the cord at any level. 2. New mild compression of the lower endplate of T6 since April 2019 with cysts very subtle deviation of the cord towards the vertebral body possibly indicating intrathecal adhesions but again, no abnormal signal in the cord. 3. No disc protrusion or stenosis. POS [id number] Narrative 03/26/2020 9:49 AM EDT TECHNIQUE: 1.5 Julita scanner. Imaging without and with IV contrast. Compare to chest CT PA 04/26/2019. FINDINGS: There is minimal compression of the lower endplate of T6 which was not present on the CT on 04/26/2019 and is accompanied by mild marrow edema further indicating that it is recent. No other marrow changes at any level to suggest bony trauma, tumor or infection. The vertebral bodies are well-aligned. No abnormal signal is seen within the cord at any level. The cord does appear to be slightly displaced towards the T6 vertebral body with loss of the tiny rim of CSF seen in the thecal sac between the cord and the posterior edge of the body at all the other levels possibly indicating intrathecal adhesions related to the compression fracture. This is of doubtful significance. There are a few levels of minor disc desiccation but no significant disc bulge nor focal protrusion at any level. No stenosis at any level. Procedure Note Allan Burger MD - 03/26/2020 TECHNIQUE: 1.5 Julita scanner. Imaging without and with IV contrast. Compare to chest CT PA 04/26/2019. FINDINGS: There is minimal compression of the lower endplate of T6 which was notpresent on the CT on 04/26/2019 and is accompanied by mild marrow edemafurther indicating that it is recent. No other marrow changes at any level to suggest bony trauma, tumor orinfection. The vertebral bodies are well-aligned. No abnormal signal is seen within the cord at any level. The cord does appear to be slightly displaced towards the T6 vertebralbody with loss of the tiny rim of CSF seen in the thecal sac between thecord and the posterior edge of the body at all the other levels possiblyindicating intrathecal adhesions related to the compression fracture. Thisis of doubtful significance. There are a few levels of minor disc desiccation but no significant discbulge nor focal protrusion at any level. No stenosis at any level. IMPRESSION: 1. No evidence of demyelinating disease within the cord at any level. 2. New mild compression of the lower endplate of T6 since April 2019with cysts very subtle deviation of the cord towards the vertebral bodypossibly indicating intrathecal adhesions but again, no abnormal signal inthe cord. 3. No disc protrusion or stenosis. POS [id number] Efrain Elliott MD IMG MR XSPECIALTY Final Resu lt documented in this encounter Visit Diagnoses Diagnosis White matter disease, unspecified- Primary Numbness Disturbance of skin sensation White matter disease, unspecified Numbness Disturbance of skin sensation documented in this encounter Additional Health Concerns [...] documented as of this encounter Care Teams Fire Manager Relationship Specialty Start Date End Date Giovanna Garcia NP [email or web address] PCP - General Family Medicine 11/15/17 08/22/23 Unknown, [place], PCP - General 08/23/23 03/07/24 Hayley Ni MD [facility] [place] [address] PCP - General Internal Medicine 03/08/24 Geronimo Beltran MD [address] [place] [address] [email or web address] Insurance Assigned Provider 09/19/20 06/17/23 Emely Barnes, ABE [address] [place] [address] [email or web address] iCMP Press Feeder 07/27/21 08/10/21 documented as of this encounter Additional Source Comments The information contained in this document represents components of the legal health record. It is not the complete legal health record.[facility]
--- OUTSIDE RECORDS SUMMARY | 2025-02-14 10:50 | XMS_ITS | Encounter Summary ---
Author Organization [facility] Address [address] [facility] [address] [place] [address] Phone Care Team Providers Care Field Artillery Senior Sergeant Name Role Phone Giovanna Garcia NP Primary Care Provider [phone] Geronimo Beltran MD Unavailable [phone] Emely Barnes RN Unavailable [phone] Unknown, Unknown Primary Care Provider Hayley Couch MD Primary Care Provider Encounter Details Date Type Department Care Team (Late st Contact Info) Description 02/16/2021 Procedure Pass Non-Invasive Cardiology [address] [place] [address] Social History Tobacco Use Types Packs/Day Years [...] PM EST Office Visit [facility] [address] [place] [address] Efrain Melgar DO [address] [place] [address] [email or web address] documented as of this encounter Visit Diagnoses [...] documented as of this encounter Care Teams Field Artillery Senior Sergeant Relationship Specialty Start Date End Date Giovanna Garcia NP [email or web address] PCP - General Family Medicine 11/15/17 08/22/23 Unknown, Unknown, PCP - General 08/23/23 03/07/24 Hayley Ni MD [facility] [place] [address] PCP - General Internal Medicine 03/08/24 Geronimo Beltran MD [address] [place] [address] [email or web address] Insurance Assigned Provider 09/19/20 06/17/23 Emely Barnes, ABE [address] [place] [address] iCMP Shoemaker Custom 07/27/21 08/10/21 documented as of this encounter Additional Source Comments The information contained in this document represents components of the legal health record. It is not the complete legal health record.[facility]
--- OUTSIDE RECORDS SUMMARY | 2025-02-14 10:50 | XMS_ITS | Encounter Summary ---
Author Organization [facility] Address 399 [facility] [address] [place] [address] Phone Care Team Providers Care Hospital Admissions Clerk Name Role Phone Giovanna Garcia NP Primary Care Provider [phone] Geronimo Beltran MD Unavailable [phone] Emely Barnes RN Unavailable [phone] Unknown, Unknown Primary Care Provider Hayley Couch MD Primary Care Provider Encounter Details Date Type Department Care Team (Late st Contact Info) Description 03/13/2020 Procedure Pass [facility] [address] [place] [address] Social History Tobacco Use Types Packs/Day Years Used Date Smoking Tobacco: Former Cigarettes 1 45 0 09/06/1970 - 09/07/2015 Smokeless Tobacco: Never Alcohol Use Standard Drinks/Week Comments Not Currently 0 (1 standard drink = 0.6 oz [...] documented as of this encounter Functional Status documented as of this encounter Plan of Treatment Upcoming Encounters Date Type Department Care Team (Late Contact Info) Description 07/10/2025 1:40 PM EST Office Visit [facility] [address] Efrain Melgar DO [address] [place] [address] [email or web address] documented as of this encounter Visit Diagnoses [...] documented as of this encounter Care Teams Hospital Admissions Clerk Relationship Specialty Start Date End Date Giovanna Garcia NP [email or web address] PCP - General Family Medicine 11/15/17 08/22/23 Unknown, Unknown, PCP - General 08/23/23 03/07/24 Hayley Ni MD [address] [facility] [place] [address] PCP - General Internal Medicine 03/08/24 Geronimo Beltran MD [address] [place] [address] [email or web address] Insurance Assigned Provider 09/19/20 06/17/23 Emely Barnes, ABE [address] [place] [address] [email or web address] iCMP Counselor Aid 07/27/21 08/10/21 documented as of this encounter Additional Source Comments The information contained in this document represents components of the legal health record. It is not the complete legal health record.[facility]
[2025-02-14 10:51] LABS: UACC Culture Trigger YES
--- OUTSIDE RECORDS SUMMARY | 2025-02-14 10:51 | XMS_ITS | Encounter Summary ---
Author Organization [facility] Address [address] [employer] [facility] [address] [place] [address] Phone Care Team Providers Care Ice Cream Man Name Role Phone Giovanna Garcia NP Primary Care Provider [phone] Geronimo Beltran MD Unavailable [phone] Emely Barnes RN Unavailable [phone] Unknown, Unknown Primary Care Provider Hayley Couch MD Primary Care Provider Encounter Details Date Type Department Care Team (Late Contact Info) Description 03/20/2019 Ancillary Orders [facility] [address] [place], [place] [phone] System, Provider [place] In, [place] [address] Social History Tobacco Use Types Packs/Day Years [...] 1:40 PM EST Office Visit [facility] [address] [place] [address] [place] [address] Efrain Melgar DO 22 [place] [address] [email or web address] documented as of this encounter Results * Mammogram Outside (No Interpretation) (08/14/2013 12:00 AM EST) Narrative SYSTEMGENERATED, DOCUMENTATION - 03/20/2019 12:52 PM EDT This study is for PACS [...] Noted Time PHQ-2 Depression Total Score: 0 03/20/20 19 9:59 AM EDT documented as of this encounter Care Teams Ice Cream Man Relationship Specialty Start Date End Date Giovanna Garcia NP [email or web address] PCP - General Family Medicine 11/15/17 08/22/23 Unknown, Unknown, MD PCP - General 08/23/23 03/07/24 Hayley Ni MD [address] [place] [address] [place] [address] PCP - General Internal Medicine 03/08/24 Geronimo Beltran MD [address] [place] [address] [email or web address] Insurance Assigned Provider 09/19/20 06/17/23 Emely Barnes, RN [address] [place] [address] [email or web address] iCMP Tower Climber 07/27/21 08/10/21 documented as of this encounter Additional Source Comments The information contained in this document represents components of the legal health record. It is not the complete legal health record.[facility]
--- OUTSIDE RECORDS SUMMARY | 2025-02-14 10:51 | XMS_ITS | Encounter Summary ---
Author Organization [facility] Address 399 [facility] [address] [place] [address] Phone Care Team Providers Care Snow Blower Name Role Phone Giovanna Garcia NP Primary Care Provider [phone] Geronimo Beltran MD Unavailable [phone] Emely Barnes RN Unavailable [phone] Unknown, Unknown Primary Care Provider Hayley Couch MD Primary Care Provider Encounter Details Date Type Department Care Team (Late st Contact Info) Description 03/10/2020 Procedure Pass [facility], Ct Scan - [address] [address] Social History Tobacco Use Types Packs/Day Years [...] 1:40 PM EST Office Visit [facility] [address] Efrain Melgar DO [address] [place] [address] [email or web address] documented as of this encounter [...] documented as of this encounter Care Teams Snow Blower Relationship Specialty Start Date End Date Giovanna Garcia NP [email or web address] PCP - General Family Medicine 11/15/17 08/22/23 Unknown, Unknown, MD PCP - General 08/23/23 03/07/24 Hayley Ni MD [facility] [place] [address] PCP - General Internal Medicine 03/08/24 Geronimo Beltran MD [address] [place] [address] [email or web address] Insurance Assigned Provider 09/19/20 06/17/23 Emely Barnes, ABE [address] [place] [address] [email or web address] iCMP Social Media Content Specialist 07/27/21 08/10/21 documented as of this encounter Additional Source Comments The information contained in this document represents components of the legal health record. It is not the complete legal health record.[facility]
--- OUTSIDE RECORDS SUMMARY | 2025-02-14 10:51 | XMS_ITS | Encounter Summary ---
Author Organization [facility] Address [address] [facility] [address] [place] [address] Phone Care Team Providers Care Ferris Wheel Attendant Name Role Phone Giovanna Garcia NP Primary Care Provider [phone] Geronimo Beltran MD Unavailable [phone] Emely Barnes RN Unavailable [phone] Unknown, Unknown Primary Care Provider Hayley Couch MD Primary Care Provider Encounter Details Date Type Department Care Team (Late Contact Info) Description 03/20/2019 Ancillary Orders ,Outside [facility] [address] [place], [place] [id number] System, Provider [place] In, [place] [address] Social History Tobacco Use Types Packs/Day Years [...] 1:40 PM EST Office Visit [facility] [address] [place] [address] [place] [address] Efrain Melgar DO [address] [place] [address] [email or web address] documented as of this encounter Results * Mammogram Outside (No Interpretation) (11/30/2016 12:00 AM EDT) Narrative SYSTEMGENERATED, DOCUMENTATION - 03/20/2019 12:55 PM EDT This study is for PACS [...] documented as of this encounter Care Teams Ferris Wheel Attendant Relationship Specialty Start Date End Date Giovanna Garcia NP [email or web address] PCP - General Family Medicine 11/15/17 08/22/23 Unknown, Unknown, MD PCP - General 08/23/23 03/07/24 Hayley Ni MD [address] [place] [address] [place] [address] PCP - General Internal Medicine 03/08/24 Geronimo Beltran MD [address] [place] [address] [email or web address] Insurance Assigned Provider 09/19/20 06/17/23 Emely Barnes, RN [address] [place] [address] [email or web address] iCMP Rn Psych 07/27/21 08/10/21 documented as of this encounter Additional Source Comments The information contained in this document represents components of the legal health record. It is not the complete legal health record.[facility]
--- OUTSIDE RECORDS SUMMARY | 2025-02-14 10:51 | XMS_ITS | Encounter Summary ---
Author Organization [facility] Address 399 [facility] [address] [place] [address] Phone Care Team Providers Care Reefer Engineer Name Role Phone Giovanna Garcia NP Primary Care Provider [phone] Geronimo Beltran MD Unavailable [phone] Emely Barnes RN Unavailable [phone] Unknown, Unknown Primary Care Provider Hayley Couch MD Primary Care Provider Encounter Details Date Type Department Care Team (Late st Contact Info) Description 03/10/2020 Procedure Pass [facility], Ct Scan - [address] [address] Social History Tobacco Use Types Packs/Day Years [...] 1:40 PM EST Office Visit [facility] [address] Efrain Melgar DO [address] [place] [address] [email or web address] documented as of this encounter Visit Diagnoses [...] documented as of this encounter Care Teams Reefer Engineer Relationship Specialty Start Date End Date Giovanna Garcia NP [email or web address] PCP - General Family Medicine 11/15/17 08/22/23 Unknown, Unknown, MD PCP - General 08/23/23 03/07/24 Hayley Ni MD [facility] [place] [address] PCP - General Internal Medicine 03/08/24 Geronimo Beltarn MD [address] [place] [address] [email or web address] Insurance Assigned Provider 09/19/20 06/17/23 Emely Barnes, ABE [address] [place] [address] [email or web address] iCMP Cd Technician 07/27/21 08/10/21 documented as of this encounter Additional Source Comments The information contained in this document represents components of the legal health record. It is not the complete legal health record.[facility]
--- OUTSIDE RECORDS SUMMARY | 2025-02-14 10:51 | XMS_ITS | Encounter Summary ---
Author Organization [facility] Address [address] [employer] [facility] [address] [place] [address] Phone Care Team Providers Care Parish Worker Name Role Phone Giovanna Garcia NP Primary Care Provider [phone] Geronimo Beltran MD Unavailable [phone] Emely Barnes RN Unavailable [phone] Unknown, Unknown Primary Care Provider Hayley Couch MD Primary Care Provider Encounter Details Date Type Department Care Team (Late Contact Info) Description 03/20/2019 Ancillary Orders [facility],Outside [facility] [address] [place], [place] [id number] System, Provider [place] In, [place] [address] Social History Tobacco Use Types Packs/Day Years [...] 1:40 PM EST Office Visit [facility] [address] [place] [address] [place] [address] Efrain Melgar DO [address] [place] [address] [email or web address] documented as of this encounter Results * [...] documented as of this encounter Care Teams Parish Worker Relationship Specialty Start Date End Date Giovanna Garcia NP [email or web address] PCP - General Family Medicine 11/15/17 08/22/23 Unknown, Unknown, MD PCP - General 08/23/23 03/07/24 Hayley Ni MD [address] [place] [address] [place] [address] PCP - General Internal Medicine 03/08/24 Geronimo Beltran MD [address] [place] [address] [email or web address] Insurance Assigned Provider 09/19/20 06/17/23 Emely Barnes, RN [address] [place] [address] [email or web address] iCMP Entrepreneurship Program Director 07/27/21 08/10/21 documented as of this encounter Additional Source Comments The information contained in this document represents components of the legal health record. It is not the complete legal health record.[facility]
--- OUTSIDE RECORDS SUMMARY | 2025-02-14 10:52 | XMS_ITS | Encounter Summary ---
Author Organization [facility] Address [address] [employer] [facility] [address] [place] [address] Phone Care Team Providers Care Rn Assessment Name Role Phone Giovanna Garcia NP Primary Care Provider [phone] Geronimo Beltran MD Unavailable [phone] Emely Barnes RN Unavailable [phone] Unknown, Unknown Primary Care Provider Hayley Couch MD Primary Care Provider Encounter Details Date Type Department Care Team (Late Contact Info) Description 03/20/2019 Ancillary Orders [facility],Outside [facility] [address] [place], [place] [phone] System, Provider Not In, [place] [address] Social History Tobacco Use Types Packs/Day Years [...] 1:40 PM EST Office Visit [facility] [address] [place] [address] [place] [address] Efrain Melgar DO [address] [place] [address] [email or web address] documented as of this encounter Results * [...] documented as of this encounter Care Teams Rn Assessment Relationship Specialty Start Date End Date Giovanna Garcia NP [email or web address] PCP - General Family Medicine 11/15/17 08/22/23 Unknown, Unknown, MD PCP - General 08/23/23 03/07/24 Hayley Ni MD [address] [place] [address] [place] [address] PCP - General Internal Medicine 03/08/24 Geronimo Beltran MD [address] [place] [address] [email or web address] Insurance Assigned Provider 09/19/20 06/17/23 Emely Barnes, RN [address] [place] [address] [email or web address] iCMP Gate Manager 07/27/21 08/10/21 documented as of this encounter Additional Source Comments The information contained in this document represents components of the legal health record. It is not the complete legal health record.[facility]
== END 2025-02-14 08:03 | disposition home or self-care (01) ==
LOC: HO.LNP 08:02
PROVIDERS: PCP Internal Medicine; Visit Provider Physician Assistant
DX: N39.0 Urinary tract infection, site not specified (principal)
CPT/HCPCS: 81001; 81003; 87086; 87088; 87186; 99212

== ENCOUNTER 2025-02-14 08:02 | Outpatient (AMB) | payer MEDICARE, SELFPAY ==
--- OUTSIDE RECORDS SUMMARY | 2025-02-14 08:05 | XMS_ITS | Patient Health Record ---
Author Organization [facility] Address [address] [place] [address] Care Team Providers Care Safe And Vault Installer Name Role Phone Abigail Em MD Primary Care Provider Noah Hummel [phone] Allergies Allergen (clinical drug ingredient) Drug/Non Drug [...] Problem Status W/U Status Risk Notes Problem [id number] Encounter for screening for malignant neoplasm of colon (Z12.11) Active confirmed Problem 913505498 History of adenomatous polyp of colon (Z86.010) Active confirmed Problem Nausea and vomiting (43928328) Nausea with vomiting, unspecified (R11.2) Active confirmed Problem 132847242 Gastroesophageal reflux disease without esophagitis (K21.9) Active confirmed Problem 44239783 Dysphagia, unspecified type (R13.10) Active confirmed Problem Acute diarrhea (859911311) Acute diarrhea (R19.7) Active confirmed Plan Of [...] Date MEDICARE OF [place] [address] [facility] [id number] [phone] [id number] VJ MCGUIRE Self - patient is the insured [employer] ATTN CLAIMS [address] [place] [address] [id number] 2 VJ MCGUIRE Self - patient is [...] some sigmoid diverticulosis and internal hemorrhoids Denies PA,CVA,DM,renal disease Hyperlipidemia Anxiety since 08/2011 IBS-EGD with normal duodenal biopsies in 2012 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 during the day; going for a sleep study as of the 11/2019 OV to check for sleep apnea Pneumonia in 09/2015--at [facility] Hypertension Grand mal seizure 02/2020 at [facility] Atrial fibrillation with a l [...]
--- OUTSIDE RECORDS SUMMARY | 2025-02-14 08:05 | XMS_ITS | Clinical Summary ---
Author Organization [facility] Address [address] [place] [address] Phone Care Team Providers Care Development Professional Name Role Phone Hayley Ni MD Primary [...] mg total) by mouth daily. 3 Active [place] Saline 0.65 % nasal spray 2 DRP [...] age to complete this topic Insurance MEDICARE [facility] Care Teams Development Professional Relationship Specialty Start Date End Date Hayley Ni MD [address] [place] [address] PCP - General 11/10/23
[2025-02-14 08:22] VITALS: BP 148/60; PULSE 88; TEMP 36.7; O2SAT 95; BMI 23.2
--- NOTE | 2025-02-14 08:22 | AM.OFFWIN_ITS ---
Intake Vital Signs 02/14/25 08:22 Height 5 ft 6 in Weight 144 lb BMI 23.2 BP 148/60 H Blood Pressure Location Lt brachial Position Sitting Pulse 88 Pulse Source Pulse Oximeter Temp 98.1 F Temp Source Oral Pulse Oximetry (%) 95 Oxygen Delivery Method Room Air Intake Visit Reasons: EP UTI? Patient Tobacco Use Status: Former Tobacco user Allergies bupropion (From Wellbutrin) Allergy (Verified 02/14/25 08:27) Chest Pain ciprofloxacin Allergy (Verified 02/14/25 08:27) Chest Pain IV/IM prednisone Allergy (Uncoded 11/25/24 09:46) Seizure Do you need a note to return to daycare/school/sports/work: No HPI HPI Comments History of Present Illness Details History - The patient is a 69-year-old female pr esenting with recurrent urinary tract infection. - Woke up overnight with same pain she g ets, no fevers. - She has a history of recurrent urinary tract infections, typically caused by E. coli, and has been treated with cephalosporins, which have been effective in the past. - The patient is postmenopausal for over 30 years and has never used hormone replacement therapy. - She has an appt with Urology on 02/20 f or this issue. Physical Exam General: Cooperative, healthy appearing, comfortable, no acute distress and well developed Orientation: Patient oriented x3 Limitations: No limitations Head: Normal to inspection Ears: Hearing grossly normal bilaterally Face and sinus: Normal facial exam Neck: Normal visual inspection and Yes full ROM Respiratory: Normal respiratory effort and able to speak in complete sentences. Skin: No rashes or lesions noted Neuro: Patient oriented x3 [facility] Medical History Recurrent urinary tract infection History of lung cancer Dyslipidemia History of adenomatous polyp of colon Hx of TIA (transient ischemic attack) and stroke History of seizure disorder Achalasia of esophagus Osteoporosis HTN (hypertension) KRISTEN on CPAP Asthma-COPD overlap syndrome GERD (gastroesophageal reflux disease) Surgical History S/P cardiac catheterization S/P partial lobectomy of lung H/O wrist surgery History of cholecystectomy Family History Mother Small cell lung cancer Father Stomach cancer Brother Diabetes Throat cancer Social History Household Members: Spouse and Children Housing: House Do you presently have visiting nurse or other home services: No Alcohol intake: current Alcohol intake frequency: does not drink Patient Tobacco Use Status: Former Tobacco user Years Smoked: 30 +/- e-Cigarette/Vaping Use: Never Used Substance Use Type: Marijuana Advance Directives Date on File: 04/21/22 service: No Current occupational status: retired Cognitive needs: No Hearing needs: No Vision needs: Yes Review of Systems Const All systems reviewed & are unremarkable except as noted in HPI and below Physical Exam Vital Signs: Last Vital Signs Temp 98.1 F 02/14/25 08:22 Pulse 88 02/14/25 08:22 BP 148/60 H 02/14/25 08:22 Pulse Ox 95 02/14/25 08:22 Oxygen Delivery Method Room Air 02/14/25 08:22 BMI result Body Mass Index 23.2 Assessment & Plan Assessment & Plan (1) Recurrent urinary tract infection: Code(s): N39.0 - Urinary tract infection, site not specified Plan: Plan Patient was informed and verbally consented to the use of an ambient scribe for clinic note documentation during this visit. - UA with 3+ leuks, + nitrites, 1+ blood - Treatment with Cefuroxime 500 mg twice daily for five days. - Sent urine culture to confirm E. coli presence which is what she typically has and guide treatment. - Follow up with Urology at [facility] on 02/20 Orders: Orders AMB Urinalysis Automated Today Z13.9 - Encounter for screening, unspecified Medications: New cefuroxime axetil 500 mg PO Q12H 10 tabs 0RF Coding Level of Care Code Est Pt Level 3 (86906) Diagnoses Recurrent urinary tract infection N39.0
== END 2025-02-14 09:07 | disposition home or self-care (01) ==
PROVIDERS: PCP Internal Medicine; Visit Provider Physician Assistant
DX: N39.0 Urinary tract infection, site not specified (principal); Z13.9 Encounter for screening, unspecified

== ENCOUNTER 2025-02-20 14:13 | Outpatient (AMB) | payer MEDICARE, SELFPAY ==
--- OUTSIDE RECORDS SUMMARY | 2010-03-01 | XMS_ITS | Encounter Summary ---
Author Organization [facility] Address [address] [place] [address] Phone Care Team Providers Care Founder Ceo & President Name Role Phone Unavailable Primary Care Provider Unavailabl e Encounter Details Date Type Department Care Team (Late st Contact Info) Description 03/01/2010 Hospital Encounter [facility],Outside Imaging 30 [place], [place] [phone] System, Provider Not In, [facility] [address] [address] Social History Tobacco Use Types Packs/Day Years [...] 1:41 PM EDT Vivi Thomas RN * [place] Suicide Severity Rating Scale (Screener/Recent Self-Report) Question [...] PM EST Office Visit [facility] [address] [place] [address] Efrain Melgar DO 22 [place] [address] [email or web address] documented as of this encounter Procedures Procedure [...] It is not the complete legal health record.[facility]
--- OUTSIDE RECORDS SUMMARY | 2012-01-30 | XMS_ITS | Encounter Summary ---
Author Organization [facility] Address [address] [place] [address] Phone Care Team Providers Care Education Intern Name Role Phone Unavailable Primary Care Provider Unavailabl e Encounter Details Date Type Department Care Team (Late st Contact Info) Description 01/30/2012 Hospital Encounter [facility],Outside Imaging 30 [place], [place] [phone] System, Provider Not In, [facility] [address] [address] Social History Tobacco Use Types Packs/Day Years [...] 1:41 PM EDT Vivi Thomas RN * [place] Suicide Severity Rating Scale (Screener/Recent Self-Report) Question [...] PM EST Office Visit [facility] [address] [place] [address] Efrain Melgar DO 22 [place] [address] [email or web address] documented as of this encounter Procedures [...] It is not the complete legal health record.[facility]
--- NOTE | 2025-02-20 14:19 | A.OFFVIS_ITS ---
Intake Visit Reasons: Cysto Intake Note: Patient presents today for a cystoscopy Urology Medication:None Blood Thinner:Xarelto Antibiotic Allergies:Ciprofloxacin Lot:[id number] Exp:09/05/27 Allergies bupropion (From Wellbutrin) Allergy (Verified 02/20/25 14:27) Chest Pain ciprofloxacin Allergy (Verified 02/20/25 14:27) Chest Pain IV/IM prednisone Allergy (Uncoded 11/25/24 09:46) Seizure Medication List - Last Reconciled 02/20/25 by Nilson Solomon MD albuterol sulfate 90 mcg/actuation 2 puffs inhalation Q4H PRN calcium carbonate-vitamin D3 600 mg-20 mcg (800 unit) (Caltrate with Vitamin D3) 1 tab PO DAILY cholecalciferol (vitamin D3) 1,250 mcg PO QWEEK diltiazem HCl ER 240 mg PO DAILY flecainide 100 mg PO Q12H misedazapvq-rrccjjzux-brepeyss 200-62.5-25 mcg (Trelegy Ellipta) 1 inh inhalation DAILY 30 days lamotrigine 100 mg PO BID levalbuterol HCl 1.25 mg (3 mL) inhalation BID 30 days nebulizers As directed omeprazole 40 mg PO BID Oxygen Home Use As directed phenazopyridine (Azo Urinary Pain Relief) 95 mg PO TID PRN rivaroxaban (Xarelto) 20 mg PO QPM HPI Comments Details: 02/20/25--recurrent UTIs. Here for office cystoscopy. Persistent bacteriuria-E coli. Office cystoscopy atrophic urethra, passive dilation, bladder wall thickening no suspicious bladder lesions visualized. Urine cytology 03/31 4- for malignant cells. I will place her on suppressive course of Macrobid for 30 days and then start Hiprex b.i.d.. I have discussed use of vaginal estrogen therapy. Benefits of vaginal estrogen use in the treatment of recurrent UTI's in gali and post menaupausal women. Vaginal estrogen has been found to decrease vaginal PH, increase lactobacillus in the epithium of the vagina. Follow-up in 8 weeks 12/05/24-- - The patient is a 69-year-old female presenting with recurrent urinary tract infections. - The patient has been experiencing frequent urinary tract infections since January of the previous year, confirmed by positive urine cultures. - The most recent culture on November 25, 2024, showed E. coli, with previous cultures showing Enterococcus and E. paralae with varying antibiotic resistance. - The patient reports symptoms such as pain and urinary urgency, with episodes occurring as frequently as three times a month. - She has been on various antibiotics, including Cefuroxime and Nitrofurantoin, with varying effectiveness. - A CT scan of the abdomen and pelvis in August 2024 showed no renal stones or masses but noted a large amount of stool throughout the colon. - The patient has been experiencing tailbone and lower back pain for the last few months, which she associates with her urinary symptoms. - Discussed constipation with dietary changes, including the use of probiotics and apple cider vinegar, to improve bowel regularity and reduce UTI risk. Results - Labs: Urine cultures positive for E. coli on 11/25/24, Enterococcus on 11/08/24, and E. paralae on 10/26/24. - Imaging: CT scan of the abdomen and pelvis on 08/28/24 showed no renal stones or masses but a large amount of stool throughout the colon. [facility] Medical History Recurrent urinary tract infection History of lung cancer Dyslipidemia History of adenomatous polyp of colon Hx of TIA (transient ischemic attack) and stroke History of seizure disorder Achalasia of esophagus Osteoporosis HTN (hypertension) KRISTEN on CPAP Asthma-COPD overlap syndrome GERD (gastroesophageal reflux disease) Surgical History S/P cardiac catheterization S/P partial lobectomy of lung H/O wrist surgery History of cholecystectomy Family History Mother Small cell lung cancer Father Stomach cancer Brother Diabetes Throat cancer Social History Household Members: Spouse and Children Housing: House Do you presently have visiting nurse or other home services: No Alcohol intake: current Alcohol intake frequency: does not drink Patient Tobacco Use Status: Former Tobacco user Years Smoked: 30 +/- e-Cigarette/Vaping Use: Never Used Substance Use Type: Marijuana Advance Directives Date on File: 04/21/22 service: No Current occupational status: retired Cognitive needs: No Hearing needs: No Vision needs: Yes Review of Systems Const All systems reviewed & are unremarkable except as noted in HPI and below Reports no additional complaints Eyes Reports no additional complaints ENT Reports no additional complaints Card Reports no additional complaints Resp Reports no additional complaints GI Reports no additional complaints Reports as per HPI Musc Reports no additional complaints Skin/Breast Reports system reviewed and no additional complaints, except as documented Neuro Reports no additional complaints Psych Reports no additional complaints Endo Reports no additional complaints Ga/Lymph Reports no additional complaints Aller/Immun Reports no additional complaints Office Procedures Cystoscopy Consent Discussed risk and benefit or proposed procedure with the patient. Information consent for procedure given to the patient. Discussed technical aspects, risks, benefits and alternatives in full. Addressed all of the patient's questions and concerns regarding the procedure. The patient demonstrated knowledge and understanding. They wish to proceed with this procedure. Preparation The patient was prepped in the usual manner. A customer security clerk was present and in the room. Genitalia was prepped with betadine solution in a sterile manner. Lidocaine Jelly 2% was placed into the urethra and 16Fr flexible Olympus cystoscope was inserted into the meatus after adequate lubrication. Procedure Time out per protocol performed. Speculum used as indicated for adequate visualization of urethra, the flexible cystoscope is passed transurethrally: The bladder was inspected in its entirety with utilization retroflexion displaying: Tumor(s): no suspicious bladder lesions visualized Trabeculation: Moderate with cellule changes Mucosal Erthema: mild Orifices: normal shape and position Urethra: Atrophic 11452-Nufebhhdui DISPOSABLE SCOPE URO-G FLEXIBLE SCOPE Procedure code (CPT) selection complete Office Meds lidocaine HCl 2 % mucosal jelly in applicator Performing Provider: Nilson Solomon MD [facility] Administered by: Monie Almeida RN on 02/20/25 14:50 Dose Route Admin Location Dispensed Lot Number Expiration Date [facility] Power Brake Rebuilder 10 mL intra-urethral 20 mL nitrofurantoin monohydrate/macrocrystals 100 mg capsule Performing Provider: Nilson Solomon MD [facility] Administered by: Monie Almeida RN on 02/20/25 14:50 Dose Route Admin Location Dispensed Lot Number Expiration Date [facility] Power Brake Rebuilder 100 mg PO 1 cap phenazopyridine 200 mg tablet Performing Provider: Nilson Solomon MD Performing [facility] Administered by: Monie Almeida RN on 02/20/25 14:50 Dose Route Admin Location Dispensed Lot Number Expiration Date [facility] Power Brake Rebuilder 200 mg PO 1 tab Results Reviewed Results Reviewed: Collected: 02/14/25-UNK Status: COMP Req#: [id number] Received: 02/14/25-1057 Source: [facility] Desc: Clean Cat Subm Dr: Hayley Ni MD Ordered: Urine Culture Procedure Result Verified Urine Culture Final 02/16/25-740 Organism 1 Escherichia coli Quant > 100,000 cfu/mL E coli M.I.C. RX --------- --- Ampicillin <=2 S Cefazolin (Urine) <=1 S Cefepime <=0.12 S Ceftriaxone <=0.25 S Ciprofloxacin <=0.06 S Gentamicin <=1 S Nitrofurantoin <=16 S Trimethoprim/Sulfamethoxazole <=20 S Date of Service: 08/28/24 EXAMINATION: CT ABDOMEN PELVIS WITH IV CONTRAST HISTORY: R10.32 - Left lower quadrant pain COMPARISON: There are no prior studies for comparison. TECHNIQUE: CT scan of the abdomen and pelvis was performed following administration of 85 mL Omnipaque 350 using standard departmental protocol. Coronal and sagittal reformatted images were generated and reviewed. The patient received oral contrast material. This CT exam was performed with one or more of the following dose reduction techniques: automated exposure control, adjustment of the mA and/or kV according to patient size, use of iterative reconstruction technique. DLP: 422 mGy-cm FINDINGS: LOWER CHEST: The visualized lung bases are clear. There is no pleural effusion. CARDIOVASCULATURE: The heart is normal in size. There is no pericardial effusion. LIVER: The liver is normal in size and contour. No liver mass is identified. The hepatic and portal veins are patent. GALLBLADDER / BILE DUCTS: The gallbladder is surgically absent. There is no intra or extrahepatic biliary ductal dilatation. SPLEEN: The spleen is normal in size. No focal splenic lesion is identified. PANCREAS: The pancreas is unremarkable in appearance. ADRENAL GLANDS: Within normal limits. KIDNEYS/RETROPERITONEUM: The kidneys are mildly lobulated which may represent scarring. No renal calculi are identified. There is no hydronephrosis. No renal masses are identified. LYMPH NODES: No abdominal or pelvic lymphadenopathy. VASCULATURE: The abdominal aorta demonstrates atherosclerotic calcification, but is normal in caliber. MESENTERY/PERITONEUM: No free fluid. No masses. There is no free intraperitoneal gas. STOMACH: There is a small hiatal hernia. The remainder of the stomach is collapsed. SMALL BOWEL: The small bowel is normal in caliber. COLON: There is a large amount of stool throughout the colon. There is diverticulosis of the sigmoid colon, without evidence of diverticulitis. APPENDIX: Normal. URINARY BLADDER/PELVIC ORGANS: The urinary bladder is unremarkable. The uterus and ovaries are unremarkable. BONES / SOFT TISSUES: There is degenerative disc disease of the spine. IMPRESSION: 1. Large amount of stool throughout the colon. Sigmoid diverticulosis without evidence of diverticulitis. 2. Small hiatal hernia. Urine Cytology--Collected: 03/18/24 Location: [facility] Received: 03/19/24 Diagnosis Urine: Negative for high-grade urothelial carcinoma. See comment. COMMENT: Cellular specimen consisting of single urothelial cells with degenerative changes, squamous cells, rare red blood cells and occasional mixed inflammatory cells. Clinical History Urinary tract infection, site not specified Microscopic hematuria Frequent urinary tract infections Material Received Urine Gross Description Received is 19 cc of clear yellow fluid from which a ThinPrep slide is prepared. 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 I have discussed use of vaginal estrogen therapy. Follow-up in 8 weeks Orders: Orders AMB Cystoscopy Today N30.20 - Other chronic cystitis without hematuria Medications: New nitrofurantoin monohyd/m-cryst 100 mg (Macrobid) must administer with a meal/food 100 mg feeding tube DAILY 30 caps 0RF 30 days estradiol 0.01%(0.1mg/gram) (Estrace) use pea-sized amount to fingertip and apply vaginally at bedtime daily; 42.5 grams 1RF methenamine hippurate After completing 30 day course of macrobid - start hiprex bid 1 g PO BID 60 t abs 3RF Patient Instructions: The patient had an opportunity to ask questions regarding treatment plan. The patient expressed understanding and agreement with the above treatment plan. The patient is aware they should contact our office by phone for worsening of their current condition or the appearance of new symptoms. Compliance is en couraged with any medications and followup testing that is ordered. It is a privilege to be allowed the opportunity to participate in the urologic care of your patient. If you have any questions or concerns regarding treatment for the above conditions please do not hesitate to contact me. The office telephone contact is [phone]. This note is constructed in part using voice recognition software. While every effort has been made to ensure accuracy corporate development intern errors may have been included. Yours sincerely, Nilson Solomon MD Coding Level of Care Code Est Pt Level 4 (21501) Complex EM visit Add On G2211 Diagnoses Recurrent UTI N39.0 Chronic cystitis N30.20 Bladder wall thickening N32.89 Atrophy of urethra N36.8 CPT Codes Cystoscopy - CPT: 15663-Dlbrkiehho ([id number])
--- OUTSIDE RECORDS SUMMARY | 2025-02-20 18:00 | XMS_ITS | Encounter Summary ---
Author Organization [facility] Address [address] [place] [address] Phone Care Team Providers Care Milk Route Deliverer Name Role Phone Giovanna Garcia NP Primary Care Provider [phone] Geronimo Beltran MD Unavailable [phone] Unknown, Unknown Primary Care Provider Hayley Couch MD Primary Care Provider Encounter Details Date Type Department Care Team (Late st Contact Info) Description 02/09/2022 Transcribe Orders [facility] Laboratory [address] [facility] [place] [place] [address] Jacky Little MD [address] [address] [email or web address] Social History Tobacco Use Types Packs/Day Years [...] high school, GED, job training, learning the Portuguese language, technical skills, or developing parenting skills)? [...] 1:40 PM EST Office Visit [facility] [address] [place] [address] [place] [address] Efrain Melgar, DO [address] [place] [address] documented as of this encounter Visit Diagnoses Not on filedocumented in this encounter Additional Health Concerns Infection Onset Date Last Indicated Resolved Time CoV-Risk 03/29/2022 03/29/2022 04/09/2022 1:22 AM EDT Assessment Noted Time PHQ-2 Depression Total Score: 2 08/11/19 9:20 AM EST documented as of this encounter Care Teams Milk Route Deliverer Relationship Specialty Start Date End Date Giovanna Garcia NP [email or web address] PCP - General Family Medicine 11/15/17 08/22/23 Unknown, Unknown, MD PCP - General 08/23/23 03/07/24 Hayley Ni MD [facility] [place] [address] PCP - General Internal Medicine 03/08/24 Geronimo Beltran MD [address] [place] [address] [email or web address] Insurance Assigned Provider 09/19/20 06/17/23 documented as of this encounter Additional Source Comments The information contained in this document represents components of the legal health record. It is not the complete legal health record.[facility]
--- OUTSIDE RECORDS SUMMARY | 2025-02-20 18:00 | XMS_ITS | Encounter Summary ---
Author Organization [facility] Address [address] [facility] [address] [place] [address] Phone Care Team Providers Care Owner Oral Surgeon Name Role Phone Giovanna Garcia NP Primary Care Provider [phone] Geronimo Beltran MD Unavailable [phone] Emely Barnes RN Unavailable [phone] Unknown, Unknown Primary Care Provider Hayley Couch MD Primary Care Provider Encounter Details Date Type Department Care Team (Late st Contact Info) Description 03/27/2020 Procedure Pass [facility], [address] [address] Social History Tobacco Use Types Packs/Day Years [...] 1:40 PM EST Office Visit [facility] [address] Efrain Melgar DO [address] [place] [address] [email or web address] documented as of [...] documented as of this encounter Care Teams Owner Oral Surgeon Relationship Specialty Start Date End Date Giovanna Garcia NP [email or web address] PCP - General Family Medicine 11/15/17 08/22/23 Unknown, Unknown, PCP - General 08/23/23 03/07/24 Hayley Ni MD [address] [facility] [place] [address] PCP - General Internal Medicine 03/08/24 Geronimo Beltran MD [address] [place] [address] [email or web address] Insurance Assigned Provider 09/19/20 06/17/23 Emely Barnes, RN [address] [place] [address] [email or web address] [employer] Medical Sales Specialist 07/27/21 08/10/21 documented as of this encounter Additional Source Comments The information contained in this document represents components of the legal health record. It is not the complete legal health record.[facility]
--- OUTSIDE RECORDS SUMMARY | 2025-02-20 18:00 | XMS_ITS | Encounter Summary ---
Author Organization [facility] Address [address] [facility] [address] [place] [address] Phone Care Team Providers Care Math Coach Name Role Phone Giovanna Garcia NP Primary Care Provider [phone] Geronimo Beltran MD Unavailable [phone] Emely Barnes RN Unavailable [phone] Unknown, Unknown Primary Care Provider Hayley Couch MD Primary Care Provider Encounter Details Date Type Department Care Team (Late st Contact Info) Description 09/27/2018 Procedure Pass [facility], [address] [address] Social History Tobacco Use Types Packs/Day Years [...] PM EST Office Visit [facility] [address] [place] [address] Efrain Melgar DO [address] [place] [address] [email or web address] documented as of this encounter Visit [...] documented as of this encounter Care Teams Math Coach Relationship Specialty Start Date End Date Giovanna Garcia OFFICE SERVICES REPRESENTATIVE [email or web address] PCP - General Family Medicine 11/15/17 08/22/23 Unknown, Daxa, MD PCP - General 08/23/23 03/07/24 Hayley Ni MD [facility] [place] [address] PCP - General Internal Medicine 03/08/24 Geronimo Beltran MD [address] [place] [address] [email or web address] Insurance Assigned Provider 09/19/20 06/17/23 Emely Barnes, RN [address] [place] [phone] [email or web address] [email or web address] Security Representative 07/27/21 08/10/21 documented as of this encounter Additional Source Comments The information contained in this document represents components of the legal health record. It is not the complete legal health record.[facility]
--- OUTSIDE RECORDS SUMMARY | 2025-02-20 18:00 | XMS_ITS | Encounter Summary ---
Author Organization [facility] Address [address] [facility] [address] [place] [address] Phone Care Team Providers Care Actimize Architect Name Role Phone Giovanna Garcia NP Primary Care Provider [phone] Geronimo Beltran MD Unavailable [phone] Emely Barnes RN Unavailable [phone] Unknown, Unknown Primary Care Provider Hayley Couch MD Primary Care Provider Encounter Details Date Type Department Care Team (Late st Contact Info) Description 04/01/2020 Procedure Pass [facility]-In[facility]iology [address] [place] [address] Social History Tobacco Use Types Packs/Day Years [...] PM EST Office Visit [facility] [address] [place] [address] Efrain Melgar DO [address] [place] [address] [email or web address] documented as of this encounter Visit Diagnoses [...] documented as of this encounter Care Teams Actimize Architect Relationship Specialty Start Date End Date Giovanna Garcia NP [email or web address] PCP - General Family Medicine 11/15/17 08/22/23 Unknown, Unknown, PCP - General 08/23/23 03/07/24 Hayley Ni MD [facility] [place] [address] PCP - General Internal Medicine 03/08/24 Geronimo Beltran MD [address] [place] [address] Insurance Assigned Provider 09/19/20 06/17/23 Emely Barnes, RN [address] [place] [phone] [facility] 07/27/21 08/10/21 documented as of this encounter Additional Source Comments The information contained in this document represents components of the legal health record. It is not the complete legal health record.[facility]
--- OUTSIDE RECORDS SUMMARY | 2025-02-20 18:00 | XMS_ITS | Encounter Summary ---
Author Organization [facility] Address [address] [facility] [address] [place] [address] Phone Care Team Providers Care Orthopedic Dentist Name Role Phone Giovanna Garcia WOOD BUCKER Primary Care Provider [phone] Geronimo Beltran MD Unavailable [phone] Emely Barnes RN Unavailable [phone] Unknown, Unknown Primary Care Provider Hayley Couch MD Primary Care Provider Encounter Details Date Type Department Care Team (Late st Contact Info) Description 04/21/2020 Transcribe Orders [facility] [address] [place] [address] Ian Anderson MD, MS [address] [id number] [email or web address] Social History Tobacco Use Types Packs/Day Years [...] PM EST Office Visit [facility] [address] [place] [address] Efrain Melgar DO [address] [place] [address] [email or web address] documented as of this encounter Visit Diagnoses [...] documented as of this encounter Care Teams Orthopedic Dentist Relationship Specialty Start Date End Date Giovanna Garcia NP PCP - General Family Medicine 11/15/17 08/22/23 Unknown, Daxa, MD PCP - General 08/23/23 03/07/24 Hayley Ni MD [address] [facility] [place] [address] PCP - General Internal Medicine 03/08/24 Geronimo Beltran MD [address] [place] [address] [email or web address] Insurance Assigned Provider 09/19/20 06/17/23 Emely Barnes, RN [address] [place] [address] [email or web address] [employer] Putty Mixer 07/27/21 08/10/21 documented as of this encounter Additional Source Comments The information contained in this document represents components of the legal health record. It is not the complete legal health record.[facility]
--- OUTSIDE RECORDS SUMMARY | 2025-02-20 18:00 | XMS_ITS | Encounter Summary ---
Author Organization [facility] Address [address] [facility] [address] [place] [address] Phone Care Team Providers Care Inventory Planner Name Role Phone Giovanna Garcia NP Primary Care Provider [phone] Geronimo Beltran MD Unavailable [phone] Emely Barnes RN Unavailable [phone] Unknown, Unknown Primary Care Provider Hayley Couch MD Primary Care Provider Encounter Details Date Type Department Care Team (Late st Contact Info) Description 02/01/2021 Procedure Pass [facility], [address] [address] Social History Tobacco Use Types Packs/Day Years [...] 1:40 PM EST Office Visit [facility] [address] Efrain Melgar DO 22 [place] [address] [email or web address] documented as [...] documented as of this encounter Care Teams Inventory Planner Relationship Specialty Start Date End Date Giovanna Garcia NP [email or web address] PCP - General Family Medicine 11/15/17 08/22/23 Unknown, Unknown, PCP - General 08/23/23 03/07/24 Hayley Ni MD [facility] [place] [address] PCP - General Internal Medicine 03/08/24 Geronimo Beltran MD [address] [place] [address] [email or web address] Insurance Assigned Provider 09/19/20 06/17/23 Emely Barnes, RN [address] [place] [address] iCMP Hand Singer 07/27/21 08/10/21 documented as of this encounter Additional Source Comments The information contained in this document represents components of the legal health record. It is not the complete legal health record.[facility]
--- OUTSIDE RECORDS SUMMARY | 2025-02-20 18:00 | XMS_ITS | Encounter Summary ---
Author Organization [facility] Address [address] [facility] [address] [place] [address] Phone Care Team Providers Care Guideman Name Role Phone Giovanna Garcia NP Primary Care Provider [phone] Geronimo Beltran MD Unavailable [phone] Emely Barnes RN Unavailable [phone] Unknown, Unknown Primary Care Provider Hayley Couch MD Primary Care Provider Encounter Details Date Type Department Care Team (Late Contact Info) Description 03/20/2020 Procedure Pass [facility] 30 [place] [address] Social History Tobacco Use Types Packs/Day Years [...] [facility] [address] [place] [address] Efrain Melgar DO 22 [place] [address] [email or web address] documented as of this encounter Visit Diagnoses [...] documented as of this encounter Care Teams Guideman Relationship Specialty Start Date End Date Giovanna Garcia NP [email or web address] PCP - General Family Medicine 11/15/17 08/22/23 Unknown, Unknown, MD PCP - General 08/23/23 03/07/24 Hayley Ni MD [address] [place] [address] PCP - General Internal Medicine 03/08/24 Geronimo Beltran MD [address] [place] [address] [email or web address] Insurance Assigned Provider 09/19/20 06/17/23 Emely Barnes, RN [address] [place] [address] [email or web address] iCMP Facility Planner 07/27/21 08/10/21 documented as of this encounter Additional Source Comments The information contained in this document represents components of the legal health record. It is not the complete legal health record.[facility]
--- OUTSIDE RECORDS SUMMARY | 2025-02-20 18:00 | XMS_ITS | Encounter Summary ---
Author Organization [facility] Address [address] [facility] [address] [place] [address] Phone Care Team Providers Care Channel Layer Name Role Phone Giovanna Garcia NP Primary Care Provider [phone] Geronimo Beltran MD Unavailable [phone] Emely Barnes RN Unavailable [phone] Unknown, Unknown Primary Care Provider Hayley Couch MD Primary Care Provider Encounter Details Date Type Department Care Team (Late st Contact Info) Description 04/07/2020 Procedure Pass Non-Invasive Cardiology [address] [place] [address] Social History Tobacco Use Types Packs/Day Years [...] PM EST Office Visit [facility] [address] [place] [address] Efrain Melgar DO [address] [place] [address] [email or web address] documented as of this [...] documented as of this encounter Care Teams Channel Layer Relationship Specialty Start Date End Date Giovanna Garcia NP [email or web address] PCP - General Family Medicine 11/15/17 08/22/23 Unknown, Unknown, PCP - General 08/23/23 03/07/24 Hayley Ni MD [facility] [place] [address] PCP - General Internal Medicine 03/08/24 Geronimo Beltran MD [address] [place] [address] Insurance Assigned Provider 09/19/20 06/17/23 Emely Barnes, RN [address] [place] [address] [facility] 07/27/21 08/10/21 documented as of this encounter Additional Source Comments The information contained in this document represents components of the legal health record. It is not the complete legal health record.[facility]
--- OUTSIDE RECORDS SUMMARY | 2025-02-20 18:00 | XMS_ITS | Encounter Summary ---
Author Organization [facility] Address [address] [place] [address] Phone Care Team Providers Care Parlor Chaperone Name Role Phone Giovanna Garcia NP Primary Care Provider Geronimo Beltran MD Unavailable [phone] Unknown, Unknown Primary Care Provider Hayley Couch MD Primary Care Provider Encounter Details Date Type Department Care Team (Late st Contact Info) Description 11/02/2021 Procedure Pass Non-Invasive Cardiology [address] [place] [id number] Social History Tobacco Use Types Packs/Day Years [...] high school, GED, job training, learning the [place]ib[place]ian language, technical skills, or developing parenting skills)? [...] 1:40 PM EST Office Visit [facility] [address] [place] [address] Efrain Melgar DO 22 [place] [address] documented as of this encounter Visit Diagnoses Not on filedocumented in this encounter Additional Health Concerns Infection Onset Date Last Indicated Resolved Time CoV-Risk 03/29/2022 03/29/2022 04/09/2022 1:22 AM EDT Assessment Noted Time PHQ-2 Depression Total Score: 2 08/11/19 22 9:20 AM EST documented as of this encounter Care Teams Parlor Chaperone Relationship Specialty Start Date End Date Giovanna Garcia, DIRECTOR OF LOGISTICS PCP - General Family Medicine 11/15/17 08/22/23 Unknown, Unknown, MD PCP - General 08/23/23 03/07/24 Hayley Ni MD [facility] [place] [address] PCP - General Internal Medicine 03/08/24 Geronimo Beltran MD [address] [place] [address] [email or web address] Insurance Assigned Provider 09/19/20 06/17/23 documented as of this encounter Additional Source Comments The information contained in this document represents components of the legal health record. It is not the complete legal health record.[facility]
--- OUTSIDE RECORDS SUMMARY | 2025-02-20 18:00 | XMS_ITS | Encounter Summary ---
Author Organization [facility] Address [address] [place] [address] Phone Care Team Providers Care Executive Housekeeper Name Role Phone Giovanna Garcia NP Primary Care Provider [phone] Geronimo Beltran MD Unavailable [phone] Unknown, Unknown Primary Care Provider Hayley Couch MD Primary Care Provider Encounter Details Date Type Department Care Team (Late st Contact Info) Description 02/25/2022 Procedure Pass [facility] 30 [place] [address] Social History Tobacco Use Types Packs/Day Years [...] high school, GED, job training, learning the Thai language, technical skills, or developing parenting skills)? [...] 1:40 PM EST Office Visit [facility] [address] [place] [address] Efrain Melgar DO [address] [place] [address] documented as of this encounter Visit Diagnoses Not on filedocumented in this encounter Additional Health Concerns Infection Onset Date Last Indicated Resolved Time CoV-Risk 03/29/2022 03/29/2022 04/09/2022 1:22 AM EDT Assessment Noted Time PHQ-2 Depression Total Score: 2 08/11/19 9:20 AM EST documented as of this encounter Care Teams Executive Housekeeper Relationship Specialty Start Date End Date Giovanna Garcia, TUBE ROOM CASHIER PCP - General Family Medicine 11/15/17 08/22/23 Unknown, Unknown, MD PCP - General 08/23/23 03/07/24 Hayley Ni MD [address] [place] [address] [place] [address] PCP - General Internal Medicine 03/08/24 Geronimo Beltran MD [address] [place] [address] [email or web address] Insurance Assigned Provider 09/19/20 06/17/23 documented as of this encounter Additional Source Comments The information contained in this document represents components of the legal health record. It is not the complete legal health record.[facility]
--- OUTSIDE RECORDS SUMMARY | 2025-02-20 18:00 | XMS_ITS | Encounter Summary ---
Author Organization [facility] Address [address] [place] [address] Phone Care Team Providers Care Sharepoint Developer Name Role Phone Giovanna Garcia NP Primary Care Provider [phone] Geronimo Beltran MD Unavailable [phone] Emely Barnes RN Unavailable [phone] Unknown, Unknown Primary Care Provider Hayley Couch MD Primary Care Provider Reason for Referral * MRI/CAT Scan - Closed Specialty Diagnoses / Procedures Referred By Braulio sheehan Referred To Contact Procedures CT Neck Outside (No Interpretation) System, Provider Not In, PhD [address] [address] Referral ID Status Reason Start Date Expiration Date Visits Re quested Visits Authorized [id number] Closed 10/04/2018 10/04/2019 1 1 Encounter Details Date Type Department Care Team (Late st Contact Info) Description 10/04/2018 Ancillary Orders [facility],Outside Imaging 30 [place], [place] [id number] System, Provider Not In, PhD [facility] [address] [address] Social History Tobacco Use Types Packs/Day Years [...] 1:40 PM EST Office Visit [facility] [address] [place] [address] Efrain Melgar DO [address] [place] [address] [email or web address] documented as of this encounter Results * [...] documented as of this encounter Care Teams Sharepoint Developer Relationship Specialty Start Date End Date Giovanna Garcia NP [email or web address] PCP - General Family Medicine 11/15/17 08/22/23 Unknown, Unknown, MD PCP - General 08/23/23 03/07/24 Hayley Ni MD [address] [place] [address] [place] [address] PCP - General Internal Medicine 03/08/24 Geronimo Beltran MD [address] [place] [address] [email or web address] Insurance Assigned Provider 09/19/20 06/17/23 Emely Barnse, RN [address] [place] [address] [email or web address] iCMP Junior Account Executive 07/27/21 08/10/21 documented as of this encounter Additional Source Comments The information contained in this document represents components of the legal health record. It is not the complete legal health record.[facility]
--- OUTSIDE RECORDS SUMMARY | 2025-02-20 18:00 | XMS_ITS | Encounter Summary ---
Author Organization [facility] Address [address] [place] [address] Phone Care Team Providers Care Inspector Elevators Name Role Phone Giovanna Garcia NP Primary Care Provider [phone] Geronimo Beltran MD Unavailable [phone] Emely Barnes RN Unavailable [phone] Unknown, Unknown Primary Care Provider Hayley Couch MD Primary Care Provider Encounter Details Date Type Department Care Team (Late st Contact Info) Description 06/02/2020 Procedure Pass [facility], Ct Scan - [address] [address] Social History Tobacco Use Types Packs/Day Years [...] 3:39 PM EST Justino España RN * [place] Suicide Severity Rating Scale (Screener/Recent Self-Report) Question [...] PM EST Office Visit [facility] [address] [place] [address] Efrain Melgar DO [address] [place] [address] [email or web address] documented as of this encounter Visit Diagnoses [...] documented as of this encounter Care Teams Inspector Elevators Relationship Specialty Start Date End Date Giovanna Garcia CARRIAGE SETTER [email or web address] PCP - General Family Medicine 11/15/17 08/22/23 Unknown, Unknown, MD PCP - General 08/23/23 03/07/24 Hayley Ni MD [address] [place] [address] [place] [address] PCP - General Internal Medicine 03/08/24 Geronimo Beltran MD [address] [place] [address] [email or web address] Insurance Assigned Provider 09/19/20 06/17/23 Emely Barnes, RN [address] [place] [address] [email or web address] iCMP Group Fitness Department Head 07/27/21 08/10/21 documented as of this encounter Additional Source Comments The information contained in this document represents components of the legal health record. It is not the complete legal health record.[facility]
--- OUTSIDE RECORDS SUMMARY | 2025-02-20 18:00 | XMS_ITS | Encounter Summary ---
Author Organization [facility] Address [address] [facility] [address] [place] [address] Phone Care Team Providers Care Body And Frame Technician Name Role Phone Giovanna Garcia NP Primary Care Provider [phone] Geronimo Beltran MD Unavailable [phone] Emely Barnes RN Unavailable [phone] Unknown, Unknown Primary Care Provider Hayley Couch MD Primary Care Provider Encounter Details Date Type Department Care Team (Late st Contact Info) Description 09/10/2018 Procedure Pass [facility], [address] [address] Social History Tobacco Use Types Packs/Day Years [...] 1:40 PM EST Office Visit [facility] [address] [place] [address] Efrain Melgar DO [address] [place] [address] [email or web address] documented as of this encounter Visit [...] documented as of this encounter Care Teams Body And Frame Technician Relationship Specialty Start Date End Date Giovanna Garcia AUTOMOTIVE REFINISH TECHNICIAN [email or web address] PCP - General Family Medicine 11/15/17 08/22/23 Unknown, Daxa, MD PCP - General 08/23/23 03/07/24 Hayley Ni MD [facility] [place] [address] PCP - General Internal Medicine 03/08/24 Geronimo Beltran MD [address] [place] [address] [email or web address] Insurance Assigned Provider 09/19/20 06/17/23 Emely Barnes, RN [address] [place] [address] [email or web address] iCMP Assessor 07/27/21 08/10/21 documented as of this encounter Additional Source Comments The information contained in this document represents components of the legal health record. It is not the complete legal health record.[facility]
--- OUTSIDE RECORDS SUMMARY | 2025-02-20 18:00 | XMS_ITS | Encounter Summary ---
Author Organization [facility] Address [address] [facility] [address] [place] [address] Phone Care Team Providers Care Paper Cone Machine Operator Name Role Phone Giovanna Garcia NP Primary Care Provider [phone] Geronimo Beltran MD Unavailable [phone] Emely Barnes RN Unavailable [phone] Unknown, Unknown Primary Care Provider Hayley Couch MD Primary Care Provider Encounter Details Date Type Department Care Team (Late st Contact Info) Description 03/17/2020 Procedure Pass [facility], [address] [address] Social History Tobacco Use Types Packs/Day Years [...] 1:40 PM EST Office Visit [facility] [place] [address] Efrain Melgar DO 22 [place] [address] [email or web address] documented as of this encounter Visit Diagnoses [...] as of this encounter Care Teams Paper Cone Machine Operator Relationship Specialty Start Date End Date Giovanna Garcia NP [email or web address] PCP - General Family Medicine 11/15/17 08/22/23 Unknown, Unknown, MD PCP - General 08/23/23 03/07/24 Hayley Ni MD [facility] [place] [address] PCP - General Internal Medicine 03/08/24 Geronimo Beltran MD [address] [place] [address] [email or web address] Insurance Assigned Provider 09/19/20 06/17/23 Emely Barnes, ABE [address] [place] [address] [email or web address] iCMP Furniture Builder 07/27/21 08/10/21 documented as of this encounter Additional Source Comments The information contained in this document represents components of the legal health record. It is not the complete legal health record.[facility]
--- OUTSIDE RECORDS SUMMARY | 2025-02-20 18:00 | XMS_ITS | Encounter Summary ---
Author Organization [facility] Address [address] [place] [address] Phone Care Team Providers Care Pipeline Operator Name Role Phone Giovanna Garcia NIGHT BAKER Primary Care Provider [phone] Geronimo Beltran MD Unavailable [phone] Emely Barnes RN Unavailable [phone] Unknown, Unknown Primary Care Provider Hayley Couch MD Primary Care Provider Encounter Details Date Type Department Care Team (Latest Contact Info) Description 03/18/2020 Prep for Surgery [facility] [address] [place] [address] Dr [address] Floor, [address] [place] [address] Radu Somers MD 22 [place] [address] [email or web address] Syncope and collapse (Primary Dx) Social History [...] 1:40 PM EST Office Visit [facility] [address] [place] [address] [place] [address] Efrain Melgar DO 22 [place] [address] [email or web address] documented as of this encounter Visit Diagnoses [...] documented as of this encounter Care Teams Pipeline Operator Relationship Specialty Start Date End Date Giovanna Garcia NP [email or web address] PCP - General Family Medicine 11/15/17 08/22/23 Unknown, Daxa, PCP - General 08/23/23 03/07/24 Hayley Ni MD [facility] [place] [address] PCP - General Internal Medicine 03/08/24 Geronimo Beltran MD [address] [place] [address] [email or web address] Insurance Assigned Provider 09/19/20 06/17/23 Emely Barnes, ABE [address] [place] [address] [email or web address] iCMP Race And Sports Book Writer 07/27/21 08/10/21 documented as of this encounter Additional Source Comments The information contained in this document represents components of the legal health record. It is not the complete legal health record.[facility]
--- OUTSIDE RECORDS SUMMARY | 2025-02-20 18:00 | XMS_ITS | Encounter Summary ---
Author Organization [facility] Address [address] [facility] [address] [place] [address] Phone Care Team Providers Care Forestry Extension Specialist Name Role Phone Giovanna Garcia NP Primary Care Provider [phone] Geronimo Beltran MD Unavailable [phone] Emely Barnes RN Unavailable [phone] Unknown, Unknown Primary Care Provider Hayley oCuch MD Primary Care Provider Encounter Details Date Type Department Care Team (Late Contact Info) Description 03/20/2020 Procedure Pass [facility] 30 [place] [address] Social History Tobacco Use Types Packs/Day Years [...] [facility] [address] [place] [address] Efrain Melgar DO 22 [place] [address] [email or web address] documented as of this encounter Visit Diagnoses [...] documented as of this encounter Care Teams Forestry Extension Specialist Relationship Specialty Start Date End Date Giovanna Garcia NP [email or web address] PCP - General Family Medicine 11/15/17 08/22/23 Unknown, Unknown, MD PCP - General 08/23/23 03/07/24 Hayley Ni MD [address] [facility] [place] [address] PCP - General Internal Medicine 03/08/24 Geronimo Beltran MD [address] [place] [address] [email or web address] Insurance Assigned Provider 09/19/20 06/17/23 Emely Barnes, RN [address] [place] [address] [email or web address] iCMP Auto Damage Trainee 07/27/21 08/10/21 documented as of this encounter Additional Source Comments The information contained in this document represents components of the legal health record. It is not the complete legal health record.[facility]
--- OUTSIDE RECORDS SUMMARY | 2025-02-20 18:00 | XMS_ITS | Encounter Summary ---
Author Organization [facility] Address [address] [place] [address] Phone Care Team Providers Care Process Improvement Consultant Name Role Phone Giovanna Garcia NP Primary Care Provider [phone] Geronimo Beltran MD Unavailable [phone] Unknown, Unknown Primary Care Provider Hayley Couch MD Primary Care Provider Encounter Details Date Type Department Care Team (Late st Contact Info) Description 02/24/2022 Procedure Pass [facility] [address] [place] [address] Social History Tobacco Use Types Packs/Day Years [...] high school, GED, job training, learning the Bangladeshi language, technical skills, or developing parenting skills)? [...] PM EST Office Visit [facility] [address] [place] [address] Efrain Melgar DO [address] [place] [address] documented as of this encounter Visit Diagnoses Not on filedocumented in this encounter Additional Health Concerns Infection Onset Date Last Indicated Resolved Time CoV-Risk 03/29/2022 03/29/2022 04/09/2022 1:22 AM EDT Assessment Noted Time PHQ-2 Depression Total Score: 2 08/11/19 9:20 AM EST documented as of this encounter Care Teams Process Improvement Consultant Relationship Specialty Start Date End Date Giovanna Garcia, GUNNER MATE PCP - General Family Medicine 11/15/17 08/22/23 Unknown, Unknown, MD PCP - General 08/23/23 03/07/24 Hayley Ni MD [address] [place] [address] [place] [address] PCP - General Internal Medicine 03/08/24 Geronimo Beltran MD [address] [place] [address] [email or web address] Insurance Assigned Provider 09/19/20 06/17/23 documented as of this encounter Additional Source Comments The information contained in this document represents components of the legal health record. It is not the complete legal health record.[facility]
--- OUTSIDE RECORDS SUMMARY | 2025-02-20 18:01 | XMS_ITS | Encounter Summary ---
Author Organization [facility] Address [address] [employer] [facility] [address] [place] [address] Phone Care Team Providers Care Shoe Turner Name Role Phone Giovanna Garcia FORKLIFT SUPERVISOR Primary Care Provider Geronimo Beltran MD Unavailable [phone] Emely Barnes RN Unavailable [phone] Unknown, Unknown Primary Care Provider Hayley Couch MD Primary Care Provider Encounter Details Date Type Department Care Team (Late st Contact Info) Description 02/16/2021 Ancillary Orders Non-Invasive Cardiology [address] [place] [address] Patrice Quintero MD 30 [place] [address] [email or web address] Syncope and collapse Social History Tobacco [...] 1:40 PM EST Office Visit [facility] [address] [place] [address] RamónEfrain, 22 [place] [address] [email or web address] documented as of this encounter Results * DEVICE CHECK: ILR IN-HOME INTERROGATION (02/16/2021 9:45 AM EDT) Narrative Patrice Quintero MD - 02/21/2021 2:58 PM EDT Remote interrogation of implantable loop recorder. 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: [employer] Symptoms: 0 Pauses: 0 Bradycardia: 0 Tachycardia: [...] documented as of this encounter Care Teams Shoe Turner Relationship Specialty Start Date End Date Giovanna Garcia NP [email or web address] PCP - General Family Medicine 11/15/17 08/22/23 Unknown, Daxa, PCP - General 08/23/23 03/07/24 Hayley Ni MD [address] [place] [address] [place] [address] PCP - General Internal Medicine 03/08/24 Geronimo Beltran MD [address] [place] [address] [email or web address] Insurance Assigned Provider 09/19/20 06/17/23 Emely Barnes, RN [address] [place] [address] [email or web address] iCMP Grill Attendant 07/27/21 08/10/21 documented as of this encounter Additional Source Comments The information contained in this document represents components of the legal health record. It is not the complete legal health record.[facility]
--- OUTSIDE RECORDS SUMMARY | 2025-02-20 18:01 | XMS_ITS | Encounter Summary ---
Author Organization [facility] Address [address] [facility] [address] [place] [address] Phone Care Team Providers Care Structural Steel Equipment Erector Name Role Phone Giovanna Garcia NP Primary Care Provider [phone] Geronimo Beltran MD Unavailable [phone] Emely Barnes RN Unavailable [phone] Unknown, Unknown Primary Care Provider Hayley Couch MD Primary Care Provider Encounter Details Date Type Department Care Team (Late Contact Info) Description 09/24/2020 Procedure Pass [facility] 30 [place] [address] Social History Tobacco Use Types Packs/Day Years [...] PM EST Office Visit [facility] [address] [place] [address] [place] [address] [email or web address] documented as of [...] documented as of this encounter Care Teams Structural Steel Equipment Erector Relationship Specialty Start Date End Date Giovanna Garcia NP [email or web address] PCP - General Family Medicine 11/15/17 08/22/23 Unknown, Daxa, PCP - General 08/23/23 03/07/24 Hayley Ni MD [facility] [place] [address] PCP - General Internal Medicine 03/08/24 Geronimo Beltran MD [address] [place] [address] [email or web address] Insurance Assigned Provider 09/19/20 06/17/23 Emely Barnes, ABE [address] [place] [address] iCMP Vice President Corporate Communications 07/27/21 08/10/21 documented as of this encounter Additional Source Comments The information contained in this document represents components of the legal health record. It is not the complete legal health record.[facility]
--- OUTSIDE RECORDS SUMMARY | 2025-02-20 18:01 | XMS_ITS | Encounter Summary ---
Author Organization [facility] Address [address] [facility] [address] [place] [address] Phone Care Team Providers Care Optical Engineering Manager Name Role Phone Giovanna Garcia NP Primary Care Provider [phone] Geronimo Beltran MD Unavailable [phone] Emely Barnes RN Unavailable [phone] Unknown, Unknown Primary Care Provider Hayley Couch MD Primary Care Provider Encounter Details Date Type Department Care Team (Late Contact Info) Description 03/20/2019 Ancillary Orders [facility] [address] [place], [place] [id number] System, Provider Not In, [place] [address] Social History Tobacco Use Types Packs/Day Years [...] 1:40 PM EST Office Visit [facility] [address] [place] [address] [place] [address] Efrain Melgar DO 22 [place] [address] [email or web address] documented as of this encounter Results * [...] documented as of this encounter Care Teams Optical Engineering Manager Relationship Specialty Start Date End Date Giovanna Garcia NP [email or web address] PCP - General Family Medicine 11/15/17 08/22/23 Unknown, Unknown, MD PCP - General 08/23/23 03/07/24 Hayley Ni MD [address] [place] [address] [place] [address] PCP - General Internal Medicine 03/08/24 Geronimo Beltran MD [address] [place] [address] [email or web address] Insurance Assigned Provider 09/19/20 06/17/23 Emely Barnes, RN [address] [place] [address] [email or web address] iCMP Box Brander 07/27/21 08/10/21 documented as of this encounter Additional Source Comments The information contained in this document represents components of the legal health record. It is not the complete legal health record.[facility]
--- OUTSIDE RECORDS SUMMARY | 2025-02-20 18:01 | XMS_ITS | Encounter Summary ---
Author Organization [facility] Address [address] [facility] [address] [place] [address] Phone Care Team Providers Care First Responder Name Role Phone Giovanna Garcia NP Primary Care Provider [phone] Geronimo Beltran MD Unavailable [phone] Emely Barnes RN Unavailable [phone] Unknown, Unknown Primary Care Provider Hayley Couch MD Primary Care Provider Encounter Details Date Type Department Care Team (Late st Contact Info) Description 03/13/2020 Procedure Pass [facility] Interventional [facility] 30 [place] [address] Social History Tobacco Use Types Packs/Day Years [...] 1:40 PM EST Office Visit [facility] [place] [address] Efrain Melgar DO 22 [place] [address] [email or web address] documented as of this encounter Visit Diagnoses [...] documented as of this encounter Care Teams First Responder Relationship Specialty Start Date End Date Giovanna Garcia NP [email or web address] PCP - General Family Medicine 11/15/17 08/22/23 Unknown, Unknown, PCP - General 08/23/23 03/07/24 Hayley Ni MD [address] [facility] [place] [address] PCP - General Internal Medicine 03/08/24 Geronimo Beltran MD [address] [place] [address] [email or web address] Insurance Assigned Provider 09/19/20 06/17/23 Emely Barnes, ABE [address] [place] [address] [email or web address] iCMP Shop Fitter 07/27/21 08/10/21 documented as of this encounter Additional Source Comments The information contained in this document represents components of the legal health record. It is not the complete legal health record.[facility]
--- OUTSIDE RECORDS SUMMARY | 2025-02-20 18:01 | XMS_ITS | Encounter Summary ---
Author Organization [facility] Address [address] [place] [address] Phone Care Team Providers Care Shopper Name Role Phone Giovanna Garcia NP Primary Care Provider [phone] Geronimo Beltran MD Unavailable [phone] Emely Barnes RN Unavailable [phone] Unknown, Unknown Primary Care Provider Hayley Couch MD Primary Care Provider Encounter Details Date Type Department Care Team (Late st Contact Info) Description 08/10/2021 Procedure Pass [address] [place] [address] Social History Tobacco Use Types Packs/Day Years [...] high school, GED, job training, learning the Cameroonian language, technical skills, or developing parenting skills)? [...] 1:40 PM EST Office Visit [facility] [address] [place] [address] Efrain Melgar DO [address] [place] [address] documented as of this encounter Visit Diagnoses Not on filedocumented in this encounter Additional Health Concerns Infection Onset Date Last Indicated Resolved Time CoV-Risk 03/29/2022 03/29/2022 04/09/2022 1:22 AM EDT Assessment Noted Time PHQ-2 Depression Total Score: 2 08/11/19 22 9:20 AM EST documented as of this encounter Care Teams Shopper Relationship Specialty Start Date End Date Giovanna Garcia, JTAC [email or web address] PCP - General Family Medicine 11/15/17 08/22/23 Unknown, Daxa, MD PCP - General 08/23/23 03/07/24 Hayley Ni MD [address] [place] [address] [place] [address] PCP - General Internal Medicine 03/08/24 Geronimo Beltran MD [address] [place] [address] [email or web address] Insurance Assigned Provider 09/19/20 06/17/23 Emely Barnes, RN [address] [place] [address] [email or web address] iCMP Donor Specialist 07/27/21 08/10/21 documented as of this encounter Additional Source Comments The information contained in this document represents components of the legal health record. It is not the complete legal health record.[facility]
--- OUTSIDE RECORDS SUMMARY | 2025-02-20 18:01 | XMS_ITS | Encounter Summary ---
Author Organization [facility] Address [address] [place] [address] Phone Care Team Providers Care Scraper Loader Operator Name Role Phone Giovanna Garcia NP Primary Care Provider [phone] Geronimo Beltran MD Unavailable [phone] Emely Barnes RN Unavailable [phone] Unknown, Unknown Primary Care Provider Hayley Couch MD Primary Care Provider Encounter Details Date Type Department Care Team (Late st Contact Info) Description 08/10/2021 Procedure Pass [address] [place] [address] Social History Tobacco Use Types Packs/Day Years [...] high school, GED, job training, learning the Cymraes language, technical skills, or developing parenting skills)? [...] 1:40 PM EST Office Visit [facility] [address] [place] [address] Efrain Melgar DO [address] [place] [address] documented as of this encounter Visit Diagnoses Not on filedocumented in this encounter Additional Health Concerns Infection Onset Date Last Indicated Resolved Time CoV-Risk 03/29/2022 03/29/2022 04/09/2022 1:22 AM EDT Assessment Noted Time PHQ-2 Depression Total Score: 2 08/11/19 22 9:20 AM EST documented as of this encounter Care Teams Scraper Loader Operator Relationship Specialty Start Date End Date Giovanna Garcia, MECHANIC GENERAL OPERATIONAL TEST [email or web address] PCP - General Family Medicine 11/15/17 08/22/23 Unknown, Daxa, MD PCP - General 08/23/23 03/07/24 Hayley Ni MD [address] [place] [address] [place] [address] PCP - General Internal Medicine 03/08/24 Geronimo Beltran MD [address] [place] [address] [email or web address] Insurance Assigned Provider 09/19/20 06/17/23 Emely Barnes, RN [address] [place] [address] [email or web address] iCMP Fork Lift Technician 07/27/21 08/10/21 documented as of this encounter Additional Source Comments The information contained in this document represents components of the legal health record. It is not the complete legal health record.[facility]
--- OUTSIDE RECORDS SUMMARY | 2025-02-20 18:01 | XMS_ITS | Encounter Summary ---
Author Organization [facility] Address [address] [facility] [address] [place] [address] Phone Care Team Providers Care Strategic Development Manager Name Role Phone Hayley Ni MD Primary Care Provider Reason for Visit * Reason Comments Medication Refill Encounter Details Date Type Department Care Team (Late st Contact Info) Description 12/20/2024 Refill [facility] [address] [place] [address] Efrain Melgar, DO 22 [place] [address] [email or web address] Medication Refill Social History Tobacco Use Types [...] 1:40 PM EST Office Visit [facility] [address] [place] [address] [place] [address] Efrain Melgar DO [address] [place] [address] [email or web address] documented as of this encounter Visit Diagnoses Diagnosis Vitamin D deficiency documented in this encounter Additional Health Concerns Assessment Noted Time PHQ-2 Depression Total Score: 2 08/11/19 9:20 AM EST documented as of this encounter Care Teams Strategic Development Manager Relationship Specialty Start Date End Date Hayley Ni MD [address] [place] [address] [place] [address] PCP - General Internal Medicine 03/08/24 documented as of this encounter Additional Source Comments The information contained in this document represents components of the legal health record. It is not the complete legal health record.[facility]
--- OUTSIDE RECORDS SUMMARY | 2025-02-20 18:01 | XMS_ITS | Encounter Summary ---
Author Organization [facility] Address [address] [place] [address] Phone Care Team Providers Care Dirt Bike Racer Name Role Phone Giovanna Garcia NP Primary Care Provider [phone] Geronimo Beltran MD Unavailable [phone] Unknown, Unknown Primary Care Provider Hayley Couch MD Primary Care Provider Encounter Details Date Type Department Care Team (Latest Contact Info) Description 11/02/2021 Ancillary Orders Non-Invasive Cardiology [address] [place] [address] Patrice Quintero MD 30 [place] [address] [email or web address] Syncope and collapse; Paroxysmal atrial fibrillation Social [...] high school, GED, job training, learning the South Sudanese language, technical skills, or developing parenting skills)? [...] 1:40 PM EST Office Visit [facility] [address] [place] [address] Efrain Melgar DO 22 [place] [address] documented as of this encounter Results * DEVICE CHECK: ILR IN-HOME INTERROGATION (02/02/2022 12:23 PM EDT) Narrative Radu Denise DO - 02/08/2022 9:50 AM EDT Remote interrogation of implantable loop recorder. Reason for implant: Syncope Collar Padder Blindstitch: [employer] Symptoms: 0 Pauses: 0 Bradycardia: 0 [...] documented as of this encounter Care Teams Dirt Bike Racer Relationship Specialty Start Date End Date Giovanna Garcia NP PCP - General Family Medicine 11/15/17 08/22/23 Unknown, Unknown, MD PCP - General 08/23/23 03/07/24 Hayley Ni MD [address] [place] [address] [place] [address] PCP - General Internal Medicine 03/08/24 Geronimo Beltran MD [address] [place] [address] [email or web address] Insurance Assigned Provider 09/19/20 06/17/23 documented as of this encounter Additional Source Comments The information contained in this document represents components of the legal health record. It is not the complete legal health record.[facility]
--- OUTSIDE RECORDS SUMMARY | 2025-02-20 18:01 | XMS_ITS | Encounter Summary ---
Author Organization [facility] Address [address] [facility] [address] [place] [address] Phone Care Team Providers Care Incinerator Attendant Name Role Phone Giovanna Garcia THROAT CUTTER Primary Care Provider Geronimo Beltran MD Unavailable [phone] Emely Barnes RN Unavailable [phone] Unknown, Unknown Primary Care Provider Hayley Couch MD Primary Care Provider Encounter Details Date Type Department Care Team (Late st Contact Info) Description 11/16/2020 Ancillary Orders Non-Invasive Cardiology [address] [place] [address] Patrice Quintero MD 30 [place] [address] [email or web address] Syncope and collapse Social History Tobacco Use [...] PM EST Office Visit [facility] [address] [place] [address] RamónEfrain, DO 22 [place] [address] [email or web address] documented as of this encounter Results * (ABNORMAL) DEVICE CHECK: ILR IN-HOME INTERROGATION (11/16/2020 10:16 AM EDT) Narrative Patrice Quintero MD - 11/23/2020 1:10 PM EDT Remote interrogation of implantable loop recorder. Reason for implant: Syncope Worship Leader: [employer] Symptoms: 0 Pauses: 0 Bradycardia: 0 Tachycardia: [...] documented as of this encounter Care Teams Incinerator Attendant Relationship Specialty Start Date End Date Giovanna Garcia NP [email or web address] PCP - General Family Medicine 11/15/17 08/22/23 Unknown, Unknown, MD PCP - General 08/23/23 03/07/24 Hayley Ni MD [facility] [place] [address] PCP - General Internal Medicine 03/08/24 Geronimo Beltran MD [address] [place] [address] [email or web address] Insurance Assigned Provider 09/19/20 06/17/23 Emely Barnes, RN [address] [place] [address] [email or web address] iCMP Adoption Social Worker 07/27/21 08/10/21 documented as of this encounter Additional Source Comments The information contained in this document represents components of the legal health record. It is not the complete legal health record.[facility]
--- OUTSIDE RECORDS SUMMARY | 2025-02-20 18:01 | XMS_ITS | Encounter Summary ---
Author Organization [facility] Address [address] [place] [address] Phone Care Team Providers Care Airline Lounge Receptionist Name Role Phone Giovanna Garcia NP Primary Care Provider [phone] Geronimo Beltran MD Unavailable [phone] Unknown, Unknown Primary Care Provider Hayley Couch MD Primary Care Provider Encounter Details Date Type Department Care Team (Late st Contact Info) Description 11/10/2021 Procedure Pass [facility], Ct Scan - [address] [id number] Social History Tobacco Use Types Packs/Day Years [...] high school, GED, job training, learning the Somali language, technical skills, or developing parenting skills)? [...] 1:40 PM EST Office Visit [facility] [address] [place] [address] Efrain Melgar DO [address] [place] [address] documented as of this encounter Visit Diagnoses Not on filedocumented in this encounter Additional Health Concerns Infection Onset Date Last Indicated Resolved Time CoV-Risk 03/29/2022 03/29/2022 04/09/2022 1:22 AM EDT Assessment Noted Time PHQ-2 Depression Total Score: 2 08/11/19 9:20 AM EST documented as of this encounter Care Teams Airline Lounge Receptionist Relationship Specialty Start Date End Date Giovanna Garcia NP [email or web address] PCP - General Family Medicine 11/15/17 08/22/23 Unknown, Unknown, PCP - General 08/23/23 03/07/24 Hayley Ni MD [address] [place] [address] [place] [address] PCP - General Internal Medicine 03/08/24 Geronimo Beltran MD [address] [place] [address] [email or web address] Insurance Assigned Provider 09/19/20 06/17/23 documented as of this encounter Additional Source Comments The information contained in this document represents components of the legal health record. It is not the complete legal health record.[facility]
--- OUTSIDE RECORDS SUMMARY | 2025-02-20 18:01 | XMS_ITS | Encounter Summary ---
Author Organization [facility] Address [address] [place] [address] Phone Care Team Providers Care Heavy Equipment Rental Manager Name Role Phone Giovanna Garcia NP Primary Care Provider [phone] Geronimo Beltran MD Unavailable [phone] Unknown, Unknown Primary Care Provider Hayley Couch MD Primary Care Provider Encounter Details Date Type Department Care Team (Late st Contact Info) Description 11/02/2021 Ancillary Orders [facility] [address] Floor, [address] [place] [address] Patrice Quintero MD [address] [place] [phone] [email or web address] Social History Tobacco Use Types Packs/Day Years [...] high school, GED, job training, learning the Hungarian language, technical skills, or developing parenting skills)? [...] PM EST Office Visit [facility] [address] [place] [address] Efrain Melgar DO 22 [place] [address] documented as of this encounter Visit Diagnoses Not on filedocumented in this encounter Additional Health Concerns Infection Onset Date Last Indicated Resolved Time CoV-Risk 03/29/2022 03/29/2022 04/09/2022 1:22 AM EDT Assessment Noted Time PHQ-2 Depression Total Score: 2 08/11/19 22 9:20 AM EST documented as of this encounter Care Teams Heavy Equipment Rental Manager Relationship Specialty Start Date End Date Giovanna Garcia NP [email or web address] PCP - General Family Medicine 11/15/17 08/22/23 Unknown, Unknown, MD PCP - General 08/23/23 03/07/24 Hayley Ni MD [facility] [place] [address] PCP - General Internal Medicine 03/08/24 Geronimo Beltran MD [address] [place] [address] [email or web address] Insurance Assigned Provider 09/19/20 06/17/23 documented as of this encounter Additional Source Comments The information contained in this document represents components of the legal health record. It is not the complete legal health record.[facility]
--- OUTSIDE RECORDS SUMMARY | 2025-02-20 18:01 | XMS_ITS | Encounter Summary ---
Author Organization [facility] Address [address] [place] [address] Phone Care Team Providers Care Strategy Execution Consultant Name Role Phone Giovanna Garcia BINDING PRINTER Primary Care Provider [phone] Geronimo Beltran MD Unavailable [phone] Emely Barnes RN Unavailable [phone] Unknown, Unknown Primary Care Provider Hayley Couch MD Primary Care Provider Encounter Details Date Type Department Care Team (Late st Contact Info) Description 02/16/2021 Ancillary Orders [facility] [address] [facility] 3rd Floor, [address] [place] [address] Patrice Quintero MD [address] [place] [phone] [email or web address] Social History Tobacco Use Types Packs/Day Years [...] PM EST Office Visit [facility] [address] [place] [address] [place] [address] [email or web address] documented [...] documented as of this encounter Care Teams Strategy Execution Consultant Relationship Specialty Start Date End Date Giovanna Garcia NP PCP - General Family Medicine 11/15/17 08/22/23 Unknown, Unknown, MD PCP - General 08/23/23 03/07/24 Hayley Ni MD [facility] [address] [place] PCP - General Internal Medicine 03/08/24 Geronimo Beltran MD [address] [place] [address] [email or web address] Insurance Assigned Provider 09/19/20 06/17/23 Emely Barnes, RN [address] [place] [address] [email or web address] iCMP Pr Intern 07/27/21 08/10/21 documented as of this encounter Additional Source Comments The information contained in this document represents components of the legal health record. It is not the complete legal health record.[facility]
--- OUTSIDE RECORDS SUMMARY | 2025-02-20 18:01 | XMS_ITS | Encounter Summary ---
Author Organization [facility] Address [address] [place] [address] Phone Care Team Providers Care Folder Stitcher Operator Name Role Phone Giovanna Garcia MARINE SUPERINTENDENT Primary Care Provider [phone] Geronimo Beltran MD Unavailable [phone] Emely Barnes RN Unavailable [phone] Unknown, Unknown Primary Care Provider Hayley Couch MD Primary Care Provider Encounter Details Date Type Department Care Team (Late st Contact Info) Description 11/16/2020 Ancillary Orders [facility] [address] [facility] 3rd Floor, [address] [place] [address] Patrice Quintero MD [address] [place] [phone] [email or web address] Social History Tobacco Use Types Packs/Day Years [...] PM EST Office Visit [facility] [address] [place] [address] [place] [address] [email or web address] documented as of [...] documented as of this encounter Care Teams Folder Stitcher Operator Relationship Specialty Start Date End Date Giovanna Garcia NP PCP - General Family Medicine 11/15/17 08/22/23 Unknown, Unknown, MD PCP - General 08/23/23 03/07/24 Hayley Ni MD [facility] [address] [place] PCP - General Internal Medicine 03/08/24 Geronimo Beltran MD [address] [place] [address] [email or web address] Insurance Assigned Provider 09/19/20 06/17/23 Emely Barnes, RN [address] [place] [address] [email or web address] iCMP Patient Support Associate 07/27/21 08/10/21 documented as of this encounter Additional Source Comments The information contained in this document represents components of the legal health record. It is not the complete legal health record.[facility]
--- OUTSIDE RECORDS SUMMARY | 2025-02-20 18:01 | XMS_ITS | Encounter Summary ---
Author Organization [facility] Address [address] [facility] [address] [place] [address] Phone Care Team Providers Care Non Destructive Evaluation Technician Name Role Phone Giovanna Garcia NP Primary Care Provider [phone] Geronimo Beltran MD Unavailable [phone] Emely Barnes RN Unavailable [phone] Unknown, Unknown Primary Care Provider Hayley Couch MD Primary Care Provider Encounter Details Date Type Department Care Team (Late st Contact Info) Description 09/30/2020 Procedure Pass [facility], Ct Scan - [address] [address] Social History Tobacco Use Types Packs/Day Years [...] 1:40 PM EST Office Visit [facility] [place] [address] [place] [address] [email or web address] documented as of [...] documented as of this encounter Care Teams Non Destructive Evaluation Technician Relationship Specialty Start Date End Date Giovanna Garcia NP [email or web address] PCP - General Family Medicine 11/15/17 08/22/23 Unknown, Unknown, PCP - General 08/23/23 03/07/24 Hayley Ni MD [facility] [place] [address] PCP - General Internal Medicine 03/08/24 Geronimo Beltran MD [address] [place] [address] [email or web address] Insurance Assigned Provider 09/19/20 06/17/23 Emely Barnes, RN [address] [place] [address] iCMP Coffee Grinder 07/27/21 08/10/21 documented as of this encounter Additional Source Comments The information contained in this document represents components of the legal health record. It is not the complete legal health record.[facility]
--- OUTSIDE RECORDS SUMMARY | 2025-02-20 18:01 | XMS_ITS | Encounter Summary ---
Author Organization [facility] Address [address] [facility] [address] [place] [address] Phone Care Team Providers Care Turn Operator Name Role Phone Giovanna Garcia NP Primary Care Provider [phone] Geronimo Beltran MD Unavailable [phone] Emely Barnes RN Unavailable [phone] Unknown, Unknown Primary Care Provider Hayley Couch MD Primary Care Provider Reason for Referral * MRI/CAT Scan - Closed Specialty Diagnoses / Procedures Referred By Braulio sheehan Referred To Contact Radiology Diagnoses Memory loss Hx of cancer of lung Procedures MRI Brain Efrain [place] MD Phone: tel: fax: [email or web address] Referral ID Status Reason Start Date Expiration Date Visits Re quested Visits Authorized [id number] Closed 02/01/2021 02/01/2022 1 1 Encounter Details Date Type Department Care Team (Latest Contact Info) Description 02/01/2021 Transcribe Orders Virtual Department [address] [place] [address] Efrain [place] MD [address] [place] [address], [address] [place], [place] [phone] [email or web address] Memory loss (Primary Dx); Hx [...] 1:40 PM EST Office Visit [facility] [address] [place] [address] Efrain Melgar DO [address] [place] [address] documented as of this encounter Results * [...] documented as of this encounter Care Teams Turn Operator Relationship Specialty Start Date End Date Giovanna Garcia NP [email or web address] PCP - General Family Medicine 11/15/17 08/22/23 Unknown, Unknown, MD PCP - General 08/23/23 03/07/24 Hayley Ni MD [facility] [place] [address] PCP - General Internal Medicine 03/08/24 Geronimo Beltran MD [address] [place] [place] [address] [email or web address] Insurance Assigned Provider 09/19/20 06/17/23 Emely Barnes, RN [address] [place] [address] [email or web address] iCMP Surveillance Systems Engineer 07/27/21 08/10/21 documented as of this encounter Additional Source Comments The information contained in this document represents components of the legal health record. It is not the complete legal health record.[facility]
--- OUTSIDE RECORDS SUMMARY | 2025-02-20 18:01 | XMS_ITS | Encounter Summary ---
Author Organization [facility] Address [address] [facility] [address] [place] [address] Phone Care Team Providers Care Manager Business Planning Name Role Phone Giovanna Garcia NP Primary Care Provider [phone] Geronimo Beltran MD Unavailable [phone] Emely Barnes RN Unavailable [phone] Unknown, Unknown Primary Care Provider Hayley Couch MD Primary Care Provider Reason for Referral * MRI/CAT Scan - Closed Specialty Diagnoses / Procedures Referred By Braulio sheehan Referred To Contact Radiology Diagnoses White matter disease, unspecified Numbness Procedures MRI Thoracic Spine Efrain [place] MD Phone: tel: fax: [email or web address]:[email or web address] Referral ID Status Reason Start Date Expiration Date Visits Re quested Visits Authorized [id number] Closed 03/17/2020 03/17/2021 1 1 Encounter Details Date Type Department Care Team (Latest Contact Info) Description 03/17/2020 Transcribe Orders Virtual Department [address] [place] [address] Efrain [place] MD [address] [place] [address], [address] [place], [place] [phone] [email or web address] White matter disease, unspecified (Primary [...] 1:40 PM EST Office Visit [facility] [address] [place] [address] Efrain Melgar DO [address] [place] [address] [email or web address] documented as of this encounter Results [...] 3. No disc protrusion or stenosis. POS [id number] Narrative 03/26/2020 9:49 AM EDT TECHNIQUE: 1.5 [...] 3. No disc protrusion or stenosis. POS [id number] Efrain [place] MD IMG MR XSPECIALTY Final [...] documented as of this encounter Care Teams Manager Business Planning Relationship Specialty Start Date End Date Giovanna Garcia NP [email or web address] PCP - General Family Medicine 11/15/17 08/22/23 Unknown, [place], PCP - General 08/23/23 03/07/24 Hayley Ni MD [facility] [place] [address] PCP - General Internal Medicine 03/08/24 Geronimo Beltran MD [address] [place] [address] [email or web address] Insurance Assigned Provider 09/19/20 06/17/23 Emely Barnes, ABE [address] [place] [address] [email or web address] iCMP Manager [place] 07/27/21 08/10/21 documented as of this encounter Additional Source Comments The information contained in this document represents components of the legal health record. It is not the complete legal health record.[facility]
--- OUTSIDE RECORDS SUMMARY | 2025-02-20 18:01 | XMS_ITS | Clinical Summary ---
Author Organization [facility] Address [address] [employer] [facility] [address] [place] [address] Phone Care Team Providers Care Carousel Operator Name Role Phone Hayley Ni MD [...] done soon after waking up at a [facility] facility. Vitamin D deficiency 09/23/2024 Assessment [...] do dexamethasone suppression test to rule out Stanton syndrome. She will benefit from antiresorptive medications [...] intake. I asked her to buy Citracal [id number] she should take 2 tablets daily preferably [...] hopefully, they will again be available at [facility]. Syncope 03/10/2020 Assessment & Plan (07/06/2020 1:37 PM EST): No recurrence of any syncope, near syncope, or seizure symptoms recently. We will continue to check her loop recorder routinely. Assessment & Plan (03/11/2020 5:49 PM EDT): Question brought on by atrial fibrillation, versus seizure --Continue night monitor. Implantable loop recorder being planned for Monday [...] seen vaginal bleeding or bleeding with intercourse Hospice Registered Nurse exam normal Offered estrace topically Psychophysiological insomnia [...] she has elevated risk of stroke her [id number] score of 3 with 3.2% adjusted stroke [...] Team Description 02/06/2025 1:30 PM EDT Infusion [facility] [address] [place] [address] Efrain Melgar DO Age-related osteoporosis without current pathological fracture (Primary Dx) 01/10/2025 8:18 AM EDT - 01/10/2025 11:59 PM EDT Hospital Encounter [facility] Laboratory [address] [place] [address] Efrain Melgar DO Discharge Disposition: Home or Self Care 01/09/2025 3:00 PM EDT Office Visit [facility] [address] [place] [address] Efrain Melgar DO Age-related osteoporosis without current pathological fracture (Primary Dx); Elevated cortisol level; Vitamin D deficiency 12/23/2024 8:54 AM EDT - 12/23/2024 11:59 PM EDT Hospital Encounter [facility] [address] [place] [address] Efrain Melgar DO Discharge Disposition: Home or Self Care 12/20/2024 Refill [facility] [address] [place] [address] Efrain Melgar DO Medication Refill from Last 3 Months Immunizations Immunization Administration Dates Next Due INFLUENZA, SPLIT VIRUS, TRIVALENT PF 03/04/2016, 06/03/2015 INFLUENZA, SPLIT VIRUS, TRIV ALENT W/ PRESERVATIVE IM 03/12/2021,03/12/2019,01/31/2017,03/27,02/16/2011 Influenza High-Dose Quadriva lent Preservative Free IM 04/28/2022,05/31/2021,03/26/2020,03/12(Deferred: Not Available From Secretary To Board Of Commissioners) Influenza Quadrivalent Prese rvative Free IM 03/20/2019,03/20/2018 [...] 1:40 PM EST Office Visit [facility] [address] [place] [address] Efrain Melgar DO [address] [place] [address] Health Maintenance Due Date Last Done Comments [...] this topic Medical Devices Implanted Type Area Secretary To Board Of Commissioners Device Identifier Shelf Expiration Date Model / Serial / Lot Monitor Cardiac Implantable And Patient Home Monitor [employer] - [id number] Implanted:Qty: 1 on 03/20/2020 by Radu Somers MD at [facility] Implantable Monitor [employer] 11/23/2020 [employer] / [id number] / Procedures Procedure Name Priority Date/Time Associated [...] D (TOTAL) 44 30 - 60 ng/mL [facility] Blood 01/10/2025 8:19 AM EDT 01/10/2025 8:20 AM EDT us Efrain Melgar DO LAB BLOOD ORDERABLES Final Resul t Performing Organization Address City/[facility]/ZIP Co de Phone Number [address] [address] * Timed urine data (12/23/2024 8:30 AM EDT) COLLECTION DATA [facility] TOTAL VOLUME 900 mL [facility] 12/23/2024 8:30 AM EDT 12/23/2024 8:59 AM EDT us Efrain Melgar DO URINE ORDERABLES Final Result Performing Organization Address [facility] Co de Phone Number [address] [address] * Calcium, 24 hour urine (12/23/2024 8:30 AM EDT) URINE CALCIUM 11.8 mg/dL [facility] CALCIUM OUTPUT 106 100 - 300 mg/total output [facility] Urine (Urine) 12/23/2024 8:3 0 AM EDT 12/23/2024 8:59 AM EDT us Efrain Melgar DO URINE ORDERABLES Final Result Performing Organization Address [facility]/ZIP Co de Phone Number [address] [address] * Creatinine, 24 hr urine (12/23/2024 8:30 AM EDT) URINE CREATININE 80 mg/dL [facility] CREATININE OUTPUT 720 600 - 1,800 mg/total output [facility] Urine (Urine) 12/23/2024 8:3 0 AM EDT 12/23/2024 8:59 AM EDT us Efrain Melgar DO URINE ORDERABLES Final Result Performing Organization Address City/[facility]/ZIP Co de Phone Number [address] [address] * (ABNORMAL) Comprehensive metabolic panel (06/17/2024 8:43 AM EST) SODIUM 139 133 - 146 mmol/L [facility] POTASSIUM 3.4 3.3 - 5.1 mmol/L [facility] CHLORIDE 94(L) 96 - 108 mmol/L [facility] CO2 32 21 - 35 mmol/L [facility] BUN 19 6 - 19 mg/dL [facility] CREATININE 0.70 0.5 - 1.5 mg/dL [facility] GLUCOSE 112(H) 70 - 99 mg/dL [facility] ALBUMIN 4.6 3.9 - 4.8 g/dL [facility] TOTAL PROTEIN 8.0 6.5 - 8.0 g/dL [facility] CALCIUM 10.0 8.4 - 10.3 mg/dL [facility] ALKALINE PHOSPHATASE 132(H) 39 - 117 U/L [facility] TOTAL BILIRUBIN 0.3 0.0 - 1.2 mg/dL [facility] AST 19 0 - 37 U/L [facility] ALT 12 0 - 40 U/L [facility] GLOBULIN 3.4 1 - 4.8 g/dL [facility] EGFR 93 >59 mL/min/1.7 3m2 [facility] Comment:Estimated glomerular filtration rate calculated using the CKD-EPI refit equation. ANION GAP 16 10 - 20 mmol/L [facility] Blood 06/17/2024 8:43 AM EST 06/17/2024 8:50 AM EST Efrain Melgar DO LAB BLOOD ORDERABLES Final Resul t [facility] [address] [place] [address] * (ABNORMAL) Lipid panel (06/16/2020 10:50 AM EST) HDL 62 mg/dL [facility] Comment: Interpretation <40 mg/dL: Low HDL cholesterol (major risk factor for CHD) Greater than or equal to 60 mg/dL: High HDL cholesterol ( negative risk factor for CHD) HDL - cholesterol is affected by a number of factors, e.g. smoking, excerise, hormones, sex and age. CHOLESTEROL 250(H) 0 - 240 mg/dL [facility] TRIGLYCERIDES 145 30 - 160 mg/dL [facility] LDL 159(H) 50 - 129 mg/dL [facility] Comment: LDL levels in terms of risk for coronary heart disease: <100 mg/dL: Optimal 100-129 mg/dL: Near or above optimal 130-159 mg/dL: Borderline high 160-189 mg/dL: High >190 mg/dL: Very High CARDIAC RISK RATIO 4.0 3.3 - 4.4 [facility] Blood 06/16/2020 10:5 0 AM EST 06/16/2020 10:58 AM EST us Giovanna Garcia NP LAB BLOOD ORDERABLES Final Resu lt [address] [address] * Pap Smear (12/24/2019 12:00 AM EDT) 12/24/2019 12/26/2019 3:0 7 PM EDT Narrative SEE NARRATIVE - 01/03/2020 2:55 PM EDT [address] [address] Associate Professor Of Theology: Erna Brown MD EARTH SCIENCES PROFESSOR Cytology Report FINAL DIAGNOSIS A. PAP SMEAR [...] 52, 56, 58, 59, 66, 68) by [employer] On[employer]arity HR-HPV analysis. Clinical correlation is advised. This HPV test was performed at [facility], [address] [place] [address]. This test has been FDA approved for [facility]Path cervical cytology specimens. The accuracy and precision of this test for all other specimen sources has been verified in the Cytopathology Laboratory of the [facility] and has not been cleared or approved by the U.S. Food and Drug Administration. Clinical correlation is advised. CLINICAL HISTORY Date of Last Menstrual Period: Not Provided Menstrual History: Post Menopausal Other Clinical Conditions: Screening Pap SPECIMEN SOURCE A: PAP SMEAR (SUREPATH) CE Patient Name: ZAYNAB MCGUIRE : 1955 (Age: 64) Sex: F Institution: [facility] Location: [facility] Date of Collection: 12/24/2019 Date of Reported: [...] (12/11/2018 3:41 PM EDT) HCV Negative Negative [facility] Comment: This is a screening test and should be confirmed with molecular testing Blood 12/11/2018 3:41 PM EDT 12/11/2018 3:48 PM EDT Giovanna Garcia NP LAB BLOOD ORDERABLES Final Resu lt [address] [address] * COLONOSCOPY FOR RESULT ENTRY ONLY (12/10/2014) Colonoscopy . us Historical Provider MD HEALTH MAINTENANCE Final Result from Last 3 Months or Most Recently Relevant to Health Maintenance Insurance MEDICARE PART A & B Member Subscriber Plan / Payer (Ef fective 2019-Present) Name:Zaynab Mcguire Member ID:[id number] Relation to Subscriber:Self Name:Zaynab Mcguire Subscriber ID:[id number] Payer ID:[id number] Group ID:Not on file Type:Medicare Address: [facility]ive [facility] [employer] [facility] [address] [place] [address] [employer] MEDEX SUPPLEMENT MEDICARE PART A & B [employer] CROSS MEDEX SUPPLEMENT [employer] MEDEX SUPPLEMENT MEDICARE PART A & B [employer] MEDEX SUPPLEMENT MEDICARE PART A & B [employer] MEDEX SUPPLEMENT MEDICARE PART A & B [employer] MEDEX SUPPLEMENT MEDICARE PART A & B [employer] MEDEX SUPPLEMENT MEDICARE PART A & B [facility] MEDEX SUPPLEMENT MEDICARE PART A & B [employer] MEDEX SUPPLEMENT Advance Directives For more information, please contact: [phone] (9AM - 5PM [facility], Monday-Monday) Documents on File Type Date Recorded Patient Retail Client Solutions Analyst Expl anation Healthcare Proxy 04/30/2019 9:07 AM [...] Comments Code Discussion Comments: Patient Care Teams Carousel Operator Relationship Specialty Start Date End Date Hayley Ni MD [address] [facility] [place] [address] PCP - General Internal Medicine 03/08/24 Additional Source Comments The information contained in this document represents components of the legal health record. It is not the complete legal health record.[facility]
--- OUTSIDE RECORDS SUMMARY | 2025-02-20 18:01 | XMS_ITS | Encounter Summary ---
Author Organization [facility] Address [address] [facility] [address] [place] [address] Phone Care Team Providers Care Syrup Shed Supervisor Name Role Phone Giovanna Garcia NP Primary Care Provider [phone] Geronimo Beltran MD Unavailable [phone] Emely Barnes RN Unavailable [phone] Unknown, Unknown Primary Care Provider Hayley Couch MD Primary Care Provider Encounter Details Date Type Department Care Team (Late st Contact Info) Description 03/10/2020 Procedure Pass [facility], Ct Scan - [address] [address] Social History Tobacco Use Types Packs/Day Years [...] 1:40 PM EST Office Visit [facility] [address] Efrain Melgar DO [address] [place] [address] [email or web address] documented as [...] documented as of this encounter Care Teams Syrup Shed Supervisor Relationship Specialty Start Date End Date Giovanna Garcia NP [email or web address] PCP - General Family Medicine 11/15/17 08/22/23 Unknown, Unknown, MD PCP - General 08/23/23 03/07/24 Hayley Ni MD [facility] [place] [address] PCP - General Internal Medicine 03/08/24 Geronimo Beltran MD [address] [place] [address] [email or web address] Insurance Assigned Provider 09/19/20 06/17/23 Emely Barnes, ABE [address] [place] [address] [email or web address] iCMP Agricultural Systems Specialist 07/27/21 08/10/21 documented as of this encounter Additional Source Comments The information contained in this document represents components of the legal health record. It is not the complete legal health record.[facility]
--- OUTSIDE RECORDS SUMMARY | 2025-02-20 18:01 | XMS_ITS | Encounter Summary ---
Author Organization [facility] Address [address] [place] [address] Phone Care Team Providers Care Strapper And Buffer Name Role Phone Giovanna Garcia NP Primary Care Provider [phone] Geronimo Beltran MD Unavailable [phone] Emely Barnes RN Unavailable [phone] Unknown, Unknown Primary Care Provider Hayley Couch MD Primary Care Provider Encounter Details Date Type Department Care Team (Late st Contact Info) Description 12/26/2019 Ancillary [facility] [address] 3rd Floor, [address] [place] [address] Diana Hopkins, PLASTIC MOULD MAKER [address] [place] [address] [email or web address] Palpitations Social History Tobacco Use Types Packs/Day [...] PM EST Office Visit [facility] [address] [place] [address] Efrain Melgar DO 22 [place] [address] [email or web address] Scheduled Orders Name Type Priority Associated Diagnoses [...] documented as of this encounter Care Teams Strapper And Buffer Relationship Specialty Start Date End Date Giovanna Garcia, LINSEED OIL TEMPERER PCP - General Family Medicine 11/15/17 08/22/23 Unknown, Unknown, MD PCP - General 08/23/23 03/07/24 Hayley Ni MD [address] [place] [address] [place] [address] PCP - General Internal Medicine 03/08/24 Geronimo Beltran MD [address] [place] [address] [email or web address] Insurance Assigned Provider 09/19/20 06/17/23 Emely Barnes, RN [address] [place] [address] [email or web address] iCMP Truckload Owner Operator 07/27/21 08/10/21 documented as of this encounter Additional Source Comments The information contained in this document represents components of the legal health record. It is not the complete legal health record.[facility]
--- OUTSIDE RECORDS SUMMARY | 2025-02-20 18:01 | XMS_ITS | Encounter Summary ---
Author Organization [facility] Address [address] [facility] [address] [place] [address] Phone Care Team Providers Care Internet Sales Consultant Name Role Phone Geronimo Beltran MD Primary Care Provider [phone] Giovanna Garcia NP Primary Care Provider [phone] Geronimo Beltran MD Unavailable [phone] Emely Barnes RN Unavailable [phone] Unknown, Unknown Primary Care Provider Hayley Couch MD Primary Care Provider Encounter Details Date Type Department Care Team (Late Contact Info) Description 10/12/2017 Procedure Pass [facility], Ct Scan - [address] [address] Social History Tobacco Use Types Packs/Day Years [...] PM EST Office Visit [facility] 22 [place] [address] Efrain Melgar DO 22 [place] [address] documented as of this encounter Visit Diagnoses [...] documented as of this encounter Care Teams Internet Sales Consultant Relationship Specialty Start Date End Date Geronimo Beltran MD [address] [place] [address] [email or web address] PCP - General Internal Medicine 09/08/17 11/14/17 Giovanna Garcia NP 40 [place] [address] [email or web address] PCP - General Family Medicine 11/15/17 08/22/23 Unknown, Daxa, PCP - General 08/23/23 03/07/24 Hayley Ni MD [address] [place] [address] [place] [address] PCP - General Internal Medicine 03/08/24 Geronimo Beltran MD 40 [place] [address] [email or web address] Insurance Assigned Provider 09/19/20 06/17/23 Emely Barnes, RN [address] [place] [address] [email or web address] iCMP Forming Process Line Worker 07/27/21 08/10/21 documented as of this encounter Additional Source Comments The information contained in this document represents components of the legal health record. It is not the complete legal health record.[facility]
--- OUTSIDE RECORDS SUMMARY | 2025-02-20 18:01 | XMS_ITS | Encounter Summary ---
Author Organization [facility] Address [address] [facility] [address] [place] [address] Phone Care Team Providers Care Applications Chemist Name Role Phone Giovanna Garcia NP Primary Care Provider [phone] Geronimo Beltran MD Unavailable [phone] Emely Barnes RN Unavailable [phone] Unknown, Unknown Primary Care Provider Hayley Couch MD Primary Care Provider Encounter Details Date Type Department Care Team (Late Contact Info) Description 09/30/2020 Procedure Pass [facility] 30 [place] [address] Social History Tobacco Use Types Packs/Day Years [...] PM EST Office Visit [facility] [address] [place] [address] [place] [address] [email or web address] documented as [...] documented as of this encounter Care Teams Applications Chemist Relationship Specialty Start Date End Date Giovanna Garcia NP [email or web address] PCP - General Family Medicine 11/15/17 08/22/23 Unknown, Daxa, PCP - General 08/23/23 03/07/24 Hayley Ni MD [facility] [place] [address] PCP - General Internal Medicine 03/08/24 Geronimo Beltran MD [address] [place] [address] [email or web address] Insurance Assigned Provider 09/19/20 06/17/23 Emely Barnes, ABE [address] [place] [phone] iCMP Commanding Officer Homicide Squad 07/27/21 08/10/21 documented as of this encounter Additional Source Comments The information contained in this document represents components of the legal health record. It is not the complete legal health record.[facility]
--- OUTSIDE RECORDS SUMMARY | 2025-02-20 18:01 | XMS_ITS | Encounter Summary ---
Author Organization [facility] Address [address] [facility] [address] [place] [address] Phone Care Team Providers Care Mall Manager Name Role Phone Giovanna Garcia INSTRUMENTATION TECHNICIAN Primary Care Provider [phone] Geronimo Beltran MD Primary Care Provider [phone] Giovanna Garcia INSTRUMENTATION TECHNICIAN Primary Care Provider [phone] Geronimo Beltran MD Unavailable [phone] Emely Barnes RN Unavailable [phone] Unknown, Unknown Primary Care Provider Hayley Couch MD Primary Care Provider Encounter Details Date Type Department Care Team (Late st Contact Info) Description 09/05/2017 Procedure Pass [place] Admitting Dept - Virtual Department [address] [place] [address] Social History Tobacco Use Types Packs/Day Years [...] PM EST Office Visit [facility] 22 [place] [address] Efrain Melgar DO 22 [place] [address] documented as of this encounter Visit Diagnoses [...] documented as of this encounter Care Teams Mall Manager Relationship Specialty Start Date End Date Giovanna Garcia NP PCP - General Family Medicine 08/18/17 09/07/17 Geronimo Beltran MD 40 [place] [address] [email or web address] PCP - General Internal Medicine 09/08/17 11/14/17 Giovanna Garcia NP PCP - General Family Medicine 11/15/17 08/22/23 Unknown, Daxa, PCP - General 08/23/23 03/07/24 Hayley Ni MD [facility] [place] [address] PCP - General Internal Medicine 03/08/24 Geronimo Beltran MD [address] [place] [address] [email or web address] Insurance Assigned Provider 09/19/20 06/17/23 Emely Barnes, RN [address] [place] [address] [email or web address] iCMP Grout Worker 07/27/21 08/10/21 documented as of this encounter Additional Source Comments The information contained in this document represents components of the legal health record. It is not the complete legal health record.[facility]
--- OUTSIDE RECORDS SUMMARY | 2025-02-20 18:01 | XMS_ITS | Encounter Summary ---
Author Organization [facility] Address [address] [facility] [address] [place] [address] Phone Care Team Providers Care Formwork Carpenter Name Role Phone Giovanna Garcia NP Primary Care Provider [phone] Geronimo Beltran MD Unavailable [phone] Emely Barnes RN Unavailable [phone] Unknown, Unknown Primary Care Provider Hayley Couch MD Primary Care Provider Encounter Details Date Type Department Care Team (Late Contact Info) Description 03/20/2019 Ancillary Orders [facility],Outside [facility] 30 [place], [place] [id number] System, Provider [place] In, [place] [address] Social History Tobacco Use Types Packs/Day Years [...] 1:40 PM EST Office Visit [facility] [address] [place] [address] [place] [address] Efrain Melgar DO 22 [place] [address] [email or web address] documented as of this encounter Results [...] documented as of this encounter Care Teams Formwork Carpenter Relationship Specialty Start Date End Date Giovanna Garcia NP [email or web address] PCP - General Family Medicine 11/15/17 08/22/23 Unknown, Unknown, MD PCP - General 08/23/23 03/07/24 Hayley Ni MD [address] [place] [address] [place] [address] PCP - General Internal Medicine 03/08/24 Geronimo Beltran MD [address] [place] [address] [email or web address] Insurance Assigned Provider 09/19/20 06/17/23 Emely Barnes, RN [address] [place] [address] [email or web address] iCMP Online Services Manager 07/27/21 08/10/21 documented as of this encounter Additional Source Comments The information contained in this document represents components of the legal health record. It is not the complete legal health record.[facility]
--- OUTSIDE RECORDS SUMMARY | 2025-02-20 18:01 | XMS_ITS | Patient Health Record ---
Author Organization [facility] Address [address] [place] [phone] Care Team Providers Care Order Analyst Name Role Phone Abigail Em MD Primary Care Provider Noah Hummel [phone] Allergies Allergen (clinical drug ingredient) Drug/Non Drug [...] Problem Status W/U Status Risk Notes Problem [id number] Encounter for screening for malignant neoplasm of colon (Z12.11) Active confirmed Problem 022924591 History of adenomatous polyp of colon (Z86.010) Active confirmed Problem Nausea and vomiting (87275439) Nausea with vomiting, unspecified (R11.2) Active confirmed Problem 415494467 Gastroesophageal reflux disease without esophagitis (K21.9) Active confirmed Problem 90105026 Dysphagia, unspecified type (R13.10) Active confirmed Problem Acute diarrhea (286654984) Acute diarrhea (R19.7) Active confirmed Plan Of [...] Date MEDICARE OF [place] [address] [facility] [address] [id number] VJ MCGUIRE Self - patient is the insured [employer] ATTN CLAIMS [address] [place] [phone] [id number] VJ MCGUIRE Self - patient is [...] some sigmoid diverticulosis and internal hemorrhoids Denies NE,CVA,DM,renal disease Hyperlipidemia Anxiety since 08/2011 IBS-EGD with normal duodenal biopsies in 2012 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 during the day; going for a sleep study as of the 11/2019 OV to check for sleep apnea Pneumonia in 09/2015--at [facility] Hypertension Grand mal seizure 02/[address] [facility] Atrial fibrillation with a l oop [...]
--- OUTSIDE RECORDS SUMMARY | 2025-02-20 18:01 | XMS_ITS | Encounter Summary ---
Author Organization [facility] Address [address] [facility] [address] [place] [address] Phone Care Team Providers Care Mind Reader Name Role Phone Giovanna Garcia NP Primary Care Provider [phone] Geronimo Beltran MD Unavailable [phone] Emely Barnes RN Unavailable [phone] Unknown, Unknown Primary Care Provider Hayley Couch MD Primary Care Provider Encounter Details Date Type Department Care Team (Late Contact Info) Description 03/20/2019 Ancillary Orders [facility],Outside [facility] 30 [place], [place] [id number] System, Provider [place] In, [place] [address] Social History Tobacco Use Types Packs/Day Years [...] 1:40 PM EST Office Visit [facility] [address] [place] [address] [place] [address] Efrain Melgar DO 22 [place] [address] [email or web address] documented as of this encounter Results * [...] documented as of this encounter Care Teams Mind Reader Relationship Specialty Start Date End Date Giovanna Garcia NP [email or web address] PCP - General Family Medicine 11/15/17 08/22/23 Unknown, Unknown, MD PCP - General 08/23/23 03/07/24 Hayley Ni MD [address] [place] [address] [place] [address] PCP - General Internal Medicine 03/08/24 Geronimo Beltran MD [address] [place] [address] [email or web address] Insurance Assigned Provider 09/19/20 06/17/23 Emely Barnes, RN [address] [place] [address] [email or web address] iCMP Limehouse Worker 07/27/21 08/10/21 documented as of this encounter Additional Source Comments The information contained in this document represents components of the legal health record. It is not the complete legal health record.[facility]
--- OUTSIDE RECORDS SUMMARY | 2025-02-20 18:01 | XMS_ITS | Encounter Summary ---
Author Organization [facility] Address [address] [facility] [address] [place] [address] Phone Care Team Providers Care Director Of Cardiac Rehabilitation Name Role Phone Giovanna Garcia NP Primary Care Provider [phone] Geronimo Beltran MD Unavailable [phone] Emely Barnes RN Unavailable [phone] Unknown, Unknown Primary Care Provider Hayley Couch MD Primary Care Provider Encounter Details Date Type Department Care Team (Late st Contact Info) Description 11/16/2020 Procedure Pass Non-Invasive Cardiology [address] [place] [address] Social History Tobacco Use Types Packs/Day Years [...] PM EST Office Visit [facility] [address] [place] [address] Efrain Melgar DO 22 [place] [address] [email or web address] documented as of this encounter Visit Diagnoses [...] documented as of this encounter Care Teams Director Of Cardiac Rehabilitation Relationship Specialty Start Date End Date Giovanna Garcia NP [email or web address] PCP - General Family Medicine 11/15/17 08/22/23 Unknown, Unknown, PCP - General 08/23/23 03/07/24 Hayley iN MD [facility] [place] [address] PCP - General Internal Medicine 03/08/24 Geronimo Beltran MD [address] [place] [address] [email or web address] Insurance Assigned Provider 09/19/20 06/17/23 Emely Barnes, ABE [address] [place] [address] iCMP Fly Setter 07/27/21 08/10/21 documented as of this encounter Additional Source Comments The information contained in this document represents components of the legal health record. It is not the complete legal health record.[facility]
--- OUTSIDE RECORDS SUMMARY | 2025-02-20 18:01 | XMS_ITS | Encounter Summary ---
Author Organization [facility] Address [address] [facility] [address] [place] [address] Phone Care Team Providers Care Drywall Installer Name Role Phone Giovanna Garcia NP Primary Care Provider [phone] Geronimo Beltran MD Unavailable [phone] Emely Barnes RN Unavailable [phone] Unknown, Unknown Primary Care Provider Hayley Couch MD Primary Care Provider Encounter Details Date Type Department Care Team (Late st Contact Info) Description 02/16/2021 Procedure Pass Non-Invasive Cardiology [address] [place] [address] Social History Tobacco Use Types Packs/Day Years [...] PM EST Office Visit [facility] [address] [place] [address] Efrain Melgar DO 22 [place] [address] [email or web address] documented as of this encounter Visit Diagnoses [...] documented as of this encounter Care Teams Drywall Installer Relationship Specialty Start Date End Date Giovanna Garcia NP [email or web address] PCP - General Family Medicine 11/15/17 08/22/23 Unknown, Unknown, PCP - General 08/23/23 03/07/24 Hayley Ni MD [facility] [place] [address] PCP - General Internal Medicine 03/08/24 Geronimo Beltran MD [address] [place] [address] [email or web address] Insurance Assigned Provider 09/19/20 06/17/23 Emely Barnes, ABE [address] [place] [address] iCMP Tugboat Engineer 07/27/21 08/10/21 documented as of this encounter Additional Source Comments The information contained in this document represents components of the legal health record. It is not the complete legal health record.[facility]
--- OUTSIDE RECORDS SUMMARY | 2025-02-20 18:01 | XMS_ITS | Encounter Summary ---
Author Organization [facility] Address [address] [facility] [address] [place] [address] Phone Care Team Providers Care Pickling Grader Name Role Phone Giovanna Garcia NP Primary Care Provider [phone] Geronimo Beltran MD Unavailable [phone] Emely Barnes RN Unavailable [phone] Unknown, Unknown Primary Care Provider Hayley Couch MD Primary Care Provider Encounter Details Date Type Department Care Team (Late st Contact Info) Description 03/10/2020 Procedure Pass [facility], Ct Scan - [address] [address] Social History Tobacco Use Types Packs/Day Years [...] 1:40 PM EST Office Visit [facility] [address] Efrain Melgar DO 22 [place] [address] [email or web address] documented [...] documented as of this encounter Care Teams Pickling Grader Relationship Specialty Start Date End Date Giovanna Garcia NP [email or web address] PCP - General Family Medicine 11/15/17 08/22/23 Unknown, Unknown, MD PCP - General 08/23/23 03/07/24 Hayley Ni MD [facility] [place] [address] PCP - General Internal Medicine 03/08/24 Geronimo Beltran MD [address] [place] [address] [email or web address] Insurance Assigned Provider 09/19/20 06/17/23 Emely Barnes, ABE [address] [place] [address] [email or web address] iCMP Roll Finisher 07/27/21 08/10/21 documented as of this encounter Additional Source Comments The information contained in this document represents components of the legal health record. It is not the complete legal health record.[facility]
--- OUTSIDE RECORDS SUMMARY | 2025-02-20 18:01 | XMS_ITS | Encounter Summary ---
Author Organization [facility] Address [address] [facility] [address] [place] [address] Phone Care Team Providers Care Station Operator Name Role Phone Givoanna Garcia NP Primary Care Provider [phone] Geronimo Beltran MD Unavailable [phone] mEely Barnes RN Unavailable [phone] Unknown, Unknown Primary Care Provider Hayley Couch MD Primary Care Provider Encounter Details Date Type Department Care Team (Late Contact Info) Description 03/20/2019 Ancillary Orders [facility],Outside [facility] 30 [place], [place] [id number] System, Provider [place] In, [place] [address] Social History Tobacco Use Types Packs/Day Years [...] 1:40 PM EST Office Visit [facility] [address] [place] [address] [place] [address] Efrain Melgar DO 22 [place] [address] [email or web address] documented as of this encounter Results * [...] documented as of this encounter Care Teams Station Operator Relationship Specialty Start Date End Date Giovanna Garcia NP [email or web address] PCP - General Family Medicine 11/15/17 08/22/23 Unknown, Unknown, MD PCP - General 08/23/23 03/07/24 Hayley Ni MD [address] [place] [address] [place] [address] PCP - General Internal Medicine 03/08/24 Geronimo Beltran MD [address] [place] [address] [email or web address] Insurance Assigned Provider 09/19/20 06/17/23 Emely Barnes, RN [address] [place] [address] [email or web address] iCMP Iron Worker Foreman 07/27/21 08/10/21 documented as of this encounter Additional Source Comments The information contained in this document represents components of the legal health record. It is not the complete legal health record.[facility]
--- OUTSIDE RECORDS SUMMARY | 2025-02-20 18:01 | XMS_ITS | Encounter Summary ---
Author Organization [facility] Address [address] [facility] [address] [place] [address] Phone Care Team Providers Care Prompt Care Rn Name Role Phone Geronimo Beltran MD Primary Care Provider [phone] Giovanna Garcia NP Primary Care Provider [phone] Geronimo Beltran MD Unavailable [phone] Emely Barnes RN Unavailable [phone] Unknown, Unknown Primary Care Provider Hayley Couch MD Primary Care Provider Encounter Details Date Type Department Care Team (Late st Contact Info) Description 09/08/2017 Procedure Pass [facility], Ct Scan - [address] [address] Social History Tobacco Use Types Packs/Day Years [...] PM EST Office Visit [facility] [address] [place] [address] Efrain Melgar DO [address] [place] [address] [email or web address] documented as of this encounter Visit [...] documented as of this encounter Care Teams Prompt Care Rn Relationship Specialty Start Date End Date Geronimo Beltran MD [address] [place] [address] [email or web address] PCP - General Internal Medicine 09/08/17 11/14/17 Giovanna Garcia, HEATER MECHANIC 40 [place] [address] [email or web address] PCP - General Family Medicine 11/15/17 08/22/23 Unknown, Daxa, MD PCP - General 08/23/23 03/07/24 Hayley Ni MD [address] [place] [address] [place] [address] PCP - General Internal Medicine 03/08/24 Geronimo Beltran MD 40 [place] [address] [email or web address] Insurance Assigned Provider 09/19/20 06/17/23 Emely Barnes, RN 10 [place] [address] [email or web address] iCMP Chief Supply Chain Officer 07/27/21 08/10/21 documented as of this encounter Additional Source Comments The information contained in this document represents components of the legal health record. It is not the complete legal health record.[facility]
== END 2025-02-20 15:23 | disposition home or self-care (01) ==
LOC: HO.HUSH 14:14
PROVIDERS: PCP Internal Medicine; Visit Provider Urology
DX: N39.0 Urinary tract infection, site not specified (principal); N30.20 Other chronic cystitis without hematuria; N32.89 Other specified disorders of bladder; N36.8 Other specified disorders of urethra
CPT/HCPCS: 52000; 99214

== ENCOUNTER → 2025-02-20 14:13 | Outpatient (BNVA) | payer MEDICARE, SELFPAY | PROVIDERS: PCP Internal Medicine; Visit Provider Urology | DX: N30.20 Other chronic cystitis without hematuria (principal); N32.89 Other specified disorders of bladder; N36.8 Other specified disorders of urethra | CPT/HCPCS: 52000; 81003; 99212 ==

== ENCOUNTER 2025-03-10 14:00 | Outpatient (REF) | payer MEDICARE, SELFPAY | END 2025-03-10 14:01 | disposition home or self-care (01) | LOC: HO.LNP 14:00 | PROVIDERS: PCP Internal Medicine; Visit Provider Hospitalist | DX: J44.0 Chronic obstructive pulmonary disease with (acute) lower respiratory infection (principal); J44.89 Other specified chronic obstructive pulmonary disease; C34.90 Malignant neoplasm of unspecified part of unspecified bronchus or lung; G47.33 Obstructive sleep apnea (adult) (pediatric); Z99.89 Dependence on other enabling machines and devices; Z87.891 Personal history of nicotine dependence | CPT/HCPCS: 87070; 87205; 94640; 99212 ==

== ENCOUNTER 2025-03-10 14:00 | Outpatient (AMB) | payer MEDICARE, SELFPAY ==
--- OUTSIDE RECORDS SUMMARY | 2012-01-30 | XMS_ITS | Encounter Summary ---
Author Organization [facility] Address [address] [place] [address] Phone Care Team Providers Care Beater Tender Name Role Phone Unavailable Primary Care Provider Unavailabl e Encounter Details Date Type Department Care Team (Late st Contact Info) Description 01/30/2012 Hospital Encounter [facility],Outside Imaging 30 [place], [place] [phone] System, Provider Not In, [facility] [address] [address] Social History Tobacco Use Types Packs/Day Years [...] 1:41 PM EDT Vivi Thomas RN * [place] Suicide Severity Rating Scale (Screener/Recent Self-Report) Question [...] PM EST Office Visit [facility] [address] [place] [address] Efrain Melgar DO 22 [place] [address] [email or web address] documented as of this encounter Procedures Procedure [...] It is not the complete legal health record.[facility]
[2025-03-10 14:03] VITALS: BP 150/62; PULSE 87; O2SAT 94; BMI 23.1
--- NOTE | 2025-03-10 14:03 | MHC.OFFVIS ---
Vital Signs 03/10/25 14:03 Height 5 ft 6 in Weight 143 lb 4.807 oz BMI 23.1 BP 150/62 H Blood Pressure Location Lt brachial Position Sitting Pulse 87 Pulse Source Pulse Oximeter Pulse Oximetry (%) 94 Oxygen Delivery Method Room Air Intake Visit Reasons: COPD Hospice Patient Care Secretary Required: No Accompanied by: Spouse Allergies bupropion (From Wellbutrin) Allergy (Verified 03/10/25 14:06) Chest Pain ciprofloxacin Allergy (Verified 03/10/25 14:06) Chest Pain IV/IM prednisone Allergy (Uncoded 11/25/24 09:46) Seizure HPI Comments Details: The patient is a 69 year woman with a known history of COPD in addition to lung cancer. Apparently she underwent a screening imaging study demonstrating a right upper lobe pulmonary malignant process. She referred to thoracic surgery where she underwent a right upper lobe lobectomy with curative intent. The patient was indeed confirmed to have cancer and she did not need any chemo or radiation. She did have her serial CT scans every 6 months and now moved over to every year. Back in March 2022 she was admitted to the hospital with palpitations cardiac arrhythmia and atrial fibrillation. During the hospitalization she did have a CTA which was personally by me demonstrating the postsurgical changes in addition to all other subcentimeter pulmonary nodules. in addition to this her CT scan demonstrates evidence of mosaic pattern suggesting of air trapping from her obstructive airway disease. Regards of her COPD the patient was placed on azithromycin which she is has been taking. Although, she is also been taking flecainide which is a concern as far as QT prolongation and severe cardiac arrhythmias. Therefore, the patient is okay stopping the medication at this time. She is using Breztri inhaler which has been affecting beneficial. Does not appear to be activating her atrial fibrillation. In addition to this the patient does have a hiatal hernia. She does sleep elevated and does take a PPI. Currently she is asymptomatic. 05/25/2023 the patient is here for a pulmonary follow-up visit. The patient now is recovering from COVID-19. She does fairly sick. She yet is 2 weeks out. The patient still having some shortness of breath chest tightness and chest congestion. She also feels fatigued. She did not take packs [place]. She had not taken any medications. She has been using her nebulizer and also her respiratory medicines. She does have a history atrial fibrillation. I will switch her DuoNeb over to Xopenex to minimize in the irritability to the heart. The patient also she underwent pulmonary function studies. It was very hard for her to go them. Consistent with her COPD in addition to diffusion impairment. She does have oxygen available. She will benefit from pulmonary rehabilitation. Will consider this when she improves after having COVID. We did review her CT scan of the chest that she had back in 2021. She does appear to have some irregular airways likely just kinking of the airways postoperatively. Although would not be unreasonable to consider bronchoscopy. We will reassess her in the springtime. If she continues to be symptomatic will consider bronchoscopy otherwise will wait for CT scan that will be done sometime in October. [id number] the patient is here for a pulmonary follow-up visit. The patient overall has been doing okay. She does have a follow-up with thoracic surgery this week to follow-up with her CT scan of the chest. Her CT scan did get the report and is reassuring with postoperative changes and stable pulmonary nodules. She continues to have shortness of breath. Does not seem to respond as well to the respiratory inhaler, Breztri. She would like to try Trelegy instead. I will send to the pharmacy and see flu prior approval. The patient also has a rescue medicine that she can use as needed. She complains of the shortness of breath with activity. Moderate severity even with minimal activity. The patient is likely deconditioned. She needs to start pulmonary rehabilitation. She is agreeable at this time start here. Her last PFTs did demonstrate significant COPD. 01/04/2024 the patient is here for a pulmonary follow-up visit. She is having hard time with the breathing. Having chest congestion cough shortness of breath. She has been using her nebulizer with partial improvement. She has been noticing increasing breathlessness moderate severity. The patient denies any fevers or chills. She did recently was placed on Macrobid for UTI and she is also dealing with dental issues. Feels that she has not dental infection. She started to cough more as well and has been having more chest congestion. Her CT scans at now yearly based on her stability of her lung cancer history this is followed by thoracic surgery at [facility]. In addition to that the patient needs additional respiratory medications. Inhalers have not effective. Therefore which is switch over to nebulized therapy. She continues on the Xopenex that she continue continue twice a day. Will go ahead and add a long-acting muscarinic antagonist and also add a inhaled corticosteroid via nebulizer. The patient follow-up in 3 4 months. If the patient is no better she will call for further evaluation. 03/10/2025 the patient is here for a follow-up visit. She has been sick now for about a week and a half. She has been complaining worsening cough chest congestion. Shortness of breath. Moderate severity. He has been using her oxygen a little more. She does follow-up closely with thoracic surgery regarding her history of lung cancer. She does have a CAT scan coming up. We were able to provide her with a nebulizer treatment in the office we will albuterol and also hypertonic saline. We were able to collect a sputum which we sent for culture. In the meantime will start the patient on some antibiotics and prednisone. She will continue with the current respiratory therapy. I will provide her also hypertonic saline for her nebulizer that she can use for CPT and mucus clearance. The patient is no better she is going to have a chest x-ray. Otherwise will follow-up in 1-2 months. [facility] Medical History Recurrent urinary tract infection History of lung cancer Dyslipidemia History of adenomatous polyp of colon Hx of TIA (transient ischemic attack) and stroke History of seizure disorder Achalasia of esophagus Osteoporosis HTN (hypertension) KRISTEN on CPAP Asthma-COPD overlap syndrome GERD (gastroesophageal reflux disease) Surgical History S/P cardiac catheterization S/P partial lobectomy of lung H/O wrist surgery History of cholecystectomy Family History Mother Small cell lung cancer Father Stomach cancer Brother Diabetes Throat cancer Social History Household Members: Spouse and Children Housing: House Do you presently have visiting nurse or other home services: No Alcohol intake: current Alcohol intake frequency: does not drink Patient Tobacco Use Status: Former Tobacco user Years Smoked: 30 +/- e-Cigarette/Vaping Use: Never Used Substance Use Type: Marijuana Advance Directives Date on File: 04/21/22 service: No Current occupational status: retired Cognitive needs: No Hearing needs: No Vision needs: Yes Review of Systems Const Denies chills, Reports fatigue, Denies fever(s), Denies frequent falls, Denies weakness, Denies weight gain and Denies weight loss Eyes Denies change in vision ENT Denies dizziness and Denies throat swelling Card Denies chest pain, Denies leg edema, Denies lightheadedness, Denies palpitations, Denies dyspnea, Reports dyspnea on exertion, Denies orthopnea and Denies other (loss of consciousness) Resp Reports change in phlegm color, Reports chest congestion, Reports cough, Denies dyspnea, Reports dyspnea on exertion and Reports wheezing GI Denies hematochezia and Denies change in stool character Musc Denies abnormal gait, Denies muscle weakness, Denies numbness, Denies radiating pain into limb and Denies tingling Neuro Denies abnormal gait, Denies dizziness, Denies frequent falls, Denies numbness, Denies tingling and Denies weakness Endo Reports fatigue and Denies palpitations Aller/Immun Denies seasonal rhinorrhea, Denies throat swelling and Reports wheezing Physical Exam Vital Signs: Last Vital Signs Pulse 87 03/10/25 14:03 BP 150/62 H 03/10/25 14:03 Pulse Ox 94 03/10/25 14:03 Oxygen Delivery Method Room Air 03/10/25 14:03 BMI result Body Mass Index 23.1 Const General: cooperative, comfortable and no acute distress Orientation/consciousness: patient oriented x3 Chest Chest palpation & inspection: normal inspection of the chest Resp Effort & Inspection: normal respiratory effort and prolonged expiratory phase Auscultation: rales, rhonchi, no wheezes and diminished lung sounds Cardio Rate: regular rate Rhythm: regular rhythm Heart sounds: S1 normal heart sound present and S2 normal heart sound present Neuro General: patient oriented x3 Extrem General: Yes no pedal edema Office Procedures Nebulizer Treatment Nebulizer Treatment [id number]/[id number] RX initial, or Nebulizer Subsequent Treatment Office Meds levalbuterol HCl 1.25 mg/3 mL solution for nebulization Performing Provider: Samuel Redman MD Performing Location: [facility] Administered by: Marisabel Keen LPN on 03/10/25 14:58 Dose Route Admin Location Dispensed Lot Number Expiration Date [facility] Proof Machine Operator Supervisor 1.25 mg inhalation 3 mL [id number] 08/09/26 40741-277-76 [employer] sodium chloride 3 % for nebulization Performing Provider: Samuel Redman MD Performing Location: [facility] Administered by: Marisabel Keen LPN on 03/10/25 14:58 Dose Route Admin Location Dispensed Lot Number Expiration Date [place] Proof Machine Operator Supervisor 3 mL inhalation 3 mL [id number] 01/09/26 [id number] [facility] Assessment & Plan Assessment & Plan (1) Lower respiratory infection (e.g., bronchitis, pneumonia, pneumonitis, pulmonitis): Code(s): J22 - Unspecified acute lower respiratory infection Category: Medical (2) COPD (chronic obstructive pulmonary disease): Code(s): J44.9 - Chronic obstructive pulmonary disease, unspecified Category: Medical Qualifiers: COPD type: COPD with acute lower respiratory infection Qualified Code(s): J44.0 - Chronic obstructive pulmonary disease with (acute) lower respiratory infection (3) Asthma-COPD overlap syndrome: Code(s): J44.9 - Chronic obstructive pulmonary disease, unspecified Category: Medical (4) Lung cancer: Code(s): C34.90 - Malignant neoplasm of unspecified part of unspecified bronchus or lung Category: Medical Qualifiers: Laterality: unspecified laterality Lung location: unspecified part of lung Qualified Code(s): C34.90 - Malignant neoplasm of unspecified part of unspecified bronchus or lung (5) KRISTEN on CPAP: Code(s): G47.33 - Obstructive sleep apnea (adult) (pediatric) Category: Medical Plan start Doxycycline Start Prednisone taper Start Hypertonic saline nebs Sputum cx CXR if no better continue Trelegy GÓMEZ as needed continue Xopenex for nebulizer medicine Serial CT chest as per Thoracic surgery F/U 1-2 months Orders: Orders XR chest 2V Today J44.9 - Chronic obstructive pulmonary disease, unspecified AMB Nebulizer Treatment Today J44.9 - Chronic obstructive pulmonary disease, unspecified Sputum Cult + Gram stain Today R91.1 - Solitary pulmonary nodule Medications: New prednisone PO daily; Take 4 tabs x 3 days, then 3 tabs x 3 days, then 2 tabs daily x 3 days, then 1 tab x 3 days to complete. 30 tabs 0RF 12 days sodium chloride 3% 4 mL inhalation BID 240 mL 11RF 30 days doxycycline hyclate 100 mg PO BID 20 caps 0RF 10 days Coding Level of Care Code Est Pt Level 4 (38648) Complex EM visit Add On G2211 Diagnoses Lower respiratory infection (e.g., bronchitis, pneumonia, pneumonitis, pulmonitis) J22 Chronic obstructive pulmonary disease with acute lower respiratory infection J44.0 COPD type: COPD with acute lower respiratory infection Asthma-COPD overlap syndrome J44.9 Malignant neoplasm of lung, unspecified laterality, unspecified part of lung C34.90 Laterality: unspecified laterality Lung location: unspecified part of lung KRISTEN on CPAP G47.33 CPT Codes Nebulizer Treatment - Nebulizer Treatment, initial or subsequent: [id number]/MDI RX initial, or Nebulizer Subsequent Treatment ([id number]) Time Spent (min) 18
--- OUTSIDE RECORDS SUMMARY | 2025-03-10 15:48 | XMS_ITS | Encounter Summary ---
Author Organization [facility] Address [address] [facility] [address] [place] [address] Phone Care Team Providers Care Performance Makeup Artist Name Role Phone Giovanna Garcia NP Primary Care Provider [phone] Geronimo Beltran MD Unavailable [phone] Emely Barnes RN Unavailable [phone] Unknown, Unknown Primary Care Provider Hayley Couch MD Primary Care Provider Encounter Details Date Type Department Care Team (Late Contact Info) Description 03/20/2020 Procedure Pass [facility] [address] [place] [address] Social History Tobacco Use Types Packs/Day Years [...] [facility] [address] [place] [address] Efrain Melgar DO [address] [place] [address] [email or web address] documented as of this encounter Visit Diagnoses [...] documented as of this encounter Care Teams Performance Makeup Artist Relationship Specialty Start Date End Date Giovanna Garcia NP [email or web address] PCP - General Family Medicine 11/15/17 08/22/23 Unknown, Unknown, MD PCP - General 08/23/23 03/07/24 Hayley Ni MD [address] [facility] [place] [address] PCP - General Internal Medicine 03/08/24 Geronimo Beltran MD [address] [place] [address] [email or web address] Insurance Assigned Provider 09/19/20 06/17/23 Emely Barnes, RN [address] [place] [address] [email or web address] iCMP Subgrade Roller Operator 07/27/21 08/10/21 documented as of this encounter Additional Source Comments The information contained in this document represents components of the legal health record. It is not the complete legal health record.[facility]
--- OUTSIDE RECORDS SUMMARY | 2025-03-10 15:48 | XMS_ITS | Encounter Summary ---
Author Organization [facility] Address [address] [facility] [address] [place] [address] Phone Care Team Providers Care Melter Loader Name Role Phone Giovanna Garcia NP Primary Care Provider [phone] Geronimo Beltran MD Unavailable [phone] Emely Barnes RN Unavailable [phone] Unknown, Unknown Primary Care Provider Hayley Couch MD Primary Care Provider Encounter Details Date Type Department Care Team (Late Contact Info) Description 03/20/2020 Procedure Pass [facility] [address] [place] [address] Social History Tobacco Use Types Packs/Day Years [...] [facility] [address] [place] [address] Efrain Melgar DO [address] [place] [address] [email or web address] documented as of this encounter Visit Diagnoses [...] documented as of this encounter Care Teams Melter Loader Relationship Specialty Start Date End Date Giovanna Garcia NP [email or web address] PCP - General Family Medicine 11/15/17 08/22/23 Unknown, Unknown, MD PCP - General 08/23/23 03/07/24 Hayley Ni MD [address] [facility] [place] [address] PCP - General Internal Medicine 03/08/24 Geronimo Beltran MD [address] [place] [address] [email or web address] Insurance Assigned Provider 09/19/20 06/17/23 Emely Branes, RN [address] [place] [address] [email or web address] iCMP Manager Employee Benefits 07/27/21 08/10/21 documented as of this encounter Additional Source Comments The information contained in this document represents components of the legal health record. It is not the complete legal health record.[facility]
--- OUTSIDE RECORDS SUMMARY | 2025-03-10 15:48 | XMS_ITS | Encounter Summary ---
Author Organization [facility] Address [address] [place] [address] Phone Care Team Providers Care Tiler Name Role Phone Giovanna Garcia NP Primary Care Provider [phone] Geronimo Beltran MD Unavailable [phone] Unknown, Unknown Primary Care Provider Hayley Couch MD Primary Care Provider Encounter Details Date Type Department Care Team (Late st Contact Info) Description 02/09/2022 Transcribe Orders [facility] Laboratory [address] [facility] [place] [address] Jacky Little MD [address] [address] [email or web address] Social History Tobacco Use Types Packs/Day Years [...] high school, GED, job training, learning the Filipino language, technical skills, or developing parenting skills)? [...] PM EST Office Visit [facility] [address] [place] [address] [place] [address] Efrain Melgar, DO [address] [place] [address] documented as of this encounter Visit Diagnoses Not on filedocumented in this encounter Additional Health Concerns Infection Onset Date Last Indicated Resolved Time CoV-Risk 03/29/2022 03/29/2022 04/09/2022 1:22 AM EDT Assessment Noted Time PHQ-2 Depression Total Score: 2 08/11/19 9:20 AM EST documented as of this encounter Care Teams Tiler Relationship Specialty Start Date End Date Giovanna Garcia NP [email or web address] PCP - General Family Medicine 11/15/17 08/22/23 Unknown, Unknown, MD PCP - General 08/23/23 03/07/24 Hayley Ni MD [facility] [place] [address] PCP - General Internal Medicine 03/08/24 Geronimo Beltran MD [address] [place] [address] [email or web address] Insurance Assigned Provider 09/19/20 06/17/23 documented as of this encounter Additional Source Comments The information contained in this document represents components of the legal health record. It is not the complete legal health record.[facility]
--- OUTSIDE RECORDS SUMMARY | 2025-03-10 15:49 | XMS_ITS | Encounter Summary ---
Author Organization [facility] Address [address] [facility] [address] [place] [address] Phone Care Team Providers Care Front End Mechanic Name Role Phone Giovanna Garcia NP Primary Care Provider [phone] Geronimo Beltran MD Unavailable [phone] Emely Barnes RN Unavailable [phone] Unknown, Unknown Primary Care Provider Hayley Couch MD Primary Care Provider Encounter Details Date Type Department Care Team (Late st Contact Info) Description 02/01/2021 Procedure Pass [facility], [address] [address] Social History Tobacco Use Types Packs/Day Years [...] 1:40 PM EST Office Visit [facility] [place] [address] Efrain Melgar DO [address] [place] [address] [email or web address] documented as of this encounter Visit Diagnoses [...] documented as of this encounter Care Teams Front End Mechanic Relationship Specialty Start Date End Date Giovanna Garcia NP [email or web address] PCP - General Family Medicine 11/15/17 08/22/23 Unknown, Unknown, PCP - General 08/23/23 03/07/24 Hayley Ni MD [facility] [address] PCP - General Internal Medicine 03/08/24 Geronimo Beltran MD [address] [place] [address] [email or web address] Insurance Assigned Provider 09/19/20 06/17/23 Emely Barnes, RN [address] [place] [address] iCMP Social Media Strategist 07/27/21 08/10/21 documented as of this encounter Additional Source Comments The information contained in this document represents components of the legal health record. It is not the complete legal health record.[facility]
--- OUTSIDE RECORDS SUMMARY | 2025-03-10 15:49 | XMS_ITS | Encounter Summary ---
Author Organization [facility] Address [address] [place] [address] Phone Care Team Providers Care Tax Manager Name Role Phone Giovanna Garcia NP Primary Care Provider [phone] Geronimo Beltran MD Unavailable [phone] Emely Barnes RN Unavailable [phone] Unknown, Unknown Primary Care Provider Hayley Couch MD Primary Care Provider Encounter Details Date Type Department Care Team (Late st Contact Info) Description 12/26/2019 Ancillary [facility] [address] Floor, [address] [place] [address] Diana Hopkins, NEWS WIRE PHOTO OPERATOR [address] [place] [address] [email or web address] Palpitations Social History Tobacco Use Types [...] 1:40 PM EST Office Visit [facility] [address] [place] [address] Efrain Melgar DO [address] [place] [address] [email or web address] Scheduled Orders Name Type Priority Associated Diagnoses [...] documented as of this encounter Care Teams Tax Manager Relationship Specialty Start Date End Date Giovanna Garcia, DIRECTOR OF ENGINEERING PCP - General Family Medicine 11/15/17 08/22/23 Unknown, Unknown, MD PCP - General 08/23/23 03/07/24 Hayley Ni MD [address] [place] [address] [place] [address] PCP - General Internal Medicine 03/08/24 Geronimo Beltran MD [address] [place] [address] [email or web address] Insurance Assigned Provider 09/19/20 06/17/23 Emely Barnes, RN [address] [place] [phone] [email or web address] iCMP Manager Of Network 07/27/21 08/10/21 documented as of this encounter Additional Source Comments The information contained in this document represents components of the legal health record. It is not the complete legal health record.[facility]
--- OUTSIDE RECORDS SUMMARY | 2025-03-10 15:49 | XMS_ITS | Encounter Summary ---
Author Organization [facility] Address [address] [place] [address] Phone Care Team Providers Care Porter Marina Name Role Phone Giovanna Garcia KNUCKLER Primary Care Provider [phone] Geronimo Beltran MD Unavailable [phone] Emely Barnes RN Unavailable [phone] Unknown, Unknown Primary Care Provider Hayley Couch MD Primary Care Provider Encounter Details Date Type Department Care Team (Latest Contact Info) Description 03/18/2020 Prep for Surgery [facility] [address] [place] [address] Dr [address]rd Floor, [address] [place] [address] Radu Somers MD [address] [place] [address] [email or web address] Syncope and collapse (Primary Dx) Social [...] 1:40 PM EST Office Visit [facility] [address] [place] [address] [place] [address] Efrain Melgar DO 22 [place] [address] [email or web address] documented as of this encounter Visit Diagnoses [...] documented as of this encounter Care Teams Porter Marina Relationship Specialty Start Date End Date Giovanna Garcia NP [email or web address] PCP - General Family Medicine 11/15/17 08/22/23 Unknown, Daxa, PCP - General 08/23/23 03/07/24 Hayley Ni MD [facility] [place] [address] PCP - General Internal Medicine 03/08/24 Geronimo Beltran MD [address] [place] [address] [email or web address] Insurance Assigned Provider 09/19/20 06/17/23 Emely Barnes, ABE [address] [place] [address] [email or web address] iCMP Elementary Ell Teacher 07/27/21 08/10/21 documented as of this encounter Additional Source Comments The information contained in this document represents components of the legal health record. It is not the complete legal health record.[facility]
--- OUTSIDE RECORDS SUMMARY | 2025-03-10 15:49 | XMS_ITS | Encounter Summary ---
Author Organization [facility] Address [address] [facility] [address] [place] [address] Phone Care Team Providers Care Television Operator Name Role Phone Giovanna Garcia BARTENDER MANAGER Primary Care Provider [phone] Geronimo Beltran MD Unavailable [phone] Emely Barnes RN Unavailable [phone] Unknown, Unknown Primary Care Provider Hayley Couch MD Primary Care Provider Encounter Details Date Type Department Care Team (Late st Contact Info) Description 04/21/2020 Transcribe Orders [facility] [address] [place] [address] Ian Anderson MD, [place] [address] [id number] [email or web address] Social History Tobacco Use Types Packs/Day Years [...] PM EST Office Visit [facility] [address] [place] [address] Efrain Melgar DO 22 [place] [address] [email or web address] documented as of this encounter Visit Diagnoses [...] documented as of this encounter Care Teams Television Operator Relationship Specialty Start Date End Date Giovanna Garcia NP PCP - General Family Medicine 11/15/17 08/22/23 Unknown, Daxa, MD PCP - General 08/23/23 03/07/24 Hayley Ni MD [address] [facility] [place] [address] PCP - General Internal Medicine 03/08/24 Geronimo Beltran MD [address] [place] [address] [email or web address] Insurance Assigned Provider 09/19/20 06/17/23 Emely Barnes, RN [address] [place] [address] [email or web address] iCMP Curriculum Developer 07/27/21 08/10/21 documented as of this encounter Additional Source Comments The information contained in this document represents components of the legal health record. It is not the complete legal health record.[facility]
--- OUTSIDE RECORDS SUMMARY | 2025-03-10 15:49 | XMS_ITS | Encounter Summary ---
Author Organization [facility] Address [address] [facility] [address] [place] [address] Phone Care Team Providers Care Court Security Officer Name Role Phone Giovanna Garcia NP Primary Care Provider [phone] Geronimo Beltran MD Unavailable [phone] Emely Barnes RN Unavailable [phone] Unknown, Unknown Primary Care Provider Hayley Couch MD Primary Care Provider Encounter Details Date Type Department Care Team (Late st Contact Info) Description 09/10/2018 Procedure Pass [facility], [address] [address] Social History Tobacco Use Types Packs/Day Years [...] PM EST Office Visit [facility] [address] [place] [address] Efrain Melgar DO [address] [place] [address] [email or web address] documented as of this encounter Visit Diagnoses [...] documented as of this encounter Care Teams Court Security Officer Relationship Specialty Start Date End Date Giovanna Garcia CUSTODIAL FOREMAN [email or web address] PCP - General Family Medicine 11/15/17 08/22/23 Unknown, Daxa, MD PCP - General 08/23/23 03/07/24 Hayley Ni MD [facility] [place] [address] PCP - General Internal Medicine 03/08/24 Geronimo Beltran MD [address] [place] [address] [email or web address] Insurance Assigned Provider 09/19/20 06/17/23 Emely Barnes, RN [address] [place] [address] [email or web address] iCMP Plugging Machine Operator 07/27/21 08/10/21 documented as of this encounter Additional Source Comments The information contained in this document represents components of the legal health record. It is not the complete legal health record.[facility]
--- OUTSIDE RECORDS SUMMARY | 2025-03-10 15:49 | XMS_ITS | Encounter Summary ---
Author Organization [facility] Address [address] [facility] [address] [place] [address] Phone Care Team Providers Care Gas Shovel Operator Name Role Phone Geronimo Beltran MD Primary Care Provider [phone] Giovanna Garcia NP Primary Care Provider [phone] Geronimo Beltran MD Unavailable [phone] Emely Barnes RN Unavailable [phone] Unknown, Unknown Primary Care Provider Hayley Couch MD Primary Care Provider Encounter Details Date Type Department Care Team (Late Contact Info) Description 10/12/2017 Procedure Pass [facility], Ct Scan - [address] [address] Social History Tobacco Use Types Packs/Day Years [...] PM EST Office Visit [facility] 22 [place] [address] Efrain Melgar DO 22 [place] [address] [email or web address] documented as of this encounter Visit Diagnoses [...] documented as of this encounter Care Teams Gas Shovel Operator Relationship Specialty Start Date End Date Geronimo Beltran MD [address] [place] [address] [email or web address] PCP - General Internal Medicine 09/08/17 11/14/17 Giovanna Garcia NP [address] [place] [address] [email or web address] PCP - General Family Medicine 11/15/17 08/22/23 Unknown, Daxa, PCP - General 08/23/23 03/07/24 Hayley Ni MD [address] [place] [address] [place] [address] PCP - General Internal Medicine 03/08/24 Geronimo Beltran MD [address] [place] [address] [email or web address] Insurance Assigned Provider 09/19/20 06/17/23 Emely Barnes, RN [address] [place] [address] [email or web address] iCMP Board Of Education Secretary 07/27/21 08/10/21 documented as of this encounter Additional Source Comments The information contained in this document represents components of the legal health record. It is not the complete legal health record.[facility]
--- OUTSIDE RECORDS SUMMARY | 2025-03-10 15:49 | XMS_ITS | Encounter Summary ---
Author Organization [facility] Address [address] [facility] [address] [place] [address] Phone Care Team Providers Care Supervisor Warping Department Name Role Phone Giovanna Garcia NP Primary Care Provider [phone] Geronimo Beltran MD Unavailable [phone] Emely Barnes RN Unavailable [phone] Unknown, Unknown Primary Care Provider Hayley Couch MD Primary Care Provider Encounter Details Date Type Department Care Team (Late st Contact Info) Description 09/30/2020 Procedure Pass [facility], Ct Scan - [address] [address] Social History Tobacco Use Types Packs/Day Years [...] 1:40 PM EST Office Visit [facility] [place] [address] [place] [address] [email or web address] documented as of this encounter Visit Diagnoses [...] documented as of this encounter Care Teams Supervisor Warping Department Relationship Specialty Start Date End Date Giovanna Garcia NP [email or web address] PCP - General Family Medicine 11/15/17 08/22/23 Unknown, Unknown, PCP - General 08/23/23 03/07/24 Hayley Ni MD [facility] [place] [address] PCP - General Internal Medicine 03/08/24 Geronimo Beltran MD [address] [place] [address] [email or web address] Insurance Assigned Provider 09/19/20 06/17/23 Emely Barnes, RN [address] [place] [address] iCMP Cable Strander 07/27/21 08/10/21 documented as of this encounter Additional Source Comments The information contained in this document represents components of the legal health record. It is not the complete legal health record.[facility]
--- OUTSIDE RECORDS SUMMARY | 2025-03-10 15:49 | XMS_ITS | Encounter Summary ---
Author Organization [facility] Address [address] [place] [address] Phone Care Team Providers Care Maxillofacial Surgeon Name Role Phone Giovanna Garcia NP Primary Care Provider [phone] Geronimo Beltran MD Unavailable [phone] Unknown, Unknown Primary Care Provider Hayley Couch MD Primary Care Provider Encounter Details Date Type Department Care Team (Late st Contact Info) Description 02/25/2022 Procedure Pass [facility] 30 [place] [address] Social History Tobacco Use Types Packs/Day Years [...] high school, GED, job training, learning the Gibraltarian language, technical skills, or developing parenting skills)? [...] 1:40 PM EST Office Visit [facility] [address] [place] [address] Efrain Melgar DO [address] [place] [address] documented as of this encounter Visit Diagnoses Not on filedocumented in this encounter Additional Health Concerns Infection Onset Date Last Indicated Resolved Time CoV-Risk 03/29/2022 03/29/2022 04/09/2022 1:22 AM EDT Assessment Noted Time PHQ-2 Depression Total Score: 2 08/11/19 9:20 AM EST documented as of this encounter Care Teams Maxillofacial Surgeon Relationship Specialty Start Date End Date Giovanna Garcia, DRAGLINE MECHANIC PCP - General Family Medicine 11/15/17 08/22/23 Unknown, Unknown, MD PCP - General 08/23/23 03/07/24 Hayley Ni MD [address] [place] [address] [place] [address] PCP - General Internal Medicine 03/08/24 Geronimo Beltran MD [address] [place] [address] [email or web address] Insurance Assigned Provider 09/19/20 06/17/23 documented as of this encounter Additional Source Comments The information contained in this document represents components of the legal health record. It is not the complete legal health record.[facility]
--- OUTSIDE RECORDS SUMMARY | 2025-03-10 15:49 | XMS_ITS | Encounter Summary ---
Author Organization [facility] Address [address] [facility] [address] [place] [address] Phone Care Team Providers Care Chief Green Officer Name Role Phone Giovanna Garcia NP Primary Care Provider [phone] Geronimo Beltran MD Unavailable [phone] Emely Barnes RN Unavailable [phone] Unknown, Unknown Primary Care Provider Hayley Couch MD Primary Care Provider Encounter Details Date Type Department Care Team (Late Contact Info) Description 09/24/2020 Procedure Pass [facility] 30 [place] [address] Social History Tobacco Use Types Packs/Day Years [...] PM EST Office Visit [facility] [address] [place] [address] [place] [address] [email or web address] documented as of this encounter Visit [...] as of this encounter Care Teams Chief Green Officer Relationship Specialty Start Date End Date Giovanna Garcia NP [email or web address] PCP - General Family Medicine 11/15/17 08/22/23 Unknown, Daxa, PCP - General 08/23/23 03/07/24 Hayley Ni MD [facility] [place] [address] PCP - General Internal Medicine 03/08/24 Geronimo Beltran MD [address] [place] [address] [email or web address] Insurance Assigned Provider 09/19/20 06/17/23 Emely Barnes, ABE [address] [place] [phone] iCMP Musical Instrument Maker Or Repairer 07/27/21 08/10/21 documented as of this encounter Additional Source Comments The information contained in this document represents components of the legal health record. It is not the complete legal health record.[facility]
--- OUTSIDE RECORDS SUMMARY | 2025-03-10 15:49 | XMS_ITS | Encounter Summary ---
Author Organization [facility] Address [address] [place] [address] Phone Care Team Providers Care Fiber Worker Name Role Phone Giovanna Garcia NP Primary Care Provider [phone] Geronimo Beltran MD Unavailable [phone] Emely Barnes RN Unavailable [phone] Unknown, Unknown Primary Care Provider Hayley Couch MD Primary Care Provider Encounter Details Date Type Department Care Team (Late st Contact Info) Description 06/02/2020 Procedure Pass [facility], Ct Scan - [address] [address] Social History Tobacco Use Types Packs/Day Years [...] 3:39 PM EST Justino España RN * [place] Suicide Severity Rating Scale (Screener/Recent Self-Report) Question [...] PM EST Office Visit [facility] [address] [place] [address] Efrain Melgar DO [address] [place] [address] documented as of this encounter Visit Diagnoses [...] documented as of this encounter Care Teams Fiber Worker Relationship Specialty Start Date End Date Giovanna Garcia PACKER OPERATOR AUTOMATIC PCP - General Family Medicine 11/15/17 08/22/23 Unknown, Unknown, MD PCP - General 08/23/23 03/07/24 Hayley Ni MD [address] [place] [address] [place] [address] PCP - General Internal Medicine 03/08/24 Geronimo Beltran MD [address] [place] [address] [email or web address] Insurance Assigned Provider 09/19/20 06/17/23 Emely Barnes, RN [address] [place] [address] [email or web address] iCMP Special Education Itinerant Teacher 07/27/21 08/10/21 documented as of this encounter Additional Source Comments The information contained in this document represents components of the legal health record. It is not the complete legal health record.[facility]
--- OUTSIDE RECORDS SUMMARY | 2025-03-10 15:49 | XMS_ITS | Encounter Summary ---
Author Organization [facility] Address [address] [facility] [address] [place] [address] Phone Care Team Providers Care Waitress Name Role Phone Giovanna Garcia NP Primary Care Provider [phone] Geronimo Beltran MD Unavailable [phone] Emely Barnes RN Unavailable [phone] Unknown, Unknown Primary Care Provider Hayley Couch MD Primary Care Provider Encounter Details Date Type Department Care Team (Late st Contact Info) Description 04/07/2020 Procedure Pass Non-Invasive [facility]iology [address] [place] [address] Social History Tobacco Use Types Packs/Day Years [...] PM EST Office Visit [facility] [address] [place] [address] Efrain Melgar DO 22 [place] [address] [email or web address] documented as of this encounter Visit Diagnoses [...] documented as of this encounter Care Teams Waitress Relationship Specialty Start Date End Date Giovanna Garcia NP [email or web address] PCP - General Family Medicine 11/15/17 08/22/23 Unknown, Unknown, PCP - General 08/23/23 03/07/24 aHyley Ni MD [facility] [place] [address] PCP - General Internal Medicine 03/08/24 Geronimo Beltran MD [address] [place] [address] Insurance Assigned Provider 09/19/20 06/17/23 Emely Barnes, RN [address] [place] [address] [facility] 07/27/21 08/10/21 documented as of this encounter Additional Source Comments The information contained in this document represents components of the legal health record. It is not the complete legal health record.[facility]
--- OUTSIDE RECORDS SUMMARY | 2025-03-10 15:49 | XMS_ITS | Encounter Summary ---
Author Organization [facility] Address [address] [facility] [address] [place] [address] Phone Care Team Providers Care Access Liaison Name Role Phone Giovanna Garcia NP Primary Care Provider [phone] Geronimo Beltran MD Unavailable [phone] Emely Barnes RN Unavailable [phone] Unknown, Unknown Primary Care Provider Hayley Couch MD Primary Care Provider Encounter Details Date Type Department Care Team (Late st Contact Info) Description 03/17/2020 Procedure Pass [facility], [address] [address] Social History Tobacco Use Types Packs/Day Years [...] 1:40 PM EST Office Visit [facility] [address] Efrain Melgar DO 22 [place] [address] [email or web address] documented as of this encounter Visit Diagnoses [...] documented as of this encounter Care Teams Access Liaison Relationship Specialty Start Date End Date Giovanna Garcia NP [email or web address] PCP - General Family Medicine 11/15/17 08/22/23 Unknown, Unknown, MD PCP - General 08/23/23 03/07/24 Hayley Ni MD [facility] [place] [address] PCP - General Internal Medicine 03/08/24 Geronimo Beltran MD [address] [place] [address] [email or web address] Insurance Assigned Provider 09/19/20 06/17/23 Emely Barnes, ABE [address] [place] [address] [email or web address] iCMP Milling Machinist 07/27/21 08/10/21 documented as of this encounter Additional Source Comments The information contained in this document represents components of the legal health record. It is not the complete legal health record.[facility]
--- OUTSIDE RECORDS SUMMARY | 2025-03-10 15:49 | XMS_ITS | Encounter Summary ---
Author Organization [facility] Address [address] [place] [address] Phone Care Team Providers Care Manager Generation Name Role Phone Giovanna Garcia NP Primary Care Provider [phone] Geronimo Beltran MD Unavailable [phone] Unknown, Unknown Primary Care Provider Hayley Couch MD Primary Care Provider Encounter Details Date Type Department Care Team (Late st Contact Info) Description 11/02/2021 Procedure Pass Non-Invasive Cardiology [address] [place] [id number] Social History Tobacco Use Types Packs/Day Years [...] high school, GED, job training, learning the [place] language, technical skills, or developing parenting skills)? [...] 1:40 PM EST Office Visit [facility] [address] [place] [address] Efrain Melgar DO 22 [place] [address] documented as of this encounter Visit Diagnoses Not on filedocumented in this encounter Additional Health Concerns Infection Onset Date Last Indicated Resolved Time CoV-Risk 03/29/2022 03/29/2022 04/09/2022 1:22 AM EDT Assessment Noted Time PHQ-2 Depression Total Score: 2 08/11/19 22 9:20 AM EST documented as of this encounter Care Teams Manager Generation Relationship Specialty Start Date End Date Giovanna Garcia, SUPERVISOR MACHINE SETTER PCP - General Family Medicine 11/15/17 08/22/23 Unknown, Unknown, MD PCP - General 08/23/23 03/07/[address] [facility] [place] [address] PCP - General Internal Medicine 03/08/24 Geronimo Beltran MD [address] [place] [address] [email or web address] Insurance Assigned Provider 09/19/20 06/17/23 documented as of this encounter Additional Source Comments The information contained in this document represents components of the legal health record. It is not the complete legal health record.[facility]
--- OUTSIDE RECORDS SUMMARY | 2025-03-10 15:49 | XMS_ITS | Encounter Summary ---
Author Organization [facility] Address [address] [facility] [address] [place] [address] Phone Care Team Providers Care Deposit Clerk Name Role Phone Giovanna Garcia NP Primary Care Provider [phone] Geronimo Beltran MD Unavailable [phone] Emely Barnes RN Unavailable [phone] Unknown, Unknown Primary Care Provider Hayley Couch MD Primary Care Provider Encounter Details Date Type Department Care Team (Late st Contact Info) Description 09/27/2018 Procedure Pass [facility], [address] [address] Social History Tobacco Use Types Packs/Day Years [...] PM EST Office Visit [facility] [address] [place] [address] Efrain Melgar DO [address] [place] [address] [email or web address] documented as of this encounter [...] documented as of this encounter Care Teams Deposit Clerk Relationship Specialty Start Date End Date Giovanna Garcia SURGERY TECH [email or web address] PCP - General Family Medicine 11/15/17 08/22/23 Unknown, Daxa, MD PCP - General 08/23/23 03/07/24 Hayley Ni MD [facility] [place] [address] PCP - General Internal Medicine 03/08/24 Geronimo Beltran MD [address] [place] [address] [email or web address] Insurance Assigned Provider 09/19/20 06/17/23 Emely Barnes, RN [address] [place] [address] [email or web address] iCMP Plan Rep 07/27/21 08/10/21 documented as of this encounter Additional Source Comments The information contained in this document represents components of the legal health record. It is not the complete legal health record.[facility]
--- OUTSIDE RECORDS SUMMARY | 2025-03-10 15:49 | XMS_ITS | Encounter Summary ---
Author Organization [facility] Address [address] [facility] [address] [place] [address] Phone Care Team Providers Care Leasing Manager Name Role Phone Giovanna Garcia BIOLOGY TUTOR Primary Care Provider [phone] Geronimo Beltran MD Primary Care Provider [phone] Giovanna Garcia BIOLOGY TUTOR Primary Care Provider [phone] Geronimo Beltran MD Unavailable [phone] Emely Barnes RN Unavailable [phone] Unknown, Unknown Primary Care Provider Hayley Couch MD Primary Care Provider Encounter Details Date Type Department Care Team (Late st Contact Info) Description 09/05/2017 Procedure Pass OR Admitting Dept - Virtual Department [address] [place] [address] Social History Tobacco Use Types Packs/Day Years [...] PM EST Office Visit [facility] [address] [place] [address] Efrain Melgar DO 22 [place] [address] documented as of this encounter Visit Diagnoses [...] documented as of this encounter Care Teams Leasing Manager Relationship Specialty Start Date End Date Giovanna Garcia NP PCP - General Family Medicine 08/18/17 09/07/17 Geronimo Beltran MD 40 [place] [address] [email or web address] PCP - General Internal Medicine 09/08/17 11/14/17 Giovanna Garcia NP PCP - General Family Medicine 11/15/17 08/22/23 Unknown, Daxa, PCP - General 08/23/23 03/07/24 Hayley Ni MD [facility] [place] [address] PCP - General Internal Medicine 03/08/24 Geronimo Beltran MD [address] [place] [address] [email or web address] Insurance Assigned Provider 09/19/20 06/17/23 Emely Barnes, RN [address] [place] [address] [email or web address] iCMP Supervisor [employer] 07/27/21 08/10/21 documented as of this encounter Additional Source Comments The information contained in this document represents components of the legal health record. It is not the complete legal health record.[facility]
--- OUTSIDE RECORDS SUMMARY | 2025-03-10 15:49 | XMS_ITS | Encounter Summary ---
Author Organization [facility] Address [address] [facility] [address] [place] [address] Phone Care Team Providers Care Head Screen Worker Name Role Phone Geronimo Beltran MD Primary Care Provider [phone] Giovanna Garcia NP Primary Care Provider [phone] Geronimo Beltran MD Unavailable [phone] Emely Barnes RN Unavailable [phone] Unknown, Unknown Primary Care Provider Hayley Couch MD Primary Care Provider Encounter Details Date Type Department Care Team (Late st Contact Info) Description 09/08/2017 Procedure Pass [facility], Ct Scan - [address] [address] Social History Tobacco Use Types Packs/Day Years [...] PM EST Office Visit [facility] [address] [place] [address] Efrain Melgar DO [address] [place] [address] [email or web address] documented as of this [...] documented as of this encounter Care Teams Head Screen Worker Relationship Specialty Start Date End Date Geronimo Beltran MD [address] [place] [address] [email or web address] PCP - General Internal Medicine 09/08/17 11/14/17 Giovanna Garcia, XM1 TANK DRIVER [address] [place] [address] [email or web address] PCP - General Family Medicine 11/15/17 08/22/23 Unknown, Daxa, MD PCP - General 08/23/23 03/07/24 Hayley Ni MD [address] [place] [address] [place] [address] PCP - General Internal Medicine 03/08/24 Geronimo Beltran MD [address] [place] [address] [email or web address] Insurance Assigned Provider 09/19/20 06/17/23 Emely Barnes, RN 10 [place] [address] [email or web address] iCMP Road Inspector 07/27/21 08/10/21 documented as of this encounter Additional Source Comments The information contained in this document represents components of the legal health record. It is not the complete legal health record.[facility]
--- OUTSIDE RECORDS SUMMARY | 2025-03-10 15:49 | XMS_ITS | Encounter Summary ---
Author Organization [facility] Address [address] [place] [address] Phone Care Team Providers Care Straightener Hand Name Role Phone Giovanna Garcia NP Primary Care Provider [phone] Geronimo Beltran MD Unavailable [phone] Emely Barnes RN Unavailable [phone] Unknown, Unknown Primary Care Provider Hayley Couch MD Primary Care Provider Reason for Referral * MRI/CAT Scan - Closed Specialty Diagnoses / Procedures Referred By Braulio t Referred To Contact Procedures CT Neck Outside (No Interpretation) System, Provider Not In, PhD [address] [address] Referral ID Status Reason Start Date Expiration Date Visits Re quested Visits Authorized [id number] Closed 10/04/2018 10/04/2019 1 1 Encounter Details Date Type Department Care Team (Late st Contact Info) Description 10/04/2018 Ancillary Orders [facility],Outside Imaging [address] [place], [place] [id number] System, Provider Not In, PhD [facility] [address] [address] Social History Tobacco Use Types Packs/Day Years [...] PM EST Office Visit [facility] [address] [place] [address] Efrain Melgar DO [address] [place] [address] [email or web address] documented as of this encounter Results * [...] documented as of this encounter Care Teams Straightener Hand Relationship Specialty Start Date End Date Giovanna Garcia NP [email or web address] PCP - General Family Medicine 11/15/17 08/22/23 Unknown, Unknown, MD PCP - General 08/23/23 03/07/24 Hayley Ni MD [address] [place] [address] [place] [address] PCP - General Internal Medicine 03/08/24 Geronimo Beltran MD [address] [place] [address] [email or web address] Insurance Assigned Provider 09/19/20 06/17/23 Emely Barnes, RN [address] [place] [address] [email or web address] iCMP Entry Specialist 07/27/21 08/10/21 documented as of this encounter Additional Source Comments The information contained in this document represents components of the legal health record. It is not the complete legal health record.[facility]
--- OUTSIDE RECORDS SUMMARY | 2025-03-10 15:49 | XMS_ITS | Encounter Summary ---
Author Organization [facility] Address [address] [facility] [address] [place] [address] Phone Care Team Providers Care Music Ministries Director Name Role Phone Giovanna Garcia NP Primary Care Provider [phone] Geronimo Beltran MD Unavailable [phone] Emely Barnes RN Unavailable [phone] Unknown, Unknown Primary Care Provider Hayley Couch MD Primary Care Provider Encounter Details Date Type Department Care Team (Late Contact Info) Description 09/30/2020 Procedure Pass [facility] [address] [place] [address] Social History Tobacco Use Types Packs/Day Years [...] PM EST Office Visit [facility] [address] [place] [address] [place] [address] [email or web address] documented as of [...] documented as of this encounter Care Teams Music Ministries Director Relationship Specialty Start Date End Date Giovanna Garcia NP [email or web address] PCP - General Family Medicine 11/15/17 08/22/23 Unknown, Daxa, PCP - General 08/23/23 03/07/24 Hayley Ni MD [facility] [place] [address] PCP - General Internal Medicine 03/08/24 Geronimo Beltran MD [address] [place] [address] [email or web address] Insurance Assigned Provider 09/19/20 06/17/23 Emely Barnes, ABE [address] [place] [address] iCMP Drop Clipper 07/27/21 08/10/21 documented as of this encounter Additional Source Comments The information contained in this document represents components of the legal health record. It is not the complete legal health record.[facility]
--- OUTSIDE RECORDS SUMMARY | 2025-03-10 15:49 | XMS_ITS | Encounter Summary ---
Author Organization [facility] Address [address] [place] [address] Phone Care Team Providers Care Set Up Mechanic Automatic Line Name Role Phone Givoanna Garcia NP Primary Care Provider [phone] Geronimo Beltran MD Unavailable [phone] Unknown, Unknown Primary Care Provider Hayley Couch MD Primary Care Provider Encounter Details Date Type Department Care Team (Late st Contact Info) Description 02/24/2022 Procedure Pass [facility] [address] [place] [address] Social History Tobacco Use Types Packs/Day Years [...] high school, GED, job training, learning the Marshallese language, technical skills, or developing parenting skills)? [...] 1:40 PM EST Office Visit [facility] [address] [place] [address] Efrain Melgar DO [address] [place] [address] documented as of this encounter Visit Diagnoses Not on filedocumented in this encounter Additional Health Concerns Infection Onset Date Last Indicated Resolved Time CoV-Risk 03/29/2022 03/29/2022 04/09/2022 1:22 AM EDT Assessment Noted Time PHQ-2 Depression Total Score: 2 08/11/19 9:20 AM EST documented as of this encounter Care Teams Set Up Mechanic Automatic Line Relationship Specialty Start Date End Date Giovanna Garcia, SVP [employer]GRAM[employer] PCP - General Family Medicine 11/15/17 08/22/23 Unknown, Unknown, MD PCP - General 08/23/23 03/07/24 Hayley Ni MD [address] [place] [address] [place] [address] PCP - General Internal Medicine 03/08/24 Geronimo Beltran MD [address] [place] [address] [email or web address] Insurance Assigned Provider 09/19/20 06/17/23 documented as of this encounter Additional Source Comments The information contained in this document represents components of the legal health record. It is not the complete legal health record.[facility]
--- OUTSIDE RECORDS SUMMARY | 2025-03-10 15:49 | XMS_ITS | Encounter Summary ---
Author Organization [facility] Address [address] [facility] [address] [place] [address] Phone Care Team Providers Care Radio Despatcher Name Role Phone Giovanna Garcia NP Primary Care Provider [phone] Geronimo Beltran MD Unavailable [phone] Emely Barnes RN Unavailable [phone] Unknown, Unknown Primary Care Provider Hayley Couch MD Primary Care Provider Encounter Details Date Type Department Care Team (Late st Contact Info) Description 03/27/2020 Procedure Pass [facility], [address] [address] Social History Tobacco Use Types Packs/Day Years [...] 1:40 PM EST Office Visit [facility] [place] [address] Efrain Melgar DO 22 [place] [address] [email or web address] [...] documented as of this encounter Care Teams Radio Despatcher Relationship Specialty Start Date End Date Giovanna Garcia NP [email or web address] PCP - General Family Medicine 11/15/17 08/22/23 Unknown, Unknown, PCP - General 08/23/23 03/07/24 Hayley Ni MD [address] [facility] [place] [address] PCP - General Internal Medicine 03/08/24 Geronimo Beltran MD [address] [place] [address] [email or web address] Insurance Assigned Provider 09/19/20 06/17/23 Emely Barnes, RN [address] [place] [address] [email or web address] iCMP Director Park 07/27/21 08/10/21 documented as of this encounter Additional Source Comments The information contained in this document represents components of the legal health record. It is not the complete legal health record.[facility]
--- OUTSIDE RECORDS SUMMARY | 2025-03-10 15:49 | XMS_ITS | Encounter Summary ---
Author Organization [facility] Address [address] [facility] [address] [place] [address] Phone Care Team Providers Care Hotel Maintenance Worker Name Role Phone Giovanna Garcia NP Primary Care Provider [phone] Geronimo Beltran MD Unavailable [phone] Emely Barnes RN Unavailable [phone] Unknown, Unknown Primary Care Provider Hayley Couch MD Primary Care Provider Encounter Details Date Type Department Care Team (Late st Contact Info) Description 04/01/2020 Procedure Pass Non-Invasive Cardiology [address] [place] [address] Social History Tobacco Use Types Packs/Day Years [...] PM EST Office Visit [facility] [address] [place] [address] Efrain Melgar DO 22 [place] [address] [email or web address] documented as of this encounter [...] documented as of this encounter Care Teams Hotel Maintenance Worker Relationship Specialty Start Date End Date Giovanna Garcia NP [email or web address] PCP - General Family Medicine 11/15/17 08/22/23 Unknown, Unknown, PCP - General 08/23/23 03/07/24 Hayley Ni MD [facility] [place] [address] PCP - General Internal Medicine 03/08/24 Geronimo Beltran MD [address] [place] [address] Insurance Assigned Provider 09/19/20 06/17/23 Emely Barnes, RN [address] [place] [address] [facility] 07/27/21 08/10/21 documented as of this encounter Additional Source Comments The information contained in this document represents components of the legal health record. It is not the complete legal health record.[facility]
--- OUTSIDE RECORDS SUMMARY | 2025-03-10 15:50 | XMS_ITS | Encounter Summary ---
Author Organization [facility] Address [address] [facility] [address] [place] [address] Phone Care Team Providers Care Production Editor Name Role Phone Giovanna Garcia NP Primary Care Provider [phone] Geronimo Beltran MD Unavailable [phone] Emely Barens RN Unavailable [phone] Unknown, Unknown Primary Care Provider Hayley Couch MD Primary Care Provider Encounter Details Date Type Department Care Team (Late st Contact Info) Description 03/13/2020 Procedure Pass [facility] 30 [place] [address] Social History Tobacco Use Types Packs/Day Years [...] 1:40 PM EST Office Visit [facility] [place] [address] Efrain Melgar DO 22 [place] [address] [email or web address] documented as of this encounter Visit Diagnoses [...] as of this encounter Care Teams Production Editor Relationship Specialty Start Date End Date Giovanna Garcia NP [email or web address] PCP - General Family Medicine 11/15/17 08/22/23 Unknown, Unknown, PCP - General 08/23/23 03/07/24 Hayley Ni MD [address] [facility] [place] [address] PCP - General Internal Medicine 03/08/24 Geronimo Beltran MD [address] [place] [address] [email or web address] Insurance Assigned Provider 09/19/20 06/17/23 Emely Barnes, ABE [address] [place] [address] [email or web address] iCMP Flask Maker 07/27/21 08/10/21 documented as of this encounter Additional Source Comments The information contained in this document represents components of the legal health record. It is not the complete legal health record.[facility]
--- OUTSIDE RECORDS SUMMARY | 2025-03-10 15:50 | XMS_ITS | Encounter Summary ---
Author Organization [facility] Address [address] [place] [address] Phone Care Team Providers Care Director Of Global Marketing Name Role Phone Giovanna Garcia NP Primary Care Provider [phone] Geronimo Beltran MD Unavailable [phone] Emely Barnes RN Unavailable [phone] Unknown, Unknown Primary Care Provider Hayley Couch MD Primary Care Provider Encounter Details Date Type Department Care Team (Late st Contact Info) Description 08/10/2021 Procedure Pass [address] [place] [address] Social History Tobacco Use Types Packs/Day Years [...] high school, GED, job training, learning the [place]uvian language, technical skills, or developing parenting skills)? [...] PM EST Office Visit [facility] [address] [place] [address] Efrain Melgar DO [address] [place] [address] documented as of this encounter Visit Diagnoses Not on filedocumented in this encounter Additional Health Concerns Infection Onset Date Last Indicated Resolved Time CoV-Risk 03/29/2022 03/29/2022 04/09/2022 1:22 AM EDT Assessment Noted Time PHQ-2 Depression Total Score: 2 08/11/19 22 9:20 AM EST documented as of this encounter Care Teams Director Of Global Marketing Relationship Specialty Start Date End Date Giovanna Garcia, VEGETABLE II FARMWORKER [email or web address] PCP - General Family Medicine 11/15/17 08/22/23 Unknown, Daxa, MD PCP - General 08/23/23 03/07/24 Hayley Ni MD [address] [place] [address] [place] [address] PCP - General Internal Medicine 03/08/24 Geronimo Beltran MD [address] [place] [address] [email or web address] Insurance Assigned Provider 09/19/20 06/17/23 Emely Barnes, RN [address] [place] [address] [email or web address] iCMP Repair Operator 07/27/21 08/10/21 documented as of this encounter Additional Source Comments The information contained in this document represents components of the legal health record. It is not the complete legal health record.[facility]
--- OUTSIDE RECORDS SUMMARY | 2025-03-10 15:50 | XMS_ITS | Encounter Summary ---
Author Organization [facility] Address [address] [facility] [address] [place] [address] Phone Care Team Providers Care Shoe Coverer Name Role Phone Giovanna Garcia NP Primary Care Provider [phone] Geronimo Beltran MD Unavailable [phone] Emely Barnes RN Unavailable [phone] Unknown, Unknown Primary Care Provider Hayley Couch MD Primary Care Provider Reason for Referral * MRI/CAT Scan - Closed Specialty Diagnoses / Procedures Referred By Braulio sheehan Referred To Contact Radiology Diagnoses White matter disease, unspecified Numbness Procedures MRI Thoracic Spine Efrain Elliott MD Phone: tel: fax: [email or web address] Referral ID Status Reason Start Date Expiration Date Visits Re quested Visits Authorized [id number] Closed 03/17/2020 03/17/2021 1 1 Encounter Details Date Type Department Care Team (Latest Contact Info) Description 03/17/2020 Transcribe Orders Virtual Department [address] [place] [address] Efrain Elliott MD [address] [place] [address], [address] [place], [place] [phone] [email or web address] White matter disease, unspecified (Primary [...] PM EST Office Visit [facility] [address] [place] [address] Efrain Melgar DO [address] [place] [address] [email or web address] documented as of this encounter Results * [...] 3. No disc protrusion or stenosis. POS [id number] Narrative 03/26/2020 9:49 AM EDT TECHNIQUE: 1.5 [...] 3. No disc protrusion or stenosis. POS [id number] Efrain Elliott MD IMG MR XSPECIALTY Final [...] as of this encounter Care Teams Shoe Coverer Relationship Specialty Start Date End Date Giovanna Garcia NP [email or web address] PCP - General Family Medicine 11/15/17 08/22/23 Unknown, Daxa, PCP - General 08/23/23 03/07/24 Hayley Ni MD [facility] [place] [address] PCP - General Internal Medicine 03/08/24 Geronimo Beltran MD [address] [place] [address] [email or web address] Insurance Assigned Provider 09/19/20 06/17/23 Emely Barnes, ABE [address] [place] [address] [email or web address] iCMP Generating Station Mechanic 07/27/21 08/10/21 documented as of this encounter Additional Source Comments The information contained in this document represents components of the legal health record. It is not the complete legal health record.[facility]
--- OUTSIDE RECORDS SUMMARY | 2025-03-10 15:50 | XMS_ITS | Encounter Summary ---
Author Organization [facility] Address [address] [facility] [address] [place] [address] Phone Care Team Providers Care Script Artist Name Role Phone Giovanna Garcia NP Primary Care Provider [phone] Geronimo Beltran MD Unavailable [phone] Emely Barnes RN Unavailable [phone] Unknown, Unknown Primary Care Provider Hayley Couch MD Primary Care Provider Encounter Details Date Type Department Care Team (Late st Contact Info) Description 02/16/2021 Procedure Pass Non-Invasive Cardiology [address] [place] [address] Social History Tobacco Use Types Packs/Day Years [...] PM EST Office Visit [facility] [address] [place] [address] Efrain Melgar DO 22 [place] [address] [email or web address] documented as [...] documented as of this encounter Care Teams Script Artist Relationship Specialty Start Date End Date Giovanna Garcia NP [email or web address] PCP - General Family Medicine 11/15/17 08/22/23 Unknown, Unknown, PCP - General 08/23/23 03/07/24 Hayley Ni MD [facility] [place] [address] PCP - General Internal Medicine 03/08/24 Geronimo Beltran MD [address] [place] [address] [email or web address] Insurance Assigned Provider 09/19/20 06/17/23 Emely Barnes, ABE [address] [place] [address] iCMP Apron Operator 07/27/21 08/10/21 documented as of this encounter Additional Source Comments The information contained in this document represents components of the legal health record. It is not the complete legal health record.[facility]
--- OUTSIDE RECORDS SUMMARY | 2025-03-10 15:50 | XMS_ITS | Encounter Summary ---
Author Organization [facility] Address [address] [place] [address] Phone Care Team Providers Care Admissions Recruiter Name Role Phone Giovanna Garcia NP Primary Care Provider [phone] Geronimo Beltran MD Unavailable [phone] Unknown, Unknown Primary Care Provider Hayley Couch MD Primary Care Provider Encounter Details Date Type Department Care Team (Late st Contact Info) Description 11/02/2021 Ancillary Orders [facility] [address] 3rd Floor, [address] [place] [address] Patrice Quintero MD [address] [place] [phone] [email or web address] Social History Tobacco Use Types Packs/Day Years [...] high school, GED, job training, learning the [place] language, technical skills, or developing parenting skills)? [...] PM EST Office Visit [facility] [address] [place] [address] Efrain Melgar DO 22 [place] [address] documented as of this encounter Visit Diagnoses Not on filedocumented in this encounter Additional Health Concerns Infection Onset Date Last Indicated Resolved Time CoV-Risk 03/29/2022 03/29/2022 04/09/2022 1:22 AM EDT Assessment Noted Time PHQ-2 Depression Total Score: 2 08/11/19 22 9:20 AM EST documented as of this encounter Care Teams Admissions Recruiter Relationship Specialty Start Date End Date Giovanna Garcia NP [email or web address] PCP - General Family Medicine 11/15/17 08/22/23 Unknown, Unknown, MD PCP - General 08/23/23 03/07/24 Hayley Ni MD [facility] [place] [address] PCP - General Internal Medicine 03/08/24 Geronimo Beltran MD [address] [place] [address] [email or web address] Insurance Assigned Provider 09/19/20 06/17/23 documented as of this encounter Additional Source Comments The information contained in this document represents components of the legal health record. It is not the complete legal health record.[facility]
--- OUTSIDE RECORDS SUMMARY | 2025-03-10 15:50 | XMS_ITS | Encounter Summary ---
Author Organization [facility] Address [address] [place] [address] Phone Care Team Providers Care Underwriting Internship Name Role Phone Giovanna Garcia NP Primary Care Provider [phone] Geronimo Beltran MD Unavailable [phone] Unknown, Unknown Primary Care Provider Hayley Couch MD Primary Care Provider Encounter Details Date Type Department Care Team (Latest Contact Info) Description 11/02/2021 Ancillary Orders Non-Invasive Cardiology [address] [place] [address] Patrice Quintero MD [address] [place] [address] [email or web address] Syncope and collapse; Paroxysmal atrial fibrillation [...] high school, GED, job training, learning the [place]ian language, technical skills, or developing parenting skills)? [...] 1:40 PM EST Office Visit [facility] [address] [place] [address] Efrain Melgar DO 22 [place] [address] documented as of this encounter Results * DEVICE CHECK: ILR IN-HOME INTERROGATION (02/02/2022 12:23 PM EDT) Narrative Radu Denise DO - 02/08/2022 9:50 AM EDT Remote interrogation of implantable loop recorder. 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: [employer] Symptoms: 0 Pauses: 0 Bradycardia: 0 [...] documented as of this encounter Care Teams Underwriting Internship Relationship Specialty Start Date End Date Giovanna Garcia NP PCP - General Family Medicine 11/15/17 08/22/23 Unknown, Unknown, MD PCP - General 08/23/23 03/07/24 Hayley Ni MD [address] [place] [address] [place] [address] PCP - General Internal Medicine 03/08/24 Geronimo Beltran MD [address] [place] [address] [email or web address] Insurance Assigned Provider 09/19/20 06/17/23 documented as of this encounter Additional Source Comments The information contained in this document represents components of the legal health record. It is not the complete legal health record.[facility]
--- OUTSIDE RECORDS SUMMARY | 2025-03-10 15:50 | XMS_ITS | Encounter Summary ---
Author Organization [facility] Address [address] [facility] [address] [place] [address] Phone Care Team Providers Care Domain Architect Name Role Phone Giovanna Garcia NP Primary Care Provider [phone] Geronimo Beltran MD Unavailable [phone] Emely Barnes RN Unavailable [phone] Unknown, Unknown Primary Care Provider Hayley Couch MD Primary Care Provider Encounter Details Date Type Department Care Team (Late st Contact Info) Description 11/16/2020 Procedure Pass Non-Invasive Cardiology [address] [place] [address] Social History Tobacco Use Types Packs/Day Years [...] PM EST Office Visit [facility] [address] [place] [address] Efrain Melgar DO 22 [place] [address] [email or web address] [...] documented as of this encounter Care Teams Domain Architect Relationship Specialty Start Date End Date Giovanna Garcia NP [email or web address] PCP - General Family Medicine 11/15/17 08/22/23 Unknown, Unknown, PCP - General 08/23/23 03/07/24 Hayley Ni MD [facility] [place] [address] PCP - General Internal Medicine 03/08/24 Geronimo Beltran MD [address] [place] [address] [email or web address] Insurance Assigned Provider 09/19/20 06/17/23 Emely Barnes, ABE [address] [place] [address] iC[employer] Nursing Program Director 07/27/21 08/10/21 documented as of this encounter Additional Source Comments The information contained in this document represents components of the legal health record. It is not the complete legal health record.[facility]
--- OUTSIDE RECORDS SUMMARY | 2025-03-10 15:50 | XMS_ITS | Encounter Summary ---
Author Organization [facility] Address [address] [facility] [address] [place] [address] Phone Care Team Providers Care Moto Mix Operator Name Role Phone Giovanna Garcia MOLDER INFLATED BALL Primary Care Provider [phone] Geronimo Beltran MD Unavailable [phone] Emely Barnes RN Unavailable [phone] Unknown, Unknown Primary Care Provider Hayley Couch MD Primary Care Provider Encounter Details Date Type Department Care Team (Late st Contact Info) Description 11/16/2020 Ancillary Orders Non-Invasive Cardiology [address] [place] [address] Patrice Quintero MD 30 [place] [address] [email or web address] Syncope and collapse Social History Tobacco [...] 1:40 PM EST Office Visit [facility] [address] [place] [address] RamónEfrain, DO 22 [place] [address] [email or web address] documented as of this encounter Results * (ABNORMAL) DEVICE CHECK: ILR IN-HOME INTERROGATION (11/16/2020 10:16 AM EDT) Narrative Patrice Quintero MD - 11/23/2020 1:10 PM EDT Remote interrogation of implantable loop recorder. Reason for implant: Syncope Dry Curer: Errund Symptoms: 0 Pauses: 0 Bradycardia: 0 Tachycardia: [...] documented as of this encounter Care Teams Moto Mix Operator Relationship Specialty Start Date End Date Giovanna Garcia NP [email or web address] PCP - General Family Medicine 11/15/17 08/22/23 Unknown, Unknown, MD PCP - General 08/23/23 03/07/24 Hayley Ni MD [facility] [place] [address] PCP - General Internal Medicine 03/08/24 Geronimo Beltran MD [address] [place] [address] [email or web address] Insurance Assigned Provider 09/19/20 06/17/23 Emely Barnes, RN [address] [place] [address] [email or web address] iCMP Horse Rancher 07/27/21 08/10/21 documented as of this encounter Additional Source Comments The information contained in this document represents components of the legal health record. It is not the complete legal health record.[facility]
--- OUTSIDE RECORDS SUMMARY | 2025-03-10 15:50 | XMS_ITS | Encounter Summary ---
Author Organization [facility] Address [address] [facility] [address] [place] [address] Phone Care Team Providers Care Outside Plant Engineer Name Role Phone Giovanna Garcia ALLIGATOR SHEAR OPERATOR Primary Care Provider [phone] Geronimo Beltran MD Unavailable [phone] Emely Barnes RN Unavailable [phone] Unknown, Unknown Primary Care Provider Hayley Couch MD Primary Care Provider Encounter Details Date Type Department Care Team (Late st Contact Info) Description 02/16/2021 Ancillary Orders Non-Invasive Cardiology [address] [place] [address] Patrice Quintero MD 30 [place] [address] [email or web address] Syncope and collapse Social History [...] 1:40 PM EST Office Visit [facility] [address] [place] [address] RamónEfrain, 22 [place] [address] [email or web address] documented as of this encounter Results * DEVICE CHECK: ILR IN-HOME INTERROGATION (02/16/2021 9:45 AM EDT) Narrative Patrice Quintero MD - 02/21/2021 2:58 PM EDT Remote interrogation of implantable loop recorder. 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[employer] [place] Symptoms: 0 Pauses: 0 Bradycardia: 0 Tachycardia: [...] documented as of this encounter Care Teams Outside Plant Engineer Relationship Specialty Start Date End Date Giovanna Garcia NP [email or web address] PCP - General Family Medicine 11/15/17 08/22/23 Unknown, Daxa, PCP - General 08/23/23 03/07/24 Hayley Ni MD [address] [place] [address] [place] [address] PCP - General Internal Medicine 03/08/24 Geronimo Beltran MD [address] [place] [address] [email or web address] Insurance Assigned Provider 09/19/20 06/17/23 Emely Barnes, RN [address] [place] [address] [email or web address] iCMP Banana Loader 07/27/21 08/10/21 documented as of this encounter Additional Source Comments The information contained in this document represents components of the legal health record. It is not the complete legal health record.[facility]
--- OUTSIDE RECORDS SUMMARY | 2025-03-10 15:50 | XMS_ITS | Encounter Summary ---
Author Organization [facility] Address [address] [place] [address] Phone Care Team Providers Care Lead Fabricator Name Role Phone Giovanna Garcia NP Primary Care Provider [phone] Geronimo Beltran MD Unavailable [phone] Emely Barnes RN Unavailable [phone] Unknown, Unknown Primary Care Provider Hayley Couch MD Primary Care Provider Encounter Details Date Type Department Care Team (Late st Contact Info) Description 08/10/2021 Procedure Pass [address] [place] [address] Social History Tobacco Use Types Packs/Day Years [...] high school, GED, job training, learning the [place] Citizen language, technical skills, or developing parenting skills)? [...] PM EST Office Visit [facility] [address] [place] [address] Efrian Melgar DO [address] [place] [address] documented as of this encounter Visit Diagnoses Not on filedocumented in this encounter Additional Health Concerns Infection Onset Date Last Indicated Resolved Time CoV-Risk 03/29/2022 03/29/2022 04/09/2022 1:22 AM EDT Assessment Noted Time PHQ-2 Depression Total Score: 2 08/11/19 22 9:20 AM EST documented as of this encounter Care Teams Lead Fabricator Relationship Specialty Start Date End Date Giovanna Garcia, COST CONTROLLER [email or web address] PCP - General Family Medicine 11/15/17 08/22/23 Unknown, Daxa, MD PCP - General 08/23/23 03/07/24 Hayley Ni MD [address] [place] [address] [place] [address] PCP - General Internal Medicine 03/08/24 Geronimo Beltran MD [address] [place] [address] [email or web address] Insurance Assigned Provider 09/19/20 06/17/23 Emely Barnes, RN [address] [place] [address] [email or web address] iCMP Crane Follower 07/27/21 08/10/21 documented as of this encounter Additional Source Comments The information contained in this document represents components of the legal health record. It is not the complete legal health record.[facility]
--- OUTSIDE RECORDS SUMMARY | 2025-03-10 15:50 | XMS_ITS | Encounter Summary ---
Author Organization [facility] Address [address] [facility] [address] [place] [address] Phone Care Team Providers Care Character Actor Name Role Phone Giovanna Garcia NP Primary Care Provider [phone] Geronimo Beltran MD Unavailable [phone] Emely Barnes RN Unavailable [phone] Unknown, Unknown Primary Care Provider Hayley Couch MD Primary Care Provider Reason for Referral * MRI/CAT Scan - Closed Specialty Diagnoses / Procedures Referred By Braulio sheehan Referred To Contact Radiology Diagnoses Memory loss Hx of cancer of lung Procedures MRI Brain Efrain Elliott MD Phone: tel: fax: [email or web address] Referral ID Status Reason Start Date Expiration Date Visits Re quested Visits Authorized [id number] Closed 02/01/2021 02/01/2022 1 1 Encounter Details Date Type Department Care Team (Latest Contact Info) Description 02/01/2021 Transcribe Orders Virtual Department [address] [place] [address] Efrain Elliott MD [address] [place] [address], [address] [place], [place] [id number] [email or web address] Memory loss (Primary Dx); Hx [...] PM EST Office Visit [facility] [address] [place] [address] Efrain Melgar DO [address] [place] [address] documented as of this encounter Results * [...] documented as of this encounter Care Teams Character Actor Relationship Specialty Start Date End Date Giovanna Garcia NP [email or web address] PCP - General Family Medicine 11/15/17 08/22/23 Unknown, Unknown, MD PCP - General 08/23/23 03/07/24 Hayley Ni MD [facility] [place] [address] PCP - General Internal Medicine 03/08/24 Geronimo Beltran MD [address] [place] [address] [email or web address] Insurance Assigned Provider 09/19/20 06/17/23 Emely Barnes, RN [address] [place] [address] [email or web address] iCMP Carpet Finishing Supervisor 07/27/21 08/10/21 documented as of this encounter Additional Source Comments The information contained in this document represents components of the legal health record. It is not the complete legal health record.[facility]
--- OUTSIDE RECORDS SUMMARY | 2025-03-10 15:50 | XMS_ITS | Clinical Summary ---
Author Organization [facility] Address [address] [place] [address] Phone Care Team Providers Care Finish Saw Operator Name Role Phone Hayley Ni MD [...] mg total) by mouth daily. 3 Active Max Saline 0.65 % nasal spray 2 DRP [...] Date Site/Laterality Comments OTHER SURGICAL HISTORY PROCEDURE: [place] THORACOSCOPY W/LOBECTOMY SINGLE LOBE; COMMENT: right upper [...] age to complete this topic Insurance MEDICARE [facility] Care Teams Finish Saw Operator Relationship Specialty Start Date End Date Hayley Ni MD [address] [place] [address] PCP - General 11/10/23
--- OUTSIDE RECORDS SUMMARY | 2025-03-10 15:50 | XMS_ITS | Encounter Summary ---
Author Organization [facility] Address [address] [place] [address] Phone Care Team Providers Care Rejoiner Name Role Phone Giovanna Garcia ENDLESS TRACK VEHICLE SUPERVISOR Primary Care Provider [phone] Geronimo Beltran MD Unavailable [phone] Emely Barnes RN Unavailable [phone] Unknown, Unknown Primary Care Provider Hayley Couch MD Primary Care Provider Encounter Details Date Type Department Care Team (Late st Contact Info) Description 02/16/2021 Ancillary Orders [facility] [address] [facility] 3rd Floor, [address] [place] [address] Patrice Quintero MD [address] [place] [phone] [email or web address] Social History Tobacco Use Types Packs/Day [...] PM EST Office Visit [facility] [address] [address] [place] [address] [email or web address] documented as of this encounter Visit Diagnoses [...] documented as of this encounter Care Teams Rejoiner Relationship Specialty Start Date End Date Giovanna Garcia NP PCP - General Family Medicine 11/15/17 08/22/23 Unknown, Unknown, MD PCP - General 08/23/23 03/07/24 Hayley Ni MD [facility] [address] [place] PCP - General Internal Medicine 03/08/24 Geronimo Beltran MD [address] [place] [address] [email or web address] Insurance Assigned Provider 09/19/20 06/17/23 Emely Barnes, RN [address] [place] [address] [email or web address] iCMP Hand Wood Sander 07/27/21 08/10/21 documented as of this encounter Additional Source Comments The information contained in this document represents components of the legal health record. It is not the complete legal health record.[facility]
--- OUTSIDE RECORDS SUMMARY | 2025-03-10 15:50 | XMS_ITS | Encounter Summary ---
Author Organization [facility] Address [address] [facility] [address] [place] [address] Phone Care Team Providers Care Fertilizer Loader Name Role Phone Hayley Ni MD Primary Care Provider Reason for Visit * Reason Comments Medication Refill Encounter Details Date Type Department Care Team (Late st Contact Info) Description 12/20/2024 Refill [facility] [address] [place] [address] Efrain Melgar, DO [address] [place] [address] [email or web address] Medication Refill Social History [...] 1:40 PM EST Office Visit [facility] [address] [place] [address] [place] [address] Efrain Melgar DO [address] [place] [address] [email or web address] documented as of this encounter Visit Diagnoses Diagnosis Vitamin D deficiency documented in this encounter Additional Health Concerns Assessment Noted Time PHQ-2 Depression Total Score: 2 08/11/19 9:20 AM EST documented as of this encounter Care Teams Fertilizer Loader Relationship Specialty Start Date End Date Hayley Ni MD [address] [place] [address] [place] [address] PCP - General Internal Medicine 03/08/24 documented as of this encounter Additional Source Comments The information contained in this document represents components of the legal health record. It is not the complete legal health record.[facility]
--- OUTSIDE RECORDS SUMMARY | 2025-03-10 15:50 | XMS_ITS | Encounter Summary ---
Author Organization [facility] Address [address] [place] [address] Phone Care Team Providers Care Edger Machine Setter Name Role Phone Giovanna Garcia MANAGER SOUND Primary Care Provider [phone] Geronimo Beltran MD Unavailable [phone] Emely Barnes RN Unavailable [phone] Unknown, Unknown Primary Care Provider Hayley Couch MD Primary Care Provider Encounter Details Date Type Department Care Team (Late st Contact Info) Description 11/16/2020 Ancillary Orders [facility] [address] [facility] 3rd Floor, [address] [place] [address] Patrice Quintero MD [address] [place] [phone] [email or web address] Social History Tobacco Use Types Packs/Day Years [...] PM EST Office Visit [facility] [address] [place] [address] [place] [address] [email or web address] documented as of [...] documented as of this encounter Care Teams Edger Machine Setter Relationship Specialty Start Date End Date Giovanna Garcia NP PCP - General Family Medicine 11/15/17 08/22/23 Unknown, Unknown, MD PCP - General 08/23/23 03/07/24 Hayley Ni MD [facility] [address] [place] PCP - General Internal Medicine 03/08/24 Geronimo Beltran MD [address] [place] [address] [email or web address] Insurance Assigned Provider 09/19/20 06/17/23 Emely Barnes, RN [address] [place] [address] [email or web address] iCMP Yardage Control Operator Forming 07/27/21 08/10/21 documented as of this encounter Additional Source Comments The information contained in this document represents components of the legal health record. It is not the complete legal health record.[facility]
--- OUTSIDE RECORDS SUMMARY | 2025-03-10 15:51 | XMS_ITS | Clinical Summary ---
Author Organization [facility] Address [address] [employer] [facility] [address] [place] [address] Phone Care Team Providers Care Fiber Analyst Name Role Phone Hayley Ni MD [...] done soon after waking up at a [facility] facility. Vitamin D deficiency 09/23/2024 [...] do dexamethasone suppression test to rule out Bradner syndrome. She will benefit from antiresorptive medications [...] intake. I asked her to buy Citracal [id number] she should take 2 tablets daily preferably [...] hopefully, they will again be available at [facility]. Syncope 03/10/2020 Assessment & Plan (07/06/2020 1:37 PM EST): No recurrence of any syncope, near syncope, or seizure symptoms recently. We will continue to check her loop recorder routinely. Assessment & Plan (03/11/2020 5:49 PM EDT): Question brought on by atrial fibrillation, versus seizure --Continue quality assurance monitor chassis. Implantable loop recorder being planned for Monday [...] seen vaginal bleeding or bleeding with intercourse Community Affairs Manager exam normal Offered estrace topically Psychophysiological insomnia [...] she has elevated risk of stroke her [id number] score of 3 with 3.2% adjusted stroke [...] Team Description 02/06/2025 1:30 PM EDT Infusion [facility] [address] [place] [address] Efrain Melgar DO Age-related osteoporosis without current pathological fracture (Primary Dx) 01/10/2025 8:18 AM EDT - 01/10/2025 11:59 PM EDT Hospital Encounter [facility] Laboratory [address] [place] [address] Efrain Melgar DO Discharge Disposition: Home or Self Care 01/09/2025 3:00 PM EDT Office Visit [facility] [address] [place] [address] Efrain Melgar DO Age-related osteoporosis without current pathological fracture (Primary Dx); Elevated cortisol level; Vitamin D deficiency 12/23/2024 8:54 AM EDT - 12/23/2024 11:59 PM EDT Hospital Encounter [facility] Laboratory [address] [place] [address] Efrain Melgar DO Discharge Disposition: Home or Self Care 12/20/2024 Refill [facility] [address] [place] [address] Efrain Melgar DO Medication Refill from Last 3 Months Immunizations Immunization Administration Dates Next Due INFLUENZA, SPLIT VIRUS, TRIVALENT PF 03/04/2016, 06/03/2015 INFLUENZA, SPLIT VIRUS, TRIV ALENT W/ PRESERVATIVE IM 03/12/2021,03/12/2019,01/31/2017,03/27,02/16/2011 Influenza High-Dose Quadriva lent Preservative Free IM 04/28/2022,05/31/2021,03/26/2020,03/12(Deferred: Not Available From Online Education Manager) Influenza Quadrivalent Prese rvative Free IM 03/20/2019,03/20/2018 [...] PM EST Office Visit [facility] [address] [place] [address] Efrain Melgar DO [address] [place] [address] Health Maintenance Due Date Last Done Comments ZOSTER VACCINES (1 of 2) 1973 COLOGUARD 1999 FIT TEST 1999 FOBT 1999 SIGMOIDOSCOPY 1999 VIRTUAL COLONOSCOPY 1999 RSV VACCINE (1 - Risk 60-74 years 1-dose series) 2014 MAMMOGRAM 05/28/2021 05/28/2019, 06/2 06/2016, 09/29/2016, Additional history exists DEPRESSION SCREENING 08/10/2022 08/10/2021 COLONOSCOPY 12/10/2024 12/10/2014 COLORECTAL CANCER SCREENING 12/10/2024 PAP SMEAR 12/23/2024 12/24/2019, 12/10, 05/18/2017, Additional history exists INFLUENZA VACCINE (#1) 2025 , 04/28/2022, 05/31/2021, Additional history exists COVID-19 VACCINE ( season) 2025 06/15/2021 POTASSIUM LEVEL 06/17/2025 06/17/2024, 04/12, 03/29/2022, Additional history exists BLOOD PRESSURE 08/09/2025 02/06/2025 CREATININE LEVEL 12/23/2025 12/23/2024, 11/2024, 06/17/2024, Additional history exists FOLLOW UP BONE DENSITY TESTING 01/09/2027 01/09/2025, 05/28/2019, 02/07/2019, Additional history exists LIPID PANEL 03/20/2028 03/20/2023, 02/2023, 06/16/2020, Additional history exists Adult Td,Tdap [...] this topic Medical Devices Implanted Type Area Online Education Manager Device Identifier Shelf Expiration Date Model / Serial / Lot Monitor Cardiac Implantable And Patient Home Monitor Mycarelink - [id number] Implanted:Qty: 1 on 03/20/2020 by Radu Somers MD at [facility] Implantable Monitor [employer] 11/23/2020 LINNILAMYS / [id number] / Procedures Procedure Name Priority Date/Time Associated [...] D (TOTAL) 44 30 - 60 ng/mL [facility] Blood 01/10/2025 8:19 AM EDT 01/10/2025 8:20 AM EDT us Efrain Sanostee DO LAB BLOOD ORDERABLES Final Resul t Performing Organization Address City/[facility]/ZIP Co de Phone Number [address] [address] * Timed urine data (12/23/2024 8:30 AM EDT) COLLECTION DATA 24 [facility] TOTAL VOLUME 900 mL [facility] 12/23/2024 8:30 AM EDT 12/23/2024 8:59 AM EDT us Efrain Melgar DO URINE ORDERABLES Final Result Performing Organization Address [facility] Co de Phone Number [address] [address] * Calcium, 24 hour urine (12/23/2024 8:30 AM EDT) URINE CALCIUM 11.8 mg/dL [facility] CALCIUM OUTPUT 106 100 - 300 mg/total output [facility] Urine (Urine) 12/23/2024 8:3 0 AM EDT 12/23/2024 8:59 AM EDT us Efrain Melgar DO URINE ORDERABLES Final Result Performing Organization Address [facility]/ZIP Co de Phone Number [address] [address] * Creatinine, 24 hr urine (12/23/2024 8:30 AM EDT) URINE CREATININE 80 mg/dL [facility] CREATININE OUTPUT 720 600 - 1,800 mg/total output [facility] Urine (Urine) 12/23/2024 8:3 0 AM EDT 12/23/2024 8:59 AM EDT us Efrain Melgar DO URINE ORDERABLES Final Result Performing Organization Address [facility] Co de Phone Number [address] [address] * (ABNORMAL) Comprehensive metabolic panel (06/17/2024 8:43 AM EST) SODIUM 139 133 - 146 mmol/L [facility] POTASSIUM 3.4 3.3 - 5.1 mmol/L [facility] CHLORIDE 94(L) 96 - 108 mmol/L [facility] CO2 32 21 - 35 mmol/L [facility] BUN 19 6 - 19 mg/dL [facility] CREATININE 0.70 0.5 - 1.5 mg/dL [facility] GLUCOSE 112(H) 70 - 99 mg/dL [facility] ALBUMIN 4.6 3.9 - 4.8 g/dL [facility] TOTAL PROTEIN 8.0 6.5 - 8.0 g/dL [facility] CALCIUM 10.0 8.4 - 10.3 mg/dL [facility] ALKALINE PHOSPHATASE 132(H) 39 - 117 U/L [facility] TOTAL BILIRUBIN 0.3 0.0 - 1.2 mg/dL [facility] AST 19 0 - 37 U/L [facility] ALT 12 0 - 40 U/L [facility] GLOBULIN 3.4 1 - 4.8 g/dL [facility] EGFR 93 >59 mL/min/1.7 3m2 [facility] Comment:Estimated glomerular filtration rate calculated using the CKD-EPI refit equation. ANION GAP 16 10 - 20 mmol/L [facility] Blood 06/17/2024 8:43 AM EST 06/17/2024 8:50 AM EST Efrain Melgar DO LAB BLOOD ORDERABLES Final Resul t [address] [address] * (ABNORMAL) Lipid panel (06/16/2020 10:50 AM EST) HDL 62 mg/dL [facility] Comment: Interpretation <40 mg/dL: Low HDL cholesterol (major risk factor for CHD) Greater than or equal to 60 mg/dL: High HDL cholesterol ( negative risk factor for CHD) HDL - cholesterol is affected by a number of factors, e.g. smoking, excerise, hormones, sex and age. CHOLESTEROL 250(H) 0 - 240 mg/dL [facility] TRIGLYCERIDES 145 30 - 160 mg/dL [facility] LDL 159(H) 50 - 129 mg/dL [facility] Comment: LDL levels in terms of risk for coronary heart disease: <100 mg/dL: Optimal 100-129 mg/dL: Near or above optimal 130-159 mg/dL: Borderline high 160-189 mg/dL: High >190 mg/dL: Very High CARDIAC RISK RATIO 4.0 3.3 - 4.4 [facility] Blood 06/16/2020 10:5 0 AM EST 06/16/2020 10:58 AM EST us Giovanna Garcia NP LAB BLOOD ORDERABLES Final Resu lt [address] [address] * Pap Smear (12/24/2019 12:00 AM EDT) 12/24/2019 12/26/2019 3:0 7 PM EDT Narrative SEE NARRATIVE - 01/03/2020 2:55 PM EDT [address] [address] Compounding Pharmacy Technician: Erna Brown MD OPEN SOURCE DEVELOPER Cytology Report FINAL DIAGNOSIS A. PAP SMEAR [...] 52, 56, 58, 59, 66, 68) by [employer] Onclarity HR-HPV analysis. Clinical correlation is advised. This HPV test was performed at [facility], [address] [place] [address]. This test has been FDA approved for SurePath cervical cytology specimens. The accuracy and precision of this test for all other specimen sources has been verified in the Cytopathology Laboratory of the [facility] and has not been cleared or approved by the U.S. Food and Drug Administration. Clinical correlation is advised. CLINICAL HISTORY Date of Last Menstrual Period: Not Provided Menstrual History: Post Menopausal Other Clinical Conditions: Screening Pap SPECIMEN SOURCE A: PAP SMEAR (SUREPATH) CE Patient Name: ZAYNAB MCGUIRE : 1955 (Age: 64) Sex: F Institution: [facility] Location: [facility] Date of Collection: 12/24/2019 Date of Reported: [...] (12/11/2018 3:41 PM EDT) HCV Negative Negative [facility] Comment: This is a screening test and should be confirmed with molecular testing Blood 12/11/2018 3:41 PM EDT 12/11/2018 3:48 PM EDT Giovanna Garcia NP LAB BLOOD ORDERABLES Final Resu lt [facility] [address] [place] [address] * COLONOSCOPY FOR RESULT ENTRY ONLY (12/10/2014) Colonoscopy . us Historical Provider MD HEALTH MAINTENANCE Final Result from Last 3 Months or Most Recently Relevant to Health Maintenance Insurance MEDICARE PART A & B [employer] MEDEX SUPPLEMENT MEDICARE PART A & B [employer] MEDEX SUPPLEMENT MEDICARE PART A & B [employer] MEDEX SUPPLEMENT MEDICARE PART A & B [employer] MEDEX SUPPLEMENT MEDICARE PART A & B [employer] MEDEX SUPPLEMENT MEDICARE PART A & B [employer] MEDEX SUPPLEMENT MEDICARE PART A & B [employer] MEDEX SUPPLEMENT MEDICARE PART A & B [employer] [place] MEDEX SUPPLEMENT MEDICARE PART A & B [employer] MEDEX SUPPLEMENT Advance Directives For more information, please contact: [phone] (9AM - 5PM 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 It is not the complete legal health record.[facility]
--- OUTSIDE RECORDS SUMMARY | 2025-03-10 15:51 | XMS_ITS | Encounter Summary ---
Author Organization [facility] Address [address] [facility] [address] [place] [address] Phone Care Team Providers Care Real Estate Portfolio Manager Name Role Phone Giovanna Garcia NP Primary Care Provider [phone] Geronimo Beltran MD Unavailable [phone] Emely Barnes RN Unavailable [phone] Unknown, Unknown Primary Care Provider Hayley Couch MD Primary Care Provider Encounter Details Date Type Department Care Team (Late Contact Info) Description 03/20/2019 Ancillary Orders [facility],Outside [facility] [address] [place], [place] [id number] System, Provider [place] In, [place] [address] Social History Tobacco Use Types Packs/Day Years [...] 1:40 PM EST Office Visit [facility] [address] [place] [address] [place] [address] Efrain Melgar DO [address] [place] [address] [email or web address] documented as [...] documented as of this encounter Care Teams Real Estate Portfolio Manager Relationship Specialty Start Date End Date Giovanna Garcia NP [email or web address] PCP - General Family Medicine 11/15/17 08/22/23 Unknown, Unknown, MD PCP - General 08/23/23 03/07/24 Hayley Ni MD [address] [place] [address] [place] [address] PCP - General Internal Medicine 03/08/24 Geronimo Beltran MD [address] [place] [address] [email or web address] Insurance Assigned Provider 09/19/20 06/17/23 Emely Barnes, RN [address] [place] [address] [email or web address] iCMP On Air Host 07/27/21 08/10/21 documented as of this encounter Additional Source Comments The information contained in this document represents components of the legal health record. It is not the complete legal health record.[facility]
--- OUTSIDE RECORDS SUMMARY | 2025-03-10 15:51 | XMS_ITS | Encounter Summary ---
Author Organization [facility] Address [address] [facility] [address] [place] [address] Phone Care Team Providers Care Loftsman/Woman Name Role Phone Giovanna Garcia NP Primary Care Provider [phone] Geronimo Beltran MD Unavailable [phone] Emely Barnes RN Unavailable [phone] Unknown, Unknown Primary Care Provider Hayley Couch MD Primary Care Provider Encounter Details Date Type Department Care Team (Late st Contact Info) Description 03/10/2020 Procedure Pass [facility], Ct Scan - [address] [address] Social History Tobacco Use Types Packs/Day Years [...] 1:40 PM EST Office Visit [facility] [address] Efrain Melgar DO [address] [place] [address] [email or web address] documented [...] documented as of this encounter Care Teams Loftsman/Woman Relationship Specialty Start Date End Date Giovanna Garcia NP [email or web address] PCP - General Family Medicine 11/15/17 08/22/23 Unknown, Unknown, MD PCP - General 08/23/23 03/07/24 Hayley Ni MD [facility] [place] [address] PCP - General Internal Medicine 03/08/24 Geronimo Beltran MD [address] [place] [address] [email or web address] Insurance Assigned Provider 09/19/20 06/17/23 Emely Barnes, ABE [address] [place] [address] [email or web address] iCMP Assembly Machine Tender 07/27/21 08/10/21 documented as of this encounter Additional Source Comments The information contained in this document represents components of the legal health record. It is not the complete legal health record.[facility]
--- OUTSIDE RECORDS SUMMARY | 2025-03-10 15:51 | XMS_ITS | Encounter Summary ---
Author Organization [facility] Address [address] [facility] [address] [place] [address] Phone Care Team Providers Care Clerk General Office Name Role Phone Giovanna Garcia NP Primary Care Provider [phone] Geronimo Beltran MD Unavailable [phone] Emely Barnes RN Unavailable [phone] Unknown, Unknown Primary Care Provider Hayley Couch MD Primary Care Provider Encounter Details Date Type Department Care Team (Late st Contact Info) Description 03/10/2020 Procedure Pass [facility], Ct Scan - [address] [address] Social History Tobacco Use Types Packs/Day Years [...] 1:40 PM EST Office Visit [facility] [place] [address] Efrain Melgar DO [address] [place] [address] [email or web address] documented as of this [...] documented as of this encounter Care Teams Clerk General Office Relationship Specialty Start Date End Date Giovanna Garcia NP [email or web address] PCP - General Family Medicine 11/15/17 08/22/23 Unknown, Unknown, MD PCP - General 08/23/23 03/07/24 Hayley Ni MD [facility] [place] [address] PCP - General Internal Medicine 03/08/24 Geronimo Beltran MD [address] [place] [address] [email or web address] Insurance Assigned Provider 09/19/20 06/17/23 Emely Barnes, ABE [address] [place] [address] [email or web address] iCMP Fitting Room Maintenance Mechanic 07/27/21 08/10/21 documented as of this encounter Additional Source Comments The information contained in this document represents components of the legal health record. It is not the complete legal health record.[facility]
--- OUTSIDE RECORDS SUMMARY | 2025-03-10 15:51 | XMS_ITS | Encounter Summary ---
Author Organization [facility] Address [address] [employer] [facility] [address] [place] [address] Phone Care Team Providers Care Maintenance Assistant Name Role Phone Giovanna Garcia NP Primary Care Provider [phone] Geronimo Beltran MD Unavailable [phone] Emely Barnes RN Unavailable [phone] Unknown, Unknown Primary Care Provider Hayley Couch MD Primary Care Provider Encounter Details Date Type Department Care Team (Late Contact Info) Description 03/20/2019 Ancillary Orders [facility],Outside [facility] [address] [place], [place] [id number] System, Provider [place] In, [place] [address] Social History Tobacco Use Types Packs/Day Years [...] 1:40 PM EST Office Visit [facility] [address] [place] [address] [place] [address] Efrain Melgar DO [address] [place] [address] [email or web address] documented as of this encounter Results * [...] documented as of this encounter Care Teams Maintenance Assistant Relationship Specialty Start Date End Date Giovanna Garcia NP [email or web address] PCP - General Family Medicine 11/15/17 08/22/23 Unknown, Unknown, MD PCP - General 08/23/23 03/07/24 Hayley Ni MD [address] [place] [address] [place] [address] PCP - General Internal Medicine 03/08/24 Geronimo Beltran MD [address] [place] [address] [email or web address] Insurance Assigned Provider 09/19/20 06/17/23 Emely Barnes, RN [address] [place] [address] [email or web address] iCMP Brick Cleaner 07/27/21 08/10/21 documented as of this encounter Additional Source Comments The information contained in this document represents components of the legal health record. It is not the complete legal health record.[facility]
--- OUTSIDE RECORDS SUMMARY | 2025-03-10 15:51 | XMS_ITS | Encounter Summary ---
Author Organization [facility] Address [address] [employer] [facility] [address] [place] [address] Phone Care Team Providers Care Supply Chain Systems Manager Name Role Phone Giovanna Garcia NP Primary Care Provider [phone] Geronimo Beltran MD Unavailable [phone] Emely Barnes RN Unavailable [phone] Unknown, Unknown Primary Care Provider Hayley Couch MD Primary Care Provider Encounter Details Date Type Department Care Team (Late Contact Info) Description 03/20/2019 Ancillary Orders [facility],Outside [facility] [address] [place], [place] [phone] System, Provider Not In, [place] [address] Social History Tobacco Use Types Packs/Day Years [...] 1:40 PM EST Office Visit [facility] [address] [place] [address] [place] [address] Efrain Melgar DO [address] [place] [address] [email or web address] documented as of this encounter Results * [...] documented as of this encounter Care Teams Supply Chain Systems Manager Relationship Specialty Start Date End Date Giovanna Garcia NP [email or web address] PCP - General Family Medicine 11/15/17 08/22/23 Unknown, Unknown, MD PCP - General 08/23/23 03/07/24 Hayley Ni MD [address] [place] [address] [place] [address] PCP - General Internal Medicine 03/08/24 Geronimo Beltran MD [address] [place] [address] [email or web address] Insurance Assigned Provider 09/19/20 06/17/23 Emely Barnes, RN [address] [place] [address] [email or web address] iCMP Final Inspector Movement Assembly 07/27/21 08/10/21 documented as of this encounter Additional Source Comments The information contained in this document represents components of the legal health record. It is not the complete legal health record.[facility]
--- OUTSIDE RECORDS SUMMARY | 2025-03-10 15:51 | XMS_ITS | Encounter Summary ---
Author Organization [facility] Address [address] [employer] [facility] [address] [place] [address] Phone Care Team Providers Care Third Rigger Name Role Phone Giovanna Garcia NP Primary Care Provider [phone] Geroinmo Beltran MD Unavailable [phone] Emely Barnes RN Unavailable [phone] Unknown, Unknown Primary Care Provider Hayley Couch MD Primary Care Provider Encounter Details Date Type Department Care Team (Late Contact Info) Description 03/20/2019 Ancillary Orders [facility],Outside [facility] [address] [place], [place] [phone] System, Provider [place] In, [place] [address] Social History Tobacco Use Types Packs/Day Years [...] PM EST Office Visit [facility] [address] [place] [address] [place] [address] Efrain Melgar DO [address] [place] [address] [email or web address] documented as of this encounter Results * [...] documented as of this encounter Care Teams Third Rigger Relationship Specialty Start Date End Date Giovanna Garcia NP [email or web address] PCP - General Family Medicine 11/15/17 08/22/23 Unknown, Unknown, MD PCP - General 08/23/23 03/07/24 Hayley Ni MD [address] [place] [address] [place] [address] PCP - General Internal Medicine 03/08/24 Geronimo Beltran MD [address] [place] [address] [email or web address] Insurance Assigned Provider 09/19/20 06/17/23 Emely Barnes, RN [address] [place] [address] [email or web address] iCMP Reactor Operator 07/27/21 08/10/21 documented as of this encounter Additional Source Comments The information contained in this document represents components of the legal health record. It is not the complete legal health record.[facility]
--- OUTSIDE RECORDS SUMMARY | 2025-03-10 15:51 | XMS_ITS | Patient Health Record ---
Author Organization [facility] Address [address] [place] [address] Care Team Providers Care Mixer Blender Name Role Phone Abigail Em MD Primary Care Provider Noah Hummel [phone] Allergies Allergen (clinical drug ingredient) Drug/Non Drug [...] Problem Status W/U Status Risk Notes Problem [id number] Encounter for screening for malignant neoplasm of colon (Z12.11) Active confirmed Problem 200163426 History of adenomatous polyp of colon (Z86.010) Active confirmed Problem Nausea and vomiting (54189807) Nausea with vomiting, unspecified (R11.2) Active confirmed Problem 097134250 Gastroesophageal reflux disease without esophagitis (K21.9) Active confirmed Problem 92820082 Dysphagia, unspecified type (R13.10) Active confirmed Problem Acute diarrhea (179869665) Acute diarrhea (R19.7) Active confirmed Plan Of [...] Date MEDICARE OF [place] [address] [facility] [id number] [id number] VJ MCGUIRE Self - patient is the insured [employer] ATTN CLAIMS [address] [place] [address] [phone] [id number] VJ MCGUIRE Self - patient is [...] check for sleep apnea Pneumonia in 09/2015--at [facility] Hypertension Grand mal seizure 02/2020 at [facility] Atrial fibrillation with a l oop [...]
== END 2025-03-10 14:48 | disposition home or self-care (01) ==
LOC: HO.HPS 14:01
PROVIDERS: PCP Internal Medicine; Visit Provider Hospitalist
DX: J22 Unspecified acute lower respiratory infection (principal); J44.0 Chronic obstructive pulmonary disease with (acute) lower respiratory infection; J44.9 Chronic obstructive pulmonary disease, unspecified; C34.90 Malignant neoplasm of unspecified part of unspecified bronchus or lung; G47.33 Obstructive sleep apnea (adult) (pediatric)
CPT/HCPCS: 99214; G2211

== ENCOUNTER 2025-03-17 12:35 | Outpatient (AMB) | payer MEDICARE, SELFPAY ==
--- OUTSIDE RECORDS SUMMARY | 2010-03-01 | XMS_ITS | Encounter Summary ---
Author Organization [facility] Address [address] [place] [address] Phone Care Team Providers Care Threading Machine Operator Name Role Phone Unavailable Primary Care Provider Unavailabl e Encounter Details Date Type Department Care Team (Late st Contact Info) Description 03/01/2010 Hospital Encounter [facility],Outside Imaging 30 [place], [place] [phone] System, Provider Not In, [facility] [address] [address] Social History Tobacco Use Types Packs/Day Years [...] 1:41 PM EDT Vivi Thomas RN * [place] Suicide Severity Rating Scale (Screener/Recent Self-Report) Question Answer Date of Assessment Author 1. Wish to be (Past 1 Month) No 03/29/2022 1:41 PM EDT Vvii Thomas RN 2. Non-Specific Active Suici jose Thoughts (Past 1 Month) No 03/29/2022 1:41 PM EDT Gauri Thomas RN 6. Suicidal Behavior (Lifetime) No 1:41 PM EDT Vivi Thomas RN documented as of this encounter Plan of Treatment Upcoming Encounters Date Type Department Care Team (Late st Contact Info) Description 07/10/2025 1:40 PM EST Office Visit [facility] [address] [place] [address] Efrain Melgar DO 22 [place] [address] [email or web address] documented as of this encounter Procedures Procedure [...] It is not the complete legal health record.[facility]
--- OUTSIDE RECORDS SUMMARY | 2012-01-30 | XMS_ITS | Encounter Summary ---
Author Organization [facility] Address [address] [place] [address] Phone Care Team Providers Care Fur Matcher Name Role Phone Unavailable Primary Care Provider Unavailabl e Encounter Details Date Type Department Care Team (Late st Contact Info) Description 01/30/2012 Hospital Encounter [facility],Outside Imaging 30 [place], [place] [phone] System, Provider Not In, [facility] [address] [address] Social History Tobacco Use Types Packs/Day Years [...] 1:41 PM EDT Vivi Thomas RN * [place] Suicide Severity Rating Scale (Screener/Recent Self-Report) Question [...] PM EST Office Visit [facility] [address] [place] [address] Efrain Melgar DO 22 [place] [address] [email or web address] documented as of [...] It is not the complete legal health record.[facility]
[2025-03-17 12:44] VITALS: BP 130/64; PULSE 71; BMI 23.3
--- NOTE | 2025-03-17 12:44 | A.OFFVIS_ITS ---
Vital Signs 03/17/25 12:44 Height 5 ft 6 in Weight 144 lb 2.917 oz BMI 23.3 BP 130/64 Blood Pressure Location Lt brachial Position Sitting Pulse 71 Pulse Source Monitor Intake Visit Reasons: 6 mth f/up Intake Note: 6 th f/up Manual Arts Therapy Teacher Required: No Accompanied by: Significant Other Allergies bupropion (From Wellbutrin) Allergy (Verified 03/10/25 14:06) Chest Pain ciprofloxacin Allergy (Verified 03/10/25 14:06) Chest Pain IV/IM prednisone Allergy (Uncoded 11/25/24 09:46) Seizure Medication List - Last Reconciled 03/17/25 by Sumeet Trevino MD albuterol sulfate 90 mcg/actuation 2 puffs inhalation Q4H PRN calcium carbonate-vitamin D3 600 mg-20 mcg (800 unit) (Caltrate with Vitamin D3) 1 tab PO DAILY cholecalciferol (vitamin D3) 1,250 mcg PO QWEEK diltiazem HCl ER 240 mg PO DAILY doxycycline hyclate 100 mg PO BID 10 days estradiol 0.01%(0.1mg/gram) (Estrace) use pea-sized amount to fingertip and apply vaginally at bedtime daily; flecainide 100 mg PO Q12H nchmbgwynvz-nyeptswzs-ycjfvqdf 200-62.5-25 mcg (Trelegy Ellipta) 1 inh inhalation DAILY 30 days lamotrigine 100 mg PO BID levalbuterol HCl 1.25 mg (3 mL) inhalation BID 30 days methenamine hippurate 1 g PO BID nebulizers As directed omeprazole 40 mg PO BID Oxygen Home Use As directed phenazopyridine (Azo Urinary Pain Relief) 95 mg PO TID PRN prednisone PO daily; Take 4 tabs x 3 days, then 3 tabs x 3 days, then 2 tabs daily x 3 days, then 1 tab x 3 days to complete. 12 days rivaroxaban (Xarelto) 20 mg PO QPM sodium chloride 3% 4 mL inhalation BID 30 days HPI Comments Details: 69-year-old female who is here for follow-up. She has background history of paroxysmal atrial fibrillation. She had chest pains when she had atrial fibrillation. She had precordial T-wave inversions. We tried to a stress test but she collapsed while exercising without any ECG changes and etiology was unclear. After discussion she was taken cardiac catheterization. Cardiac catheterization showed normal filling pressures without any significant coronary disease. After discussion she was started on flecainide. She is returning and denying any palpitations. She is saying she is short of breath and will be seeing her imaging manager in a week. No fevers or chills. Otherwise stable clinically. 02/22/2023: She returns for follow-up. She is denying any chest discomfort. She has bronchitis and has been coughing. It appears she was receiving azithromycin for suppression of chronic bronchitis. Her recent QT interval was prolonged. She was taken off the azithromycin yesterday. EKG in the office is showing prolonged QT interval of 504 milliseconds. No dizziness or syncope. Otherwise taking medications regularly. 08/30/2023: She returns for follow-up. She has been doing well. No chest pain or shortness of breath. Her is undergoing aortic valve replacement at [facility]. Taking medications regularly and tolerating them well. 01/03/24: She is here for f/u. She has been doing good. She has occasional palpitations and overall has been stable. Taking meds regularly. 06/17/2024: She returns for follow-up. No palpitations and continues to be in sinus rhythm. She has been experiencing some dizziness and lightheadedness. Blood pressure is borderline and I have advised her to stop the hydrochlorothiazide. She experienced central chest pain lasting for 35 minutes few days ago at nighttime. This was self-limiting. Today she had similar central pain on a small area just behind the xiphoid. She said this was at rest. She did not have any exertional symptoms. Her ECG has been abnormal previously and continues to show nonspecific ST-T changes. 09/25/2024: Here for follow-up. She underwent stress testing and was able to exercise for 6 minutes on treadmill. Overall the stress echocardiogram was negative for ischemia at achieved workload. She returns and has been doing well. She has some palpitations off and on which lasts for few sec. She is saying these happen every day but these are fleeting and do not last long. Taking medications otherwise regularly. 03/17/2025: She is here for follow-up. Compliant with medications. Occasionally gets palpitations lasting for few sec. blood pressure well controlled. EKGs showing sinus rhythm and is unchanged compared to previous EKGs. Overall tolerating medications and doing well. [facility] Medical History Recurrent urinary tract infection History of lung cancer Dyslipidemia History of adenomatous polyp of colon Hx of TIA (transient ischemic attack) and stroke History of seizure disorder Achalasia of esophagus Osteoporosis HTN (hypertension) KRISTEN on CPAP Asthma-COPD overlap syndrome GERD (gastroesophageal reflux disease) Surgical History S/P cardiac catheterization S/P partial lobectomy of lung H/O wrist surgery History of cholecystectomy Family History Mother Small cell lung cancer Father Stomach cancer Brother Diabetes Throat cancer Social History Household Members: Spouse and Children Housing: House Do you presently have visiting nurse or other home services: No Alcohol intake: current Alcohol intake frequency: does not drink Patient Tobacco Use Status: Former Tobacco user Years Smoked: 30 +/- e-Cigarette/Vaping Use: Never Used Substance Use Type: Marijuana Advance Directives Date on File: 04/21/22 service: No Current occupational status: retired Cognitive needs: No Hearing needs: No Vision needs: Yes Review of Systems Const Denies chills, Denies fatigue, Denies fever(s), Denies frequent falls, Denies weakness, Denies weight gain and Denies weight loss ENT Denies dizziness Card Denies chest pain, Denies leg edema, Denies lightheadedness, Denies palpitations, Denies dyspnea and Denies dyspnea on exertion Resp Denies cough, Denies dyspnea and Denies dyspnea on exertion GI Denies hematochezia Musc Denies abnormal gait, Denies muscle weakness, Denies numbness, Denies radiating pain into limb and Denies tingling Neuro Denies abnormal gait, Denies dizziness, Denies frequent falls, Denies numbness, Denies tingling and Denies weakness Endo Denies fatigue and Denies palpitations Physical Exam Vital Signs: Last Vital Signs Pulse 71 03/17/25 12:44 BP 130/64 03/17/25 12:44 BMI result Body Mass Index 23.3 GENERAL APPEARANCE: in no acute distress, pleasant. NECK: no carotid bruit, no jugular venous distention. SKIN: Poison ingrid over the arms and legs. HEART: no murmurs, regular rate and rhythm. LUNGS: clear to auscultation bilaterally. ABDOMEN: soft, nontender. EXTREMITIES: no edema. PERIPHERAL PULSES: equal. NEUROLOGIC: No gross deficits, AAO X 3 Office Procedures EKG Details: Sinus rhythm 71 beats per minute, nonspecific ST-T changes, QTC 436 milliseconds. 88427-[id number], Complete Assessment & Plan Assessment & Plan (1) PAF (paroxysmal atrial fibrillation): Code(s): I48.0 - Paroxysmal atrial fibrillation Category: Medical (2) HTN (hypertension): Code(s): I10 - Essential (primary) hypertension Category: Medical Qualifiers: Hypertension type: primary hypertension Qualified Code(s): I10 - Essential (primary) hypertension Plan Pleasant 69 year female who is here for follow-up. Blood pressure is well controlled currently she will continue same medications for now. She has paroxysmal atrial fibrillation. This is well controlled with flecainide. She had asymptomatic atrial fibrillation in the past. She has palpitations which she continues to report lasting for few sec. Clinically she has been stable and we will see us back in 6 months. Thank you for allowing me to participate in the care of your patient. Please feel free to contact me if you have any questions. Coding Level of Care Code Est Pt Level 4 (60843) Diagnoses PAF (paroxysmal atrial fibrillation) I48.0 Primary hypertension I10 Hypertension type: primary hypertension CPT Codes EKG - CPT: 02761-[id number], Complete ([id number])
--- OUTSIDE RECORDS SUMMARY | 2025-03-17 15:02 | XMS_ITS | Encounter Summary ---
Author Organization [facility] Address [address] [facility] [address] [place] [address] Phone Care Team Providers Care Mixer Crane Operator Name Role Phone Giovanna Garcia NP Primary Care Provider [phone] Geronimo Beltran MD Unavailable [phone] Emely Barnes RN Unavailable [phone] Unknown, Unknown Primary Care Provider Hayley Couch MD Primary Care Provider Encounter Details Date Type Department Care Team (Late Contact Info) Description 03/20/2020 Procedure Pass [facility] [address] [place] [address] Social History Tobacco Use Types Packs/Day Years [...] 5:32 PM EDT Sexual Orientation Straight 04/05/2018 5 :32 PM EDT 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 Not on file Not on file Not on fi le documented as of this encounter Plan of Treatment Upcoming Encounters Date Type Department Care Team (Late Contact Info) Description 07/10/2025 1:40 PM EST Office Visit [facility] [address] [place] [address] Efrain Melgar DO [address] [place] [address] [email or web address] documented as of this encounter Visit Diagnoses [...] documented as of this encounter Care Teams Mixer Crane Operator Relationship Specialty Start Date End Date Giovanna Garcia NP [email or web address] PCP - General Family Medicine 11/15/17 08/22/23 Unknown, Unknown, MD PCP - General 08/23/23 03/07/24 Hayley Ni MD [address] [facility] [place] [address] PCP - General Internal Medicine 03/08/24 Geronimo Beltran MD [address] [place] [address] [email or web address] Insurance Assigned Provider 09/19/20 06/17/23 Emely Barnes, RN [address] [place] [id number] [email or web address] iCMP Hat Brusher Machine 07/27/21 08/10/21 documented as of this encounter Additional Source Comments The information contained in this document represents components of the legal health record. It is not the complete legal health record.[facility]
--- OUTSIDE RECORDS SUMMARY | 2025-03-17 15:03 | XMS_ITS | Encounter Summary ---
Author Organization [facility] Address [address] [place] [address] Phone Care Team Providers Care Rate Examiner Name Role Phone Giovanna Garcia EXECUTIVE RELATIONS SPECIALIST Primary Care Provider [phone] Geronimo Beltran MD Unavailable [phone] Emely Barnes RN Unavailable [phone] Unknown, Unknown Primary Care Provider Hayley Couch MD Primary Care Provider Encounter Details Date Type Department Care Team (Latest Contact Info) Description 03/18/2020 Prep for Surgery [facility] [address] [place] [address] [address] Floor, [address] [place] [address] Radu Somers MD [address] [place] [address] [email or web address] Syncope and collapse (Primary Dx) Social [...] PM EST Office Visit [facility] [address] [place] [address] [place] [address] Efrain Melgar DO [address] [place] [address] [email or web address] documented as of this encounter Visit Diagnoses [...] documented as of this encounter Care Teams Rate Examiner Relationship Specialty Start Date End Date Giovanna Garcia NP [email or web address] PCP - General Family Medicine 11/15/17 08/22/23 Unknown, [place], PCP - General 08/23/23 03/07/24 Hayley Ni MD [facility] [place] [address] PCP - General Internal Medicine 03/08/24 Geronimo Beltran MD [address] [place] [address] [email or web address] Insurance Assigned Provider 09/19/20 06/17/23 Emely Barnes, ABE [address] [place] [address] [email or web address] iCMP Paper Folder 07/27/21 08/10/21 documented as of this encounter Additional Source Comments The information contained in this document represents components of the legal health record. It is not the complete legal health record.[facility]
--- OUTSIDE RECORDS SUMMARY | 2025-03-17 15:03 | XMS_ITS | Encounter Summary ---
Author Organization [facility] Address [address] [facility] [address] [place] [address] Phone Care Team Providers Care Chargeback Analyst Name Role Phone Giovanna Garcia NP Primary Care Provider [phone] Geronimo Beltran MD Unavailable [phone] Emely Barnes RN Unavailable [phone] Unknown, Unknown Primary Care Provider Hayley Couch MD Primary Care Provider Encounter Details Date Type Department Care Team (Late Contact Info) Description 03/20/2020 Procedure Pass [facility] [address] [place] [address] Social History Tobacco Use Types Packs/Day Years [...] PM EST Office Visit [facility] [address] [place] [address] Efrain Melgar DO 22 [place] [address] [email or web address] documented as of this encounter [...] documented as of this encounter Care Teams Chargeback Analyst Relationship Specialty Start Date End Date Giovanna Garcia NP [email or web address] PCP - General Family Medicine 11/15/17 08/22/23 Unknown, Unknown, MD PCP - General 08/23/23 03/07/24 Hayley Ni MD [address] [facility] [place] [address] PCP - General Internal Medicine 03/08/24 Geronimo Beltran MD [address] [place] [address] [email or web address] Insurance Assigned Provider 09/19/20 06/17/23 Emely Barnes, RN [address] [place] [address] [email or web address] iCMP Benefits Assistant 07/27/21 08/10/21 documented as of this encounter Additional Source Comments The information contained in this document represents components of the legal health record. It is not the complete legal health record.[facility]
--- OUTSIDE RECORDS SUMMARY | 2025-03-17 15:03 | XMS_ITS | Encounter Summary ---
Author Organization [facility] Address [address] [place] [address] Phone Care Team Providers Care Staff Software Engineer Name Role Phone Giovanna Garcia NP Primary Care Provider [phone] Geronimo Beltran MD Unavailable [phone] Unknown, Unknown Primary Care Provider Hayley Couch MD Primary Care Provider Encounter Details Date Type Department Care Team (Late st Contact Info) Description 02/09/2022 Transcribe Orders [facility] [facility] [place] [address] Jacky Little MD [address] [address] [email or web address] Social History Tobacco Use Types [...] high school, GED, job training, learning the [place] language, technical skills, or developing parenting skills)? [...] 1:40 PM EST Office Visit [facility] [address] [place] [address] [place] [address] Efrain Melgar, DO [address] [place] [address] documented as of this encounter Visit Diagnoses Not on filedocumented in this encounter Additional Health Concerns Infection Onset Date Last Indicated Resolved Time CoV-Risk 03/29/2022 03/29/2022 04/09/2022 1:22 AM EDT Assessment Noted Time PHQ-2 Depression Total Score: 2 08/11/19 9:20 AM EST documented as of this encounter Care Teams Staff Software Engineer Relationship Specialty Start Date End Date Giovanna Garcia NP [email or web address] PCP - General Family Medicine 11/15/17 08/22/23 Unknown, Unknown, MD PCP - General 08/23/23 03/07/24 Hayley Ni MD [facility] [place] [address] PCP - General Internal Medicine 03/08/24 Geronimo Beltran MD [address] [place] [address] [email or web address] Insurance Assigned Provider 09/19/20 06/17/23 documented as of this encounter Additional Source Comments The information contained in this document represents components of the legal health record. It is not the complete legal health record.[facility]
--- OUTSIDE RECORDS SUMMARY | 2025-03-17 15:04 | XMS_ITS | Encounter Summary ---
Author Organization [facility] Address [address] [facility] [address] [place] [address] Phone Care Team Providers Care Parquet Floor Layer'S Helper Name Role Phone Giovanna Garcia NP Primary Care Provider [phone] Geronimo Beltran MD Unavailable [phone] Emely Barnes RN Unavailable [phone] Unknown, Unknown Primary Care Provider Hayley Couch MD Primary Care Provider Encounter Details Date Type Department Care Team (Late st Contact Info) Description 03/17/2020 Procedure Pass [facility], [address] [address] Social History Tobacco Use Types Packs/Day Years [...] PM EST Office Visit [facility] [place] [address] Efrain Melgar DO [address] [place] [address] [email or web address] documented as [...] documented as of this encounter Care Teams Parquet Floor Layer'S Helper Relationship Specialty Start Date End Date Giovanna Garcia NP [email or web address] PCP - General Family Medicine 11/15/17 08/22/23 Unknown, Unknown, MD PCP - General 08/23/23 03/07/24 Hayley Ni MD [facility] [place] [address] PCP - General Internal Medicine 03/08/24 Geronimo Beltran MD [address] [place] [address] [email or web address] Insurance Assigned Provider 09/19/20 06/17/23 Emely Barnes, ABE [address] [place] [address] [email or web address] iCMP Warehouse Lead 07/27/21 08/10/21 documented as of this encounter Additional Source Comments The information contained in this document represents components of the legal health record. It is not the complete legal health record.[facility]
--- OUTSIDE RECORDS SUMMARY | 2025-03-17 15:04 | XMS_ITS | Encounter Summary ---
Author Organization [facility] Address [address] [place] [address] Phone Care Team Providers Care Secondary Teacher Name Role Phone Giovanna Garcia NP Primary Care Provider [phone] Geronimo Beltran MD Unavailable [phone] Unknown, Unknown Primary Care Provider Hayley Couch MD Primary Care Provider Encounter Details Date Type Department Care Team (Late st Contact Info) Description 11/02/2021 Procedure Pass Non-Invasive Cardiology [address] [place] [id number] Social History Tobacco Use Types Packs/Day Years [...] 1:40 PM EST Office Visit [facility] [address] [place] [address] Efrain Melgar DO [address] [place] [address] documented as of this encounter Visit Diagnoses Not on filedocumented in this encounter Additional Health Concerns Infection Onset Date Last Indicated Resolved Time CoV-Risk 03/29/2022 03/29/2022 04/09/2022 1:22 AM EDT Assessment Noted Time PHQ-2 Depression Total Score: 2 08/11/19 22 9:20 AM EST documented as of this encounter Care Teams Secondary Teacher Relationship Specialty Start Date End Date Giovanna Garcia, INDUSTRIAL MAINTENANCE REPAIRER HELPER PCP - General Family Medicine 11/15/17 08/22/23 Unknown, Unknown, MD PCP - General 08/23/23 03/07/24 Hayley Ni MD [facility] [place] [address] PCP - General Internal Medicine 03/08/24 Geronimo Beltran MD [address] [place] [address] [email or web address] Insurance Assigned Provider 09/19/20 06/17/23 documented as of this encounter Additional Source Comments The information contained in this document represents components of the legal health record. It is not the complete legal health record.[facility]
--- OUTSIDE RECORDS SUMMARY | 2025-03-17 15:04 | XMS_ITS | Encounter Summary ---
Author Organization [facility] Address [address] [place] [address] Phone Care Team Providers Care Horticulture Worker Name Role Phone Giovanna Garcia NP Primary Care Provider Geronimo Beltran MD Unavailable [phone] Unknown, Unknown Primary Care Provider Hayley Couch MD Primary Care Provider Encounter Details Date Type Department Care Team (Late st Contact Info) Description 02/25/2022 Procedure Pass [facility] [address] [place] [address] Social History Tobacco Use Types Packs/Day Years [...] high school, GED, job training, learning the Qatari language, technical skills, or developing parenting skills)? [...] 1:40 PM EST Office Visit [facility] [address] [place] [address] Efrain Melgar DO [address] [place] [address] documented as of this encounter Visit Diagnoses Not on filedocumented in this encounter Additional Health Concerns Infection Onset Date Last Indicated Resolved Time CoV-Risk 03/29/2022 03/29/2022 04/09/2022 1:22 AM EDT Assessment Noted Time PHQ-2 Depression Total Score: 2 08/11/19 9:20 AM EST documented as of this encounter Care Teams Horticulture Worker Relationship Specialty Start Date End Date Giovanna Garcia, SENIOR COUNSEL COMMERCIAL PCP - General Family Medicine 11/15/17 08/22/23 Unknown, Unknown, MD PCP - General 08/23/23 03/07/24 Hayley Ni MD [address] [place] [address] [place] [address] PCP - General Internal Medicine 03/08/24 Geronimo Beltran MD [address] [place] [address] [email or web address] Insurance Assigned Provider 09/19/20 06/17/23 documented as of this encounter Additional Source Comments The information contained in this document represents components of the legal health record. It is not the complete legal health record.[facility]
--- OUTSIDE RECORDS SUMMARY | 2025-03-17 15:05 | XMS_ITS | Encounter Summary ---
Author Organization [facility] Address [address] [facility] [address] [place] [address] Phone Care Team Providers Care Farm Equipment Technician Name Role Phone Giovanna Garcia NP Primary Care Provider [phone] Geronimo Beltran MD Unavailable [phone] Emely Barnes RN Unavailable [phone] Unknown, Unknown Primary Care Provider Hayley Couch MD Primary Care Provider Encounter Details Date Type Department Care Team (Late st Contact Info) Description 04/07/2020 Procedure Pass Non-Invasive Cardiology [address] [place] [address] Social History Tobacco Use Types Packs/Day Years [...] Office Visit [facility] [address] [place] [address] Efrain Melgar DO 22 [place] [address] [email or web address] documented as [...] documented as of this encounter Care Teams Farm Equipment Technician Relationship Specialty Start Date End Date Giovanna Garcia NP [email or web address] PCP - General Family Medicine 11/15/17 08/22/23 Unknown, Unknown, PCP - General 08/23/23 03/07/24 Hayley Ni MD [facility] [place] [address] PCP - General Internal Medicine 03/08/24 Geronimo Beltran MD [address] [place] [address] Insurance Assigned Provider 09/19/20 06/17/23 Emely Barnes, RN [address] [place] [address] [facility] 07/27/21 08/10/21 documented as of this encounter Additional Source Comments The information contained in this document represents components of the legal health record. It is not the complete legal health record.[facility]
--- OUTSIDE RECORDS SUMMARY | 2025-03-17 15:05 | XMS_ITS | Encounter Summary ---
Author Organization [facility] Address [address] [facility] [address] [place] [address] Phone Care Team Providers Care Spout Positioner Name Role Phone Giovanna Garcia NP Primary Care Provider [phone] Geronimo Beltran MD Unavailable [phone] Emely Barnes RN Unavailable [phone] Unknown, Unknown Primary Care Provider Hayley Couch MD Primary Care Provider Encounter Details Date Type Department Care Team (Late st Contact Info) Description 02/16/2021 Procedure Pass Non-Invasive Cardiology [address] [place] [address] Social History Tobacco Use Types Packs/Day Years [...] PM EST Office Visit [facility] [address] [place] [address] Efrain Melgar DO 22 [place] [address] [email or web address] documented as [...] documented as of this encounter Care Teams Spout Positioner Relationship Specialty Start Date End Date Giovanna Garcia NP [email or web address] PCP - General Family Medicine 11/15/17 08/22/23 Unknown, Unknown, PCP - General 08/23/23 03/07/24 Hayley Ni MD [facility] [place] [address] PCP - General Internal Medicine 03/08/24 Geronimo Beltran MD [address] [place] [address] [email or web address] Insurance Assigned Provider 09/19/20 06/17/23 Emely Barnes, ABE [address] [place] [address] iCMP Certified Master Locksmith 07/27/21 08/10/21 documented as of this encounter Additional Source Comments The information contained in this document represents components of the legal health record. It is not the complete legal health record.[facility]
--- OUTSIDE RECORDS SUMMARY | 2025-03-17 15:05 | XMS_ITS | Encounter Summary ---
Author Organization [facility] Address [address] [facility] [address] [place] [address] Phone Care Team Providers Care Psychologists Name Role Phone Giovanna Garcia NP Primary Care Provider [phone] Geronimo Beltran MD Unavailable [phone] mEely Barnes RN Unavailable [phone] Unknown, Unknown Primary Care Provider Hayley Couch MD Primary Care Provider Encounter Details Date Type Department Care Team (Late st Contact Info) Description 02/01/2021 Procedure Pass [facility], [address] [address] Social History Tobacco Use Types Packs/Day Years [...] 1:40 PM EST Office Visit [facility] [place] [address] Efrain Melgar DO 22 [place] [address] [email or web address] documented as [...] documented as of this encounter Care Teams Psychologists Relationship Specialty Start Date End Date Giovanna Garcia NP [email or web address] PCP - General Family Medicine 11/15/17 08/22/23 Unknown, Unknown, PCP - General 08/23/23 03/07/24 Hayley Ni MD [facility] [place] [address] PCP - General Internal Medicine 03/08/24 Geronimo Beltran MD [address] [place] [address] [email or web address] Insurance Assigned Provider 09/19/20 06/17/23 Emely Barnes, RN [address] [place] [address] iCMP Head Operator 07/27/21 08/10/21 documented as of this encounter Additional Source Comments The information contained in this document represents components of the legal health record. It is not the complete legal health record.[facility]
--- OUTSIDE RECORDS SUMMARY | 2025-03-17 15:05 | XMS_ITS | Encounter Summary ---
Author Organization [facility] Address [address] [facility] [address] [place] [address] Phone Care Team Providers Care Buggy Man Name Role Phone Giovanna Garcia NP Primary Care Provider [phone] Geronimo Beltran MD Unavailable [phone] Emely Barnes RN Unavailable [phone] Unknown, Unknown Primary Care Provider Hayley Couch MD Primary Care Provider Encounter Details Date Type Department Care Team (Late st Contact Info) Description 09/27/2018 Procedure Pass [facility], [address] [address] Social History Tobacco Use Types Packs/Day Years [...] PM EST Office Visit [facility] [address] [place] [address] Efrain Melgar DO [address] [place] [address] [email or web address] documented as of this encounter Visit [...] documented as of this encounter Care Teams Buggy Man Relationship Specialty Start Date End Date Giovanna Garcia MANAGER CORPORATE MARKETING [email or web address] PCP - General Family Medicine 11/15/17 08/22/23 Unknown, Daxa, MD PCP - General 08/23/23 03/07/24 Hayley Ni MD [facility] [place] [address] PCP - General Internal Medicine 03/08/24 Geronimo Beltran MD [address] [place] [address] [email or web address] Insurance Assigned Provider 09/19/20 06/17/23 Emely Barnes, RN [address] [place] [address] [email or web address] iCMP Reference Assistant 07/27/21 08/10/21 documented as of this encounter Additional Source Comments The information contained in this document represents components of the legal health record. It is not the complete legal health record.[facility]
--- OUTSIDE RECORDS SUMMARY | 2025-03-17 15:05 | XMS_ITS | Encounter Summary ---
Author Organization [facility] Address [address] [place] [address] Phone Care Team Providers Care Solicitor Patent Name Role Phone Giovanna Garcia NP Primary Care Provider [phone] Geronimo Beltran MD Unavailable [phone] Unknown, Unknown Primary Care Provider Hayley Couch MD Primary Care Provider Encounter Details Date Type Department Care Team (Latest Contact Info) Description 11/02/2021 Ancillary Orders Non-Invasive Cardiology [address] [place] [address] Patrice Quintero MD [address] [place] [address] [email or web address] Syncope and collapse; Paroxysmal atrial fibrillation Social [...] high school, GED, job training, learning the Haitian language, technical skills, or developing parenting skills)? [...] 1:40 PM EST Office Visit [facility] [address] [place] [address] Efrain Melgar DO 22 [place] [address] [email or web address] documented as of this encounter Results * DEVICE CHECK: ILR IN-HOME INTERROGATION (02/02/2022 12:23 PM EDT) Narrative Radu Denise DO - 02/08/2022 9:50 AM EDT Remote interrogation of implantable loop recorder. 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: [employer] Symptoms: 0 Pauses: 0 Bradycardia: 0 [...] documented as of this encounter Care Teams Solicitor Patent Relationship Specialty Start Date End Date Giovanna Garcia NP PCP - General Family Medicine 11/15/17 08/22/23 Unknown, Unknown, MD PCP - General 08/23/23 03/07/24 Hayley Ni MD [address] [place] [address] [place] [address] PCP - General Internal Medicine 03/08/24 Geronimo Beltran MD [address] [place] [address] [email or web address] Insurance Assigned Provider 09/19/20 06/17/23 documented as of this encounter Additional Source Comments The information contained in this document represents components of the legal health record. It is not the complete legal health record.[facility]
--- OUTSIDE RECORDS SUMMARY | 2025-03-17 15:05 | XMS_ITS | Encounter Summary ---
Author Organization [facility] Address [address] [facility] [address] [place] [address] Phone Care Team Providers Care Larder Cook Name Role Phone Giovanna Garcia NP Primary Care Provider [phone] Geronimo Beltran MD Unavailable [phone] Emely Barnes RN Unavailable [phone] Unknown, Unknown Primary Care Provider Hayley Couch MD Primary Care Provider Encounter Details Date Type Department Care Team (Late st Contact Info) Description 03/27/2020 Procedure Pass [facility], [address] [address] Social History Tobacco Use Types Packs/Day Years [...] 1:40 PM EST Office Visit [facility] [address] Efrain Melgar DO 22 [place] [address] [email or web address] documented as of this [...] documented as of this encounter Care Teams Larder Cook Relationship Specialty Start Date End Date Giovanna Garcia NP [email or web address] PCP - General Family Medicine 11/15/17 08/22/23 Unknown, Unknown, PCP - General 08/23/23 03/07/24 Hayley Ni MD [address] [facility] [place] [address] PCP - General Internal Medicine 03/08/24 Geronimo Beltran MD [address] [place] [address] [email or web address] Insurance Assigned Provider 09/19/20 06/17/23 Emely Barnes, RN [address] [place] [address] [email or web address] iCMP Police Lieutenant 07/27/21 08/10/21 documented as of this encounter Additional Source Comments The information contained in this document represents components of the legal health record. It is not the complete legal health record.[facility]
--- OUTSIDE RECORDS SUMMARY | 2025-03-17 15:05 | XMS_ITS | Encounter Summary ---
Author Organization [facility] Address [address] [place] [address] Phone Care Team Providers Care Powder Coat Painter Name Role Phone Giovanna Garcia NP Primary Care Provider [phone] Geronimo Beltran MD Unavailable [phone] Emely Barnes RN Unavailable [phone] Unknown, Unknown Primary Care Provider Hayley Couch MD Primary Care Provider Encounter Details Date Type Department Care Team (Late st Contact Info) Description 08/10/2021 Procedure Pass [address] [place] [address] Social History Tobacco Use Types Packs/Day Years [...] high school, GED, job training, learning the Indian language, technical skills, or developing parenting skills)? [...] PM EST Office Visit [facility] [address] [place] [address] Efrain Melgar DO [address] [place] [address] documented as of this encounter Visit Diagnoses Not on filedocumented in this encounter Additional Health Concerns Infection Onset Date Last Indicated Resolved Time CoV-Risk 03/29/2022 03/29/2022 04/09/2022 1:22 AM EDT Assessment Noted Time PHQ-2 Depression Total Score: 2 08/11/19 22 9:20 AM EST documented as of this encounter Care Teams Powder Coat Painter Relationship Specialty Start Date End Date Giovanna Garcia, SYSTEMS ACCOUNTANT [email or web address] PCP - General Family Medicine 11/15/17 08/22/23 Unknown, Daxa, MD PCP - General 08/23/23 03/07/24 Hayley Ni MD [address] [place] [address] [place] [address] PCP - General Internal Medicine 03/08/24 Geronimo Beltran MD [address] [place] [address] [email or web address] Insurance Assigned Provider 09/19/20 06/17/23 Emely Barnes, RN [address] [place] [address] [email or web address] iCMP Auto Body Worker 07/27/21 08/10/21 documented as of this encounter Additional Source Comments The information contained in this document represents components of the legal health record. It is not the complete legal health record.[facility]
--- OUTSIDE RECORDS SUMMARY | 2025-03-17 15:05 | XMS_ITS | Encounter Summary ---
Author Organization [facility] Address [address] [facility] [address] [place] [address] Phone Care Team Providers Care Last Cleaner Name Role Phone Hayley Ni MD Primary Care Provider Reason for Visit * Reason Comments Medication Refill Encounter Details Date Type Department Care Team (Late st Contact Info) Description 12/20/2024 Refill [facility] [address] [place] [address] Efrain Melgar, DO 22 [place] [address] [email or web address] Medication Refill Social History Tobacco Use Types [...] you interested in more education? Not on demla e 08/23/2023 Are you concerned about learning? [...] 1:40 PM EST Office Visit [facility] [address] [place] [address] [place] [address] Efrain Melgar DO [address] [place] [address] [email or web address] documented as of this encounter Visit Diagnoses Diagnosis Vitamin D deficiency documented in this encounter Additional Health Concerns Assessment Noted Time PHQ-2 Depression Total Score: 2 08/11/19 9:20 AM EST documented as of this encounter Care Teams Last Cleaner Relationship Specialty Start Date End Date Hayley Ni MD [address] [place] [address] [place] [address] PCP - General Internal Medicine 03/08/24 documented as of this encounter Additional Source Comments The information contained in this document represents components of the legal health record. It is not the complete legal health record.[facility]
--- OUTSIDE RECORDS SUMMARY | 2025-03-17 15:05 | XMS_ITS | Encounter Summary ---
Author Organization [facility] Address [address] [facility] [address] [place] [address] Phone Care Team Providers Care Practice Physician Name Role Phone Giovanna Garcia NP Primary Care Provider [phone] Geronimo Beltran MD Unavailable [phone] Emely Barnes RN Unavailable [phone] Unknown, Unknown Primary Care Provider Hayley Couch MD Primary Care Provider Encounter Details Date Type Department Care Team (Late st Contact Info) Description 04/01/2020 Procedure Pass Non-Invasive Cardiology [address] [place] [address] Social History Tobacco Use Types Packs/Day Years [...] PM EST Office Visit [facility] [address] [place] [address] Efrain Melgar DO 22 [place] [address] [email or web address] documented as of this encounter Visit Diagnoses [...] documented as of this encounter Care Teams Practice Physician Relationship Specialty Start Date End Date Giovanna Garcia NP [email or web address] PCP - General Family Medicine 11/15/17 08/22/23 Unknown, Unknown, PCP - General 08/23/23 03/07/24 Hayley Ni MD [facility] [address] PCP - General Internal Medicine 03/08/24 Geronimo Beltran MD [address] [place] [address] Insurance Assigned Provider 09/19/20 06/17/23 Emely Barnes, RN [address] [place] [address] [facility] Raw Sugar Cutter 07/27/21 08/10/21 documented as of this encounter Additional Source Comments The information contained in this document represents components of the legal health record. It is not the complete legal health record.[facility]
--- OUTSIDE RECORDS SUMMARY | 2025-03-17 15:05 | XMS_ITS | Encounter Summary ---
Author Organization [facility] Address [address] [facility] [address] [place] [address] Phone Care Team Providers Care Underwear Welter Name Role Phone Geronimo Beltran MD Primary Care Provider [phone] Giovanna Garcia NP Primary Care Provider [phone] Geronimo Beltran MD Unavailable [phone] Emely Barnes RN Unavailable [phone] Unknown, Unknown Primary Care Provider Hayley Couch MD Primary Care Provider Encounter Details Date Type Department Care Team (Late st Contact Info) Description 09/08/2017 Procedure Pass [facility], Ct Scan - [address] [address] Social History Tobacco Use Types Packs/Day Years [...] 1:40 PM EST Office Visit [facility] [address] [place] [address] Efrain Melgar DO [address] [place] [address] [email or web address] documented as of this encounter Visit [...] documented as of this encounter Care Teams Underwear Welter Relationship Specialty Start Date End Date Geronimo Beltran MD [address] [place] [address] [email or web address] PCP - General Internal Medicine 09/08/17 11/14/17 Giovanna Garcia, BPO SPECIALIST [address] [place] [address] [email or web address] PCP - General Family Medicine 11/15/17 08/22/23 Unknown, Daxa, MD PCP - General 08/23/23 03/07/24 Hayley Ni MD [address] [place] [address] [place] [address] PCP - General Internal Medicine 03/08/24 Geronimo Beltran MD [address] [place] [address] [email or web address] Insurance Assigned Provider 09/19/20 06/17/23 Emely Barnes, RN [address] [place] [address] [email or web address] iCMP Starch Treating Assistant 07/27/21 08/10/21 documented as of this encounter Additional Source Comments The information contained in this document represents components of the legal health record. It is not the complete legal health record.[facility]
--- OUTSIDE RECORDS SUMMARY | 2025-03-17 15:05 | XMS_ITS | Encounter Summary ---
Author Organization [facility] Address [address] [facility] [address] [place] [address] Phone Care Team Providers Care Health And Safety Coordinator Name Role Phone Geronimo Beltran MD Primary Care Provider [phone] Giovanna Garcia NP Primary Care Provider [phone] Geronimo Beltran MD Unavailable [phone] Emely Barnes RN Unavailable [phone] Unknown, Unknown Primary Care Provider Hayley Couch MD Primary Care Provider Encounter Details Date Type Department Care Team (Late Contact Info) Description 10/12/2017 Procedure Pass [facility], Ct Scan - [address] [address] Social History Tobacco Use Types Packs/Day Years [...] PM EST Office Visit [facility] 22 [place] [address] Efrain Melgar DO 22 [place] [address] [email or web address] documented as of this encounter Visit Diagnoses [...] documented as of this encounter Care Teams Health And Safety Coordinator Relationship Specialty Start Date End Date Geronimo Beltran MD [address] [place] [address] [email or web address] PCP - General Internal Medicine 09/08/17 11/14/17 Giovanna Garcia NP [address] [place] [address] [email or web address] PCP - General Family Medicine 11/15/17 08/22/23 Unknown, Daxa, PCP - General 08/23/23 03/07/24 Hayley Ni MD [address] [place] [address] [place] [address] PCP - General Internal Medicine 03/08/24 Geronimo Beltran MD [address] [place] [address] [email or web address] Insurance Assigned Provider 09/19/20 06/17/23 Emely Barnes, RN [address] [place] [address] [email or web address] iCMP [employer] 07/27/21 08/10/21 documented as of this encounter Additional Source Comments The information contained in this document represents components of the legal health record. It is not the complete legal health record.[facility]
--- OUTSIDE RECORDS SUMMARY | 2025-03-17 15:05 | XMS_ITS | Encounter Summary ---
Author Organization [facility] Address [address] [place] [address] Phone Care Team Providers Care Hyperbaric Nurse Name Role Phone Giovanna Garcia NP Primary Care Provider [phone] Geronimo Beltran MD Unavailable [phone] Unknown, Unknown Primary Care Provider Hayley Couch MD Primary Care Provider Encounter Details Date Type Department Care Team (Late st Contact Info) Description 02/24/2022 Procedure Pass [facility] [address] [place] [address] Social History Tobacco Use Types Packs/Day Years [...] high school, GED, job training, learning the Kittitian language, technical skills, or developing parenting skills)? [...] PM EST Office Visit [facility] [address] [place] [address] Efrain Melgar DO [address] [place] [address] documented as of this encounter Visit Diagnoses Not on filedocumented in this encounter Additional Health Concerns Infection Onset Date Last Indicated Resolved Time CoV-Risk 03/29/2022 03/29/2022 04/09/2022 1:22 AM EDT Assessment Noted Time PHQ-2 Depression Total Score: 2 08/11/19 9:20 AM EST documented as of this encounter Care Teams Hyperbaric Nurse Relationship Specialty Start Date End Date Giovanna Garcia, FACILITIES MAINTENANCE ENGINEER PCP - General Family Medicine 11/15/17 08/22/23 Unknown, Unknown, MD PCP - General 08/23/23 03/07/24 Hayley Ni MD [address] [place] [address] [place] [address] PCP - General Internal Medicine 03/08/24 Geronimo Beltran MD [address] [place] [address] [email or web address] Insurance Assigned Provider 09/19/20 06/17/23 documented as of this encounter Additional Source Comments The information contained in this document represents components of the legal health record. It is not the complete legal health record.[facility]
--- OUTSIDE RECORDS SUMMARY | 2025-03-17 15:05 | XMS_ITS | Encounter Summary ---
Author Organization [facility] Address [address] [facility] [address] [place] [address] Phone Care Team Providers Care Network Operations Technician Name Role Phone Giovanna Garcia NP Primary Care Provider [phone] Geronimo Beltran MD Unavailable [phone] Emely Barnes RN Unavailable [phone] Unknown, Unknown Primary Care Provider Hayley Couch MD Primary Care Provider Encounter Details Date Type Department Care Team (Late st Contact Info) Description 09/30/2020 Procedure Pass [facility], Ct Scan - [address] [address] Social History Tobacco Use Types Packs/Day Years [...] 1:40 PM EST Office Visit [facility] [place] [address] [place] [address] [email or web address] documented as of this encounter Visit Diagnoses [...] documented as of this encounter Care Teams Network Operations Technician Relationship Specialty Start Date End Date Giovanna Garcia NP [email or web address] PCP - General Family Medicine 11/15/17 08/22/23 Unknown, Unknown, PCP - General 08/23/23 03/07/24 Hayley Ni MD [facility] [place] [address] PCP - General Internal Medicine 03/08/24 Geronimo Beltran MD [address] [place] [address] [email or web address] Insurance Assigned Provider 09/19/20 06/17/23 Emely Barnes, RN [address] [place] [address] iCMP Hide Splitter 07/27/21 08/10/21 documented as of this encounter Additional Source Comments The information contained in this document represents components of the legal health record. It is not the complete legal health record.[facility]
--- OUTSIDE RECORDS SUMMARY | 2025-03-17 15:05 | XMS_ITS | Encounter Summary ---
Author Organization [facility] Address [address] [place] [address] Phone Care Team Providers Care Glass Furnace Tender Name Role Phone Giovanna Garcia NP Primary Care Provider [phone] Geronimo Beltran MD Unavailable [phone] Emely Barnes RN Unavailable [phone] Unknown, Unknown Primary Care Provider Hayley Couch MD Primary Care Provider Reason for Referral * MRI/CAT Scan - Closed Specialty Diagnoses / Procedures Referred By Braulio t Referred To Contact Procedures CT Neck Outside (No Interpretation) System, Provider Not In, PhD [address] [address] Referral ID Status Reason Start Date Expiration Date Visits Re quested Visits Authorized [id number] Closed 10/04/2018 10/04/2019 1 1 Encounter Details Date Type Department Care Team (Late st Contact Info) Description 10/04/2018 Ancillary Orders [facility],Outside Imaging [address] [place], [place] [id number] System, Provider Not In, PhD [facility] [employer] [address] [address] Social History Tobacco Use Types Packs/Day Years [...] PM EST Office Visit [facility] [address] [place] [address] Efrain Melgar DO [address] [place] [address] [email or web address] documented as of this encounter Results * [...] documented as of this encounter Care Teams Glass Furnace Tender Relationship Specialty Start Date End Date Giovanna Garcia NP [email or web address] PCP - General Family Medicine 11/15/17 08/22/23 Unknown, Unknown, MD PCP - General 08/23/23 03/07/24 Hayley Ni MD [address] [place] [address] [place] [address] PCP - General Internal Medicine 03/08/24 Geronimo Beltran MD [address] [place] [address] [email or web address] Insurance Assigned Provider 09/19/20 06/17/23 Emely Barnes, RN [address] [place] [address] [email or web address] iCMP Glue Jointer Feeder 07/27/21 08/10/21 documented as of this encounter Additional Source Comments The information contained in this document represents components of the legal health record. It is not the complete legal health record.[facility]
--- OUTSIDE RECORDS SUMMARY | 2025-03-17 15:05 | XMS_ITS | Encounter Summary ---
Author Organization [facility] Address [address] [place] [address] Phone Care Team Providers Care Sephora Operations Consultant Name Role Phone Giovanna Garcia DISMANTLER Primary Care Provider [phone] Geronimo Beltran MD Unavailable [phone] Emely Barnes RN Unavailable [phone] Unknown, Unknown Primary Care Provider Hayley Couch MD Primary Care Provider Encounter Details Date Type Department Care Team (Late st Contact Info) Description 11/16/2020 Ancillary Orders [facility] [address] [facility] 3rd Floor, [address] [place] [address] Patrice Quintero MD [address] [place] [phone] [email or web address] Social History Tobacco Use Types [...] PM EST Office Visit [facility] [address] [place] [address] [place] [address] [email or web address] documented [...] documented as of this encounter Care Teams Sephora Operations Consultant Relationship Specialty Start Date End Date Giovanna Garcia NP PCP - General Family Medicine 11/15/17 08/22/23 Unknown, Unknown, MD PCP - General 08/23/23 03/07/24 Hayley Ni MD [facility] [address] [place] PCP - General Internal Medicine 03/08/24 Geronimo Beltran MD [address] [place] [address] [email or web address] Insurance Assigned Provider 09/19/20 06/17/23 Emely Barnes, RN [address] [place] [address] [email or web address] iCMP Infrastructure Software Engineer 07/27/21 08/10/21 documented as of this encounter Additional Source Comments The information contained in this document represents components of the legal health record. It is not the complete legal health record.[facility]
--- OUTSIDE RECORDS SUMMARY | 2025-03-17 15:05 | XMS_ITS | Encounter Summary ---
Author Organization [facility] Address [address] [facility] [address] [place] [address] Phone Care Team Providers Care Pediatric Nephrologist Name Role Phone Giovanna Garcia DROP COUNT ASSOCIATE Primary Care Provider [phone] Geronimo Beltran MD Unavailable [phone] Emely Barnes RN Unavailable [phone] Unknown, Unknown Primary Care Provider Hayley Couch MD Primary Care Provider Encounter Details Date Type Department Care Team (Late st Contact Info) Description 04/21/2020 Transcribe Orders [facility] 30 [place] [address] Ian Anderson MD, [place] [address] [id number] [email or web address] Social History Tobacco Use Types Packs/Day Years [...] PM EST Office Visit [facility] [address] [place] [address] Efrain Melgar DO 22 [place] [address] [email or web address] documented as of this [...] documented as of this encounter Care Teams Pediatric Nephrologist Relationship Specialty Start Date End Date Giovanna Garcia NP PCP - General Family Medicine 11/15/17 08/22/23 Unknown, Daxa, MD PCP - General 08/23/23 03/07/24 Hayley Ni MD [address] [facility] [place] [address] PCP - General Internal Medicine 03/08/24 Geronimo Beltran MD [address] [place] [address] [email or web address] Insurance Assigned Provider 09/19/20 06/17/23 Emely Barnes, RN [address] [place] [address] [email or web address] iCMP Finish Molder 07/27/21 08/10/21 documented as of this encounter Additional Source Comments The information contained in this document represents components of the legal health record. It is not the complete legal health record.[facility]
--- OUTSIDE RECORDS SUMMARY | 2025-03-17 15:05 | XMS_ITS | Clinical Summary ---
Author Organization [facility] Address [address] [place] [address] Phone Care Team Providers Care Manager Internship Name Role Phone Hayley Ni MD Primary [...] mg total) by mouth daily. 3 Active Riverside Saline 0.65 % nasal spray 2 DRP [...] Date Site/Laterality Comments OTHER SURGICAL HISTORY PROCEDURE: [place] THORACOSCOPY W/LOBECTOMY SINGLE LOBE; COMMENT: right upper [...] age to complete this topic Insurance MEDICARE [facility] [[email or web address]] Care Teams Manager Internship Relationship Specialty Start Date End Date Hayley Ni MD [address] [place] [address] PCP - General 11/10/23
--- OUTSIDE RECORDS SUMMARY | 2025-03-17 15:05 | XMS_ITS | Encounter Summary ---
Author Organization [facility] Address [address] [facility] [address] [place] [address] Phone Care Team Providers Care Counselor/Art Therapist Name Role Phone Giovanna Garcia NP Primary Care Provider [phone] Geronimo Beltran MD Unavailable [phone] Emely Barnes RN Unavailable [phone] Unknown, Unknown Primary Care Provider Hayley Couch MD Primary Care Provider Encounter Details Date Type Department Care Team (Late Contact Info) Description 09/24/2020 Procedure Pass [facility] [address] [place] [address] Social History Tobacco Use Types Packs/Day Years [...] PM EST Office Visit [facility] [address] [place] [address] [place] [address] [email or web address] documented as [...] documented as of this encounter Care Teams Counselor/Art Therapist Relationship Specialty Start Date End Date Giovanna Garcia NP [email or web address] PCP - General Family Medicine 11/15/17 08/22/23 Unknown, Daxa, PCP - General 08/23/23 03/07/24 Hayley Ni MD [facility] [place] [address] PCP - General Internal Medicine 03/08/24 Geronimo Beltran MD [address] [place] [address] [email or web address] Insurance Assigned Provider 09/19/20 06/17/23 Emely Barnes, ABE [address] [place] [address] iCMP Construction Superintendent 07/27/21 08/10/21 documented as of this encounter Additional Source Comments The information contained in this document represents components of the legal health record. It is not the complete legal health record.[facility]
--- OUTSIDE RECORDS SUMMARY | 2025-03-17 15:05 | XMS_ITS | Encounter Summary ---
Author Organization [facility] Address [address] [place] [address] Phone Care Team Providers Care Barrel Header Name Role Phone Giovanna Garcia NP Primary Care Provider [phone] Geronimo Beltran MD Unavailable [phone] Emely Barnes RN Unavailable [phone] Unknown, Unknown Primary Care Provider Hayley Couch MD Primary Care Provider Encounter Details Date Type Department Care Team (Late st Contact Info) Description 06/02/2020 Procedure Pass [facility], Ct Scan - [address] [address] Social History Tobacco Use Types Packs/Day Years [...] 3:39 PM EST Justino España RN * [place] Suicide Severity Rating Scale (Screener/Recent Self-Report) Question [...] PM EST Office Visit [facility] [address] [place] [address] Efrain Melgar DO [address] [place] [address] [email or web address] documented as of this encounter Visit Diagnoses [...] documented as of this encounter Care Teams Barrel Header Relationship Specialty Start Date End Date Giovanna Garcia MIDDLE SCHOOL ASSISTANT PRINCIPAL [email or web address] PCP - General Family Medicine 11/15/17 08/22/23 Unknown, Unknown, MD PCP - General 08/23/23 03/07/24 Hayley Ni MD [address] [place] [address] [place] [address] PCP - General Internal Medicine 03/08/24 Geronimo Beltran MD [address] [place] [address] [email or web address] Insurance Assigned Provider 09/19/20 06/17/23 Emely Barnes, RN [address] [place] [address] [email or web address] iCMP Entry Level Electrician 07/27/21 08/10/21 documented as of this encounter Additional Source Comments The information contained in this document represents components of the legal health record. It is not the complete legal health record.[facility]
--- OUTSIDE RECORDS SUMMARY | 2025-03-17 15:05 | XMS_ITS | Encounter Summary ---
Author Organization [facility] Address [address] [facility] [address] [place] [address] Phone Care Team Providers Care Material Stockkeeper Yard Name Role Phone Giovanna Garcia NP Primary Care Provider [phone] Geronimo Beltran MD Unavailable [phone] Emely Barnes RN Unavailable [phone] Unknown, Unknown Primary Care Provider Hayley Couch MD Primary Care Provider Encounter Details Date Type Department Care Team (Late st Contact Info) Description 09/10/2018 Procedure Pass [facility], [address] [address] Social History Tobacco Use Types Packs/Day Years [...] PM EST Office Visit [facility] [address] [place] [address] Efrain Melgar DO [address] [place] [address] [email or web address] documented as of this encounter [...] documented as of this encounter Care Teams Material Stockkeeper Yard Relationship Specialty Start Date End Date Giovanna Garcia AGRICULTURAL LENDER [email or web address] PCP - General Family Medicine 11/15/17 08/22/23 Unknown, Daxa, MD PCP - General 08/23/23 03/07/[address] [facility] [place] [address] PCP - General Internal Medicine 03/08/24 Geronimo Beltran MD [address] [place] [address] [email or web address] Insurance Assigned Provider 09/19/20 06/17/23 Emely Barnes, RN [address] [place] [address] [email or web address] iCMP Vibration Engineer 07/27/21 08/10/21 documented as of this encounter Additional Source Comments The information contained in this document represents components of the legal health record. It is not the complete legal health record.[facility]
--- OUTSIDE RECORDS SUMMARY | 2025-03-17 15:05 | XMS_ITS | Encounter Summary ---
Author Organization [facility] Address [address] [facility] [address] [place] [address] Phone Care Team Providers Care Laboratory Tech Name Role Phone Giovanna Garcia WILD LIFE MANAGER Primary Care Provider [phone] Geronimo Beltran MD Primary Care Provider [phone] Giovanna Garcia WILD LIFE MANAGER Primary Care Provider [phone] Geronimo Beltran MD Unavailable [phone] Emely Barnes RN Unavailable [phone] Unknown, Unknown Primary Care Provider Hayley Couch MD Primary Care Provider Encounter Details Date Type Department Care Team (Late st Contact Info) Description 09/05/2017 Procedure Pass [place] Admitting Dept - Virtual Department [address] [place] [address] Social History Tobacco Use Types Packs/Day Years [...] PM EST Office Visit [facility] 22 [place] [address] Efrain Melgar DO 22 [place] [address] documented as of this encounter Visit Diagnoses [...] documented as of this encounter Care Teams Laboratory Tech Relationship Specialty Start Date End Date Giovanna Garcia NP PCP - General Family Medicine 08/18/17 09/07/17 Geronimo Beltran MD [address] [place] [address] [email or web address] PCP - General Internal Medicine 09/08/17 11/14/17 Giovanna Garcia NP PCP - General Family Medicine 11/15/17 08/22/23 Unknown, Daxa, PCP - General 08/23/23 03/07/24 Hayley Ni MD [facility] [place] [address] PCP - General Internal Medicine 03/08/24 Geronimo Beltran MD [address] [place] [address] [email or web address] Insurance Assigned Provider 09/19/20 06/17/23 Emely Barnes, RN [address] [place] [address] [email or web address] iCMP Perianesthesia Rn 07/27/21 08/10/21 documented as of this encounter Additional Source Comments The information contained in this document represents components of the legal health record. It is not the complete legal health record.[facility]
--- OUTSIDE RECORDS SUMMARY | 2025-03-17 15:05 | XMS_ITS | Encounter Summary ---
Author Organization [facility] Address [address] [facility] [address] [place] [address] Phone Care Team Providers Care Event Sales Assistant Name Role Phone Giovanna Garcia MANAGER LAUNDRY Primary Care Provider [phone] Geronimo Beltran MD Unavailable [phone] Emely Barnes RN Unavailable [phone] Unknown, Unknown Primary Care Provider Hayley Couch MD Primary Care Provider Encounter Details Date Type Department Care Team (Late st Contact Info) Description 02/16/2021 Ancillary Orders Non-Invasive Cardiology [address] [place] [address] Patrice Quintero MD [address] [place] [address] [email or web address] Syncope and collapse Social History [...] PM EST Office Visit [facility] [address] [place] [address] RamónEfrain, [address] [place] [address] [email or web address] documented as of this encounter Results * DEVICE CHECK: ILR IN-HOME INTERROGATION (02/16/2021 9:45 AM EDT) Narrative Patrice Quintero MD - 02/21/2021 2:58 PM EDT Remote interrogation of implantable loop recorder. 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[email or web address] Symptoms: 0 Pauses: 0 Bradycardia: 0 Tachycardia: [...] documented as of this encounter Care Teams Event Sales Assistant Relationship Specialty Start Date End Date Giovanna Garcia NP [email or web address] PCP - General Family Medicine 11/15/17 08/22/23 Unknown, Daxa, PCP - General 08/23/23 03/07/24 Hayley Ni MD [address] [place] [address] [place] [address] PCP - General Internal Medicine 03/08/24 Geronimo Beltran MD [address] [place] [address] [email or web address] Insurance Assigned Provider 09/19/20 06/17/23 Emely Barnes, RN [address] [place] [address] [email or web address] iCMP Director [employer] 07/27/21 08/10/21 documented as of this encounter Additional Source Comments The information contained in this document represents components of the legal health record. It is not the complete legal health record.[facility]
--- OUTSIDE RECORDS SUMMARY | 2025-03-17 15:05 | XMS_ITS | Encounter Summary ---
Author Organization [facility] Address [address] [place] [address] Phone Care Team Providers Care Study Lead Name Role Phone Giovanna Garcia NP Primary Care Provider [phone] Geronimo Beltran MD Unavailable [phone] Emely Barnes RN Unavailable [phone] Unknown, Unknown Primary Care Provider Hayley Couch MD Primary Care Provider Encounter Details Date Type Department Care Team (Late st Contact Info) Description 08/10/2021 Procedure Pass [address] [place] [address] Social History Tobacco Use Types Packs/Day Years [...] high school, GED, job training, learning the Grenadian language, technical skills, or developing parenting skills)? [...] PM EST Office Visit [facility] [address] [place] [address] Efrain Melgar DO [address] [place] [address] documented as of this encounter Visit Diagnoses Not on filedocumented in this encounter Additional Health Concerns Infection Onset Date Last Indicated Resolved Time CoV-Risk 03/29/2022 03/29/2022 04/09/2022 1:22 AM EDT Assessment Noted Time PHQ-2 Depression Total Score: 2 08/11/19 22 9:20 AM EST documented as of this encounter Care Teams Study Lead Relationship Specialty Start Date End Date Giovanna Garcia, SENIOR NETWORK SECURITY ARCHITECT [email or web address] PCP - General Family Medicine 11/15/17 08/22/23 Unknown, Daxa, MD PCP - General 08/23/23 03/07/24 Hayley Ni MD [address] [place] [address] [place] [address] PCP - General Internal Medicine 03/08/24 Geronimo Beltran MD [address] [place] [address] [email or web address] Insurance Assigned Provider 09/19/20 06/17/23 Emely Barnes, RN [address] [place] [address] [email or web address] iCMP Software Applications Designer 07/27/21 08/10/21 documented as of this encounter Additional Source Comments The information contained in this document represents components of the legal health record. It is not the complete legal health record.[facility]
--- OUTSIDE RECORDS SUMMARY | 2025-03-17 15:05 | XMS_ITS | Encounter Summary ---
Author Organization [facility] Address [address] [place] [address] Phone Care Team Providers Care Supportability Engineer Name Role Phone Giovanna Garcia NP Primary Care Provider [phone] Geronimo Beltran MD Unavailable [phone] Unknown, Unknown Primary Care Provider Hayley Couch MD Primary Care Provider Encounter Details Date Type Department Care Team (Late st Contact Info) Description 11/02/2021 Ancillary Orders [facility] [address] 3rd Floor, [address] [place] [address] Patrice Quintero MD [address] [place] [phone] [email or web address] Social History Tobacco Use Types Packs/Day Years [...] high school, GED, job training, learning the Brazilian language, technical skills, or developing parenting skills)? [...] PM EST Office Visit [facility] 22 [place] [address] Efrain Melgar DO [address] [place] [address] documented as of this encounter Visit Diagnoses Not on filedocumented in this encounter Additional Health Concerns Infection Onset Date Last Indicated Resolved Time CoV-Risk 03/29/2022 03/29/2022 04/09/2022 1:22 AM EDT Assessment Noted Time PHQ-2 Depression Total Score: 2 08/11/19 22 9:20 AM EST documented as of this encounter Care Teams Supportability Engineer Relationship Specialty Start Date End Date Giovanna Garcia NP [email or web address] PCP - General Family Medicine 11/15/17 08/22/23 Unknown, Unknown, MD PCP - General 08/23/23 03/07/24 Hayley Ni MD [facility] [place] [address] PCP - General Internal Medicine 03/08/24 Geronimo Beltran MD [address] [place] [address] [email or web address] Insurance Assigned Provider 09/19/20 06/17/23 documented as of this encounter Additional Source Comments The information contained in this document represents components of the legal health record. It is not the complete legal health record.[facility]
--- OUTSIDE RECORDS SUMMARY | 2025-03-17 15:05 | XMS_ITS | Encounter Summary ---
Author Organization [facility] Address [address] [place] [address] Phone Care Team Providers Care Corporate Executive Name Role Phone Giovanna Garcia NP Primary Care Provider [phone] Geronimo Beltran MD Unavailable [phone] Unknown, Unknown Primary Care Provider Hayley Couch MD Primary Care Provider Encounter Details Date Type Department Care Team (Late st Contact Info) Description 11/10/2021 Procedure Pass [facility], Ct Scan - [address] [id number] Social History Tobacco Use Types Packs/Day Years [...] high school, GED, job training, learning the Sw[place] language, technical skills, or developing parenting skills)? [...] 1:40 PM EST Office Visit [facility] [address] [place] [address] Efrain Melgar DO [address] [place] [address] documented as of this encounter Visit Diagnoses Not on filedocumented in this encounter Additional Health Concerns Infection Onset Date Last Indicated Resolved Time CoV-Risk 03/29/2022 03/29/2022 04/09/2022 1:22 AM EDT Assessment Noted Time PHQ-2 Depression Total Score: 2 08/11/19 9:20 AM EST documented as of this encounter Care Teams Corporate Executive Relationship Specialty Start Date End Date Giovanna Garcia NP [email or web address] PCP - General Family Medicine 11/15/17 08/22/23 Unknown, Unknown, PCP - General 08/23/23 03/07/24 Hayley Ni MD [address] [place] [address] [place] [address] PCP - General Internal Medicine 03/08/24 Geronimo Beltran MD [address] [place] [address] [email or web address] Insurance Assigned Provider 09/19/20 06/17/23 documented as of this encounter Additional Source Comments The information contained in this document represents components of the legal health record. It is not the complete legal health record.[facility]
--- OUTSIDE RECORDS SUMMARY | 2025-03-17 15:05 | XMS_ITS | Encounter Summary ---
Author Organization [facility] Address [address] [place] [address] Phone Care Team Providers Care Assembler Wet Wash Name Role Phone Giovanna Garcia NP Primary Care Provider [phone] Geronimo Beltran MD Unavailable [phone] Emely Barnes RN Unavailable [phone] Unknown, Unknown Primary Care Provider Hayley Couch MD Primary Care Provider Encounter Details Date Type Department Care Team (Late st Contact Info) Description 12/26/2019 Ancillary [facility] [address] Floor, [address] [place] [address] Diana Hopkins, BLENDER / COOK [address] [place] [address] [email or web address] Palpitations Social History Tobacco Use Types [...] PM EST Office Visit [facility] [address] [place] [address] Efrain Melgar DO [address] [place] [address] [email or web address] [email or web address] Orders Name Type Priority Associated Diagnoses [...] documented as of this encounter Care Teams Assembler Wet Wash Relationship Specialty Start Date End Date Giovanna Garcia, MAINFRAME ANALYST PCP - General Family Medicine 11/15/17 08/22/23 Unknown, Unknown, MD PCP - General 08/23/23 03/07/24 Hayley Ni MD [address] [place] [address] [place] [address] PCP - General Internal Medicine 03/08/24 Geronimo Beltran MD [address] [place] [address] [email or web address] Insurance Assigned Provider 09/19/20 06/17/23 Emely Barnes, RN [address] [place] [address] [email or web address] iCMP Licensed Loan Officer 07/27/21 08/10/21 documented as of this encounter Additional Source Comments The information contained in this document represents components of the legal health record. It is not the complete legal health record.[facility]
--- OUTSIDE RECORDS SUMMARY | 2025-03-17 15:05 | XMS_ITS | Encounter Summary ---
Author Organization [facility] Address [address] [facility] [address] [place] [address] Phone Care Team Providers Care Numerical Control Router Operator Name Role Phone Giovanna Garcia NP Primary Care Provider [phone] Geronimo Beltran MD Unavailable [phone] Emely Barnes RN Unavailable [phone] Unknown, Unknown Primary Care Provider Hayley Couch MD Primary Care Provider Encounter Details Date Type Department Care Team (Late Contact Info) Description 09/30/2020 Procedure Pass [facility] [address] [place] [address] Social History Tobacco Use Types Packs/Day Years [...] PM EST Office Visit [facility] [address] [place] [address] [place] [address] [email or web address] documented [...] documented as of this encounter Care Teams Numerical Control Router Operator Relationship Specialty Start Date End Date Giovanna Garcia NP [email or web address] PCP - General Family Medicine 11/15/17 08/22/23 Unknown, [place], PCP - General 08/23/23 03/07/24 Hayley Ni MD [facility] [place] [address] PCP - General Internal Medicine 03/08/24 Geronimo Beltran MD [address] [place] [address] [email or web address] Insurance Assigned Provider 09/19/20 06/17/23 Emely Barnes, ABE [address] [place] [address] iCMP Meat Manager 07/27/21 08/10/21 documented as of this encounter Additional Source Comments The information contained in this document represents components of the legal health record. It is not the complete legal health record.[facility]
--- OUTSIDE RECORDS SUMMARY | 2025-03-17 15:05 | XMS_ITS | Encounter Summary ---
Author Organization [facility] Address [address] [facility] [address] [place] [address] Phone Care Team Providers Care Gravel Wheeler Name Role Phone Giovanna Garcia NP Primary Care Provider [phone] Geronimo Beltran MD Unavailable [phone] Emely Barnes RN Unavailable [phone] Unknown, Unknown Primary Care Provider Hayley Couch MD Primary Care Provider Encounter Details Date Type Department Care Team (Late st Contact Info) Description 11/16/2020 Procedure Pass [facility] [address] [place] [address] Social History Tobacco Use Types Packs/Day Years [...] PM EST Office Visit [facility] [address] [place] [address] Efrain Melgar DO 22 [place] [address] [email or web address] [...] documented as of this encounter Care Teams Gravel Wheeler Relationship Specialty Start Date End Date Giovanna Garcia NP [email or web address] PCP - General Family Medicine 11/15/17 08/22/23 Unknown, Unknown, PCP - General 08/23/23 03/07/24 Hayley Ni MD [facility] [place] [address] PCP - General Internal Medicine 03/08/24 Geronimo Beltran MD [address] [place] [address] [email or web address] Insurance Assigned Provider 09/19/20 06/17/23 Emely Barnes, ABE [address] [place] [address] iCMP Goring Cutter 07/27/21 08/10/21 documented as of this encounter Additional Source Comments The information contained in this document represents components of the legal health record. It is not the complete legal health record.[facility]
--- OUTSIDE RECORDS SUMMARY | 2025-03-17 15:05 | XMS_ITS | Encounter Summary ---
Author Organization [facility] Address [address] [employer] [facility] [address] [place] [address] Phone Care Team Providers Care Lubrication Technician Name Role Phone Giovanna Garcia CONSTRUCTION AREA MANAGER Primary Care Provider [phone] Geronimo Beltran MD Unavailable [phone] Emely Banres RN Unavailable [phone] Unknown, Unknown Primary Care Provider Hayley Couch MD Primary Care Provider Encounter Details Date Type Department Care Team (Late st Contact Info) Description 11/16/2020 Ancillary Orders Non-Invasive Cardiology [address] [place] [address] Patrice Quintero MD [address] [place] [address] [email or web address] Syncope and collapse Social [...] 1:40 PM EST Office Visit [facility] [address] [place] [address] RamónEfrain, DO [address] [place] [address] [email or web address] documented as of this encounter Results * (ABNORMAL) DEVICE CHECK: ILR IN-HOME INTERROGATION (11/16/2020 10:16 AM EDT) Narrative Patrice Quintero MD - 11/23/2020 1:10 PM EDT Remote interrogation of implantable loop recorder. 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 PCP - General Family Medicine 11/15/17 08/22/23 Unknown, Unknown, MD PCP - General 08/23/23 03/07/24 Hayley Ni MD [facility] [place] [address] PCP - General Internal Medicine 03/08/24 Geronimo Beltran MD [address] [place] [address] [email or web address] Insurance Assigned Provider 09/19/20 06/17/23 Emely Barnes, RN [address] [place] [address] [email or web address] iCMP Outside Production Inspector 07/27/21 08/10/21 documented as of this encounter Additional Source Comments The information contained in this document represents components of the legal health record. It is not the complete legal health record.[facility]
--- OUTSIDE RECORDS SUMMARY | 2025-03-17 15:06 | XMS_ITS | Encounter Summary ---
Author Organization [facility] Address [email or web address] [place] [address] Phone Care Team Providers Care Electrical/Instrument Technician Name Role Phone Giovanna Garcia VESSEL SCRAPPER Primary Care Provider [phone] Geronimo Beltran MD Unavailable [phone] Emely Barnes RN Unavailable [phone] Unknown, Unknown Primary Care Provider Hayley Couch MD Primary Care Provider Encounter Details Date Type Department Care Team (Late st Contact Info) Description 02/16/2021 Ancillary Orders [facility] [address] [facility] 3rd Floor, [address] [place] [address] Patrice Quintero MD [address] [place] [phone] [email or web address] Social History Tobacco Use Types Packs/Day Years [...] PM EST Office Visit [facility] [address] [place] [address] [place] [address] [email or web address] documented as of this encounter Visit Diagnoses [...] documented as of this encounter Care Teams Electrical/Instrument Technician Relationship Specialty Start Date End Date Giovanna Garcia NP PCP - General Family Medicine 11/15/17 08/22/23 Unknown, Unknown, MD PCP - General 08/23/23 03/07/24 Hayley Ni MD [facility] [address] [place] PCP - General Internal Medicine 03/08/24 Geronimo Beltran MD [address] [place] [address] [email or web address] Insurance Assigned Provider 09/19/20 06/17/23 Emely Barnes, RN [address] [place] [address] [email or web address] iCMP Turning Sander Operator 07/27/21 08/10/21 documented as of this encounter Additional Source Comments The information contained in this document represents components of the legal health record. It is not the complete legal health record.[facility]
--- OUTSIDE RECORDS SUMMARY | 2025-03-17 15:06 | XMS_ITS | Encounter Summary ---
Author Organization [facility] Address [address] [employer] [facility] [address] [place] [address] Phone Care Team Providers Care Software Engineer Intern Name Role Phone Giovanna Garcia NP Primary Care Provider [phone] Geronimo Beltran MD Unavailable [phone] Emely Barnes RN Unavailable [phone] Unknown, Unknown Primary Care Provider Hayley Couch MD Primary Care Provider Encounter Details Date Type Department Care Team (Late Contact Info) Description 03/20/2019 Ancillary Orders [facility] [address] [place], [place] [id number] System, Provider Not In, [place] [address] Social History Tobacco Use Types Packs/Day Years [...] 1:40 PM EST Office Visit [facility] [address] [place] [address] [place] [address] Efrain Melgar DO [address] [place] [address] [email or web address] documented as of this encounter Results * [...] documented as of this encounter Care Teams Software Engineer Intern Relationship Specialty Start Date End Date Giovanna Garcia NP [email or web address] PCP - General Family Medicine 11/15/17 08/22/23 Unknown, Unknown, MD PCP - General 08/23/23 03/07/24 Hayley Ni MD [address] [place] [address] [place] [address] PCP - General Internal Medicine 03/08/24 Geronimo Beltran MD [address] [place] [address] [email or web address] Insurance Assigned Provider 09/19/20 06/17/23 Emely Barnes, RN [address] [place] [address] [email or web address] iCMP Librarian 07/27/21 08/10/21 documented as of this encounter Additional Source Comments The information contained in this document represents components of the legal health record. It is not the complete legal health record.[facility]
--- OUTSIDE RECORDS SUMMARY | 2025-03-17 15:06 | XMS_ITS | Clinical Summary ---
Author Organization [facility] Address [address] [facility] [facility] [address] [place] [address] Phone Care Team Providers Care Hand Almond Blancher Name Role Phone Hayley Ni MD Primary [...] done soon after waking up at a [facility] facility. Vitamin D deficiency 09/23/2024 Assessment [...] do dexamethasone suppression test to rule out [place] syndrome. She will benefit from antiresorptive medications [...] intake. I asked her to buy Citracal [id number] she should take 2 tablets daily preferably [...] hopefully, they will again be available at [facility]. Syncope 03/10/2020 Assessment & Plan (07/06/2020 1:37 PM EST): No recurrence of any syncope, near syncope, or seizure symptoms recently. We will continue to check her loop recorder routinely. Assessment & Plan (03/11/2020 5:49 PM EDT): Question brought on by atrial fibrillation, versus seizure --Continue manager strategic. Implantable loop recorder being planned for Monday [...] seen vaginal bleeding or bleeding with intercourse Clinical Research Specialist exam normal Offered estrace topically Psychophysiological insomnia [...] she has elevated risk of stroke her [id number] score of 3 with 3.2% adjusted stroke [...] Team Description 02/06/2025 1:30 PM EDT Infusion [facility] [address] [place] [address] Efrain Melgar DO Age-related osteoporosis without current pathological fracture (Primary Dx) 01/10/2025 8:18 AM EDT - 01/10/2025 11:59 PM EDT Hospital Encounter [facility] Laboratory [address] [place] [address] Efrain Melgar DO Discharge Disposition: Home or Self Care 01/09/2025 3:00 PM EDT Office Visit [facility] [address] [place] [address] Efrain Melgar DO Age-related osteoporosis without current pathological fracture (Primary Dx); Elevated cortisol level; Vitamin D deficiency 12/23/2024 8:54 AM EDT - 12/23/2024 11:59 PM EDT Hospital Encounter [facility] Laboratory [address] [place] [address] Efrain Melgar DO Discharge Disposition: Home or Self Care 12/20/2024 Refill [facility] [address] [place] [address] Efrain Melgar DO Medication Refill from Last 3 Months Immunizations Immunization Administration Dates Next Due INFLUENZA, SPLIT VIRUS, TRIVALENT PF 03/04/2016, 06/03/2015 INFLUENZA, SPLIT VIRUS, TRIV ALENT W/ PRESERVATIVE IM 03/12/2021,03/12/2019,01/31/2017,03/27,02/16/2011 Influenza High-Dose Quadriva lent Preservative Free IM 04/28/2022,05/31/2021,03/26/2020,03/12(Deferred: Not Available From Loans Consultant) Influenza Quadrivalent Prese rvative Free IM 03/20/2019,03/20/2018 [...] PM EST Office Visit [facility] [address] [place] [address] Efrain Melgar DO [address] [place] [address] Health Maintenance Due Date Last Done Comments ZOSTER VACCINES (1 of 2) 1973 COLOGUARD 1999 FIT TEST 1999 FOBT 1999 SIGMOIDOSCOPY 1999 VIRTUAL COLONOSCOPY 1999 RSV VACCINE (1 - Risk 50-74 years 1-dose series) 2004 MAMMOGRAM 05/28/2021 05/28/2019, 06/2 06/2016, 09/29/2016, Additional [...] this topic Medical Devices Implanted Type Area Loans Consultant Device Identifier Shelf Expiration Date Model / Serial / Lot Monitor Cardiac Implantable And Patient Home Monitor Mycarelink - [id number] Implanted:Qty: 1 on 03/20/2020 by Radu Somers MD at [facility] Implantable Monitor [employer] 11/23/2020 LINNILAMYS / [id number] / Procedures Procedure Name Priority Date/Time Associated [...] D (TOTAL) 44 30 - 60 ng/mL [facility] Blood 01/10/2025 8:19 AM EDT 01/10/2025 8:20 AM EDT us Efrain Ramón DO LAB BLOOD ORDERABLES Final Resul t Performing Organization Address City/[facility]/ZIP Co de Phone Number [address] [address] * Timed urine data (12/23/2024 8:30 AM EDT) COLLECTION DATA 24 [facility] TOTAL VOLUME 900 mL [facility] 12/23/2024 8:30 AM EDT 12/23/2024 8:59 AM EDT us Efrain Melgar DO URINE ORDERABLES Final Result Performing Organization Address [facility] Co de Phone Number [address] [address] * Calcium, 24 hour urine (12/23/2024 8:30 AM EDT) URINE CALCIUM 11.8 mg/dL [facility] CALCIUM OUTPUT 106 100 - 300 mg/total output [facility] Urine (Urine) 12/23/2024 8:3 0 AM EDT 12/23/2024 8:59 AM EDT us Efrain Melgar DO URINE ORDERABLES Final Result Performing Organization Address [facility]/ZIP Co de Phone Number [address] [address] * Creatinine, 24 hr urine (12/23/2024 8:30 AM EDT) URINE CREATININE 80 mg/dL [facility] CREATININE OUTPUT 720 600 - 1,800 mg/total output [facility] Urine (Urine) 12/23/2024 8:3 0 AM EDT 12/23/2024 8:59 AM EDT us Efrain Melgar DO URINE ORDERABLES Final Result Performing Organization Address [facility] Co de Phone Number [address] [address] * (ABNORMAL) Comprehensive metabolic panel (06/17/2024 8:43 AM EST) SODIUM 139 133 - 146 mmol/L [facility] POTASSIUM 3.4 3.3 - 5.1 mmol/L [facility] CHLORIDE 94(L) 96 - 108 mmol/L [facility] CO2 32 21 - 35 mmol/L [facility] BUN 19 6 - 19 mg/dL [facility] CREATININE 0.70 0.5 - 1.5 mg/dL [facility] GLUCOSE 112(H) 70 - 99 mg/dL [facility] ALBUMIN 4.6 3.9 - 4.8 g/dL [facility] TOTAL PROTEIN 8.0 6.5 - 8.0 g/dL [facility] CALCIUM 10.0 8.4 - 10.3 mg/dL [facility] ALKALINE PHOSPHATASE 132(H) 39 - 117 U/L [facility] TOTAL BILIRUBIN 0.3 0.0 - 1.2 mg/dL [facility] AST 19 0 - 37 U/L [facility] ALT 12 0 - 40 U/L [facility] GLOBULIN 3.4 1 - 4.8 g/dL [facility] EGFR 93 >59 mL/min/1.7 3m2 [facility] Comment:Estimated glomerular filtration rate calculated using the CKD-EPI refit equation. ANION GAP 16 10 - 20 mmol/L [facility] Blood 06/17/2024 8:43 AM EST 06/17/2024 8:50 AM EST Efrain Melgar DO LAB BLOOD ORDERABLES Final Resul t [address] [address] * (ABNORMAL) Lipid panel (06/16/2020 10:50 AM EST) HDL 62 mg/dL [facility] Comment: Interpretation <40 mg/dL: Low HDL cholesterol (major risk factor for CHD) Greater than or equal to 60 mg/dL: High HDL cholesterol ( negative risk factor for CHD) HDL - cholesterol is affected by a number of factors, e.g. smoking, excerise, hormones, sex and age. CHOLESTEROL 250(H) 0 - 240 mg/dL [facility] TRIGLYCERIDES 145 30 - 160 mg/dL [facility] LDL 159(H) 50 - 129 mg/dL [facility] Comment: LDL levels in terms of risk for coronary heart disease: <100 mg/dL: Optimal 100-129 mg/dL: Near or above optimal 130-159 mg/dL: Borderline high 160-189 mg/dL: High >190 mg/dL: Very High CARDIAC RISK RATIO 4.0 3.3 - 4.4 [facility] Blood 06/16/2020 10:5 0 AM EST 06/16/2020 10:58 AM EST us Giovanna Garcia NP LAB BLOOD ORDERABLES Final Resu lt [address] [address] * Pap Smear (12/24/2019 12:00 AM EDT) 12/24/2019 12/26/2019 3:0 7 PM EDT Narrative SEE NARRATIVE - 01/03/2020 2:55 PM EDT [address] [address] Glass Lined Tank Repairer: Erna Brown MD OCEAN FREIGHT FORWARDER Cytology Report FINAL DIAGNOSIS A. PAP SMEAR [...] 52, 56, 58, 59, 66, 68) by Blurtt Onclarity HR-HPV analysis. Clinical correlation is advised. This HPV test was performed at [facility], [address] [place] [address]. This test has been FDA approved for SurePath cervical cytology specimens. The accuracy and precision of this test for all other specimen sources has been verified in the Cytopathology Laboratory of the [facility] and has not been cleared or approved by the U.S. Food and Drug Administration. Clinical correlation is advised. CLINICAL HISTORY Date of Last Menstrual Period: Not Provided Menstrual History: Post Menopausal Other Clinical Conditions: Screening Pap SPECIMEN SOURCE A: PAP SMEAR (SUREPATH) CE Patient Name: ZAYNAB MCGUIRE : 1955 (Age: 64) Sex: F Institution: [facility] Location: [facility] Date of Collection: 12/24/2019 Date [...] (12/11/2018 3:41 PM EDT) HCV Negative Negative [facility] Comment: This is a screening test and should be confirmed with molecular testing Blood 12/11/2018 3:41 PM EDT 12/11/2018 3:48 PM EDT Giovanna Garcia NP LAB BLOOD ORDERABLES Final Resu lt [facility] [address] [place] [address] * COLONOSCOPY FOR RESULT ENTRY ONLY (12/10/2014) Colonoscopy . us Historical Provider MD HEALTH MAINTENANCE Final Result from Last 3 Months or Most Recently Relevant to Health Maintenance Insurance MEDICARE PART A & B ZEFR MEDEX SUPPLEMENT MEDICARE PART A & B ZEFR MEDEX SUPPLEMENT MEDICARE PART A & B ZEFR MEDEX SUPPLEMENT MEDICARE PART A & B ZEFR MEDEX SUPPLEMENT MEDICARE PART A & B ZEFR MEDEX SUPPLEMENT MEDICARE PART A & B ZEFR MEDEX SUPPLEMENT MEDICARE PART A & B ZEFR MEDEX SUPPLEMENT MEDICARE PART A & B [employer] [place] MEDEX SUPPLEMENT MEDICARE PART A & B BLUE CROSS MEDEX SUPPLEMENT Advance Directives For more information, please contact: [phone] (9AM - 5PM [facility], Monday-Monday) Documents on File Type Date Recorded Patient Checker Loader Expl anation Healthcare Proxy 04/30/2019 9:07 AM [...] Comments Code Discussion Comments: Patient Care Teams Hand Almond Blancher Relationship Specialty Start Date End Date Hayley Ni MD [address] [place] [address] PCP - General Internal Medicine 03/08/24 Additional Source Comments The information contained in this document represents components of the legal health record. It is not the complete legal health record.[facility]
--- OUTSIDE RECORDS SUMMARY | 2025-03-17 15:06 | XMS_ITS | Encounter Summary ---
Author Organization [facility] Address [address] [facility] [address] [place] [address] Phone Care Team Providers Care Buffing Wheel Former Machine Name Role Phone Giovanna Garcia NP Primary Care Provider [phone] Geronimo Beltran MD Unavailable [phone] Emely Barnes RN Unavailable [phone] Unknown, Unknown Primary Care Provider Hayley Couch MD Primary Care Provider Reason for Referral * MRI/CAT Scan - Closed Specialty Diagnoses / Procedures Referred By Braulio sheehan Referred To Contact Radiology Diagnoses Memory loss Hx of cancer of lung Procedures MRI Brain Efrain Elliott MD Phone: tel: fax: [email or web address] Referral ID Status Reason Start Date Expiration Date Visits Re quested Visits Authorized [id number] Closed 02/01/2021 02/01/2022 1 1 Encounter Details Date Type Department Care Team (Latest Contact Info) Description 02/01/2021 Transcribe Orders Virtual Department [address] [place] [address] Efrain Elliott MD [address] [place] [address], [address] [place], [place] [id number] [email or web address] Memory loss (Primary Dx); Hx [...] 1:40 PM EST Office Visit [facility] [address] [place] [address] Efrain Melgar DO [address] [place] [address] documented as of this encounter Results * [...] documented as of this encounter Care Teams Buffing Wheel Former Machine Relationship Specialty Start Date End Date Giovanna Garcia NP [email or web address] PCP - General Family Medicine 11/15/17 08/22/23 Unknown, Unknown, MD PCP - General 08/23/23 03/07/24 Hayley Ni MD [facility] [place] [address] PCP - General Internal Medicine 03/08/24 Geronimo Beltrna MD [address] [place] [address] [email or web address] Insurance Assigned Provider 09/19/20 06/17/23 Emely Barnes, RN [address] [place] [address] [email or web address] iCMP Garment Inspector 07/27/21 08/10/21 documented as of this encounter Additional Source Comments The information contained in this document represents components of the legal health record. It is not the complete legal health record.[facility]
--- OUTSIDE RECORDS SUMMARY | 2025-03-17 15:06 | XMS_ITS | Encounter Summary ---
Author Organization [facility] Address [address] [facility] [address] [place] [address] Phone Care Team Providers Care Pediatric Nurse Name Role Phone Giovanna Garcia NP Primary Care Provider [phone] Geronimo Beltran MD Unavailable Emely Barnes RN Unavailable [phone] Unknown, Unknown Primary Care Provider Hayley Couch MD Primary Care Provider Reason for Referral * MRI/CAT Scan - Closed Specialty Diagnoses / Procedures Referred By Braulio sheehan Referred To Contact Radiology Diagnoses White matter disease, unspecified Numbness Procedures MRI Thoracic Spine Efrain Elliott MD Phone: tel: fax: [email or web address] Referral ID Status Reason Start Date Expiration Date Visits Re quested Visits Authorized [id number] Closed 03/17/2020 03/17/2021 1 1 Encounter Details Date Type Department Care Team (Latest Contact Info) Description 03/17/2020 Transcribe Orders Virtual Department [address] [place] [address] Efrain Elliott MD [address] [place] [address], [address] [place], [place] [phone] [email or web address] White matter disease, unspecified (Primary [...] PM EST Office Visit [facility] [address] [place] [address] Efrain Melgar DO [address] [place] [address] [email or web address] 3. No disc protrusion or stenosis. POS [id number] Narrative 03/26/2020 9:49 AM EDT TECHNIQUE: 1.5 [...] 3. No disc protrusion or stenosis. POS [id number] Efrain Elliott MD IMG MR XSPECIALTY Final [...] as of this encounter Care Teams Pediatric Nurse Relationship Specialty Start Date End Date Giovanna Garcia NP [email or web address] PCP - General Family Medicine 11/15/17 08/22/23 Unknown, Daxa, PCP - General 08/23/23 03/07/24 Hayley Ni MD [facility] [place] [address] PCP - General Internal Medicine 03/08/24 Geronimo Beltran MD [address] [place] [address] [email or web address] Insurance Assigned Provider 09/19/20 06/17/23 Emely Barnes, ABE [address] [place] [address] [email or web address] iCMP Coroner Transport Technician 07/27/21 08/10/21 documented as of this encounter Additional Source Comments The information contained in this document represents components of the legal health record. It is not the complete legal health record.[facility]
--- OUTSIDE RECORDS SUMMARY | 2025-03-17 15:06 | XMS_ITS | Encounter Summary ---
Author Organization [facility] Address [address] [facility] [address] [place] [address] Phone Care Team Providers Care Offset Press Operator Name Role Phone Giovanna Garcia NP Primary Care Provider [phone] Geronimo Beltran MD Unavailable [phone] Emely Barnes RN Unavailable [phone] Unknown, Unknown Primary Care Provider Hayley Couch MD Primary Care Provider Encounter Details Date Type Department Care Team (Late st Contact Info) Description 03/10/2020 Procedure Pass [facility], Ct Scan - [address] [address] Social History Tobacco Use Types Packs/Day Years [...] 1:40 PM EST Office Visit [facility] [place] [address] Efrain Melgar DO [address] [place] [address] [email or web address] documented as [...] documented as of this encounter Care Teams Offset Press Operator Relationship Specialty Start Date End Date Giovanna Garcia NP [email or web address] PCP - General Family Medicine 11/15/17 08/22/23 Unknown, Unknown, MD PCP - General 08/23/23 03/07/24 Hayley Ni MD [facility] [place] [address] PCP - General Internal Medicine 03/08/24 Geronimo Beltran MD [address] [place] [address] [email or web address] Insurance Assigned Provider 09/19/20 06/17/23 Emely Barnes, ABE [address] [place] [address] [email or web address] iCMP Customs Compliance Analyst 07/27/21 08/10/21 documented as of this encounter Additional Source Comments The information contained in this document represents components of the legal health record. It is not the complete legal health record.[facility]
--- OUTSIDE RECORDS SUMMARY | 2025-03-17 15:06 | XMS_ITS | Patient Health Record ---
Author Organization [facility] Address [address] [place] [address] Care Team Providers Care Mechanical Piping Designer Name Role Phone Abigail Em MD Primary Care Provider Noah Hummel [phone] Allergies Allergen (clinical drug ingredient) Drug/Non Drug [...] Problem Status W/U Status Risk Notes Problem 348492571 Encounter for screening for malignant neoplasm of colon (Z12.11) Active confirmed Problem 283546052 History of adenomatous polyp of colon (Z86.010) Active confirmed Problem Nausea and vomiting (76747076) Nausea with vomiting, unspecified (R11.2) Active confirmed Problem 946013089 Gastroesophageal reflux disease without esophagitis (K21.9) Active confirmed Problem 79601795 Dysphagia, unspecified type (R13.10) Active confirmed Problem Acute diarrhea (271557416) Acute diarrhea (R19.7) Active confirmed Plan Of [...] Date MEDICARE OF [place] [address] [facility] [address] [phone] [id number] VJ MCGUIRE Self - patient is the insured MEDEX ATTN CLAIMS [address] [place] [address] [id number] VJ MCGUIRE Self - patient is [...] check for sleep apnea Pneumonia in 09/2015--at [facility] Hypertension Grand mal seizure 02/2020 at [facility] Atrial fibrillation with a l oop [...]
--- OUTSIDE RECORDS SUMMARY | 2025-03-17 15:06 | XMS_ITS | Encounter Summary ---
Author Organization [facility] Address [address] [facility] [address] [place] [address] Phone Care Team Providers Care Loss Prevention/Safety District Manager Name Role Phone Giovanna Garcia NP Primary Care Provider [phone] Geronimo Beltran MD Unavailable [phone] Emely Barnes RN Unavailable [phone] Unknown, Unknown Primary Care Provider Hayley Couch MD Primary Care Provider Encounter Details Date Type Department Care Team (Late Contact Info) Description 03/20/2019 Ancillary Orders [facility] [address] [place], [place] [phone] System, Provider Not In, [place] [address] Social History Tobacco Use Types Packs/Day Years [...] PM EST Office Visit [facility] [address] [place] [address] [place] [address] Efrain Melgar DO [address] [place] [address] [email or web address] documented as of this encounter Results * [...] documented as of this encounter Care Teams Loss Prevention/Safety District Manager Relationship Specialty Start Date End Date Giovanna Garcia NP [email or web address] PCP - General Family Medicine 11/15/17 08/22/23 Unknown, Unknown, MD PCP - General 08/23/23 03/07/24 Hayley Ni MD [address] [place] [address] [place] [address] PCP - General Internal Medicine 03/08/24 Geronimo Beltran MD [address] [place] [address] [email or web address] Insurance Assigned Provider 09/19/20 06/17/23 Emely Barnes, RN [address] [place] [address] [email or web address] iCMP Strategic Manager 07/27/21 08/10/21 documented as of this encounter Additional Source Comments The information contained in this document represents components of the legal health record. It is not the complete legal health record.[facility]
--- OUTSIDE RECORDS SUMMARY | 2025-03-17 15:06 | XMS_ITS | Encounter Summary ---
Author Organization [facility] Address [address] [facility] [address] [place] [address] Phone Care Team Providers Care Digital Advisor Name Role Phone Giovanna Garcia NP Primary Care Provider [phone] Geronimo Beltran MD Unavailable [phone] Emely Barnes RN Unavailable [phone] Unknown, Unknown Primary Care Provider Hayley Couch MD Primary Care Provider Encounter Details Date Type Department Care Team (Late st Contact Info) Description 03/13/2020 Procedure Pass [facility] [address] [place] [address] Social History Tobacco Use Types Packs/Day Years [...] 1:40 PM EST Office Visit [facility] [place] [address] Efrain Melgar DO [address] [place] [address] [email or web address] documented as of this [...] documented as of this encounter Care Teams Digital Advisor Relationship Specialty Start Date End Date Giovanna Garcia NP [email or web address] PCP - General Family Medicine 11/15/17 08/22/23 Unknown, Unknown, PCP - General 08/23/23 03/07/24 Hayley Ni MD [address] [place] [address] PCP - General Internal Medicine 03/08/24 Geronimo Beltran MD [address] [place] [address] [email or web address] Insurance Assigned Provider 09/19/20 06/17/23 Emely Barnes, ABE [address] [place] [address] [email or web address] iCMP Auto Bumper Straightener 07/27/21 08/10/21 documented as of this encounter Additional Source Comments The information contained in this document represents components of the legal health record. It is not the complete legal health record.[facility]
--- OUTSIDE RECORDS SUMMARY | 2025-03-17 15:06 | XMS_ITS | Encounter Summary ---
Author Organization [facility] Address [address] [facility] [address] [place] [address] Phone Care Team Providers Care Parts Person Name Role Phone Giovanna Garcia NP Primary Care Provider [phone] Geronimo Beltran MD Unavailable [phone] Emely Barnes RN Unavailable [phone] Unknown, Unknown Primary Care Provider Hayley Couch MD Primary Care Provider Encounter Details Date Type Department Care Team (Late Contact Info) Description 03/20/2019 Ancillary Orders [facility],Outside [facility] [address] [place], [place] [id number] System, Provider Not In, [place] [address] Social History Tobacco Use Types Packs/Day Years [...] 1:40 PM EST Office Visit [facility] [address] [place] [address] [place] [address] Efrain Melgar DO [address] [place] [address] [email or web address] documented as [...] documented as of this encounter Care Teams Parts Person Relationship Specialty Start Date End Date Giovanna Garcia NP [email or web address] PCP - General Family Medicine 11/15/17 08/22/23 Unknown, Unknown, MD PCP - General 08/23/23 03/07/24 Hayley Ni MD [address] [place] [address] [place] [address] PCP - General Internal Medicine 03/08/24 Geronimo Beltran MD [address] [place] [address] [email or web address] Insurance Assigned Provider 09/19/20 06/17/23 Emely Barnes, RN [address] [place] [address] [email or web address] iCMP Clinical Resource Coordinator 07/27/21 08/10/21 documented as of this encounter Additional Source Comments The information contained in this document represents components of the legal health record. It is not the complete legal health record.[facility]
--- OUTSIDE RECORDS SUMMARY | 2025-03-17 15:06 | XMS_ITS | Encounter Summary ---
Author Organization [facility] Address [address] [facility] [address] [place] [address] Phone Care Team Providers Care Spectacle Truer Name Role Phone Giovanna Garcia NP Primary Care Provider [phone] Geronimo Beltran MD Unavailable [phone] Emely Barnes RN Unavailable [phone] Unknown, Unknown Primary Care Provider Hayley Couch MD Primary Care Provider Encounter Details Date Type Department Care Team (Late st Contact Info) Description 03/10/2020 Procedure [facility], Ct Scan - [address] [address] Social History Tobacco Use Types Packs/Day Years [...] 1:40 PM EST Office Visit [facility] [address] Efrain Melgar DO [address] [place] [address] [email or web address] documented [...] documented as of this encounter Care Teams Spectacle Truer Relationship Specialty Start Date End Date Giovanna Garcia NP [email or web address] PCP - General Family Medicine 11/15/17 08/22/23 Unknown, Unknown, MD PCP - General 08/23/23 03/07/24 Hayley Ni MD [facility] [place] [address] PCP - General Internal Medicine 03/08/24 Geronimo Beltran MD [address] [place] [address] [email or web address] Insurance Assigned Provider 09/19/20 06/17/23 Emely Barnes, ABE [address] [place] [address] [email or web address] iCMP Power Sewing Machine Operator 07/27/21 08/10/21 documented as of this encounter Additional Source Comments The information contained in this document represents components of the legal health record. It is not the complete legal health record.[facility]
--- OUTSIDE RECORDS SUMMARY | 2025-03-17 15:06 | XMS_ITS | Encounter Summary ---
Author Organization [facility] Address [address] [facility] [address] [place] [address] Phone Care Team Providers Care Tail Edger Name Role Phone Giovanna Garcia NP Primary Care Provider [phone] Geronimo Beltran MD Unavailable [phone] Emely Barnes RN Unavailable [phone] Unknown, Unknown Primary Care Provider Hayley Couch MD Primary Care Provider Encounter Details Date Type Department Care Team (Late Contact Info) Description 03/20/2019 Ancillary Orders [facility],Outside [facility] [address] [place], [place] [phone] System, Provider [place] In, [place] [address] Social History Tobacco Use Types Packs/Day Years [...] PM EST Office Visit [facility] [address] [place] [address] [place] [address] Efrain Melgar DO [address] [place] [address] [email or web address] documented as of this encounter Results * [...] documented as of this encounter Care Teams Tail Edger Relationship Specialty Start Date End Date Giovanna Garcia NP [email or web address] PCP - General Family Medicine 11/15/17 08/22/23 Unknown, Unknown, MD PCP - General 08/23/23 03/07/24 Hayley Ni MD [address] [place] [address] [place] [address] PCP - General Internal Medicine 03/08/24 Geronimo Beltran MD [address] [place] [address] [email or web address] Insurance Assigned Provider 09/19/20 06/17/23 Emely Barnes, RN [address] [place] [address] [email or web address] iCMP Cold Saw Operator 07/27/21 08/10/21 documented as of this encounter Additional Source Comments The information contained in this document represents components of the legal health record. It is not the complete legal health record.[facility]
== END 2025-03-17 13:00 | disposition home or self-care (01) ==
LOC: HO.HCS 12:36
PROVIDERS: PCP Internal Medicine; Visit Provider Internal Medicine Cardiovascular Disease
DX: I48.0 Paroxysmal atrial fibrillation (principal); I10 Essential (primary) hypertension
CPT/HCPCS: 93010; 99214

== ENCOUNTER → 2025-03-17 12:35 | Outpatient (BNVA) | payer MEDICARE, SELFPAY | PROVIDERS: PCP Internal Medicine; Visit Provider Internal Medicine Cardiovascular Disease | DX: I48.0 Paroxysmal atrial fibrillation (principal); I10 Essential (primary) hypertension | CPT/HCPCS: 93005; 99212 ==

== ENCOUNTER 2025-03-18 08:43 | Outpatient (REF) | payer MEDICARE, SELFPAY ==
--- NOTE | ~2025-03-18 | XR_ITS ---
EXAMINATION: XR CHEST CLINICAL INFORMATION: J44.9 - Chronic obstructive pulmonary disease, unspecified COMPARISON: 10/10/2024, 07/27/2024. TECHNIQUE: 2 views of the chest were obtained. FINDINGS: The cardiac, hilar, and mediastinal contours are normal. Aortic mural calcification. Lungs are diffusely hyperaerated and hyperlucent, in keeping with COPD. There is stable mild volume loss in the right lung, appears to be related to prior right upper lobe resection. There is stable mild scarring in the lingula. Stable linear scarring in the medial right upper lobe. There is no pneumothorax or pleural effusion. There is no focal osseous or soft tissue abnormality. There are degenerative changes of the spine. There are cholecystectomy clips present. XR/XR chest 2V IMPRESSION: 1. COPD. Prior right upper lobe resection with mild volume loss in the right lung. 2. Stable foci of scarring in the lingula and right upper lobe medially. 3. No active superimposed disease. No significant interval change from prior exams. Electronically signed by: Red White MD 03/18/2025 09:20 AM EDT
--- OUTSIDE RECORDS SUMMARY | 2025-03-18 09:26 | XMS_ITS | Clinical Summary ---
Author Organization [facility] Address [address] [place] [address] Phone Care Team Providers Care Battery Container Finishing Hand Name Role Phone Hayley Ni MD Primary [...] mg total) by mouth daily. 3 Active [place] Saline 0.65 % nasal spray 2 DRP [...] Date Site/Laterality Comments OTHER SURGICAL HISTORY PROCEDURE: [place] THORACOSCOPY W/LOBECTOMY SINGLE LOBE; COMMENT: right upper [...] age to complete this topic Insurance MEDICARE [facility] Care Teams Battery Container Finishing Hand Relationship Specialty Start Date End Date Hayley Ni MD [address] [place] [address] PCP - General 11/10/23
--- OUTSIDE RECORDS SUMMARY | 2025-03-18 09:26 | XMS_ITS | Patient Health Record ---
Author Organization [facility] Address [address] [place] [address] Care Team Providers Care Supervisor International Reservations Name Role Phone Abigail Em MD Primary Care Provider Noah Hummel [phone] Allergies Allergen (clinical drug ingredient) Drug/Non Drug [...] Problem Status W/U Status Risk Notes Problem [id number] Encounter for screening for malignant neoplasm of colon (Z12.11) Active confirmed Problem 801754479 History of adenomatous polyp of colon (Z86.010) Active confirmed Problem Nausea and vomiting (37206634) Nausea with vomiting, unspecified (R11.2) Active confirmed Problem 551296719 Gastroesophageal reflux disease without esophagitis (K21.9) Active confirmed Problem 02858160 Dysphagia, unspecified type (R13.10) Active confirmed Problem Acute diarrhea (225743847) Acute diarrhea (R19.7) Active confirmed Plan Of [...] Date MEDICARE OF [place] [address] [facility] [address] [id number] VJ MCGUIRE Self - patient is the insured [employer] ATT[employer] CLAIMS [address] [place] [address] [id number] VJ MCGUIRE Self - patient is [...] some sigmoid diverticulosis and internal hemorrhoids Denies VT,CVA,DM,renal disease Hyperlipidemia Anxiety since 08/2011 IBS-EGD with normal duodenal biopsies in 2012 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 during the day; going for a sleep study as of the 11/2019 OV to check for sleep apnea Pneumonia in 09/2015--at [facility] Hypertension Grand mal seizure 02/2020 at [facility] Atrial fibrillation with a l oop [...]
== END 2025-03-18 08:44 | disposition home or self-care (01) ==
LOC: HO.HMGCX 08:43
PROVIDERS: PCP Internal Medicine; Visit Provider Hospitalist
DX: J44.9 Chronic obstructive pulmonary disease, unspecified (principal)
CPT/HCPCS: 71046

== ENCOUNTER → 2025-03-18 08:53 | Outpatient (BNV) | payer MEDICARE, SELFPAY | PROVIDERS: PCP Internal Medicine; Visit Provider Radiology Diagnostic Radiology | DX: J44.9 Chronic obstructive pulmonary disease, unspecified (principal) | CPT/HCPCS: 71046 ==

== ENCOUNTER 2025-04-16 13:49 | Outpatient (AMB) | payer MEDICARE, SELFPAY ==
--- OUTSIDE RECORDS SUMMARY | 2010-02-28 23:00 | XMS_ITS | Encounter Summary ---
Author Organization [facility] Address [address] [place] [address] Phone Care Team Providers Care Drosser Name Role Phone Unavailable Primary Care Provider Unavailabl e Encounter Details Date Type Department Care Team (Late st Contact Info) Description 03/01/2010 Hospital Encounter [facility],Outside Imaging 30 [place], [place] [phone] System, Provider Not In, [facility] [address] [address] Social History Tobacco Use Types Packs/Day Years [...] 1:41 PM EDT Vivi Thomas RN * [place] Suicide Severity Rating Scale (Screener/Recent Self-Report) Question [...] PM EST Office Visit [facility] [address] [place] [address] Efrain Melgar DO 22 [place] [address] [email or web address] documented as of this encounter Procedures Procedure [...] It is not the complete legal health record.[facility]
--- OUTSIDE RECORDS SUMMARY | 2012-01-29 23:00 | XMS_ITS | Encounter Summary ---
Author Organization [facility] Address [address] [place] [address] Phone Care Team Providers Care Rough Rice Tender Name Role Phone Unavailable Primary Care Provider Unavailabl e Encounter Details Date Type Department Care Team (Late st Contact Info) Description 01/30/2012 Hospital Encounter [facility],Outside Imaging 30 [place], [place] [phone] System, Provider Not In, [facility] [address] [address] Social History Tobacco Use Types Packs/Day Years [...] 1:41 PM EDT Vivi Thomas RN * [place] Suicide Severity Rating Scale (Screener/Recent Self-Report) Question [...] PM EST Office Visit [facility] [address] [place] [address] Efrain Melgar DO 22 [place] [address] [email or web address] documented as of this encounter Procedures Procedure Name Priority Date/Time Associated Diagnosis Comments BI MAMMOGRAM OUTSIDE (NO INTERPRETATION) Routine 01/30/2012 12:00 AM EDT documented in this encounter Results * Mammogram Outside (No Interpretation) (01/30/2012 12:00 AM EDT) Narrative SYSTEMGENERATED, DOCUMENTATION - 03/20/2019 12:56 PM EDT This study is for PACS [...] It is not the complete legal health record.[facility]
--- NOTE | 2025-04-16 14:19 | A.OFFVIS_ITS ---
Intake Visit Reasons: 8w/UTI/PVR Intake Note: Patient presents today for 8w/UTI/PVR Urology Medication:None Blood Thinner:Xarelto Antibiotic Allergies:Ciprofloxacin PVR:0ml Allergies bupropion (From Wellbutrin) Allergy (Verified 04/16/25 14:20) Chest Pain ciprofloxacin Allergy (Verified 04/16/25 14:20) Chest Pain IV/IM prednisone Allergy (Uncoded 11/25/24 09:46) Seizure Medication List - Last Reconciled 04/16/25 by Nilson Solomon MD albuterol sulfate 90 mcg/actuation 2 puffs inhalation Q4H PRN calcium carbonate-vitamin D3 600 mg-20 mcg (800 unit) (Caltrate with Vitamin D3) 1 tab PO DAILY cholecalciferol (vitamin D3) 1,250 mcg PO QWEEK diltiazem HCl ER 240 mg PO DAILY doxycycline hyclate 100 mg PO BID 10 days estradiol 0.01%(0.1mg/gram) (Estrace) use pea-sized amount to fingertip and apply vaginally at bedtime daily; flecainide 100 mg PO Q12H pkpsaovbgsj-aciejenrl-obaptfbo 200-62.5-25 mcg (Trelegy Ellipta) 1 inh inhalation DAILY 30 days lamotrigine 100 mg PO BID levalbuterol HCl 1.25 mg (3 mL) inhalation BID 30 days methenamine hippurate 1 g PO BID nebulizers As directed omeprazole 40 mg PO BID Oxygen Home Use As directed prednisone PO daily; Take 4 tabs x 3 days, then 3 tabs x 3 days, then 2 tabs daily x 3 days, then 1 tab x 3 days to complete. 12 days rivaroxaban (Xarelto) 20 mg PO QPM sodium chloride 3% 4 mL inhalation BID 30 days HPI Comments Details: 04/16/2025--Ange is followed for recurrent UTIs she was last seen in the office on in 02/20/2025 cystoscopy findings at that time- atrophic urethra bladder wall thickening no suspicious bladder lesions. She was placed on vaginal estrogen therapy and on a 30 day course of suppressive Macrobid therapy for 30 days then instructed to start Hiprex b.i.d. History of Present Illness The patient is a 70-year-old female presenting with h/o recurrent urinary tract infections. She has been followed for this condition and was last seen in the office on February 20, 2025, for a cystoscopy. The cystoscopy findings included an atrophic urethra and bladder wall thickening, but no suspicious bladder lesions were noted. The patient was initially placed on a 30-day course of suppressive Macrobid therapy, which she discontinued due to itching. She was then started on Hiprex BID and vaginal estrogen therapy, which she continues to use at night. The patient reports improvement in her symptoms and has not experienced a urinary tract infection for the longest period in recent times, so she stopped the Hiprex. She experiences urinary urgency, needing to void again sometimes within 20 minutes during the day and has episodes of incontinence when rolling over in bed. The patient has been advised to resume the methanamine at once a day for 60 days, with a follow-up telehealth planned in three months to assess her symptoms. Results - Cystoscopy: 02/20/25--Atrophic urethra, bladder wall thickening, no suspicious bladder lesions Plan 1. Recurrent Urinary Tract Infections 2. Urgency/OAB symptoms 3. Bladder wall thickening 4. Vaginal Atrophy - Continue vaginal estrogen therapy at night. - Reduce methanamine dosage to once daily for 60 days. - Follow-upthree months to assess symptoms. 02/20/25--recurrent UTIs. Here for office cystoscopy. Persistent bacteriuria-E coli. Office cystoscopy atrophic urethra, passive dilation, bladder wall thickening no suspicious bladder lesions visualized. Urine cytology 03/18/24--Negative for malignant cells. I will place her on suppressive course of Macrobid for 30 days and then start Hiprex b.i.d.. I have discussed use of vaginal estrogen therapy. Benefits of vaginal estrogen use in the treatment of recurrent UTI's in gali and post menaupausal women. Vaginal estrogen has been found to decrease vaginal PH, increase lactobacillus in the epithium of the vagina. Follow-up in 8 weeks 12/05/24--- The patient is a 69-year-old female presenting with recurrent urinary tract infections. - The patient has been experiencing frequent urinary tract infections since January of the previous year, confirmed by positive urine cultures. - The most recent culture on November 25, 2024, showed E. coli, with previous cultures showing Enterococcus and E. paralae with varying antibiotic resistance. - The patient reports symptoms such as pain and urinary urgency, with episodes occurring as frequently as three times a month. - She has been on various antibiotics, including Cefuroxime and Nitrofurantoin, with varying effectiveness. - A CT scan of the abdomen and pelvis in August 2024 showed no renal stones or masses but noted a large amount of stool throughout the colon. - The patient has been experiencing tailbone and lower back pain for the last few months, which she associates with her urinary symptoms. - Discussed constipation with dietary changes, including the use of probiotics and apple cider vinegar, to improve bowel regularity and reduce UTI risk. Results - Labs: Urine cultures positive for E. coli on 11/25/24, Enterococcus on 11/08/24, and E. paralae on 10/26/24. - Imaging: CT scan of the abdomen and pelvis on 08/28/24 showed no renal stones or masses but a large amount of stool throughout the colon. [facility] Medical History Recurrent urinary tract infection History of lung cancer Dyslipidemia History of adenomatous polyp of colon Hx of TIA (transient ischemic attack) and stroke History of seizure disorder Achalasia of esophagus Osteoporosis HTN (hypertension) KRISTEN on CPAP Asthma-COPD overlap syndrome GERD (gastroesophageal reflux disease) Surgical History S/P cardiac catheterization S/P partial lobectomy of lung H/O wrist surgery History of cholecystectomy Family History Mother Small cell lung cancer Father Stomach cancer Brother Diabetes Throat cancer Social History Household Members: Spouse and Children Housing: House Do you presently have visiting nurse or other home services: No Alcohol intake: current Alcohol intake frequency: does not drink Patient Tobacco Use Status: Former Tobacco user Years Smoked: 30 +/- e-Cigarette/Vaping Use: Never Used Substance Use Type: Marijuana Advance Directives Date on File: 04/21/22 service: No Current occupational status: retired Cognitive needs: No Hearing needs: No Vision needs: Yes Review of Systems Const All systems reviewed & are unremarkable except as noted in HPI and below Reports no additional complaints Eyes Reports no additional complaints ENT Reports no additional complaints Card Reports no additional complaints Resp Reports no additional complaints GI Reports no additional complaints Reports as per HPI Musc Reports no additional complaints Skin/Breast Reports system reviewed and no additional complaints, except as documented Neuro Reports no additional complaints Psych Reports no additional complaints Endo Reports no additional complaints Ga/Lymph Reports no additional complaints Aller/Immun Reports no additional complaints Results Reviewed Results Reviewed: Collected: 02/14/25-UNK Status: COMP Req#: [id number] Received: 02/14/25-105 Source: [facility] Desc: Clean Cat Subm Dr: Hayley Ni MD Ordered: Urine Culture Procedure Result Verified Urine Culture Final 02/16/25-740 Organism 1 Escherichia coli Quant > 100,000 cfu/mL E coli M.I.C. RX --------- --- Ampicillin <=2 S Cefazolin (Urine) <=1 S Cefepime <=0.12 S Ceftriaxone <=0.25 S Ciprofloxacin <=0.06 S Gentamicin <=1 S Nitrofurantoin <=16 S Trimethoprim/Sulfamethoxazole <=20 S Date of Service: 08/28/24 EXAMINATION: CT ABDOMEN PELVIS WITH IV CONTRAST HISTORY: R10.32 - Left lower quadrant pain COMPARISON: There are no prior studies for comparison. TECHNIQUE: CT scan of the abdomen and pelvis was performed following administration of 85 mL Omnipaque 350 using standard departmental protocol. Coronal and sagittal reformatted images were generated and reviewed. The patient received oral contrast material. This CT exam was performed with one or more of the following dose reduction techniques: automated exposure control, adjustment of the mA and/or kV according to patient size, use of iterative reconstruction technique. DLP: 422 mGy-cm FINDINGS: LOWER CHEST: The visualized lung bases are clear. There is no pleural effusion. CARDIOVASCULATURE: The heart is normal in size. There is no pericardial effusion. LIVER: The liver is normal in size and contour. No liver mass is identified. The hepatic and portal veins are patent. GALLBLADDER / BILE DUCTS: The gallbladder is surgically absent. There is no intra or extrahepatic biliary ductal dilatation. SPLEEN: The spleen is normal in size. No focal splenic lesion is identified. PANCREAS: The pancreas is unremarkable in appearance. ADRENAL GLANDS: Within normal limits. KIDNEYS/RETROPERITONEUM: The kidneys are mildly lobulated which may represent scarring. No renal calculi are identified. There is no hydronephrosis. No renal masses are identified. LYMPH NODES: No abdominal or pelvic lymphadenopathy. VASCULATURE: The abdominal aorta demonstrates atherosclerotic calcification, but is normal in caliber. MESENTERY/PERITONEUM: No free fluid. No masses. There is no free intraperitoneal gas. STOMACH: There is a small hiatal hernia. The remainder of the stomach is collapsed. SMALL BOWEL: The small bowel is normal in caliber. COLON: There is a large amount of stool throughout the colon. There is diverticulosis of the sigmoid colon, without evidence of diverticulitis. APPENDIX: Normal. URINARY BLADDER/PELVIC ORGANS: The urinary bladder is unremarkable. The uterus and ovaries are unremarkable. BONES / SOFT TISSUES: There is degenerative disc disease of the spine. IMPRESSION: 1. Large amount of stool throughout the colon. Sigmoid diverticulosis without evidence of diverticulitis. 2. Small hiatal hernia. Urine Cytology--Collected: 03/18/24 Location: [facility] Received: 03/19/24 Diagnosis Urine: Negative for high-grade urothelial carcinoma. See comment. COMMENT: Cellular specimen consisting of single urothelial cells with degenerative changes, squamous cells, rare red blood cells and occasional mixed inflammatory cells. Clinical History Urinary tract infection, site not specified Microscopic hematuria Frequent urinary tract infections Material Received Urine Gross Description Received is 19 cc of clear yellow fluid from which a ThinPrep slide is prepared. Assessment & Plan Assessment & Plan (1) Urinary urgency: Code(s): R39.15 - Urgency of urination Category: Medical (2) Recurrent UTI: Code(s): N39.0 - Urinary tract infection, site not specified Category: Medical (3) Chronic cystitis: Code(s): N30.20 - Other chronic cystitis without hematuria Category: Medical (4) Bladder wall thickening: Code(s): N32.89 - Other specified disorders of bladder Category: Medical (5) Atrophy of urethra: Code(s): N36.8 - Other specified disorders of urethra Category: Medical Plan Plan 1. Recurrent Urinary Tract Infections 2. Urgency/OAB symptoms 3. Bladder wall thickening 4. Vaginal Atrophy - Continue vaginal estrogen therapy at night. - Reduce methanamine dosage to once daily for 60 days. - Follow-upthree months to assess symptoms. Patient Instructions: The patient had an opportunity to ask questions regarding treatment plan. The patient expressed understanding and agreement with the above treatment plan. The patient is aware they should contact our office by phone for worsening of their current condition or the appearance of new symptoms. Compliance is encouraged with any medications and followup testing that is ordered. It is a privilege to be allowed the opportunity to participate in the urologic care of your patient. If you have any questions or concerns regarding treatment for the above conditions please do not hesitate to contact me. The office telephone contact is [phone]. This note is constructed in part using voice recognition software. While every effort has been made to ensure accuracy sales apprentice errors may have been included. Yours sincerely, Nilson Solomon MD Scribe Plan - Not visible on output: Patient was informed and verbally consented to the use of an ambient scribe for clinic note documentation during this visit. Coding Level of Care Code Est Pt Level 4 (07576) Diagnoses Urinary urgency R39.15 Recurrent UTI N39.0 Chronic cystitis N30.20 Bladder wall thickening N32.89 Atrophy of urethra N36.8
--- OUTSIDE RECORDS SUMMARY | 2025-04-16 16:50 | XMS_ITS | Encounter Summary ---
Author Organization [facility] Address [address] [place] [address] Phone Care Team Providers Care Shoe Folder Name Role Phone Giovanna Garcia NP Primary Care Provider [phone] Geronimo Beltran MD Unavailable [phone] Unknown, Unknown Primary Care Provider Hayley Couch MD Primary Care Provider Encounter Details Date Type Department Care Team (Late st Contact Info) Description 02/09/2022 Transcribe Orders [facility] [place] [address] [place] [address] Jacky Little MD [address] [address] [email or web address] Social History Tobacco Use Types [...] high school, GED, job training, learning the Egyptian language, technical skills, or developing parenting skills)? [...] PM EST Office Visit [facility] [address] [place] [address] Efrain Melgar, DO [address] [place] [address] documented as of this encounter Visit Diagnoses Not on filedocumented in this encounter Additional Health Concerns Infection Onset Date Last Indicated Resolved Time CoV-Risk 03/29/2022 03/29/2022 04/09/2022 1:22 AM EDT Assessment Noted Time PHQ-2 Depression Total Score: 2 08/11/19 9:20 AM EST documented as of this encounter Care Teams Shoe Folder Relationship Specialty Start Date End Date Giovanna Garcia NP [email or web address] PCP - General Family Medicine 11/15/17 08/22/23 Unknown, Unknown, MD PCP - General 08/23/23 03/07/24 Hayley Ni MD [facility] [place] [address] PCP - General Internal Medicine 03/08/24 Geronimo Beltran MD [address] [place] [address] [email or web address] Insurance Assigned Provider 09/19/20 06/17/23 documented as of this encounter Additional Source Comments The information contained in this document represents components of the legal health record. It is not the complete legal health record.[facility]
--- OUTSIDE RECORDS SUMMARY | 2025-04-16 16:50 | XMS_ITS | Encounter Summary ---
Author Organization [facility] Address [address] [facility] [address] [place] [address] Phone Care Team Providers Care Gas Derrick Operator Name Role Phone Giovanna Garcia NP Primary Care Provider [phone] Geronimo Beltran MD Unavailable [phone] Emely Barnes RN Unavailable [phone] Unknown, Unknown Primary Care Provider Hayley Couch MD Primary Care Provider Encounter Details Date Type Department Care Team (Late Contact Info) Description 03/20/2020 Procedure Pass [facility] 30 [place] [address] Social History Tobacco Use Types Packs/Day Years [...] [facility] [address] [place] [address] Efrain Melgar DO 22 [place] [address] [email or web address] documented as of [...] as of this encounter Care Teams Gas Derrick Operator Relationship Specialty Start Date End Date Giovanna Garcia NP [email or web address] PCP - General Family Medicine 11/15/17 08/22/23 Unknown, Unknown, MD PCP - General 08/23/23 03/07/24 Hayley Ni MD [address] [place] [address] PCP - General Internal Medicine 03/08/24 Geronimo Beltran MD [address] [place] [address] [email or web address] Insurance Assigned Provider 09/19/20 06/17/23 Emely Barnes, RN [address] [place] [address] [email or web address] [facility] Technology Sales Specialist 07/27/21 08/10/21 documented as of this encounter Additional Source Comments The information contained in this document represents components of the legal health record. It is not the complete legal health record.[facility]
--- OUTSIDE RECORDS SUMMARY | 2025-04-16 16:51 | XMS_ITS | Encounter Summary ---
Author Organization [facility] Address [address] [place] [address] Phone Care Team Providers Care Lozenge Dough Mixer Name Role Phone Giovanna Garcia NP Primary Care Provider [phone] Geronimo Beltran MD Unavailable [phone] Unknown, Unknown Primary Care Provider Hayley Couch MD Primary Care Provider Encounter Details Date Type Department Care Team (Late st Contact Info) Description 11/02/2021 Procedure Pass Non-Invasive Cardiology [address] [place] [id number] Social History Tobacco Use Types Packs/Day Years [...] high school, GED, job training, learning the Panamanian language, technical skills, or developing parenting skills)? [...] 1:40 PM EST Office Visit [facility] [address] [place] [address] Efrain Melgar DO 22 [place] [address] documented as of this encounter Visit Diagnoses Not on filedocumented in this encounter Additional Health Concerns Infection Onset Date Last Indicated Resolved Time CoV-Risk 03/29/2022 03/29/2022 04/09/2022 1:22 AM EDT Assessment Noted Time PHQ-2 Depression Total Score: 2 08/11/19 22 9:20 AM EST documented as of this encounter Care Teams Lozenge Dough Mixer Relationship Specialty Start Date End Date Giovanna Garcia, MANAGER OF APPLICATIONS DEVELOPMENT PCP - General Family Medicine 11/15/17 08/22/23 Unknown, Unknown, MD PCP - General 08/23/23 03/07/24 Hayley Ni MD [facility] [place] [address] PCP - General Internal Medicine 03/08/24 Geronimo Beltran MD [address] [place] [address] [email or web address] Insurance Assigned Provider 09/19/20 06/17/23 documented as of this encounter Additional Source Comments The information contained in this document represents components of the legal health record. It is not the complete legal health record.[facility]
--- OUTSIDE RECORDS SUMMARY | 2025-04-16 16:51 | XMS_ITS | Encounter Summary ---
Author Organization [facility] Address [address] [employer] [facility] [address] [place] [address] Phone Care Team Providers Care Windows Vmware Administrator Name Role Phone Giovanna Garcia NP Primary Care Provider [phone] Geronimo Beltran MD Unavailable [phone] Emely Barnes RN Unavailable [phone] Unknown, Unknown Primary Care Provider Hayley Couch MD Primary Care Provider Encounter Details Date Type Department Care Team (Late st Contact Info) Description 03/27/2020 Procedure Pass [facility], [address] [address] Social History Tobacco Use Types Packs/Day Years [...] 1:40 PM EST Office Visit [facility] [address] Efrain Melgar DO 22 [place] [address] [email or web address] documented as of this encounter Visit Diagnoses [...] documented as of this encounter Care Teams Windows Vmware Administrator Relationship Specialty Start Date End Date Giovanna Garcia NP [email or web address] PCP - General Family Medicine 11/15/17 08/22/23 Unknown, Unknown, PCP - General 08/23/23 03/07/24 Hayley Ni MD [address] [facility] [place] [address] PCP - General Internal Medicine 03/08/24 Geronimo Beltran MD [address] [place] [address] [email or web address] Insurance Assigned Provider 09/19/20 06/17/23 Emely Barnes, RN [address] [place] [address] [email or web address] [facility] Payroll And Benefits Specialist 07/27/21 08/10/21 documented as of this encounter Additional Source Comments The information contained in this document represents components of the legal health record. It is not the complete legal health record.[facility]
--- OUTSIDE RECORDS SUMMARY | 2025-04-16 16:51 | XMS_ITS | Encounter Summary ---
Author Organization [facility] Address [address] [place] [address] Phone Care Team Providers Care Supervisor Process Testing Name Role Phone Giovanna Garcia NP Primary Care Provider [phone] Geronimo Beltran MD Unavailable [phone] Unknown, Unknown Primary Care Provider Hayely Couch MD Primary Care Provider Encounter Details Date Type Department Care Team (Late st Contact Info) Description 02/25/2022 Procedure Pass [facility] Interventional [facility]iology 30 [place] [address] Social History Tobacco Use Types Packs/Day Years [...] high school, GED, job training, learning the Italian language, technical skills, or developing parenting skills)? [...] PM EST Office Visit [facility] [address] [place] [address] Efrain Melgar DO [address] [place] [address] documented as of this encounter Visit Diagnoses Not on filedocumented in this encounter Additional Health Concerns Infection Onset Date Last Indicated Resolved Time CoV-Risk 03/29/2022 03/29/2022 04/09/2022 1:22 AM EDT Assessment Noted Time PHQ-2 Depression Total Score: 2 08/11/19 9:20 AM EST documented as of this encounter Care Teams Supervisor Process Testing Relationship Specialty Start Date End Date Giovanna Garcia, INFORMATION ASSURANCE SPECIALIST PCP - General Family Medicine 11/15/17 08/22/23 Unknown, Unknown, MD PCP - General 08/23/23 03/07/24 Hayley Ni MD [address] [place] [address] [place] [address] PCP - General Internal Medicine 03/08/24 Geronimo Beltran MD [address] [place] [address] [email or web address] Insurance Assigned Provider 09/19/20 06/17/23 documented as of this encounter Additional Source Comments The information contained in this document represents components of the legal health record. It is not the complete legal health record.[facility]
--- OUTSIDE RECORDS SUMMARY | 2025-04-16 16:51 | XMS_ITS | Encounter Summary ---
Author Organization [facility] Address [address] [facility] [address] [place] [address] Phone Care Team Providers Care Dog Show Judge Name Role Phone Giovanna Garcia NP Primary Care Provider [phone] Geronimo Beltran MD Unavailable [phone] Emely Barnes RN Unavailable [phone] Unknown, Unknown Primary Care Provider Hayley Couch MD Primary Care Provider Encounter Details Date Type Department Care Team (Late st Contact Info) Description 02/01/2021 Procedure Pass [facility], [address] [address] Social History Tobacco Use Types Packs/Day Years [...] 1:40 PM EST Office Visit [facility] [address] Efrain Melgar DO 22 [place] [address] [email or web address] documented as of this encounter Visit Diagnoses [...] documented as of this encounter Care Teams Dog Show Judge Relationship Specialty Start Date End Date Giovanna Garcia NP [email or web address] PCP - General Family Medicine 11/15/17 08/22/23 Unknown, Unknown, PCP - General 08/23/23 03/07/24 Hayley Ni MD [facility] [place] [address] PCP - General Internal Medicine 03/08/24 Geronimo Beltran MD [address] [place] [address] [email or web address] Insurance Assigned Provider 09/19/20 06/17/23 Emely Barnes, RN [address] [place] [address] [email or web address] PHCM Ginner Helper 07/27/21 08/10/21 documented as of this encounter Additional Source Comments The information contained in this document represents components of the legal health record. It is not the complete legal health record.[facility]
--- OUTSIDE RECORDS SUMMARY | 2025-04-16 16:51 | XMS_ITS | Encounter Summary ---
Author Organization [facility] Address [address] [employer] [facility] [address] [place] [address] Phone Care Team Providers Care Wholesaler Name Role Phone Giovanna Garcia NOZZLE WORKER Primary Care Provider [phone] Geronimo Beltran MD Unavailable [phone] Emely Barnes RN Unavailable [phone] Unknown, Unknown Primary Care Provider Hayley Couch MD Primary Care Provider Encounter Details Date Type Department Care Team (Late st Contact Info) Description 04/21/2020 Transcribe Orders [facility] PFT Lab 30 [place] [address] Ian Anderson MD, [place] [address] [id number] [email or web address] Social History Tobacco Use Types Packs/Day Years [...] PM EST Office Visit [facility] [address] [place] [address] Efrain Melgar DO 22 [place] [address] [email or web address] documented as of this encounter Visit Diagnoses [...] documented as of this encounter Care Teams Wholesaler Relationship Specialty Start Date End Date Giovanna Garcia NP PCP - General Family Medicine 11/15/17 08/22/23 Unknown, Daxa, MD PCP - General 08/23/23 03/07/24 Hayley Ni MD [address] [facility] [place] [address] PCP - General Internal Medicine 03/08/24 Geronimo Beltran MD [address] [place] [address] [email or web address] Insurance Assigned Provider 09/19/20 06/17/23 Emely Barnes, RN [address] [place] [address] [email or web address] PHCM Starch Cooker 07/27/21 08/10/21 documented as of this encounter Additional Source Comments The information contained in this document represents components of the legal health record. It is not the complete legal health record.[facility]
--- OUTSIDE RECORDS SUMMARY | 2025-04-16 16:51 | XMS_ITS | Encounter Summary ---
Author Organization [facility] Address [address] [employer] [facility] [address] [place] [address] Phone Care Team Providers Care Wigs Salesperson Name Role Phone Giovanna Garcia NP Primary Care Provider [phone] Geronimo Beltran MD Unavailable [phone] Emely Barnes RN Unavailable [phone] Unknown, Unknown Primary Care Provider Hayley Couch MD Primary Care Provider Encounter Details Date Type Department Care Team (Late st Contact Info) Description 09/27/2018 Procedure Pass [facility], [address] [address] Social History Tobacco Use Types Packs/Day Years [...] PM EST Office Visit [facility] [address] [place] [address] Efrain Melgar DO [address] [place] [address] [email or web address] documented as of this encounter Visit [...] documented as of this encounter Care Teams Wigs Salesperson Relationship Specialty Start Date End Date Giovanna Garcia LYE BATH OPERATOR [email or web address] PCP - General Family Medicine 11/15/17 08/22/23 Unknown, Daxa, MD PCP - General 08/23/23 03/07/24 Hayley Ni MD [facility] [place] [address] PCP - General Internal Medicine 03/08/24 Geronimo Beltran MD [address] [place] [address] [email or web address] Insurance Assigned Provider 09/19/20 06/17/23 Emely Barnes, RN [address] [place] [address] [email or web address] PHCM Senior Mobile Developer 07/27/21 08/10/21 documented as of this encounter Additional Source Comments The information contained in this document represents components of the legal health record. It is not the complete legal health record.[facility]
--- OUTSIDE RECORDS SUMMARY | 2025-04-16 16:51 | XMS_ITS | Encounter Summary ---
Author Organization [facility] Address [address] [employer] [facility] [address] [place] [address] Phone Care Team Providers Care Service Unit Operator Oil Well Name Role Phone Giovanna Garcia NP Primary Care Provider [phone] Geronimo Beltran MD Unavailable [phone] Emely Barnes RN Unavailable [phone] Unknown, Unknown Primary Care Provider Hayley Couch MD Primary Care Provider Encounter Details Date Type Department Care Team (Late st Contact Info) Description 03/17/2020 Procedure Pass [facility], [address] [address] Social History Tobacco Use Types Packs/Day Years [...] 1:40 PM EST Office Visit [facility] [address] Efrain Melgar DO 22 [place] [address] [email or web address] documented [...] documented as of this encounter Care Teams Service Unit Operator Oil Well Relationship Specialty Start Date End Date Giovanna Garcia NP [email or web address] PCP - General Family Medicine 11/15/17 08/22/23 Unknown, Unknown, MD PCP - General 08/23/23 03/07/24 Hayley Ni MD [facility] [place] [address] PCP - General Internal Medicine 03/08/24 Geronimo Beltran MD [address] [place] [address] [email or web address] Insurance Assigned Provider 09/19/20 06/17/23 Emely Barnes, ABE [address] [place] [address] [email or web address] [facility] Skin Diver 07/27/21 08/10/21 documented as of this encounter Additional Source Comments The information contained in this document represents components of the legal health record. It is not the complete legal health record.[facility]
--- OUTSIDE RECORDS SUMMARY | 2025-04-16 16:51 | XMS_ITS | Encounter Summary ---
Author Organization [facility] Address [address] [facility] [address] [place] [address] Phone Care Team Providers Care Natural Resource Economist Name Role Phone Giovanna Garcia NP Primary Care Provider [phone] Geronimo Beltran MD Unavailable [phone] Emely Barnes RN Unavailable [phone] Unknown, Unknown Primary Care Provider Hayley Couch MD Primary Care Provider Encounter Details Date Type Department Care Team (Late st Contact Info) Description 04/07/2020 Procedure Pass Non-Invasive Cardiology [address] [place] [address] Social History Tobacco Use Types Packs/Day Years [...] PM EST Office Visit [facility] [address] [place] [address] Efrain Melgar DO 22 [place] [address] [email or web address] documented [...] documented as of this encounter Care Teams Natural Resource Economist Relationship Specialty Start Date End Date Giovanna Garcia NP [email or web address] PCP - General Family Medicine 11/15/17 08/22/23 Unknown, Unknown, PCP - General 08/23/23 03/07/24 Hayley Ni MD [facility] [place] [address] PCP - General Internal Medicine 03/08/24 Geronimo Beltran MD [address] [place] [address] Insurance Assigned Provider 09/19/20 06/17/23 Emley Barnes, RN 10 [place] [address] [facility] Service Station Equipment Mechanic 07/27/21 08/10/21 documented as of this encounter Additional Source Comments The information contained in this document represents components of the legal health record. It is not the complete legal health record.[facility]
--- OUTSIDE RECORDS SUMMARY | 2025-04-16 16:51 | XMS_ITS | Encounter Summary ---
Author Organization [facility] Address [address] [facility] [address] [place] [address] Phone Care Team Providers Care Hat Conditioner Name Role Phone Giovanna Garcia NP Primary Care Provider [phone] Geronimo Beltran MD Unavailable [phone] Emely Barnes RN Unavailable [phone] Unknown, Unknown Primary Care Provider Hayley Couch MD Primary Care Provider Encounter Details Date Type Department Care Team (Late st Contact Info) Description 04/01/2020 Procedure Pass Non-Invasive Cardiology [address] [place] [address] Social History Tobacco Use Types Packs/Day Years [...] PM EST Office Visit [facility] [address] [place] [address] Efrain Melgar DO 22 [place] [address] [email or web address] [...] documented as of this encounter Care Teams Hat Conditioner Relationship Specialty Start Date End Date Giovanna Garcia NP [email or web address] PCP - General Family Medicine 11/15/17 08/22/23 Unknown, Unknown, PCP - General 08/23/23 03/07/24 Hayley Ni MD [facility] [place] [address] PCP - General Internal Medicine 03/08/24 Geronimo Beltran MD [address] [place] [address] Insurance Assigned Provider 09/19/20 06/17/23 Emely Barnes, RN 10 [place] [address] [facility] Miller Rod Mill 07/27/21 08/10/21 documented as of this encounter Additional Source Comments The information contained in this document represents components of the legal health record. It is not the complete legal health record.[facility]
--- OUTSIDE RECORDS SUMMARY | 2025-04-16 16:51 | XMS_ITS | Encounter Summary ---
Author Organization [facility] Address [address] [place] [address] Phone Care Team Providers Care Manager Maintenance Name Role Phone Giovanna Garcia WELD INSPECTOR Primary Care Provider [phone] Geronimo Beltran MD Unavailable [phone] Emely Barnes RN Unavailable [phone] Unknown, Unknown Primary Care Provider Hayley Couch MD Primary Care Provider Encounter Details Date Type Department Care Team (Latest Contact Info) Description 03/18/2020 Prep for Surgery [facility] [address] [place] [address] Dr [address] Floor, [address] [place] [address] Radu Somers MD 22 [place] [address] [email or web address] Syncope and collapse (Primary Dx) Social History [...] 1:40 PM EST Office Visit [facility] [address] [place] [address] [place] [address] Efrain Melgar DO 22 [place] [address] [email or web address] [...] as of this encounter Care Teams Manager Maintenance Relationship Specialty Start Date End Date Giovanna Garcia NP [email or web address] PCP - General Family Medicine 11/15/17 08/22/23 Unknown, Daxa, PCP - General 08/23/23 03/07/24 Hayley Ni MD [facility] [place] [address] PCP - General Internal Medicine 03/08/24 Geronimo Beltran MD [address] [place] [address] [email or web address] Insurance Assigned Provider 09/19/20 06/17/23 Emely Barnes, ABE [address] [place] [address] [email or web address] PHCM Electronics Teacher 07/27/21 08/10/21 documented as of this encounter Additional Source Comments The information contained in this document represents components of the legal health record. It is not the complete legal health record.[facility]
--- OUTSIDE RECORDS SUMMARY | 2025-04-16 16:51 | XMS_ITS | Encounter Summary ---
Author Organization [facility] Address [address] [facility] [address] [place] [address] Phone Care Team Providers Care General Magistrate Name Role Phone Giovanna Garcia NP Primary Care Provider [phone] Geronimo Beltran MD Unavailable [phone] Emely Barnes RN Unavailable [phone] Unknown, Unknown Primary Care Provider Hayley Couch MD Primary Care Provider Encounter Details Date Type Department Care Team (Late Contact Info) Description 03/20/2020 Procedure Pass [facility] Interventional [facility] 30 [place] [address] Social History Tobacco Use Types Packs/Day Years [...] Office Visit [facility] [address] [place] [address] Efrain Melgar DO 22 [place] [address] [email or web address] documented as of this encounter Visit Diagnoses [...] 4:31 PM EST COVID-19 07/01/2021 07/01/2021 07/22/2021 1:2 1 AM EST CoV-Risk 03/29/2022 03/29/2022 04/09/2022 1:22 AM EDT Assessment Noted Time PHQ-2 Depression Total Score: 0 07/25/19 2:25 PM EST documented as of this encounter Care Teams General Magistrate Relationship Specialty Start Date End Date Giovanna Garcia NP [email or web address] PCP - General Family Medicine 11/15/17 08/22/23 Unknown, Unknown, MD PCP - General 08/23/23 03/07/24 Hayley Ni MD [address] [facility] [place] [address] PCP - General Internal Medicine 03/08/24 Geronimo Beltran MD [address] [place] [address] [email or web address] Insurance Assigned Provider 4/10/21 1/6/24 Emely Barnes, RN [address] [place] [address] [email or web address] [facility] Retail Account Manager 07/27/21 08/10/21 documented as of this encounter Additional Source Comments The information contained in this document represents components of the legal health record. It is not the complete legal health record.[facility]
--- OUTSIDE RECORDS SUMMARY | 2025-04-16 16:51 | XMS_ITS | Encounter Summary ---
Author Organization [facility] Address [address] [employer] [facility] [address] [place] [address] Phone Care Team Providers Care Rn Hospice Name Role Phone Giovanna Garcia NP Primary Care Provider [phone] Geronimo Beltran MD Unavailable [phone] Emely Barnes RN Unavailable [phone] Unknown, Unknown Primary Care Provider Hayley Couch MD Primary Care Provider Encounter Details Date Type Department Care Team (Late st Contact Info) Description 09/10/2018 Procedure Pass [facility], [address] [address] Social History Tobacco Use Types Packs/Day Years [...] PM EST Office Visit [facility] [address] [place] [address] Efrain Melgar DO [address] [place] [address] [email or web address] documented as of this encounter Visit [...] as of this encounter Care Teams Rn Hospice Relationship Specialty Start Date End Date Giovanna Garcia WELLNESS HEALTH COACH [email or web address] PCP - General Family Medicine 11/15/17 08/22/23 Unknown, Daxa, MD PCP - General 08/23/23 03/07/24 Hayley Ni MD [facility] [place] [place] [address] PCP - General Internal Medicine 03/08/24 Geronimo Beltran MD [address] [place] [address] [email or web address] Insurance Assigned Provider 09/19/20 06/17/23 Emely Barnes, RN [address] [place] [address] [email or web address] PHCM Pe Electrical Engineer 07/27/21 08/10/21 documented as of this encounter Additional Source Comments The information contained in this document represents components of the legal health record. It is not the complete legal health record.[facility]
--- OUTSIDE RECORDS SUMMARY | 2025-04-16 16:51 | XMS_ITS | Encounter Summary ---
Author Organization [facility] Address [address] [place] [address] Phone Care Team Providers Care Senior Electronics Technician Name Role Phone Giovanna Garcia NP Primary Care Provider [phone] Geronimo Beltran MD Unavailable [phone] Emely Barnes RN Unavailable [phone] Unknown, Unknown Primary Care Provider Hayley Couch MD Primary Care Provider Encounter Details Date Type Department Care Team (Late st Contact Info) Description 06/02/2020 Procedure Pass [facility], Ct Scan - [address] [address] Social History Tobacco Use Types Packs/Day Years [...] 3:39 PM EST Justino España RN * [place] Suicide Severity Rating Scale (Screener/Recent Self-Report) Question [...] 1:40 PM EST Office Visit [facility] [address] [place] [address] Efrain Melgar DO [address] [place] [address] documented as of this encounter Visit Diagnoses [...] as of this encounter Care Teams Senior Electronics Technician Relationship Specialty Start Date End Date Giovanna Garcia METAL COATER OPERATOR PCP - General Family Medicine 11/15/17 08/22/23 Unknown, Unknown, MD PCP - General 08/23/23 03/07/24 Hayley Ni MD [address] [place] [address] [place] [address] PCP - General Internal Medicine 03/08/24 Geronimo Beltran MD [address] [place] [address] [email or web address] Insurance Assigned Provider 09/19/20 06/17/23 Emely Barnes, RN [address] [place] [address] [email or web address] PHCM Filler Wiper 07/27/21 08/10/21 documented as of this encounter Additional Source Comments The information contained in this document represents components of the legal health record. It is not the complete legal health record.[facility]
--- OUTSIDE RECORDS SUMMARY | 2025-04-16 16:51 | XMS_ITS | Encounter Summary ---
Author Organization [facility] Address [address] [place] [address] Phone Care Team Providers Care Saw Tailer Name Role Phone Giovanna Garcia NP Primary Care Provider [phone] Geronimo Beltran MD Unavailable [phone] Emely Barnes RN Unavailable [phone] Unknown, Unknown Primary Care Provider Hayley Couch MD Primary Care Provider Reason for Referral * MRI/CAT Scan - Closed Specialty Diagnoses / Procedures Referred By Braulio t Referred To Contact Procedures CT Neck Outside (No Interpretation) System, Provider Not In, PhD [address] [address] Referral ID Status Reason Start Date Expiration Date Visits Re quested Visits Authorized [id number] Closed 10/04/2018 10/04/2019 1 1 Encounter Details Date Type Department Care Team (Late st Contact Info) Description 10/04/2018 Ancillary Orders ,Outside Imaging [address] [place], [place] [id number] System, Provider Not In, PhD Formerly [facility] [employer] [address] Social History Tobacco Use Types Packs/Day Years [...] PM EST Office Visit [facility] [address] [place] [address] Efrain Melgar DO [address] [place] [address] [email or web address] documented as of this encounter Results * [...] documented as of this encounter Care Teams Saw Tailer Relationship Specialty Start Date End Date Giovanna Garcia NP [email or web address] PCP - General Family Medicine 11/15/17 08/22/23 Unknown, Unknown, MD PCP - General 08/23/23 03/07/24 Hayley Ni MD [address] [place] [address] [place] [address] PCP - General Internal Medicine 03/08/24 Geronimo Beltran MD [address] [place] [address] [email or web address] Insurance Assigned Provider 09/19/20 06/17/23 Emely Barnes, RN [address] [place] [address] [email or web address] PHCM Frame Assembler 07/27/21 08/10/21 documented as of this encounter Additional Source Comments The information contained in this document represents components of the legal health record. It is not the complete legal health record.[facility]
--- OUTSIDE RECORDS SUMMARY | 2025-04-16 16:52 | XMS_ITS | Encounter Summary ---
Author Organization [facility] Address [address] [place] [address] Phone Care Team Providers Care Project Manager/Team Coach Name Role Phone Giovanna Garcia NP Primary Care Provider [phone] Geronimo Beltran MD Unavailable [phone] Emely Barnes RN Unavailable [phone] Unknown, Unknown Primary Care Provider Hayley Couch MD Primary Care Provider Encounter Details Date Type Department Care Team (Late st Contact Info) Description 12/26/2019 Ancillary [facility] [address] Floor, [address] [place] [address] Diana Hopkins, SOCIAL PROBLEMS SPECIALIST [address] [place] [address] [email or web address] Palpitations Social History Tobacco Use Types Packs/Day [...] PM EST Office Visit [facility] [address] [place] [address] Efrain Melgar DO [address] [place] [address] [email or web address] Scheduled Orders Name Type Priority Associated Diagnoses [...] documented as of this encounter Care Teams Project Manager/Team Coach Relationship Specialty Start Date End Date Giovanna Garcia, LIBRARY PAGE PCP - General Family Medicine 11/15/17 08/22/23 Unknown, Unknown, MD PCP - General 08/23/23 03/07/24 Hayley Ni MD [address] [place] [address] [place] [address] PCP - General Internal Medicine 03/08/24 Geronimo Beltran MD [address] [place] [address] [email or web address] Insurance Assigned Provider 09/19/20 06/17/23 Emely Barnes, RN [address] [place] [address] [email or web address] PHCM Salad Counter Attendant 07/27/21 08/10/21 documented as of this encounter Additional Source Comments The information contained in this document represents components of the legal health record. It is not the complete legal health record.[facility]
--- OUTSIDE RECORDS SUMMARY | 2025-04-16 16:52 | XMS_ITS | Encounter Summary ---
Author Organization [facility] Address [address] [facility] [address] [place] [address] Phone Care Team Providers Care Supervisor Rod Placing Name Role Phone Giovanna Garcia NP Primary Care Provider [phone] Geronimo Beltran MD Unavailable [phone] Emely Barnes RN Unavailable [phone] Unknown, Unknown Primary Care Provider Hayley Couch MD Primary Care Provider Encounter Details Date Type Department Care Team (Late Contact Info) Description 09/24/2020 Procedure Pass [facility] [address] [place] [address] Social History Tobacco Use Types Packs/Day Years [...] PM EST Office Visit [facility] [address] [place] [address] [place] [address] [email or web address] documented as [...] as of this encounter Care Teams Supervisor Rod Placing Relationship Specialty Start Date End Date Giovanna Garcia NP [email or web address] PCP - General Family Medicine 11/15/17 08/22/23 Unknown, Daxa, PCP - General 08/23/23 03/07/24 Hayley Ni MD [facility] [place] [address] PCP - General Internal Medicine 03/08/24 Geronimo Beltran MD [address] [place] [address] [email or web address] Insurance Assigned Provider 09/19/20 06/17/23 Emely Barnes, ABE [address] [place] [address] PHCM Tick Eradicator 07/27/21 08/10/21 documented as of this encounter Additional Source Comments The information contained in this document represents components of the legal health record. It is not the complete legal health record.[facility]
--- OUTSIDE RECORDS SUMMARY | 2025-04-16 16:52 | XMS_ITS | Encounter Summary ---
Author Organization [facility] Address [address] [facility] [address] [place] [address] Phone Care Team Providers Care Locum Tenens Hospitalist Name Role Phone Geronimo Beltran MD Primary Care Provider [phone] Giovanna Garcia NP Primary Care Provider [phone] Geronimo Beltran MD Unavailable [phone] Emely Barnes RN Unavailable [phone] Unknown, Unknown Primary Care Provider Hayley Couch MD Primary Care Provider Encounter Details Date Type Department Care Team (Late st Contact Info) Description 09/08/2017 Procedure Pass [facility], Ct Scan - [address] [address] Social History Tobacco Use Types Packs/Day Years [...] PM EST Office Visit [facility] [address] [place] [address] Efrain Melgar DO [address] [place] [address] [email or web address] documented as of this encounter [...] documented as of this encounter Care Teams Locum Tenens Hospitalist Relationship Specialty Start Date End Date Geronimo Beltran MD [address] [place] [address] [email or web address] PCP - General Internal Medicine 09/08/17 11/14/17 Giovanna Garcia, PROBATION COUNSELOR [address] [place] [address] [email or web address] PCP - General Family Medicine 11/15/17 08/22/23 Unknown, Daxa, MD PCP - General 08/23/23 03/07/24 Hayley Ni MD [address] [place] [address] [place] [address] PCP - General Internal Medicine 03/08/24 Geronimo Beltran MD [address] [place] [address] [email or web address] Insurance Assigned Provider 09/19/20 06/17/23 Emely Barnes, RN [address] [place] [address] [email or web address] [facility] Speech Language Pathologist Travel 07/27/21 08/10/21 documented as of this encounter Additional Source Comments The information contained in this document represents components of the legal health record. It is not the complete legal health record.[facility]
--- OUTSIDE RECORDS SUMMARY | 2025-04-16 16:52 | XMS_ITS | Encounter Summary ---
Author Organization [facility] Address [address] [facility] [address] [place] [address] Phone Care Team Providers Care Welder Oxyhydrogen Name Role Phone Giovanna Garcia NP Primary Care Provider [phone] Geronimo Beltran MD Unavailable [phone] Emely Barnes RN Unavailable [phone] Unknown, Unknown Primary Care Provider Hayley Couch MD Primary Care Provider Encounter Details Date Type Department Care Team (Late Contact Info) Description 09/30/2020 Procedure Pass [facility] [address] [place] [address] Social History Tobacco Use Types Packs/Day Years [...] PM EST Office Visit [facility] [address] [place] [address] [place] [address] [email or web address] [...] documented as of this encounter Care Teams Welder Oxyhydrogen Relationship Specialty Start Date End Date Giovanna Garcia NP [email or web address] PCP - General Family Medicine 11/15/17 08/22/23 Unknown, Daxa, PCP - General 08/23/23 03/07/24 Hayley Ni MD [facility] [address] PCP - General Internal Medicine 03/08/24 Geronimo Beltran MD [address] [place] [address] [email or web address] Insurance Assigned Provider 09/19/20 06/17/23 Emely Barnes, ABE [address] [place] [address] PHCM Orthodontic Technician Assistant 07/27/21 08/10/21 documented as of this encounter Additional Source Comments The information contained in this document represents components of the legal health record. It is not the complete legal health record.[facility]
--- OUTSIDE RECORDS SUMMARY | 2025-04-16 16:52 | XMS_ITS | Clinical Summary ---
Author Organization [facility] Address [address] [place] [address] Phone Care Team Providers Care Card Setter Name Role Phone Hayley Ni MD Primary [...] mg total) by mouth daily. 3 Active [place] Saline 0.65 % nasal spray 2 DRP [...] RSV Immunization Adult Patients (1 - Risk 50-74 years 1-dose series) 2004 Breast Cancer Screening 05/28/2021 05/28/2019 COVID-19 Vaccine [...] age to complete this topic Insurance MEDICARE [facility] Care Teams Card Setter Relationship Specialty Start Date End Date Hayley Ni MD [address] [place] [address] PCP - General 11/10/23
--- OUTSIDE RECORDS SUMMARY | 2025-04-16 16:52 | XMS_ITS | Encounter Summary ---
Author Organization [facility] Address [address] [place] [address] Phone Care Team Providers Care Supervisor Inspection And Testing Name Role Phone Giovanna Garcia NP Primary Care Provider [phone] Geronimo Beltran MD Unavailable [phone] Unknown, Unknown Primary Care Provider Hayley Couch MD Primary Care Provider Encounter Details Date Type Department Care Team (Late st Contact Info) Description 11/02/2021 Ancillary Orders [facility] [address] Floor, [address] [place] [address] Patrice Quintero MD [address] [place] [phone] [email or web address] Social History Tobacco Use Types Packs/Day Years [...] high school, GED, job training, learning the Mongolian language, technical skills, or developing parenting skills)? [...] PM EST Office Visit [facility] [address] [place] [address] Efrain Melgar DO [address] [place] [address] documented as of this encounter Visit Diagnoses Not on filedocumented in this encounter Additional Health Concerns Infection Onset Date Last Indicated Resolved Time CoV-Risk 03/29/2022 03/29/2022 04/09/2022 1:22 AM EDT Assessment Noted Time PHQ-2 Depression Total Score: 2 08/11/19 22 9:20 AM EST documented as of this encounter Care Teams Supervisor Inspection And Testing Relationship Specialty Start Date End Date Giovanna Garcia NP [email or web address] PCP - General Family Medicine 11/15/17 08/22/23 Unknown, Unknown, MD PCP - General 08/23/23 03/07/24 Hayley Ni MD [facility] [place] [address] PCP - General Internal Medicine 03/08/24 Geronimo Beltran MD [address] [place] [address] [email or web address] Insurance Assigned Provider 09/19/20 06/17/23 documented as of this encounter Additional Source Comments The information contained in this document represents components of the legal health record. It is not the complete legal health record.[facility]
--- OUTSIDE RECORDS SUMMARY | 2025-04-16 16:52 | XMS_ITS | Encounter Summary ---
Author Organization [facility] Address [address] [facility] [address] [place] [address] Phone Care Team Providers Care Recreational Resort Manager Name Role Phone Goivanna Garcia ACID SPLICER Primary Care Provider [phone] Geronimo Beltran MD Primary Care Provider [phone] Giovanna Garcia ACID SPLICER Primary Care Provider [phone] Geronimo Beltran MD Unavailable [phone] Emely Barnes RN Unavailable [phone] Unknown, Unknown Primary Care Provider Hayley Couch MD Primary Care Provider Encounter Details Date Type Department Care Team (Late st Contact Info) Description 09/05/2017 Procedure Pass [place] Admitting Dept - Virtual Department [address] [place] [address] Social History Tobacco Use Types Packs/Day Years [...] PM EST Office Visit [facility] [address] [place] [address] Efrain Melgar DO 22 [place] [address] documented as of this encounter Visit Diagnoses [...] documented as of this encounter Care Teams Recreational Resort Manager Relationship Specialty Start Date End Date Giovanna Garcia NP PCP - General Family Medicine 08/18/17 09/07/17 Geronimo Beltran MD [address] [place] [address] [email or web address] PCP - General Internal Medicine 09/08/17 11/14/17 Giovanna Garcia NP PCP - General Family Medicine 11/15/17 08/22/23 Unknown, Daxa, PCP - General 08/23/23 03/07/24 Hayley Ni MD [facility] [place] [address] PCP - General Internal Medicine 03/08/24 Geronimo Beltran MD [address] [place] [address] [email or web address] Insurance Assigned Provider 09/19/20 06/17/23 Emely Barnes, RN [address] [place] [address] [email or web address] PHCM Hall Worker 07/27/21 08/10/21 documented as of this encounter Additional Source Comments The information contained in this document represents components of the legal health record. It is not the complete legal health record.[facility]
--- OUTSIDE RECORDS SUMMARY | 2025-04-16 16:52 | XMS_ITS | Encounter Summary ---
Author Organization [facility] Address [address] [place] [address] Phone Care Team Providers Care Boring Mill Set Up Operator Vertical Name Role Phone Giovanna Garcia NP Primary Care Provider [phone] Geronimo Beltran MD Unavailable Emely Barnes RN Unavailable [phone] Unknown, Unknown Primary Care Provider Hayley Couch MD Primary Care Provider Encounter Details Date Type Department Care Team (Late st Contact Info) Description 08/10/2021 Procedure Pass [address] [place] [address] Social History Tobacco Use Types Packs/Day Years [...] high school, GED, job training, learning the Anguillan language, technical skills, or developing parenting skills)? [...] PM EST Office Visit [facility] [address] [place] [address] Efrain Melgar DO [address] [place] [address] documented as of this encounter Visit Diagnoses Not on filedocumented in this encounter Additional Health Concerns Infection Onset Date Last Indicated Resolved Time CoV-Risk 03/29/2022 03/29/2022 04/09/2022 1:22 AM EDT Assessment Noted Time PHQ-2 Depression Total Score: 2 08/11/19 22 9:20 AM EST documented as of this encounter Care Teams Boring Mill Set Up Operator Vertical Relationship Specialty Start Date End Date Giovanna Garcia, PREVENTION COORDINATOR [email or web address] PCP - General Family Medicine 11/15/17 08/22/23 Unknown, Daxa, MD PCP - General 08/23/23 03/07/24 Hayley Ni MD [address] [place] [address] [place] [address] PCP - General Internal Medicine 03/08/24 Geronimo Beltran MD [address] [place] [address] [email or web address] Insurance Assigned Provider 09/19/20 06/17/23 Emely Barnes, RN [address] [place] [address] [email or web address] PHCM Hand Zipper Trimmer 07/27/21 08/10/21 documented as of this encounter Additional Source Comments The information contained in this document represents components of the legal health record. It is not the complete legal health record.[facility]
--- OUTSIDE RECORDS SUMMARY | 2025-04-16 16:52 | XMS_ITS | Encounter Summary ---
Author Organization [facility] Address [address] [facility] [address] [place] [address] Phone Care Team Providers Care Injection Machine Operator Name Role Phone Giovanna Garcia NP Primary Care Provider [phone] Geronimo Beltran MD Unavailable [phone] Emely Barnes RN Unavailable [phone] Unknown, Unknown Primary Care Provider Hayley Couch MD Primary Care Provider Encounter Details Date Type Department Care Team (Late st Contact Info) Description 09/30/2020 Procedure Pass [facility], Ct Scan - [address] [address] Social History Tobacco Use Types Packs/Day Years [...] 1:40 PM EST Office Visit [facility] [address] [place] [address] [email or web address] documented as of this [...] documented as of this encounter Care Teams Injection Machine Operator Relationship Specialty Start Date End Date Giovanna Garcia NP [email or web address] PCP - General Family Medicine 11/15/17 08/22/23 Unknown, Unknown, PCP - General 08/23/23 03/07/24 Hayley Ni MD [facility] [address] PCP - General Internal Medicine 03/08/24 Geronimo Beltran MD [address] [place] [address] [email or web address] Insurance Assigned Provider 09/19/20 06/17/23 Emely Barnes, RN [address] [place] [address] [email or web address] PH[employer] Executive [employer] Sales 07/27/21 08/10/21 documented as of this encounter Additional Source Comments The information contained in this document represents components of the legal health record. It is not the complete legal health record.[facility]
--- OUTSIDE RECORDS SUMMARY | 2025-04-16 16:52 | XMS_ITS | Encounter Summary ---
Author Organization [facility] Address [address] [place] [address] Phone Care Team Providers Care Pressure Controller Name Role Phone Giovanna Garcia NP Primary Care Provider [phone] Geronimo Beltran MD Unavailable [phone] Emely Barnes RN Unavailable [phone] Unknown, Unknown Primary Care Provider Hayley Couch MD Primary Care Provider Encounter Details Date Type Department Care Team (Late st Contact Info) Description 08/10/2021 Procedure Pass [address] [place] [address] Social History Tobacco Use Types Packs/Day Years [...] high school, GED, job training, learning the Japanese language, technical skills, or developing parenting skills)? [...] 1:40 PM EST Office Visit [facility] [address] [place] [address] Efrain Melgar DO [address] [place] [address] documented as of this encounter Visit Diagnoses Not on filedocumented in this encounter Additional Health Concerns Infection Onset Date Last Indicated Resolved Time CoV-Risk 03/29/2022 03/29/2022 04/09/2022 1:22 AM EDT Assessment Noted Time PHQ-2 Depression Total Score: 2 08/11/19 22 9:20 AM EST documented as of this encounter Care Teams Pressure Controller Relationship Specialty Start Date End Date Giovanna Garcia, ASSISTANT CLINICAL DIRECTOR [email or web address] PCP - General Family Medicine 11/15/17 08/22/23 Unknown, Daxa, MD PCP - General 08/23/23 03/07/24 Hayley Ni MD [address] [place] [address] [place] [address] PCP - General Internal Medicine 03/08/24 Geronimo Beltran MD [address] [place] [address] [email or web address] Insurance Assigned Provider 09/19/20 06/17/23 Emely Barnes, RN [address] [place] [address] [email or web address] PHCM Residence Counselor 07/27/21 08/10/21 documented as of this encounter Additional Source Comments The information contained in this document represents components of the legal health record. It is not the complete legal health record.[facility]
--- OUTSIDE RECORDS SUMMARY | 2025-04-16 16:52 | XMS_ITS | Encounter Summary ---
Author Organization [facility] Address [address] [facility] [address] [place] [address] Phone Care Team Providers Care Fusion Operator Name Role Phone Geronimo Beltran MD Primary Care Provider [phone] Giovanna Garcia NP Primary Care Provider [phone] Geronimo Beltran MD Unavailable [phone] Emely Barnes RN Unavailable [phone] Unknown, Unknown Primary Care Provider Hayley Couch MD Primary Care Provider Encounter Details Date Type Department Care Team (Late Contact Info) Description 10/12/2017 Procedure Pass [facility], Ct Scan - [address] [address] Social History Tobacco Use Types Packs/Day Years [...] PM EST Office Visit [facility] [address] [place] [address] Efrain Melgar DO [address] [place] [address] [email or web address] documented as of this encounter Visit Diagnoses [...] documented as of this encounter Care Teams Fusion Operator Relationship Specialty Start Date End Date Geronimo Beltran MD [address] [place] [address] [email or web address] PCP - General Internal Medicine 09/08/17 11/14/17 Giovanna Garcia NP [address] [place] [address] [email or web address] PCP - General Family Medicine 11/15/17 08/22/23 Unknown, Daxa, PCP - General 08/23/23 03/07/24 Hayley Ni MD [address] [place] [address] [place] [address] PCP - General Internal Medicine 03/08/24 Geronimo Beltran MD [address] [place] [address] [email or web address] Insurance Assigned Provider 09/19/20 06/17/23 Emely Barnes, RN [address] [place] [address] [email or web address] [facility] School Plant Consultant 07/27/21 08/10/21 documented as of this encounter Additional Source Comments The information contained in this document represents components of the legal health record. It is not the complete legal health record.[facility]
--- OUTSIDE RECORDS SUMMARY | 2025-04-16 16:53 | XMS_ITS | Encounter Summary ---
Author Organization [facility] Address [address] [place] [address] Phone Care Team Providers Care Emg Technician Name Role Phone Giovanna Garcia NP Primary Care Provider [phone] Geronimo Beltran MD Unavailable [phone] Unknown, Unknown Primary Care Provider Hayley Couch MD Primary Care Provider Encounter Details Date Type Department Care Team (Latest Contact Info) Description 11/02/2021 Ancillary Orders Non-Invasive Cardiology [address] [place] [address] Patrice Quintero MD [address] [place] [address] [email or web address] Syncope and collapse; Paroxysmal atrial [...] high school, GED, job training, learning the Luxembourger language, technical skills, or developing parenting skills)? [...] PM EST Office Visit [facility] [address] [place] [address] Efrain Melgar DO [address] [place] [address] [email or web address] documented as of this encounter Results * DEVICE CHECK: ILR IN-HOME INTERROGATION (02/02/2022 12:23 PM EDT) Narrative Radu Denise DO - 02/08/2022 9:50 AM EDT Remote interrogation of implantable loop recorder. Reason for implant: Syncope Supervisor Coremaker: [employer] Symptoms: 0 Pauses: 0 Bradycardia: 0 [...] documented as of this encounter Care Teams Emg Technician Relationship Specialty Start Date End Date Giovanna Garcia NP PCP - General Family Medicine 11/15/17 08/22/23 Unknown, Unknown, MD PCP - General 08/23/23 03/07/24 Hayley Ni MD [address] [place] [address] [place] [address] PCP - General Internal Medicine 03/08/24 Geronimo Beltran MD [address] [place] [address] [email or web address] Insurance Assigned Provider 09/19/20 06/17/23 documented as of this encounter Additional Source Comments The information contained in this document represents components of the legal health record. It is not the complete legal health record.[facility]
--- OUTSIDE RECORDS SUMMARY | 2025-04-16 16:53 | XMS_ITS | Encounter Summary ---
Author Organization [facility] Address [address] [place] [address] Phone Care Team Providers Care Physiotherapy Practice Manager Name Role Phone Giovanna Garcia ORTHOPEDIC MECHANIC Primary Care Provider [phone] Geronimo Beltran MD Unavailable [phone] Emely Barnes RN Unavailable [phone] Unknown, Unknown Primary Care Provider Hayley Couch MD Primary Care Provider Encounter Details Date Type Department Care Team (Late st Contact Info) Description 11/16/2020 Ancillary Orders [facility] [address] [facility] 3rd Floor, [address] [place] [address] Patrice Quintero MD [address] [place] [phone] [email or web address] Social History Tobacco Use Types Packs/Day [...] PM EST Office Visit [facility] [address] [place] [address] [place] [address] [email or web address] documented as of this encounter Visit Diagnoses [...] documented as of this encounter Care Teams Physiotherapy Practice Manager Relationship Specialty Start Date End Date Giovanna Garcia NP PCP - General Family Medicine 11/15/17 08/22/23 Unknown, Unknown, MD PCP - General 08/23/23 03/07/24 Hayley Ni MD [facility] [address] [place] PCP - General Internal Medicine 03/08/24 Geronimo Beltran MD [address] [place] [address] [email or web address] Insurance Assigned Provider 09/19/20 06/17/23 Emely Barnes, RN [address] [place] [address] [email or web address] [facility] Tufting Machine Fixer 07/27/21 08/10/21 documented as of this encounter Additional Source Comments The information contained in this document represents components of the legal health record. It is not the complete legal health record.[facility]
--- OUTSIDE RECORDS SUMMARY | 2025-04-16 16:54 | XMS_ITS | Encounter Summary ---
Author Organization [facility] Address [address] [employer] [facility] [address] [place] [address] Phone Care Team Providers Care Cyber Security Analyst Name Role Phone Giovanna Garcia RHYTHMIC GYMNASTICS COACH Primary Care Provider [phone] Geronimo Beltrna MD Unavailable [phone] Emely Barnes RN Unavailable [phone] Unknown, Unknown Primary Care Provider Hayley Couch MD Primary Care Provider Encounter Details Date Type Department Care Team (Late st Contact Info) Description 11/16/2020 Ancillary Orders Non-Invasive Cardiology [address] [place] [address] Patrice Quintero MD 30 [place] [address] [email or web address] Syncope and collapse Social [...] PM EST Office Visit [facility] [address] [place] [address] RamónEfrain, DO [address] [place] [address] [email or web address] documented as of this encounter Results * (ABNORMAL) DEVICE CHECK: ILR IN-HOME INTERROGATION (11/16/2020 10:16 AM EDT) Narrative Patrice Quintero MD - 11/23/2020 1:10 PM EDT Remote interrogation of implantable loop recorder. Reason for implant: Syncope Tub Washer: Status Overload Symptoms: 0 Pauses: 0 Bradycardia: 0 Tachycardia: [...] documented as of this encounter Care Teams Cyber Security Analyst Relationship Specialty Start Date End Date Giovanna Garcia NP [email or web address] PCP - General Family Medicine 11/15/17 08/22/23 Unknown, Unknown, MD PCP - General 08/23/23 03/07/24 Hayley Ni MD [facility] [place] [address] PCP - General Internal Medicine 03/08/24 Geronimo Beltran MD [address] [place] [address] [email or web address] Insurance Assigned Provider 09/19/20 06/17/23 Emely Barnes, RN [address] [place] [address] [email or web address] [facility] Treasury Director 07/27/21 08/10/21 documented as of this encounter Additional Source Comments The information contained in this document represents components of the legal health record. It is not the complete legal health record.[facility]
--- OUTSIDE RECORDS SUMMARY | 2025-04-16 16:54 | XMS_ITS | Encounter Summary ---
Author Organization [facility] Address [address] [facility] [address] [place] [address] Phone Care Team Providers Care Tool Room Attendant Name Role Phone Giovanna Garcia NP Primary Care Provider [phone] Geronimo Beltran MD Unavailable [phone] Emely Barnes RN Unavailable [phone] Unknown, Unknown Primary Care Provider Hayley Couch MD Primary Care Provider Reason for Referral * MRI/CAT Scan - Closed Specialty Diagnoses / Procedures Referred By Braulio sheehan Referred To Contact Radiology Diagnoses White matter disease, unspecified Numbness Procedures MRI Thoracic Spine Efrain Elliott MD Phone: tel: fax: [email or web address] Referral ID Status Reason Start Date Expiration Date Visits Re quested Visits Authorized [id number] Closed 03/17/2020 03/17/2021 1 1 Encounter Details Date Type Department Care Team (Latest Contact Info) Description 03/17/2020 Transcribe Orders Virtual Department [address] [place] [address] Efrain Elliott MD [address] [place] [address], [address] [place], [place] [phone] [email or web address] White matter disease, unspecified (Primary [...] PM EST Office Visit [facility] [address] [place] [address] Efrain Melgar DO [address] [place] [address] [email or web address] documented as of this encounter Results * [...] 3. No disc protrusion or stenosis. POS [id number] Narrative 03/26/2020 9:49 AM EDT TECHNIQUE: 1.5 [...] 3. No disc protrusion or stenosis. POS [id number] Efrain Elliott MD IMG MR XSPECIALTY Final [...] documented as of this encounter Care Teams Tool Room Attendant Relationship Specialty Start Date End Date Giovanna Garcia NP [email or web address] PCP - General Family Medicine 11/15/17 08/22/23 Unknown, Daxa, PCP - General 08/23/23 03/07/24 Hayley Ni MD [facility] [place] [address] PCP - General Internal Medicine 03/08/24 Geronimo Beltran MD [address] [place] [address] [email or web address] Insurance Assigned Provider 09/19/20 06/17/23 Emely Barnes, ABE [address] [place] [address] [email or web address] [facility] Recycling Operator 07/27/21 08/10/21 documented as of this encounter Additional Source Comments The information contained in this document represents components of the legal health record. It is not the complete legal health record.[facility]
--- OUTSIDE RECORDS SUMMARY | 2025-04-16 16:54 | XMS_ITS | Encounter Summary ---
Author Organization [facility] Address [address] [place] [address] Phone Care Team Providers Care Radiation Physicist Name Role Phone Giovanna Garcia NP Primary Care Provider [phone] Geronimo Beltran MD Unavailable [phone] Unknown, Unknown Primary Care Provider Hayley Couch MD Primary Care Provider Encounter Details Date Type Department Care Team (Late st Contact Info) Description 11/10/2021 Procedure Pass [facility], Ct Scan - [address] [phone] Social History Tobacco Use Types Packs/Day Years [...] high school, GED, job training, learning the [place] Ver[place] language, technical skills, or developing parenting skills)? [...] PM EST Office Visit [facility] [address] [place] [address] Efrain Melgar DO [address] [place] [address] documented as of this encounter Visit Diagnoses Not on filedocumented in this encounter Additional Health Concerns Infection Onset Date Last Indicated Resolved Time CoV-Risk 03/29/2022 03/29/2022 04/09/2022 1:22 AM EDT Assessment Noted Time PHQ-2 Depression Total Score: 2 08/11/19 9:20 AM EST documented as of this encounter Care Teams Radiation Physicist Relationship Specialty Start Date End Date Giovanna Garcia NP [email or web address] PCP - General Family Medicine 11/15/17 08/22/23 Unknown, Unknown, PCP - General 08/23/23 03/07/24 Hayley Ni MD [address] [place] [address] [place] [address] PCP - General Internal Medicine 03/08/24 Geronimo Beltran MD [address] [place] [address] [email or web address] Insurance Assigned Provider 09/19/20 06/17/23 documented as of this encounter Additional Source Comments The information contained in this document represents components of the legal health record. It is not the complete legal health record.[facility]
--- OUTSIDE RECORDS SUMMARY | 2025-04-16 16:54 | XMS_ITS | Encounter Summary ---
Author Organization [facility] Address [address] [facility] [address] [place] [address] Phone Care Team Providers Care Broadcast Systems Engineer Name Role Phone Giovanna Garcia INDUSTRIAL X RAY OPERATOR Primary Care Provider [phone] Geronimo Beltran MD Unavailable [phone] Emely Barnes RN Unavailable [phone] Unknown, Unknown Primary Care Provider Hayley Couch MD Primary Care Provider Encounter Details Date Type Department Care Team (Late st Contact Info) Description 02/16/2021 Ancillary Orders Non-Invasive Cardiology [address] [place] [address] Patrice Quintero MD [address] [place] [address] [email or web address] Syncope and collapse Social History [...] PM EST Office Visit [facility] [address] [place] [address] RamónEfrain, [address] [place] [address] [email or web address] documented as of this encounter Results * DEVICE CHECK: ILR IN-HOME INTERROGATION (02/16/2021 9:45 AM EDT) Narrative Patrice Quintero MD - 02/21/2021 2:58 PM EDT Remote interrogation of implantable loop recorder. 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: [employer] Symptoms: 0 Pauses: 0 Bradycardia: 0 Tachycardia: [...] documented as of this encounter Care Teams Broadcast Systems Engineer Relationship Specialty Start Date End Date Giovanna Garcia NP [email or web address] PCP - General Family Medicine 11/15/17 08/22/23 Unknown, Daxa, PCP - General 08/23/23 03/07/24 Hayley Ni MD [address] [place] [address] [place] [address] PCP - General Internal Medicine 03/08/24 Geronimo Beltran MD [address] [place] [address] [email or web address] Insurance Assigned Provider 09/19/20 06/17/23 Emely Barnes, RN [address] [place] [address] [email or web address] [facility] Market Research Lead 07/27/21 08/10/21 documented as of this encounter Additional Source Comments The information contained in this document represents components of the legal health record. It is not the complete legal health record.[facility]
--- OUTSIDE RECORDS SUMMARY | 2025-04-16 16:54 | XMS_ITS | Encounter Summary ---
Author Organization [facility] Address [address] [facility] [address] [place] [address] Phone Care Team Providers Care Dental Laboratory Technology Teacher Name Role Phone Giovanna Garcia NP Primary Care Provider [phone] Geronimo Beltran MD Unavailable Emely Barnes RN Unavailable [phone] Unknown, Unknown Primary Care Provider Hayley Couch MD Primary Care Provider Reason for Referral * MRI/CAT Scan - Closed Specialty Diagnoses / Procedures Referred By Braulio sheehan Referred To Contact Radiology Diagnoses Memory loss Hx of cancer of lung Procedures MRI Brain Efrain Elliott MD Phone: tel: fax: [email or web address] Referral ID Status Reason Start Date Expiration Date Visits Re quested Visits Authorized [id number] Closed 02/01/2021 02/01/2022 1 1 Encounter Details Date Type Department Care Team (Latest Contact Info) Description 02/01/2021 Transcribe Orders Virtual Department [address] [place] [address] Efrain Elliott MD [address] [place] [address], [address] [place], [place] [phone] [email or web address] Memory loss (Primary Dx); Hx [...] 1:40 PM EST Office Visit [facility] [address] [place] [address] Efrain Melgar DO [address] [place] [address] documented as of this encounter Results * [...] documented as of this encounter Care Teams Dental Laboratory Technology Teacher Relationship Specialty Start Date End Date Giovanna Garcia NP [email or web address] PCP - General Family Medicine 11/15/17 08/22/23 Unknown, Unknown, MD PCP - General 08/23/23 03/07/24 Hayley Ni MD [facility] [place] [address] PCP - General Internal Medicine 03/08/24 Geronimo Beltran MD [address] [place] [address] [email or web address] Insurance Assigned Provider 09/19/20 06/17/23 Emely Barnes, RN [address] [place] [address] [email or web address] PHCM Foot And Ankle Surgeon 07/27/21 08/10/21 documented as of this encounter Additional Source Comments The information contained in this document represents components of the legal health record. It is not the complete legal health record.[facility]
--- OUTSIDE RECORDS SUMMARY | 2025-04-16 16:54 | XMS_ITS | Encounter Summary ---
Author Organization [facility] Address [address] [facility] [address] [place] [address] Phone Care Team Providers Care Welding Machine Operator Plasma Arc Name Role Phone Giovanna Garcia NP Primary Care Provider [phone] Geronimo Beltran MD Unavailable [phone] Emely Barnes RN Unavailable [phone] Unknown, Unknown Primary Care Provider Hayley Couch MD Primary Care Provider Encounter Details Date Type Department Care Team (Late st Contact Info) Description 11/16/2020 Procedure Pass Non-Invasive Cardiology [address] [place] [address] Social History Tobacco Use Types Packs/Day Years [...] PM EST Office Visit [facility] [address] [place] [address] Efrain Melgar DO [address] [place] [address] [email or web address] documented as of this encounter Visit Diagnoses [...] documented as of this encounter Care Teams Welding Machine Operator Plasma Arc Relationship Specialty Start Date End Date Giovanna Garcia NP [email or web address] PCP - General Family Medicine 11/15/17 08/22/23 Unknown, Unknown, PCP - General 08/23/23 03/07/24 Hayley Ni MD [facility] [place] [address] PCP - General Internal Medicine 03/08/24 Geronimo Beltran MD [address] [place] [address] [email or web address] Insurance Assigned Provider 09/19/20 06/17/23 Emely Barnes, ABE [address] [place] [address] PHCM Mate Relief 07/27/21 08/10/21 documented as of this encounter Additional Source Comments The information contained in this document represents components of the legal health record. It is not the complete legal health record.[facility]
--- OUTSIDE RECORDS SUMMARY | 2025-04-16 16:54 | XMS_ITS | Encounter Summary ---
Author Organization [facility] Address [address] [facility] [address] [place] [address] Phone Care Team Providers Care X Ray Examiner Of Aircraft Name Role Phone Giovanna Garcia NP Primary Care Provider [phone] Geronimo Beltran MD Unavailable [phone] Emely Barnes RN Unavailable [phone] Unknown, Unknown Primary Care Provider Hayley Couch MD Primary Care Provider Encounter Details Date Type Department Care Team (Late st Contact Info) Description 02/16/2021 Procedure Pass Non-Invasive Cardiology [address] [place] [address] Social History Tobacco Use Types Packs/Day Years [...] PM EST Office Visit [facility] [address] [place] [address] Efrain Melgar DO [address] [place] [address] [email or web address] documented as [...] documented as of this encounter Care Teams X Ray Examiner Of Aircraft Relationship Specialty Start Date End Date Giovanna Garcia NP [email or web address] PCP - General Family Medicine 11/15/17 08/22/23 Unknown, Unknown, PCP - General 08/23/23 03/07/24 Hayley Ni MD [facility] [place] [address] PCP - General Internal Medicine 03/08/24 Geronimo Beltran MD [address] [place] [phone] [email or web address] Insurance Assigned Provider 09/19/20 06/17/23 Emely Barnes, ABE [address] [place] [address] PHCM Press Operator Meat 07/27/21 08/10/21 documented as of this encounter Additional Source Comments The information contained in this document represents components of the legal health record. It is not the complete legal health record.[facility]
--- OUTSIDE RECORDS SUMMARY | 2025-04-16 16:56 | XMS_ITS | Encounter Summary ---
Author Organization [facility] Address [address] [facility] [address] [place] [address] Phone Care Team Providers Care Hogshead Salvage Name Role Phone Giovanna Garcia NP Primary Care Provider [phone] Geronimo Beltran MD Unavailable [phone] Emely Barnes RN Unavailable [phone] Unknown, Unknown Primary Care Provider Hayley Couch MD Primary Care Provider Encounter Details Date Type Department Care Team (Late Contact Info) Description 03/20/2019 Ancillary Orders [facility],Outside [facility] [address] [place], [place] [id number] System, Provider [place] In, [place] [address] Social History Tobacco Use Types Packs/Day Years [...] PM EST Office Visit [facility] [address] [place] [address] [place] [address] Efrain Melgar DO 22 [place] [address] [email or web address] documented as of this encounter Results * [...] documented as of this encounter Care Teams Hogshead Salvage Relationship Specialty Start Date End Date Giovanna Garcia NP [email or web address] PCP - General Family Medicine 11/15/17 08/22/23 Unknown, Unknown, MD PCP - General 08/23/23 03/07/24 Hayley Ni MD [address] [place] [address] [place] [address] PCP - General Internal Medicine 03/08/24 Geronimo Beltran MD [address] [place] [address] [email or web address] Insurance Assigned Provider 09/19/20 06/17/23 Emely Barnes, RN [address] [place] [address] [email or web address] PHCM Manager Servicing 07/27/21 08/10/21 documented as of this encounter Additional Source Comments The information contained in this document represents components of the legal health record. It is not the complete legal health record.[facility]
--- OUTSIDE RECORDS SUMMARY | 2025-04-16 16:56 | XMS_ITS | Encounter Summary ---
Author Organization [facility] Address [address] [employer] [facility] [address] [place] [address] Phone Care Team Providers Care Career Services Manager Name Role Phone Giovanna Garcia NP Primary Care Provider [phone] Geronimo Beltran MD Unavailable [phone] Emely Barnes RN Unavailable [phone] Unknown, Unknown Primary Care Provider Hayley Couch MD Primary Care Provider Encounter Details Date Type Department Care Team (Late Contact Info) Description 03/20/2019 Ancillary Orders [facility],Outside [facility] [address] [place], [place] [id number] System, Provider [place] In, [place] [address] Social History Tobacco Use Types Packs/Day Years [...] PM EST Office Visit [facility] [address] [place] [address] [place] [address] Efrain Melgar DO [address] [place] [address] [email or web address] documented as [...] documented as of this encounter Care Teams Career Services Manager Relationship Specialty Start Date End Date Giovanna Garcia NP [email or web address] PCP - General Family Medicine 11/15/17 08/22/23 Unknown, Daxa, MD PCP - General 08/23/23 03/07/24 Hayley Ni MD [address] [place] [address] [place] [address] PCP - General Internal Medicine 03/08/24 Geronimo Beltran MD [address] [place] [address] [email or web address] Insurance Assigned Provider 09/19/20 06/17/23 Emely Barnes, RN [address] [place] [address] [email or web address] PHCM Relief Map Modeler 07/27/21 08/10/21 documented as of this encounter Additional Source Comments The information contained in this document represents components of the legal health record. It is not the complete legal health record.[facility]
--- OUTSIDE RECORDS SUMMARY | 2025-04-16 16:56 | XMS_ITS | Clinical Summary ---
Author Organization [facility] Address [address] [facility] [address] [place] [address] Phone Care Team Providers Care Residential Sales Representative Name Role Phone Hayley Ni MD Primary [...] done soon after waking up at a [facility] facility. Vitamin D deficiency 09/23/2024 Assessment [...] intake. I asked her to buy Citracal giee-[id number]-ozpmxyx she should take 2 tablets daily preferably [...] hopefully, they will again be available at [facility]. Syncope 03/10/2020 Assessment & Plan (07/06/2020 1:37 PM EST): No recurrence of any syncope, near syncope, or seizure symptoms recently. We will continue to check her loop recorder routinely. Assessment & Plan (03/11/2020 5:49 PM EDT): Question brought on by atrial fibrillation, versus seizure --Continue security monitor. Implantable loop recorder being planned for [...] seen vaginal bleeding or bleeding with intercourse Slitter And Rewinder exam normal Offered estrace topically Psychophysiological insomnia [...] she has elevated risk of stroke her [id number] score of 3 with 3.2% adjusted stroke [...] Team Description 02/06/2025 1:30 PM EDT Infusion [facility] [address] [place] [address] Efrain Melgar DO Age-related osteoporosis without current pathological fracture (Primary Dx) from Last 3 Months Immunizations Immunization Administration Dates Next Due INFLUENZA, SPLIT VIRUS, TRIVALENT PF 03/04/2016, 06/03/2015 INFLUENZA, SPLIT VIRUS, TRIV ALENT W/ PRESERVATIVE IM 03/12/2021,03/12/2019,01/31/2017,03/27,02/16/2011 Influenza High-Dose Quadriva lent Preservative Free IM 04/28/2022,05/31/2021,03/26/2020,03/12(Deferred: Not Available From Renovator Machine Operator) Influenza Quadrivalent Prese rvative Free IM 03/20/2019,03/20/2018 [...] PM EST Office Visit [facility] [address] [place] [address] Efrain Melgar DO [address] [place] [address] Health Maintenance Due Date Last Done Comments ZOSTER VACCINES (1 of 2) 1973 COLOGUARD 1999 FIT TEST 1999 FOBT 1999 SIGMOIDOSCOPY 1999 VIRTUAL COLONOSCOPY 1999 RSV VACCINE (1 - Risk 50-74 years 1-dose series) 2004 MAMMOGRAM 05/28/2021 05/28/2019, 11/11, 09/29/2016, Additional history exists DEPRESSION SCREENING 08/10/2022 08/10/2021 COLONOSCOPY 12/10/2024 12/10/2014 COLORECTAL CANCER SCREENING 12/10/2024 PAP SMEAR 12/23/2024 12/24/2019, 12/10, 05/18/2017, Additional history exists INFLUENZA VACCINE (#1) 2025 , 04/28/2022, 05/31/2021, Additional history exists COVID-19 VACCINE (2 - season) 2025 06/15/2021 POTASSIUM LEVEL 06/17/2025 06/17/2024, 04/12, 03/29/2022, Additional history exists BLOOD PRESSURE 08/09/2025 02/06/2025 CREATININE LEVEL 12/23/2025 12/23/2024, 11/2024, 06/17/2024, Additional history exists FOLLOW UP BONE DENSITY TESTING 01/09/2027 01/09/2025, 05/28/2019, 02/07/2019, Additional history exists LIPID PANEL 03/20/2028 03/20/2023, 10/0 02/2023, 06/16/2020, Additional history exists Adult Td,Tdap [...] this topic Medical Devices Implanted Type Area Renovator Machine Operator Device Identifier Shelf Expiration Date Model / Serial / Lot Monitor Cardiac Implantable And Patient Home Monitor [employer] - [id number] Implanted:Qty: 1 on 03/20/2020 by Radu Somers MD at [facility] Implantable Monitor [employer] 11/23/2020 [employer] / [id number] / Procedures Procedure Name Priority Date/Time Associated Diagnosis Comments BD DXA MONITORING Routine 01/09/2025 3:0 6 PM EDT Age-related osteoporosis without current pathological fracture CREATININE, 24 HR URINE Routine 12/23/2024 8:30 AM EDT Age-related osteoporosis without current pathological fracture COMPREHENSIVE METABOLIC PANEL (CMP) Routine 06/17/2024 8:43 AM EST Age-related osteoporosis without current pathological fracture LIPID PANEL Routine 06/16/2020 10:50 AM EST PAF (paroxysmal atrial fibrillation) Mixed hyperlipidemia PAP TEST Routine 12/24/2019 12:00 AM EDT BI MAMMOGRAM SCREENING WITH TOMOSYNTHESIS WITH CAD (BILATERAL) Routine 05/28/2019 10:16 AM EST Routine general medical examination at a [facility] care facility HEPATITIS C ANTIBODY, QUALITATIVE Routine 12/11/2018 3:41 PM EDT RUQ pain HM COLONOSCOPY FOR RESULT ENTRY ONLY Routine 12/10/2014 from Last 3 Months or Most Recently Relevant to Health Maintenance Results * Creatinine, 24 hr urine (12/23/2024 8:30 AM EDT) URINE CREATININE 80 mg/dL [facility] CREATININE OUTPUT 720 600 - 1,800 mg/total output [facility] Urine (Urine) 12/23/2024 8:3 0 AM EDT 12/23/2024 8:59 AM EDT Efrain Melgar DO LAB URINE ORDERABLES Final Resul t Performing Organization Address City/State/[facility] Co de Phone Number [address] [address] * (ABNORMAL) Comprehensive metabolic panel (06/17/2024 8:43 AM EST) SODIUM 139 133 - 146 mmol/L [facility] POTASSIUM 3.4 3.3 - 5.1 mmol/L [facility] CHLORIDE 94(L) 96 - 108 mmol/L [facility] CO2 32 21 - 35 mmol/L [facility] BUN 19 6 - 19 mg/dL [facility] CREATININE 0.70 0.5 - 1.5 mg/dL [facility] GLUCOSE 112(H) 70 - 99 mg/dL [facility] ALBUMIN 4.6 3.9 - 4.8 g/dL [facility] TOTAL PROTEIN 8.0 6.5 - 8.0 g/dL [facility] CALCIUM 10.0 8.4 - 10.3 mg/dL [facility] ALKALINE PHOSPHATASE 132(H) 39 - 117 U/L [facility] TOTAL BILIRUBIN 0.3 0.0 - 1.2 mg/dL [facility] AST 19 0 - 37 U/L [facility] ALT 12 0 - 40 U/L [facility] GLOBULIN 3.4 1 - 4.8 g/dL [facility] EGFR 93 >59 mL/min/1.7 3m2 [facility] Comment:Estimated glomerular filtration rate calculated using the CKD-EPI refit equation. ANION GAP 16 10 - 20 mmol/L [facility] Blood 06/17/2024 8:43 AM EST 06/17/2024 8:50 AM EST us Efrain Melgar DO LAB BLOOD BKR ORDERABLES Final R esult Performing Organization Address City/[facility]/ZIP Co de Phone Number [address] [address] * (ABNORMAL) Lipid panel (06/16/2020 10:50 AM EST) HDL 62 mg/dL [facility] Comment: Interpretation <40 mg/dL: Low HDL cholesterol (major risk factor for CHD) Greater than or equal to 60 mg/dL: High HDL cholesterol ( negative risk factor for CHD) HDL - cholesterol is affected by a number of factors, e.g. smoking, excerise, hormones, sex and age. CHOLESTEROL 250(H) 0 - 240 mg/dL [facility] TRIGLYCERIDES 145 30 - 160 mg/dL [facility] LDL 159(H) 50 - 129 mg/dL [facility] Comment: LDL levels in terms of risk for coronary heart disease: <100 mg/dL: Optimal 100-129 mg/dL: Near or above optimal 130-159 mg/dL: Borderline high 160-189 mg/dL: High >190 mg/dL: Very High CARDIAC RISK RATIO 4.0 3.3 - 4.4 C [facility] Blood 06/16/2020 10:5 0 AM EST 06/16/2020 10:58 AM EST us Giovanna Garcia SCHOOL TEACHER LAB BLOOD BKR ORDERABLES Final Result [address] [address] * Pap Smear (12/24/2019 12:00 AM EDT) 12/24/2019 12/26/2019 3:0 7 PM EDT Narrative SEE NARRATIVE - 01/03/2020 2:55 PM EDT [address] [address] Medicaid Analyst: Erna Brown MD FILM SOUND COORDINATOR Cytology Report FINAL DIAGNOSIS A. PAP SMEAR [...] 52, 56, 58, 59, 66, 68) by [employer] On[employer] HR-HPV analysis. Clinical correlation is advised. This HPV test was performed at [facility], [address] [place] [address]. This test has been FDA approved for [facility] cervical cytology specimens. The accuracy and precision of this test for all other specimen sources has been verified in the Cytopathology Laboratory of the [facility] and has not been cleared or approved by the U.S. Food and Drug Administration. Clinical correlation is advised. CLINICAL HISTORY Date of Last Menstrual Period: Not Provided Menstrual History: Post Menopausal Other Clinical Conditions: Screening Pap SPECIMEN SOURCE A: PAP SMEAR (SUREPATH) CE Patient Name: ZAYNAB MCGUIRE : 1955 (Age: 64) Sex: F Institution: [facility] Location: [facility] Date of Collection: 12/24/2019 Date of Reported: 01/03/2020 14:55 Results to: Connie Woodruff MD us Connie Woodruff MD CYTOLOGY ORDERABLES Final Result [...] (12/11/2018 3:41 PM EDT) HCV Negative Negative [facility] Comment: This is a screening test and should be confirmed with molecular testing Blood 12/11/2018 3:41 PM EDT 12/11/2018 3:48 PM EDT Giovanna Garcia NP LAB BLOOD BKR ORDERABLES Final Result [facility] [address] [place] [address] * COLONOSCOPY FOR RESULT ENTRY ONLY (12/10/2014) Colonoscopy . Historical Provider HEALTH MAINTENANCE Final Result from Last 3 Months or Most Recently Relevant to Health Maintenance Insurance MEDICARE PART A & B [employer] MEDEX SUPPLEMENT MEDICARE PART A & B [facility] MEDEX SUPPLEMENT MEDICARE PART A & B [employer] MEDEX SUPPLEMENT MEDICARE PART A & B [employer] MEDEX SUPPLEMENT MEDICARE PART A & B [employer] MEDEX SUPPLEMENT MEDICARE PART A & B [employer] MEDEX SUPPLEMENT MEDICARE PART A & B [employer] MEDEX SUPPLEMENT MEDICARE PART A & B [employer] MEDEX SUPPLEMENT MEDICARE PART A & B [employer] MEDEX SUPPLEMENT Advance Directives For more information, please contact: [phone] (9AM - 5PM Danielle/[facility], Monday-Monday) Documents on File Type Date Recorded Patient Uniform Force Captain Expl anation Healthcare Proxy 04/30/2019 9:07 AM [...] Comments Code Discussion Comments: Patient Care Teams Residential Sales Representative Relationship Specialty Start Date End Date Hayley Ni MD [facility] [place] [address] PCP - General Internal Medicine 03/08/24 Additional Source Comments The information contained in this document represents components of the legal health record. It is not the complete legal health record.[facility]
--- OUTSIDE RECORDS SUMMARY | 2025-04-16 16:56 | XMS_ITS | Encounter Summary ---
Author Organization [facility] Address [address] [facility] [address] [place] [address] Phone Care Team Providers Care Clin Nurse Name Role Phone Giovanna Garcia NP Primary Care Provider [phone] Geronimo Beltran MD Unavailable [phone] Emely Barnes RN Unavailable [phone] Unknown, Unknown Primary Care Provider Hayley Couch MD Primary Care Provider Encounter Details Date Type Department Care Team (Late st Contact Info) Description 03/10/2020 Procedure Pass [facility], Ct Scan - [address] [address] Social History Tobacco Use Types Packs/Day Years [...] 1:40 PM EST Office Visit [facility] [place] [address] Efrain Melgar DO [address] [place] [address] [email or web address] documented [...] documented as of this encounter Care Teams Clin Nurse Relationship Specialty Start Date End Date Giovanna Garcia NP [email or web address] PCP - General Family Medicine 11/15/17 08/22/23 Unknown, Unknown, MD PCP - General 08/23/23 03/07/24 Hayley Ni MD [facility] [place] [address] PCP - General Internal Medicine 03/08/24 Greonimo Beltran MD [address] [place] [address] Insurance Assigned Provider 09/19/20 06/17/23 Emely Barnes, ABE [address] [place] [address] [email or web address] PHCM Vocational Rehabilitation Consultant 07/27/21 08/10/21 documented as of this encounter Additional Source Comments The information contained in this document represents components of the legal health record. It is not the complete legal health record.[facility]
--- OUTSIDE RECORDS SUMMARY | 2025-04-16 16:56 | XMS_ITS | Encounter Summary ---
Author Organization [facility] Address [address] [facility] [address] [place] [address] Phone Care Team Providers Care Pantographer Name Role Phone Giovanna Garcia NP Primary Care Provider [phone] Geronimo Beltran MD Unavailable [phone] Emely Barnes RN Unavailable [phone] Unknown, Unknown Primary Care Provider Hayley Couch MD Primary Care Provider Encounter Details Date Type Department Care Team (Late Contact Info) Description 03/20/2019 Ancillary Orders [facility],Outside [facility] [address] [place], [place] [id number] System, Provider Not In, [place] [address] Social History Tobacco Use Types Packs/Day Years [...] PM EST Office Visit [facility] [address] [place] [address] [place] [address] Efrain Melgar DO [address] [place] [address] [email or web address] documented as [...] documented as of this encounter Care Teams Pantographer Relationship Specialty Start Date End Date Giovanna Garcia NP [email or web address] PCP - General Family Medicine 11/15/17 08/22/23 Unknown, Daxa, MD PCP - General 08/23/23 03/07/24 Hayley Ni MD [address] [place] [address] [place] [address] PCP - General Internal Medicine 03/08/24 Geronimo Beltran MD [address] [place] [address] [email or web address] Insurance Assigned Provider 09/19/20 06/17/23 Emely Barnes, RN [address] [place] [address] [email or web address] PHCM Curtains And Draperies Salesperson 07/27/21 08/10/21 documented as of this encounter Additional Source Comments The information contained in this document represents components of the legal health record. It is not the complete legal health record.[facility]
--- OUTSIDE RECORDS SUMMARY | 2025-04-16 16:56 | XMS_ITS | Patient Health Record ---
Author Organization [facility] Address [address] [place] [phone] Care Team Providers Care Chiropractor Assistant Name Role Phone Abigail Em MD Primary Care Provider Noah Hummel [phone] Allergies Allergen (clinical drug ingredient) Drug/Non Drug [...] TABLE T BY MOUTH DAILY AT BEDTIME Oral; Duration: 90 Active Breztri Aerosphere 160-9-4.8 MCG/ACT Inhalation; Duration: 30 Active Flecainide Acetate 100 MG Oral; Duration: 90 Active Xarelto 20 MG Oral; Duration: 30 Active Nebulizer - as directed 12/15/2022 Activ e Montelukast Sodium 10 MG TAKE 1 TABLET B Y MOUTH EVERY DAY AT BEDTIME Oral; Duration: 30 Active Omeprazole 40 MG 1 Oral [...] Problem Status W/U Status Risk Notes Problem Screening for malignant neoplasm of colon (650419694) Encounter for screening for malignant neoplasm of colon (Z12.11) Active confirmed Problem History of adenomatous polyp of colon (114686073) History of adenomatous polyp of colon (Z86.010) Active confirmed Problem Nausea and vomiting (23366230) Nausea with vomiting, unspecified (R11.2) Active confirmed Problem Gastroesophageal reflux disease without esophagitis (179594889) Gastroesophageal reflux disease without esophagitis (K21.9) Active confirmed Problem Dysphagia (84913186) Dysphagia, unspecified type (R13.10) Active confirmed Problem Acute diarrhea (017643061) Acute diarrhea (R19.7) Active confirmed Plan Of [...] MEDICARE OF [place] [address] [facility] [place] [address] [id number] SHAYLA VJ Self - patient is the insured MEDEX ATTN CLAIMS [address] [place] [phone] [id number] 2 VJ MCGUIRE Self - patient is [...] ? 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 during the day; going for a sleep study as of the 11/2019 OV to check for sleep apnea Pneumonia in 09/2015--at [facility] Hypertension Grand mal seizure 02/2020 at [facility] Atrial fibrillation with a l oop recorder [...]
--- OUTSIDE RECORDS SUMMARY | 2025-04-16 16:56 | XMS_ITS | Encounter Summary ---
Author Organization [facility] Address [address] [facility] [address] [place] [address] Phone Care Team Providers Care French Translator Name Role Phone Giovanna Garcia NP Primary Care Provider [phone] Geronimo Beltran MD Unavailable [phone] Emely Barnes RN Unavailable [phone] Unknown, Unknown Primary Care Provider Hayley Couch MD Primary Care Provider Encounter Details Date Type Department Care Team (Late st Contact Info) Description 03/13/2020 Procedure Pass [facility] [address] [place] [address] Social History Tobacco Use Types Packs/Day Years [...] 1:40 PM EST Office Visit [facility] [place] [address] Efrain Melgar DO [address] [place] [address] [email or web address] documented as of this encounter Visit Diagnoses [...] documented as of this encounter Care Teams French Translator Relationship Specialty Start Date End Date Giovanna Garcia NP [email or web address] PCP - General Family Medicine 11/15/17 08/22/23 Unknown, Unknown, PCP - General 08/23/23 03/07/24 Hayley Ni MD [address] [place] [address] PCP - General Internal Medicine 03/08/24 Geronimo Beltran MD [address] [place] [address] [email or web address] Insurance Assigned Provider 09/19/20 06/17/23 Emely Barnes, ABE [address] [place] [phone] [email or web address] [facility] Relationship Consultant 07/27/21 08/10/21 documented as of this encounter Additional Source Comments The information contained in this document represents components of the legal health record. It is not the complete legal health record.[facility]
--- OUTSIDE RECORDS SUMMARY | 2025-04-16 16:56 | XMS_ITS | Encounter Summary ---
Author Organization [facility] Address [address] [place] [address] Phone Care Team Providers Care Sanding Machine Operator Or Tender Name Role Phone Giovanna Garcia ELECTRICAL ENGINEERING TEACHER Primary Care Provider [phone] Geronimo Beltran MD Unavailable [phone] Emely Barnes RN Unavailable [phone] Unknown, Unknown Primary Care Provider Hayley Couch MD Primary Care Provider Encounter Details Date Type Department Care Team (Late st Contact Info) Description 02/16/2021 Ancillary Orders [facility] [address] [facility] 3rd Floor, [address] [place] [address] Patrice Quintero MD [address] [place] [phone] [email or web address] Social History Tobacco Use Types Packs/Day [...] PM EST Office Visit [facility] [address] [place] [address] [place] [address] [email or web address] documented as of this encounter Visit Diagnoses [...] documented as of this encounter Care Teams Sanding Machine Operator Or Tender Relationship Specialty Start Date End Date Giovanna Garcia NP PCP - General Family Medicine 11/15/17 08/22/23 Unknown, Unknown, MD PCP - General 08/23/23 03/07/24 Hayley Ni MD [facility] [address] [place] PCP - General Internal Medicine 03/08/24 Geronimo Beltran MD [address] [place] [address] [email or web address] Insurance Assigned Provider 09/19/20 06/17/23 Emely Barnes, RN [address] [place] [phone] [email or web address] [employer] [facility] Cash Register Balancer 07/27/21 08/10/21 documented as of this encounter Additional Source Comments The information contained in this document represents components of the legal health record. It is not the complete legal health record.[facility]
--- OUTSIDE RECORDS SUMMARY | 2025-04-16 16:56 | XMS_ITS | Encounter Summary ---
Author Organization [facility] Address [address] [facility] [address] [place] [address] Phone Care Team Providers Care Stone Grader Name Role Phone Giovanna Garcia NP Primary Care Provider [phone] Geronimo Beltran MD Unavailable [phone] Emely Barnes RN Unavailable [phone] Unknown, Unknown Primary Care Provider Hayley Couch MD Primary Care Provider Encounter Details Date Type Department Care Team (Late st Contact Info) Description 03/10/2020 Procedure Pass [facility], Ct Scan - [address] [address] Social History Tobacco Use Types Packs/Day Years [...] 1:40 PM EST Office Visit [facility] [place] [address] Efrain Melgar DO [address] [place] [address] [email or web address] documented as of this encounter Visit Diagnoses [...] documented as of this encounter Care Teams Stone Grader Relationship Specialty Start Date End Date Giovanna Garcia NP [email or web address] PCP - General Family Medicine 11/15/17 08/22/23 Unknown, Unknown, MD PCP - General 08/23/23 03/07/24 Hayley Ni MD [facility] [place] [address] PCP - General Internal Medicine 03/08/24 Geronimo Beltran MD [address] [place] [address] [email or web address] Insurance Assigned Provider 09/19/20 06/17/23 Emely Barnes, ABE [address] [place] [address] [email or web address] PHCM Electric Cutter Operator 07/27/21 08/10/21 documented as of this encounter Additional Source Comments The information contained in this document represents components of the legal health record. It is not the complete legal health record.[facility]
--- OUTSIDE RECORDS SUMMARY | 2025-04-16 16:56 | XMS_ITS | Encounter Summary ---
Author Organization [facility] Address [address] [facility] [address] [place] [address] Phone Care Team Providers Care Forest Worker Name Role Phone Giovanna Garcia NP Primary Care Provider [phone] Geronimo Beltran MD Unavailable [phone] Emely Barnes RN Unavailable [phone] Unknown, Unknown Primary Care Provider Hayley Couch MD Primary Care Provider Encounter Details Date Type Department Care Team (Late Contact Info) Description 03/20/2019 Ancillary Orders [facility] [address] [place], [place] [id number] System, Provider Not In, [place] [address] Social History Tobacco Use Types Packs/Day Years [...] 1:40 PM EST Office Visit [facility] [address] [place] [address] [place] [address] Efrain Melgar DO [address] [place] [address] [email or web address] documented as of this encounter Results * [...] documented as of this encounter Care Teams Forest Worker Relationship Specialty Start Date End Date Giovanna Garcia NP [email or web address] PCP - General Family Medicine 11/15/17 08/22/23 Unknown, Daxa, MD PCP - General 08/23/23 03/07/24 Hayley Ni MD [address] [place] [address] [place] [address] PCP - General Internal Medicine 03/08/24 Geronimo Beltran MD [address] [place] [address] [email or web address] Insurance Assigned Provider 09/19/20 06/17/23 Emely Barnes, RN [address] [place] [address] [email or web address] PHCM Continuous Process Rotary Drum Tanner 07/27/21 08/10/21 documented as of this encounter Additional Source Comments The information contained in this document represents components of the legal health record. It is not the complete legal health record.[facility]
== END 2025-04-16 14:43 | disposition home or self-care (01) ==
LOC: HO.HUSH 13:50
PROVIDERS: PCP Internal Medicine; Visit Provider Urology
DX: R39.15 Urgency of urination (principal); N39.0 Urinary tract infection, site not specified; N30.20 Other chronic cystitis without hematuria; N32.89 Other specified disorders of bladder; N36.8 Other specified disorders of urethra; Z13.9 Encounter for screening, unspecified
CPT/HCPCS: 99214

== ENCOUNTER → 2025-04-16 13:49 | Outpatient (BNVA) | payer MEDICARE, SELFPAY | PROVIDERS: PCP Internal Medicine; Visit Provider Urology | DX: R39.15 Urgency of urination (principal); N32.81 Overactive bladder; N36.8 Other specified disorders of urethra; Z87.891 Personal history of nicotine dependence; N39.0 Urinary tract infection, site not specified | CPT/HCPCS: 51798; 81003; 99212 ==

== ENCOUNTER 2025-04-21 09:04 | Outpatient (AMB) | payer MEDICARE, SELFPAY ==
[2025-04-21 09:11] VITALS: BP 130/62; PULSE 69; RESP 17; TEMP 36.6; O2SAT 92; BMI 23.9
--- NOTE | 2025-04-21 09:11 | A.OFFPC_ITS ---
Vital Signs 04/21/25 09:11 Height 5 ft 6 in Weight 148 lb BMI 23.9 BP 130/62 Blood Pressure Location Lt brachial Position Sitting Respiration 17 Pulse 69 Pulse Source Pulse Oximeter Temp 97.8 F Temp Source Oral Pulse Oximetry (%) 92 Oxygen Delivery Method Room Air Intake Visit Reasons: The IMO content you are accessing is 32 months old. To get updated IMO content, please contact your IT Dept/Help Desk requesting the latest release. IT Dept/Help Desk- Please refer to our FAQ page ([email or web address]) or contact IMO Customer Support at [email or web address] Intake Note: Pt is here today c/o resp. concerns coughing Supervisor Type Photography Required: No Allergies bupropion (From Wellbutrin) Allergy (Verified 04/27/25 00:44) Chest Pain ciprofloxacin Allergy (Verified 04/27/25 00:44) Chest Pain IV/IM prednisone Allergy (Uncoded 04/27/25 00:44) Seizure Medication List - Last Reconciled 04/21/25 by Hayley Ni MD albuterol sulfate 90 mcg/actuation 2 puffs inhalation Q4H PRN calcium carbonate-vitamin D3 600 mg-20 mcg (800 unit) (Caltrate with Vitamin D3) 1 tab PO DAILY diltiazem HCl ER 240 mg PO DAILY ergocalciferol (vitamin D2) 1,250 mcg PO QWEEK estradiol 0.01%(0.1mg/gram) (Estrace) use pea-sized amount to fingertip and apply vaginally at bedtime daily; flecainide 100 mg PO Q12H zlmdrunsnbi-qopgpqama-wuehdvtm 200-62.5-25 mcg (Trelegy Ellipta) 1 inh inhalation DAILY 30 days lamotrigine 100 mg PO BID levalbuterol HCl 1.25 mg (3 mL) inhalation BID 30 days methenamine hippurate 1 g PO BID nebulizers As directed omeprazole 40 mg PO BID Oxygen Home Use As directed rivaroxaban (Xarelto) 20 mg PO QPM sodium chloride 3% 4 mL inhalation BID 30 days Tobacco use date assessed: 04/21/25 Fall risk assessment: No Falls in past year Last assessed Fall Risk: 04/21/25 Dental Screening Dental Screen Date: 04/21/25 Did you have a dental visit in the last 12 months?: Yes Did you have a dental problem in the last 6 months where you did not have access to dental care?: No Was dental information given to patient?: Patient has dentist HPI HPI Comments History of Present Illness Details The patient is a 70-year-old female presenting for evaluation of an acute cough and management of multiple chronic conditions. The patient has a history of COPD and manages her condition with a Trelegy inhaler once daily, a levalbuterol nebulizer, and a saline nebulizer to loosen secretions. She uses supplemental oxygen at 2.5 liters via nasal cannula at night and carries portable oxygen due to exertional desaturation, with her O2 saturation dropping to as low as 87%. She denies any history of obstructive sleep apnea or use of a CPAP machine. For the past 3-4 days, the patient has experienced a cough, which is sometimes productive, and coincided with a low-grade fever. She reports exposure to sick family members in her household, including two individuals diagnosed with walking pneumonia. The patient's respiratory history is significant for lung cancer, which was discovered after a CT scan was ordered to investigate lung nodules. She under went a right upper lobe resection in 2020 and is now considered cured by her surgeon, with no ongoing oncology follow-up, but is monitored by her senior net web developer, Dr. Redman. Musculoskeletally, the patient was diagnosed with a left frozen shoulder, confirmed by an x-ray that showed no arthritis, and is currently in physical therapy. Since beginning therapy about a week ago, she has developed new, severe right shoulder and neck pain that radiates to the back of her head, wakes her from sleep, and is more severe than her left shoulder pain. She has history of recurrent UTIs over the last year, leading to a diagnosis of chronic cystitis. A recent cystoscopy showed a thickened bladder and thin urethra, with no suspicious lesions, and she has been free of UTIs since the procedure. Additional chronic issues include dysphagia from esophageal spasms, for which she has a pending referral to a cross cut saw operator. She has a history of precancerous polyps and undergoes screening with Cologuard, as a colonoscopy is contraindicated due to hypoxia risk with sedation. She denies any blood in her stool or changes in bowel habits and is also being treated for osteoporosis. 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 She also notes progressive balance issues, which she attributes to her age and breathing difficulties. [facility] Medical History (Updated 04/21/25 @ 09:52 by Hayley Ni MD) Recurrent urinary tract infection History of lung cancer Dyslipidemia History of adenomatous polyp of colon Hx of TIA (transient ischemic attack) and stroke History of seizure disorder Achalasia of esophagus Osteoporosis HTN (hypertension) Asthma-COPD overlap syndrome GERD (gastroesophageal reflux disease) Surgical History S/P cardiac catheterization S/P partial lobectomy of lung H/O wrist surgery History of cholecystectomy Family History Mother Small cell lung cancer Father Stomach cancer Brother Diabetes Throat cancer Social History Household Members: Spouse and Children Housing: House Do you presently have visiting nurse or other home services: No Alcohol intake: current Alcohol intake frequency: does not drink Patient Tobacco Use Status: Former Tobacco user Years Smoked: 30 +/- e-Cigarette/Vaping Use: Never Used Substance Use Type: Marijuana Advance Directives Date on File: 04/21/22 service: No Current occupational status: retired Cognitive needs: No Hearing needs: No Vision needs: Yes Questionnaire PHQ-9 Over the last 2 weeks, how often have you been bothered by any of the following problems? 1. Little interest or pleasure in doing things: not at all 2. Feeling down, depressed, or hopeless: not at all 3. Trouble falling or staying asleep, or sleeping too much: several days 4. Feeling tired or having little energy: more than half the days 5. Poor appetite or overeating: not at all 6. Feeling bad about yourself - or that you are a failure or have let yourself or your family down: not at all 7. Trouble concentrating on things, such as reading the newspaper or watching television: more than half the days 8. Moving or speaking so slowly that other people could have noticed. Or the opposite - being so fidgety or restless that you have been moving around a lot more than usual: more than half the days 9. Thoughts that you would be better off or of hurting yourself in some way: not at all Total score: 7 Depression Screening Interpretation: Negative Depression Screening Done: Yes Source: Developed by Drs. Noah Elizabeth, Samia Herzog, Salbador Donovan and colleagues, with an educational sonal from [employer] services. Thrive Questionnaire Date Thrive assessed: 10/22/24 I am a: Patient What is your living situation today?: I have a steady place to live Within the past 12 months, did the food you bought not last and you didn't have the money to get more?: Never true Within the past 12 months, did you worry whether your food would run out before you got money to buy more?: Never true Do you have trouble paying for medicines?: No Do you have trouble getting transportation to medical appointments?: No Do you have trouble paying your heating and electricity bill?: No Do you have trouble taking care of your child, family member or friend?: No Do you have trouble with day-to-day activities such as bathing, preparing meals, shopping, managing finances, etc.?: I choose not to answer this question Are you currently unemployed and looking for a job?: No Are you interested in more education?: No Please select the resources that you would like help with: None Currently or been in a relationship where the following occur: No concerns reported THRIVE Score: 0 AUDIT C Alcohol Use Questionnaire (AUDIT-C) 1. How often do you have a drink containing alcohol?: Never Total Score: 0 KT-7 AMB Questionnaire KT-7 Date KT - 7 assessed: 10/26/23 Feeling nervous, anxious, or on edge: 0 = Not at all Not being able to stop or control worryin = Not at all Worrying too much about different things: 0 = Not at all Trouble relaxin = Not at all Being so restless that it is hard to sit still: 0 = Not at all Becoming easily annoyed or irritable: 0 = Not at all Feeling afraid as if something awful might happen: 0 = Not at all Total KT-7 score (0-4 normal; 5-9 mild; 10-14 moderate; 15-21 severe): 0 Source: Developed by Drs. Noah Elizabeth, Samia Herzog, Salbador Donovan and colleagues, with an educational sonal from [employer] services. KT-7 Assessment Billing KT-7 Assessment Tool: KT-7 Assessment 07697 Review of Systems Const All systems reviewed & are unremarkable except as noted in HPI and below Physical exam (Primary Care) Vital Signs: Last Vital Signs Temp 97.8 F 04/21/25 09:11 Pulse 69 04/21/25 09:11 Resp 17 04/21/25 09:11 BP 130/62 04/21/25 09:11 Pulse Ox 92 04/21/25 09:11 Oxygen Delivery Method Room Air 04/21/25 09:11 BMI result Body Mass Index 23.9 Tobacco/Smoking Status: Tobacco use Status Tobacco use date assessed 04/21/25 04/21/25 09:17 Patient Tobacco Use Status Former Tobacco user 04/21/25 09:17 Tobacco use type 08/15/24 11:40 e-Cigarette/Vaping Use Never Used 04/21/25 09:17 PHQ-9: PHQ-9 Score PHQ-9: Total score 7 04/21/25 10:01 Depression Screening Interpretation: Negative Thrive Assessment: Date of Thrive Assessment Date Thrive assessed 10/22/24 04/21/25 09:17 Currently or been in a relationship where the following occur: No concerns reported Const General: comfortable, no acute distress and alert Orientation/consciousness: patient oriented x3 Neck Neck: Yes full ROM, Yes no lymphadenopathy and Yes supple Chest Other: nontender nodule at 10:30 position right breast Cardio Rate: regular rate Rhythm: regular rhythm Heart sounds: S2 normal heart sound present Skin General skin exam: no rashes or lesions noted Neuro General: patient oriented x3 Extrem Other: Limited active range of motion of the left shoulder noted. Palpation elicits pain in the right neck and shoulder area. Coding Level of Care Code Est Pt Level 4 (76455) Complex EM visit Add On G2211 Diagnoses Cough in adult R05.9 Asthma-COPD overlap syndrome J44.9 Acute pain of right shoulder M25.511 Chronicity: acute Chronic cystitis N30.20 Additional Codes KT-7 Assessment Billing - KT-7 Assessment Tool: KT-7 Assessment 99681 ([id number]) Assessment & Plan Assessment & Plan (1) Cough in adult: Code(s): R05.9 - Cough, unspecified Plan: The patient is a 70-year-old female with COPD and a history of lung cancer, presenting with a 3-4 day history of cough, recent fever, and known sick contacts. Given her comorbidities, it is important to rule out pneumonia, though her lungs are clear on exam. The differential includes viral URI, influenza, RSV, or an acute exacerbation of COPD. * Plan: A chest X-ray and a CBC will be ordered. Nasal swabs for COVID-19, influenza, and RSV will be collected. She was advised to increase levalbuterol nebulizer treatments to twice daily and use saline as needed. No antibiotics will be prescribed at this time pending test results. She was advised to delay her flu and RSV vaccinations until the cough resolves. (2) Asthma-COPD overlap syndrome: Code(s): J44.9 - Chronic obstructive pulmonary disease, unspecified Category: Medical Plan: patient's condition is managed with Trelegy and nocturnal oxygen. She continues to experience exertional desaturation. * Plan: Continue current treatment regimen, including Trelegy, nocturnal oxygen, and portable oxygen for exertion. She has an upcoming follow-up with her senior net web developer, Dr. Redman. (3) Right shoulder pain: Code(s): M25.511 - Pain in right shoulder Qualifiers: Chronicity: acute Qualified Code(s): M25.511 - Pain in right shoulder Plan: The patient reports new, severe right-sided neck and shoulder pain that began after starting physical therapy for her left frozen shoulder. The pain is constant and debilitating. The etiology is likely musculoskeletal, possibly compensatory strain or aggravation from her PT maneuvers. Recommended the patient contact her rare/endangered species specialist ([facility]) to schedule an earlier appointment for evaluation. Deferred ordering a neck X-ray to avoid redundant imaging. For symptomatic relief, prescribed Tizanidine 4 mg tablets (#10) for muscle spasticity, with instructions to start with half a tablet at bedtime. Also recommended xqpb-zyf-findsyg Salonpas large patches and Tylenol for pain. The patient is undergoing physical therapy for her adhesive capsulitis in the left shoulder (4) Chronic cystitis: Code(s): N30.20 - Other chronic cystitis without hematuria Category: Medical Plan: Followed By Urology Orders: Orders Complete Blood Count Auto Diff 04/21/25 R09.89 - Other specified symptoms and signs involving the circulatory and respiratory systems SARS-CoV2/FLU/RSV 04/21/25 R09.89 - Other specified symptoms and signs involving the circulatory and respiratory systems Medications: New tizanidine 4 mg PO BEDTIME PRN 10 tabs 0RF muscle spasticity
--- OUTSIDE RECORDS SUMMARY | 2025-04-21 09:46 | XMS_ITS | Patient Health Record ---
Author Organization [facility] Address [address] [place] [phone] Care Team Providers Care Hose Turner Name Role Phone Abigail Em MD Primary Care Provider Noah Hummel [phone] Allergies Allergen (clinical drug ingredient) Drug/Non Drug [...] Problem Screening for malignant neoplasm of colon (079389220) Encounter for screening for malignant neoplasm of colon (Z12.11) Active confirmed Problem History of adenomatous polyp of colon (243655420) History of adenomatous polyp of colon (Z86.010) Active confirmed Problem Nausea and vomiting (53303077) Nausea with vomiting, unspecified (R11.2) Active confirmed Problem Gastroesophageal reflux disease without esophagitis (328627250) Gastroesophageal reflux disease without esophagitis (K21.9) Active confirmed Problem Dysphagia (33988812) Dysphagia, unspecified type (R13.10) Active confirmed Problem Acute diarrhea (045212284) Acute diarrhea (R19.7) Active confirmed Plan Of [...] Date MEDICARE OF [place] [address] [facility] [place] [address] [id number] SHAYLA VJ Self - patient is the insured [employer] ATT[employer] CLAIMS [address] [place] [address] [id number] MCGUIRE Self - patient is [...] some sigmoid diverticulosis and internal hemorrhoids Denies [place],CVA,DM,renal disease Hyperlipidemia Anxiety since 08/2011 IBS-EGD with normal duodenal biopsies in 2012 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 during the day; going for a sleep study as of the 11/2019 OV to check for sleep apnea Pneumonia in 09/2015--at [facility] Hypertension Grand mal seizure 02/2020 at [facility] Atrial fibrillation with a l oop [...]
--- OUTSIDE RECORDS SUMMARY | 2025-04-21 09:46 | XMS_ITS | Clinical Summary ---
Author Organization [facility] Address [address] [place] [address] Phone Care Team Providers Care Pulling Unit Operator Name Role Phone Hayley Ni MD [...] mg total) by mouth daily. 3 Active [place] Saline 0.65 % nasal spray 2 DRP [...] Years Used Date Smoking Tobacco: Former Cigarettes 0 Q uit: 06/12/2015 Tobacco Cessation:Counseling Given: Not [...] age to complete this topic Insurance MEDICARE [facility] Care Teams Pulling Unit Operator Relationship Specialty Start Date End Date Hayley Ni MD [address] [place] [address] PCP - General 11/10/23
== END 2025-04-21 10:16 | disposition home or self-care (01) ==
PROVIDERS: PCP Internal Medicine; Visit Provider Internal Medicine
DX: R05.9 Cough, unspecified (principal); J44.9 Chronic obstructive pulmonary disease, unspecified; M25.511 Pain in right shoulder; N30.20 Other chronic cystitis without hematuria

== ENCOUNTER 2025-04-21 09:04 | Outpatient (REF) | payer MEDICARE, SELFPAY ==
--- OUTSIDE RECORDS SUMMARY | 2010-02-28 23:00 | XMS_ITS | Encounter Summary ---
Author Organization [facility] Address [address] [place] [address] Phone Care Team Providers Care Senior Portfolio Analyst Name Role Phone Unavailable Primary Care Provider Unavailabl e Encounter Details Date Type Department Care Team (Late st Contact Info) Description 03/01/2010 Hospital Encounter [facility],Outside Imaging 30 [place], [place] [phone] System, Provider Not In, [facility] [address] [address] Social History Tobacco Use Types Packs/Day Years [...] 1:41 PM EDT Vivi Thomas RN * [place] Suicide Severity Rating Scale (Screener/Recent Self-Report) Question [...] PM EST Office Visit [facility] [address] [address] Efrain Melgar DO 22 [place] [address] [email or web address] documented as of this encounter Procedures Procedure [...] 1:24 AM EST CoV-Risk 03/09/2021 03/09/2021 03/19/2021 1:25 AM EDT CoV-Risk Comment:Per Ambulatory Triage Form [...] It is not the complete legal health record.[facility]
--- OUTSIDE RECORDS SUMMARY | 2012-01-29 23:00 | XMS_ITS | Encounter Summary ---
Author Organization [facility] Address [address] [place] [address] Phone Care Team Providers Care Park Manager Name Role Phone Unavailable Primary Care Provider Unavailabl e Encounter Details Date Type Department Care Team (Late st Contact Info) Description 01/30/2012 Hospital Encounter [facility],Outside Imaging 30 [place], [place] [phone] System, Provider Not In, [facility] [address] [address] Social History Tobacco Use Types Packs/Day Years [...] 1:41 PM EDT Vivi Thomas RN * [place] Suicide Severity Rating Scale (Screener/Recent Self-Report) Question [...] PM EST Office Visit [facility] [address] [place] [address] Efrani Melgar DO 22 [place] [address] [email or web address] documented as of [...] It is not the complete legal health record.[facility]
--- NOTE | ~2025-04-21 | XR_ITS ---
EXAMINATION: XR CHEST CLINICAL INFORMATION: R05.9 - Cough, unspecified COMPARISON: March 18, 2025. TECHNIQUE: PA and lateral views FINDINGS: Hyperinflated lungs. Pulmonary reticular pattern. Blunting of the right costophrenic angle. Asymmetric volume loss right hemithorax. Cardiomediastinal silhouette size is normal with atelectatic deformity of the right pulmonary hilum. Multilevel spondylosis, axial skeleton. XR/XR chest 2V IMPRESSION: COPD emphysematous type changes and postsurgical treatment changes right perihilar/right middle lung lobe. Probable pleural thickening, right hemithorax. Electronically signed by: Jason Fleming MD 04/21/2025 11:21 AM DAMIAN
--- OUTSIDE RECORDS SUMMARY | 2025-04-21 11:34 | XMS_ITS | Encounter Summary ---
Author Organization [facility] Address [address] [place] [address] Phone Care Team Providers Care Pedodontist Name Role Phone Giovanna Garcia ASSOCIATE SOFTWARE DEVELOPMENT ENGINEER Primary Care Provider [phone] Geronimo Beltran MD Unavailable [phone] Emely Barnes RN Unavailable [phone] Unknown, Unknown Primary Care Provider Hayley Couch MD Primary Care Provider Encounter Details Date Type Department Care Team (Latest Contact Info) Description 03/18/2020 Prep for Surgery [facility] [address] [place] [address] Dr 3rd Floor, [address] [place] [address] Radu Somers MD 22 [place] [address] [email or web address] Syncope and collapse (Primary Dx) Social [...] 1:40 PM EST Office Visit [facility] [address] [place] [address] [place] [address] Efrain Melgar DO 22 [place] [address] [email or web address] documented [...] documented as of this encounter Care Teams Pedodontist Relationship Specialty Start Date End Date Giovanna Garcia NP [email or web address] PCP - General Family Medicine 11/15/17 08/22/23 Unknown, Daxa, PCP - General 08/23/23 03/07/24 Hayley Ni MD [facility] [place] [address] PCP - General Internal Medicine 03/08/24 Geronimo Beltran MD [address] [place] [address] [email or web address] Insurance Assigned Provider 09/19/20 06/17/23 Emely Barnes, ABE [address] [place] [address] [email or web address] PHCM Online Merchandising Specialist 07/27/21 08/10/21 documented as of this encounter Additional Source Comments The information contained in this document represents components of the legal health record. It is not the complete legal health record.[facility]
--- OUTSIDE RECORDS SUMMARY | 2025-04-21 11:34 | XMS_ITS | Encounter Summary ---
Author Organization [facility] Address [address] [place] [address] Phone Care Team Providers Care Signal Constructor Name Role Phone Giovanna Garcia NP Primary Care Provider [phone] Geronimo Beltran MD Unavailable [phone] Unknown, Unknown Primary Care Provider Hayley Couch MD Primary Care Provider Encounter Details Date Type Department Care Team (Late st Contact Info) Description 02/25/2022 Procedure Pass [facility] [address] [place] [address] Social History Tobacco Use Types Packs/Day Years [...] high school, GED, job training, learning the Welsh language, technical skills, or developing parenting skills)? [...] 1:40 PM EST Office Visit [facility] [address] [place] [address] Efrain Melgar DO [address] [place] [address] documented as of this encounter Visit Diagnoses Not on filedocumented in this encounter Additional Health Concerns Infection Onset Date Last Indicated Resolved Time CoV-Risk 03/29/2022 03/29/2022 04/09/2022 1:22 AM EDT Assessment Noted Time PHQ-2 Depression Total Score: 2 08/11/19 9:20 AM EST documented as of this encounter Care Teams Signal Constructor Relationship Specialty Start Date End Date Giovanna Garcia, CAR BODY DESIGNER PCP - General Family Medicine 11/15/17 08/22/23 Unknown, Unknown, MD PCP - General 08/23/23 03/07/24 Hayley Ni MD [address] [place] [address] [place] [address] PCP - General Internal Medicine 03/08/24 Geronimo Beltran MD [address] [place] [address] [email or web address] Insurance Assigned Provider 09/19/20 06/17/23 documented as of this encounter Additional Source Comments The information contained in this document represents components of the legal health record. It is not the complete legal health record.[facility]
--- OUTSIDE RECORDS SUMMARY | 2025-04-21 11:34 | XMS_ITS | Encounter Summary ---
Author Organization [facility] Address [address] [facility] [address] [place] [address] Phone Care Team Providers Care Sole Conditioner Name Role Phone Giovanna Garcia NP Primary Care Provider [phone] Geronimo Beltran MD Unavailable [phone] Emely Barnes RN Unavailable [phone] Unknown, Unknown Primary Care Provider Hayley Couch MD Primary Care Provider Encounter Details Date Type Department Care Team (Late Contact Info) Description 03/20/2020 Procedure Pass [facility] 30 [place] [address] Social History Tobacco Use Types Packs/Day Years [...] PM EST Office Visit [facility] [address] [place] [address] Efrain Melgar DO 22 [place] [address] [email or web address] documented as of this encounter Visit Diagnoses [...] documented as of this encounter Care Teams Sole Conditioner Relationship Specialty Start Date End Date Giovanna Garcia NP [email or web address] PCP - General Family Medicine 11/15/17 08/22/23 Unknown, Unknown, MD PCP - General 08/23/23 03/07/24 Hayley Ni MD [address] [place] [address] PCP - General Internal Medicine 03/08/24 Geronimo Beltran MD [address] [place] [address] [email or web address] Insurance Assigned Provider 09/19/20 06/17/23 Emely Barnes, RN [address] [place] [address] [email or web address] [facility] Employment Coordinator 07/27/21 08/10/21 documented as of this encounter Additional Source Comments The information contained in this document represents components of the legal health record. It is not the complete legal health record.[facility]
--- OUTSIDE RECORDS SUMMARY | 2025-04-21 11:34 | XMS_ITS | Encounter Summary ---
Author Organization [facility] Address [address] [place] [address] Phone Care Team Providers Care Case Liner Name Role Phone Giovanna Garcia NP Primary Care Provider [phone] Geronimo Beltran MD Unavailable [phone] Unknown, Unknown Primary Care Provider Hayley Couch MD Primary Care Provider Encounter Details Date Type Department Care Team (Late st Contact Info) Description 02/09/2022 Transcribe Orders [facility] [place] [address] [place] [address] Jacky Little MD [address] [address] [email or web address] Social History Tobacco Use Types [...] high school, GED, job training, learning the Malagasy language, technical skills, or developing parenting skills)? [...] PM EST Office Visit [facility] [address] [place] [address] Efrain Melgar, DO 22 [place] [address] documented as of this encounter Visit Diagnoses Not on filedocumented in this encounter Additional Health Concerns Infection Onset Date Last Indicated Resolved Time CoV-Risk 03/29/2022 03/29/2022 04/09/2022 1:22 AM EDT Assessment Noted Time PHQ-2 Depression Total Score: 2 08/11/19 9:20 AM EST documented as of this encounter Care Teams Case Liner Relationship Specialty Start Date End Date Giovanna Garcia NP [email or web address] PCP - General Family Medicine 11/15/17 08/22/23 Unknown, Unknown, MD PCP - General 08/23/23 03/07/24 Hayley Ni MD [facility] [place] [address] PCP - General Internal Medicine 03/08/24 Geronimo Beltran MD [address] [place] [address] [email or web address] Insurance Assigned Provider 09/19/20 06/17/23 documented as of this encounter Additional Source Comments The information contained in this document represents components of the legal health record. It is not the complete legal health record.[facility]
--- OUTSIDE RECORDS SUMMARY | 2025-04-21 11:34 | XMS_ITS | Encounter Summary ---
Author Organization [facility] Address [address] [place] [address] Phone Care Team Providers Care Preschool Principal Name Role Phone Giovanna Garcia NP Primary Care Provider [phone] Geronimo Beltran MD Unavailable [phone] Unknown, Unknown Primary Care Provider Hayley Couch MD Primary Care Provider Encounter Details Date Type Department Care Team (Late st Contact Info) Description 11/02/2021 Procedure Pass Non-Invasive Cardiology [address] [place] [place] [id number] Social History Tobacco Use Types Packs/Day Years [...] high school, GED, job training, learning the Norwegian language, technical skills, or developing parenting skills)? [...] PM EST Office Visit [facility] [address] [place] [address] Efrain Melgar DO 22 [place] [address] documented as of this encounter Visit Diagnoses Not on filedocumented in this encounter Additional Health Concerns Infection Onset Date Last Indicated Resolved Time CoV-Risk 03/29/2022 03/29/2022 04/09/2022 1:22 AM EDT Assessment Noted Time PHQ-2 Depression Total Score: 2 08/11/19 22 9:20 AM EST documented as of this encounter Care Teams Preschool Principal Relationship Specialty Start Date End Date Giovanna Garcia, FLIGHT RADIO OPERATOR PCP - General Family Medicine 11/15/17 08/22/23 Unknown, Unknown, MD PCP - General 08/23/23 03/07/24 Hayley Ni MD [facility] [address] PCP - General Internal Medicine 03/08/24 Geronimo Beltran MD [address] [place] [address] [email or web address] Insurance Assigned Provider 09/19/20 06/17/23 documented as of this encounter Additional Source Comments The information contained in this document represents components of the legal health record. It is not the complete legal health record.[facility]
--- OUTSIDE RECORDS SUMMARY | 2025-04-21 11:34 | XMS_ITS | Encounter Summary ---
Author Organization [facility] Address [address] [facility] [address] [place] [address] Phone Care Team Providers Care Meat Stringer Name Role Phone Giovanna Garcia NP Primary Care Provider [phone] Geronimo Beltran MD Unavailable [phone] Emely Barnes RN Unavailable [phone] Unknown, Unknown Primary Care Provider Hayley Couch MD Primary Care Provider Encounter Details Date Type Department Care Team (Late Contact Info) Description 03/20/2020 Procedure Pass [facility] 30 [place] [address] Social History Tobacco Use Types Packs/Day Years [...] PM EST Office Visit [facility] [address] [place] [address] Efrain Melgar DO 22 [place] [address] [email or web address] documented as of this [...] documented as of this encounter Care Teams Meat Stringer Relationship Specialty Start Date End Date Giovanna Garcia NP [email or web address] PCP - General Family Medicine 11/15/17 08/22/23 Unknown, Unknown, MD PCP - General 08/23/23 03/07/24 Hayley Ni MD [address] [facility] [place] [address] PCP - General Internal Medicine 03/08/24 Geronimo Beltran MD [address] [place] [address] [email or web address] Insurance Assigned Provider 09/19/20 06/17/23 Emely Barnes, RN [address] [place] [address] [email or web address] [facility] Poolroom/Poolhall Manager 07/27/21 08/10/21 documented as of this encounter Additional Source Comments The information contained in this document represents components of the legal health record. It is not the complete legal health record.[facility]
--- OUTSIDE RECORDS SUMMARY | 2025-04-21 11:35 | XMS_ITS | Encounter Summary ---
Author Organization [facility] Address [address] [place] [address] Phone Care Team Providers Care Technical Inspector Name Role Phone Giovanna Garcia NP Primary Care Provider [phone] Geronimo Beltran MD Unavailable [phone] Emely Barnes RN Unavailable [phone] Unknown, Unknown Primary Care Provider Hayley Couch MD Primary Care Provider Reason for Referral * MRI/CAT Scan - Closed Specialty Diagnoses / Procedures Referred By Braulio t Referred To Contact Procedures CT Neck Outside (No Interpretation) System, Provider Not In, PhD [address] [address] Referral ID Status Reason Start Date Expiration Date Visits Re quested Visits Authorized [id number] Closed 10/04/2018 10/04/2019 1 1 Encounter Details Date Type Department Care Team (Late st Contact Info) Description 10/04/2018 Ancillary Orders [facility],Outside Imaging 30 [place], [place] [id number] System, Provider Not In, PhD [facility] [address] [address] Social History Tobacco Use Types Packs/Day Years [...] 1:40 PM EST Office Visit [facility] [address] [place] [address] Efrain Melgar DO [address] [place] [address] [email or web address] documented [...] documented as of this encounter Care Teams Technical Inspector Relationship Specialty Start Date End Date Giovanna Garcia NP [email or web address] PCP - General Family Medicine 11/15/17 08/22/23 Unknown, Unknown, MD PCP - General 08/23/23 03/07/24 Hayley Ni MD [address] [place] [address] [place] [address] PCP - General Internal Medicine 03/08/24 Geronimo Beltran MD [address] [place] [address] [email or web address] Insurance Assigned Provider 09/19/20 06/17/23 Emely Barnes, RN [address] [place] [address] [email or web address] PHCM Insurance Billing Clerk 07/27/21 08/10/21 documented as of this encounter Additional Source Comments The information contained in this document represents components of the legal health record. It is not the complete legal health record.[facility]
--- OUTSIDE RECORDS SUMMARY | 2025-04-21 11:35 | XMS_ITS | Encounter Summary ---
Author Organization [facility] Address [address] [place] [address] Phone Care Team Providers Care Accounting Methods Analyst Name Role Phone Giovanna Garcia NP Primary Care Provider [phone] Geronimo Beltran MD Unavailable [phone] Unknown, Unknown Primary Care Provider Hayley Couch MD Primary Care Provider Encounter Details Date Type Department Care Team (Late st Contact Info) Description 02/24/2022 Procedure Pass [facility] 30 [place] [address] Social History Tobacco Use Types Packs/Day Years [...] high school, GED, job training, learning the Hong Konger language, technical skills, or developing parenting skills)? [...] PM EST Office Visit [facility] [address] [place] [address] Efrain Melgar DO [address] [place] [address] documented as of this encounter Visit Diagnoses Not on filedocumented in this encounter Additional Health Concerns Infection Onset Date Last Indicated Resolved Time CoV-Risk 03/29/2022 03/29/2022 04/09/2022 1:22 AM EDT Assessment Noted Time PHQ-2 Depression Total Score: 2 08/11/19 9:20 AM EST documented as of this encounter Care Teams Accounting Methods Analyst Relationship Specialty Start Date End Date Giovanna Garcia, MANAGER PMO PCP - General Family Medicine 11/15/17 08/22/23 Unknown, Unknown, MD PCP - General 08/23/23 03/07/24 Hayley Ni MD [address] [place] [address] [place] [address] PCP - General Internal Medicine 03/08/24 Geronimo Beltran MD [address] [place] [address] [email or web address] Insurance Assigned Provider 09/19/20 06/17/23 documented as of this encounter Additional Source Comments The information contained in this document represents components of the legal health record. It is not the complete legal health record.[facility]
--- OUTSIDE RECORDS SUMMARY | 2025-04-21 11:35 | XMS_ITS | Encounter Summary ---
Author Organization [facility] Address [address] [facility] [address] [place] [address] Phone Care Team Providers Care Loan Supervisor Name Role Phone Giovanna Garcia ASSISTANT PROFESSOR OF PSYCHOLOGY Primary Care Provider [phone] Geronimo Beltran MD Primary Care Provider [phone] Giovanna Garcia ASSISTANT PROFESSOR OF PSYCHOLOGY Primary Care Provider [phone] Geronimo Beltran MD Unavailable [phone] Emely Barnes RN Unavailable [phone] Unknown, Unknown Primary Care Provider Hayley Couch MD Primary Care Provider Encounter Details Date Type Department Care Team (Late st Contact Info) Description 09/05/2017 Procedure Pass [place] Admitting Dept - Virtual Department [address] [place] [address] Social History Tobacco Use Types Packs/Day Years [...] PM EST Office Visit [facility] 22 [place] [address] Efrain Melgar DO 22 [place] [address] documented as of this encounter Visit Diagnoses [...] 1:21 AM EST CoV-Risk 03/29/2022 03/29/2022 04/09/2022 1:2 2 AM EDT documented as of this encounter Care Teams Loan Supervisor Relationship Specialty Start Date End Date Giovanna Garcia NP PCP - General Family Medicine 08/18/17 09/07/17 Geronimo Beltran MD 40 [place] [address] PCP - General Internal Medicine 09/08/17 11/14/17 Giovanna Garcia NP PCP - General Family Medicine 11/15/17 08/22/23 Unknown, Daxa, PCP - General 08/23/23 03/07/24 Hayley Ni MD [facility] [address] PCP - General Internal Medicine 03/08/24 Geronimo Beltran MD 40 [place] [address] Insurance Assigned Provider 09/19/20 06/17/23 Emely Barnes, RN [address] [place] [address] [email or web address] [facility] Legal Referee 07/27/21 08/10/21 documented as of this encounter Additional Source Comments The information contained in this document represents components of the legal health record. It is not the complete legal health record.[facility]
--- OUTSIDE RECORDS SUMMARY | 2025-04-21 11:35 | XMS_ITS | Encounter Summary ---
Author Organization [facility] Address [address] [employer] [facility] [address] [place] [address] Phone Care Team Providers Care Bulk Pallet Builder Name Role Phone Giovanna Garcia MUSHROOM PACKER Primary Care Provider [phone] Geronimo Beltran MD Unavailable [phone] Emely Barnes RN Unavailable [phone] Unknown, Unknown Primary Care Provider Hayley Couch MD Primary Care Provider Encounter Details Date Type Department Care Team (Late st Contact Info) Description 04/21/2020 Transcribe Orders [facility] 30 [place] [address] Ian Anderson MD, [place] [address] [phone] [email or web address] Social History Tobacco Use Types Packs/Day Years [...] PM EST Office Visit [facility] [address] [place] [address] Efrain Melgar DO 22 [place] [address] [email or web address] documented as of this encounter [...] documented as of this encounter Care Teams Bulk Pallet Builder Relationship Specialty Start Date End Date Giovanna Garcia NP PCP - General Family Medicine 11/15/17 08/22/23 Unknown, Daxa, MD PCP - General 08/23/23 03/07/24 Hayley Ni MD [address] [place] [address] PCP - General Internal Medicine 03/08/24 Geronimo Beltran MD [address] [place] [address] Insurance Assigned Provider 09/19/20 06/17/23 Emely Barnes, RN [address] [place] [address] [email or web address] PHCM Physical Therapy Assistant Instructor 07/27/21 08/10/21 documented as of this encounter Additional Source Comments The information contained in this document represents components of the legal health record. It is not the complete legal health record.[facility]
--- OUTSIDE RECORDS SUMMARY | 2025-04-21 11:35 | XMS_ITS | Encounter Summary ---
Author Organization [facility] Address [address] [employer] [facility] [address] [place] [address] Phone Care Team Providers Care Bone Char Kiln Tender Name Role Phone Giovanna Garcia NP Primary Care Provider [phone] Geronimo Beltran MD Unavailable [phone] Emely Barnes RN Unavailable [phone] Unknown, Unknown Primary Care Provider Hayley Couch MD Primary Care Provider Encounter Details Date Type Department Care Team (Late st Contact Info) Description 03/17/2020 Procedure Pass [facility], [address] [address] Social History Tobacco Use Types Packs/Day Years [...] 1:40 PM EST Office Visit [facility] [address] Efrain Melgar DO 22 [place] [address] [email or web address] documented as of this encounter Visit Diagnoses [...] documented as of this encounter Care Teams Bone Char Kiln Tender Relationship Specialty Start Date End Date Giovanna Garcia NP [email or web address] PCP - General Family Medicine 11/15/17 08/22/23 Unknown, Unknown, MD PCP - General 08/23/23 03/07/24 Hayley Ni MD [facility] [place] [address] PCP - General Internal Medicine 03/08/24 Geronimo Beltran MD [address] [place] [address] [email or web address] Insurance Assigned Provider 09/19/20 06/17/23 Emely Barnes, ABE [address] [place] [address] [email or web address] [facility] Chili Pepper Grinder 07/27/21 08/10/21 documented as of this encounter Additional Source Comments The information contained in this document represents components of the legal health record. It is not the complete legal health record.[facility]
--- OUTSIDE RECORDS SUMMARY | 2025-04-21 11:35 | XMS_ITS | Encounter Summary ---
Author Organization [facility] Address [address] [facility] [address] [place] [address] Phone Care Team Providers Care Hydraulic Riveter Name Role Phone Giovanna Garcia NP Primary Care Provider [phone] Geronimo Beltran MD Unavailable [phone] Emely Barnes RN Unavailable [phone] Unknown, Unknown Primary Care Provider Hayley Couch MD Primary Care Provider Encounter Details Date Type Department Care Team (Late st Contact Info) Description 02/01/2021 Procedure Pass [facility], [address] [address] Social History Tobacco Use Types Packs/Day Years [...] 1:40 PM EST Office Visit [facility] [place] [address] Efrain Melgar DO [address] [place] [address] [email or web address] documented as of [...] documented as of this encounter Care Teams Hydraulic Riveter Relationship Specialty Start Date End Date Giovanna Garcia NP [email or web address] PCP - General Family Medicine 11/15/17 08/22/23 Unknown, Unknown, PCP - General 08/23/23 03/07/24 Hayley Ni MD [facility] [address] PCP - General Internal Medicine 03/08/24 Geronimo Beltran MD [address] [place] [address] [email or web address] Insurance Assigned Provider 09/19/20 06/17/23 Emely Barnes, RN [address] [place] [address] [email or web address] PHCM Test Baker 07/27/21 08/10/21 documented as of this encounter Additional Source Comments The information contained in this document represents components of the legal health record. It is not the complete legal health record.[facility]
--- OUTSIDE RECORDS SUMMARY | 2025-04-21 11:35 | XMS_ITS | Encounter Summary ---
Author Organization [facility] Address [address] [facility] [address] [place] [address] Phone Care Team Providers Care Nuclear Technician Name Role Phone Geronimo Beltran MD Primary Care Provider [phone] Giovanna Garcia NP Primary Care Provider [phone] Geronimo Beltran MD Unavailable [phone] Emely Barnes RN Unavailable [phone] Unknown, Unknown Primary Care Provider Hayley Couch MD Primary Care Provider Encounter Details Date Type Department Care Team (Late Contact Info) Description 10/12/2017 Procedure Pass [facility], Ct Scan - [address] [address] Social History Tobacco Use Types Packs/Day Years [...] PM EST Office Visit [facility] [address] [place] [address] Efrain Melgar DO 22 [place] [address] [email or web address] documented as of this encounter Visit Diagnoses [...] documented as of this encounter Care Teams Nuclear Technician Relationship Specialty Start Date End Date eGronimo Beltran MD [address] [place] [address] [email or web address] PCP - General Internal Medicine 09/08/17 11/14/17 Giovanna Garcia NP [address] [place] [address] [email or web address] PCP - General Family Medicine 11/15/17 08/22/23 Unknown, Daxa, PCP - General 08/23/23 03/07/24 Hayley Ni MD [address] [place] [address] [place] [address] PCP - General Internal Medicine 03/08/24 Geronimo Beltran MD [address] [place] [address] [email or web address] Insurance Assigned Provider 09/19/20 06/17/23 Emely Barnes, RN [address] [place] [address] [email or web address] [facility] Occupational Health Specialist 07/27/21 08/10/21 documented as of this encounter Additional Source Comments The information contained in this document represents components of the legal health record. It is not the complete legal health record.[facility]
--- OUTSIDE RECORDS SUMMARY | 2025-04-21 11:35 | XMS_ITS | Encounter Summary ---
Author Organization [facility] Address [address] [facility] [address] [place] [address] Phone Care Team Providers Care Weaver Wire Loom Name Role Phone Giovanna Garcia NP Primary Care Provider [phone] Geronimo Beltran MD Unavailable [phone] Emely Barnes RN Unavailable [phone] Unknown, Unknown Primary Care Provider Hayley Couch MD Primary Care Provider Encounter Details Date Type Department Care Team (Late Contact Info) Description 09/30/2020 Procedure Pass [facility] 30 [place] [address] Social History Tobacco Use Types Packs/Day Years [...] PM EST Office Visit [facility] [address] [place] [address] [place] [address] [email or web address] documented as of this encounter Visit Diagnoses [...] documented as of this encounter Care Teams Weaver Wire Loom Relationship Specialty Start Date End Date Giovanna Garcia NP [email or web address] PCP - General Family Medicine 11/15/17 08/22/23 Unknown, Daxa, PCP - General 08/23/23 03/07/24 Hayley Ni MD [facility] [place] [address] PCP - General Internal Medicine 03/08/24 Geronimo Beltran MD [address] [place] [address] [email or web address] Insurance Assigned Provider 09/19/20 06/17/23 Emely Barnes, ABE [address] [place] [address] PHCM Stonemason Helper 07/27/21 08/10/21 documented as of this encounter Additional Source Comments The information contained in this document represents components of the legal health record. It is not the complete legal health record.[facility]
--- OUTSIDE RECORDS SUMMARY | 2025-04-21 11:35 | XMS_ITS | Encounter Summary ---
Author Organization [facility] Address [address] [facility] [address] [place] [address] Phone Care Team Providers Care Commercial Baking Teacher Name Role Phone Giovanna Garcia NP Primary Care Provider [phone] Geronimo Beltran MD Unavailable [phone] Emely Barnes RN Unavailable [phone] Unknown, Unknown Primary Care Provider Hayley Couch MD Primary Care Provider Encounter Details Date Type Department Care Team (Late st Contact Info) Description 03/27/2020 Procedure Pass [facility], [address] [address] Social History Tobacco Use Types Packs/Day Years [...] 1:40 PM EST Office Visit [facility] [place] [address] Efrain Melgar DO 22 [place] [address] [email or web address] documented as [...] documented as of this encounter Care Teams Commercial Baking Teacher Relationship Specialty Start Date End Date Giovanna Garcia NP [email or web address] PCP - General Family Medicine 11/15/17 08/22/23 Unknown, Unknown, PCP - General 08/23/23 03/07/24 Hayley Ni MD [address] [facility] [place] [address] PCP - General Internal Medicine 03/08/24 Geronimo Beltran MD [address] [place] [address] [email or web address] Insurance Assigned Provider 09/19/20 06/17/23 Emely Barnes, RN [address] [place] [address] [email or web address] [facility] Operations Leader 07/27/21 08/10/21 documented as of this encounter Additional Source Comments The information contained in this document represents components of the legal health record. It is not the complete legal health record.[facility]
--- OUTSIDE RECORDS SUMMARY | 2025-04-21 11:35 | XMS_ITS | Encounter Summary ---
Author Organization [facility] Address [address] [facility] [address] [place] [address] Phone Care Team Providers Care Field Associate Name Role Phone Giovanna Garcia NP Primary Care Provider [phone] Geronimo Beltran MD Unavailable [phone] Emely Barnes RN Unavailable [phone] Unknown, Unknown Primary Care Provider Hayley Couch MD Primary Care Provider Encounter Details Date Type Department Care Team (Late st Contact Info) Description 04/07/2020 Procedure Pass Non-Invasive Cardiology [address] [place] [address] Social History Tobacco Use Types Packs/Day Years [...] PM EST Office Visit [facility] [address] [place] [address] Efrain Melgar DO 22 [place] [address] [email or web address] documented as [...] as of this encounter Care Teams Field Associate Relationship Specialty Start Date End Date Giovanna Garcia NP [email or web address] PCP - General Family Medicine 11/15/17 08/22/23 Unknown, Unknown, PCP - General 08/23/23 03/07/24 Hayley Ni MD [facility] [place] [address] PCP - General Internal Medicine 03/08/24 Geronimo Beltran MD [address] [place] [address] Insurance Assigned Provider 09/19/20 06/17/23 Emely Barnes, RN 10 [place] [address] [facility] Client Account Representative 07/27/21 08/10/21 documented as of this encounter Additional Source Comments The information contained in this document represents components of the legal health record. It is not the complete legal health record.[facility]
--- OUTSIDE RECORDS SUMMARY | 2025-04-21 11:35 | XMS_ITS | Encounter Summary ---
Author Organization [facility] Address [address] [facility] [address] [place] [address] Phone Care Team Providers Care Welfare Project Manager Name Role Phone Giovanna Garcia NP Primary Care Provider [phone] Geronimo Beltran MD Unavailable [phone] Emely Barnes RN Unavailable [phone] Unknown, Unknown Primary Care Provider Hayley Couch MD Primary Care Provider Encounter Details Date Type Department Care Team (Late st Contact Info) Description 04/01/2020 Procedure Pass Non-Invasive Cardiology [address] [place] [address] Social History Tobacco Use Types Packs/Day Years [...] PM EST Office Visit [facility] [address] [place] [address] Efrain Melgar DO 22 [place] [address] [email or web address] documented as [...] documented as of this encounter Care Teams Welfare Project Manager Relationship Specialty Start Date End Date Giovanna Garcia NP [email or web address] PCP - General Family Medicine 11/15/17 08/22/23 Unknown, Unknown, PCP - General 08/23/23 03/07/24 Hayley Ni MD [facility] [address] PCP - General Internal Medicine 03/08/24 Geronimo Beltran MD [address] [place] [address] Insurance Assigned Provider 09/19/20 06/17/23 Emely Barnes, RN 10 [place] [address] [facility] Director Of Flight Operations 07/27/21 08/10/21 documented as of this encounter Additional Source Comments The information contained in this document represents components of the legal health record. It is not the complete legal health record.[facility]
--- OUTSIDE RECORDS SUMMARY | 2025-04-21 11:35 | XMS_ITS | Encounter Summary ---
Author Organization [facility] Address [address] [facility] [address] [place] [address] Phone Care Team Providers Care Protector Plate Attacher Name Role Phone Giovanna Garcia NP Primary Care Provider [phone] Geronimo Beltran MD Unavailable [phone] Emely Barnes RN Unavailable [phone] Unknown, Unknown Primary Care Provider Hayley Couch MD Primary Care Provider Encounter Details Date Type Department Care Team (Late Contact Info) Description 09/24/2020 Procedure Pass [facility] 30 [place] [address] Social History Tobacco Use Types Packs/Day Years [...] PM EST Office Visit [facility] [address] [place] [address] [place] [address] [email or web address] documented as [...] documented as of this encounter Care Teams Protector Plate Attacher Relationship Specialty Start Date End Date Giovanna Garcia NP [email or web address] PCP - General Family Medicine 11/15/17 08/22/23 Unknown, Daxa, PCP - General 08/23/23 03/07/24 Hayley Ni MD [facility] [place] [address] PCP - General Internal Medicine 03/08/24 Geronimo Beltran MD [address] [place] [address] [email or web address] Insurance Assigned Provider 09/19/20 06/17/23 Emely Barnes, ABE [address] [place] [address] PHCM Twisting Department End Finder 07/27/21 08/10/21 documented as of this encounter Additional Source Comments The information contained in this document represents components of the legal health record. It is not the complete legal health record.[facility]
--- OUTSIDE RECORDS SUMMARY | 2025-04-21 11:35 | XMS_ITS | Encounter Summary ---
Author Organization [facility] Address [address] [employer] [facility] [address] [place] [address] Phone Care Team Providers Care Furnace Builder Name Role Phone Giovanna Garcia NP Primary Care Provider [phone] Geronimo Beltran MD Unavailable [phone] Emely Barnes RN Unavailable [phone] Unknown, Unknown Primary Care Provider Hayley Couch MD Primary Care Provider Encounter Details Date Type Department Care Team (Late st Contact Info) Description 09/27/2018 Procedure Pass [facility], [address] [address] Social History Tobacco Use Types Packs/Day Years [...] 1:40 PM EST Office Visit [facility] [address] [place] [address] Efrain Melgar DO [address] [place] [address] [email or web address] documented as of this encounter [...] documented as of this encounter Care Teams Furnace Builder Relationship Specialty Start Date End Date Giovanna Garcia CARTOGRAPHIC DESIGNER [email or web address] PCP - General Family Medicine 11/15/17 08/22/23 Unknown, Daxa, MD PCP - General 08/23/23 03/07/24 Hayley Ni MD [facility] [place] [address] PCP - General Internal Medicine 03/08/24 Geronimo Beltran MD [address] [place] [address] [email or web address] Insurance Assigned Provider 09/19/20 06/17/23 Emely Barnes, RN [address] [place] [address] [email or web address] PHCM Commercial Stripper 07/27/21 08/10/21 documented as of this encounter Additional Source Comments The information contained in this document represents components of the legal health record. It is not the complete legal health record.[facility]
--- OUTSIDE RECORDS SUMMARY | 2025-04-21 11:35 | XMS_ITS | Encounter Summary ---
Author Organization [facility] Address [address] [facility] [address] [place] [address] Phone Care Team Providers Care Tennis Player Name Role Phone Giovanna Garcia NP Primary Care Provider [phone] Geronimo Beltran MD Unavailable [phone] Emely Barnes RN Unavailable [phone] Unknown, Unknown Primary Care Provider Hayley Couch MD Primary Care Provider Encounter Details Date Type Department Care Team (Late st Contact Info) Description 09/10/2018 Procedure Pass [facility], [address] [address] Social History Tobacco Use Types Packs/Day Years [...] PM EST Office Visit [facility] [address] [place] [address] Efrain Melgar DO [address] [place] [address] [email or web address] documented as of this encounter Visit [...] documented as of this encounter Care Teams Tennis Player Relationship Specialty Start Date End Date Giovanna Garcia EXTENSION SERVICE AGENT [email or web address] PCP - General Family Medicine 11/15/17 08/22/23 Unknown, Daxa, MD PCP - General 08/23/23 03/07/24 Hayley Ni MD [facility] [place] [address] PCP - General Internal Medicine 03/08/24 Geronimo Beltran MD [address] [place] [address] [email or web address] Insurance Assigned Provider 09/19/20 06/17/23 Emely Barnes, RN [address] [place] [address] [email or web address] PHCM Staffing Program Manager 07/27/21 08/10/21 documented as of this encounter Additional Source Comments The information contained in this document represents components of the legal health record. It is not the complete legal health record.[facility]
--- OUTSIDE RECORDS SUMMARY | 2025-04-21 11:35 | XMS_ITS | Encounter Summary ---
Author Organization [facility] Address [address] [place] [address] Phone Care Team Providers Care Cushion Filler Name Role Phone Giovanna Garcia NP Primary Care Provider [phone] Geronimo Beltran MD Unavailable [phone] Emely Barnes RN Unavailable [phone] Unknown, Unknown Primary Care Provider Hayley Couch MD Primary Care Provider Encounter Details Date Type Department Care Team (Late st Contact Info) Description 06/02/2020 Procedure Pass [facility] [place], Ct Scan - [address] [address] Social History Tobacco Use Types Packs/Day Years [...] 3:39 PM EST Justino España RN * [place] Suicide Severity Rating Scale (Screener/Recent Self-Report) Question [...] PM EST Office Visit [facility] [address] [place] [address] Efrain Melgar DO [address] [place] [address] documented as of this encounter Visit Diagnoses [...] documented as of this encounter Care Teams Cushion Filler Relationship Specialty Start Date End Date Giovanna Garcia UNIFORM ATTENDANT PCP - General Family Medicine 11/15/17 08/22/23 Unknown, Unknown, MD PCP - General 08/23/23 03/07/24 Hayley Ni MD [address] [place] [address] [place] [address] PCP - General Internal Medicine 03/08/24 Geronimo Beltran MD [address] [place] [address] [email or web address] Insurance Assigned Provider 09/19/20 06/17/23 Emely Barnes, RN [address] [place] [address] [email or web address] PHCM Rate Clerk 07/27/21 08/10/21 documented as of this encounter Additional Source Comments The information contained in this document represents components of the legal health record. It is not the complete legal health record.[facility]
--- OUTSIDE RECORDS SUMMARY | 2025-04-21 11:36 | XMS_ITS | Encounter Summary ---
Author Organization [facility] Address [address] [place] [address] Phone Care Team Providers Care Chef Assistant Name Role Phone Giovanna Garcia NP Primary Care Provider [phone] Geronimo Beltran MD Unavailable [phone] Emely Barnes RN Unavailable [phone] Unknown, Unknown Primary Care Provider Hayley Couch MD Primary Care Provider Encounter Details Date Type Department Care Team (Late st Contact Info) Description 12/26/2019 [facility] [address] Floor, [address] [place] [address] Diana Hopkins, WASH TEST CHECKER [address] [place] [address] [email or web address] Palpitations Social History Tobacco Use Types [...] PM EST Office Visit [facility] [address] [place] [address] Efrain Melgar DO 22 [place] [address] [email or web address] Scheduled Orders Name Type Priority Associated Diagnoses [...] documented as of this encounter Care Teams Chef Assistant Relationship Specialty Start Date End Date Giovanna Garcia, TAX INVESTIGATOR PCP - General Family Medicine 11/15/17 08/22/23 Unknown, Unknown, MD PCP - General 08/23/23 03/07/24 Hayley Ni MD [address] [place] [address] [place] [address] PCP - General Internal Medicine 03/08/24 Geronimo Beltran MD [address] [place] [address] [email or web address] Insurance Assigned Provider 09/19/20 06/17/23 Emely Barnes, RN [address] [place] [address] [email or web address] PHCM Pairing Machine Operator 07/27/21 08/10/21 documented as of this encounter Additional Source Comments The information contained in this document represents components of the legal health record. It is not the complete legal health record.[facility]
--- OUTSIDE RECORDS SUMMARY | 2025-04-21 11:36 | XMS_ITS | Encounter Summary ---
Author Organization [facility] Address [address] [facility] [address] [place] [address] Phone Care Team Providers Care Assembler Utility Buildings Name Role Phone Giovanna Garcia NP Primary Care Provider [phone] Geronimo Beltran MD Unavailable [phone] Emely Barnes RN Unavailable [phone] Unknown, Unknown Primary Care Provider Hayley Couch MD Primary Care Provider Encounter Details Date Type Department Care Team (Late st Contact Info) Description 09/30/2020 Procedure Pass [facility], Ct Scan - [address] [address] Social History Tobacco Use Types Packs/Day Years [...] 1:40 PM EST Office Visit [facility] [place] [address] [place] [address] [email or web address] documented as of this encounter Visit Diagnoses [...] as of this encounter Care Teams Assembler Utility Buildings Relationship Specialty Start Date End Date Giovanna Garcia NP [email or web address] PCP - General Family Medicine 11/15/17 08/22/23 Unknown, Unknown, PCP - General 08/23/23 03/07/24 Hayley Ni MD [facility] [place] [address] PCP - General Internal Medicine 03/08/24 Geronimo Beltran MD [address] [place] [address] [email or web address] Insurance Assigned Provider 09/19/20 06/17/23 Emely Barnes, RN [address] [place] [address] [email or web address] PHCM Clay Machine Operator 07/27/21 08/10/21 documented as of this encounter Additional Source Comments The information contained in this document represents components of the legal health record. It is not the complete legal health record.[facility]
--- OUTSIDE RECORDS SUMMARY | 2025-04-21 11:37 | XMS_ITS | Encounter Summary ---
Author Organization [facility] Address [address] [facility] [address] [place] [address] Phone Care Team Providers Care Rolling Machine Operator Name Role Phone Geronimo Beltran MD Primary Care Provider [phone] Giovanna Garcia NP Primary Care Provider [phone] Geronimo Beltran MD Unavailable [phone] Emely Barnes RN Unavailable [phone] Unknown, Unknown Primary Care Provider Hayley Couch MD Primary Care Provider Encounter Details Date Type Department Care Team (Late st Contact Info) Description 09/08/2017 Procedure Pass [facility], Ct Scan - [address] [address] Social History Tobacco Use Types Packs/Day Years [...] PM EST Office Visit [facility] [address] [place] [address] Efrain Melgar DO [address] [place] [address] [email or web address] documented as of this encounter Visit Diagnoses [...] documented as of this encounter Care Teams Rolling Machine Operator Relationship Specialty Start Date End Date Geronimo Beltran MD [address] [place] [address] [email or web address] PCP - General Internal Medicine 09/08/17 11/14/17 Giovanna Garcia, REAL ESTATE ASSOCIATE [address] [place] [address] [email or web address] PCP - General Family Medicine 11/15/17 08/22/23 Unknown, Daxa, MD PCP - General 08/23/23 03/07/24 Hayley Ni MD [address] [place] [address] [place] [address] PCP - General Internal Medicine 03/08/24 Geronimo Beltran MD [address] [place] [address] [email or web address] Insurance Assigned Provider 09/19/20 06/17/23 Emely Barnse, RN [address] [place] [address] [email or web address] [facility] Body Maker Machine Setter 07/27/21 08/10/21 documented as of this encounter Additional Source Comments The information contained in this document represents components of the legal health record. It is not the complete legal health record.[facility]
--- OUTSIDE RECORDS SUMMARY | 2025-04-21 11:37 | XMS_ITS | Encounter Summary ---
Author Organization [facility] Address [address] [facility] [address] [place] [address] Phone Care Team Providers Care Motorcycle Subassembler Name Role Phone Giovanna Garcia NP Primary Care Provider [phone] Geronimo Beltran MD Unavailable [phone] Emely Barnes RN Unavailable [phone] Unknown, Unknown Primary Care Provider Hayley Couch MD Primary Care Provider Encounter Details Date Type Department Care Team (Late st Contact Info) Description 03/10/2020 Procedure Pass [facility], Ct Scan - [address] [address] Social History Tobacco Use Types Packs/Day Years [...] 1:40 PM EST Office Visit [facility] [address] Efrain Melgar DO 22 [place] [address] [email or web address] documented [...] documented as of this encounter Care Teams Motorcycle Subassembler Relationship Specialty Start Date End Date Giovanna Garcia NP [email or web address] PCP - General Family Medicine 11/15/17 08/22/23 Unknown, Unknown, MD PCP - General 08/23/23 03/07/24 Hayley Ni MD [facility] [place] [address] PCP - General Internal Medicine 03/08/24 Geronimo Beltran MD [address] [place] [address] [email or web address] Insurance Assigned Provider 09/19/20 06/17/23 Emely Barnes, ABE [address] [place] [address] [email or web address] PHCM Vehicle Modification Technician 07/27/21 08/10/21 documented as of this encounter Additional Source Comments The information contained in this document represents components of the legal health record. It is not the complete legal health record.[facility]
--- OUTSIDE RECORDS SUMMARY | 2025-04-21 11:37 | XMS_ITS | Encounter Summary ---
Author Organization [facility] Address [address] [facility] [address] [place] [address] Phone Care Team Providers Care Payroll Administrative Assistant Name Role Phone Giovanna Garcia HOSTESS HOST Primary Care Provider [phone] Geronimo Beltran MD Unavailable [phone] Emely Barnes RN Unavailable [phone] Unknown, Unknown Primary Care Provider Hayley Couch MD Primary Care Provider Encounter Details Date Type Department Care Team (Late st Contact Info) Description 11/16/2020 Ancillary Orders Non-Invasive Cardiology [address] [place] [address] Patrice Quintero MD [address] [place] [address] [email or web address] Syncope and collapse Social History Tobacco [...] 1:40 PM EST Office Visit [facility] [address] [place] [address] RamónEfrain, DO 22 [place] [address] [email or web address] documented as of this encounter Results * (ABNORMAL) DEVICE CHECK: ILR IN-HOME INTERROGATION (11/16/2020 10:16 AM EDT) Narrative Patrice Quintero MD - 11/23/2020 1:10 PM EDT Remote interrogation of implantable loop recorder. Reason for implant: Syncope Pin Cleaner: [employer] Symptoms: 0 Pauses: 0 Bradycardia: 0 Tachycardia: [...] documented as of this encounter Care Teams Payroll Administrative Assistant Relationship Specialty Start Date End Date Giovanna Garcia NP [email or web address] PCP - General Family Medicine 11/15/17 08/22/23 Unknown, Unknown, MD PCP - General 08/23/23 03/07/24 Hayley Ni MD [facility] [place] [address] PCP - General Internal Medicine 03/08/24 Geronimo Beltran MD [address] [place] [address] [email or web address] Insurance Assigned Provider 09/19/20 06/17/23 Emely Barnes, RN [address] [place] [address] [email or web address] [facility] Reservations Sales Agent 07/27/21 08/10/21 documented as of this encounter Additional Source Comments The information contained in this document represents components of the legal health record. It is not the complete legal health record.[facility]
--- OUTSIDE RECORDS SUMMARY | 2025-04-21 11:37 | XMS_ITS | Encounter Summary ---
Author Organization [facility] Address [address] [place] [address] Phone Care Team Providers Care Operations Leader Name Role Phone Giovanna Garcia SALESPERSON JEWELRY Primary Care Provider [phone] Geronimo Beltran MD Unavailable [phone] Emley Barnes RN Unavailable [phone] Unknown, Unknown Primary Care Provider Hayley Couch MD Primary Care Provider Encounter Details Date Type Department Care Team (Late st Contact Info) Description 11/16/2020 Ancillary Orders [facility] [address] [facility] 3rd Floor, [address] [place] [address] Patrice Quintero MD [address] [place] [phone] [email or web address] Social History Tobacco Use Types [...] PM EST Office Visit [facility] [address] [place] [address] [place] [address] documented as of this encounter Visit Diagnoses [...] documented as of this encounter Care Teams Operations Leader Relationship Specialty Start Date End Date Giovanna Garcia NP PCP - General Family Medicine 11/15/17 08/22/23 Unknown, Unknown, MD PCP - General 08/23/23 03/07/24 Hayley Ni MD [facility] [address] [place] PCP - General Internal Medicine 03/08/24 Geronimo Beltran MD [address] [place] [address] [email or web address] Insurance Assigned Provider 09/19/20 06/17/23 Emely Barnes, RN [address] [place] [address] [facility] Fire Extinguisher Repairer Inspector 07/27/21 08/10/21 documented as of this encounter Additional Source Comments The information contained in this document represents components of the legal health record. It is not the complete legal health record.[facility]
--- OUTSIDE RECORDS SUMMARY | 2025-04-21 11:37 | XMS_ITS | Encounter Summary ---
Author Organization [facility] Address [address] [place] [address] Phone Care Team Providers Care It Service Delivery Manager Name Role Phone Giovanna Garcia NP Primary Care Provider [phone] Geronimo Beltran MD Unavailable [phone] Unknown, Unknown Primary Care Provider Hayley Couch MD Primary Care Provider Encounter Details Date Type Department Care Team (Latest Contact Info) Description 11/02/2021 Ancillary Orders Non-Invasive Cardiology [address] [place] [address] Patrice Quintero MD [address] [place] [address] [email or web address] Syncope and collapse; Paroxysmal atrial fibrillation [...] high school, GED, job training, learning the Russian language, technical skills, or developing parenting skills)? [...] PM EST Office Visit [facility] [address] [place] [address] Efrain Melgar DO 22 [place] [address] documented as of this encounter Results * DEVICE CHECK: ILR IN-HOME INTERROGATION (02/02/2022 12:23 PM EDT) Narrative Radu Denise DO - 02/08/2022 9:50 AM EDT Remote interrogation of implantable loop recorder. Reason for implant: Syncope Nutrition Technician: [employer] Symptoms: 0 Pauses: 0 Bradycardia: 0 [...] documented as of this encounter Care Teams It Service Delivery Manager Relationship Specialty Start Date End Date Giovanna Garcia NP PCP - General Family Medicine 11/15/17 08/22/23 Unknown, Unknown, MD PCP - General 08/23/23 03/07/24 Hayley Ni MD [address] [place] [address] [place] [address] PCP - General Internal Medicine 03/08/24 Geronimo Beltran MD [address] [place] [address] [email or web address] Insurance Assigned Provider 09/19/20 06/17/23 documented as of this encounter Additional Source Comments The information contained in this document represents components of the legal health record. It is not the complete legal health record.[facility]
--- OUTSIDE RECORDS SUMMARY | 2025-04-21 11:37 | XMS_ITS | Encounter Summary ---
Author Organization [facility] Address [address] [place] [address] Phone Care Team Providers Care Business Continuity Planner Name Role Phone Giovanna Garcia NP Primary Care Provider [phone] Geronimo Beltran MD Unavailable [phone] Unknown, Unknown Primary Care Provider Hayley Couch MD Primary Care Provider Encounter Details Date Type Department Care Team (Late st Contact Info) Description 11/02/2021 Ancillary Orders [facility] [address] 3rd Floor, [address] [place] [address] Patrice Quintero MD [address] [place] [phone] [email or web address] Social History Tobacco Use Types Packs/Day [...] PM EST Office Visit [facility] 22 [place] [address] Efrain Melgar DO 22 [place] [address] documented as of this encounter Visit Diagnoses Not on filedocumented in this encounter Additional Health Concerns Infection Onset Date Last Indicated Resolved Time CoV-Risk 03/29/2022 03/29/2022 04/09/2022 1:22 AM EDT Assessment Noted Time PHQ-2 Depression Total Score: 2 08/11/19 22 9:20 AM EST documented as of this encounter Care Teams Business Continuity Planner Relationship Specialty Start Date End Date Giovanna Garcia NP [email or web address] PCP - General Family Medicine 11/15/17 08/22/23 Unknown, Unknown, MD PCP - General 08/23/23 03/07/24 Hayley Ni MD [facility] [place] [address] PCP - General Internal Medicine 03/08/24 Geronimo Beltran MD [address] [place] [address] [email or web address] Insurance Assigned Provider 09/19/20 06/17/23 documented as of this encounter Additional Source Comments The information contained in this document represents components of the legal health record. It is not the complete legal health record.[facility]
--- OUTSIDE RECORDS SUMMARY | 2025-04-21 11:37 | XMS_ITS | Encounter Summary ---
Author Organization [facility] Address [address] [place] [address] Phone Care Team Providers Care Behavioral Modification Assistant Name Role Phone Giovanna Garcia NP Primary Care Provider [phone] Geronimo Beltran MD Unavailable [phone] Emely Barnes RN Unavailable [phone] Unknown, Unknown Primary Care Provider Hayley Couch MD Primary Care Provider Encounter Details Date Type Department Care Team (Late st Contact Info) Description 08/10/2021 Procedure Pass [address] [place] [address] Social History Tobacco Use Types Packs/Day Years [...] GED, job training, learning the [place] language, technical skills, or developing parenting skills)? [...] PM EST Office Visit [facility] [address] [place] [address] Efrain Melgar DO [address] [place] [address] documented as of this encounter Visit Diagnoses Not on filedocumented in this encounter Additional Health Concerns Infection Onset Date Last Indicated Resolved Time CoV-Risk 03/29/2022 03/29/2022 04/09/2022 1:22 AM EDT Assessment Noted Time PHQ-2 Depression Total Score: 2 08/11/19 22 9:20 AM EST documented as of this encounter Care Teams Behavioral Modification Assistant Relationship Specialty Start Date End Date Giovanna Garcia, CRIMINAL INVESTIGATIVE AGENT [email or web address] PCP - General Family Medicine 11/15/17 08/22/23 Unknown, Daxa, MD PCP - General 08/23/23 03/07/24 Hayley Ni MD [address] [place] [address] [place] [address] PCP - General Internal Medicine 03/08/24 Geronimo Beltran MD [address] [place] [address] [email or web address] Insurance Assigned Provider 09/19/20 06/17/23 Emely Barnes, RN [address] [place] [address] [email or web address] PHCM Bridge Construction Inspector 07/27/21 08/10/21 documented as of this encounter Additional Source Comments The information contained in this document represents components of the legal health record. It is not the complete legal health record.[facility]
--- OUTSIDE RECORDS SUMMARY | 2025-04-21 11:37 | XMS_ITS | Encounter Summary ---
Author Organization [facility] Address [address] [facility] [address] [place] [address] Phone Care Team Providers Care Bookkeeping Manager Name Role Phone Giovanna Garcia NP Primary Care Provider [phone] Geronimo Beltran MD Unavailable [phone] Emely Barnes RN Unavailable [phone] Unknown, Unknown Primary Care Provider Hayley Couch MD Primary Care Provider Encounter Details Date Type Department Care Team (Late st Contact Info) Description 02/16/2021 Procedure Pass Non-Invasive Cardiology [address] [place] [address] Social History Tobacco Use Types Packs/Day Years [...] PM EST Office Visit [facility] [address] [place] [address] Efrain [place]gar DO 22 [place] [address] [email or web address] documented as [...] documented as of this encounter Care Teams Bookkeeping Manager Relationship Specialty Start Date End Date Giovanna Garcia NP [email or web address] PCP - General Family Medicine 11/15/17 08/22/23 Unknown, Unknown, PCP - General 08/23/23 03/07/24 Hayley Ni MD [facility] [place] [address] PCP - General Internal Medicine 03/08/24 Geronimo Beltran MD [address] [place] [address] [email or web address] Insurance Assigned Provider 09/19/20 06/17/23 Emely Barnes, ABE [address] [place] [address] PHCM Scale Adjuster 07/27/21 08/10/21 documented as of this encounter Additional Source Comments The information contained in this document represents components of the legal health record. It is not the complete legal health record.[facility]
--- OUTSIDE RECORDS SUMMARY | 2025-04-21 11:37 | XMS_ITS | Clinical Summary ---
Author Organization [facility] Address [address] [facility] [address] [place] [address] Phone Care Team Providers Care Ell Teacher Name Role Phone Hayley Ni MD Primary [...] after waking up at a [facility] facility. Vitamin D deficiency 09/23/2024 Assessment [...] intake. I asked her to buy Citracal [id number]-tyh-ixbirfs she should take 2 tablets daily preferably [...] hopefully, they will again be available at [facility]. Syncope 03/10/2020 Assessment & Plan (07/06/2020 1:37 PM EST): No recurrence of any syncope, near syncope, or seizure symptoms recently. We will continue to check her loop recorder routinely. Assessment & Plan (03/11/2020 5:49 PM EDT): Question brought on by atrial fibrillation, versus seizure --Continue child monitor. Implantable loop recorder being planned for [...] seen vaginal bleeding or bleeding with intercourse Channel Opener exam normal Offered estrace topically Psychophysiological insomnia [...] she has elevated risk of stroke her [id number] score of 3 with 3.2% adjusted stroke [...] Team Description 02/06/2025 1:30 PM EDT Infusion [facility] [address] [place] [address] Efrain Melgar DO Age-related osteoporosis without current pathological fracture (Primary Dx) from Last 3 Months Immunizations Immunization Administration Dates Next Due INFLUENZA, SPLIT VIRUS, TRIVALENT PF 03/04/2016, 06/03/2015 INFLUENZA, SPLIT VIRUS, TRIV ALENT W/ PRESERVATIVE IM 03/12/2021,03/12/2019,01/31/2017,03/27,02/16/2011 Influenza High-Dose Quadriva lent Preservative Free IM 04/28/2022,05/31/2021,03/26/2020,03/12(Deferred: Not Available From Wardrobe Specialist) Influenza Quadrivalent Prese rvative Free IM 03/20/2019,03/20/2018 [...] PM EST Office Visit [facility] [address] [place] [address] Efrain Melgar DO [address] [place] [address] [email or web address] Health Maintenance Due Date Last Done Comments [...] patient's age to complete this topic IPV VACCINES Aged Out No longer eligi ble based on patient's age to complete this topic MENINGOCOCCAL VACCINES (ACWY) Aged Out No longer eligible based on patient's age to complete this topic MENINGOCOCCAL VACCINES (B) Aged Out N o longer eligible based on patient's age to complete this topic Medical Devices Implanted Type Area Wardrobe Specialist Device Identifier Shelf Expiration Date Model / Serial / Lot Monitor Cardiac Implantable And Patient Home Monitor [employer] - [id number] Implanted:Qty: 1 on 03/20/2020 by Radu Somers MD at [facility] Implantable Monitor [employer] 11/23/2020 [employer] / [id number] / Procedures Procedure Name Priority Date/Time Associated [...] 8:30 AM EDT) URINE CREATININE 80 mg/dL [facility] CREATININE OUTPUT 720 600 - 1,800 mg/total output [facility] Urine (Urine) 12/23/2024 8:3 0 AM EDT 12/23/2024 8:59 AM EDT Efrain Mlegar DO LAB URINE ORDERABLES Final Resul t Performing Organization Address City/State/[facility] Co de Phone Number [address] [address] * (ABNORMAL) Comprehensive metabolic panel (06/17/2024 8:43 AM EST) SODIUM 139 133 - 146 mmol/L [facility] POTASSIUM 3.4 3.3 - 5.1 mmol/L [facility] CHLORIDE 94(L) 96 - 108 mmol/L [facility] CO2 32 21 - 35 mmol/L [facility] BUN 19 6 - 19 mg/dL [facility] CREATININE 0.70 0.5 - 1.5 mg/dL [facility] GLUCOSE 112(H) 70 - 99 mg/dL [facility] ALBUMIN 4.6 3.9 - 4.8 g/dL [facility] TOTAL PROTEIN 8.0 6.5 - 8.0 g/dL [facility] CALCIUM 10.0 8.4 - 10.3 mg/dL [facility] ALKALINE PHOSPHATASE 132(H) 39 - 117 U/L [facility] TOTAL BILIRUBIN 0.3 0.0 - 1.2 mg/dL [facility] AST 19 0 - 37 U/L [facility] ALT 12 0 - 40 U/L [facility] GLOBULIN 3.4 1 - 4.8 g/dL [facility] EGFR 93 >59 mL/min/1.7 3m2 [facility] Comment:Estimated glomerular filtration rate calculated using the CKD-EPI refit equation. ANION GAP 16 10 - 20 mmol/L [facility] Blood 06/17/2024 8:43 AM EST 06/17/2024 8:50 AM EST us Efrain Melgar DO LAB BLOOD BKR ORDERABLES Final R esult [address] [address] * (ABNORMAL) Lipid panel (06/16/2020 10:50 AM EST) HDL 62 mg/dL [facility] Comment: Interpretation <40 mg/dL: Low HDL cholesterol (major risk factor for CHD) Greater than or equal to 60 mg/dL: High HDL cholesterol ( negative risk factor for CHD) HDL - cholesterol is affected by a number of factors, e.g. smoking, excerise, hormones, sex and age. CHOLESTEROL 250(H) 0 - 240 mg/dL [facility] TRIGLYCERIDES 145 30 - 160 mg/dL [facility] LDL 159(H) 50 - 129 mg/dL [facility] Comment: LDL levels in terms of risk for coronary heart disease: <100 mg/dL: Optimal 100-129 mg/dL: Near or above optimal 130-159 mg/dL: Borderline high 160-189 mg/dL: High >190 mg/dL: Very High CARDIAC RISK RATIO 4.0 3.3 - 4.4 C [facility] Blood 06/16/2020 10:5 0 AM EST 06/16/2020 10:58 AM EST us Giovanna Gacria EMERGENCY DEPARTMENT DIRECTOR LAB BLOOD BKR ORDERABLES Final Result [address] [address] * Pap Smear (12/24/2019 12:00 AM EDT) 12/24/2019 12/26/2019 3:0 7 PM EDT Narrative SEE NARRATIVE - 01/03/2020 2:55 PM EDT [address] [address] Monument Installer: Erna Brown MD AUTOMOTIVE EXHAUST EMISSIONS TECHNICIAN Cytology Report FINAL DIAGNOSIS A. PAP SMEAR [...] 52, 56, 58, 59, 66, 68) by [employer] Onclarity HR-HPV analysis. Clinical correlation is advised. This HPV test was performed at [facility], [address] [place] [address]. This test has been FDA approved for SurePath cervical cytology specimens. The accuracy and precision of this test for all other specimen sources has been verified in the Cytopathology Laboratory of the [facility] and has not been cleared or approved by the U.S. Food and Drug Administration. Clinical correlation is advised. CLINICAL HISTORY Date of Last Menstrual Period: Not Provided Menstrual History: Post Menopausal Other Clinical Conditions: Screening Pap SPECIMEN SOURCE A: PAP SMEAR (SUREPATH) CE Patient Name: ZAYNAB MCGUIRE : 1955 (Age: 64) Sex: F Institution: [facility] Location: [facility] Date of Collection: 12/24/2019 Date of Reported: [...] (12/11/2018 3:41 PM EDT) HCV Negative Negative [facility] Comment: This is a screening test and should be confirmed with molecular testing Blood 12/11/2018 3:41 PM EDT 12/11/2018 3:48 PM EDT Giovanna Garcia NP LAB BLOOD BKR ORDERABLES Final Result [address] [address] * COLONOSCOPY FOR RESULT ENTRY ONLY (12/10/2014) Colonoscopy . Historical Provider HEALTH MAINTENANCE Final Result from Last 3 Months or Most Recently Relevant to Health Maintenance Insurance [place] [id number] [employer] MEDEX SUPPLEMENT MEDICARE PART A & B [employer] SUPPLEMENT MEDICARE PART A & B [employer] MED[employer] SUPPLEMENT MEDICARE PART A & B [employer] MED[employer] SUPPLEMENT MEDICARE PART A & B [employer] MEDEX SUPPLEMENT MEDICARE PART A & B [employer] MEDEX SUPPLEMENT [facility] MEDEX SUPPLEMENT MEDICARE PART A & B [employer] MEDEX SUPPLEMENT MEDICARE PART A & B [employer] MEDEX SUPPLEMENT Advance Directives For more information, please contact: [phone] (9AM - 5PM [facility], Monday-Monday) Documents on File Type Date Recorded Patient Technical Solutions Consultant Expl anation Healthcare Proxy 04/30/2019 9:07 AM [...] Comments Code Discussion Comments: Patient Care Teams Ell Teacher Relationship Specialty Start Date End Date Hayley Ni MD [facility] [place] [address] PCP - General Internal Medicine 03/08/24 Additional Source Comments The information contained in this document represents components of the legal health record. It is not the complete legal health record.[facility]
--- OUTSIDE RECORDS SUMMARY | 2025-04-21 11:37 | XMS_ITS | Encounter Summary ---
Author Organization [facility] Address [address] [facility] [address] [place] [address] Phone Care Team Providers Care Tanbark Laborer Name Role Phone Giovanna Garcia NP Primary Care Provider [phone] Geronimo Beltran MD Unavailable [phone] Emely Barnes RN Unavailable [phone] Unknown, Unknown Primary Care Provider Hayley Couch MD Primary Care Provider Encounter Details Date Type Department Care Team (Late Contact Info) Description 03/20/2019 Ancillary Orders [facility],Outside [facility] [address] [place], [place] [id number] System, Provider Not In, [place] [address] Social History Tobacco Use Types Packs/Day Years [...] PM EST Office Visit [facility] [address] [place] [address] [place] [address] Efrain Melgar DO 22 [place] [address] [email or web address] documented [...] documented as of this encounter Care Teams Tanbark Laborer Relationship Specialty Start Date End Date Giovanna Garcia NP [email or web address] PCP - General Family Medicine 11/15/17 08/22/23 Unknown, Dxaa, MD PCP - General 08/23/23 03/07/24 Hayley Ni MD [address] [place] [address] [place] [address] PCP - General Internal Medicine 03/08/24 Geronimo Beltran MD [address] [place] [address] [email or web address] Insurance Assigned Provider 09/19/20 06/17/23 Emely Barnes, RN [address] [place] [address] [email or web address] PHCM Director Medical Science 07/27/21 08/10/21 documented as of this encounter Additional Source Comments The information contained in this document represents components of the legal health record. It is not the complete legal health record.[facility]
--- OUTSIDE RECORDS SUMMARY | 2025-04-21 11:37 | XMS_ITS | Encounter Summary ---
Author Organization [facility] Address [address] [place] [address] Phone Care Team Providers Care Dietary Internship Name Role Phone Giovanna Garcia NP Primary Care Provider [phone] Geronimo Beltran MD Unavailable [phone] Emely Barnes RN Unavailable [phone] Unknown, Unknown Primary Care Provider Hayley Couch MD Primary Care Provider Encounter Details Date Type Department Care Team (Late st Contact Info) Description 08/10/2021 Procedure Pass [address] [place] [address] Social History Tobacco Use Types Packs/Day Years [...] GED, job training, learning the [place] language, technical skills, or developing parenting skills)? [...] 1:40 PM EST Office Visit [facility] [address] [place] [address] Efrain Melgar DO [address] [place] [address] documented as of this encounter Visit Diagnoses Not on filedocumented in this encounter Additional Health Concerns Infection Onset Date Last Indicated Resolved Time CoV-Risk 03/29/2022 03/29/2022 04/09/2022 1:22 AM EDT Assessment Noted Time PHQ-2 Depression Total Score: 2 08/11/19 22 9:20 AM EST documented as of this encounter Care Teams Dietary Internship Relationship Specialty Start Date End Date Giovanna Garcia, PAIRER SUBSTANDARD [email or web address] PCP - General Family Medicine 11/15/17 08/22/23 Unknown, Daxa, MD PCP - General 08/23/23 03/07/24 Hayley Ni MD [address] [place] [address] [place] [address] PCP - General Internal Medicine 03/08/24 Geronimo Beltran MD [address] [place] [address] [email or web address] Insurance Assigned Provider 09/19/20 06/17/23 Emely Barnes, RN 10 [place] [address] [email or web address] PHCM Bag Patcher 07/27/21 08/10/21 documented as of this encounter Additional Source Comments The information contained in this document represents components of the legal health record. It is not the complete legal health record.[facility]
--- OUTSIDE RECORDS SUMMARY | 2025-04-21 11:37 | XMS_ITS | Encounter Summary ---
Author Organization [facility] Address [address] [employer] [facility] [address] [place] [address] Phone Care Team Providers Care Mint Machine Operator Name Role Phone Giovanna Garcia NP Primary Care Provider [phone] Geronimo Beltran MD Unavailable [phone] Emely Barnes RN Unavailable [phone] Unknown, Unknown Primary Care Provider Hayley Couch MD Primary Care Provider Encounter Details Date Type Department Care Team (Late Contact Info) Description 03/20/2019 Ancillary Orders [facility],Outside [facility] 30 [place], [place] [phone] System, Provider [place] In, [place] [address] Social History Tobacco Use Types Packs/Day Years [...] PM EST Office Visit [facility] [address] [place] [address] [place] [address] Efrain Melgar DO 22 [place] [address] [email or web address] [...] documented as of this encounter Care Teams Mint Machine Operator Relationship Specialty Start Date End Date Giovanna Garcia NP [email or web address] PCP - General Family Medicine 11/15/17 08/22/23 Unknown, Unknown, MD PCP - General 08/23/23 03/07/24 Hayley Ni MD [address] [place] [address] [place] [address] PCP - General Internal Medicine 03/08/24 Geronimo Beltran MD [address] [place] [address] [email or web address] Insurance Assigned Provider 09/19/20 06/17/23 Emely Barnes, RN [address] [place] [address] [email or web address] PHCM Space And Missile Defense Operations 07/27/21 08/10/21 documented as of this encounter Additional Source Comments The information contained in this document represents components of the legal health record. It is not the complete legal health record.[facility]
--- OUTSIDE RECORDS SUMMARY | 2025-04-21 11:37 | XMS_ITS | Encounter Summary ---
Author Organization [facility] Address [address] [facility] [address] [place] [address] Phone Care Team Providers Care Manager Massage Department Name Role Phone Giovanna Garcia NP Primary Care Provider [phone] Geronimo Beltrna MD Unavailable [phone] Emely Barnes RN Unavailable [phone] Unknown, Unknown Primary Care Provider Hayley Couch MD Primary Care Provider Encounter Details Date Type Department Care Team (Late st Contact Info) Description 11/16/2020 Procedure Pass Non-Invasive Cardiology [address] [place] [address] Social History Tobacco Use Types Packs/Day Years [...] PM EST Office Visit [facility] [address] [place] [address] Efrain Melgar DO 22 [place] [address] [email or web address] [...] as of this encounter Care Teams Manager Massage Department Relationship Specialty Start Date End Date Giovanna Garcia NP [email or web address] PCP - General Family Medicine 11/15/17 08/22/23 Unknown, Unknown, PCP - General 08/23/23 03/07/24 Hayley Ni MD [facility] [place] [address] PCP - General Internal Medicine 03/08/24 Geronimo Beltran MD [address] [place] [address] [email or web address] Insurance Assigned Provider 09/19/20 06/17/23 Emely Barnes, ABE [address] [place] [address] PHCM Stringer Up Soldering Machine 07/27/21 08/10/21 documented as of this encounter Additional Source Comments The information contained in this document represents components of the legal health record. It is not the complete legal health record.[facility]
--- OUTSIDE RECORDS SUMMARY | 2025-04-21 11:37 | XMS_ITS | Encounter Summary ---
Author Organization [facility] Address [address] [facility] [address] [place] [address] Phone Care Team Providers Care Paint Roller Covermaker Name Role Phone Giovanna Garcia NP Primary Care Provider [phone] Geronimo Beltran MD Unavailable [phone] Emely Barnes RN Unavailable [phone] Unknown, Unknown Primary Care Provider Hayley Couch MD Primary Care Provider Encounter Details Date Type Department Care Team (Late st Contact Info) Description 03/13/2020 Procedure Pass [facility] 30 [place] [address] Social History Tobacco Use Types Packs/Day Years [...] 1:40 PM EST Office Visit [facility] [place] [address] Efrain Melgar DO 22 [place] [address] [email or web address] documented as [...] documented as of this encounter Care Teams Paint Roller Covermaker Relationship Specialty Start Date End Date Giovanna Garcia NP [email or web address] PCP - General Family Medicine 11/15/17 08/22/23 Unknown, Unknown, PCP - General 08/23/23 03/07/24 Hayley Ni MD [address] [facility] [place] [address] PCP - General Internal Medicine 03/08/24 Geronimo Beltran MD [address] [place] [address] [email or web address] Insurance Assigned Provider 09/19/20 06/17/23 Emely Barnes, ABE [address] [place] [address] [email or web address] Currency Examiner 07/27/21 08/10/21 documented as of this encounter Additional Source Comments The information contained in this document represents components of the legal health record. It is not the complete legal health record.[facility]
--- OUTSIDE RECORDS SUMMARY | 2025-04-21 11:37 | XMS_ITS | Encounter Summary ---
Author Organization [facility] Address [address] [facility] [address] [place] [address] Phone Care Team Providers Care Securities Consultant Name Role Phone Giovanna Garcia NP Primary Care Provider [phone] Geronimo Beltran MD Unavailable [phone] Emely Barnes RN Unavailable [phone] Unknown, Unknown Primary Care Provider Hayley Couch MD Primary Care Provider Reason for Referral * MRI/CAT Scan - Closed Specialty Diagnoses / Procedures Referred By Braulio sheehan Referred To Contact Radiology Diagnoses Memory loss Hx of cancer of lung Procedures MRI Brain Efrain Elliott MD Phone: tel: fax: [email or web address] Referral ID Status Reason Start Date Expiration Date Visits Re quested Visits Authorized [id number] Closed 02/01/2021 02/01/2022 1 1 Encounter Details Date Type Department Care Team (Latest Contact Info) Description 02/01/2021 Transcribe Orders Virtual Department [address] [place] [address] Efrain Elliott MD [address] [place] [address], [address] [place], [place] [phone] [email or web address] Memory loss (Primary Dx); Hx [...] 1:40 PM EST Office Visit [facility] [address] [place] [address] Efrain Melgar DO [address] [place] [address] documented as of this encounter Results * [...] documented as of this encounter Care Teams Securities Consultant Relationship Specialty Start Date End Date Giovanna Garcia NP [email or web address] PCP - General Family Medicine 11/15/17 08/22/23 Unknown, Unknown, MD PCP - General 08/23/23 03/07/24 Hayley Ni MD [facility] [place] [address] PCP - General Internal Medicine 03/08/24 Geronimo Beltran MD [address] [place] [address] [email or web address] Insurance Assigned Provider 09/19/20 06/17/23 Emely Barnes, RN [address] [place] [address] [email or web address] PHCM Energy Operations Vice President 07/27/21 08/10/21 documented as of this encounter Additional Source Comments The information contained in this document represents components of the legal health record. It is not the complete legal health record.[facility]
--- OUTSIDE RECORDS SUMMARY | 2025-04-21 11:37 | XMS_ITS | Encounter Summary ---
Author Organization [facility] Address [address] [place] [address] Phone Care Team Providers Care Grader Tender Name Role Phone Giovanna Garcia PROGRAM DIRECTOR SUBSTANCE ABUSE Primary Care Provider [phone] Geronimo Beltran MD Unavailable [phone] Emely Barnes RN Unavailable [phone] Unknown, Unknown Primary Care Provider Hayley Couch MD Primary Care Provider Encounter Details Date Type Department Care Team (Late st Contact Info) Description 02/16/2021 Ancillary Orders [facility] [address] [facility] 3rd Floor, [address] [place] [address] Patrice Quintero MD [address] [place] [phone] [email or web address] Social History Tobacco Use Types [...] PM EST Office Visit [facility] [address] [place] [address] [place] [address] [email or web address] documented as of this encounter Visit Diagnoses [...] documented as of this encounter Care Teams Grader Tender Relationship Specialty Start Date End Date Giovanna Garcia NP PCP - General Family Medicine 11/15/17 08/22/23 Unknown, Unknown, MD PCP - General 08/23/23 03/07/24 Hayley Ni MD [facility] [address] [place] PCP - General Internal Medicine 03/08/24 Geronimo Beltran MD [address] [place] [address] [email or web address] Insurance Assigned Provider 09/19/20 06/17/23 Emely Barnes, RN [address] [place] [address] [email or web address] [facility] Vp Director Of Creative Strategy 07/27/21 08/10/21 documented as of this encounter Additional Source Comments The information contained in this document represents components of the legal health record. It is not the complete legal health record.[facility]
--- OUTSIDE RECORDS SUMMARY | 2025-04-21 11:37 | XMS_ITS | Encounter Summary ---
Author Organization [facility] Address [address] [facility] [address] [place] [address] Phone Care Team Providers Care Manufacturing Software Engineer Name Role Phone Giovanna Garcia NP Primary Care Provider [phone] Geronimo Beltran MD Unavailable [phone] Emely Barnes RN Unavailable [phone] Unknown, Unknown Primary Care Provider Hayley Couch MD Primary Care Provider Encounter Details Date Type Department Care Team (Late Contact Info) Description 03/20/2019 Ancillary Orders [facility],Outside [facility] 30 [place], [place] [phone] System, Provider [place] In, [place] [address] Social History Tobacco Use Types Packs/Day Years [...] PM EST Office Visit [facility] [address] [place] [address] [place] [address] Efrain Melgar DO 22 [place] [address] [email or web address] documented as of this encounter Results * [...] documented as of this encounter Care Teams Manufacturing Software Engineer Relationship Specialty Start Date End Date Giovanna Garcia NP [email or web address] PCP - General Family Medicine 11/15/17 08/22/23 Unknown, Daxa, MD PCP - General 08/23/23 03/07/24 Hayley Ni MD [address] [place] [address] [place] [address] PCP - General Internal Medicine 03/08/24 Geronimo Beltran MD [address] [place] [address] [email or web address] Insurance Assigned Provider 09/19/20 06/17/23 Emely Barnes, RN [address] [place] [address] [email or web address] PHCM Second Rigger 07/27/21 08/10/21 documented as of this encounter Additional Source Comments The information contained in this document represents components of the legal health record. It is not the complete legal health record.[facility]
--- OUTSIDE RECORDS SUMMARY | 2025-04-21 11:37 | XMS_ITS | Encounter Summary ---
Author Organization [facility] Address [address] [employer] [facility] [address] [place] [address] Phone Care Team Providers Care Hitch Technician Name Role Phone Giovanna Garcia CREDIT UNION MANAGER Primary Care Provider Geronimo Beltran MD Unavailable [phone] Emely Barnes RN Unavailable [phone] Unknown, Unknown Primary Care Provider Hayley Couch MD Primary Care Provider Encounter Details Date Type Department Care Team (Late st Contact Info) Description 02/16/2021 Ancillary Orders Non-Invasive Cardiology [address] [place] [address] Patrice Quintero MD 30 [place] [address] [email or web address] Syncope and collapse Social History Tobacco Use [...] PM EST Office Visit [facility] [address] [place] [address] RamónEfrain, 22 [place] [address] [email or web address] documented as of this encounter Results * DEVICE CHECK: ILR IN-HOME INTERROGATION (02/16/2021 9:45 AM EDT) Narrative Patrice Quintero MD - 02/21/2021 2:58 PM EDT Remote interrogation of implantable loop recorder. Reason for implant: Syncope Tearer: [employer] Symptoms: 0 Pauses: 0 Bradycardia: 0 Tachycardia: [...] documented as of this encounter Care Teams Hitch Technician Relationship Specialty Start Date End Date Giovanna Garcia NP [email or web address] PCP - General Family Medicine 11/15/17 08/22/23 Unknown, Daxa, PCP - General 08/23/23 03/07/24 Hayley Ni MD [address] [place] [address] [place] [address] PCP - General Internal Medicine 03/08/24 Geronimo Beltran MD 40 [place] [address] [email or web address] Insurance Assigned Provider 09/19/20 06/17/23 Emely Barnes, RN [address] [place] [address] [email or web address] [facility] Cook Mayonnaise 07/27/21 08/10/21 documented as of this encounter Additional Source Comments The information contained in this document represents components of the legal health record. It is not the complete legal health record.[facility]
--- OUTSIDE RECORDS SUMMARY | 2025-04-21 11:37 | XMS_ITS | Encounter Summary ---
Author Organization [facility] Address [address] [employer] [facility] [address] [place] [address] Phone Care Team Providers Care Information Assurance Name Role Phone Giovanna Garcia NP Primary Care Provider [phone] Geronimo Beltran MD Unavailable [phone] Emely Barnes RN Unavailable [phone] Unknown, Unknown Primary Care Provider Hayley Couch MD Primary Care Provider Encounter Details Date Type Department Care Team (Late Contact Info) Description 03/20/2019 Ancillary Orders [facility],Outside [facility] 30 [place], [place] [phone] System, Provider Not In, [place] [address] Social History Tobacco Use Types Packs/Day Years [...] 1:40 PM EST Office Visit [facility] [address] [place] [address] [place] [address] Efrain Melgar DO 22 [place] [address] [email or web address] documented as of this encounter Results * [...] documented as of this encounter Care Teams Information Assurance Relationship Specialty Start Date End Date Giovanna Garcia NP [email or web address] PCP - General Family Medicine 11/15/17 08/22/23 Unknown, Daxa, MD PCP - General 08/23/23 03/07/24 Hayley Ni MD [address] [place] [address] [place] [address] PCP - General Internal Medicine 03/08/24 Geronimo Beltran MD [address] [place] [address] [email or web address] Insurance Assigned Provider 09/19/20 06/17/23 Emely Barnes, RN [address] [place] [address] [email or web address] PHCM Rope Maker 07/27/21 08/10/21 documented as of this encounter Additional Source Comments The information contained in this document represents components of the legal health record. It is not the complete legal health record.[facility]
--- OUTSIDE RECORDS SUMMARY | 2025-04-21 11:37 | XMS_ITS | Encounter Summary ---
Author Organization [facility] Address [address] [facility] [address] [place] [address] Phone Care Team Providers Care Extractive Metallurgist Name Role Phone Giovanna Garcia NP Primary Care Provider [phone] Geronimo Beltran MD Unavailable [phone] Emely Barnes RN Unavailable [phone] Unknown, Unknown Primary Care Provider Hayley Couch MD Primary Care Provider Reason for Referral * MRI/CAT Scan - Closed Specialty Diagnoses / Procedures Referred By Braulio sheehan Referred To Contact Radiology Diagnoses White matter disease, unspecified Numbness Procedures MRI Thoracic Spine Efrain Elliott MD Phone: tel: fax: [email or web address] Referral ID Status Reason Start Date Expiration Date Visits Re quested Visits Authorized [id number] Closed 03/17/2020 03/17/2021 1 1 Encounter Details Date Type Department Care Team (Latest Contact Info) Description 03/17/2020 Transcribe Orders Virtual Department [address] [place] [address] Efrain Elliott MD [address] [place] [address], [address] [place], [place] [phone] [email or web address] White matter disease, unspecified (Primary [...] PM EST Office Visit [facility] [address] [place] [address] Efrain Melgar DO [address] [place] [address] [email or web address] documented as of this encounter Results * [...] 3. No disc protrusion or stenosis. POS [id number] Narrative 03/26/2020 9:49 AM EDT TECHNIQUE: 1.5 [...] 3. No disc protrusion or stenosis. POS [id number] Efrain Elliott MD IMG MR XSPECIALTY Final [...] documented as of this encounter Care Teams Extractive Metallurgist Relationship Specialty Start Date End Date Giovanna Garcia NP [email or web address] PCP - General Family Medicine 11/15/17 08/22/23 Unknown, Daxa, PCP - General 08/23/23 03/07/24 Hayley Ni MD [facility] [place] [address] PCP - General Internal Medicine 03/08/24 Geronimo Beltran MD [address] [place] [address] [email or web address] Insurance Assigned Provider 09/19/20 06/17/23 Emely Barnes, ABE [address] [place] [phone] [email or web address] [facility] Supervisor Accounting Clerks 07/27/21 08/10/21 documented as of this encounter Additional Source Comments The information contained in this document represents components of the legal health record. It is not the complete legal health record.[facility]
--- OUTSIDE RECORDS SUMMARY | 2025-04-21 11:37 | XMS_ITS | Encounter Summary ---
Author Organization [facility] Address [address] [place] [phone] Phone Care Team Providers Care Kettle Cook Name Role Phone Giovanna Garcia NP Primary Care Provider [phone] Geronimo Beltran MD Unavailable [phone] Unknown, Unknown Primary Care Provider Hayley Couch MD Primary Care Provider Encounter Details Date Type Department Care Team (Late st Contact Info) Description 11/10/2021 Procedure Pass [facility], Ct Scan - [address] [id number] Social History Tobacco Use Types Packs/Day Years [...] high school, GED, job training, learning the [place] Islander language, technical skills, or developing parenting skills)? [...] PM EST Office Visit [facility] [address] [place] [address] Efrain Melgar DO [address] [place] [address] documented as of this encounter Visit Diagnoses Not on filedocumented in this encounter Additional Health Concerns Infection Onset Date Last Indicated Resolved Time CoV-Risk 03/29/2022 03/29/2022 04/09/2022 1:22 AM EDT Assessment Noted Time PHQ-2 Depression Total Score: 2 08/11/19 9:20 AM EST documented as of this encounter Care Teams Kettle Cook Relationship Specialty Start Date End Date Giovanna Garcia NP [email or web address] PCP - General Family Medicine 11/15/17 08/22/23 Unknown, Unknown, PCP - General 08/23/23 03/07/24 Hayley Ni MD [address] [place] [address] [place] [address] PCP - General Internal Medicine 03/08/24 Geronimo Beltran MD [address] [place] [address] [email or web address] Insurance Assigned Provider 09/19/20 06/17/23 documented as of this encounter Additional Source Comments The information contained in this document represents components of the legal health record. It is not the complete legal health record.[facility]
--- OUTSIDE RECORDS SUMMARY | 2025-04-21 11:37 | XMS_ITS | Encounter Summary ---
Author Organization [facility] Address [address] [facility] [address] [place] [address] Phone Care Team Providers Care Bander Operator Name Role Phone Giovanna Garcia NP Primary Care Provider [phone] Geronimo Beltran MD Unavailable [phone] Emely Barnes RN Unavailable [phone] Unknown, Unknown Primary Care Provider Hayley Couch MD Primary Care Provider Encounter Details Date Type Department Care Team (Late st Contact Info) Description 03/10/2020 Procedure Pass [facility], Ct Scan - [address] [address] Social History Tobacco Use Types Packs/Day Years [...] 1:40 PM EST Office Visit [facility] [address] Efrain Melgar DO [address] [place] [address] [email or web address] documented as [...] documented as of this encounter Care Teams Bander Operator Relationship Specialty Start Date End Date Giovanna Garcia NP [email or web address] PCP - General Family Medicine 11/15/17 08/22/23 Unknown, Unknown, MD PCP - General 08/23/23 03/07/24 Hayley Ni MD [facility] [place] [address] PCP - General Internal Medicine 03/08/24 Geronimo Beltran MD [address] [place] [address] Insurance Assigned Provider 09/19/20 06/17/23 Emely Barnes, ABE [address] [place] [address] [email or web address] PHCM Paint Spraying Machine Operator Helper 07/27/21 08/10/21 documented as of this encounter Additional Source Comments The information contained in this document represents components of the legal health record. It is not the complete legal health record.[facility]
[2025-04-21 13:19] LABS: MANUAL DIFF FLAG NO
[2025-04-21 13:37] LABS: Hematocrit 40.0 % (37.0-47.0); Hemoglobin 13.0 g/dl (12.0-16.0); Imm Gran Abs Auto 0.03 X10*3/uL (0.00-0.03); Imm Gran Pct Auto 0.5 % (0.0-0.4); Lymphocytes Absolute Auto 1.1 X10*3/uL (1.2-4.9); Mean Corpuscular HGB Conc 32.5 g/dl (31.0-35.0); Mean Corpuscular Hemoglobin 29.3 pg (27.0-33.0); Mean Corpuscular Volume 90.1 fL (80.0-98.0); NRBC Abs Auto 0.000 X10*3/uL (0.0-0.012); NRBC Pct Auto 0.0 /100WBC (0.0-0.2); Platelet Count 274 X10*3/uL (160-400); Red Blood Count 4.44 X10*6/uL (4.20-5.50); White Blood Count 6.5 X10*3/uL (4.8-10.8)
[2025-04-21 14:29] LABS: Cholesterol 238 mg/dL (<200); HDL Cholesterol 71 mg/dL (>40); Triglycerides 76 mg/dL (<150)
== END 2025-04-21 09:05 | disposition home or self-care (01) ==
LOC: HO.HMGCX 09:04
PROVIDERS: PCP Internal Medicine; Visit Provider Internal Medicine
DX: M25.511 Pain in right shoulder (principal); N30.20 Other chronic cystitis without hematuria; R05.9 Cough, unspecified; J44.9 Chronic obstructive pulmonary disease, unspecified; Z13.31 Encounter for screening for depression; M81.0 Age-related osteoporosis without current pathological fracture; E55.9 Vitamin D deficiency, unspecified; E78.5 Hyperlipidemia, unspecified; R09.89 Other specified symptoms and signs involving the circulatory and respiratory systems
CPT/HCPCS: 36415; 71046; 80061; 82306; 85025; 96127; 99212

== ENCOUNTER → 2025-04-21 10:04 | Outpatient (BNV) | payer MEDICARE, SELFPAY | PROVIDERS: PCP Internal Medicine; Visit Provider Radiology Diagnostic Radiology | DX: J43.9 Emphysema, unspecified (principal) | CPT/HCPCS: 71046 ==

== ENCOUNTER 2025-04-24 10:21 | Outpatient (AMB) | payer MEDICARE, SELFPAY ==
--- OUTSIDE RECORDS SUMMARY | 2010-02-28 23:00 | XMS_ITS | Encounter Summary ---
Author Organization [facility] Address [email or web address] [place] [address] Phone Care Team Providers Care Architecture Intern Name Role Phone Unavailable Primary Care Provider Unavailabl e Encounter Details Date Type Department Care Team (Late st Contact Info) Description 03/01/2010 Hospital Encounter [facility],Outside Imaging 30 [place], [place] [phone] System, Provider Not In, [facility] [address] [address] Social History Tobacco Use Types Packs/Day Years Used Date Smoking Tobacco: Former Cigarettes 1 45 0 09/06/1970 - 09/07/2015 Smokeless Tobacco: Never Alcohol Use Standard Drinks/Week Comments Yes 2 (1 standard drink = 0.6 oz pure alcohol) 1 shot bourbon at night, 2-3 x week Child or Family Care Answer Date Record ed Do you have problems with on e of the following making it difficult for you to work, study, or receive health care? No 08/10/2021 Education Answer Date Recorded Are you interested in more education? Not on delma e 08/23/2023 Are you concerned about learning? Not on file 08/23/2023 No 08/23/2023 No 08/23/2023 Food Answer Date Recorded Within the past 6 months we worried whether our food would run out before we got money to buy more. Never True 08/10/2021 Within the past 6 months the food we bought just didn't last and we didn't have enough money to get more. Never True Residential Stability Answer Date Recor ded What is your housing situation today? I have young sing 08/10/2021 How many times have you move d in the past 12 months? Zero (I did not move) 08/10/2021 Paying for Meds Answer Date Recorded Do you have trouble paying for medicines? No 08/10/2021 Paying Utility Bills Answer Date Record ed Do you have trouble paying your heating or elect ricity bill? No 08/10/2021 Transportation Answer Date Recorded Has the lack of transportati on kept you from medical appointments or from getting medications? No 08/10/2021 Unemployment Answer Date Recorded Are you currently unemployed or working on a part-time or temporary basis, and looking for work? No 08/10/2021 Digital Access Answer Date Recorded No 11/03/2022 No 11/03/2022 Reliable internet access at home? Not on file 11/03/2022 Device with a working camera? 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 Wish to be (Past 1 Month) No 03/29/2022 1:41 PM EDT Vivi Thomas RN 2. Non-Specific Active Suici jose Thoughts (Past 1 Month) No 03/29/2022 1:41 PM EDT Gauri Thomas RN 6. Suicidal Behavior (Lifetime) No 1:41 PM EDT Vivi Thomas RN documented as of this encounter Plan of Treatment Upcoming Encounters Date Type Department Care Team (Late st Contact Info) Description 07/10/2025 1:40 PM EST Office Visit [facility] [address] [place] [address] Efrain Melgar DO 22 [place] [address] [email or web address] documented as of this encounter Procedures Procedure Name Priority Date/Time Associated Diagnosis Comments BI MAMMOGRAM OUTSIDE (NO INTERPRETATION) Routine 03/01/2010 12:00 AM EDT documented in this encounter Results * Mammogram Outside (No Interpretation) (03/01/2010 12:00 AM EDT) Narrative SYSTEMGENERATED, DOCUMENTATION - 03/20/2019 12:57 PM EDT This study is for PACS storage only and not for interpretation. us Provider Not In System PhD IMG OUTSIDE IMAGING W /OUT INTERPRETATION Final Result documented in this encounter Visit Diagnoses Not on filedocumented in this encounter Additional Health Concerns Infection Onset Date Last Indicated Resolved Time CoV-Risk Comment:COVID-19 test pending 10/08/2019 10/08/2019 10/22/2019 1:25 AM EDT CoV-Risk 11/22/2019 11/22/2019 12/06/2019 1:27 AM EDT CoV-Risk 12/30/2019 12/30/2019 01/13/2020 1:24 AM EDT CoV-Risk 03/05/2020 03/10/2020 03/19/2020 2:56 PM EDT CoV-Exposed Comment:Recent close contact 05/15/2020 05/15/2020 05/29/2020 1:24 AM EST CoV-Risk 03/09/2021 03/09/2021 03/19/2021 1:2 5 AM EDT CoV-Risk Comment:Per Ambulatory Triage Form 05/17/2021 05/19/202105/29 1:24 AM EST CoV-Risk Comment:Per Ambulatory Triage Form 07/01/2021 07/01/202107/01 4:31 PM EST COVID-19 07/01/2021 07/01/2021 07/22/2021 1:21 AM EST CoV-Risk 03/29/2022 03/29/2022 04/09/2022 1:22 AM EDT documented as of this encounter Additional Source Comments The information contained in this document represents components of the legal health record. It is not the complete legal health record.[facility]
--- OUTSIDE RECORDS SUMMARY | 2012-01-29 23:00 | XMS_ITS | Encounter Summary ---
Author Organization [facility] Address [address] [place] [address] Phone Care Team Providers Care Machine Operator Cane Cutter Name Role Phone Unavailable Primary Care Provider Unavailabl e Encounter Details Date Type Department Care Team (Late st Contact Info) Description 01/30/[address] [facility],Outside Imaging 30 [place], [place] [phone] System, Provider Not In, [facility] [address] [address] Social History Tobacco Use Types Packs/Day Years [...] 1:41 PM EDT Vivi Thomas RN * [place] Suicide Severity Rating Scale (Screener/Recent Self-Report) Question [...] PM EST Office Visit [facility] [address] [place] [address] Efrain Melgar DO 22 [place] [address] [email or web address] documented as of this encounter Procedures Procedure [...] It is not the complete legal health record.[facility]
[2025-04-24 10:30] VITALS: BP 148/50; PULSE 82; O2SAT 94; BMI 23.3
--- NOTE | 2025-04-24 10:30 | MHC.OFFVIS ---
Vital Signs 04/24/25 10:30 Height 5 ft 6 in Weight 144 lb 6.444 oz BMI 23.3 BP 148/50 H Blood Pressure Location Lt brachial Position Sitting Pulse 82 Pulse Source Pulse Oximeter Pulse Oximetry (%) 94 Oxygen Delivery Method Room Air Intake Visit Reasons: COPD Fleet Dispatch Manager Required: No Accompanied by: Spouse Allergies bupropion (From Wellbutrin) Allergy (Verified 04/24/25 10:33) Chest Pain ciprofloxacin Allergy (Verified 04/24/25 10:33) Chest Pain IV/IM prednisone Allergy (Uncoded 04/21/25 09:19) Seizure HPI Comments Details: The patient is a 70 year woman with a known history of COPD in addition to lung cancer. Apparently she underwent a screening imaging study demonstrating a right upper lobe pulmonary malignant process. She referred to thoracic surgery where she underwent a right upper lobe lobectomy with curative intent. The patient was indeed confirmed to have cancer and she did not need any chemo or radiation. She did have her serial CT scans every 6 months and now moved over to every year. Back in March 2022 she was admitted to the hospital with palpitations cardiac arrhythmia and atrial fibrillation. During the hospitalization she did have a CTA which was personally by me demonstrating the postsurgical changes in addition to all other subcentimeter pulmonary nodules. in addition to this her CT scan demonstrates evidence of mosaic pattern suggesting of air trapping from her obstructive airway disease. Regards of her COPD the patient was placed on azithromycin which she is has been taking. Although, she is also been taking flecainide which is a concern as far as QT prolongation and severe cardiac arrhythmias. Therefore, the patient is okay stopping the medication at this time. She is using Breztri inhaler which has been affecting beneficial. Does not appear to be activating her atrial fibrillation. In addition to this the patient does have a hiatal hernia. She does sleep elevated and does take a PPI. Currently she is asymptomatic. 05/25/2023 the patient is here for a pulmonary follow-up visit. The patient now is recovering from COVID-19. She does fairly sick. She yet is 2 weeks out. The patient still having some shortness of breath chest tightness and chest congestion. She also feels fatigued. She did not take packs [place]. She had not taken any medications. She has been using her nebulizer and also her respiratory medicines. She does have a history atrial fibrillation. I will switch her DuoNeb over to Xopenex to minimize in the irritability to the heart. The patient also she underwent pulmonary function studies. It was very hard for her to go them. Consistent with her COPD in addition to diffusion impairment. She does have oxygen available. She will benefit from pulmonary rehabilitation. Will consider this when she improves after having COVID. We did review her CT scan of the chest that she had back in 2021. She does appear to have some irregular airways likely just kinking of the airways postoperatively. Although would not be unreasonable to consider bronchoscopy. We will reassess her in the springtime. If she continues to be symptomatic will consider bronchoscopy otherwise will wait for CT scan that will be done sometime in October. [id number] the patient is here for a pulmonary follow-up visit. The patient overall has been doing okay. She does have a follow-up with thoracic surgery this week to follow-up with her CT scan of the chest. Her CT scan did get the report and is reassuring with postoperative changes and stable pulmonary nodules. She continues to have shortness of breath. Does not seem to respond as well to the respiratory inhaler, Breztri. She would like to try Trelegy instead. I will send to the pharmacy and see flu prior approval. The patient also has a rescue medicine that she can use as needed. She complains of the shortness of breath with activity. Moderate severity even with minimal activity. The patient is likely deconditioned. She needs to start pulmonary rehabilitation. She is agreeable at this time start here. Her last PFTs did demonstrate significant COPD. 01/04/2024 the patient is here for a pulmonary follow-up visit. She is having hard time with the breathing. Having chest congestion cough shortness of breath. She has been using her nebulizer with partial improvement. She has been noticing increasing breathlessness moderate severity. The patient denies any fevers or chills. She did recently was placed on Macrobid for UTI and she is also dealing with dental issues. Feels that she has not dental infection. She started to cough more as well and has been having more chest congestion. Her CT scans at now yearly based on her stability of her lung cancer history this is followed by thoracic surgery at [facility]. In addition to that the patient needs additional respiratory medications. Inhalers have not effective. Therefore which is switch over to nebulized therapy. She continues on the Xopenex that she continue continue twice a day. Will go ahead and add a long-acting muscarinic antagonist and also add a inhaled corticosteroid via nebulizer. The patient follow-up in 3 4 months. If the patient is no better she will call for further evaluation. 03/10/2025 the patient is here for a follow-up visit. She has been sick now for about a week and a half. She has been complaining worsening cough chest congestion. Shortness of breath. Moderate severity. He has been using her oxygen a little more. She does follow-up closely with thoracic surgery regarding her history of lung cancer. She does have a CAT scan coming up. We were able to provide her with a nebulizer treatment in the office we will albuterol and also hypertonic saline. We were able to collect a sputum which we sent for culture. In the meantime will start the patient on some antibiotics and prednisone. She will continue with the current respiratory therapy. I will provide her also hypertonic saline for her nebulizer that she can use for CPT and mucus clearance. The patient is no better she is going to have a chest x-ray. Otherwise will follow-up in 1-2 months. 04/24/2025 the patient is here for pulmonary follow-up visit. Overall the patient has been doing okay. She does complain of dyspnea on exertion. Has been using her oxygen more often. She continues on her Trelegy with good response. She also has a nebulizer and hypertonic saline to help with mucus clearance. She continues on the flecainide. The patient also has increased chest tightness and wheezing on exam. She will need additional prednisone. But the try just to give her a small dose with a small low-dose taper to minimize adverse effects. In the meantime the patient will be started on Daliresp 250 mcg dose. She will start slowly and will increase it as tolerated to get her to the therapeutic dose of 500 mcg. she did have a repeat x-ray a week ago. I did personally review her x-ray from week ago and also the 1 a month ago and 1 prior to that. She does have chronic changes but all stable postoperative changes. The patient is scheduled to have a repeat CAT scan with thoracic surgery to follow her lung cancer diagnosis many years. in the meantime she is going to continue to use the oxygen with activity. The patient will go ahead and continue her respiratory therapy and will go ahead and add Daliresp. Also consider Ohtuvayre she can not tolerate the Daliresp. [facility] Medical History (Updated 04/21/25 @ 09:52 by Hayley Ni MD) Recurrent urinary tract infection History of lung cancer Dyslipidemia History of adenomatous polyp of colon Hx of TIA (transient ischemic attack) and stroke History of seizure disorder Achalasia of esophagus Osteoporosis HTN (hypertension) Asthma-COPD overlap syndrome GERD (gastroesophageal reflux disease) Surgical History S/P cardiac catheterization S/P partial lobectomy of lung H/O wrist surgery History of cholecystectomy Family History Mother Small cell lung cancer Father Stomach cancer Brother Diabetes Throat cancer Social History Household Members: Spouse and Children Housing: House Do you presently have visiting nurse or other home services: No Alcohol intake: current Alcohol intake frequency: does not drink Patient Tobacco Use Status: Former Tobacco user Years Smoked: 30 +/- e-Cigarette/Vaping Use: Never Used Substance Use Type: Marijuana Advance Directives Date on File: 04/21/22 service: No Current occupational status: retired Cognitive needs: No Hearing needs: No Vision needs: Yes Review of Systems Const Denies chills, Reports fatigue, Denies fever(s), Denies frequent falls, Denies weakness, Denies weight gain and Denies weight loss Eyes Denies change in vision ENT Denies dizziness and Denies throat swelling Card Denies chest pain, Denies leg edema, Denies lightheadedness, Denies palpitations, Denies dyspnea, Reports dyspnea on exertion, Denies orthopnea and Denies other (loss of consciousness) Resp Reports change in phlegm color, Reports chest congestion, Reports cough, Denies dyspnea, Reports dyspnea on exertion and Reports wheezing GI Denies hematochezia and Denies change in stool character Musc Denies abnormal gait, Denies muscle weakness, Denies numbness, Denies radiating pain into limb and Denies tingling Neuro Denies abnormal gait, Denies dizziness, Denies frequent falls, Denies numbness, Denies tingling and Denies weakness Endo Reports fatigue and Denies palpitations Aller/Immun Denies seasonal rhinorrhea, Denies throat swelling and Reports wheezing Physical Exam Vital Signs: Last Vital Signs Pulse 82 04/24/25 10:30 BP 148/50 H 04/24/25 10:30 Pulse Ox 94 04/24/25 10:30 Oxygen Delivery Method Room Air 04/24/25 10:30 BMI result Body Mass Index 23.3 Const General: cooperative, comfortable and no acute distress Orientation/consciousness: patient oriented x3 Chest Chest palpation & inspection: normal inspection of the chest Resp Effort & Inspection: normal respiratory effort and prolonged expiratory phase Auscultation: wheezes and diminished lung sounds Cardio Rate: regular rate Rhythm: regular rhythm Heart sounds: S1 normal heart sound present and S2 normal heart sound present Neuro General: patient oriented x3 Extrem General: Yes no pedal edema Assessment & Plan Assessment & Plan (1) COPD (chronic obstructive pulmonary disease): Code(s): J44.9 - Chronic obstructive pulmonary disease, unspecified Category: Medical Qualifiers: COPD type: COPD with acute lower respiratory infection Qualified Code(s): J44.0 - Chronic obstructive pulmonary disease with (acute) lower respiratory infection (2) Asthma-COPD overlap syndrome: Code(s): J44.9 - Chronic obstructive pulmonary disease, unspecified Category: Medical (3) Lung cancer: Code(s): C34.90 - Malignant neoplasm of unspecified part of unspecified bronchus or lung Category: Medical Qualifiers: Laterality: unspecified laterality Lung location: unspecified part of lung Qualified Code(s): C34.90 - Malignant neoplasm of unspecified part of unspecified bronchus or lung (4) KRISTEN on CPAP: Code(s): G47.33 - Obstructive sleep apnea (adult) (pediatric) Category: Medical Plan Hypertonic saline nebs continue Trelegy GÓMEZ as needed prednisone taper star Daliresp 250mcg-->500mcg continue Xopenex for nebulizer medicine Serial CT chest as per Thoracic surgery, October 2025 F/U 4-6 months Medications: New prednisone PO daily; Take 2 tabs daily x 15 days, then 1 tab daily x 15 days 45 tabs 0RF 30 days roflumilast (Daliresp) 250 mcg PO DAILY 30 tabs 11RF 30 days J44.9 - Chronic obstructive pulmonary disease, unspecified Refilled levalbuterol HCl 1.25 mg (3 mL) inhalation BID 180 mL 11RF 30 days J44.9 - Chronic obstructive pulmonary disease, unspecified Coding Level of Care Code Est Pt Level 4 (58324) Complex EM visit Add On G2211 Diagnoses Chronic obstructive pulmonary disease with acute lower respiratory infection J44.0 COPD type: COPD with acute lower respiratory infection Asthma-COPD overlap syndrome J44.9 Malignant neoplasm of lung, unspecified laterality, unspecified part of lung C34.90 Laterality: unspecified laterality Lung location: unspecified part of lung KRISTEN on CPAP G47.33 Time Spent (min) 17
--- OUTSIDE RECORDS SUMMARY | 2025-04-24 12:40 | XMS_ITS | Encounter Summary ---
Author Organization [facility] Address [address] [place] [address] Phone Care Team Providers Care Lease Administrator Name Role Phone Giovanna Garcia NP Primary Care Provider [phone] Geronimo Beltran MD Unavailable [phone] Unknown, Unknown Primary Care Provider Hayley Couch MD Primary Care Provider Encounter Details Date Type Department Care Team (Late st Contact Info) Description 02/09/2022 Transcribe Orders [facility] [place] [address] [place] [address] Jacky Little MD [address] [address] [email or web address] Social History Tobacco Use Types Packs/Day [...] high school, GED, job training, learning the Monegasque language, technical skills, or developing parenting skills)? [...] PM EST Office Visit [facility] [address] [place] [address] Efrain Melgar, DO [address] [place] [address] documented as of this encounter Visit Diagnoses Not on filedocumented in this encounter Additional Health Concerns Infection Onset Date Last Indicated Resolved Time CoV-Risk 03/29/2022 03/29/2022 04/09/2022 1:22 AM EDT Assessment Noted Time PHQ-2 Depression Total Score: 2 08/11/19 9:20 AM EST documented as of this encounter Care Teams Lease Administrator Relationship Specialty Start Date End Date Giovanna Garcia NP [email or web address] PCP - General Family Medicine 11/15/17 08/22/23 Unknown, Unknown, MD PCP - General 08/23/23 03/07/24 Hayley Ni MD [facility] [place] [address] PCP - General Internal Medicine 03/08/24 Geronimo Beltran MD [address] [place] [address] [email or web address] Insurance Assigned Provider 09/19/20 06/17/23 documented as of this encounter Additional Source Comments The information contained in this document represents components of the legal health record. It is not the complete legal health record.[facility]
--- OUTSIDE RECORDS SUMMARY | 2025-04-24 12:40 | XMS_ITS | Encounter Summary ---
Author Organization [facility] Address [address] [place] [address] Phone Care Team Providers Care Progress Clerk Name Role Phone Giovanna Garcia NP Primary Care Provider [phone] Geronimo Beltran MD Unavailable [phone] Unknown, Unknown Primary Care Provider Hayley Couch MD Primary Care Provider Encounter Details Date Type Department Care Team (Late st Contact Info) Description 02/25/2022 Procedure Pass [facility] [address] [place] [address] Social History Tobacco Use Types Packs/Day Years [...] high school, GED, job training, learning the Danish language, technical skills, or developing parenting skills)? [...] PM EST Office Visit [facility] [address] [place] [address] Efrain Melgar DO [address] [place] [address] documented as of this encounter Visit Diagnoses Not on filedocumented in this encounter Additional Health Concerns Infection Onset Date Last Indicated Resolved Time CoV-Risk 03/29/2022 03/29/2022 04/09/2022 1:22 AM EDT Assessment Noted Time PHQ-2 Depression Total Score: 2 08/11/19 9:20 AM EST documented as of this encounter Care Teams Progress Clerk Relationship Specialty Start Date End Date Giovanna Garcia, MUSHROOM PICKER PCP - General Family Medicine 11/15/17 08/22/23 Unknown, Unknown, MD PCP - General 08/23/23 03/07/24 Hayley Ni MD [address] [place] [address] [place] [address] PCP - General Internal Medicine 03/08/24 Geronimo Beltran MD [address] [place] [address] [email or web address] Insurance Assigned Provider 09/19/20 06/17/23 documented as of this encounter Additional Source Comments The information contained in this document represents components of the legal health record. It is not the complete legal health record.[facility]
--- OUTSIDE RECORDS SUMMARY | 2025-04-24 12:40 | XMS_ITS | Encounter Summary ---
Author Organization [facility] Address [address] [place] [address] Phone Care Team Providers Care Investment Associate Name Role Phone Giovanna Garcia NP Primary Care Provider [phone] Geronimo Beltran MD Unavailable [phone] Unknown, Unknown Primary Care Provider Hayley Couch MD Primary Care Provider Encounter Details Date Type Department Care Team (Late st Contact Info) Description 11/02/2021 Procedure Pass [facility] [address] [place] [id number] Social History Tobacco Use Types Packs/Day Years [...] high school, GED, job training, learning the Austrian language, technical skills, or developing parenting skills)? [...] PM EST Office Visit [facility] [address] [place] [address] Efrain Melgar DO [address] [place] [address] documented as of this encounter Visit Diagnoses Not on filedocumented in this encounter Additional Health Concerns Infection Onset Date Last Indicated Resolved Time CoV-Risk 03/29/2022 03/29/2022 04/09/2022 1:22 AM EDT Assessment Noted Time PHQ-2 Depression Total Score: 2 08/11/19 22 9:20 AM EST documented as of this encounter Care Teams Investment Associate Relationship Specialty Start Date End Date Giovanna Garcia, SUPERVISOR [employer] PCP - General Family Medicine 11/15/17 08/22/23 Unknown, Unknown, MD PCP - General 08/23/23 03/07/24 Hayley Ni MD [facility] [place] [address] PCP - General Internal Medicine 03/08/24 Geronimo Beltran MD [address] [place] [address] [email or web address] Insurance Assigned Provider 09/19/20 06/17/23 documented as of this encounter Additional Source Comments The information contained in this document represents components of the legal health record. It is not the complete legal health record.[facility]
--- OUTSIDE RECORDS SUMMARY | 2025-04-24 12:40 | XMS_ITS | Encounter Summary ---
Author Organization [facility] Address [address] [employer] [facility] [address] [place] [address] Phone Care Team Providers Care Materials Technician Name Role Phone Giovanna Garcia NP Primary Care Provider [phone] Geronimo Beltran MD Unavailable [phone] Emely Barnes RN Unavailable [phone] Unknown, Unknown Primary Care Provider Hayley Couch MD Primary Care Provider Encounter Details Date Type Department Care Team (Late st Contact Info) Description 03/17/2020 Procedure Pass [facility], [address] [address] Social History Tobacco Use Types Packs/Day Years [...] 1:40 PM EST Office Visit [facility] [place] [address] Efrain Melgar DO 22 [place] [address] [email or web address] documented [...] documented as of this encounter Care Teams Materials Technician Relationship Specialty Start Date End Date Giovanna Garcia NP [email or web address] PCP - General Family Medicine 11/15/17 08/22/23 Unknown, Unknown, MD PCP - General 08/23/23 03/07/24 Hayley Ni MD [facility] [place] [address] PCP - General Internal Medicine 03/08/24 Geronimo Beltran MD [address] [place] [address] [email or web address] Insurance Assigned Provider 09/19/20 06/17/23 Emely Barnes, ABE [address] [place] [address] [email or web address] [facility] Barbering Instructor 07/27/21 08/10/21 documented as of this encounter Additional Source Comments The information contained in this document represents components of the legal health record. It is not the complete legal health record.[facility]
--- OUTSIDE RECORDS SUMMARY | 2025-04-24 12:40 | XMS_ITS | Encounter Summary ---
Author Organization [facility] Address [address] [facility] [address] [place] [address] Phone Care Team Providers Care Chlorinator Name Role Phone Giovanna Garcia NP Primary Care Provider [phone] Geronimo Beltran MD Unavailable [phone] Emely Barnes RN Unavailable [phone] Unknown, Unknown Primary Care Provider Hayley Couch MD Primary Care Provider Encounter Details Date Type Department Care Team (Late Contact Info) Description 03/20/2020 Procedure Pass [facility] [address] [place] [address] Social History Tobacco Use Types Packs/Day Years [...] EST Office Visit [facility] [address] [place] [address] Efrain Melgar DO 22 [place] [address] [email or web address] documented as of this encounter Visit Diagnoses [...] documented as of this encounter Care Teams Chlorinator Relationship Specialty Start Date End Date Giovanna Garcia NP [email or web address] PCP - General Family Medicine 11/15/17 08/22/23 Unknown, Unknown, MD PCP - General 08/23/23 03/07/24 Hayley Ni MD [address] [facility] [place] [place] [address] PCP - General Internal Medicine 03/08/24 Geronimo Beltran MD [address] [place] [address] [email or web address] Insurance Assigned Provider 09/19/20 06/17/23 Emely Barnes, RN [address] [place] [address] [email or web address] [facility] Yard Hand 07/27/21 08/10/21 documented as of this encounter Additional Source Comments The information contained in this document represents components of the legal health record. It is not the complete legal health record.[facility]
--- OUTSIDE RECORDS SUMMARY | 2025-04-24 12:40 | XMS_ITS | Encounter Summary ---
Author Organization [facility] Address 399 [facility] [address] [place] [address] Phone Care Team Providers Care Teamcenter Consultant Name Role Phone Giovanna Garcia NP Primary Care Provider [phone] Geronimo Beltran MD Unavailable [phone] Emely Barnes RN Unavailable [phone] Unknown, Unknown Primary Care Provider Hayley Couch MD Primary Care Provider Encounter Details Date Type Department Care Team (Late Contact Info) Description 03/20/2020 Procedure Pass [facility] 30 [place] [address] Social History Tobacco Use Types Packs/Day Years [...] PM EST Office Visit [facility] [address] [place] [address] Efrain Melgar DO 22 [place] [address] [email or web address] documented as of this encounter Visit Diagnoses [...] documented as of this encounter Care Teams Teamcenter Consultant Relationship Specialty Start Date End Date Giovanna Garcia NP [email or web address] PCP - General Family Medicine 11/15/17 08/22/23 Unknown, Unknown, MD PCP - General 08/23/23 03/07/24 Hayley Ni MD [address] [facility] [place] [address] PCP - General Internal Medicine 03/08/24 Geronimo Beltran MD [address] [place] [address] [email or web address] Insurance Assigned Provider 09/19/20 06/17/23 Emely Barnes, RN [address] [place] [address] [email or web address] [facility] Hand Former 07/27/21 08/10/21 documented as of this encounter Additional Source Comments The information contained in this document represents components of the legal health record. It is not the complete legal health record.[facility]
--- OUTSIDE RECORDS SUMMARY | 2025-04-24 12:40 | XMS_ITS | Encounter Summary ---
Author Organization [facility] Address [address] [place] [address] Phone Care Team Providers Care Wire Fence Erector Name Role Phone Giovanna Garcia PRODUCTION LINE OPERATOR Primary Care Provider Geronimo Beltran MD Unavailable [phone] Emely Barnes RN Unavailable [phone] Unknown, Unknown Primary Care Provider Hayley Couch MD Primary Care Provider Encounter Details Date Type Department Care Team (Latest Contact Info) Description 03/18/2020 Prep for Surgery [facility] [address] [place] [address] Dr 3rd Floor, [address] [place] [address] Radu Somers MD 22 [place] [address] [email or web address] Syncope and collapse (Primary Dx) Social [...] 1:40 PM EST Office Visit [facility] [address] [place] [address] [place] [address] Efrain Melgar DO 22 [place] [address] [email or web address] documented as [...] documented as of this encounter Care Teams Wire Fence Erector Relationship Specialty Start Date End Date Giovanna Garcia NP [email or web address] PCP - General Family Medicine 11/15/17 08/22/23 Unknown, Daxa, PCP - General 08/23/23 03/07/24 Hayley Ni MD [facility] [place] [address] PCP - General Internal Medicine 03/08/24 Geronimo Beltran MD [address] [place] [address] [email or web address] Insurance Assigned Provider 09/19/20 06/17/23 Emely Barnes, ABE [address] [place] [address] [email or web address] PHCM Fur Scraper 07/27/21 08/10/21 documented as of this encounter Additional Source Comments The information contained in this document represents components of the legal health record. It is not the complete legal health record.[facility]
--- OUTSIDE RECORDS SUMMARY | 2025-04-24 12:41 | XMS_ITS | Encounter Summary ---
Author Organization [facility] Address [address] [employer] [facility] [address] [place] [address] Phone Care Team Providers Care Tour Bus Driver/Guide Name Role Phone Giovanna Garcia CIRCUS SUPERVISOR Primary Care Provider Geronimo Beltran MD Unavailable Emely Barnes RN Unavailable [phone] Unknown, Unknown Primary Care Provider Hayley Couch MD Primary Care Provider Encounter Details Date Type Department Care Team (Late st Contact Info) Description 04/21/2020 Transcribe Orders [facility] 30 [place] [address] Ian Anderson MD, [place] [address] [id number] [email or web address] Social History Tobacco Use Types Packs/Day Years [...] PM EST Office Visit [facility] [address] [place] [address] Efrain Melgar DO 22 [place] [address] [email or web address] documented as of this encounter [...] documented as of this encounter Care Teams Tour Bus Driver/Guide Relationship Specialty Start Date End Date Giovanna Garcia NP PCP - General Family Medicine 11/15/17 08/22/23 Unknown, Daxa, MD PCP - General 08/23/23 03/07/24 Hayley Ni MD [address] [facility] [address] PCP - General Internal Medicine 03/08/24 Geronimo Beltran MD [address] [place] [address] Insurance Assigned Provider 09/19/20 06/17/23 Emely Barnes, RN [address] [place] [address] [email or web address] PHCM It Investment/Portfolio Manager 07/27/21 08/10/21 documented as of this encounter Additional Source Comments The information contained in this document represents components of the legal health record. It is not the complete legal health record.[facility]
--- OUTSIDE RECORDS SUMMARY | 2025-04-24 12:41 | XMS_ITS | Encounter Summary ---
Author Organization [facility] Address 399 [facility] [address] [place] [address] Phone Care Team Providers Care Finance Assistant Name Role Phone Giovanna Garcia NP Primary Care Provider [phone] Geronimo Beltran MD Unavailable [phone] Emely Barnes RN Unavailable [phone] Unknown, Unknown Primary Care Provider Hayley Couch MD Primary Care Provider Encounter Details Date Type Department Care Team (Late st Contact Info) Description 02/01/2021 Procedure Pass [facility], [address] [address] Social History Tobacco Use Types Packs/Day Years [...] 1:40 PM EST Office Visit [facility] [place] [address] Efrain Melgar DO 22 [place] [address] [email or web address] documented as of this encounter [...] documented as of this encounter Care Teams Finance Assistant Relationship Specialty Start Date End Date Giovanna Garcia NP [email or web address] PCP - General Family Medicine 11/15/17 08/22/23 Unknown, Unknown, PCP - General 08/23/23 03/07/24 Hayley Ni MD [facility] [place] [address] PCP - General Internal Medicine 03/08/24 Geronimo Beltran MD [address] [place] [address] [email or web address] Insurance Assigned Provider 09/19/20 06/17/23 Emely Barnes, RN [address] [place] [address] [email or web address] PHCM Salvage Laborer 07/27/21 08/10/21 documented as of this encounter Additional Source Comments The information contained in this document represents components of the legal health record. It is not the complete legal health record.[facility]
--- OUTSIDE RECORDS SUMMARY | 2025-04-24 12:41 | XMS_ITS | Encounter Summary ---
Author Organization [facility] Address [address] [facility] [address] [place] [address] Phone Care Team Providers Care Semiconductor Development Technician Name Role Phone Giovanna Garcia NP Primary Care Provider [phone] Geronimo Beltran MD Unavailable [phone] Emely Barnes RN Unavailable [phone] Unknown, Unknown Primary Care Provider Hayley Couch MD Primary Care Provider Encounter Details Date Type Department Care Team (Late st Contact Info) Description 09/10/2018 Procedure Pass [facility], [address] [address] Social History Tobacco Use Types Packs/Day Years [...] 1:40 PM EST Office Visit [facility] [address] [place] [address] Efrain Melgar DO [address] [place] [address] [email or web address] documented as of this encounter Visit Diagnoses [...] documented as of this encounter Care Teams Semiconductor Development Technician Relationship Specialty Start Date End Date Giovanna Garcia CRIME PREVENTION POLICE OFFICER [email or web address] PCP - General Family Medicine 11/15/17 08/22/23 Unknown, Daxa, MD PCP - General 08/23/23 03/07/24 Hayley Ni MD [facility] [place] [address] PCP - General Internal Medicine 03/08/24 Geronimo Beltran MD [address] [place] [address] [email or web address] Insurance Assigned Provider 09/19/20 06/17/23 Emely Barnes, RN [address] [place] [address] [email or web address] PHCM Human Resources Mgr 07/27/21 08/10/21 documented as of this encounter Additional Source Comments The information contained in this document represents components of the legal health record. It is not the complete legal health record.[facility]
--- OUTSIDE RECORDS SUMMARY | 2025-04-24 12:41 | XMS_ITS | Encounter Summary ---
Author Organization [facility] Address 399 [facility] [address] [place] [address] Phone Care Team Providers Care Barber Stylist Name Role Phone Giovanna Garcia NP Primary Care Provider [phone] Geronimo Beltran MD Unavailable [phone] Emely Barnes RN Unavailable [phone] Unknown, Unknown Primary Care Provider Hayley Couch MD Primary Care Provider Encounter Details Date Type Department Care Team (Late st Contact Info) Description 04/01/2020 Procedure Pass [facility]-In[facility]iology [address] [place] [address] Social History Tobacco Use Types Packs/Day Years [...] PM EST Office Visit [facility] [address] [place] [address] Efrain Melgar DO 22 [place] [address] [email or web address] documented as [...] documented as of this encounter Care Teams Barber Stylist Relationship Specialty Start Date End Date Giovanna Garcia NP [email or web address] PCP - General Family Medicine 11/15/17 08/22/23 Unknown, Unknown, PCP - General 08/23/23 03/07/24 Hayley Ni MD [facility] [place] [address] PCP - General Internal Medicine 03/08/24 Geronimo Beltran MD [address] [place] [phone] Insurance Assigned Provider 09/19/20 06/17/23 Emely Barnes, RN [address] [place] [address] [facility] Airplane Cover Maker 07/27/21 08/10/21 documented as of this encounter Additional Source Comments The information contained in this document represents components of the legal health record. It is not the complete legal health record.[facility]
--- OUTSIDE RECORDS SUMMARY | 2025-04-24 12:41 | XMS_ITS | Encounter Summary ---
Author Organization [facility] Address [address] [place] [address] Phone Care Team Providers Care Parking Lot Spotter Name Role Phone Giovanna Garcia NP Primary Care Provider [phone] Geronimo Beltran MD Unavailable [phone] Unknown, Unknown Primary Care Provider Hayley Couch MD Primary Care Provider Encounter Details Date Type Department Care Team (Late st Contact Info) Description 02/24/2022 Procedure Pass [facility] 30 [place] [address] Social History Tobacco Use Types Packs/Day Years [...] high school, GED, job training, learning the Senegalese language, technical skills, or developing parenting skills)? [...] PM EST Office Visit [facility] [address] [place] [address] Efrain Melgar DO [address] [place] [address] documented as of this encounter Visit Diagnoses Not on filedocumented in this encounter Additional Health Concerns Infection Onset Date Last Indicated Resolved Time CoV-Risk 03/29/2022 03/29/2022 04/09/2022 1:22 AM EDT Assessment Noted Time PHQ-2 Depression Total Score: 2 08/11/19 9:20 AM EST documented as of this encounter Care Teams Parking Lot Spotter Relationship Specialty Start Date End Date Giovanna Garcia, TEACHING PASTOR PCP - General Family Medicine 11/15/17 08/22/23 Unknown, Unknown, MD PCP - General 08/23/23 03/07/24 Hayley Ni MD [address] [place] [address] [place] [address] PCP - General Internal Medicine 03/08/24 Geronimo Beltran MD [address] [place] [address] [email or web address] Insurance Assigned Provider 09/19/20 06/17/23 documented as of this encounter Additional Source Comments The information contained in this document represents components of the legal health record. It is not the complete legal health record.[facility]
--- OUTSIDE RECORDS SUMMARY | 2025-04-24 12:42 | XMS_ITS | Encounter Summary ---
Author Organization [facility] Address 399 [facility] [address] [place] [address] Phone Care Team Providers Care Almond Paste Molder Name Role Phone Geronimo Beltran MD Primary Care Provider [phone] Giovanna Garcia NP Primary Care Provider [phone] Geronimo Beltran MD Unavailable [phone] Emely Barnes RN Unavailable [phone] Unknown, Unknown Primary Care Provider Hayley Couch MD Primary Care Provider Encounter Details Date Type Department Care Team (Late Contact Info) Description 10/12/2017 Procedure Pass [facility], [facility] Scan - [address] [address] Social History Tobacco Use Types Packs/Day Years [...] PM EST Office Visit [facility] [address] [place] [address] Efrain Melgar DO 22 [place] [address] documented as of this encounter Visit Diagnoses [...] documented as of this encounter Care Teams Almond Paste Molder Relationship Specialty Start Date End Date Geronimo Beltran MD [address] [place] [address] [email or web address] PCP - General Internal Medicine 09/08/17 11/14/17 Giovanna Garcia NP [address] [place] [address] [email or web address] PCP - General Family Medicine 11/15/17 08/22/23 Unknown, Daxa, PCP - General 08/23/23 03/07/24 Hayley Ni MD [address] [place] [address] [place] [address] PCP - General Internal Medicine 03/08/24 Geronimo Beltran MD [address] [place] [address] [email or web address] Insurance Assigned Provider 09/19/20 06/17/23 Emely Barnes, RN [address] [place] [address] [email or web address] [facility] Bathhouse Keeper 07/27/21 08/10/21 documented as of this encounter Additional Source Comments The information contained in this document represents components of the legal health record. It is not the complete legal health record.[facility]
--- OUTSIDE RECORDS SUMMARY | 2025-04-24 12:42 | XMS_ITS | Encounter Summary ---
Author Organization [facility] Address [address] [place] [address] Phone Care Team Providers Care Body Finisher Name Role Phone Giovanna Garcia REINSPECTOR Primary Care Provider [phone] Geronimo Beltran MD Unavailable [phone] Emely Barnes RN Unavailable [phone] Unknown, Unknown Primary Care Provider Hayley Couch MD Primary Care Provider Encounter Details Date Type Department Care Team (Late st Contact Info) Description 11/16/2020 Ancillary Orders [facility] [address] [facility] 3rd Floor, [address] [place] [address] Patrice Quintero MD [address] [place] [phone] [email or web address] Social History Tobacco Use Types Packs/Day Years [...] PM EST Office Visit [facility] [address] [place] [address] [place] [address] [email or web address] documented [...] as of this encounter Care Teams Body Finisher Relationship Specialty Start Date End Date Giovanna Garcia NP PCP - General Family Medicine 11/15/17 08/22/23 Unknown, Unknown, MD PCP - General 08/23/23 03/07/24 Hayley Ni MD [facility] [address] [place] PCP - General Internal Medicine 03/08/24 Geronimo Beltran MD [address] [place] [address] [email or web address] Insurance Assigned Provider 09/19/20 06/17/23 Emely Barnes, RN [address] [place] [address] [email or web address] [facility] Hog Dro[facility] 07/27/21 08/10/21 documented as of this encounter Additional Source Comments The information contained in this document represents components of the legal health record. It is not the complete legal health record.[facility]
--- OUTSIDE RECORDS SUMMARY | 2025-04-24 12:42 | XMS_ITS | Clinical Summary ---
Author Organization [facility] Address [address] [place] [address] Phone Care Team Providers Care Talent Program Manager Name Role Phone Hayley Ni MD [...] mg total) by mouth daily. 3 Active [place] Saline 0.65 % nasal spray 2 DRP [...] age to complete this topic Insurance MEDICARE [facility] Care Teams Talent Program Manager Relationship Specialty Start Date End Date Hayley Ni MD [address] [place] [address] PCP - General 11/10/23
--- OUTSIDE RECORDS SUMMARY | 2025-04-24 12:42 | XMS_ITS | Encounter Summary ---
Author Organization [facility] Address [address] [facility] [address] [place] [address] Phone Care Team Providers Care Manager Fire Name Role Phone Giovanna Garcia NP Primary Care Provider [phone] Geronimo Beltran MD Unavailable [phone] Emely Barnes RN Unavailable [phone] Unknown, Unknown Primary Care Provider Hayley Couch MD Primary Care Provider Encounter Details Date Type Department Care Team (Late st Contact Info) Description 04/07/2020 Procedure Pass Non-Invasive Cardiology [address] [place] [address] Social History Tobacco Use Types Packs/Day Years [...] PM EST Office Visit [facility] [address] [place] [address] Efrain Melgar DO [address] [place] [address] [email or web address] [...] as of this encounter Care Teams Manager Fire Relationship Specialty Start Date End Date Giovanna Garcia NP [email or web address] PCP - General Family Medicine 11/15/17 08/22/23 Unknown, Unknown, PCP - General 08/23/23 03/07/24 Hayley Ni MD [facility] [place] [address] PCP - General Internal Medicine 03/08/24 Geronimo Beltran MD [address] [place] [address] Insurance Assigned Provider 09/19/20 06/17/23 Emely Barnes, RN [address] [place] [address] [facility] Edi Programmer Analyst 07/27/21 08/10/21 documented as of this encounter Additional Source Comments The information contained in this document represents components of the legal health record. It is not the complete legal health record.[facility]
--- OUTSIDE RECORDS SUMMARY | 2025-04-24 12:42 | XMS_ITS | Encounter Summary ---
Author Organization [facility] Address [address] [place] [address] Phone Care Team Providers Care Nutritional Services Cook Name Role Phone Giovanna Garcia NP Primary Care Provider [phone] Geronimo Beltran MD Unavailable [phone] Unknown, Unknown Primary Care Provider Hayley Couch MD Primary Care Provider Encounter Details Date Type Department Care Team (Late st Contact Info) Description 11/02/2021 Ancillary Orders [facility] [address] Floor, [address] [place] [address] Patrice Quintero MD [address] [place] [phone] [email or web address] Social History Tobacco Use Types [...] high school, GED, job training, learning the Singaporean language, technical skills, or developing parenting skills)? [...] PM EST Office Visit [facility] [address] [place] [address] Efrain Melgar DO [address] [place] [address] documented as of this encounter Visit Diagnoses Not on filedocumented in this encounter Additional Health Concerns Infection Onset Date Last Indicated Resolved Time CoV-Risk 03/29/2022 03/29/2022 04/09/2022 1:22 AM EDT Assessment Noted Time PHQ-2 Depression Total Score: 2 08/11/19 22 9:20 AM EST documented as of this encounter Care Teams Nutritional Services Cook Relationship Specialty Start Date End Date Giovanna Garcia NP [email or web address] PCP - General Family Medicine 11/15/17 08/22/23 Unknown, Unknown, MD PCP - General 08/23/23 03/07/24 Hayley Ni MD [facility] [place] [address] PCP - General Internal Medicine 03/08/24 Geronimo Beltran MD [address] [place] [address] [email or web address] Insurance Assigned Provider 09/19/20 06/17/23 documented as of this encounter Additional Source Comments The information contained in this document represents components of the legal health record. It is not the complete legal health record.[facility]
--- OUTSIDE RECORDS SUMMARY | 2025-04-24 12:42 | XMS_ITS | Encounter Summary ---
Author Organization [facility] Address [address] [place] [address] Phone Care Team Providers Care Farm Agent Name Role Phone Giovanna Garcia NP Primary Care Provider [phone] Geronimo Beltran MD Unavailable [phone] Emely Barnes RN Unavailable [phone] Unknown, Unknown Primary Care Provider Hayley Couch MD Primary Care Provider Reason for Referral * MRI/CAT Scan - Closed Specialty Diagnoses / Procedures Referred By Braulio t Referred To Contact Procedures CT Neck Outside (No Interpretation) System, Provider Not In, PhD [address] [address] Referral ID Status Reason Start Date Expiration Date Visits Re quested Visits Authorized [id number] Closed 10/04/2018 10/04/2019 1 1 Encounter Details Date Type Department Care Team (Late st Contact Info) Description 10/04/2018 Ancillary Orders [facility],Outside Imaging [address] [place], [place] [id number] System, Provider Not In, PhD [facility] [address] [address] Social History Tobacco Use Types Packs/Day Years [...] 1:40 PM EST Office Visit [facility] [address] [place] [address] Efrain Melgar DO [address] [place] [address] [email or web address] [...] as of this encounter Care Teams Farm Agent Relationship Specialty Start Date End Date Giovanna Garcia NP [email or web address] PCP - General Family Medicine 11/15/17 08/22/23 Unknown, Unknown, MD PCP - General 08/23/23 03/07/24 Hayley Ni MD [address] [place] [address] [place] [address] PCP - General Internal Medicine 03/08/24 Geronimo Beltran MD [address] [place] [address] [email or web address] Insurance Assigned Provider 09/19/20 06/17/23 Emely Barnes, RN [address] [place] [address] [email or web address] PHCM Shoe Repair Supervisor 07/27/21 08/10/21 documented as of this encounter Additional Source Comments The information contained in this document represents components of the legal health record. It is not the complete legal health record.[facility]
--- OUTSIDE RECORDS SUMMARY | 2025-04-24 12:42 | XMS_ITS | Encounter Summary ---
Author Organization [facility] Address [address] [place] [address] Phone Care Team Providers Care Orthopedics Pediatric Physician Name Role Phone Giovanna Garcia NP Primary Care Provider [phone] Geronimo Beltran MD Unavailable [phone] Emely Barnes RN Unavailable [phone] Unknown, Unknown Primary Care Provider Hayley Couch MD Primary Care Provider Encounter Details Date Type Department Care Team (Late st Contact Info) Description 08/10/2021 Procedure Pass [address] [place] [address] Social History Tobacco Use Types Packs/Day Years [...] high school, GED, job training, learning the [place] language, technical skills, or developing parenting skills)? [...] PM EST Office Visit [facility] [address] [place] [address] Efrain Melgar DO [address] [place] [address] documented as of this encounter Visit Diagnoses Not on filedocumented in this encounter Additional Health Concerns Infection Onset Date Last Indicated Resolved Time CoV-Risk 03/29/2022 03/29/2022 04/09/2022 1:22 AM EDT Assessment Noted Time PHQ-2 Depression Total Score: 2 08/11/19 22 9:20 AM EST documented as of this encounter Care Teams Orthopedics Pediatric Physician Relationship Specialty Start Date End Date Giovanna Garcia, DISABILITY INSURANCE HEARING OFFICER [email or web address] PCP - General Family Medicine 11/15/17 08/22/23 Unknown, Daxa, MD PCP - General 08/23/23 03/07/24 Hayley Ni MD [address] [place] [address] [place] [address] PCP - General Internal Medicine 03/08/24 Geronimo Beltran MD [address] [place] [address] [email or web address] Insurance Assigned Provider 09/19/20 06/17/23 Emely Barnes, RN [address] [place] [address] [email or web address] PHCM Fiber Optic Assembler 07/27/21 08/10/21 documented as of this encounter Additional Source Comments The information contained in this document represents components of the legal health record. It is not the complete legal health record.[facility]
--- OUTSIDE RECORDS SUMMARY | 2025-04-24 12:42 | XMS_ITS | Encounter Summary ---
Author Organization [facility] Address [address] [facility] [address] [place] [address] Phone Care Team Providers Care Bead Machine Operator Name Role Phone Giovanna Garcia NP Primary Care Provider [phone] Geronimo Beltran MD Unavailable [phone] Emely Barnes RN Unavailable [phone] Unknown, Unknown Primary Care Provider Hayley Couch MD Primary Care Provider Encounter Details Date Type Department Care Team (Late Contact Info) Description 09/30/2020 Procedure Pass [facility] [address] [place] [address] Social History Tobacco Use Types Packs/Day Years [...] PM EST Office Visit [facility] [address] [place] [address] [place] [address] [email or web address] documented [...] documented as of this encounter Care Teams Bead Machine Operator Relationship Specialty Start Date End Date Giovanna Garcia NP [email or web address] PCP - General Family Medicine 11/15/17 08/22/23 Unknown, Daxa, PCP - General 08/23/23 03/07/24 Hayley Ni MD [facility] [place] [address] PCP - General Internal Medicine 03/08/24 Geronimo Beltran MD [address] [place] [address] [email or web address] Insurance Assigned Provider 09/19/20 06/17/23 Emely Barnes, ABE [address] [place] [address] PHCM Loss Prevention Detective 07/27/21 08/10/21 documented as of this encounter Additional Source Comments The information contained in this document represents components of the legal health record. It is not the complete legal health record.[facility]
--- OUTSIDE RECORDS SUMMARY | 2025-04-24 12:42 | XMS_ITS | Encounter Summary ---
Author Organization [facility] Address [address] [place] [address] Phone Care Team Providers Care Corporate Legal Intern Name Role Phone Giovanna Garcia NP Primary Care Provider [phone] Geronimo Beltran MD Unavailable [phone] Emely Barnes RN Unavailable [phone] Unknown, Unknown Primary Care Provider Hayley Couch MD Primary Care Provider Encounter Details Date Type Department Care Team (Late st Contact Info) Description 06/02/2020 Procedure Pass [facility], Ct Scan - [address] [address] Social History Tobacco Use Types Packs/Day Years [...] 3:39 PM EST Justino España RN * [place] Suicide Severity Rating Scale (Screener/Recent Self-Report) Question [...] PM EST Office Visit [facility] [address] [place] [address] Efrain Melgar DO [address] [place] [address] [email or web address] documented as of this encounter Visit Diagnoses [...] as of this encounter Care Teams Corporate Legal Intern Relationship Specialty Start Date End Date Giovanna Garcia INSTRUCTIONAL COORDINATOR [email or web address] PCP - General Family Medicine 11/15/17 08/22/23 Unknown, Unknown, MD PCP - General 08/23/23 03/07/24 Hayley Ni MD [address] [place] [address] [place] [address] PCP - General Internal Medicine 03/08/24 Geronimo Beltran MD [address] [place] [address] [email or web address] Insurance Assigned Provider 09/19/20 06/17/23 Emely Barnes, RN [address] [place] [address] [email or web address] PHCM Info Print Press Operator 07/27/21 08/10/21 documented as of this encounter Additional Source Comments The information contained in this document represents components of the legal health record. It is not the complete legal health record.[facility]
--- OUTSIDE RECORDS SUMMARY | 2025-04-24 12:42 | XMS_ITS | Encounter Summary ---
Author Organization [facility] Address [address] [place] [address] Phone Care Team Providers Care Horseback Riding Instructor Name Role Phone Giovanna Garcia NP Primary Care Provider Geronimo Beltran MD Unavailable [phone] Unknown, Unknown Primary Care Provider Hayley Couch MD Primary Care Provider Encounter Details Date Type Department Care Team (Latest Contact Info) Description 11/02/2021 Ancillary Orders Non-Invasive Cardiology [address] [place] [address] Patrice Quintero MD [address] [place] [address] [email or web address] Syncope and collapse; Paroxysmal atrial fibrillation [...] high school, GED, job training, learning the Indonesian language, technical skills, or developing parenting skills)? [...] PM EST Office Visit [facility] [address] [place] [address] Efrain Melgar DO 22 [place] [address] [email or web address] documented as of this encounter Results * DEVICE CHECK: ILR IN-HOME INTERROGATION (02/02/2022 12:23 PM EDT) Narrative Radu Denise DO - 02/08/2022 9:50 AM EDT Remote interrogation of implantable loop recorder. 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: [employer] Symptoms: 0 Pauses: 0 Bradycardia: 0 [...] documented as of this encounter Care Teams Horseback Riding Instructor Relationship Specialty Start Date End Date Giovanna Garcia NP PCP - General Family Medicine 11/15/17 08/22/23 Unknown, Unknown, MD PCP - General 08/23/23 03/07/24 Hayley Ni MD [address] [place] [address] [place] [address] PCP - General Internal Medicine 03/08/24 Geronimo Beltran MD [address] [place] [address] [email or web address] Insurance Assigned Provider 09/19/20 06/17/23 documented as of this encounter Additional Source Comments The information contained in this document represents components of the legal health record. It is not the complete legal health record.[facility]
--- OUTSIDE RECORDS SUMMARY | 2025-04-24 12:42 | XMS_ITS | Encounter Summary ---
Author Organization [facility] Address [address] [place] [address] Phone Care Team Providers Care Company Secretary Name Role Phone Giovanna Garcia NP Primary Care Provider [phone] Geronimo Beltran MD Unavailable [phone] Emely Barnes RN Unavailable [phone] Unknown, Unknown Primary Care Provider Hayley Couch MD Primary Care Provider Encounter Details Date Type Department Care Team (Late st Contact Info) Description 12/26/2019 Ancillary [facility] [address] Floor, [address] [place] [address] Diana Hopkins, SUPERVISOR POLE YARD [address] [place] [address] [email or web address] Palpitations Social History Tobacco Use Types [...] PM EST Office Visit [facility] [address] [place] [address] Efrain Melgar DO [address] [place] [address] [email or web address] Scheduled Orders Name Type Priority Associated Diagnoses [...] documented as of this encounter Care Teams Company Secretary Relationship Specialty Start Date End Date Giovanna Garcia, MUTUAL FUND ANALYST PCP - General Family Medicine 11/15/17 08/22/23 Unknown, Unknown, MD PCP - General 08/23/23 03/07/24 Hayley Ni MD [address] [place] [address] [place] [address] PCP - General Internal Medicine 03/08/24 Geronimo Beltran MD [address] [place] [address] [email or web address] Insurance Assigned Provider 09/19/20 06/17/23 Emely Barnes, RN [address] [place] [address] [email or web address] PHCM Maker Up Folding 07/27/21 08/10/21 documented as of this encounter Additional Source Comments The information contained in this document represents components of the legal health record. It is not the complete legal health record.[facility]
--- OUTSIDE RECORDS SUMMARY | 2025-04-24 12:42 | XMS_ITS | Encounter Summary ---
Author Organization [facility] Address [address] [facility] [address] [place] [address] Phone Care Team Providers Care Risk Control Officer Name Role Phone Giovanna Garcia STEEL WORKER Primary Care Provider [phone] Geronimo Beltran MD Primary Care Provider [phone] Giovanna Garcia STEEL WORKER Primary Care Provider [phone] Geronimo Beltran MD Unavailable [phone] Emely Barnes RN Unavailable [phone] Unknown, Unknown Primary Care Provider Hayley Couch MD Primary Care Provider Encounter Details Date Type Department Care Team (Late st Contact Info) Description 09/05/2017 Procedure Pass [place] Admitting Dept - Virtual Department [address] [place] [address] Social History Tobacco Use Types Packs/Day Years [...] PM EST Office Visit [facility] [address] [place] [address] Efrain Melgar DO 22 [place] [address] [email or web address] documented as of this encounter Visit Diagnoses [...] documented as of this encounter Care Teams Risk Control Officer Relationship Specialty Start Date End Date Giovanna Garcia NP PCP - General Family Medicine 08/18/17 09/07/17 Geronimo Beltran MD 40 [place] [address] PCP - General Internal Medicine 09/08/17 11/14/17 Giovanna Garcia NP PCP - General Family Medicine 11/15/17 08/22/23 Unknown, Daxa, PCP - General 08/23/23 03/07/24 Hayley Ni MD [facility] [place] [address] PCP - General Internal Medicine 03/08/24 Geronimo Beltran MD [address] [place] [address] Insurance Assigned Provider 09/19/20 06/17/23 Emely Barnes, RN [address] [place] [address] [email or web address] [facility] Gis Analyst Developer 07/27/21 08/10/21 documented as of this encounter Additional Source Comments The information contained in this document represents components of the legal health record. It is not the complete legal health record.[facility]
--- OUTSIDE RECORDS SUMMARY | 2025-04-24 12:42 | XMS_ITS | Encounter Summary ---
Author Organization [facility] Address [address] [facility] [address] [place] [address] Phone Care Team Providers Care Liquor Store Manager Name Role Phone Giovanna Garcia NP Primary Care Provider Geronimo Beltran MD Unavailable [phone] Emely Barnes RN Unavailable [phone] Unknown, Unknown Primary Care Provider Hayley Couch MD Primary Care Provider Encounter Details Date Type Department Care Team (Late st Contact Info) Description 09/30/2020 Procedure Pass [facility], Ct Scan - [address] [address] Social History Tobacco Use Types Packs/Day Years [...] 1:40 PM EST Office Visit [facility] [place] [address] [place] [address] [email or web address] documented as of this encounter [...] documented as of this encounter Care Teams Liquor Store Manager Relationship Specialty Start Date End Date Giovanna Garcia NP [email or web address] PCP - General Family Medicine 11/15/17 08/22/23 Unknown, Unknown, PCP - General 08/23/23 03/07/24 Hayley Ni MD [facility] [place] [address] PCP - General Internal Medicine 03/08/24 Geronimo Beltran MD [address] [place] [address] [email or web address] Insurance Assigned Provider 09/19/20 06/17/23 Emely Barnes, RN [address] [place] [address] [email or web address] PHCM Stone Breaker 07/27/21 08/10/21 documented as of this encounter Additional Source Comments The information contained in this document represents components of the legal health record. It is not the complete legal health record.[facility]
--- OUTSIDE RECORDS SUMMARY | 2025-04-24 12:42 | XMS_ITS | Encounter Summary ---
Author Organization [facility] Address [address] [facility] [address] [place] [address] Phone Care Team Providers Care Parking Assistant Name Role Phone Geronimo Beltran MD Primary Care Provider [phone] Giovanna Garcia NP Primary Care Provider [phone] Geronimo Beltran MD Unavailable [phone] Emely Barnes RN Unavailable [phone] Unknown, Unknown Primary Care Provider Hayley Couch MD Primary Care Provider Encounter Details Date Type Department Care Team (Late st Contact Info) Description 09/08/2017 Procedure Pass [facility], Ct Scan - [address] [address] Social History Tobacco Use Types Packs/Day Years [...] 1:40 PM EST Office Visit [facility] [address] [place] [address] Efrain Melgar DO [address] [place] [address] [email or web address] documented as of this encounter Visit [...] as of this encounter Care Teams Parking Assistant Relationship Specialty Start Date End Date Geronimo Beltran MD [address] [place] [address] [email or web address] PCP - General Internal Medicine 09/08/17 11/14/17 Giovanna Garcia, RAIL LAYER [address] [place] [address] [email or web address] PCP - General Family Medicine 11/15/17 08/22/23 Unknown, Daxa, MD PCP - General 08/23/23 03/07/24 Hayley Ni MD [address] [place] [address] [place] [address] PCP - General Internal Medicine 03/08/24 Geronimo Beltran MD 40 [place] [address] [email or web address] Insurance Assigned Provider 09/19/20 06/17/23 Emely Barnes, RN 10 [place] [address] [email or web address] [facility] Hotel Maid 07/27/21 08/10/21 documented as of this encounter Additional Source Comments The information contained in this document represents components of the legal health record. It is not the complete legal health record.[facility]
--- OUTSIDE RECORDS SUMMARY | 2025-04-24 12:42 | XMS_ITS | Encounter Summary ---
Author Organization [facility] Address [address] [facility] [address] [place] [address] Phone Care Team Providers Care Repairer General Name Role Phone Giovanna Garcia NP Primary Care Provider [phone] Geronimo Beltran MD Unavailable [phone] Emely Barnes RN Unavailable [phone] Unknown, Unknown Primary Care Provider Hayley Couch MD Primary Care Provider Encounter Details Date Type Department Care Team (Late st Contact Info) Description 09/27/2018 Procedure Pass [facility], [address] [address] Social History Tobacco Use Types Packs/Day Years [...] PM EST Office Visit [facility] [address] [place] [address] Efrain Melgar DO [address] [place] [address] [email or web address] documented as of this encounter Visit Diagnoses [...] documented as of this encounter Care Teams Repairer General Relationship Specialty Start Date End Date Giovanna Garcia RUBBER GOODS CUTTER FINISHER [email or web address] PCP - General Family Medicine 11/15/17 08/22/23 Unknown, Daxa, MD PCP - General 08/23/23 03/07/24 Hayley Ni MD [facility] [place] [address] PCP - General Internal Medicine 03/08/24 Geronimo Beltran MD [address] [place] [address] [email or web address] Insurance Assigned Provider 09/19/20 06/17/23 Emely Barnes, RN [address] [place] [address] [email or web address] PHCM Switchboard Inspector 07/27/21 08/10/21 documented as of this encounter Additional Source Comments The information contained in this document represents components of the legal health record. It is not the complete legal health record.[facility]
--- OUTSIDE RECORDS SUMMARY | 2025-04-24 12:42 | XMS_ITS | Encounter Summary ---
Author Organization [facility] Address [email or web address] [facility] [address] [place] [address] Phone Care Team Providers Care Colorist Dyer Name Role Phone Giovanna Garcia STRIKE PLANNING APPLICATIONS Primary Care Provider Geronimo Beltran MD Unavailable [phone] Emely Barnes RN Unavailable [phone] Unknown, Unknown Primary Care Provider Hayley Couch MD Primary Care Provider Encounter Details Date Type Department Care Team (Late st Contact Info) Description 11/16/2020 Ancillary Orders Non-Invasive Cardiology [address] [place] [address] Patrice Quintero MD [address] [place] [address] [email or web address] Syncope [...] PM EST Office Visit [facility] [address] [place] [address] RamónEfrain, DO [address] [place] [address] [email or web address] documented as of this encounter Results * (ABNORMAL) DEVICE CHECK: ILR IN-HOME INTERROGATION (11/16/2020 10:16 AM EDT) Narrative Patrice Quintero MD - 11/23/2020 1:10 PM EDT Remote interrogation of implantable loop recorder. 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 Mender: Bag Borrow or Steal Symptoms: 0 Pauses: 0 Bradycardia: 0 Tachycardia: [...] documented as of this encounter Care Teams Colorist Dyer Relationship Specialty Start Date End Date Giovanna Garcia NP [email or web address] PCP - General Family Medicine 11/15/17 08/22/23 Unknown, Unknown, MD PCP - General 08/23/23 03/07/24 Hayley Ni MD [employer] [facility] [place] [address] PCP - General Internal Medicine 03/08/24 Geronimo Beltran MD [address] [place] [address] [email or web address] Insurance Assigned Provider 09/19/20 06/17/23 Emely Barnes, RN [address] [place] [address] [email or web address] [facility] Door Trimmer 07/27/21 08/10/21 documented as of this encounter Additional Source Comments The information contained in this document represents components of the legal health record. It is not the complete legal health record.[facility]
--- OUTSIDE RECORDS SUMMARY | 2025-04-24 12:42 | XMS_ITS | Encounter Summary ---
Author Organization [facility] Address [address] [facility] [address] [place] [address] Phone Care Team Providers Care Internet E Commerce Specialist Name Role Phone Giovanna Garcia NP Primary Care Provider [phone] Geronimo Beltran MD Unavailable [phone] Emely Barnes RN Unavailable [phone] Unknown, Unknown Primary Care Provider Hayley Couch MD Primary Care Provider Encounter Details Date Type Department Care Team (Late st Contact Info) Description 03/27/2020 Procedure Pass [facility], [address] [address] Social History Tobacco Use Types Packs/Day Years [...] 1:40 PM EST Office Visit [facility] [address] Efrain Melgar DO 22 [place] [address] [email or web address] documented as of this encounter [...] as of this encounter Care Teams Internet E Commerce Specialist Relationship Specialty Start Date End Date Giovanna Garcia NP [email or web address] PCP - General Family Medicine 11/15/17 08/22/23 Unknown, Unknown, PCP - General 08/23/23 03/07/24 Hayley Ni MD [address] [facility] [place] [address] PCP - General Internal Medicine 03/08/24 Geronimo Beltran MD [address] [place] [address] [email or web address] Insurance Assigned Provider 09/19/20 06/17/23 Emely Barnes, RN [address] [place] [address] [email or web address] [facility] Electrical Installer 07/27/21 08/10/21 documented as of this encounter Additional Source Comments The information contained in this document represents components of the legal health record. It is not the complete legal health record.[facility]
--- OUTSIDE RECORDS SUMMARY | 2025-04-24 12:42 | XMS_ITS | Encounter Summary ---
Author Organization [facility] Address [address] [facility] [address] [place] [address] Phone Care Team Providers Care Structural Engineering Drafting Officer Name Role Phone Giovanna Garcia NP Primary Care Provider [phone] Geronimo Beltran MD Unavailable [phone] Emely Barnes RN Unavailable [phone] Unknown, Unknown Primary Care Provider Hayley Couch MD Primary Care Provider Encounter Details Date Type Department Care Team (Late Contact Info) Description 09/24/2020 Procedure Pass [facility] 30 [place] [address] Social History Tobacco Use Types Packs/Day Years [...] PM EST Office Visit [facility] [address] [place] [address] [place] [address] [email or web address] [...] as of this encounter Care Teams Structural Engineering Drafting Officer Relationship Specialty Start Date End Date Giovanna Garcia NP [email or web address] PCP - General Family Medicine 11/15/17 08/22/23 Unknown, Daxa, PCP - General 08/23/23 03/07/24 Hayley Ni MD [facility] [place] [address] PCP - General Internal Medicine 03/08/24 Geronimo Beltran MD [address] [place] [address] [email or web address] Insurance Assigned Provider 09/19/20 06/17/23 Emely Barnes, ABE [address] [place] [address] PH[facility] Lpn Medical Assistant 07/27/21 08/10/21 documented as of this encounter Additional Source Comments The information contained in this document represents components of the legal health record. It is not the complete legal health record.[facility]
--- OUTSIDE RECORDS SUMMARY | 2025-04-24 12:42 | XMS_ITS | Encounter Summary ---
Author Organization [facility] Address [address] [place] [address] Phone Care Team Providers Care Electrical And Electronic Assembler Name Role Phone Giovanna Garcia NP Primary Care Provider [phone] Geronimo Beltran MD Unavailable [phone] Emely Barnes RN Unavailable [phone] Unknown, Unknown Primary Care Provider Hayley Couch MD Primary Care Provider Encounter Details Date Type Department Care Team (Late st Contact Info) Description 08/10/2021 Procedure Pass [address] [place] [address] Social History Tobacco Use Types Packs/Day Years [...] high school, GED, job training, learning the Macedonian language, technical skills, or developing parenting skills)? [...] PM EST Office Visit [facility] [address] [place] [address] Efrain Melgar DO [address] [place] [address] documented as of this encounter Visit Diagnoses Not on filedocumented in this encounter Additional Health Concerns Infection Onset Date Last Indicated Resolved Time CoV-Risk 03/29/2022 03/29/2022 04/09/2022 1:22 AM EDT Assessment Noted Time PHQ-2 Depression Total Score: 2 08/11/19 22 9:20 AM EST documented as of this encounter Care Teams Electrical And Electronic Assembler Relationship Specialty Start Date End Date Giovanna Garcia, SHORT HAUL DRIVER [email or web address] PCP - General Family Medicine 11/15/17 08/22/23 Unknown, Daxa, MD PCP - General 08/23/23 03/07/24 Hayley Ni MD [address] [place] [address] [place] [address] PCP - General Internal Medicine 03/08/24 Geronimo Beltran MD [address] [place] [address] [email or web address] Insurance Assigned Provider 09/19/20 06/17/23 Emely Barnes, RN 10 [place] [address] [email or web address] PHCM Camouflage Specialist 07/27/21 08/10/21 documented as of this encounter Additional Source Comments The information contained in this document represents components of the legal health record. It is not the complete legal health record.[facility]
--- OUTSIDE RECORDS SUMMARY | 2025-04-24 12:43 | XMS_ITS | Encounter Summary ---
Author Organization [facility] Address [address] [facility] [address] [place] [address] Phone Care Team Providers Care Recharger Name Role Phone Giovanna Garcia NP Primary Care Provider [phone] Geronimo Beltran MD Unavailable [phone] Emely Barnes RN Unavailable [phone] Unknown, Unknown Primary Care Provider Hayley Couch MD Primary Care Provider Encounter Details Date Type Department Care Team (Late st Contact Info) Description 11/16/2020 Procedure Pass Non-Invasive Cardiology [address] [place] [address] Social History Tobacco Use Types Packs/Day Years [...] PM EST Office Visit [facility] [address] [place] [address] Efrain Melgar DO 22 [place] [address] [email or web address] documented as [...] documented as of this encounter Care Teams Recharger Relationship Specialty Start Date End Date Giovanna Garcia NP [email or web address] PCP - General Family Medicine 11/15/17 08/22/23 Unknown, Unknown, PCP - General 08/23/23 03/07/24 Hayley Ni MD [facility] [place] [address] PCP - General Internal Medicine 03/08/24 Geronimo Beltran MD [address] [place] [address] [email or web address] Insurance Assigned Provider 09/19/20 06/17/23 Emely Barnes, ABE [address] [place] [address] PHCM Feller Operator 07/27/21 08/10/21 documented as of this encounter Additional Source Comments The information contained in this document represents components of the legal health record. It is not the complete legal health record.[facility]
--- OUTSIDE RECORDS SUMMARY | 2025-04-24 12:43 | XMS_ITS | Encounter Summary ---
Author Organization [facility] Address [address] [facility] [address] [place] [address] Phone Care Team Providers Care Data Integrity Analyst Name Role Phone Giovanna Garcia NP Primary Care Provider Geronimo Beltran MD Unavailable Emely Barnes RN Unavailable [phone] Unknown, Unknown Primary Care Provider Hayley Couch MD Primary Care Provider Reason for Referral * MRI/CAT Scan - Closed Specialty Diagnoses / Procedures Referred By Braulio sheehan Referred To Contact Radiology Diagnoses Memory loss Hx of cancer of lung Procedures MRI Brain Efrain Elliott MD Phone: tel: fax: mailto:[email or web address] Referral ID Status Reason Start Date Expiration Date Visits Re quested Visits Authorized [id number] Closed 02/01/2021 02/01/2022 1 1 Encounter Details Date Type Department Care Team (Latest Contact Info) Description 02/01/2021 Transcribe Orders Virtual Department [address] [place] [address] Efrain Elliott MD [address] [place] [address], [address] [place], [place] [id number] [email or web address] Memory loss (Primary Dx); Hx [...] PM EST Office Visit [facility] [address] [place] [address] Efrain Melgar DO [address] [place] [address] documented as of this encounter Results * [...] documented as of this encounter Care Teams Data Integrity Analyst Relationship Specialty Start Date End Date Giovanna Garcia NP [email or web address] PCP - General Family Medicine 11/15/17 08/22/23 Unknown, Unknown, MD PCP - General 08/23/23 03/07/24 Hayley Ni MD [facility] [address] PCP - General Internal Medicine 03/08/24 Geronimo Beltran MD [address] [place] [address] [email or web address] Insurance Assigned Provider 09/19/20 06/17/23 Emely Barnes, RN [address] [place] [address] [email or web address] PHCM City Councilman 07/27/21 08/10/21 documented as of this encounter Additional Source Comments The information contained in this document represents components of the legal health record. It is not the complete legal health record.[facility]
--- OUTSIDE RECORDS SUMMARY | 2025-04-24 12:43 | XMS_ITS | Encounter Summary ---
Author Organization [facility] Address [address] [facility] [address] [place] [address] Phone Care Team Providers Care Group Marketing Vp Name Role Phone Giovanna Garcia NP Primary Care Provider [phone] Geronimo Beltran MD Unavailable [phone] Emely Barnes RN Unavailable [phone] Unknown, Unknown Primary Care Provider Hayley Couch MD Primary Care Provider Reason for Referral * MRI/CAT Scan - Closed Specialty Diagnoses / Procedures Referred By Braulio sheehan Referred To Contact Radiology Diagnoses White matter disease, unspecified Numbness Procedures MRI Thoracic Spine Efrain Elliott MD Phone: tel: fax: mailto:[email or web address] Referral ID Status Reason Start Date Expiration Date Visits Re quested Visits Authorized [id number] Closed 03/17/2020 03/17/2021 1 1 Encounter Details Date Type Department Care Team (Latest Contact Info) Description 03/17/2020 Transcribe Orders Virtual Department [address] [place] [address] Efrain Elliott MD [address] [place] [address], [address] [place], [place] [phone] [email or web address] White matter disease, unspecified (Primary [...] PM EST Office Visit [facility] [address] [place] [address] Efrain Melgar DO [address] [place] [address] [email or web address] documented as of [...] 3. No disc protrusion or stenosis. POS [id number] Narrative 03/26/2020 9:49 AM EDT TECHNIQUE: 1.5 [...] 3. No disc protrusion or stenosis. POS [id number] Efrain Elliott MD IMG MR XSPECIALTY Final [...] documented as of this encounter Care Teams Group Marketing Vp Relationship Specialty Start Date End Date Giovanna Garcia NP [email or web address] PCP - General Family Medicine 11/15/17 08/22/23 Unknown, Daxa, PCP - General 08/23/23 03/07/24 Hayley Ni MD [facility] [place] [address] PCP - General Internal Medicine 03/08/24 Geronimo Beltran MD [address] [place] [address] [email or web address] Insurance Assigned Provider 09/19/20 06/17/23 Emely Barnes, ABE [address] [place] [address] [email or web address] [facility] Nursing Tech 07/27/21 08/10/21 documented as of this encounter Additional Source Comments The information contained in this document represents components of the legal health record. It is not the complete legal health record.[facility]
--- OUTSIDE RECORDS SUMMARY | 2025-04-24 12:43 | XMS_ITS | Encounter Summary ---
Author Organization [facility] Address [address] [facility] [address] [place] [address] Phone Care Team Providers Care System Programmer Name Role Phone Giovanna Garcia CLINICAL COUNSELOR Primary Care Provider Geronimo Beltran MD Unavailable [phone] Emely Barnes RN Unavailable [phone] Unknown, Unknown Primary Care Provider Hayley Couch MD Primary Care Provider Encounter Details Date Type Department Care Team (Late st Contact Info) Description 02/16/2021 Ancillary Orders Non-Invasive Cardiology [address] [place] [address] Patrice Quintero MD 30 [place] [address] [email or web address] Syncope and collapse Social History Tobacco [...] PM EST Office Visit [facility] [address] [place] [address] RamónEfrain, 22 [place] [address] [email or web address] documented as of this encounter Results * DEVICE CHECK: ILR IN-HOME INTERROGATION (02/16/2021 9:45 AM EDT) Narrative Patrice Quintero MD - 02/21/2021 2:58 PM EDT Remote interrogation of implantable loop recorder. Reason for implant: Syncope Golf Sales Manager: [employer] Symptoms: 0 Pauses: 0 Bradycardia: 0 Tachycardia: [...] documented as of this encounter Care Teams System Programmer Relationship Specialty Start Date End Date Giovanna Garcia NP [email or web address] PCP - General Family Medicine 11/15/17 08/22/23 Unknown, Daxa, PCP - General 08/23/23 03/07/24 Hayley Ni MD [address] [place] [address] [place] [address] PCP - General Internal Medicine 03/08/24 Geronimo Beltran MD [address] [place] [address] [email or web address] Insurance Assigned Provider 09/19/20 06/17/23 Emely Barnes, RN [address] [place] [address] [email or web address] [facility] Director Of Programming 07/27/21 08/10/21 documented as of this encounter Additional Source Comments The information contained in this document represents components of the legal health record. It is not the complete legal health record.[facility]
--- OUTSIDE RECORDS SUMMARY | 2025-04-24 12:43 | XMS_ITS | Encounter Summary ---
Author Organization [facility] Address [address] [facility] [address] [place] [address] Phone Care Team Providers Care Web Production Manager Name Role Phone Giovanna Garcia NP Primary Care Provider [phone] Geronimo Beltran MD Unavailable [phone] Emely Barnes RN Unavailable [phone] Unknown, Unknown Primary Care Provider Hayley Couch MD Primary Care Provider Encounter Details Date Type Department Care Team (Late st Contact Info) Description 03/13/2020 Procedure Pass [facility] 30 [place] [address] Social History Tobacco Use Types Packs/Day Years [...] 1:40 PM EST Office Visit [facility] [place] [address] Efrain Melgar DO 22 [place] [address] [email or web address] documented as of [...] documented as of this encounter Care Teams Web Production Manager Relationship Specialty Start Date End Date Giovanna Garcia NP [email or web address] PCP - General Family Medicine 11/15/17 08/22/23 Unknown, Unknown, PCP - General 08/23/23 03/07/24 Hayley Ni MD [address] [facility] [place] [address] PCP - General Internal Medicine 03/08/24 Geronimo Beltran MD [address] [place] [address] [email or web address] Insurance Assigned Provider 09/19/20 06/17/23 Emely Barnes, ABE [address] [place] [address] [email or web address] [facility] Concrete Block Molder 07/27/21 08/10/21 documented as of this encounter Additional Source Comments The information contained in this document represents components of the legal health record. It is not the complete legal health record.[facility]
--- OUTSIDE RECORDS SUMMARY | 2025-04-24 12:43 | XMS_ITS | Encounter Summary ---
Author Organization [facility] Address [address] [place] [address] Phone Care Team Providers Care Assembly Line Supervisor Name Role Phone Giovanna Garcia ART GLASS DESIGNER Primary Care Provider [phone] Geronimo Beltran MD Unavailable [phone] Emely Barnes RN Unavailable [phone] Unknown, Unknown Primary Care Provider Hayley Couch MD Primary Care Provider Encounter Details Date Type Department Care Team (Late st Contact Info) Description 02/16/2021 Ancillary Orders [facility] [address] [facility] 3rd Floor, [address] [place] [address] Patrice Quintero MD [address] [place] [phone] [email or web address] Social History Tobacco Use Types [...] PM EST Office Visit [facility] [address] [place] [address] Ef[place] [address] [email or web address] [...] documented as of this encounter Care Teams Assembly Line Supervisor Relationship Specialty Start Date End Date Giovanna Garcia NP PCP - General Family Medicine 11/15/17 08/22/23 Unknown, Unknown, MD PCP - General 08/23/23 03/07/24 Hayley Ni MD [facility] [address] [place] PCP - General Internal Medicine 03/08/24 Geronimo Beltran MD [address] [place] [address] [email or web address] Insurance Assigned Provider 09/19/20 06/17/23 Emely Barnes, RN [address] [place] [address] [email or web address] [facility] Digital Marketing Manager 07/27/21 08/10/21 documented as of this encounter Additional Source Comments The information contained in this document represents components of the legal health record. It is not the complete legal health record.[facility]
--- OUTSIDE RECORDS SUMMARY | 2025-04-24 12:43 | XMS_ITS | Encounter Summary ---
Author Organization [facility] Address [address] [facility] [address] [place] [address] Phone Care Team Providers Care Instrument Lens Grinder Name Role Phone Giovanna Garcia NP Primary Care Provider [phone] Geronimo Beltran MD Unavailable [phone] Emely Barnes RN Unavailable [phone] Unknown, Unknown Primary Care Provider Hayley Couch MD Primary Care Provider Encounter Details Date Type Department Care Team (Late st Contact Info) Description 02/16/2021 Procedure Pass Non-Invasive Cardiology [address] [place] [address] Social History Tobacco Use Types Packs/Day Years [...] PM EST Office Visit [facility] [address] [place] [address] Efrain Melgar DO 22 [place] [address] [email or web address] documented as of this encounter Visit Diagnoses [...] documented as of this encounter Care Teams Instrument Lens Grinder Relationship Specialty Start Date End Date Giovanna Garcia NP [email or web address] PCP - General Family Medicine 11/15/17 08/22/23 Unknown, Unknown, PCP - General 08/23/23 03/07/24 Hayley Ni MD [facility] [place] [address] PCP - General Internal Medicine 03/08/24 Geronimo Beltran MD [address] [place] [address] [email or web address] Insurance Assigned Provider 09/19/20 06/17/23 Emely Barnes, ABE [address] [place] [address] PHCM Airport Maintenance Chief 07/27/21 08/10/21 documented as of this encounter Additional Source Comments The information contained in this document represents components of the legal health record. It is not the complete legal health record.[facility]
--- OUTSIDE RECORDS SUMMARY | 2025-04-24 12:44 | XMS_ITS | Encounter Summary ---
Author Organization [facility] Address [address] [facility] [address] [place] [address] Phone Care Team Providers Care Pleating Machine Operator Name Role Phone Giovanna Garcia NP Primary Care Provider [phone] Geronimo Beltran MD Unavailable [phone] Emely Barnes RN Unavailable [phone] Unknown, Unknown Primary Care Provider Hayley Couch MD Primary Care Provider Encounter Details Date Type Department Care Team (Late Contact Info) Description 03/20/2019 Ancillary Orders [facility],Outside [facility] [address] [place], [place] [id number] System, Provider [place] In, [place] [address] Social History Tobacco Use Types Packs/Day Years [...] PM EST Office Visit [facility] [address] [place] [address] [place] [address] Efrain Melgar DO [address] [place] [address] [email or web address] documented as of this [...] documented as of this encounter Care Teams Pleating Machine Operator Relationship Specialty Start Date End Date Giovanna Garcia NP [email or web address] PCP - General Family Medicine 11/15/17 08/22/23 Unknown, Daxa, MD PCP - General 08/23/23 03/07/24 Hayley Ni MD [address] [place] [address] [place] [address] PCP - General Internal Medicine 03/08/24 Geronimo Beltran MD [address] [place] [address] [email or web address] Insurance Assigned Provider 09/19/20 06/17/23 Emely Barnes, RN [address] [place] [address] [email or web address] PHCM Floating Derrick Operator 07/27/21 08/10/21 documented as of this encounter Additional Source Comments The information contained in this document represents components of the legal health record. It is not the complete legal health record.[facility]
--- OUTSIDE RECORDS SUMMARY | 2025-04-24 12:44 | XMS_ITS | Patient Health Record ---
Author Organization [facility] Address [address] [place] [id number] Care Team Providers Care Needle Maker Name Role Phone Abigail Em MD Primary Care Provider Noah Hummel [phone] Allergies Allergen (clinical drug ingredient) Drug/Non Drug [...] Problem Screening for malignant neoplasm of colon (484922992) Encounter for screening for malignant neoplasm of colon (Z12.11) Active confirmed Problem History of adenomatous polyp of colon (093676926) History of adenomatous polyp of colon (Z86.010) Active confirmed Problem Nausea and vomiting (91899436) Nausea with vomiting, unspecified (R11.2) Active confirmed Problem Gastroesophageal reflux disease without esophagitis (100980119) Gastroesophageal reflux disease without esophagitis (K21.9) Active confirmed Problem Dysphagia (77939215) Dysphagia, unspecified type (R13.10) Active confirmed Problem Acute diarrhea (663321275) Acute diarrhea (R19.7) Active confirmed Plan Of [...] Date MEDICARE OF [place] [address] [facility] [place] [address] [id number] SHAYLA VJ Self - patient is the insured MED[employer] ATTN CLAIMS [address] [place] [address] [phone] [id number] 2 VJ MCGUIRE Self - patient is [...] some sigmoid diverticulosis and internal hemorrhoids Denies FL,CVA,DM,renal disease Hyperlipidemia Anxiety since 08/2011 IBS-EGD with normal duodenal biopsies in 2012 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
--- OUTSIDE RECORDS SUMMARY | 2025-04-24 12:44 | XMS_ITS | Encounter Summary ---
Author Organization [facility] Address [address] [facility] [address] [place] [address] Phone Care Team Providers Care Tax Appraiser Name Role Phone Giovanna Garcia NP Primary Care Provider [phone] Geronimo Beltran MD Unavailable [phone] Emely Barnes RN Unavailable [phone] Unknown, Unknown Primary Care Provider Hayley Couch MD Primary Care Provider Encounter Details Date Type Department Care Team (Late st Contact Info) Description 03/10/2020 Procedure Pass [facility], Ct Scan - [address] [address] Social History Tobacco Use Types Packs/Day Years [...] 1:40 PM EST Office Visit [facility] [address] Efrain Melgar DO [address] [place] [address] [email or web address] documented as of this encounter Visit Diagnoses [...] as of this encounter Care Teams Tax Appraiser Relationship Specialty Start Date End Date Giovanna Garcia NP [email or web address] PCP - General Family Medicine 11/15/17 08/22/23 Unknown, Unknown, MD PCP - General 08/23/23 03/07/[address] [facility] [place] [address] PCP - General Internal Medicine 03/08/24 Geronimo Beltran MD [address] [place] [address] Insurance Assigned Provider 09/19/20 06/17/23 Emely Barnes, ABE [address] [place] [address] [email or web address] PHCM Bottle Filler 07/27/21 08/10/21 documented as of this encounter Additional Source Comments The information contained in this document represents components of the legal health record. It is not the complete legal health record.[facility]
--- OUTSIDE RECORDS SUMMARY | 2025-04-24 12:44 | XMS_ITS | Clinical Summary ---
Author Organization [facility] Address [address] [employer] [facility] [address] [place] [address] Phone Care Team Providers Care Imaging Scheduler Name Role Phone Hayley Ni MD Primary [...] done soon after waking up at a [facility] facility. Vitamin D deficiency 09/23/2024 Assessment [...] intake. I asked her to buy Citracal [id number] she should take 2 tablets daily preferably [...] hopefully, they will again be available at [facility]. Syncope 03/10/2020 Assessment & Plan (07/06/2020 1:37 PM EST): No recurrence of any syncope, near syncope, or seizure symptoms recently. We will continue to check her loop recorder routinely. Assessment & Plan (03/11/2020 5:49 PM EDT): Question brought on by atrial fibrillation, versus seizure --Continue gambling monitor. Implantable loop recorder being planned for [...] seen vaginal bleeding or bleeding with intercourse Manager Strategic Partnerships exam normal Offered estrace topically Psychophysiological insomnia [...] she has elevated risk of stroke her [id number] score of 3 with 3.2% adjusted stroke [...] Team Description 02/06/2025 1:30 PM EDT Infusion [facility] [address] [place] [address] Efrain Melgar DO Age-related osteoporosis without current pathological fracture (Primary Dx) from Last 3 Months Immunizations Immunization Administration Dates Next Due INFLUENZA, SPLIT VIRUS, TRIVALENT PF 03/04/2016, 06/03/2015 INFLUENZA, SPLIT VIRUS, TRIV ALENT W/ PRESERVATIVE IM 03/12/2021,03/12/2019,01/31/2017,03/27,02/16/2011 Influenza High-Dose Quadriva lent Preservative Free IM 04/28/2022,05/31/2021,03/26/2020,03/12(Deferred: Not Available From History Card Clerk) Influenza Quadrivalent Prese rvative Free IM 03/20/2019,03/20/2018 [...] you interested in more education? Not on dlema e 08/23/2023 Are you concerned about learning? [...] PM EST Office Visit [facility] [address] [place] [address] Efrain Melgar DO [address] [place] [address] [email or web address] Health Maintenance Due Date Last Done Comments [...] this topic Medical Devices Implanted Type Area History Card Clerk Device Identifier Shelf Expiration Date Model / Serial / Lot Monitor Cardiac Implantable And Patient Home Monitor [employer] - [id number] Implanted:Qty: 1 on 03/20/2020 by Radu Somers MD at [facility] Implantable Monitor [employer] 11/23/2020 [employer] / [id number] / Procedures Procedure Name Priority Date/Time Associated [...] 8:30 AM EDT) URINE CREATININE 80 mg/dL [facility] CREATININE OUTPUT 720 600 - 1,800 mg/total output [facility] Urine (Urine) 12/23/2024 8:3 0 AM EDT 12/23/2024 8:59 AM EDT Efrain Melgar DO LAB URINE ORDERABLES Final Resul t Performing Organization Address City/State/[facility] Co de Phone Number [address] [address] * (ABNORMAL) Comprehensive metabolic panel (06/17/2024 8:43 AM EST) SODIUM 139 133 - 146 mmol/L [facility] POTASSIUM 3.4 3.3 - 5.1 mmol/L [facility] CHLORIDE 94(L) 96 - 108 mmol/L [facility] CO2 32 21 - 35 mmol/L [facility] BUN 19 6 - 19 mg/dL [facility] CREATININE 0.70 0.5 - 1.5 mg/dL [facility] GLUCOSE 112(H) 70 - 99 mg/dL [facility] ALBUMIN 4.6 3.9 - 4.8 g/dL [facility] TOTAL PROTEIN 8.0 6.5 - 8.0 g/dL [facility] CALCIUM 10.0 8.4 - 10.3 mg/dL [facility] ALKALINE PHOSPHATASE 132(H) 39 - 117 U/L [facility] TOTAL BILIRUBIN 0.3 0.0 - 1.2 mg/dL [facility] AST 19 0 - 37 U/L [facility] ALT 12 0 - 40 U/L [facility] GLOBULIN 3.4 1 - 4.8 g/dL [facility] EGFR 93 >59 mL/min/1.7 3m2 [facility] Comment:Estimated glomerular filtration rate calculated using the CKD-EPI refit equation. ANION GAP 16 10 - 20 mmol/L [facility] Blood 06/17/2024 8:43 AM EST 06/17/2024 8:50 AM EST us Efrain Melgar DO LAB BLOOD BKR ORDERABLES Final R esult [address] [address] * (ABNORMAL) Lipid panel (06/16/2020 10:50 AM EST) HDL 62 mg/dL [facility] Comment: Interpretation <40 mg/dL: Low HDL cholesterol (major risk factor for CHD) Greater than or equal to 60 mg/dL: High HDL cholesterol ( negative risk factor for CHD) HDL - cholesterol is affected by a number of factors, e.g. smoking, excerise, hormones, sex and age. CHOLESTEROL 250(H) 0 - 240 mg/dL [facility] TRIGLYCERIDES 145 30 - 160 mg/dL [facility] LDL 159(H) 50 - 129 mg/dL [facility] Comment: LDL levels in terms of risk for coronary heart disease: <100 mg/dL: Optimal 100-129 mg/dL: Near or above optimal 130-159 mg/dL: Borderline high 160-189 mg/dL: High >190 mg/dL: Very High CARDIAC RISK RATIO 4.0 3.3 - 4.4 C [facility] Blood 06/16/2020 10:5 0 AM EST 06/16/2020 10:58 AM EST us Giovanna Garcia FAMILY SUPPORT COORDINATOR LAB BLOOD BKR ORDERABLES Final Result [address] [address] * Pap Smear (12/24/2019 12:00 AM EDT) 12/24/2019 12/26/2019 3:0 7 PM EDT Narrative SEE NARRATIVE - 01/03/2020 2:55 PM EDT [address] [address] Retail And Promotions Coordinator: Erna Brown MD HISTOTECHNOLOGIST Cytology Report FINAL DIAGNOSIS A. PAP SMEAR [...] 52, 56, 58, 59, 66, 68) by ProspX Onclarity HR-HPV analysis. Clinical correlation is advised. This HPV test was performed at [facility], [address] [place] [address]. This test has been FDA approved for SurePath cervical cytology specimens. The accuracy and precision of this test for all other specimen sources has been verified in the Cytopathology Laboratory of the [facility] and has not been cleared or approved by the U.S. Food and Drug Administration. Clinical correlation is advised. CLINICAL HISTORY Date of Last Menstrual Period: Not Provided Menstrual History: Post Menopausal Other Clinical Conditions: Screening Pap SPECIMEN SOURCE A: PAP SMEAR (SUREPATH) CE Patient Name: ZAYNAB MCGUIRE : 1955 (Age: 64) Sex: F Institution: [facility] Location: [facility] Date of Collection: 12/24/2019 Date [...] (12/11/2018 3:41 PM EDT) HCV Negative Negative [facility] Comment: This is a screening test and should be confirmed with molecular testing Blood 12/11/2018 3:41 PM EDT 12/11/2018 3:48 PM EDT Giovanna Garcia NP LAB BLOOD BKR ORDERABLES Final Result [address] [address] * COLONOSCOPY FOR RESULT ENTRY ONLY (12/10/2014) Colonoscopy . Historical Provider HEALTH MAINTENANCE Final Result from Last 3 Months or Most Recently Relevant to Health Maintenance Insurance MED[place] PART [place] [id number] [employer] MEDEX SUPPLEMENT MEDICARE PART A & B [employer] SUPPLEMENT MEDICARE PART A & B [employer] SUPPLEMENT MEDICARE PART A & B [employer] MED[employer] SUPPLEMENT MEDICARE PART A & B [employer] MED[employer] SUPPLEMENT MEDICARE PART A & B [employer] MEDEX SUPPLEMENT [facility] MEDEX SUPPLEMENT MEDICARE PART A & B [employer] MEDEX SUPPLEMENT MEDICARE PART A & B [employer] MED[employer] SUPPLEMENT Advance Directives For more information, please contact: [phone] (9AM - 5PM [facility], Monday-Monday) Documents on File Type Date Recorded Patient Computer Publisher Expl anation Healthcare Proxy 04/30/2019 9:07 AM [...] Comments Code Discussion Comments: Patient Care Teams Imaging Scheduler Relationship Specialty Start Date End Date Hayley Ni MD [facility] [place] [address] PCP - General Internal Medicine 03/08/24 Additional Source Comments The information contained in this document represents components of the legal health record. It is not the complete legal health record.[facility]
--- OUTSIDE RECORDS SUMMARY | 2025-04-24 12:44 | XMS_ITS | Encounter Summary ---
Author Organization [facility] Address [address] [facility] [address] [place] [address] Phone Care Team Providers Care Supervisor Inspection Room Name Role Phone Giovanna Garcia NP Primary Care Provider [phone] Geronimo Beltran MD Unavailable [phone] Emely Barnes RN Unavailable [phone] Unknown, Unknown Primary Care Provider Hayley Couch MD Primary Care Provider Encounter Details Date Type Department Care Team (Late Contact Info) Description 03/20/2019 Ancillary Orders [facility],Outside [facility] [address] [place], [place] [phone] System, Provider Not In, [place] [address] Social History Tobacco Use Types Packs/Day Years [...] PM EST Office Visit [facility] [address] [place] [address] [place] [address] Efrain Melgar DO [address] [place] [address] [email or web address] documented as of [...] of this encounter Care Teams Supervisor Inspection Room Relationship Specialty Start Date End Date Giovanna Garcia NP [email or web address] PCP - General Family Medicine 11/15/17 08/22/23 Unknown, Daxa, MD PCP - General 08/23/23 03/07/24 Hayley Ni MD [address] [place] [address] [place] [address] PCP - General Internal Medicine 03/08/24 Geronimo Beltran MD [address] [place] [address] [email or web address] Insurance Assigned Provider 09/19/20 06/17/23 Emely Barnes, RN [address] [place] [address] [email or web address] PHCM Family Engagement Specialist 07/27/21 08/10/21 documented as of this encounter Additional Source Comments The information contained in this document represents components of the legal health record. It is not the complete legal health record.[facility]
--- OUTSIDE RECORDS SUMMARY | 2025-04-24 12:44 | XMS_ITS | Encounter Summary ---
Author Organization [facility] Address [address] [facility] [address] [place] [address] Phone Care Team Providers Care Camelid Fiber Sorter Name Role Phone Giovanna Garcia NP Primary Care Provider Geronimo Beltran MD Unavailable [phone] Emely Barnes RN Unavailable [phone] Unknown, Unknown Primary Care Provider Hayley Couch MD Primary Care Provider Encounter Details Date Type Department Care Team (Late st Contact Info) Description 03/10/2020 Procedure [facility], Ct Scan - [address] [address] Social History Tobacco Use Types Packs/Day Years [...] 1:40 PM EST Office Visit [facility] [place] [address] Efrain Melgar DO [address] [place] [address] [email or web address] documented as of this [...] documented as of this encounter Care Teams Camelid Fiber Sorter Relationship Specialty Start Date End Date Giovanna Garcia NP [email or web address] PCP - General Family Medicine 11/15/17 08/22/23 Unknown, Unknown, MD PCP - General 08/23/23 03/07/24 Hayley Ni MD [facility] [place] [address] PCP - General Internal Medicine 03/08/24 Geronimo Beltran MD [address] [place] [address] Insurance Assigned Provider 09/19/20 06/17/23 Emely Barnes, ABE [address] [place] [address] [email or web address] PHCM Pullman Car Clerk 07/27/21 08/10/21 documented as of this encounter Additional Source Comments The information contained in this document represents components of the legal health record. It is not the complete legal health record.[facility]
--- OUTSIDE RECORDS SUMMARY | 2025-04-24 12:44 | XMS_ITS | Encounter Summary ---
Author Organization [facility] Address [address] [facility] [address] [place] [address] Phone Care Team Providers Care Spinning Doffer Name Role Phone Giovanna Garcia NP Primary Care Provider [phone] Geronimo Beltran MD Unavailable [phone] Emely Barnes RN Unavailable [phone] Unknown, Unknown Primary Care Provider Hayley Couch MD Primary Care Provider Encounter Details Date Type Department Care Team (Late Contact Info) Description 03/20/2019 Ancillary Orders [facility],Outside [facility] [address] [place], [place] [phone] System, Provider Not In, [place] [address] Social History Tobacco Use Types Packs/Day Years [...] 1:40 PM EST Office Visit [facility] [address] [place] [address] [place] [address] Efrain Melgar DO [address] [place] [address] [email or web address] documented as of this [...] documented as of this encounter Care Teams Spinning Doffer Relationship Specialty Start Date End Date Giovanna Garcia NP [email or web address] PCP - General Family Medicine 11/15/17 08/22/23 Unknown, Unknown, MD PCP - General 08/23/23 03/07/24 Hayley Ni MD [address] [place] [address] [place] [address] PCP - General Internal Medicine 03/08/24 Geronimo Beltran MD [address] [place] [address] [email or web address] Insurance Assigned Provider 09/19/20 06/17/23 Emely Barnes, RN [address] [place] [address] [email or web address] PHCM Mathematician Research 07/27/21 08/10/21 documented as of this encounter Additional Source Comments The information contained in this document represents components of the legal health record. It is not the complete legal health record.[facility]
--- OUTSIDE RECORDS SUMMARY | 2025-04-24 12:44 | XMS_ITS | Encounter Summary ---
Author Organization [facility] Address [address] [employer] [facility] [address] [place] [address] Phone Care Team Providers Care Marketing Financial Analyst Name Role Phone Giovanna Garcia NP Primary Care Provider [phone] Geronimo Beltran MD Unavailable [phone] Emely Barnes RN Unavailable [phone] Unknown, Unknown Primary Care Provider Hayley Couch MD Primary Care Provider Encounter Details Date Type Department Care Team (Late Contact Info) Description 03/20/2019 Ancillary Orders [facility],Outside [facility] [address] [place], [place] [phone] System, Provider [place] In, [place] [address] Social History Tobacco Use Types Packs/Day Years [...] PM EST Office Visit [facility] [address] [place] [address] [place] [address] Efrain Melgar DO [address] [place] [address] [email or web address] documented as of [...] as of this encounter Care Teams Marketing Financial Analyst Relationship Specialty Start Date End Date Giovanna Garcia NP [email or web address] PCP - General Family Medicine 11/15/17 08/22/23 Unknown, Daxa, MD PCP - General 08/23/23 03/07/24 Hayley Ni MD [address] [place] [address] [place] [address] PCP - General Internal Medicine 03/08/24 Geronimo Beltran MD [address] [place] [address] [email or web address] Insurance Assigned Provider 09/19/20 06/17/23 Emely Barnes, RN [address] [place] [address] [email or web address] PHCM Java Golden Gate Developer 07/27/21 08/10/21 documented as of this encounter Additional Source Comments The information contained in this document represents components of the legal health record. It is not the complete legal health record.[facility]
== END 2025-04-24 11:03 | disposition home or self-care (01) ==
LOC: HO.HPS 10:22
PROVIDERS: PCP Internal Medicine; Visit Provider Hospitalist
DX: J44.0 Chronic obstructive pulmonary disease with (acute) lower respiratory infection (principal); J44.9 Chronic obstructive pulmonary disease, unspecified; C34.90 Malignant neoplasm of unspecified part of unspecified bronchus or lung; G47.33 Obstructive sleep apnea (adult) (pediatric)
CPT/HCPCS: 99214; G2211

== ENCOUNTER → 2025-04-24 10:21 | Outpatient (BNVA) | payer MEDICARE, SELFPAY | PROVIDERS: PCP Internal Medicine; Visit Provider Hospitalist | DX: J44.0 Chronic obstructive pulmonary disease with (acute) lower respiratory infection (principal); Z87.891 Personal history of nicotine dependence; Z85.118 Personal history of other malignant neoplasm of bronchus and lung; G47.33 Obstructive sleep apnea (adult) (pediatric); Z99.89 Dependence on other enabling machines and devices; Z99.81 Dependence on supplemental oxygen | CPT/HCPCS: 99212 ==